=== PATIENT | female | born 1960 | race Hispanic/Latino ===

== ENCOUNTER 2017-07-13 01:28 | Emergency (ER) | payer MEDICARE, MEDICAID ==
[2017-07-13 02:39] LABS: #Basophils 0.1 thou/uL (0.0-0.2); #Eosinphils 0.2 thou/uL (0.0-0.7); #Lymphocytes 1.8 thou/uL (1.20-3.40); #Neutrophils 7.4 thou/uL (1.40-6.50); %Basophils 0.8 % (0.0-1.0); %Eosinophils 1.9 % (0.0-10.0); %Lymphocytes 17.3 % (21.0-51.0); %Monocytes 9.8 % (0.0-10.0); Hematocrit 32.5 % (36.0-47.0); Mean Platelet Volume 6.6 fL (7.4-10.4); Red Blood Cell (RBC) Count 3.41 mill/uL (4.20-5.40); White Blood Cell (WBC) Count 10.6 thou/uL (4.8-10.8)
[2017-07-13 03:01] LABS: Anion Gap 22 mmol/L (10-20); BUN (Urea Nitrogen) 78 mg/dL (9.8-20.1); Calc. Creatinine Clearance 0 mL/min (70-130); Carbon Dioxide 23 mmol/L (22-29); Chloride 94 mmol/L (98-107); Estimated GFR-MDRD 5
[2017-07-13 04:36] LABS: PTT 33.6 SEC (22.9-36.1); Prothrombin Time 14.4 SEC (12.0-14.7)
--- NOTE | 2017-07-13 06:14 | ER ---
DATE OF SERVICE: 07/13/2017 Please refer to the patient's electronic medical record for details of her visit. In summary, the patient presents complaining of facial pain and headache which began earlier on ay, around noon. She had fallen earlier in the day, though denies having struck her head, loss of c onsciousness, or vomited since her fall. She denied any pain or injury at the time of her fall. He r fall was not syncopal. Her family states that \\\\"she just got weak and fell down in a sitting pos ition.\\\\" On exam, the patient's neurologic function is normal, with normal cranial nerves and ybklur-lf-vixt finger. She had no focal motor or sensory deficits, and her speech was normal. She remained hemody namically stable throughout her ER stay. Her pain improved with treatment. Findings are consistent with a cerebellar mass, with some mild effacement of the fourth ventricle per the radiologist chanelle Johns discussed the case with BERNARDO Bettencourt, who reviewed the patient's images and recommends against an emergent MRI, requesting one early this morning. The patient and her family were updated with the findings and plans for admission as well as answered prognosis given the above findings. They verba lized understanding and all questions were answered. She is not septic or toxic appearing. She is not in respiratory distress, and was not hypoxic during her ER stay. There is no evidence of signif icant acute infectious etiology. Of note, her potassium level was elevated, though, there are no ne w EKG changes compared with prior tracing. Calcium administration is not indicated. I discussed th e case with Dr. Monk, her folded cloth taper, who recommended treatment as given. She will be dialyzed lat er this morning. I also discussed the case with Dr. Crooks, the internal medicine physician on duty, who will consult on the patient for medical management given her multiple comorbidities. The patie nt remained stable throughout her ER stay and was stable at the time of admission, with a guarded pr ognosis.
[2017-07-13] MEDS ORDERED: Acetaminophen 325 MG TAB PO PRN (07:18)
[2017-07-13] MEDS ORDERED: Bisacodyl 10 MG SUPP PR PRN (07:18)
[2017-07-13] MEDS ORDERED: Ondansetron HCl/PF 4 MG/2 ML Vial IVP PRN (07:18)
[2017-07-13] MEDS ORDERED: Mag-Al 1200 mg/1200 mg/30 ML UDCUP PO PRN (07:18)
--- NOTE | 2017-07-13 08:18 | CT ---
PRELIMINARY REPORT/[facility]/EMERGENCY AFTER HOURS PROCEDURE: Addendum created by Rolf Chandra MD on 07/13/2017 3:46 AM Central Time ([place] \[place]\ [place]) THIS REPORT CONTAINS FINDINGS THAT MAY BE CRITICAL TO PATIENT CARE. The findings were verbally commu nicated via telephone conference with LADY FIGUEROA at 3:46 AM CDT on 07/13/2017. The findings we re acknowledged and understood. Initial Report created on 07/13/2017 3:17 AM Central Time ([place] \[place]\ [place]) EXAM: CT Head Without Intravenous Contrast EXAM DATE/TIME: Exam ordered 07/13/2017 2:44 AM CLINICAL HISTORY: 56 years old, female; Pain and injury or trauma; Fall; Initial encounter; Abrasion; Not specified; H eadache; Headache not specified; Patient HX: 56 yo f presents to ed C/O face pain that started today at around 1200, worse in mouth and both jaws. States that today around 10: 00 pt felt weak and fell into sitting position on grass, denies hitting head. Denies chest pain, denies SOB, denies fever. TECHNIQUE: Axial computed tomography images of the head/brain without intravenous contrast. COMPARISON: No relevant prior studies available. FINDINGS: Brain: There is a 2.2 cm heterogeneous mass overlying the mid cerebellar region (possibly vermis) wi th mass effect and mild flattening of the fourth ventricle. No hemorrhage. No significant white sammy er disease. No edema. Ventricles: Normal. No ventriculomegaly. Bones/joints: Normal. No acute fracture. Soft tissues: Normal. Sinuses: Unremarkable as visualized. No acute sinusitis. Mastoid air cells: Unremarkable as visualized. No mastoid effusion. IMPRESSION: 1. Midline infratentorial mass with mild flattening of the fourth ventricle. Further evaluation with MRI of brain without and with contrast is advised. 2. No acute intracranial hemorrhage. Thank you for allowing us to participate in the care of your patient. Dictated and Authenticated by: Rolf Chandra MD 07/13/2017 3:17 AM Central Time ([place] \[place]\ [place]) FINAL REPORT NONCONTRAST HEAD CT: Date: 07/13/17 COMPARISON: 09/09/15. HISTORY: Trauma. Post-traumatic pain. TECHNIQUE: Noncontrast head CT is performed from skull base to skull vertex. FINDINGS: This report is in agreement with the preliminary report by Carla. There is no evidence of post-trauma tic sequelae. There is a questionable mass in the midline of the posterior fossa with some mass effe ct upon the fourth ventricle. No associated hydrocephalus. Further evaluation with pre and postcontr ast MRI is recommended. POS: [facility]
--- NOTE | 2017-07-13 08:20 | CT ---
PRELIMINARY REPORT/[facility]/EMERGENCY AFTER HOURS PROCEDURE: EXAM: CT Maxillofacial Without Intravenous Contrast EXAM DATE/TIME: Exam ordered 07/13/2017 2:42 AM CLINICAL HISTORY: 56 years old, female; Pain; Jaw pain; Patient HX: 56 yo f presents to ed C/O face pain that started today at around 1200, worse in mouth and both jaws. States that today around 10: 00 pt felt weak and fell into sitting position on grass, denies hitting head. Denies chest pain, denies SOB, denies fev er. TECHNIQUE: Axial computed tomography images of the face without intravenous contrast. Coronal and sagittal reformatted images were created and reviewed. COMPARISON: No relevant prior studies available. FINDINGS: Bones/joints: No acute facial bone fractures identified. Soft tissues: Normal. Orbits: Normal. Sinuses: Normal. No air-fluid levels. Dental: There are periapical lucencies of several maxillary and mandibular teeth suggestive of denti gerous disease. IMPRESSION: No acute facial bone fractures identified. Thank you for allowing us to participate in the care of your patient. Dictated and Authenticated by: Rolf Chandra MD 07/13/2017 3:13 AM Central Time ([place] \T\ [place]) FINAL REPORT MAXILLOFACIAL CT WITHOUT CONTRAST: Date: 07/13/17 HISTORY: Facial trauma. Facial pain. COMPARISON: None. TECHNIQUE: Maxillofacial CT is performed in the axial plane. Reformatted images are submitted for interpretatio n. FINDINGS: This report is in agreement with the preliminary report by Carla. There is no post-traumatic sequelae . There is evidence of periapical lucencies due to dentigerous disease. POS: [facility]
--- NOTE | 2017-07-13 10:01 | CON ---
DATE OF CONSULTATION: 07/13/2017 PRIMARY CARE PHYSICIAN: [facility] call admission. REASON FOR CONSULTATION: Medical comanagement. HISTORY OF PRESENT ILLNESS: A 56-year-old female with history of diabetes type 2, hyperten marleen, ESRD on hemodialysis, who presented to the emergency room for evaluation of facial pain. [place] ent was also experiencing headache. The patient reports that yesterday when she was coming from [facility], she fell down and she was feeling unsteady. She did not hit her head. She denies any weak ness of either extremity. She never had any seizure problem. In the emergency room, they did a CT brain and patient was found with infratentorial mass with mild flattening of the fourth ventricle. Neurosurgeon was notified after that and they admitted under [facility] service. Patient also had facial bone CT scan, which was negative for any acute process. Austin carver blood tests showed hyperkalemia. Normally, this patient goes for dialysis on Wednesday, a wednesday. Dr. Monk is already consulted. He is going to do dialysis. PAST MEDICAL HISTORY: End-stage renal disease on hemodialysis Wednesday, , and Wednesday; reed tolic heart failure, hypertension, diabetes type 2, obesity. PAST SURGICAL HISTORY: x5, hysterectomy, AV fistula in left upper extremity in 11/2016, t unneled right internal jugular hemodialysis catheter placement. PAST PSYCHIATRIC HISTORY: Reviewed and negative. ALLERGIES: No known drug allergies. FAMILY HISTORY: Hypertension runs among several family members. SOCIAL HISTORY: Patient lives in [place]. She is , currently unemployed. She has a remote hi story of smoking. She denies any alcohol or other illicit drug abuse. REVIEW OF SYSTEMS: The following complete review of systems was negative, unless otherwise mentione d in the HPI or below: Constitutional: Weight loss or gain, ability to conduct usual activities. Skin: Rash, itching. Eyes: Double vision, pain. ENT/Mouth: Nose bleeding, neck stiffness, pain, tenderness. Cardiovascular: Palpitations, dyspnea on exertion, orthopnea. Respiratory: Shortness of breath, wheezing, cough, hemoptysis, fever or night sweats. Gastrointestinal: Poor appetite, abdominal pain, heartburn, nausea, vomiting, constipation, or diar dax. Genitourinary: Urgency, frequency, dysuria, nocturia. Musculoskeletal: Pain, swelling. Neurologic/Psychiatric: Anxiety, depression. Allergy/Immunologic: Skin rash, bleeding tendency. Please see my HPI for pertinent positives and negatives. All other review of systems reviewed and n egative except as mentioned in the HPI. CURRENT HOME MEDICATIONS: Aspirin 81 mg p.o. daily, Lipitor 40 mg p.o. at bedtime, Levemir 10 units subq in the morning, Lisinopril 2.5 mg p.o. daily, metoprolol 50 mg p.o. b.i.d., amlodipine 10 mg p .o. daily, clonidine 0.1 mg p.o. b.i.d., tramadol 50 mg q.4 hours p.r.n. EMERGENCY ROOM COURSE: The patient is given Kayexalate 30 grams, lactulose 30 grams and morphine 4 mg. PHYSICAL EXAMINATION: VITAL SIGNS: On arrival, blood pressure 156/74, pulse 75, respiratory rate 18, temperature 98.2, sa turation 100% on room air, weight 70.3 kilograms. GENERAL: Patient is currently alert, awake, no obvious acute distress. HEAD: Normocephalic, atraumatic. EYES: Pupils round, reactive to light. Extraocular muscles intact. ENT: Poor dentition. Oropharynx within normal limits. Moist mucous membranes, no oral lesion. NECK: Supple. Range of motion is normal. No meningeal signs of irritation. LUNGS: Clear to auscultation without any rhonchi or rales. CARDIAC: S1, S2 regular. No murmur, no gallop, no rub. ABDOMEN: Soft, bowel sounds present, nontender, nondistended. No organomegaly, no mass, no suprapu bic tenderness. BACK: Unremarkable, no CVA tenderness. EXTREMITIES: Upper extremity: Passive movement of all joints are normal, left brachial AV fistula with palpable thrill. Lower extremity: No edema. Good peripheral pulsation. SKIN: No skin rash. HEMATOLOGICAL: No lymphadenopathy. PSYCHIATRIC: Normal affect. NEUROLOGIC: Nonfocal examination. Cranial nerves II through XII intact. Motor and sensation withi n normal limits. No cerebellar sign. Plantar bilateral flexor. IMAGING: EKG based on my review, first degree AV block without any ischemic changes. CT brain show ing midline infratentorial mass with flattening of the fourth ventricle. No hemorrhage. CT facial was negative for any fracture or dislocation. SIGNIFICANT LABORATORY DATA: CBC: WBC 10.6, hemoglobin 11.0, platelet 241. INR 1.1. BMP: Sodium 133, potassium 6.0, chloride 94, anion gap 22, BUN 78, creatinine 8.47, calcium 8.0. ASSESSMENT AND PLAN: 1. Headache and facial pain with infratentorial brain mass on CT scan. Patient is going to be eval uated with MRI brain. Neurosurgeon on the case. We will defer further plan to them. 2. Hyperkalemia. Patient is given Kayexalate, lactulose in the emergency room. We will discontinu e lisinopril. The patient is due for dialysis. Dr. Monk is consulted and we will repeat BMP tomorro w. 3. End-stage renal disease on hemodialysis Wednesday, , and Wednesday. Patient will have dial ysis as per her regular scheduled today and Dr. Monk will see this patient. 4. Diabetes type 2. We will continue insulin as per sliding scale protocol. Diabetic diet will be given. 5. Dyslipidemia. We will continue Lipitor 40 mg p.o. at bedtime. 6. Hypertension. We will continue metoprolol 50 mg p.o. b.i.d., amlodipine 10 mg p.o. daily and cl onidine 0.1 mg twice daily. 7. Anemia of renal disease. The patient will have ferrous sulfate 325 mg p.o. daily upon discharge . 8. Deep venous thrombosis prophylaxis not needed. 9. Gastrointestinal prophylaxis. The patient will have Pepcid 20 mg p.o. daily. CODE STATUS: The patient is FULL CODE. Patient does not have any surrogate decision maker. Disposition and plan based on primary team.
--- NOTE | 2017-07-14 15:16 | HP ---
TIME: 07:30. HISTORY OF PRESENT ILLNESS: Ms. Saldivar is a 56-year-old woman who presents to the Emergency Departm ent for evaluation of facial pain, headache and a fall yesterday around 10:00 in the morning. A CT scan was performed in the Emergency Department that revealed possible infratentorial mass at midline near the cerebellar vermis potentially flattening the fourth ventricle mildly. For this reason, Ne urosurgery was consulted. At bedside, the patient is awake and alert. She answers my questions xiomara ropriately and is oriented x4 to place, location, situation, date and time. She has full function o f all extremities. She denies any other problems than headache and facial pain that seems to run in the distribution of the second and third branch of trigeminal nerve bilaterally. She is not sensit zurdo to this area. She states that this particular pain just began roughly 12-24 hours ago. She has end-stage renal disease. The patient is on hemodialysis 3 times a week. Family reports that she m ore recently has started to become very weak after each of her dialysis treatments, but this is not an uncommon phenomenon. PAST MEDICAL HISTORY: End-stage renal disease, diastolic heart failure, hypertension, diabetes type 2 and obesity. PAST SURGICAL HISTORY: section x5, hysterectomy, AV fistula in the left upper extremity, r ight IJ hemodialysis catheter also. ALLERGIES: No known drug allergies. PHYSICAL EXAMINATION: GENERAL: On examination, again the patient is alert and oriented x4. HEENT: Pupils are equal, round and reactive to light, although she also reports that she has been s eeing an eye doctor for some time for significant visual loss and as such her extraocular movements are intact, but she does not follow my finger very fluently and she is unable to tell me how many fi ngers I am holding up at a distance of about 4 feet. Her speech is not impacted. NECK: Soft and supple. Trachea is midline. EXTREMITIES: She has good strength in bilateral upper and lower extremities. There is no sensory d isturbance that I can turn. NEUROLOGIC: Her cranial nerves other than II and III are completely intact. ASSESSMENT: Possible cerebellar lesion. PLAN: At this time, we will admit patient to observation status on the stroke floor to obtain an MR I with contrast of her brain to better evaluate the findings on CT scan and we will get her in the d ialysis. We will consult the Hospitalist Service as well as Nephrology for this purpose. We will l landon discharge later today or tomorrow.
--- NOTE | 2017-07-14 18:44 | DIS ---
DATE OF ADMISSION: 07/13/2017 DATE OF DISCHARGE: 07/13/2017 HOSPITAL COURSE: Ms. Saldivar was brought into the emergency department this morning for headache, fa cial pain as well as a recent history of falls and finding of abnormal CT scan showing possible infr atentorial mass in midline cerebellum. At this time, patient is stable enough to be discharged home and resume dialysis in her normal setting. We will likely queue up on contrast MRI in the outpatie nt setting in our clinic on to discuss results. Her hospital stay was extraordinarily brie f. She was admitted by Dr. Adriel Felix on 07/13/2017, discharged on the same day within few hour s. Consultations were ordered to Nephrology and hospital service. No additional consultations were ordered. No imaging was ordered and the patient was sent home in stable condition.
== END 2017-07-13 10:43 | disposition home or self-care (01) ==
LOC: ERS 01:28
DX: G93.9 Disorder of brain, unspecified (principal); I12.0 Hypertensive chronic kidney disease with stage 5 chronic kidney disease or end stage renal disease; N18.6 End stage renal disease; E87.5 Hyperkalemia; E11.9 Type 2 diabetes mellitus without complications; E78.5 Hyperlipidemia, unspecified; Z87.891 Personal history of nicotine dependence; Z79.4 Long term (current) use of insulin; Z79.82 Long term (current) use of aspirin; Z79.891 Long term (current) use of opiate analgesic; Z79.899 Other long term (current) drug therapy
CPT/HCPCS: 70450; 70486; 80048; 85025; 85610; 85730; 93005; J2270

== ENCOUNTER 2017-07-13 20:32 | Emergency (ER) | payer MEDICARE, MEDICAID ==
[2017-07-13 21:27] LABS: #Eosinphils 0.1 thou/uL (0.0-0.7); #Lymphocytes 1.2 thou/uL (1.20-3.40); #Monocytes 0.7 thou/uL (0.11-0.59); #Neutrophils 6.9 thou/uL (1.40-6.50); %Basophils 0.3 % (0.0-1.0); %Eosinophils 1.4 % (0.0-10.0); %Lymphocytes 13.4 % (21.0-51.0); %Monocytes 7.8 % (0.0-10.0); Hematocrit 38.2 % (36.0-47.0); Mean Platelet Volume 6.8 fL (7.4-10.4); Red Blood Cell (RBC) Count 3.99 mill/uL (4.20-5.40)
[2017-07-13 21:47] LABS: PTT 30.6 SEC (22.9-36.1); Prothrombin Time 14.6 SEC (12.0-14.7)
[2017-07-13 21:48] LABS: ALT (SGPT) 9 U/L (8-55); AST (SGOT) 15 U/L (5-34); Alkaline Phosphatase 113 U/L (40-150); Anion Gap 17 mmol/L (10-20); BUN (Urea Nitrogen) 32 mg/dL (9.8-20.1); Bilirubin, Total 0.4 mg/dL (0.2-1.2); Calc. Creatinine Clearance 0 mL/min (70-130); Calcium 8.7 mg/dL (7.8-10.44); Carbon Dioxide 31 mmol/L (22-29); Chloride 92 mmol/L (98-107); Estimated GFR-MDRD 9; Globulin 4.9 g/dL (2.4-3.5); Protein, Total 8.9 g/dL (6.0-8.3)
--- NOTE | 2017-07-13 21:57 | RAD ---
ACUTE ABDOMINAL SERIES: 07/13/17 HISTORY: Headache since last night. Nausea and vomiting. CHEST X-RAY: Compared to study on 01/04/17. The cardiac silhouette and pulmonary vasculature are within normal limits. The lungs are clear. The tunneled right sided hemodialysis catheter has been removed. No other interval change. UPRIGHT AND SUPINE VIEWS OF THE ABDOMEN: There is gaseous distention of loops of bowel which appear to represent the colon. There is a small to moderate amount of retained fecal material seen in the region of the ascending colon. There is a small calcification seen in the left abdomen adjacent to the L3-4 interspace which cannot be further localized on this exam. May potentially represent a calcification in gonadal vein, although uretera l calculus cannot be entirely excluded. IMPRESSION: 1. Gaseous distention of the colon with moderate amount of retained fecal material in the ascen ding colon. 2. Calcification just to the left of the L3-4 interspace which cannot be further localized. Thi s may represent a gonadal vein calcification although a ureteral calculus is not entirely excluded. POS: SALLY
--- NOTE | 2017-07-13 22:59 | MRI ---
MRI BRAIN WITHOUT IV CONTRAST: 07/13/17 HISTORY: Headache. Patient was mowing the grass today and felt weak and fell into a sitting position. Headach e. Report from recent CT of the head questioned mass in the midline posterior fossa. COMPARISON: CT head on 07/13/17 at 0244 hours. FINDINGS: There is no evidence of a mass seen in the midline in the region of the cerebellar vermis as questio delon on CT exam. There is no edema present in this region. There is a focal areas of susceptibility seen within the left cerebellar hemisphere on gradient ech o images which demonstrates corresponding decreased signal intensity on T2 and FLAIR images and may represent hemosiderin deposition related to prior hemorrhage. No abnormality seen in this region on the CT scan exam. There is scattered punctate patchy areas of increased FLAIR and T2 weighted signal intensity in the periventricular white matter likely reflective of mild to moderate chronic small vessel ischemic charo nges. There is no evidence of an acute infarction. Septum pellucidum and third ventricle are in the midline. There is mild cerebral volume loss not une xpected for the patient's age. Ventricular system is normal in size, shape and position. Grossly appropriate flow voids are demonstrated at the base of the brain. Mucosal thickening is present in the left sphenoid sinus. The picayune lenses are absent. There is sug gestion of a small mastoid effusion on the right. Incidentally noted is an empty sella turcica. There is suggested minimal mucosal thickening in the r ight maxillary antrum. IMPRESSION: 1. No evidence of a mass in the midline posterior fossa in expected location of the cerebellar vermis as questioned on the CT scan exam. Findings on this study are related to normal midline struc tures and findings on the CT scan exam may be accentuated due to plane of scanning. There is no zarina a or obvious mass in this region. 2. Focal area of susceptibility left cerebellar hemisphere likely related to hemosiderin deposi tion from prior focal hemorrhage or less likely very small cavernoma. 3. Chronic small vessel ischemic change. 4. Mild cerebral and cerebellar volume loss. 5. Minimal sinus disease. 6. Incidental note is made of an empty sella turcica. POS: [facility]
[2017-07-13] MEDS ORDERED: Ondansetron HCl/PF 4 MG/2 ML Vial ONE (23:33)
--- NOTE | 2017-07-30 14:27 | EKG ---
Test Reason : Blood Pressure : / mmHG Vent. Rate : 082 BPM Atrial Rate : 082 BPM P-R Int : 204 ms QRS Dur : 106 ms QT Int : 404 ms P-R-T Axes : 039 -56 056 degrees QTc Int : 472 ms Normal sinus rhythm Possible Left atrial enlargement Left axis deviation Left ventricular hypertrophy Cannot rule out Septal infarct , age undetermined Abnormal ECG Confirmed by MANINDER BARRAZA MD ([id number]), newspaper photo editor CAMILLA MUNGUIA ([id number]) on 07/30/2017 2:26:43 PM Referred By: MADI Confirmed By:MANINDER BARRAZA MD
== END 2017-07-14 00:26 | disposition home or self-care (01) ==
LOC: ERS 20:32
DX: I10 Essential (primary) hypertension (principal); E11.9 Type 2 diabetes mellitus without complications; E78.5 Hyperlipidemia, unspecified; Z87.891 Personal history of nicotine dependence; Z79.891 Long term (current) use of opiate analgesic; Z79.899 Other long term (current) drug therapy; Z79.4 Long term (current) use of insulin; Z79.82 Long term (current) use of aspirin
CPT/HCPCS: 36416; 70450; 70486; 70551; 74022; 80048; 85025; 85610; 85730; 93005; 94760; 96374; 96375; J2270; J2405

== ENCOUNTER 2017-07-17 08:29 | Emergency (ER) | payer MEDICARE, MEDICAID ==
[2017-07-17 09:00] LABS: #Eosinphils 0.2 thou/uL (0.0-0.7); #Lymphocytes 1.7 thou/uL (1.20-3.40); #Monocytes 0.7 thou/uL (0.11-0.59); #Neutrophils 4.1 thou/uL (1.40-6.50); %Basophils 0.7 % (0.0-1.0); %Eosinophils 2.6 % (0.0-10.0); %Monocytes 9.8 % (0.0-10.0); Hematocrit 36.2 % (36.0-47.0); Mean Platelet Volume 6.7 fL (7.4-10.4); Red Blood Cell (RBC) Count 3.82 mill/uL (4.20-5.40); White Blood Cell (WBC) Count 6.6 thou/uL (4.8-10.8)
[2017-07-17 09:23] LABS: ALT (SGPT) 9 U/L (8-55); AST (SGOT) 20 U/L (5-34); Alkaline Phosphatase 96 U/L (40-150); Anion Gap 25 mmol/L (10-20); BUN (Urea Nitrogen) 53 mg/dL (9.8-20.1); Bilirubin, Total 0.3 mg/dL (0.2-1.2); CK (CPK) 125 U/L (29-168); Calc. Creatinine Clearance 0 mL/min (70-130); Calcium 8.9 mg/dL (7.8-10.44); Carbon Dioxide 24 mmol/L (22-29); Chloride 94 mmol/L (98-107); Estimated GFR-MDRD 6; Globulin 4.6 g/dL (2.4-3.5); Protein, Total 8.3 g/dL (6.0-8.3)
[2017-07-17 09:27] LABS: Troponin I 0.017 ng/mL (< 0.028)
[2017-07-17] MEDS ORDERED: traMADol HCl 50 MG TAB ONE (10:17)
--- NOTE | 2017-07-20 15:09 | RAD ---
ACUTE ABDOMINAL SERIES: CHEST XRAY: 07/13/17 HISTORY: Headache since last night. Nausea and vomiting. CHEST X-RAY: Compared to study on 01/04/17. The cardiac silhouette and pulmonary vasculature are within normal limits. The lungs are clear. The tunneled right sided hemodialysis catheter has been removed. No other interval change. UPRIGHT AND SUPINE VIEWS OF THE ABDOMEN: There is gaseous distention of loops of bowel which appear to represent the colon. There is a small to moderate amount of retained fecal material seen in the region of the ascending colon. There is a small calcification seen in the left abdomen adjacent to the L3-4 interspace which cannot be further localized on this exam. May potentially represent a calcification in gonadal vein, although uretera l calculus cannot be entirely excluded. IMPRESSION: 1. Gaseous distention of the colon with moderate amount of retained fecal material in the asce nding colon. 2. Calcification just to the left of the L3-4 interspace which cannot be further localized. This may represent a gonadal vein calcification; although, a ureteral calculus is not entirely excluded.
== END 2017-07-17 11:25 | disposition home or self-care (01) ==
LOC: ERS 08:29
DX: R68.84 Jaw pain (principal); E11.9 Type 2 diabetes mellitus without complications; E78.5 Hyperlipidemia, unspecified; I10 Essential (primary) hypertension; Z87.891 Personal history of nicotine dependence
CPT/HCPCS: 36415; 71010; 80053; 82553; 83880; 84484; 85025; 93005; 94760

== ENCOUNTER 2017-08-06 12:51 | Outpatient (CLI) | payer MEDICARE, MEDICAID ==
--- NOTE | 2017-08-06 15:43 | ULT ---
RIGHT BREAST ULTRASOUND: Date: 08/06/17 HISTORY: Abnormal mammography. COMPARISON: Mammogram same day. FINDINGS: Superficial soft tissues of the right breast, 12 o'clock, 5.0 cm from the nipple, has a wider than t all complicated cyst. The cyst is ovoid in nature and measures approximately 1.8 x 0.7 cm. There is an echogenic halo around this, which is circumferential, likely sequelae of underlying escaped fluid and hemorrhage. There is overlying hematoma at this area seen on the skin. IMPRESSION: BIRADS 3: Probably Benign Finding - Short-Interval Follow-Up Suggested Complicated cyst right breast, 12 o'clock, 5.0 cm from the nipple. This likely represents a recently ruptured cyst. No mural nodularity. No internal septations. Follow-up ultrasound and mammogram in 6 months recommended. The facility will notify the patient of the need for additional imaging services. POS: [facility]
--- NOTE | 2017-08-06 15:47 | MMO ---
BILATERAL DIAGNOSTIC MAMMOGRAM: Date: 08/06/17 HISTORY: Palpable right breast mass. COMPARISON: None. FINDINGS: Bilateral diagnostic CC and MLO, as well as right ML mammograms performed. There is a palpable marke r in the right breast with a 2.1 x 2.0 cm mass. This has well-defined borders and is sharply margina nancy and is somewhat lobular in appearance. Benign calcifications left breast. IMPRESSION: BIRADS 3: Probably Benign Finding - Short-Interval Follow-Up Suggested Given the lack of comparison examinations, the likely complicated cyst in the right breast, 12 o'cathryn ck, 5.0 cm from the nipple, should be evaluated in 6 months with mammogram and ultrasound. The facility will notify the patient of the need for additional imaging services. POS: [facility]
== END 2017-08-06 12:52 | disposition home or self-care (01) ==
LOC: MAMMO 12:51
PROVIDERS: ATTEND Family Medicine
DX: N63.0 Unspecified lump in unspecified breast (principal)
CPT/HCPCS: 76642; G0204; 77066

== ENCOUNTER 2017-08-19 10:21 | Day surgery (SDC) | payer MEDICARE, MEDICAID ==
[2017-08-18 12:57] VITALS: BMI 32.4
[~2017-08-19 10:21] MED LIST: Cyclopentolate 1% Opth Drop 2 ML BOT FS SCH; Fluorouracil 100 MG, EPINEPHrine 0.3 MG in Ophthalmic Irrigation Solution 500 ML IVPB SCH; Phenylephrine 2.5% Ophth Soln 5 ML BOT FS SCH
[2017-08-19] MEDS ORDERED: Phenylephrine 2.5% Ophth Soln 5 ML BOT ONE (10:51)
[2017-08-19] MEDS ORDERED: Cyclopentolate 1% Opth Drop 2 ML BOT ONE (10:51)
[2017-08-19] MEDS ORDERED: Fentanyl 100 MCG/2 ML VIAL ONE (11:46)
[2017-08-19] MEDS ORDERED: Diprivan 20 ML ONE (11:46)
[2017-08-19] MEDS ORDERED: Midazolam HCl 2 mg/2 ml Vial ONE (11:46)
[2017-08-19] MEDS ORDERED: Propofol 200 MG/20 ML VIAL ONE (11:54)
[2017-08-19] MEDS ORDERED: Lidocaine 2% MPF 10 ML AMP (For Epidural Use) ONE (11:54)
--- NOTE | 2017-08-19 13:50 | OP ---
DATE OF PROCEDURE: 08/19/2017 PREOPERATIVE DIAGNOSIS: Tractional retinal detachment, right eye. POSTOPERATIVE DIAGNOSIS: Tractional retinal detachment, right eye. PROCEDURE: Pars plana vitrectomy, complex retinal detachment repair, right eye. SURGEON: Grey Lugo M.D. ANESTHESIA: Local with monitored anesthesia care. COMPLICATIONS: None. PROCEDURE IN DETAIL: The patient was identified in the preoperative holding area. Appropriate info rmed consent for the planned surgical procedure on the right eye had been obtained. The patient was transported to the operative suite where appropriate cardiopulmonary monitoring was established. L ocal anesthesia was obtained using retrobulbar and modified Van Lint lid block using 50/50 mixture o f 4% lidocaine and 0.75% bupivacaine. The patient was prepped and draped in the usual sterile ian r for ophthalmic surgery on the right eye. Lid speculum was placed in the right eye. The 25-gauge trocars were placed in conjunctiva and sclera supratemporally, inferotemporally, and supranasally. Infusion line was placed inferotemporally. Light pipe and vitreous cutter were inserted into the ey e. Core of vitrectomy was performed. Extensive membranes balling up the entire foveal and macular area was identified. These were carefully dissected away. A large dense area with plaque was infer ior to the inferior temporal arcade and this required extensive dissection. Holes were found infero temporally and inferiorly. Complete air fluid exchange was performed with 10 minutes being allowed for fluid to drain posteriorly. Very thick subretinal fluid was drained from underneath the retina. Panretinal photocoagulation was placed into all non-macular areas of the retina. Silicone oil was infused into the eye. Trocars were sutured and closed with 6-0 plain gut suture and 7-0 Vicryl sut ure. Conjunctiva was closed with 6-0 plain gut suture. Retrobulbar Kenalog and subconjunctival Anc ef were placed. Atropine and antibiotic ointment were placed, and the eye was patched and shielded. The patient was taken to the postoperative recovery unit in good condition having suffered no imme diate perioperative complications. DISCHARGE INSTRUCTIONS: The patient was instructed to keep patch and shield on, avoid lifting or be nding, and avoid flat on back positioning, and followup in the morning with Dr. Lugo.
== END 2017-08-19 14:22 | disposition home or self-care (01) ==
LOC: SDC 10:21
PROVIDERS: ATTEND Ophthalmology Retina Specialist
PROC: 08N43ZZ Release Right Vitreous, Percutaneous Approach (ICD-10-PCS; principal; 2017-08-19)
PROC: 08QE3ZZ Repair Right Retina, Percutaneous Approach (ICD-10-PCS; 2017-08-19)
DX: H33.41 Traction detachment of retina, right eye (principal); Z90.710 Acquired absence of both cervix and uterus; Z98.890 Other specified postprocedural states; Z87.891 Personal history of nicotine dependence
CPT/HCPCS: 67113; 82962; C1814; 36416; J0171; J2001; J2250; J2704; J3010; J9190

== ENCOUNTER 2017-08-28 16:27 | Emergency (ER) | payer MEDICARE, MEDICAID ==
--- NOTE | 2017-08-28 17:29 | RAD ---
EXAM: ONE VIEW CHEST 08/28/17 COMPARISON: 01/04/17. HISTORY: Altered mental status. FINDINGS: Portable upright chest: Normal cardiac silhouette. The pulmonary vessels and hilum are normal. No mass. No consolidation. No pneumothorax or osseous abnormalities. IMPRESSION: No acute cardiopulmonary process. POS: [facility]
[2017-08-28 17:30] LABS: #Basophils 0.1 thou/uL (0.0-0.2); #Eosinphils 0.2 thou/uL (0.0-0.7); #Lymphocytes 1.8 thou/uL (1.20-3.40); #Monocytes 0.7 thou/uL (0.11-0.59); #Neutrophils 6.3 thou/uL (1.40-6.50); %Basophils 0.6 % (0.0-1.0); %Lymphocytes 20.2 % (21.0-51.0); %Monocytes 7.6 % (0.0-10.0); Hematocrit 37.3 % (36.0-47.0); Mean Platelet Volume 6.9 fL (7.4-10.4); Red Blood Cell (RBC) Count 3.94 mill/uL (4.20-5.40)
[2017-08-28 17:39] LABS: PTT 26.5 SEC (22.9-36.1); Prothrombin Time 13.2 SEC (12.0-14.7)
[2017-08-28 17:50] LABS: ALT (SGPT) 7 U/L (8-55); AST (SGOT) 14 U/L (5-34); Alkaline Phosphatase 111 U/L (40-150); Anion Gap 18 mmol/L (10-20); BUN (Urea Nitrogen) 27 mg/dL (9.8-20.1); Bilirubin, Total 0.4 mg/dL (0.2-1.2); CK (CPK) 106 U/L (29-168); Calc. Creatinine Clearance 0 mL/min (70-130); Calcium 9.4 mg/dL (7.8-10.44); Carbon Dioxide 27 mmol/L (22-29); Chloride 97 mmol/L (98-107); Estimated GFR-MDRD 15; Globulin 4.7 g/dL (2.4-3.5); Magnesium 2.3 mg/dL (1.6-2.6); Phosphorus 2.2 mg/dL (2.3-4.7); Protein, Total 8.8 g/dL (6.0-8.3)
[2017-08-28 18:03] LABS: Troponin I Less than 0.010 ng/mL (< 0.028)
[2017-08-28 18:28] LABS: Bilirubin Negative (Negative); Blood, Urine Negative (Negative); Glucose, Urine (Dipstick) 250 mg/dL (Negative); Ketone, Urine Negative (Negative); Nitrite Negative (Negative); Protein, Urine (Dipstick) 300 mg/dL (Neg-Trace); Urobilinogen 0.2 mg/dL (0.2-1.0)
[2017-08-28 18:29] LABS: Bacteria/HPF 3+ HPF (None Seen); Hyaline Casts/LPF 0-3 HYALINE CAST LPF (0-3 Hyaline); RBC/HPF 0-3 HPF (0-3)
[2017-08-28] MEDS ORDERED: Nitrofurantoin Monohyd/M-Cryst 100 MG CAP PO SCH (19:00)
== END 2017-08-28 19:35 | disposition home or self-care (01) ==
LOC: ERS 16:27
DX: N39.0 Urinary tract infection, site not specified (principal); E11.9 Type 2 diabetes mellitus without complications; E78.5 Hyperlipidemia, unspecified; I10 Essential (primary) hypertension; Z99.2 Dependence on renal dialysis; Z87.891 Personal history of nicotine dependence; Z79.891 Long term (current) use of opiate analgesic
CPT/HCPCS: 36415; 71010; 80053; 81003; 81015; 82553; 83735; 84100; 84484; 85025; 85610; 85730; 93005

== ENCOUNTER 2017-09-15 20:19 | Emergency (ER) | payer MEDICARE, MEDICAID ==
[2017-09-15 20:53] LABS: #Basophils 0.1 thou/uL (0.0-0.2); #Eosinphils 0.2 thou/uL (0.0-0.7); #Lymphocytes 1.9 thou/uL (1.20-3.40); #Monocytes 0.6 thou/uL (0.11-0.59); #Neutrophils 5.4 thou/uL (1.40-6.50); %Basophils 0.6 % (0.0-1.0); %Eosinophils 2.7 % (0.0-10.0); %Lymphocytes 22.9 % (21.0-51.0); %Monocytes 6.9 % (0.0-10.0); Hematocrit 34.6 % (36.0-47.0); Mean Platelet Volume 6.8 fL (7.4-10.4); Red Blood Cell (RBC) Count 3.61 mill/uL (4.20-5.40); White Blood Cell (WBC) Count 8.1 thou/uL (4.8-10.8)
--- NOTE | 2017-09-15 20:53 | RAD ---
CHEST ONE VIEW 09/15/17 HISTORY: Cough and nausea. COMPARISON: Chest one view, 08/28/17. FINDINGS: The lungs are without focal air space consolidation, pneumothorax or effusion. The cardiac silhouette and mediastinal are similar. IMPRESSION: No acute intrathoracic abnormality. POS: [facility]
[2017-09-15 21:01] LABS: Prothrombin Time 13.7 SEC (12.0-14.7)
[2017-09-15 21:02] LABS: PTT 30.2 SEC (22.9-36.1)
[2017-09-15 21:15] LABS: ALT (SGPT) 10 U/L (8-55); AST (SGOT) 15 U/L (5-34); Alkaline Phosphatase 130 U/L (40-150); Anion Gap 19 mmol/L (10-20); BUN (Urea Nitrogen) 60 mg/dL (9.8-20.1); Bilirubin, Total 0.4 mg/dL (0.2-1.2); CK (CPK) 168 U/L (29-168); Calc. Creatinine Clearance 0 mL/min (70-130); Calcium 9.4 mg/dL (7.8-10.44); Carbon Dioxide 27 mmol/L (22-29); Chloride 95 mmol/L (98-107); Estimated GFR-MDRD 7; Globulin 4.6 g/dL (2.4-3.5); Protein, Total 8.8 g/dL (6.0-8.3)
--- NOTE | 2017-09-15 21:20 | CT ---
CT BRAIN WITHOUT CONTRAST 09/15/17 HISTORY: Dizziness. COMPARISON: CT brain 07/13/17. FINDINGS: Mild microvascular ischemic changes. No acute territorial infarct or hemorrhage. No midline shift or mass effect. Ventricular size and extra-axial CSF disc spaces are normal. Calvarium is intact. IMPRESSION: 1. No acute intracranial abnormality. No significant change. 2. New right vitreous hemorrhage from 07/13/17. Code CR. Nurse practitioner notified of findings on 09/15/17, 9:12 p.m. POS: [facility]
[2017-09-15 21:23] LABS: Troponin I 0.015 ng/mL (< 0.028)
[2017-09-15 21:26] LABS: Bilirubin Negative (Negative); Blood, Urine Negative (Negative); Glucose, Urine (Dipstick) 500 mg/dL (Negative); Ketone, Urine Negative (Negative); Nitrite Negative (Negative); Protein, Urine (Dipstick) 300 mg/dL (Neg-Trace); Urobilinogen 0.2 mg/dL (0.2-1.0)
[2017-09-15 21:30] LABS: Bacteria/HPF 1+ HPF (None Seen); Hyaline Casts/LPF 4-6 HYALINE CAST LPF (0-3 Hyaline); RBC/HPF 0-3 HPF (0-3); WBC/HPF 0-3 HPF (0-3)
[2017-09-15] MEDS ORDERED: Acetaminophen 500 MG TAB ONE (22:51)
== END 2017-09-15 23:15 | disposition home or self-care (01) ==
LOC: ERS 20:19
DX: R05 Cough (principal); R42 Dizziness and giddiness; E11.9 Type 2 diabetes mellitus without complications; I10 Essential (primary) hypertension; E78.5 Hyperlipidemia, unspecified; Z79.4 Long term (current) use of insulin; Z79.82 Long term (current) use of aspirin; Z79.899 Other long term (current) drug therapy
CPT/HCPCS: 51701; 70450; 71010; 80053; 81003; 81015; 82274; 82550; 82553; 83880; 84484; 85025; 85610; 85730; 93005; A4353

== ENCOUNTER 2017-10-24 20:56 | Emergency (ER) | payer MEDICARE, MEDICAID ==
[2017-10-24 22:48] LABS: #Basophils 0.1 thou/uL (0.0-0.2); #Eosinphils 0.3 thou/uL (0.0-0.7); #Lymphocytes 1.8 thou/uL (1.20-3.40); #Monocytes 1.2 thou/uL (0.11-0.59); #Neutrophils 8.3 thou/uL (1.40-6.50); %Basophils 0.5 % (0.0-1.0); %Eosinophils 2.3 % (0.0-10.0); %Lymphocytes 15.7 % (21.0-51.0); %Monocytes 10.1 % (0.0-10.0); %Neutrophils 71.4 % (42.0-75.0); Hemoglobin 10.2 g/dL (12.0-16.0); Mean Corpuscular HGB CONC 32.1 g/dL (32.0-36.0); Mean Corpuscular Hemoglobin 30.9 pg (27.0-31.0); Mean Corpuscular Volume 96.1 fl (81.0-99.0); Mean Platelet Volume 6.4 fL (7.4-10.4); Platelet Count 294 thou/uL (130-400); RBC Distribution Width 12.9 % (11.5-14.5); Red Blood Cell (RBC) Count 3.31 mill/uL (4.20-5.40); White Blood Cell (WBC) Count 11.7 thou/uL (4.8-10.8)
[2017-10-24] MEDS ORDERED: Acetaminophen 325 MG TAB ONE (22:55)
[2017-10-24] MEDS ORDERED: Dexamethasone 4 mg/ml Vial ONE (22:55)
[2017-10-24 23:09] LABS: ALT (SGPT) 9 U/L (8-55); AST (SGOT) 15 U/L (5-34); Albumin 3.6 g/dL (3.5-5.0); Alkaline Phosphatase 127 U/L (40-150); Anion Gap 17 mmol/L (10-20); BUN (Urea Nitrogen) 41 mg/dL (9.8-20.1); Bilirubin, Total 0.2 mg/dL (0.2-1.2); Calc. Creatinine Clearance 0 mL/min (70-130); Calcium 8.8 mg/dL (7.8-10.44); Carbon Dioxide 29 mmol/L (22-29); Chloride 93 mmol/L (98-107); Estimated GFR-MDRD 9; Globulin 4.1 g/dL (2.4-3.5); Glucose 197 mg/dL (70-105); Potassium 4.1 mmol/L (3.5-5.1); Protein, Total 7.7 g/dL (6.0-8.3); Sodium 135 mmol/L (136-145)
--- NOTE | 2017-10-24 23:21 | RAD ---
CHEST TWO VIEWS: History: Cough. Comparison: 09-15-17 FINDINGS: Lungs are without focal airspace consolidation. No pneumothorax or effusion. Cardiac silhouette and m ediastinal contours re similar. No acute osseous abnormality. IMPRESSION: No acute intrathoracic abnormality. POS: [facility]
== END 2017-10-25 00:20 | disposition home or self-care (01) ==
LOC: ERS 20:56
DX: J18.9 Pneumonia, unspecified organism (principal); E11.9 Type 2 diabetes mellitus without complications; E78.5 Hyperlipidemia, unspecified; I10 Essential (primary) hypertension; Z87.891 Personal history of nicotine dependence
CPT/HCPCS: 36415; 71046; 80053; 85025; 94640; J1100; J7620

== ENCOUNTER 2017-11-18 06:11 | Day surgery (SDC) | payer MEDICARE, MEDICAID ==
[2017-11-17 13:50] VITALS: BMI 32.5
[~2017-11-18 06:11] MED LIST changes: +Fentanyl 100 MCG/2 ML VIAL ONE; +Midazolam HCl 2 mg/2 ml Vial ONE; +PROPOFOL 20 ML ONE
[2017-11-18] MEDS ORDERED: Cyclopentolate 1% Opth Drop 2 ML BOT ONE (06:26)
[2017-11-18] MEDS ORDERED: Phenylephrine 2.5% Ophth Soln 5 ML BOT ONE (06:26)
[2017-11-18] MEDS ORDERED: Metoprolol Tartrate 5 MG/5 ML VIAL ONE ×2 (06:57→14:32)
[2017-11-18] MEDS ORDERED: Acetaminophen 500 MG TAB ONE (10:13)
--- NOTE | 2017-11-18 11:07 | OP ---
DATE OF PROCEDURE: 11/18/2017 PREOPERATIVE DIAGNOSIS: Tractional retinal detachment, right eye. POSTOPERATIVE DIAGNOSIS: Tractional retinal detachment, right eye. PROCEDURES PERFORMED: Pars plana vitrectomy and retinal detachment repair, right eye. SURGEON: Grey Lugo M.D. ANESTHESIA: Local monitored anesthesia care. COMPLICATIONS: None. PROCEDURE IN DETAIL: The patient was identified in the preoperative holding area. Appropriate infor med consent for the planned surgical procedure on the right eye had been obtained. The patient was t ransported to the operative suite where appropriate cardiopulmonary monitoring was established. Loca l anesthesia was obtained using retrobulbar and modified Van Lint lid block using 50/50 mixture of 4% lidocaine and 0.75% bupivacaine. The patient was prepped and draped in the usual sterile manner for ophthalmic surgery on the right eye. Lid speculum was placed in the right eye. The 25-gauge trocar s were placed through the conjunctiva and sclera supratemporally, inferotemporally, and supranasally. Infusion line was placed inferotemporally. A 20 gauge sclerotomy was created superiorly, silicone oil was removed. Extensive traction was noted on the retinal surface. This was elevated using a com bination of pick, end-gripping forceps where areas of very strong attachment were noted nasally. Sub retinal fibrosis was noted superonasally, supratemporally and large epiretinal membrane was noted tem poral to the fovea. These were all peeled or traction was removed and small areas of dissection of t he retina were completed, especially infranasally. Complete air fluid exchange was performed with 10 minutes being allowed for fluid to drain posteriorly. No further bleeding was noted. The retina wa s noted to be reattached. Laser was placed into all non-macular areas of the retina. Silicone oil w as re-infused into the eye and all sclerotomy was sutured closed. Retrobulbar Kenalog and subconjunc tival Ancef were placed. Atropine and antibiotic ointment were placed, and the eye was patched and s hielded. The patient was taken to the postoperative recovery unit in good condition having suffered no immediate perioperative complications. DISCHARGE INSTRUCTIONS: The patient was instructed to keep patch and shield on, avoid lifting or pam ding, and follow up in the morning with Dr. Lugo.
[2017-11-18] MEDS ORDERED: PROPOFOL 200 MG/20 ML VIAL ONE (14:32)
[2017-11-18] MEDS ORDERED: Lidocaine 1% PF 5 ML VIAL ONE (14:32)
== END 2017-11-18 10:16 | disposition home or self-care (01) ==
LOC: SDC 06:11
PROVIDERS: ATTEND Ophthalmology Retina Specialist
PROC: 08B43ZZ Excision of Right Vitreous, Percutaneous Approach (ICD-10-PCS; principal; 2017-11-18)
PROC: 08NE3ZZ Release Right Retina, Percutaneous Approach (ICD-10-PCS; 2017-11-18)
DX: H33.41 Traction detachment of retina, right eye (principal); I77.0 Arteriovenous fistula, acquired; Z90.711 Acquired absence of uterus with remaining cervical stump; Z98.890 Other specified postprocedural states
CPT/HCPCS: 67113; 82962; C1814; 36416; J0171; J2001; J2250; J2704; J3010; J9190

== ENCOUNTER 2018-01-04 16:47 | Outpatient (CLI) | payer MEDICARE, MEDICAID | END 2018-01-04 16:48 | disposition home or self-care (01) | LOC: BICRAD 16:47 | PROVIDERS: ATTEND Family Medicine | DX: M25.521 Pain in right elbow (principal); M19.021 Primary osteoarthritis, right elbow ==

== ENCOUNTER 2018-02-17 12:27 | Day surgery (SDC) | payer MEDICARE, MEDICAID ==
[2018-02-16 12:25] VITALS: BMI 32.3
[~2018-02-17 12:27] MED LIST changes: +EPINEPHrine 0.3 MG in Ophthalmic Irrigation Solution 500 ML FS SCH; -Fentanyl 100 MCG/2 ML VIAL ONE; -Fluorouracil 100 MG, EPINEPHrine 0.3 MG in Ophthalmic Irrigation Solution 500 ML IVPB SCH; -Midazolam HCl 2 mg/2 ml Vial ONE; -PROPOFOL 20 ML ONE
[2018-02-17] MEDS ORDERED: Cyclopentolate 1% Opth Drop 2 ML BOT ONE (13:01)
[2018-02-17] MEDS ORDERED: Phenylephrine 2.5% Ophth Soln 5 ML BOT ONE (13:01)
[2018-02-17] MEDS ORDERED: PROPOFOL 200 MG/20 ML VIAL ONE (13:09)
[2018-02-17] MEDS ORDERED: Lidocaine 1% PF 5 ML VIAL ONE (13:09)
[2018-02-17] MEDS ORDERED: Labetalol 100 MG/20 ML MDV ONE (13:09)
[2018-02-17] MEDS ORDERED: Fentanyl 100 MCG/2 ML VIAL ONE (13:12)
[2018-02-17] MEDS ORDERED: Midazolam HCl 2 mg/2 ml Vial ONE (13:12)
[2018-02-17] MEDS ORDERED: PROPOFOL 20 ML ONE (13:12)
[2018-02-17] MEDS ORDERED: Lidocaine 2% 10 ML INJ ONE (13:12)
[2018-02-17] MEDS ORDERED: Labetalol HCl 100 MG/20 ML VIAL ONE (13:34)
--- NOTE | 2018-02-17 15:40 | OP ---
DATE OF PROCEDURE: 02/17/2018 PREOPERATIVE DIAGNOSIS: Tractional retinal detachment, right eye. POSTOPERATIVE DIAGNOSIS: Tractional retinal detachment, right eye. PROCEDURE PERFORMED: Complex retinal detachment repair, right eye. SURGEON: Grey Lugo M.D. ANESTHESIA: Local with monitored anesthesia care. COMPLICATIONS: None. PROCEDURE IN DETAIL: The patient was identified in the preoperative holding area. Appropriate infor med consent for the planned surgical procedure on the right eye had been obtained. The patient was t ransported to the operative suite where appropriate cardiopulmonary monitoring established. Local an esthesia was obtained using retrobulbar block. The patient was prepped and draped in the usual steri le manner for ophthalmic surgery on the right eye. Lid speculum was placed in the right eye. A 20-g auge sclerotomy was created superiorly and silicone oil was removed from the eye. Light pipe and vit reous cutter were inserted into the eye. Traction was removed from the retinal surface. Retinectomi es were created temporally and nasally removing subretinal fibrosis and intraretinal fibrosis, superf icial scar tissue was peeled, retina was flattened and laser was placed under air. Silicone oil was re-infused into the eye and all sclerotomies were sutured closed with 7-0 Vicryl suture. Retrobulbar Kenalog and subconjunctival Ancef were placed. Atropine and antibiotic ointment were placed and the eye was patched and shielded. Patient taken to the postoperative recovery unit in good condition [facility] suffered no immediate perioperative complications. DISCHARGE INSTRUCTIONS: The patient was instructed to keep patch and shield on, avoid lifting or pam ding, and follow up in the morning with Dr. Lugo.
== END 2018-02-17 16:45 | disposition home or self-care (01) ==
LOC: SDC 12:27
PROVIDERS: ATTEND Ophthalmology Retina Specialist
PROC: 08T43ZZ Resection of Right Vitreous, Percutaneous Approach (ICD-10-PCS; principal; 2018-02-17)
DX: H33.41 Traction detachment of retina, right eye (principal); Z79.4 Long term (current) use of insulin; Z79.82 Long term (current) use of aspirin; Z79.899 Other long term (current) drug therapy; Z98.890 Other specified postprocedural states
CPT/HCPCS: 67113; 82962; C1814; 36416; J0171; J2001; J2250; J2704; J3010

== ENCOUNTER 2018-03-09 14:21 | Outpatient (CLI) | payer MEDICARE, MEDICAID | END 2018-03-09 14:22 | disposition home or self-care (01) | LOC: BICMAMMO 14:21 | PROVIDERS: ATTEND Family Medicine | DX: R92.1 Mammographic calcification found on diagnostic imaging of breast (principal); N63.10 Unspecified lump in the right breast, unspecified quadrant | CPT/HCPCS: 76642; 77065; G0279 ==

== ENCOUNTER 2018-04-16 17:33 | Emergency (ER) | payer MEDICARE, MEDICAID ==
[~2018-04-16 17:33] MED LIST changes: -Cyclopentolate 1% Opth Drop 2 ML BOT FS SCH; -EPINEPHrine 0.3 MG in Ophthalmic Irrigation Solution 500 ML FS SCH; +Iopamidol 370 76% 50 ML VIAL FS ONE; -Phenylephrine 2.5% Ophth Soln 5 ML BOT FS SCH
[2018-04-16 18:32] LABS: #Eosinphils 0.1 thou/uL (0.0-0.7); #Lymphocytes 1.4 thou/uL (1.20-3.40); #Monocytes 0.7 thou/uL (0.11-0.59); #Neutrophils 6.1 thou/uL (1.40-6.50); %Basophils 0.1 % (0.0-1.0); %Eosinophils 1.4 % (0.0-10.0); %Lymphocytes 17.3 % (21.0-51.0); %Monocytes 8.1 % (0.0-10.0); %Neutrophils 73.1 % (42.0-75.0); Hemoglobin 14.1 g/dL (12.0-16.0); Mean Corpuscular HGB CONC 34.5 g/dL (32.0-36.0); Mean Corpuscular Hemoglobin 31.2 pg (27.0-31.0); Mean Corpuscular Volume 90.5 fL (78.0-98.0); Mean Platelet Volume 7.3 fL (7.4-10.4); Platelet Count 202 thou/uL (130-400); RBC Distribution Width 13.1 % (11.5-14.5); White Blood Cell (WBC) Count 8.3 thou/uL (4.8-10.8)
[2018-04-16 18:48] LABS: ALT (SGPT) 10 U/L (8-55); AST (SGOT) 21 U/L (5-34); Albumin 4.1 g/dL (3.5-5.0); Alkaline Phosphatase 150 U/L (40-150); Anion Gap 20 mmol/L (10-20); BUN (Urea Nitrogen) 25 mg/dL (9.8-20.1); Bilirubin, Total 0.5 mg/dL (0.2-1.2); CK (CPK) 149 U/L (29-168); Calc. Creatinine Clearance 0 mL/min (70-130); Calcium 9.3 mg/dL (7.8-10.44); Carbon Dioxide 23 mmol/L (22-29); Chloride 95 mmol/L (98-107); Estimated GFR-MDRD 13; Globulin 4.5 g/dL (2.4-3.5); Glucose 176 mg/dL (70-105); Potassium 3.8 mmol/L (3.5-5.1); Protein, Total 8.6 g/dL (6.0-8.3); Sodium 134 mmol/L (136-145)
--- NOTE | 2018-04-16 18:52 | RAD ---
CHEST ONE VIEW: 04/16/18 COMPARISON: 09/15/17. HISTORY: Pain. FINDINGS: Normal cardiac silhouette. The pulmonary vessels and hilum are normal. No consolidation or mass. No p neumothorax or osseous abnormalities. IMPRESSION: No acute cardiopulmonary process. POS: [facility]
[2018-04-16 19:41] LABS: Bilirubin Negative (Negative); Blood, Urine Negative (Negative); Clarity CLEAR (Clear); Glucose, Urine (Dipstick) 250 mg/dL (Negative); Leukocyte Negative (Negative); Nitrite Negative (Negative); Protein, Urine (Dipstick) 300 mg/dL (Neg-Trace); Specific Gravity, Urine 1.015 (1.002-1.036); Urobilinogen 0.2 mg/dL (0.2-1.0)
[2018-04-16 19:44] LABS: Bacteria/HPF Rare-Few HPF (None Seen); Hyaline Casts/LPF 0-3 HYALINE CAST LPF (0-3 Hyaline); RBC/HPF 0-3 HPF (0-3); Squamous Epithelial 0-3 HPF (0-3)
--- NOTE | 2018-04-16 22:19 | CT ---
ABDOMEN CT WITHOUT CONTRAST PELVIC CT WITHOUT CONTRAST 04/16/18 HISTORY: Abdominal pain. Onset during dialysis. Evaluate for diverticulitis. COMPARISON: None. TECHNIQUE: Abdomen and pelvic CT performed without IV contrast. Enteric contrast was administered. Coronal refor matted images are submitted for interpretation. FINDINGS: ABDOMEN CT: Scar and atelectasis in the lung bases. Normal heart size. No significant pericardial fluid. Limited evaluation of the solid organs due to the lack of IV contrast. Grossly, no solid organ abnor mality. Mildly distended gallbladder without CT evidence of cholecystitis. No gastrohepatic, retrocr ural or periportal lymphadenopathy. Bilaterally, no evidence of obstructive uropathy. Limited evaluation of the alimentary canal by lack of oral contrast. Multiple normal caliber small bob wel loops are noted. Ileocecal junction is unremarkable. Normal caliber appendix. Scattered fecal mat erial in a nondistended, nondilated colon. There is mucosal thickening involving the distal sigmoid c olon and the rectum. Correlate for proctitis. PELVIC CT: No mass, lymphadenopathy, free air of free fluid. The uterus is surgically absent. Unremarkable urina ry bladder. IMPRESSION: 1. Mucosal thickening involving the distal sigmoid colon and rectum. Correlate for proctitis. 2. Normal caliber appendix. 3. No evidence of obstructive uropathy. POS: [facility]
== END 2018-04-17 00:24 | disposition home or self-care (01) ==
LOC: ERS 17:33
DX: R10.9 Unspecified abdominal pain (principal); E11.9 Type 2 diabetes mellitus without complications; E78.5 Hyperlipidemia, unspecified; I10 Essential (primary) hypertension; Z87.891 Personal history of nicotine dependence; Z79.891 Long term (current) use of opiate analgesic; Z79.899 Other long term (current) drug therapy
CPT/HCPCS: 36415; 51701; 71045; 74176; 80053; 81003; 81015; 82550; 83880; 85025; 87077; 87086; 87186; 93005; 94760; 96372; A4353

== ENCOUNTER 2018-05-05 00:30 | Emergency (ER) | payer MEDICARE, MEDICAID ==
[2018-05-05 01:06] LABS: #Basophils 0.1 thou/uL (0.0-0.2); #Eosinphils 0.2 thou/uL (0.0-0.7); #Lymphocytes 1.7 thou/uL (1.20-3.40); #Monocytes 0.7 thou/uL (0.11-0.59); #Neutrophils 6.5 thou/uL (1.40-6.50); %Basophils 0.9 % (0.0-1.0); %Eosinophils 1.7 % (0.0-10.0); %Lymphocytes 18.1 % (21.0-51.0); %Monocytes 7.8 % (0.0-10.0); %Neutrophils 71.5 % (42.0-75.0); Hemoglobin 12.9 g/dL (12.0-16.0); Mean Corpuscular HGB CONC 35.2 g/dL (32.0-36.0); Mean Corpuscular Hemoglobin 31.9 pg (27.0-31.0); Mean Corpuscular Volume 90.5 fL (78.0-98.0); Platelet Count 194 thou/uL (130-400); RBC Distribution Width 12.8 % (11.5-14.5); Red Blood Cell (RBC) Count 4.06 mill/uL (4.20-5.40); White Blood Cell (WBC) Count 9.1 thou/uL (4.8-10.8)
[2018-05-05 01:34] LABS: ALT (SGPT) 10 U/L (8-55); AST (SGOT) 16 U/L (5-34); Albumin 4.2 g/dL (3.5-5.0); Alkaline Phosphatase 142 U/L (40-150); Anion Gap 18 mmol/L (10-20); BUN (Urea Nitrogen) 25 mg/dL (9.8-20.1); Bilirubin, Total 0.4 mg/dL (0.2-1.2); CK (CPK) 141 U/L (29-168); Calc. Creatinine Clearance 0 mL/min (70-130); Calcium 9.4 mg/dL (7.8-10.44); Carbon Dioxide 26 mmol/L (22-29); Chloride 98 mmol/L (98-107); Estimated GFR-MDRD 11; Globulin 4.2 g/dL (2.4-3.5); Glucose 274 mg/dL (70-105); Potassium 4.6 mmol/L (3.5-5.1); Protein, Total 8.4 g/dL (6.0-8.3); Sodium 137 mmol/L (136-145)
[2018-05-05 01:38] LABS: CKMB 2.1 ng/mL (0-6.6); Troponin I 0.014 ng/mL (< 0.028)
[2018-05-05 04:08] LABS: Troponin I 0.017 ng/mL (< 0.028)
[2018-05-05] MEDS ORDERED: Ketorolac Tromethamine 60 MG/2 ML VIAL ONE (04:38)
--- NOTE | 2018-05-05 07:40 | RAD ---
TWO VIEWS OF THE CHEST: COMPARISON: 10/24/17. HISTORY: Chest pain. FINDINGS: Two views of the chest show normal sized cardiomediastinal silhouette. There is no evidence of consol idation, mass, or pleural effusion. Degenerative changes are seen in the spine. IMPRESSION: No evidence of acute cardiopulmonary disease. POS: [facility]
--- NOTE | 2018-05-08 00:38 | EKG ---
Test Reason : Blood Pressure : / mmHG Vent. Rate : 083 BPM Atrial Rate : 083 BPM P-R Int : 198 ms QRS Dur : 106 ms QT Int : 416 ms P-R-T Axes : 042 -56 047 degrees QTc Int : 488 ms Normal sinus rhythm Possible Left atrial enlargement Left axis deviation Left ventricular hypertrophy Anteroseptal infarct , age undetermined Abnormal ECG Confirmed by EDDIE OATES ([id number]), video news editor CAMILLA MUNGUIA ([id number]) on 05/08/2018 12:37:40 AM Referred By: Confirmed By:EDDIE OATES
== END 2018-05-05 05:42 | disposition home or self-care (01) ==
LOC: ERS 00:30
DX: R07.9 Chest pain, unspecified (principal); A60.04 Herpesviral vulvovaginitis; E11.9 Type 2 diabetes mellitus without complications; I10 Essential (primary) hypertension; E78.5 Hyperlipidemia, unspecified; Z87.891 Personal history of nicotine dependence
CPT/HCPCS: 36415; 71046; 80053; 82553; 84484; 85025; 93005; 96372; J1885

== ENCOUNTER 2018-05-10 17:06 | Observation (INO) | payer MEDICARE, MEDICAID ==
[~2018-05-10 17:06] MED LIST changes: +ISOVUE-370 76%-LOCM 1 ML ONE; -Iopamidol 370 76% 50 ML VIAL FS ONE
--- NOTE | 2018-05-10 18:21 | RAD ---
CHEST ONE VIEW: 05/10/18 HISTORY: Chest pain. COMPARISON: Chest radiograph 04/16/18. FINDINGS: The heart size is moderately enlarged. No pneumothorax or effusion. No focal air space consolidation. No acute osseous abnormality. IMPRESSION: No acute intrathoracic abnormality nor significant change from 04/16/18. POS: [facility]
[2018-05-10 18:24] LABS: #Eosinphils 0.1 thou/uL (0.0-0.7); #Lymphocytes 1.9 thou/uL (1.20-3.40); #Monocytes 0.5 thou/uL (0.11-0.59); %Basophils 0.4 % (0.0-1.0); %Eosinophils 1.6 % (0.0-10.0); %Monocytes 6.5 % (0.0-10.0); %Neutrophils 66.5 % (42.0-75.0); Hemoglobin 13.2 g/dL (12.0-16.0); Mean Corpuscular HGB CONC 35.6 g/dL (32.0-36.0); Mean Corpuscular Hemoglobin 31.6 pg (27.0-31.0); Mean Corpuscular Volume 88.9 fL (78.0-98.0); Mean Platelet Volume 7.1 fL (7.4-10.4); Platelet Count 212 thou/uL (130-400); RBC Distribution Width 12.7 % (11.5-14.5); Red Blood Cell (RBC) Count 4.18 mill/uL (4.20-5.40); White Blood Cell (WBC) Count 7.5 thou/uL (4.8-10.8)
[2018-05-10] MEDS ORDERED: Nitroglycerin 2% Ointment 1 INCH/1 GM Packet ONE (18:24)
[2018-05-10 18:45] LABS: ALT (SGPT) 9 U/L (8-55); AST (SGOT) 17 U/L (5-34); Albumin 4.4 g/dL (3.5-5.0); Alkaline Phosphatase 158 U/L (40-150); Anion Gap 21 mmol/L (10-20); BUN (Urea Nitrogen) 29 mg/dL (9.8-20.1); Bilirubin, Total 0.5 mg/dL (0.2-1.2); CK (CPK) 241 U/L (29-168); Calc. Creatinine Clearance 0 mL/min (70-130); Calcium 9.1 mg/dL (7.8-10.44); Carbon Dioxide 25 mmol/L (22-29); Chloride 94 mmol/L (98-107); Estimated GFR-MDRD 11; Globulin 4.5 g/dL (2.4-3.5); Glucose 213 mg/dL (70-105); Potassium 3.7 mmol/L (3.5-5.1); Protein, Total 8.9 g/dL (6.0-8.3); Sodium 136 mmol/L (136-145)
[2018-05-10 18:50] LABS: Troponin I Less than 0.010 ng/mL (< 0.028)
--- NOTE | 2018-05-10 20:22 | CT ---
CT ANGIOGRAM OF THE CHEST 05/10/18 HISTORY: Chest pain and shortness of breath. COMPARISON: 12/10/16. TECHNIQUE: CT angiogram of the chest is performed in the axial plane. Three dimensional reformatted images are s ubmitted for interpretation. FINDINGS: No mediastinal mass, lymphadenopathy, or hematoma. Heart size is within normal limits. No significant pericardial fluid. The thoracic aorta and upper abdominal aorta have an overall normal caliber. No p eriaortic fat stranding. The visualized upper solid organs are unremarkable. Mildly distended gallbladder, nonspecific. No obv ious inflammatory change. trachea and central bronchi are patent. Scar and atelectasis in both lower lobes. No suspicious masses or consolidation. No pleural effusion or pneumothorax. Adequate contrast opacification of the pulmonary arterial system to the level of the segmental arteri es. No filling defect to suggest a thromboembolism. IMPRESSION: No evidence of pulmonary artery embolism to the level of the segmental arteries. POS: [facility]
[2018-05-10] MEDS ORDERED: Dextrose 5% in Water 1,000 ML IV PRN (23:04)
[2018-05-10] MEDS ORDERED: HumaLOG 300 UNITS/3 ML VIAL SC PRN (23:04)
[2018-05-10] MEDS ORDERED: Dextrose 50% Abboject 50 ML SYRINGE SLOW IVP PRN (23:04)
[2018-05-10] MEDS ORDERED: Aspirin 325 MG TAB PO SCH (23:15)
[2018-05-10 23:27] LABS: Troponin I 0.018 ng/mL (< 0.028)
[2018-05-10 23:34] LABS: CKMB 1.7 ng/mL (0-6.6); Troponin I Less than 0.010 ng/mL (< 0.028)
--- NOTE | 2018-05-10 23:34 | CT ---
NONCONTRAST HEAD CT: 05/10/18 HISTORY: Chest pain, shortness of breath, change in vision. COMPARISON: 09/15/17 FINDINGS: No parenchymal hemorrhage. No extra-axial hematoma. No midline shift. Basilar cisterns are patent. Br ain volume, age appropriate. Cortical lozoya-white matter differentiation is preserved. Ventricles and sulci are patent and symmetric. White matter hypodensities which appears to be somewhat more prominent when compared to the prior exa mination. Findings may be due to progression of chronic small vessel ischemic change. However, given patient's history, further evaluation with MRI is recommended. Calvarium is intact. Adequate aeration of the sinuses and mastoid air cells. Hyperdensity associated with the right globe is again noted. IMPRESSION: 1. No acute intracranial process. 2. Progression of white matter hypodensity suggesting progression of chronic small vessel ischem ic change. However, given patient's history, further evaluation with the brain MRI is recommended. POS: [facility]
[2018-05-11 02:17] LABS: Troponin I 0.021 ng/mL (< 0.028)
[2018-05-11 03:32] VITALS: BMI 36.6
[2018-05-11 05:00] LABS: #Eosinphils 0.2 thou/uL (0.0-0.7); #Lymphocytes 1.7 thou/uL (1.20-3.40); #Monocytes 0.5 thou/uL (0.11-0.59); #Neutrophils 4.5 thou/uL (1.40-6.50); %Basophils 0.4 % (0.0-1.0); %Eosinophils 2.8 % (0.0-10.0); %Lymphocytes 24.1 % (21.0-51.0); %Monocytes 6.5 % (0.0-10.0); %Neutrophils 66.2 % (42.0-75.0); Hemoglobin 11.9 g/dL (12.0-16.0); Mean Corpuscular HGB CONC 35.1 g/dL (32.0-36.0); Mean Corpuscular Hemoglobin 31.6 pg (27.0-31.0); Mean Corpuscular Volume 89.9 fL (78.0-98.0); Mean Platelet Volume 7.2 fL (7.4-10.4); Platelet Count 181 thou/uL (130-400); RBC Distribution Width 12.7 % (11.5-14.5); Red Blood Cell (RBC) Count 3.76 mill/uL (4.20-5.40); White Blood Cell (WBC) Count 6.8 thou/uL (4.8-10.8)
[2018-05-11 05:10] LABS: Anion Gap 18 mmol/L (10-20); BUN (Urea Nitrogen) 40 mg/dL (9.8-20.1); Calc. Creatinine Clearance 14 mL/min (70-130); Calcium 8.5 mg/dL (7.8-10.44); Carbon Dioxide 28 mmol/L (22-29); Cardiac Risk 6.2 (Less than 4.5); Chloride 95 mmol/L (98-107); Cholesterol 199 mg/dl (< 200 Desired); Estimated GFR-MDRD 9; Glucose 226 mg/dL (70-105); HDL Cholesterol 32 mg/dL (>60 Neg Risk); LDL Cholesterol, Calculated 108 mg/dL; Potassium 4.1 mmol/L (3.5-5.1); Sodium 137 mmol/L (136-145); Triglycerides 295 mg/dL (Less than 150)
[2018-05-11 05:15] LABS: CKMB 1.3 ng/mL (0-6.6); Troponin I 0.014 ng/mL (< 0.028)
--- NOTE | 2018-05-11 06:35 | HP ---
CHIEF COMPLAINT: Chest pain and shortness of breath. HISTORY OF PRESENT ILLNESS: The patient is a 57-year-old female with history of end-stage renal dise ase on dialysis, diastolic heart failure, hypertension, type 2 diabetes who presented to the ER with complaints of chest pain and shortness of breath. The patient stated that she was at dialysis today when she started having some chest pain followed by some shortness of breath. The patient at that ti ks was transferred to the ER for further evaluation. The patient denies any nausea or vomiting. She does have some relief from the chest pain after applying the nitro paste. The patient denies any fe vers or chills, any nausea, vomiting or diarrhea. PAST MEDICAL HISTORY: End-stage renal disease, diastolic heart failure, hypertension, type 2 diabete s, obesity. PAST SURGICAL HISTORY: She has had a , hysterectomy, AV fistula in her left upper extremity , right IJ hemodialysis catheter. She has also had a vitrectomy of the right eye. ALLERGIES: She has had no known drug allergies. FAMILY HISTORY: No history of heart disease or diabetes. REVIEW OF SYSTEMS: All negative except for the ones mentioned above in HPI. PHYSICAL EXAMINATION: VITAL SIGNS: Temperature of 98.0, pulse 65, respiratory rate 12, 94% on room air, blood pressure 128 /60. GENERAL: She is awake, alert, and oriented x3, does not appear in any distress. The patient appears more older than her stated age. CARDIOVASCULAR: S1, S2 present. No murmurs, rubs or gallops. ABDOMEN: Soft, nontender. Bowel sounds present x2. EXTREMITIES: No edema. Pedal pulses present x2. LUNGS: Clear to auscultation, rhonchi or wheezes noted. NEUROLOGIC: No focal deficits noted. SKIN: No lesions noted. EXTREMITIES: She does have a graft in her left upper extremity which has good bruit and thrill. LABORATORY DATA: Laboratory results are as the following, patient's troponin x3 were negative. Sodi um of 132, potassium of 3.7, BUN of 29, creatinine of 4.0, glucose of 213. Alkaline phosphatase mild ly elevated at 158. BNP at 559. Her lipase was mildly elevated at 201. Hematology: WBCs of 7.5, h emoglobin of 13.2, hematocrit of 37.2, platelets of 212. The patient had a CTA of her chest for her positive D-dimer, which indicated no acute PE that was noted. ASSESSMENT AND PLAN: The patient is a 57-year-old female who presents to the hospital with chest kevin n and shortness of breath. 1. Atypical chest pain. The patient's pain is reproducible on her left sternal area; however, she s tates that her pain earlier was a pressure-like sensation that did not have any radiation to her left or right upper extremity. At this time, given the patient's risk factors, diabetes, obesity, end-st age renal disease on dialysis; however, her troponins are normal. EKG, no significant changes. We w ill do a stress test in the morning. Her last echocardiogram was in 2017, which indicated an EF of 6 0%-65%. We will continue to monitor. 2. End-stage renal disease on dialysis. We will consult Nephrology for dialysis. She had dialysis today; however, she did have contrast. 3. Diastolic heart failure. The patient's BNP was mildly elevated now this most likely is abnormal given her history of end-stage renal disease. She currently does not have any shortness of breath wh en I was examining her. We will continue to monitor. Of note, the patient's daughter stated that fo r the past several months she has been having some vision issues. We will check a CT of the head to make sure no strokes have occurred; however, she did have surgery. She had vitrectomy recently and gloria mccainmauri's family does not recall if she is followed up with her PCP or ophthalmology for eye exam give n her history of diabetes. 4. Deep venous thrombosis prophylaxis. We will put the patient on subcu heparin.
[2018-05-11] MEDS ORDERED: Aspirin 325 MG TAB PO SCH (08:00)
[2018-05-11 08:10] VITALS: TEMP 98
[2018-05-11 08:12] LABS: CKMB 1.9 ng/mL (0-6.6); Troponin I Less than 0.010 ng/mL (< 0.028)
[2018-05-11] MEDS: Sevelamer Carbonate 800 MG TAB PO SCH ×2 (08:19→13:31)
[2018-05-11] MEDS ORDERED: Non-Formulary Item 1 EACH (Insulin Detemir 100 Units/Ml [Levemir] 10 UNIT) SQ SCH (09:00)
[2018-05-11] MEDS ORDERED: Amlodipine 10 MG TAB PO SCH (09:00)
[2018-05-11] MEDS ORDERED: Lisinopril 2.5 MG TAB PO SCH (09:00)
[2018-05-11] MEDS ORDERED: Insulin Glargine 10 UNITS in Pre-Filled Syringe 1 EACH SC SCH (09:00)
[2018-05-11] MEDS ORDERED: cloNIDine 0.1 MG TAB PO SCH (09:00)
[2018-05-11] MEDS ORDERED: ADENOSINE 60 MG/20 ML VIAL ONE (10:06)
--- NOTE | 2018-05-11 11:22 | CON ---
DATE OF CONSULTATION: 05/11/2018 RENAL MEDICINE HISTORY OF PRESENT ILLNESS: Ms. Saldivar is a 57-year-old female with ESRD - on maintenance h emodialysis and admitted for chest pain and being ruled out for myocardial infarction. She developed chest pain with some mild shortness of breath during dialysis. For that reason, dialysis was interr upted. She was sent to the ER. She is now admitted for rule out UT. In addition, a cardiac stress test has been scheduled. We are being consulted for her maintenance hemodialysis. This morning, malika dotson is feeling better. She has only a mild chest pain. Denies any associated shortness of breath. REVIEW OF SYSTEMS: Positive for chest pain and shortness of breath, occasional nausea, but no vomiti ng, no diarrhea, no constipation, no abdominal pain, no syncopal episode, no productive cough, no fev er or chills, no headache, no gross hematuria, no dysuria, no urinary frequency. Appetite and energy level is fair. No diplopia, no sore throat. Occasional joint pains, no new skin rash. MEDICATIONS: Patient is currently on Norvasc 10 mg daily, aspirin 325 mg daily, Lipitor 40 mg at bed time, Catapres 0.1 mg p.o. b.i.d., insulin Glargine 10 units subcutaneously q.a.m., Humalog sliding s omega, lisinopril 2.5 mg once a day, Renvela 800 mg 1 tab t.i.d. with meals. PAST MEDICAL HISTORY: 1. ESRD from diabetic nephropathy. 2. Hypertension. 3. History of type 2 diabetes mellitus. 4. History of congestive heart failure. 5. ? of coronary artery disease. 6. Hyperlipidemia. 7. Diabetic neuropathy. 8. Hypothyroidism. PAST SURGICAL HISTORY: 1. Status post hysterectomy. 2. Status post cuffed hemodialysis catheter placement. 3. Status post AV fistula placement. SOCIAL HISTORY: The patient is , 4 children. Lives in [place] with her . Currently, no smoking, no IV drug abuse. No alcohol. Sedentary lifestyle. ALLERGIES: None. TRAUMA: None. IMMUNIZATIONS: Up to date. HOSPITALIZATIONS: Please see past medical history. FAMILY HISTORY: No family history of ESRD. PHYSICAL EXAMINATION: VITAL SIGNS: Blood pressure is noted at 191/85 - before BP meds, heart rate 72, respiratory rate 20, temperature 98, pulse ox 100%. GENERAL: Awake, supine, comfortable, not in overt distress. SKIN: Adequate turgor. HEENT: Pinkish conjunctivae, anicteric sclerae. NECK: No neck mass, no carotid bruits, no JVD. CHEST: No deformities. LUNGS: Clear breath sounds, no wheezing, no crackles. HEART: Normal sinus rhythm. No murmur, no gallops, no rubs. ABDOMEN: Globular, soft, nontender. No masses. EXTREMITIES: No edema, no deformities. LABORATORY DATA: Laboratories of 05/11/2018; white count 6.8, hemoglobin 11.9. Sodium 134, potassiu m 4.1, chloride 95, carbon dioxide 28, BUN 40, creatinine 5.18, glucose 226, calcium 8.5, troponin I is less than 0.010. Cholesterol is 199. Lipase 201. IMAGING DATA: 1. On 05/10/2018, chest x-ray shows no CHF, no infiltrates. 2. CT of the chest on 05/10/2018, no pulmonary embolism. ASSESSMENT AND PLAN: 1. Chest pain - patient ruled out for UT. Patient is scheduled for cardiac stress test. Continue s upportive care. 2. End-stage renal disease, stable. There is no indication for any emergent hemodialysis. I review ed her labs and we can wait until tomorrow. We will plan to continue her current Wednesday, , and Wednesday dialysis regimen. Review of the last Kt/V suggests she is adequately dialyzed with the current dialysis regimen. Overall, agree with current management.
--- NOTE | 2018-05-11 13:23 | NM ---
STRESS MYOCARDIAL PERFUSION SCAN WITH EJECTION FRACTION: HISTORY: Chest pain. TECHNIQUE/FINDINGS: Examination is performed using 28.5 mCi 99m-technetium sestamibi. This shows a fairly normal distribu tion of radiopharmaceutical. No signs of ischemia or scar. WALL MOTION: Symmetric contractility to the ventricle is noted. LEFT VENTRICULAR EJECTION FRACTION: The calculated left ventricular ejection fraction is 55%. IMPRESSION: Unremarkable stress myocardial scan. POS: [facility]
[2018-05-11 15:29] VITALS: BP 167/72
[2018-05-11] MEDS ORDERED: Atorvastatin Calcium 40 MG TAB PO SCH (21:00)
--- NOTE | 2018-05-12 02:03 | DIS ---
DATE OF ADMISSION: 05/10/2018 DATE OF DISCHARGE: 05/11/2018 PRIMARY CARE PHYSICIAN: [facility]. DISCHARGE DISPOSITION: Home. PRIMARY DISCHARGE DIAGNOSES: 1. Chest pain, probable noncardiac, suspect musculoskeletal in origin. 2. End-stage renal disease on hemodialysis. 3. Diastolic heart failure. 4. Hypertension. 5. Diabetes mellitus, type 2. 6. Obesity. DISCHARGE MEDICATIONS: Same as that on admission and include valacyclovir 1000 mg twice daily, Ultram 50 mg 1-2 q.i.d., Renvela 800 mg t.i.d., Lopressor 100 mg twice a day, lisinopril 2.5 mg daily, Levemir 20 units subcutaneous daily, clonidine 0.1 mg twice daily, atorvastatin 40 mg at bedtime, aspirin 81 mg daily , Norvasc 10 mg a day. PROCEDURES DONE DURING ADMISSION: The patient had a CT angiogram of the chest in which there was no evidence of pulmonary embolism to the level of the segmental arteries. The patient also had a CT scan of the brain showing no acute intracranial process. There was some progression of white-matter hypodensity suggesting progression of chronic small vessel ischemic change. The patient had a nuclear stress test, which was negative for any reversible ischemia. CODE STATUS: FULL CODE. ALLERGIES: No known drug allergies. Physical Exam: The patient was seen and examined on the day of discharge. She had some mild chest discomfort primarily in the left upper chest radiating to her left shoulder. It was reproducible on exam to palpation. Heart sounds were normal, except for a mild 2/6 systolic murmur, and lung sounds were clear. No pedal edema. HOSPITAL COURSE: Ms. Saldivar is a pleasant 57-year-old female that has a history of end-stage renal disease and diastolic heart failure, who presented to the emergency room complaining of chest pain. She was placed in observation and ruled out and had a CT angiogram done which was negative for PE. She also had a nuclear stress test, which was negative for reversible ischemia. On further evaluation, it appears as of the pain is primarily when she moves or lifts her arm and it was reproducible on exam. She had also recently had an AV fistula placed in the left arm, just 6 months ago and I suspect that some of the pain could be related to the recent AV fistula placement and a musculoskeletal strain. The patient was instructed that if the symptoms continue; however, she could see a food dehydrator operator due to the potential for a false negative stress test and also that the pain could be related to a musculoskeletal strain, which seemed more clinically apparent. ELIN
--- NOTE | 2018-05-14 11:29 | EKG ---
Test Reason : Blood Pressure : / mmHG Vent. Rate : 082 BPM Atrial Rate : 082 BPM P-R Int : 190 ms QRS Dur : 104 ms QT Int : 432 ms P-R-T Axes : 057 -59 057 degrees QTc Int : 504 ms Normal sinus rhythm Possible Left atrial enlargement Left axis deviation Incomplete right bundle branch block Left ventricular hypertrophy Cannot rule out Septal infarct , age undetermined Prolonged QT Abnormal ECG Confirmed by NEGRITA MURILLO DO ([id number]), state editor KENYETTA ROWAN ([id number]) on 05/14/2018 11:29:31 AM Referred By: ER Confirmed By:NEGRITA MURILLO DO
== END 2018-05-11 15:57 | disposition home or self-care (01) ==
LOC: ERS 17:06 → 2SW 21:29
PROVIDERS: ADMIT Internal Medicine; ATTEND Internal Medicine
DX: R07.89 Other chest pain (principal); I13.2 Hypertensive heart and chronic kidney disease with heart failure and with stage 5 chronic kidney disease, or end stage renal disease; E11.21 Type 2 diabetes mellitus with diabetic nephropathy; E11.22 Type 2 diabetes mellitus with diabetic chronic kidney disease; N18.6 End stage renal disease; E11.40 Type 2 diabetes mellitus with diabetic neuropathy, unspecified; I50.30 Unspecified diastolic (congestive) heart failure; E66.9 Obesity, unspecified; E03.9 Hypothyroidism, unspecified; Z68.36 Body mass index [BMI] 36.0-36.9, adult; Z79.82 Long term (current) use of aspirin; Z79.4 Long term (current) use of insulin; Z79.899 Other long term (current) drug therapy; Z99.2 Dependence on renal dialysis
CPT/HCPCS: 70450; 71045; 71275; 78452; 80048; 80053; 80061; 82550; 82553 ×4; 82962; 83690; 83880; 84484 ×4; 85025 ×2; 87040; 93005; 93017; 99285; A9500; G0378; 36415; 36416; J0153

== ENCOUNTER 2018-05-26 09:44 | Day surgery (SDC) | payer MEDICARE, MEDICAID ==
[2018-05-25 10:49] VITALS: BMI 27.4
[~2018-05-26 09:44] MED LIST changes: +Cyclopentolate 1% Opth Drop 2 ML BOT FS SCH; +Fluorouracil 100 MG, EPINEPHrine 0.3 MG, Dextrose 50% 3 ML in Ophthalmic Irrigation Sol... IVPB SCH; -ISOVUE-370 76%-LOCM 1 ML ONE; +Phenylephrine 2.5% Ophth Soln 5 ML BOT FS SCH
[2018-05-26] MEDS ORDERED: Midazolam HCl 2 mg/2 ml Vial ONE (10:08)
[2018-05-26] MEDS ORDERED: Fentanyl 100 MCG/2 ML VIAL ONE (10:08)
[2018-05-26] MEDS ORDERED: Cyclopentolate 1% Opth Drop 2 ML BOT ONE (10:12)
[2018-05-26] MEDS ORDERED: Phenylephrine 2.5% Ophth Soln 5 ML BOT ONE (10:12)
[2018-05-26] MEDS ORDERED: Insulin Regular 300 UNITS/3 ML VIAL ONE (10:50)
--- NOTE | 2018-05-26 13:28 | OP ---
DATE OF SURGERY: 05/26/2018 PREOPERATIVE DIAGNOSIS: Tractional retinal detachment, right eye. POSTOPERATIVE DIAGNOSIS: Tractional retinal detachment, right eye. PROCEDURE: Pars plana vitrectomy, tractional retinal detachment repair, right eye. SURGEON: Grey Lugo M.D. ANESTHESIA: Local with monitored anesthesia care. PROCEDURE IN DETAIL: The patient was identified in the preoperative holding area. Appropriate conse nt for the planned surgical procedure on the right eye had been obtained. The patient was transporte d to the operative suite where appropriate cardiopulmonary monitoring established. Local anesthesia was obtained using retrobulbar and modified Van Lint lid block using 50:50 mixture of 4% lidocaine an d 0.75% bupivacaine. The patient was prepped and draped in the usual sterile manner for ophthalmic s urgery on the right eye. Lid speculum was placed in the right eye. The 25-gauge trocars were placed in conjunctiva and sclera supratemporally, inferotemporally, and supranasally. Infusion line was pl aced inferotemporally. A 20-gauge sclerotomy was created superiorly and silicone oil was removed. E xtensive membranes were removed from the retinal surface and 360 retinotomy was created posteriorly. Complete air fluid exchange was performed with 10 minutes being allowed for fluid to drain posterior ly. Hemostasis was achieved using endocautery. Silicone oil was infused in the eye. Sclerotomy was suture closed with 7-0 Vicryl suture. Conjunctiva was closed with 6-0 plain gut suture. Retrobulba r Kenalog and subconjunctival Ancef were placed. Atropine and antibiotic ointment placed, and the ey e was patched and shielded. The patient was taken to the postoperative recovery unit in good conditi on having suffered no immediate perioperative complications. DISCHARGE INSTRUCTIONS: The patient was instructed to keep patch and shield on, avoid lifting or pam ding, and follow up in the morning with Dr. Lugo.
[2018-05-26] MEDS ORDERED: Lidocaine 1% PF 5 ML VIAL ONE (14:53)
[2018-05-26] MEDS ORDERED: Triamcinolone 40 MG/ML VIAL ONE (14:53)
[2018-05-26] MEDS ORDERED: CEFAZOLIN 1 GM VIAL ONE (14:53)
[2018-05-26] MEDS ORDERED: Bupivacaine 0.75% 10 ML AMP ONE (14:53)
[2018-05-26] MEDS ORDERED: PROPOFOL 200 MG/20 ML VIAL ONE (14:53)
[2018-05-26] MEDS ORDERED: Lidocaine 4% PF 5 ML AMP ONE (14:53)
[2018-05-26] MEDS ORDERED: Maxitrol 0.1% Opth Oint 3.5 GM TUBE ONE (14:53)
== END 2018-05-26 15:48 | disposition home or self-care (01) ==
LOC: SDC 09:44
PROVIDERS: ATTEND Ophthalmology Retina Specialist
PROC: 08T43ZZ Resection of Right Vitreous, Percutaneous Approach (ICD-10-PCS; principal; 2018-05-26)
PROC: 08NE3ZZ Release Right Retina, Percutaneous Approach (ICD-10-PCS; 2018-05-26)
DX: H33.41 Traction detachment of retina, right eye (principal); E11.9 Type 2 diabetes mellitus without complications; Z79.899 Other long term (current) drug therapy
CPT/HCPCS: 36416; J0171; J0690; J1815; J2001; J2250; J2704; J3010; J3301; J3490; J9190

== ENCOUNTER 2018-08-11 09:39 | Emergency (ER) | payer MEDICARE, MEDICAID ==
[2018-08-11 10:19] LABS: #Basophils 0.1 thou/uL (0.0-0.2); #Eosinphils 0.2 thou/uL (0.0-0.7); #Lymphocytes 1.3 thou/uL (1.20-3.40); #Monocytes 0.5 thou/uL (0.11-0.59); #Neutrophils 4.8 thou/uL (1.40-6.50); %Basophils 0.9 % (0.0-1.0); %Eosinophils 2.5 % (0.0-10.0); %Monocytes 7.1 % (0.0-10.0); %Neutrophils 70.5 % (42.0-75.0); Hemoglobin 11.4 g/dL (12.0-16.0); Mean Corpuscular HGB CONC 31.4 g/dL (32.0-36.0); Mean Corpuscular Hemoglobin 30.1 pg (27.0-31.0); Mean Corpuscular Volume 95.9 fL (78.0-98.0); Mean Platelet Volume 7.2 fL (7.4-10.4); Platelet Count 280 thou/uL (130-400); RBC Distribution Width 14.2 % (11.5-14.5); Red Blood Cell (RBC) Count 3.79 mill/uL (4.20-5.40); White Blood Cell (WBC) Count 6.7 thou/uL (4.8-10.8)
[2018-08-11 10:35] LABS: ALT (SGPT) 10 U/L (8-55); AST (SGOT) 14 U/L (5-34); Albumin 4.2 g/dL (3.5-5.0); Alkaline Phosphatase 152 U/L (40-150); Anion Gap 18 mmol/L (10-20); BUN (Urea Nitrogen) 57 mg/dL (9.8-20.1); Bilirubin, Total 0.4 mg/dL (0.2-1.2); CK (CPK) 129 U/L (29-168); Calc. Creatinine Clearance 0 mL/min (70-130); Calcium 8.8 mg/dL (7.8-10.44); Carbon Dioxide 26 mmol/L (22-29); Chloride 98 mmol/L (98-107); Estimated GFR-MDRD 7; Globulin 4.1 g/dL (2.4-3.5); Glucose 299 mg/dL (70-105); Phosphorus 4.7 mg/dL (2.3-4.7); Potassium 5.1 mmol/L (3.5-5.1); Protein, Total 8.3 g/dL (6.0-8.3); Sodium 137 mmol/L (136-145)
[2018-08-11 10:37] LABS: CKMB 2.3 ng/mL (0-6.6); Troponin I Less than 0.010 ng/mL (< 0.028)
[2018-08-11] MEDS ORDERED: Furosemide 40 MG/4 ML VIAL ONE (10:47)
[2018-08-11] MEDS ORDERED: Nitroglycerin 2% Ointment 1 INCH/1 GM Packet ONE (10:47)
--- NOTE | 2018-08-11 11:05 | RAD ---
PORTABLE UPRIGHT FRONTAL CHEST RADIOGRAPH: Date: 08/11/18 COMPARISON: 05/10/18. HISTORY: Dyspnea. FINDINGS: Cardiac silhouette is prominent. There is new pulmonary vascular congestion with new interstitial [place] in the perihilar regions. No pneumothorax noted. No large volume pleural effusion or focal conso lidation. IMPRESSION: Pulmonary vascular congestion and perihilar interstitial prominence suggests interval development of interstitial edema. Follow-up imaging following treatment to document resolution advised. POS: [facility]
== END 2018-08-11 11:43 | disposition home or self-care (01) ==
LOC: ERS 09:39
DX: I11.0 Hypertensive heart disease with heart failure (principal); I50.9 Heart failure, unspecified; E11.9 Type 2 diabetes mellitus without complications; E78.5 Hyperlipidemia, unspecified; Z79.899 Other long term (current) drug therapy; Z79.82 Long term (current) use of aspirin; Z79.4 Long term (current) use of insulin
CPT/HCPCS: 71045; 80053; 82550; 82553; 83735; 83880; 84100; 84484; 85025; 93005; 94760; 96374; J1940

== ENCOUNTER 2018-08-12 18:48 | Emergency (ER) | payer MEDICARE, MEDICAID ==
[~2018-08-12 18:48] MED LIST changes: -Cyclopentolate 1% Opth Drop 2 ML BOT FS SCH; -Fluorouracil 100 MG, EPINEPHrine 0.3 MG, Dextrose 50% 3 ML in Ophthalmic Irrigation Sol... IVPB SCH; +ISOVUE-370 76%-LOCM 1 ML ONE; -Phenylephrine 2.5% Ophth Soln 5 ML BOT FS SCH
[2018-08-12 19:53] LABS: #Basophils 0.1 thou/uL (0.0-0.2); #Eosinphils 0.2 thou/uL (0.0-0.7); #Lymphocytes 1.8 thou/uL (1.20-3.40); #Monocytes 0.7 thou/uL (0.11-0.59); %Basophils 0.9 % (0.0-1.0); %Eosinophils 1.9 % (0.0-10.0); %Lymphocytes 18.3 % (21.0-51.0); %Monocytes 7.1 % (0.0-10.0); %Neutrophils 71.8 % (42.0-75.0); Hemoglobin 13.1 g/dL (12.0-16.0); Mean Corpuscular HGB CONC 32.9 g/dL (32.0-36.0); Mean Corpuscular Hemoglobin 31.1 pg (27.0-31.0); Mean Corpuscular Volume 94.6 fL (78.0-98.0); Mean Platelet Volume 6.9 fL (7.4-10.4); Platelet Count 337 thou/uL (130-400); RBC Distribution Width 14.2 % (11.5-14.5); Red Blood Cell (RBC) Count 4.21 mill/uL (4.20-5.40); White Blood Cell (WBC) Count 9.7 thou/uL (4.8-10.8)
[2018-08-12 20:11] LABS: Bilirubin Negative (Negative); Blood, Urine Negative (Negative); Clarity CLEAR (Clear); Glucose, Urine (Dipstick) 500 mg/dL (Negative); Leukocyte Negative (Negative); Nitrite Negative (Negative); Protein, Urine (Dipstick) > or equal to 300 mg/dL (Neg-Trace); Specific Gravity, Urine 1.018 (1.002-1.036); Urobilinogen 0.2 mg/dL (0.2-1.0)
[2018-08-12 20:13] LABS: ALT (SGPT) 11 U/L (8-55); AST (SGOT) 17 U/L (5-34); Albumin 4.5 g/dL (3.5-5.0); Alkaline Phosphatase 165 U/L (40-150); Anion Gap 21 mmol/L (10-20); BUN (Urea Nitrogen) 82 mg/dL (9.8-20.1); Bilirubin, Total 0.4 mg/dL (0.2-1.2); Calc. Creatinine Clearance 0 mL/min (70-130); Calcium 8.9 mg/dL (7.8-10.44); Carbon Dioxide 24 mmol/L (22-29); Chloride 98 mmol/L (98-107); Estimated GFR-MDRD 6; Globulin 4.5 g/dL (2.4-3.5); Glucose 338 mg/dL (70-105); Lipase 159 U/L (8-78); Potassium 5.1 mmol/L (3.5-5.1); Sodium 138 mmol/L (136-145)
[2018-08-12 20:13] LABS: Bacteria/HPF 1+ HPF (None Seen); Hyaline Casts/LPF 0-3 HYALINE CAST LPF (0-3 Hyaline); Pathc Cast-AUWi Flag 0.43 (0-2.49); WBC/HPF 0-3 HPF (0-3)
[2018-08-12 20:15] LABS: RBC/HPF None Seen HPF (0-3)
[2018-08-12 20:17] LABS: CKMB 3.3 ng/mL (0-6.6); Troponin I Less than 0.010 ng/mL (< 0.028)
--- NOTE | 2018-08-12 21:43 | CT ---
CT ABDOMEN AND PELVIS WITH IV CONTRAST: 08/12/18 Mild linear scarring at the left lung base. Small calcification in nondilated calyces of each kidney are similar in appearance to the previous exam from 04/16/18. Retroaortic left renal vein. Gallbladder is somewhat distended at 10.6 cm. No free air or free fluid. No evidence of bowel obstruction. Urinary bladder is decompressed. IMPRESSION: Small nonobstructing bilateral renal calculi, stable. Gallbladder distention without other findings of obstruction or inflammation. Clinical correlation re garding Tim's sign for acute cholecystitis is required. POS: [facility]
[2018-08-12] MEDS ORDERED: traMADol HCl 50 MG TAB ONE (22:06)
== END 2018-08-12 22:11 | disposition home or self-care (01) ==
LOC: ERS 18:48
DX: R10.9 Unspecified abdominal pain (principal); R59.0 Localized enlarged lymph nodes; E11.9 Type 2 diabetes mellitus without complications; I10 Essential (primary) hypertension; Z79.4 Long term (current) use of insulin; Z79.899 Other long term (current) drug therapy; Z79.82 Long term (current) use of aspirin
CPT/HCPCS: 36415; 74177; 80053; 81003; 81015; 82553; 83690; 84484; 85025; 93005

== ENCOUNTER 2018-09-27 20:21 | Inpatient (IN) | payer MEDICARE, MEDICAID ==
[2018-09-27 21:07] LABS: #Eosinphils 0.1 thou/uL (0.0-0.7); #Lymphocytes 0.8 thou/uL (1.20-3.40); #Monocytes 0.5 thou/uL (0.11-0.59); %Basophils 0.2 % (0.0-1.0); %Lymphocytes 11.8 % (21.0-51.0); %Monocytes 7.7 % (0.0-10.0); %Neutrophils 78.2 % (42.0-75.0); Hemoglobin 12.5 g/dL (12.0-16.0); Mean Corpuscular HGB CONC 34.6 g/dL (32.0-36.0); Mean Corpuscular Hemoglobin 31.5 pg (27.0-31.0); Mean Platelet Volume 8.1 fL (7.4-10.4); Platelet Count 171 thou/uL (130-400); RBC Distribution Width 13.2 % (11.5-14.5); Red Blood Cell (RBC) Count 3.98 mill/uL (4.20-5.40); White Blood Cell (WBC) Count 6.4 thou/uL (4.8-10.8)
[2018-09-27 21:26] LABS: ALT (SGPT) 10 U/L (8-55); AST (SGOT) 18 U/L (5-34); Albumin 3.8 g/dL (3.5-5.0); Alkaline Phosphatase 145 U/L (40-150); Anion Gap 22 mmol/L (10-20); BUN (Urea Nitrogen) 45 mg/dL (9.8-20.1); Bilirubin, Total 0.3 mg/dL (0.2-1.2); CK (CPK) 156 U/L (29-168); Calc. Creatinine Clearance 0 mL/min (70-130); Calcium 8.7 mg/dL (7.8-10.44); Carbon Dioxide 23 mmol/L (22-29); Chloride 93 mmol/L (98-107); Estimated GFR-MDRD 9; Globulin 4.8 g/dL (2.4-3.5); Glucose 386 mg/dL (70-105); Potassium 3.9 mmol/L (3.5-5.1); Protein, Total 8.6 g/dL (6.0-8.3); Sodium 134 mmol/L (136-145)
[2018-09-27] MEDS ORDERED: Azithromycin 500 MG VIAL ONE (21:28)
[2018-09-27] MEDS ORDERED: cefTRIAXone\\ROCEPHIN 1 GM VIAL ONE (21:28)
--- NOTE | 2018-09-27 21:31 | RAD ---
,PORTABLE CHEST ONE VIEW: 09/27/18 HISTORY: 57-year-old female with history of chest pain following dialysis. Fever, coughing. Heart size is within normal limits. There is some bilateral vascular congestion overall somewhat impr mildred from the 08/11/18 study. There is however, a new small confluent parenchymal process in the righ t upper lobe which certainly could represent a small patch of acute pneumonia. No significant pleural effusion. IMPRESSION: Mild vascular congestion, overall, slightly improved from the prior study. New patch of alveolar pare nchymal density in the right upper lobe evidence for right upper lobe pneumonia. Continued short term followup. POS: [facility]
[2018-09-27 21:47] LABS: CKMB 1.7 ng/mL (0-6.6)
[2018-09-28 00:35] VITALS: BMI 32.7
[2018-09-28] MEDS ORDERED: hydrALAZINE 20 MG/ML VIAL SLOW IVP PRN ×2 (00:45→01:08)
[2018-09-28] MEDS ORDERED: Senokot S 8.6-50 MG TAB PO PRN (00:46)
[2018-09-28] MEDS ORDERED: Bisacodyl 5 MG TAB PO PRN (00:46)
[2018-09-28] MEDS ORDERED: Acetaminophen 325 MG TAB PO PRN ×2 (00:46→00:49)
[2018-09-28] MEDS ORDERED: Zolpidem Tartrate 5 MG TAB PO PRN (00:46)
[2018-09-28] MEDS ORDERED: Nitroglycerin 0.4 MG TAB (25 Tab Bottle) PO PRN (00:46)
[2018-09-28] MEDS ORDERED: Ondansetron ODT 4 MG TAB PO PRN (00:46)
[2018-09-28] MEDS ORDERED: Ondansetron PF 4 MG/2 ML Vial IVP PRN (00:49)
[2018-09-28] MEDS ORDERED: Ondansetron ODT 4 MG TAB SL PRN (00:49)
[2018-09-28 01:21] LABS: Troponin I 0.019 ng/mL (< 0.028)
[2018-09-28] MEDS: Guaifenesin DM 100-10/5 ML UDCUP PO PRN (01:42)
[2018-09-28] MEDS ORDERED: Dextrose 5% in Water 1,000 ML IV PRN (03:52)
[2018-09-28] MEDS ORDERED: Dextrose 50% Abboject 50 ML SYRINGE SLOW IVP PRN (03:52)
[2018-09-28 03:53] LABS: #Eosinphils 0.1 thou/uL (0.0-0.7); #Lymphocytes 0.6 thou/uL (1.20-3.40); #Monocytes 0.5 thou/uL (0.11-0.59); #Neutrophils 5.4 thou/uL (1.40-6.50); %Basophils 0.1 % (0.0-1.0); %Eosinophils 1.2 % (0.0-10.0); %Lymphocytes 9.3 % (21.0-51.0); %Monocytes 6.9 % (0.0-10.0); %Neutrophils 82.5 % (42.0-75.0); Hemoglobin 11.1 g/dL (12.0-16.0); Mean Corpuscular HGB CONC 34.6 g/dL (32.0-36.0); Mean Corpuscular Hemoglobin 31.4 pg (27.0-31.0); Mean Corpuscular Volume 90.7 fL (78.0-98.0); Mean Platelet Volume 8.1 fL (7.4-10.4); Platelet Count 138 thou/uL (130-400); RBC Distribution Width 13.1 % (11.5-14.5); Red Blood Cell (RBC) Count 3.53 mill/uL (4.20-5.40); White Blood Cell (WBC) Count 6.6 thou/uL (4.8-10.8)
[2018-09-28 04:08] LABS: Anion Gap 17 mmol/L (10-20); BUN (Urea Nitrogen) 51 mg/dL (9.8-20.1); Calc. Creatinine Clearance 13 mL/min (70-130); Calcium 8.1 mg/dL (7.8-10.44); Carbon Dioxide 26 mmol/L (22-29); Chloride 95 mmol/L (98-107); Estimated GFR-MDRD 8; Glucose 360 mg/dL (70-105); Potassium 4.1 mmol/L (3.5-5.1); Sodium 134 mmol/L (136-145)
[2018-09-28 04:11] LABS: Troponin I 0.017 ng/mL (< 0.028)
[2018-09-28] MEDS: HumaLOG 300 UNITS/3 ML VIAL SC PRN (06:16)
[2018-09-28] MEDS: Nitroglycerin 2% Ointment 1 INCH/1 GM Packet TOP SCH ×2 (06:17→13:57)
[2018-09-28] MEDS ORDERED: VANC IVPB PRN (08:21)
[2018-09-28] MEDS ORDERED: ZOSYN IVPB PRN (08:21)
[2018-09-28] MEDS: Amlodipine 10 MG TAB PO SCH (08:24)
[2018-09-28] MEDS: Aspirin 81 mg Enteric Coated Tablet PO SCH (08:24)
[2018-09-28] MEDS: Sevelamer Carbonate 800 MG TAB PO SCH ×3 (08:24→18:02)
[2018-09-28] MEDS: Heparin 5,000 UNITS/ML VIAL SC SCH ×2 (08:25→21:56)
[2018-09-28] MEDS: Lisinopril 10 MG TAB PO SCH (08:25)
[2018-09-28] MEDS: cloNIDine 0.1 MG TAB PO SCH ×2 (08:25→21:52)
[2018-09-28] MEDS: Metoprolol Tartrate 100 MG TAB PO SCH ×2 (08:25→21:53)
[2018-09-28] MEDS: Famotidine 20 MG TAB PO SCH (08:25)
[2018-09-28] MEDS ORDERED: Famotidine/PF 20 mg/2ml Vial SLOW IVP SCH (09:00)
[2018-09-28] MEDS ORDERED: Aspirin 325 MG TAB PO SCH (09:00)
--- NOTE | 2018-09-28 09:16 | HP ---
CHIEF COMPLAINT: Cough. HISTORY OF PRESENT ILLNESS: This is a 57-year-old female with past medical history of diabetes mellitus type 2; end-stage renal disease, on hemodialysis; hyperlipidemia; hypertension; left upper arm fistula, presenting with shortness of breath, cough, and chest discomfort. Per electronic medical records and the patient, she has been having shortness of breath and cough for the past couple of days. The patient is also endorsing sore throat, nasal congestion. The patient stated that the chest pain is localized in left chest substernal and is dull in nature and gets worse with breathing. Of note, the patient was recently seen in the hospital on 05/11/2018 for chest pain, and during that time, CT of the chest was ordered to rule out PE. Nuclear stress test was done which was negative, and the patient was managed supportively, and the patient was discharged home. REVIEW OF SYSTEMS: Positive for sore throat, cough, and chest pain, otherwise as documented in the HPI. All other systems were reviewed and are negative. PAST MEDICAL HISTORY: Significant for diabetes mellitus type 2; end-stage renal disease, on hemodialysis; hyperlipidemia; and hypertension. FAMILY HISTORY: Reviewed and noncontributory to this visit. PAST SURGICAL HISTORY: Hysterectomy, x5, AV fistula of left upper arm. PSYCHIATRIC HISTORY: No previous psych history. SOCIAL HISTORY: The patient denies alcohol use, tobacco use, or illicit drug use. ALLERGIES: NO KNOWN DRUG ALLERGIES. CURRENT MEDICATIONS: The patient is on, 1. Aspirin 81 mg. 2. Tramadol 50 mg. 3. Metoprolol tartrate 25 mg. The patient takes 50 mg b.i.d. 4. Amlodipine 10 mg. 5. Lisinopril 40 mg. 6. Clonidine 0.1 mg. 7. Renvela 800 mg t.i.d. 8. Levemir 22 units. 9. Glipizide 2.5 mg b.i.d. PHYSICAL EXAMINATION: VITAL SIGNS: Blood pressure is 152/88, pulse of 94, respiratory rate of 28, oxygen saturation of 96 on 2 L. GENERAL APPEARANCE: The patient is lying in bed comfortably, does not appear to be in any acute distress. The patient is able to speak in full sentences. HEENT: Mucous membranes are moist. No JVD. Trachea is midline. Full range of motion. Supple. LUNGS: The patient is wheezing bilaterally at the anterior lung solano. The patient has some rhonchi that can be appreciated at the posterior lung solano. CARDIAC: Positive S1 and S2. Regular rate and rhythm. No murmurs. No gallops. No rubs appreciated. ABDOMEN: Soft, nontender, and nondistended. Positive bowel sounds in all quadrant. EXTREMITIES: The patient has 5/5 upper extremity strength and 5/5 lower extremity strength. No edema noted. Good pulses bilaterally at the upper and lower extremities. NEUROLOGIC: Cranial nerves 2 through 12 grossly intact. No neurological deficits noted. SKIN: Warm, dry, and intact. DIAGNOSTIC DATA: EKG that was done showed sinus rhythm with a rate of 93 with left axis deviation with left ventricular hypertrophy. Chest x-ray that was ordered showed mild vascular congestion and possible right upper lobe pneumonia. LABORATORY DATA: Sodium is 134, potassium is 4.1, chloride is 95, anion gap of 17, BUN is 51, creatinine is 5.51, glucose is 260. ASSESSMENT AND PLAN: 1. This is a 57-year-old female with past medical history of end-stage renal disease, on hemodialysis, and diabetes mellitus type 2, being admitted for shortness of breath and chest discomfort at this time to rule out acute coronary syndrome. We will follow up on serial troponins and EKG. We will continue the patient on home medications. We will follow up with cardiology's recommendations. 2. Shortness of breath, likely due to possible pneumonia. At this point, we will start the patient on empiric antibiotics. We will continue the patient on these antibiotics. We will monitor the patient closely. We will continue to manage the patient. 3. Diabetes mellitus type 2. We will continue the patient on insulin sliding scale. 4. End-stage renal disease, on hemodialysis. We will continue the patient on her current regimen for dialysis. 5. Deep vein thrombosis and gastrointestinal prophylaxis. Job ID: [id number]
--- NOTE | 2018-09-28 11:11 | RAD ---
SUPINE ABDOMEN: INDICATION: Abdominal pain. FINDINGS: Scattered stool and gas throughout the colon with mild gaseous distention without dilatation. Small bowel gas pattern is nonspecific with some scattered small bowel gas without dilatation. The presenc e of free air cannot be adequately assessed on this supine exam. IMPRESSION: Nonspecific bowel gas pattern. POS: C
[2018-09-28] MEDS ORDERED: Vancomycin Sliding Scale 1 EACH FS ONE (11:30)
[2018-09-28] MEDS ORDERED: Vancomycin HCl 750 MG in Sodium Chloride 0.9% 250 ML 250 ML IVPB SCH (11:30)
[2018-09-28] MEDS ORDERED: Vancomycin HCl 1.25 GM in Sodium Chloride 0.9% 250 ML 250 ML IVPB SCH (11:30)
[2018-09-28] MEDS ORDERED: Vancomycin HCl 1 GM in Premix Bag 1 BAG IVPB SCH (11:30)
[2018-09-28] MEDS ORDERED: Piperacillin/Tazobactam 0.75 GM in Sodium Chloride 0.9% 100 ML IVPB SCH (11:30)
[2018-09-28] MEDS ORDERED: HOLD VANCOMYCIN FOR LEVEL >20 FS SCH (11:30)
[2018-09-28] MEDS ORDERED: Vancomycin HCl 500 MG in Sodium Chloride 0.9% 100 ML IVPB SCH (11:30)
[2018-09-28] MEDS ORDERED: [UNRECOGNIZED DRUG - REMARK] FS SCH (11:45)
[2018-09-28] MEDS ORDERED: Vancomycin HCl 1.5 GM in Sodium Chloride 0.9% 250 ML 300 ML IVPB SCH (12:00)
[2018-09-28] MEDS: traMADol HCl 50 MG TAB PO PRN (13:56)
[2018-09-28] MEDS: Piperacillin/Tazobactam 2.25 GM in Sodium Chloride 0.9% 100 ML IVPB SCH ×2 (15:19→22:00)
--- NOTE | 2018-09-28 16:31 | CON ---
DATE OF CONSULTATION: 09/28/2018 REASON FOR CONSULTATION: Chest pain, cough, low-grade fever, abnormal EKG. HISTORY OF PRESENT ILLNESS: Ms. Veronica Saldivar is a 57-year-old woman. The patient has history of end-stage renal disease and a long history of diabetes mellitus type 2. She is on hemodialysis. She also has hyperlipidemia and hypertension. She has left upper arm fistula. The patient presented with shortness of breath and a cough and pain in her chest when she coughed. She has been increasingly short of breath last 2 to 3 days. She felt she has sore throat and nasal congestion. The patient reports it is worse when she coughs or takes a deep breath. Also she is having some abdominal discomfort when she coughs. In April 2018, she had chest pain and CT of the chest ruled out pulmonary embolism. Nuclear stress test was negative. REVIEW OF SYSTEMS: CONSTITUTIONAL: Positive for weakness, fatigue, and fever. VISION: No changes. HEARING: No changes. PULMONARY: Positive for cough with some wheezing. Pain when she breathes and coughs. CARDIAC: No anginal type chest pain. GASTROINTESTINAL: No nausea, vomiting, or diarrhea. SKIN: No rashes. NEUROLOGIC: No unilateral weakness or numbness. PSYCHIATRIC: No unusual depression or anxiety. MEDICATIONS: At home, 1. Aspirin. 2. Tramadol. 3. Metoprolol. 4. Amlodipine. 5. Lisinopril. 6. Clonidine. 7. Renvela. 8. Levemir. 9. Glipizide. PHYSICAL EXAMINATION: GENERAL: This is an ill-appearing 57-year-old woman, who does look older than the chronologic age. She looks very uncomfortable. It hurts when she takes a breath in and when she coughs. She is coughing frequently. VITAL SIGNS: Her blood pressure is variable most recently 137/62, pulse 71. EYES: Sclerae nonicteric. Mouth mucous membranes moist. NECK: Supple. No lymphadenopathy. LUNGS: Clear on the left side. On the right side, she has somewhat shallow breath because it hurts to breathe. ABDOMEN: Soft. She does complain of some abdominal discomfort. SKIN: Warm and dry. PSYCHIATRIC: Affect is flushed. EXTREMITIES: Peripheral pulses are diminished. PERTINENT LABORATORY DATA: Hemoglobin is 11.1, WBC 6.6. Sodium 134. Glucose 169, previously 387, creatinine 5.5. Troponin peak 0.029, which in dialysis patient is thought to be indeterminate, but in this dialysis patient it would be in the negative range. Most recent cholesterol level, LDL 109 in May. DIAGNOSTIC STUDIES: EKG; sinus rhythm, incomplete right bundle branch block with left axis deviation, possible old septal infarcts. EKG does look very similar to previous EKGs done here at the hospital. Chest x-ray; possible right upper lobe infiltrate. ASSESSMENT: 1. End-stage renal disease. 2. Diabetes, longstanding. 3. Chest pain appears to be more pleuritic and related to her pneumonia, although certainly she is at high risk of having underlying coronary artery disease. 4. Low-grade fever. PLAN: 1. She is on antibiotics. 2. Echocardiogram pending. 3. Check lipid profile tomorrow. 4. We will be glad to follow with you. The patient does have serious problems including long-standing diabetes with end-stage renal disease. It puts her at high risk of having underlying coronary artery disease, although the current pain does not appear to be anginal. Certainly very high risk of having coronary artery disease. Job ID: [id number]
--- NOTE | 2018-09-28 17:57 | PRG ---
DATE OF SERVICE: 09/28/2018 SUBJECTIVE: The patient continues to have productive cough. Abdominal discomfort is improving. No fever or chills reported. No nausea, vomiting, or diarrhea reported. She continues to have shortness of breath. PHYSICAL EXAMINATION: VITAL SIGNS: Temperature 99, pulse rate of 76, blood pressure of 136/70, O2 saturation 96% on 2 L nasal cannula. GENERAL: A 57-year-old female in no significant respiratory distress while resting. NECK: Supple. No JVD. No carotid bruit. LUNGS: Showed bibasilar rales with scattered rhonchi. HEART: S1, S2 present. Regular rate and rhythm. No rubs or gallops appreciated. ABDOMEN: Soft. Mild generalized tenderness. No rebound or guarding. No costovertebral angle tenderness. EXTREMITIES: No calf tenderness. LABORATORY DATA: Lab findings; CBC showed WBC 6.6, hemoglobin 11.1, hematocrit 32.1, platelets 138. Chemistry showed sodium 134, potassium 4.1, chloride 95, bicarb 26, BUN 51, creatinine 5.51, glucose of 360, last blood sugar was 208. Influenza testing was negative. Blood cultures negative. Telemetry by my review showed sinus rhythm. DIAGNOSTIC DATA: Chest x-ray by my review showed pulmonary vascular congestion with questionable right upper lobe infiltrate. IMPRESSION: 1. Community-acquired pneumonia, suspected pneumococcal. 2. Chronic diastolic heart failure, compensated. 3. End-stage renal disease, on hemodialysis. 4. Abdominal discomfort, improving. 5. Hypertension. 6. Obesity with a BMI of 32.7. 7. Elevated troponin probably secondary to demand ischemia. PLAN: The patient is currently admitted to telemetry unit. We will continue empiric antibiotics as ordered by the admitting physician. We will continue amlodipine, aspirin, clonidine, lisinopril, metoprolol. We will recheck labs in a.m. We will add nebulizer treatments. Recheck labs in a.m. Gastroenterology Service has also been consulted by the admitting physician for nonspecific abdominal pain. KUB was negative for acute findings. Plan of care was discussed with the patient in detail. She stated understanding. Job ID: [id number]
[2018-09-28] MEDS: Doxycycline 100 MG CAP PO SCH (21:56)
--- NOTE | 2018-09-28 22:29 | CON ---
DATE OF CONSULTATION: 09/28/2018 HISTORY OF PRESENT ILLNESS: Mrs. Saldivar is a 57-year-old female with end-stage renal disease, on maintenance dialysis; hypertension; and diabetes, who was admitted to the hospital for coughing and shortness of breath, currently being treated for community-acquired pneumonia. She reports having 5-day duration of intermittent right upper quadrant pain without any radiation. She does have occasional nausea, but no actual vomiting. She denies any altered bowel function. Currently, her main problem is coughing. There is no evidence of GI bleeding such as melena or hematochezia, although she does report occasional rectal bleeding in the recent months. PAST MEDICAL HISTORY: 1. End-stage renal disease, on dialysis. 2. Diabetes type 2. 3. Hyperlipidemia. 4. Hypertension. 5. Status post . 6. Hysterectomy. ALLERGIES: NONE. MEDICATIONS: Include; 1. Tramadol. 2. Metoprolol. 3. Amlodipine. 4. Lisinopril. 5. Clonidine. 6. Aspirin. 7. Renvela. 8. Insulin. 9. Glipizide. SOCIAL HISTORY: The patient is . She denies any tobacco or alcohol usage. FAMILY HISTORY: Negative for any known GI problem, liver disease, or GI malignancy. REVIEW OF SYSTEMS: A 10-point review of systems did not show any other pertinent positives or negatives. PHYSICAL EXAMINATION: VITAL SIGNS: Temperature is 98.2, blood pressure 137/62, pulse of 71. GENERAL: She is alert, coughing, but in no severe distress. HEENT: Shows anicteric sclerae. Oropharynx clear. NECK: Supple. CV: Shows normal S1, S2. Regular rate and rhythm. CHEST: Shows normal breath sounds. No wheezing, some rhonchi. ABDOMEN: Protuberant, soft. No significant tenderness anywhere. No guarding or rebound. She has active bowel sounds. EXTREMITIES: Shows no edema. LABORATORY DATA: WBC 6.6, hemoglobin 11.1, platelet count of 138. Electrolytes within normal range. Creatinine 5.51. Bilirubin 0.3, AST 18, ALT 10, alkaline phosphatase 145. ASSESSMENT: 1. 5-day history of right upper quadrant pain with totally benign exam and normal liver profile. Pain could be from variety of different reasons at this point. 2. Occasional bright red rectal bleeding, suspect outlet in origin. 3. Community-acquired pneumonia, currently being treated. 4. End-stage renal disease. 5. Hypertension/diabetes. RECOMMENDATIONS: 1. We will obtain a right upper quadrant ultrasound in a.m. to assess for any gallbladder pathology. 2. No other GI tests at this point, although she will benefit from an elective colonoscopy in the future for screening purpose and also for evaluation of periodic rectal bleeding. Job ID: [id number]
[2018-09-29] MEDS ORDERED: Diabetic Tussin 200 MG/10 ML UDCUP PO PRN (00:30)
[2018-09-29] MEDS: traMADol HCl 50 MG TAB PO PRN (03:36)
[2018-09-29 04:39] LABS: #Eosinphils 0.1 thou/uL (0.0-0.7); #Lymphocytes 0.8 thou/uL (1.20-3.40); #Monocytes 0.4 thou/uL (0.11-0.59); #Neutrophils 6.8 thou/uL (1.40-6.50); %Eosinophils 0.8 % (0.0-10.0); %Lymphocytes 9.7 % (21.0-51.0); %Monocytes 4.8 % (0.0-10.0); %Neutrophils 84.6 % (42.0-75.0); Mean Corpuscular HGB CONC 33.4 g/dL (32.0-36.0); Mean Corpuscular Hemoglobin 30.5 pg (27.0-31.0); Mean Corpuscular Volume 91.4 fL (78.0-98.0); Mean Platelet Volume 8.2 fL (7.4-10.4); Platelet Count 135 thou/uL (130-400); RBC Distribution Width 13.1 % (11.5-14.5); Red Blood Cell (RBC) Count 3.61 mill/uL (4.20-5.40)
[2018-09-29 04:58] LABS: ALT (SGPT) 9 U/L (8-55); AST (SGOT) 21 U/L (5-34); Albumin 3.5 g/dL (3.5-5.0); Alkaline Phosphatase 102 U/L (40-150); Anion Gap 21 mmol/L (10-20); BUN (Urea Nitrogen) 64 mg/dL (9.8-20.1); Bilirubin, Total 0.4 mg/dL (0.2-1.2); Calc. Creatinine Clearance 10 mL/min (70-130); Calcium 7.9 mg/dL (7.8-10.44); Carbon Dioxide 22 mmol/L (22-29); Cardiac Risk 8.9 (Less than 4.5); Chloride 94 mmol/L (98-107); Cholesterol 223 mg/dl (< 200 Desired); Estimated GFR-MDRD 6; Glucose 261 mg/dL (70-105); HDL Cholesterol 25 mg/dL (>60 Neg Risk); LDL Cholesterol, Calculated 140 mg/dL; Potassium 4.5 mmol/L (3.5-5.1); Protein, Total 7.5 g/dL (6.0-8.3); Sodium 132 mmol/L (136-145); Triglycerides 290 mg/dL (Less than 150)
[2018-09-29] MEDS: Piperacillin/Tazobactam 2.25 GM in Sodium Chloride 0.9% 100 ML IVPB SCH ×3 (06:38→20:37)
[2018-09-29] MEDS: HumaLOG 300 UNITS/3 ML VIAL SC PRN (06:50)
--- NOTE | 2018-09-29 08:08 | ULT ---
SONOGRAM RIGHT UPPER QUADRANT: HISTORY: Right upper quadrant pain. FINDINGS: Gallbladder is somewhat distended up to 10.0 cm. No wall thickening or pericholecystic fluid. No st ones are apparent. The common duct is 0.4 cm. Liver unremarkable without focal mass or intrahepatic biliary dilatation. No free fluid. IMPRESSION: Gallbladder distention without other findings of acute cholecystitis or obstruction. In the fasting state and intubated patient, the gallbladder distention could be an expected finding. No biliary sto ashley are visible. POS: [facility]
[2018-09-29] MEDS: Sevelamer Carbonate 800 MG TAB PO SCH ×3 (08:37→16:27)
[2018-09-29] MEDS ORDERED: Prevnar 13-Val Conj/PF 0.5 ML SYRINGE IM ONE (09:00)
[2018-09-29] MEDS: Heparin 5,000 UNITS/ML VIAL SC SCH ×2 (09:18→20:37)
[2018-09-29] MEDS: cloNIDine 0.1 MG TAB PO SCH ×2 (09:19→20:36)
[2018-09-29] MEDS: Famotidine 20 MG TAB PO SCH (09:19)
[2018-09-29] MEDS: Metoprolol Tartrate 100 MG TAB PO SCH ×2 (09:19→20:37)
[2018-09-29] MEDS: Aspirin 81 mg Enteric Coated Tablet PO SCH (09:19)
[2018-09-29] MEDS: Lisinopril 10 MG TAB PO SCH (09:19)
[2018-09-29] MEDS: Doxycycline 100 MG CAP PO SCH ×2 (09:20→20:37)
[2018-09-29] MEDS: Amlodipine 10 MG TAB PO SCH (09:20)
[2018-09-29 10:41] LABS: Vancomycin, Random 23.5 ug/mL (See Comment)
--- NOTE | 2018-09-29 14:36 | PRG ---
DATE OF SERVICE: 09/29/2018 SUBJECTIVE: The patient was transferred to ICU overnight for respiratory distress. Currently, she is breathing much better. She also reports having much right upper quadrant pain. There is no nausea or vomiting. PHYSICAL EXAMINATION: VITAL SIGNS: Temperature is 98.6, blood pressure 136/74, and pulse of 64. GENERAL: She is weak, but in no distress. HEENT: Exam shows anicteric sclerae. CV: Exam shows normal S1 and S2. Regular rate and rhythm. CHEST: Exam shows breath sounds. ABDOMEN: Protuberant, but no tympany or distention, but few softness. There is no illicit tenderness. No hepatomegaly. She has active bowel sounds. EXTREMITIES: Exam shows no edema. LABORATORY DATA: Electrolytes within normal range. Creatinine 7.02. Bilirubin 0.4, AST 21, ALT of 9, alkaline phosphatase 102. WBC 8.0, hemoglobin 11.0, platelet count of 135. Abdominal ultrasound showed distended gallbladder without any gallbladder wall thickening or pericholecystic fluid. There is no gallstone. Common bile duct measures 4 mm. ASSESSMENT: 1. Right upper quadrant pain, subjectively better. This exam is very benign. No evidence of gallbladder pathology with normal ultrasound and liver profile. 2. Pneumonia, community acquired. 3. Chronic heart failure. 4. End-stage renal disease, on dialysis. 5. Hypertension. 6. Obesity. RECOMMENDATIONS: No new GI test is planned. We will continue to monitor. Job ID: [id number]
--- NOTE | 2018-09-29 16:19 | PRG ---
DATE OF SERVICE: 09/29/2018 SUBJECTIVE: Overnight events were noted. The patient was transferred to Intensive Care Unit for worsening shortness of breath. She is undergoing hemodialysis. She continues to have abdominal discomfort. No fevers or chills reported. She denies any leg swelling. PHYSICAL EXAMINATION: VITAL SIGNS: Temperature 99.3, blood pressure 130/68, heart rate of 68, O2 saturation 99% on nasal cannula. GENERAL: A 57-year-old female, in no significant distress, undergoing hemodialysis. LUNGS: Showed diminished air entry at bilateral bases with scattered rales, especially at bases. HEART: S1 and S2 present. Regular rate and rhythm. No rubs or gallops appreciated. ABDOMEN: Soft, mild generalized tenderness. No guarding or rigidity. EXTREMITIES: No edema or calf tenderness. LABORATORY DATA: Lab findings; WBC 8.0 with hemoglobin 11, hematocrit 33, platelet of 135. Chemistry showed sodium 135, potassium 4.5, chloride 94, bicarb 22, BUN 64, creatinine 7.02. LFTs in normal range. Total cholesterol 223, triglyceride 290, LDL 140, HDL 25. Blood cultures were negative. Abdominal ultrasound showed gallbladder distention without any other findings consistent with acute cholecystitis. IMPRESSION: 1. Acute hypoxic respiratory failure, requiring noninvasive positive pressure ventilation last night. This is probably secondary to pneumonia as well as volume overload/acute on chronic diastolic heart failure. 2. Community-acquired pneumonia, suspected pneumococcal. 3. Acute on chronic diastolic heart failure/volume overload. 4. End-stage renal disease, on hemodialysis. 5. Abdominal discomfort, improving. Right upper quadrant ultrasound was essentially negative, except for gallbladder distention. 6. Hypertensive urgency. 7. Obesity with a body mass index of 32.7. 8. Elevated troponin secondary to demand ischemia. PLAN: 1. We will continue nebulizer treatment. We will discontinue nitroglycerin patch. We will continue empiric antibiotics. Dialysis per Nephrology. We will continue all other home medications including amlodipine, lisinopril, and metoprolol. Echocardiogram showed left ventricular ejection fraction 55% to 60% with mild left concentric hypertrophy. 2. Telemetry monitoring by my review showed sinus rhythm. Job ID: [id number] MTDD
[2018-09-29] MEDS: Guaifenesin DM 100-10/5 ML UDCUP PO PRN (20:39)
--- NOTE | 2018-09-30 00:58 | CON ---
DATE OF CONSULTATION: REQUESTING PHYSICIAN: Gigi Archer DO REASON FOR CONSULTATION: Need for maintenance hemodialysis. IMPRESSION: End-stage renal disease on Wednesday, and Wednesday schedule, due for dialysis today. PLAN: In accordance with the patient's schedule, the patient to be scheduled to undergo dialysis today with ultrafiltration as tolerated by hemodynamics. HISTORY: This is a 57-year-old female patient, who presented with cough and shortness of breath. The patient was given antibiotics, reactively treated, and then was sent to the ICU. The need for continued maintenance hemodialysis necessitated this Renal consultation. PAST MEDICAL HISTORY: Significant for type 2 diabetes, end-stage renal disease, dyslipidemia, and hypertension. FAMILY HISTORY: Not significantly related to presenting illness. SOCIAL HISTORY: No alcohol. No tobacco. No illicit drug use. ALLERGIES: NO KNOWN DRUG ALLERGIES. REVIEW OF SYSTEMS: As documented in the body of history. All the other history were reviewed and found not to be significantly related to presenting illness. PHYSICAL EXAMINATION: GENERAL: The patient was found to be hacking and coughing. VITAL SIGNS: Noted with the following vital signs; afebrile, blood pressure 154/69, pulse of 77, and O2 saturation of 94%. HEENT: Unremarkable. Moist oral mucosa. Neck was supple. No conjunctival injection or icterus. CARDIOVASCULAR: First and second heart sounds were heard. RESPIRATORY: Clear to auscultation. DIGESTIVE SYSTEM: Revealed a benign abdomen with positive bowel sounds. EXTREMITIES: No peripheral edema. SKIN: No new gross rash. LYMPHATICS: No peripheral lymphadenopathy. SUMMARY: A 57-year-old female patient with end-stage renal disease, hemodialysis dependent, who presented here with cough and shortness of breath. Thank you for this consultation. We will follow with you. Job ID: [id number]
[2018-09-30] MEDS: Piperacillin/Tazobactam 2.25 GM in Sodium Chloride 0.9% 100 ML IVPB SCH ×3 (05:52→20:56)
--- NOTE | 2018-09-30 07:18 | CON ---
DATE OF CONSULTATION: 09/29/2018 HISTORY OF PRESENT ILLNESS: This is a 57-year-old female, who was admitted yesterday on 09/28 with past medical history of diabetes mellitus type 2, end-stage renal disease on hemodialysis, and hypertension, who came in with shortness of breath and cough and found to have a right upper quadrant pneumonia. She was also having some chest pain during this time on the left side. Cardiology was consulted. Trops were trended down and chest pain was more thought to be pleuritic chest pain at this time. Overnight, the patient had episodes of increasing, needing increased oxygen, had increased blood pressures. She was then sent to the Critical Care Unit, where she received a few of hours of BiPAP. When seen her this morning, she was on 2 L of nasal cannula. We stopped her oxygen and she saturated fine at 93% on room air. REVIEW OF SYSTEMS: The patient appears of little illness. She reports of having cough, sore throat and little bit of chest pain. The patient denies any abdominal pain at this time. Denies any nausea, vomiting, diarrhea, or constipation. Denies any leg swelling. Denies any headaches, vision changes, or dizziness. Denies any urinary symptoms at this time. All other review of systems not listed at this time are otherwise negative. PAST MEDICAL HISTORY: 1. Diabetes mellitus type 2. 2. End-stage renal disease, on hemodialysis. 3. Hyperlipidemia. 4. Hypertension. FAMILY HISTORY: Noncontributory to this visit. PAST SURGICAL HISTORY: 1. Hysterectomy. 2. x5. 3. AV fistula of left upper arm. SOCIAL HISTORY: The patient denied alcohol, tobacco, or illicit drug use. ALLERGIES: THE PATIENT HAS NO KNOWN DRUG ALLERGIES. MEDICATIONS: 1. Aspirin 81 mg. 2. Tramadol 50 mg. 3. Metoprolol 50 mg b.i.d. 4. Amlodipine 10 mg. 5. Lisinopril 40 mg. 6. Clonidine 0.1 mg. 7. Renvela 800 mg t.i.d. 8. Levemir 22 units. 9. Glipizide 2.5 mg b.i.d. PHYSICAL EXAMINATION: VITAL SIGNS: The patient's temperature is 98.6, her heart rate was 63, her blood pressure is 149/73, O2 saturation was 96% on 2 liters, we turned it off to 0 L, it dropped, still maintains sats at 95% on no oxygen, and respiratory rate of 21. LABORATORY DATA: White blood cell count 8.0, hemoglobin 11.0, and platelet count 135 with neutrophils 84.6, neutrophil number 6.8. Sodium was 132, potassium 4.5, chloride 94, carbon dioxide 22, BUN 64, creatinine 7.02, glucose 261, calcium 7.9, total bilirubin 0.4, AST 21, ALT 9. Flu A and B were negative. IMAGING: She got a chest x-ray on 09/27/2018, which showed mild vascular congestion, however, slightly improved from prior study. New patchy alveolar parenchymal density in right upper lobe evidence for right upper lobe pneumonia. She got an abdominal x-ray on 09/28/2018, which showed nonspecific bowel gas pattern. She had an echo on 09/28/2018, which showed left ventricular normal size with EF of 55% to 60%, showed mild mitral regurg and structurally normal aortic valve. She also got an abdominal ultrasound on 09/29/2018. Gallbladder distention without any findings to indicate cholecystitis or obstruction. In the fasting state and intubated patient, gallbladder distention could be an expected finding, no biliary stones are visible. ASSESSMENT: 1. Acute respiratory failure secondary to right upper lobe pneumonia. 2. Diabetes mellitus type 2. 3. End-stage renal disease, on hemodialysis. 4. Hypertension. PLAN: We have weaned the patient off oxygen. She was maintained on O2 sats at 95%. We will discontinue her vancomycin as we suspect that the pneumonia is likely some form of aspiration pneumonia. We will continue her on the Zosyn for now, and we will believe that patient likely got a little bit of fluid overload overnight due to missing dialysis on Wednesday and that is why she got a little bit hypoxic overnight. She is getting dialysis currently and is maintaining her O2 sats fine. The patient has already been seen by Cardiology who did not see any acute heart failure exacerbation. She has been seen by GI and no further recommendations. She is stable to be transferred to the floor. At this time, we will transfer to the floor and continue to follow along. Job ID: [id number]
[2018-09-30] MEDS: Doxycycline 100 MG CAP PO SCH ×2 (09:39→20:51)
[2018-09-30] MEDS: Heparin 5,000 UNITS/ML VIAL SC SCH ×2 (09:39→20:51)
[2018-09-30] MEDS: Sevelamer Carbonate 800 MG TAB PO SCH ×3 (09:40→18:10)
[2018-09-30] MEDS: Lisinopril 10 MG TAB PO SCH (09:40)
[2018-09-30] MEDS: cloNIDine 0.1 MG TAB PO SCH ×2 (09:40→20:51)
[2018-09-30] MEDS: Aspirin 81 mg Enteric Coated Tablet PO SCH (09:40)
[2018-09-30] MEDS: Metoprolol Tartrate 50 MG TAB PO SCH ×2 (09:41→20:52)
[2018-09-30] MEDS: Famotidine 20 MG TAB PO SCH (09:41)
[2018-09-30] MEDS: Amlodipine 10 MG TAB PO SCH (09:41)
--- NOTE | 2018-09-30 09:43 | PRG ---
DATE OF SERVICE: 09/30/2018 SUBJECTIVE: Ms. Saldivar says she feels only fair. She is not having chest pain, but she does have some shortness of breath. She also has a cough. OBJECTIVE: VITAL SIGNS: Her blood pressure is 133/65 and pulse 70. LUNGS: Expiratory wheezing. CARDIAC: Normal S1 and normal S2. ABDOMEN: Soft and nontender. EXTREMITIES: Warm and dry. ASSESSMENT: 1. Respiratory failure with wheezing. 2. Recent diagnosis of pneumonia. 3. End-stage renal disease. PLAN: 1. We will repeat chest x-ray. 2. She is on antibiotics. 3. If the pneumonia is worse, may need to consider Pulmonary consultation. 4. The patient has diabetes with hypercholesterolemia, LDL of 140, I will start a statin. Job ID: [id number]
--- NOTE | 2018-09-30 09:55 | RAD ---
CHEST ONE VIEW: History: Chest pain, dyspnea. Comparison: 09-27-18 FINDINGS: Right upper lobe airspace opacity is worse from the comparison examination. Lungs are hypoinflated. S mall right effusion. No pneumothorax. IMPRESSION: Worsening right upper lobe airspace opacity. Continued follow up recommended. POS: [facility]
--- NOTE | 2018-09-30 10:39 | PRG ---
DATE OF SERVICE: 09/30/2018 SERVICE: Pulmonary Medicine. INTERVAL HISTORY: The patient remains weak. She denies any current shortness of breath or chest discomfort. She is coughing frequently. She has a lot of phlegm, but does not know the character of it. She denies any fever overnight events otherwise. PHYSICAL EXAMINATION: VITAL SIGNS: Afebrile. Pulse 70, blood pressure 133/65, respirations 18, and saturations 93% on 2 L nasal cannula. GENERAL: The patient is awake, alert, in no apparent distress. LUNGS: Rhonchi are present. There is also a little bit of expiratory wheezing. She has dependent crackles which are quite extensive. HEART: Normal rate. Regular. ABDOMEN: Soft, nontender, and nondistended. Bowel sounds are positive. MUSCULOSKELETAL: No cyanosis or clubbing. There is trace pitting in the bilateral lower extremities. NEUROLOGIC: Grossly nonfocal. LABORATORY DATA: WBC 8.0, hemoglobin 11.0, and platelets 135,000. Creatinine 7.02 and BUN 64. Basic metabolic profile and liver function studies are otherwise unremarkable. Random vancomycin level is 23.5. Influenza A and B are negative, blood cultures x2 are unremarkable. IMAGING STUDIES: Gallbladder distention without other findings of cholecystitis or obstruction. ASSESSMENT: 1. Acute hypoxic respiratory failure. 2. Community-acquired pneumonia, possible. 3. End-stage renal disease. 4. Hypertensive emergency. 5. Type 2 diabetes mellitus. DISCUSSION AND PLAN: We will continue our efforts at getting the patient down to euvolemia. She still remains mildly volume overloaded. We will wean away oxygen as tolerated. We will continue the empiric antibiotics for the time being, but these can be deescalated in 24 hours if nothing grows. We will repeat imaging in the morning. Pulmonary Critical Care will continue to follow along for now. Job ID: [id number]
--- NOTE | 2018-09-30 11:53 | PDOC.PN ---
- Subjective Encounter Start Date: 09/30/18 Encounter Start Time: 10:30 Patient seen and examined for Pneumonia/Resp failure. Feels gen weak. No CP. No other complaints. No overnight events - Objective Resuscitation Status - Order Detail: 09/28/18 00:46 Resuscitation Status Routine Resuscitation Status: FULL: Full Resuscitation MAR Reviewed: Yes Vital Signs & Weight: Vital Signs (12 hours) Temp Pulse Resp BP BP Pulse Ox 09/30/18 09:41 77 154/66 H 09/30/18 09:40 154/66 H 09/30/18 07:36 98.1 F 70 18 133/65 93 L 09/30/18 07:17 98 09/30/18 07:16 71 16 09/30/18 03:58 98.2 F 70 21 H 126/68 95 09/30/18 02:26 79 16 95 Weight Weight 167 lb 6.4 oz Most Recent Monitor Data Heart Rate from ECG 75 NIBP 114/64 NIBP BP-Mean 80 Respiration from ECG 21 SpO2 98 I&O: 09/29/18 09/30/18 10/01/18 06:59 06:59 06:59 Intake Total 1490 1090 Output Total 0 0 Balance 1490 1090 Result Diagrams: 09/29/18 03:34 09/29/18 03:34 Additional Labs: Accuchecks 09/29/18 16:07 POC Glucose 145 H Radiology Reviewed by me: Yes (CXR - Rt sided Pneumonia) EKG Reviewed by me: Yes (Tele SR) Phys Exam - Physical Examination Constitutional: NAD Respiratory: wheezing present Rt sided rales with scat rhonchi Cardiovascular: RRR, no rub Gastrointestinal: soft, non-tender, positive bowel sounds Neurological: moves all 4 limbs Psychiatric: A&O x 3 Dx/Plan - Plan DVT proph w/heparin, DVT proph w/SCDs 1. Acute hypoxic respiratory failure s/p NIPPV. 2. Community-acquired pneumonia, suspected pneumococcal. 3. Acute on chronic diastolic heart failure/volume overload. 4. End-stage renal disease, on hemodialysis. 5. Abdominal discomfort, improving. ?etio 6. Hypertensive urgency. 7. Obesity with a body mass index of 32.7. 8. Elevated troponin secondary to demand ischemia. PLAN: Cont Empiric Atbx Cont Nebs with O2 supp AM labs Cont current HTN meds - Metoprolol dose reduce Cont other meds as below Dialysis per Nephrology Review of Systems - Review of Systems Respiratory: Cough, SOB with Excertion, Wheezing Cardiovascular: negative: chest pain, palpitations, orthopnea, paroxysmal nocturnal dyspnea, edema, light headedness, other Gastrointestinal: negative: Nausea, Vomiting, Abdominal Pain, Diarrhea, Constipation, Melena, Hematochezia, Other - Medications/Allergies Allergies/Adverse Reactions: Allergies Allergy/AdvReac Type Severity Reaction Status Date / Time No Known Allergies Allergy Verified 05/25/18 10:49 Medications: Current Medications Acetaminophen (Tylenol) 650 mg PO Q4H PRN PRN Reason: Headache/Fever/Mild Pain (1-3) Last Admin: 09/29/18 03:30 Dose: 650 mg Albuterol/Ipratropium (Duoneb) 3 ml NEB Q2H PRN PRN Reason: SOB &/or Wheezing Albuterol/Ipratropium (Duoneb) 3 ml NEB [id number] [facility] Amlodipine Besylate (Norvasc) 10 mg PO DAILY [facility] Last Admin: 09/30/18 09:41 Dose: 10 mg Aspirin (Ecotrin) 81 mg PO DAILY [facility] Last Admin: 09/30/18 09:40 Dose: 81 mg Atorvastatin Calcium (Lipitor) 40 mg PO HS [facility] Bisacodyl (Dulcolax) 10 mg PO DAILYPRN PRN PRN Reason: Constipation Cholecalciferol (Vitamin D3) 2,000 units PO DAILY [facility] Last Admin: 09/30/18 09:40 Dose: 2,000 units Clonidine (Catapres) 0.2 mg PO BID [facility] Last Admin: 09/30/18 09:40 Dose: 0.2 mg Dextrose/Water (Dextrose 50%) 25 gm SLOW IVP PRN PRN PRN Reason: Hypoglycemia Doxycycline Hyclate (Vibramycin) 100 mg PO BID [facility] Last Admin: 09/30/18 09:39 Dose: 100 mg Famotidine (Pepcid) 20 mg PO 0900 [facility] Last Admin: 09/30/18 09:41 Dose: 20 mg Glucagon (Glucagon) 1 mg IM PRN PRN PRN Reason: Hypoglycemia Guaifenesin/Dextromethorphan (Robitussin Dm) 15 ml PO Q4H PRN PRN Reason: Cough Last Admin: 09/29/18 20:39 Dose: 15 ml Heparin Sodium (Porcine) (Heparin) 5,000 units SC BID [facility] Last Admin: 09/30/18 09:39 Dose: 5,000 units Hydralazine HCl (Apresoline) 10 mg SLOW IVP Q4H PRN PRN Reason: Hypertension Last Admin: 09/28/18 01:41 Dose: 10 mg Dextrose/Water (D5w) 1,000 mls @ 0 mls/hr IV .Q0M PRN PRN Reason: Hypoglycemia Piperacillin Sod/Tazobactam (Sod 2.25 gm/ Sodium Chloride) 100 mls @ 200 mls/ hr IVPB Q8HR [facility] Last Admin: 09/30/18 05:52 Dose: 100 mls Piperacillin Sod/Tazobactam (Sod 0.75 gm/ Sodium Chloride) 100 mls @ 200 mls/ hr IVPB .POST HD- WILLCALL [facility] Insulin Human Lispro (Humalog) 0 units SC .MODERATE SLIDING SC PRN PRN Reason: Moderate Correctional Scale Last Admin: 09/29/18 06:50 Dose: 8 unit Insulin Human Lispro (Humalog) 0 units SC .BEDTIME SLIDING SC PRN PRN Reason: Bedtime Correctional Scale Lisinopril (Zestril) 10 mg PO DAILY [facility] Last Admin: 09/30/18 09:40 Dose: 10 mg Metoprolol Tartrate (Lopressor) 50 mg PO BID [facility] Last Admin: 09/30/18 09:41 Dose: 50 mg Miscellaneous Medication (Pharmacy To Dose) 1 each IVPB DAILYPRN PRN PRN Reason: LABS Miscellaneous Medication (Pharmacy To Dose) 1 each IVPB ONE PRN PRN Reason: Pharmacy to dose Stop: 10/08/18 16:59 Nitroglycerin (Nitrostat) 0.4 mg PO Q5MIN PRN PRN Reason: Chest Pain Hold Vancomycin For (Level >20) 0 each FS .AT DIALYSIS [facility] Vanc Level Prior To (Each Dialysis) 1 each FS .VANC LVL DIALYSIS [facility] Ondansetron HCl (Zofran Odt) 4 mg PO Q6H PRN PRN Reason: Nausea/Vomiting Ondansetron HCl (Zofran) 4 mg IVP Q6H PRN PRN Reason: Nausea/Vomiting Pneumococcal 13-Valent Conj Vacc (Prevnar) 0.5 ml IM .ONCE ONE Stop: 10/01/18 10:01 Senna/Docusate Sodium (Senokot S) 2 tab PO BID PRN PRN Reason: Constipation Sevelamer Carbonate (Renvela) 800 mg PO TID-[facility] Last Admin: 09/30/18 09:40 Dose: 800 mg Sodium Chloride (Flush - Normal Saline) 10 ml IVF Q12HR PRN PRN Reason: Saline Flush Sodium Chloride (Flush - Normal Saline) 10 ml IVF PRN PRN PRN Reason: Saline Flush Tramadol HCl (Ultram) 50 mg PO Q4H PRN PRN Reason: Pain Last Admin: 09/29/18 03:36 Dose: 50 mg
[2018-09-30] MEDS: HumaLOG 300 UNITS/3 ML VIAL SC PRN ×2 (12:33→20:56)
--- NOTE | 2018-09-30 19:07 | PRG ---
DATE OF SERVICE: 09/30/2018 SUBJECTIVE: Other than coughing, the patient is without any other complaint. She is tolerating diet. No nausea or vomiting. She does have some vague migratory abdominal pain. No diarrhea. PHYSICAL EXAMINATION: VITAL SIGNS: Temperature IS 98.6, blood pressure 120/60, pulse of 70. GENERAL: She is alert, coughing, but in no distress. HEENT: Exam shows anicteric sclerae. NECK: Supple. CV: Exam shows normal S1, S2, and regular rate and rhythm. CHEST: Exam shows a breath sound, some wheezing and cough. ABDOMEN: Very protuberant, but soft and nontender. She has active bowel sounds. EXTREMITIES: Exam shows no edema. LABORATORY DATA: WBC is 8.0, hemoglobin 11.0, platelet count 135. Electrolytes within normal range. Creatinine 7.2. Bilirubin 0.4, AST 21, ALT of 9, phosphatase 102. ASSESSMENT: 1. Right upper quadrant pain on admission, now resolved. Right upper quadrant ultrasound was normal. Liver profile normal. No active GI process is evident at this point. 2. Pneumonia. 3. Chronic heart failure. 4. End-stage renal disease, on dialysis. 5. Hypertension. 6. Diabetes. 7. Obesity. RECOMMENDATION: Overall stable from GI standpoint. No active issue at the present time. Please recall if needed. Job ID: [id number]
[2018-09-30] MEDS: Atorvastatin Calcium 40 MG TAB PO SCH (20:51)
[2018-09-30] MEDS: Guaifenesin DM 100-10/5 ML UDCUP PO PRN (20:52)
[2018-10-01] MEDS: Piperacillin/Tazobactam 2.25 GM in Sodium Chloride 0.9% 100 ML IVPB SCH ×2 (04:59→15:26)
[2018-10-01 06:00] LABS: #Eosinphils 0.1 thou/uL (0.0-0.7); #Lymphocytes 1.1 thou/uL (1.20-3.40); #Monocytes 0.5 thou/uL (0.11-0.59); #Neutrophils 3.6 thou/uL (1.40-6.50); %Basophils 0.3 % (0.0-1.0); %Eosinophils 2.1 % (0.0-10.0); %Lymphocytes 20.5 % (21.0-51.0); %Monocytes 8.6 % (0.0-10.0); %Neutrophils 68.5 % (42.0-75.0); Hemoglobin 10.2 g/dL (12.0-16.0); Mean Corpuscular HGB CONC 33.8 g/dL (32.0-36.0); Mean Corpuscular Hemoglobin 30.8 pg (27.0-31.0); Platelet Count 153 thou/uL (130-400); RBC Distribution Width 12.8 % (11.5-14.5); Red Blood Cell (RBC) Count 3.31 mill/uL (4.20-5.40); White Blood Cell (WBC) Count 5.3 thou/uL (4.8-10.8)
[2018-10-01 06:11] LABS: Anion Gap 22 mmol/L (10-20); BUN (Urea Nitrogen) 60 mg/dL (9.8-20.1); Calc. Creatinine Clearance 9 mL/min (70-130); Calcium 7.5 mg/dL (7.8-10.44); Carbon Dioxide 23 mmol/L (22-29); Chloride 93 mmol/L (98-107); Estimated GFR-MDRD 5; Glucose 240 mg/dL (70-105); Potassium 3.8 mmol/L (3.5-5.1); Sodium 134 mmol/L (136-145)
[2018-10-01] MEDS: Sevelamer Carbonate 800 MG TAB PO SCH ×3 (09:18→16:37)
[2018-10-01] MEDS: Heparin 5,000 UNITS/ML VIAL SC SCH ×2 (09:18→20:49)
[2018-10-01] MEDS ORDERED: Prevnar 13-Val Conj/PF 0.5 ML SYRINGE IM ONE (10:00)
--- NOTE | 2018-10-01 13:40 | EKG ---
Test Reason : Blood Pressure : / mmHG Vent. Rate : 093 BPM Atrial Rate : 093 BPM P-R Int : 206 ms QRS Dur : 100 ms QT Int : 392 ms P-R-T Axes : 066 -59 089 degrees QTc Int : 487 ms Normal sinus rhythm Possible Left atrial enlargement Left axis deviation Incomplete right bundle branch block Left ventricular hypertrophy with repolarization abnormality Cannot rule out Septal infarct , age undetermined Abnormal ECG Confirmed by URBANO JUNG DO ([id number]), image editor KENYETTA ROWAN ([id number]) on 10/01/2018 1:39:42 PM Referred By: Confirmed By:URBANO JUNG DO
--- NOTE | 2018-10-01 13:41 | PDOC.PN ---
- Subjective Encounter Start Date: 10/01/18 Encounter Start Time: 10:15 Patient seen and examined for Pneumonia/CHF. Feels slightly better, Undergoing dialysis. Cough +. No overnight events - Objective Resuscitation Status - Order Detail: 09/28/18 00:46 Resuscitation Status Routine Resuscitation Status: FULL: Full Resuscitation MAR Reviewed: Yes Vital Signs & Weight: Vital Signs (12 hours) Temp Pulse Resp BP Pulse Ox 10/01/18 07:15 80 14 10/01/18 03:45 97.8 F 73 20 133/74 96 Weight Weight 167 lb 6.4 oz Most Recent Monitor Data Heart Rate from ECG 75 NIBP 114/64 NIBP BP-Mean 80 Respiration from ECG 21 SpO2 98 I&O: 09/30/18 10/01/18 10/02/18 06:59 06:59 06:59 Intake Total 1090 1900 Output Total 0 Balance 1090 1900 Result Diagrams: 10/01/18 05:40 10/02/18 04:17 Additional Labs: Accuchecks 09/30/18 16:55 POC Glucose 149 H EKG Reviewed by me: Yes (Tele SR) Phys Exam - Physical Examination Constitutional: NAD Neck: no JVD Respiratory: wheezing present Rt sided rales with rhonchi Gastrointestinal: soft, positive bowel sounds Musculoskeletal: no edema Neurological: moves all 4 limbs Dx/Plan - Plan DVT proph w/SCDs 1. Acute hypoxic respiratory failure s/p NIPPV. 2. Community-acquired pneumonia, suspected pneumococcal. 3. Acute on chronic diastolic heart failure/volume overload. 4. End-stage renal disease, on hemodialysis. 5. Abdominal discomfort, improving. ?etio, RUQ - gall bladder distention. 6. Hypertensive urgency. 7. Obesity with a body mass index of 32.7. 8. Elevated troponin secondary to demand ischemia. PLAN: Cont Zosyn with Doxycycline with Nebs/O2 Cont current HTN meds Cont other meds as below Dialysis per Nephrology AM labs Await CXR today Review of Systems - Review of Systems Respiratory: Shortness of Breath, SOB with Excertion. negative: Dry, Hemoptysis , Pleuritic Pain, Sputum, Wheezing Cardiovascular: negative: chest pain, palpitations, orthopnea, paroxysmal nocturnal dyspnea, edema, light headedness, other - Medications/Allergies Allergies/Adverse Reactions: Allergies Allergy/AdvReac Type Severity Reaction Status Date / Time No Known Allergies Allergy Verified 05/25/18 10:49 Medications: Current Medications Acetaminophen (Tylenol) 650 mg PO Q4H PRN PRN Reason: Headache/Fever/Mild Pain (1-3) Last Admin: 09/29/18 03:30 Dose: 650 mg Albuterol/Ipratropium (Duoneb) 3 ml NEB Q2H PRN PRN Reason: SOB &/or Wheezing Albuterol/Ipratropium (Duoneb) 3 ml NEB [id number] [facility] Last Admin: 10/01/18 07:15 Dose: 3 ml Amlodipine Besylate (Norvasc) 10 mg PO DAILY [facility] Last Admin: 09/30/18 09:41 Dose: 10 mg Aspirin (Ecotrin) 81 mg PO DAILY [facility] Last Admin: 09/30/18 09:40 Dose: 81 mg Atorvastatin Calcium (Lipitor) 40 mg PO HS [facility] Last Admin: 09/30/18 20:51 Dose: 40 mg Bisacodyl (Dulcolax) 10 mg PO DAILYPRN PRN PRN Reason: Constipation Cholecalciferol (Vitamin D3) 2,000 units PO DAILY [facility] Last Admin: 09/30/18 09:40 Dose: 2,000 units Clonidine (Catapres) 0.2 mg PO BID [facility] Last Admin: 09/30/18 20:51 Dose: 0.2 mg Dextrose/Water (Dextrose 50%) 25 gm SLOW IVP PRN PRN PRN Reason: Hypoglycemia Doxycycline Hyclate (Vibramycin) 100 mg PO BID [facility] Last Admin: 09/30/18 20:51 Dose: 100 mg Famotidine (Pepcid) 20 mg PO 0900 [facility] Last Admin: 09/30/18 09:41 Dose: 20 mg Glucagon (Glucagon) 1 mg IM PRN PRN PRN Reason: Hypoglycemia Guaifenesin/Dextromethorphan (Robitussin Dm) 15 ml PO Q4H PRN PRN Reason: Cough Last Admin: 09/30/18 20:52 Dose: 15 ml Heparin Sodium (Porcine) (Heparin) 5,000 units SC BID [facility] Last Admin: 10/01/18 09:18 Dose: Not Given Hydralazine HCl (Apresoline) 10 mg SLOW IVP Q4H PRN PRN Reason: Hypertension Last Admin: 09/28/18 01:41 Dose: 10 mg Dextrose/Water (D5w) 1,000 mls @ 0 mls/hr IV .Q0M PRN PRN Reason: Hypoglycemia Piperacillin Sod/Tazobactam (Sod 2.25 gm/ Sodium Chloride) 100 mls @ 200 mls/ hr IVPB Q8HR [facility] Last Admin: 10/01/18 04:59 Dose: 100 mls Piperacillin Sod/Tazobactam (Sod 0.75 gm/ Sodium Chloride) 100 mls @ 200 mls/ hr IVPB .POST HD- [facility] Insulin Human Lispro (Humalog) 0 units SC .MODERATE SLIDING SC PRN PRN Reason: Moderate Correctional Scale Last Admin: 09/30/18 12:33 Dose: 4 unit Insulin Human Lispro (Humalog) 0 units SC .BEDTIME SLIDING SC PRN PRN Reason: Bedtime Correctional Scale Last Admin: 09/30/18 20:56 Dose: 2 unit Lisinopril (Zestril) 10 mg PO DAILY [facility] Last Admin: 09/30/18 09:40 Dose: 10 mg Metoprolol Tartrate (Lopressor) 50 mg PO BID [facility] Last Admin: 09/30/18 20:52 Dose: 50 mg Miscellaneous Medication (Pharmacy To Dose) 1 each IVPB DAILYPRN PRN PRN Reason: LABS Miscellaneous Medication (Pharmacy To Dose) 1 each IVPB ONE PRN PRN Reason: Pharmacy to dose Stop: 10/08/18 16:59 Nitroglycerin (Nitrostat) 0.4 mg PO Q5MIN PRN PRN Reason: Chest Pain Hold Vancomycin For (Level >20) 0 each FS .AT DIALYSIS [facility] Vanc Level Prior To (Each Dialysis) 1 each FS .VANC LVL DIALYSIS [facility] Ondansetron HCl (Zofran Odt) 4 mg PO Q6H PRN PRN Reason: Nausea/Vomiting Ondansetron HCl (Zofran) 4 mg IVP Q6H PRN PRN Reason: Nausea/Vomiting Senna/Docusate Sodium (Senokot S) 2 tab PO BID PRN PRN Reason: Constipation Sevelamer Carbonate (Renvela) 800 mg PO TID-[facility] Last Admin: 10/01/18 09:18 Dose: Not Given Sodium Chloride (Flush - Normal Saline) 10 ml IVF Q12HR PRN PRN Reason: Saline Flush Sodium Chloride (Flush - Normal Saline) 10 ml IVF PRN PRN PRN Reason: Saline Flush Last Admin: 09/30/18 14:51 Dose: 10 ml Tramadol HCl (Ultram) 50 mg PO Q4H PRN PRN Reason: Pain Last Admin: 09/29/18 03:36 Dose: 50 mg
[2018-10-01] MEDS: cloNIDine 0.1 MG TAB PO SCH ×2 (13:42→20:48)
[2018-10-01] MEDS: Doxycycline 100 MG CAP PO SCH ×2 (13:43→20:49)
[2018-10-01] MEDS: Metoprolol Tartrate 50 MG TAB PO SCH ×2 (13:43→20:49)
[2018-10-01] MEDS: Lisinopril 10 MG TAB PO SCH (15:27)
[2018-10-01] MEDS: Amlodipine 10 MG TAB PO SCH (15:28)
[2018-10-01] MEDS: Famotidine 20 MG TAB PO SCH (15:28)
[2018-10-01] MEDS: Aspirin 81 mg Enteric Coated Tablet PO SCH (15:28)
--- NOTE | 2018-10-01 16:19 | RAD ---
RADIOGRAPH CHEST 2 VIEWS: Date: 10/01/18 Time: 2:49 p.m. HISTORY: 57-year-old female, followup infiltrate. COMPARISON: 09/30/18, 9:31 a.m. FINDINGS: The previously demonstrated large right upper lobe infiltrate has become much smaller. There is cardi omegaly. No pulmonary edema. No pneumothorax or pleural effusion. The left lung is clear. IMPRESSION: 1. Significant interval improvement in the right upper lobe infiltrate. 2. Cardiomegaly. IVAN [] POS: SALLY
--- NOTE | 2018-10-01 18:00 | PRG ---
DATE OF SERVICE: 10/01/2018 SUBJECTIVE: Ms. Saldivar is clinically stable, feeling a little bit better. OBJECTIVE: VITAL SIGNS: Have been stable. Physical exam is essentially unchanged. LABORATORY DATA: Cultures remain negative. Chest radiograph reviewed today shows improved infiltrates, arguing that these infiltrates are volume related. PLAN: We will discontinue the Zosyn and continue to watch her closely. She is on doxycycline. Job ID: [id number]
[2018-10-01] MEDS: Atorvastatin Calcium 40 MG TAB PO SCH (20:48)
[2018-10-02 05:36] LABS: Anion Gap 19 mmol/L (10-20); BUN (Urea Nitrogen) 28 mg/dL (9.8-20.1); Calc. Creatinine Clearance 14 mL/min (70-130); Calcium 8.3 mg/dL (7.8-10.44); Carbon Dioxide 27 mmol/L (22-29); Chloride 94 mmol/L (98-107); Estimated GFR-MDRD 9; Glucose 225 mg/dL (70-105); Potassium 3.7 mmol/L (3.5-5.1); Sodium 136 mmol/L (136-145)
[2018-10-02 07:52] LABS: Vancomycin, Trough 12.6 ug/mL
[2018-10-02] MEDS: Heparin 5,000 UNITS/ML VIAL SC SCH ×2 (09:29→21:37)
[2018-10-02] MEDS: HumaLOG 300 UNITS/3 ML VIAL SC PRN ×3 (09:29→21:44)
[2018-10-02] MEDS: cloNIDine 0.1 MG TAB PO SCH ×2 (09:30→21:37)
[2018-10-02] MEDS: Aspirin 81 mg Enteric Coated Tablet PO SCH (09:30)
[2018-10-02] MEDS: Doxycycline 100 MG CAP PO SCH ×2 (09:30→21:37)
[2018-10-02] MEDS: Metoprolol Tartrate 50 MG TAB PO SCH ×2 (09:30→21:37)
[2018-10-02] MEDS: Sevelamer Carbonate 800 MG TAB PO SCH ×3 (09:30→17:58)
[2018-10-02] MEDS: Amlodipine 10 MG TAB PO SCH (09:31)
[2018-10-02] MEDS: Famotidine 20 MG TAB PO SCH (09:31)
[2018-10-02] MEDS: Lisinopril 10 MG TAB PO SCH (09:31)
--- NOTE | 2018-10-02 12:49 | PDOC.PN ---
- Subjective Encounter Start Date: 10/02/18 Encounter Start Time: 08:00 Patient seen and examined for resp failure/Pneumonia. Dry cough +. No new complaints. No overnight events - Objective Resuscitation Status - Order Detail: 09/28/18 00:46 Resuscitation Status Routine Resuscitation Status: FULL: Full Resuscitation MAR Reviewed: Yes Vital Signs & Weight: Vital Signs (12 hours) Temp Pulse Resp BP BP Pulse Ox 10/02/18 09:31 74 153/69 H 10/02/18 09:30 153/69 H 10/02/18 08:00 97.5 F L 74 16 153/69 H 95 10/02/18 06:52 70 14 10/02/18 04:03 97.9 F 84 18 131/60 96 10/02/18 02:17 95 Weight Weight 167 lb 6.4 oz Most Recent Monitor Data Heart Rate from ECG 75 NIBP 114/64 NIBP BP-Mean 80 Respiration from ECG 21 SpO2 98 I&O: 10/01/18 10/02/18 10/03/18 06:59 06:59 06:59 Intake Total 1900 840 Output Total 1999 Balance 1900 -1160 Result Diagrams: 10/01/18 05:40 10/02/18 04:17 Additional Labs: Accuchecks 10/02/18 10/02/18 10/01/18 11:22 05:40 21:02 POC Glucose 280 H 229 H 209 H 10/01/18 10/01/18 10/01/18 17:11 11:31 05:55 POC Glucose 157 H 128 H 225 H 09/30/18 09/30/18 09/30/18 20:36 11:08 05:40 POC Glucose 218 H 238 H 217 H 09/29/18 20:36 POC Glucose 210 H Radiology Reviewed by me: Yes (CXR - improvement) EKG Reviewed by me: Yes (Tele SR) Phys Exam - Physical Examination Constitutional: NAD Respiratory: wheezing present Scat rales and rhonchi on right Cardiovascular: RRR, no rub Gastrointestinal: soft Musculoskeletal: no edema Neurological: moves all 4 limbs Dx/Plan - Plan DVT proph w/heparin, DVT proph w/SCDs 1. Acute hypoxic respiratory failure s/p NIPPV. 2. Community-acquired pneumonia, suspected pneumococcal. 3. Acute on chronic diastolic heart failure/volume overload. 4. End-stage renal disease, on hemodialysis. 5. Abdominal discomfort, improving. ?etio, RUQ - gall bladder distention. 6. Hypertensive urgency. 7. Obesity with a body mass index of 32.7. 8. Elevated troponin secondary to demand ischemia. PLAN: Cont Doxycycline with Nebs/O2 Cont current HTN meds Cont other meds as below Lantus 10 units x 1 then daily Review of Systems - Review of Systems Respiratory: negative: Cough, Dry, Shortness of Breath, Hemoptysis, SOB with Excertion, Pleuritic Pain, Sputum, Wheezing Cardiovascular: negative: chest pain, palpitations, orthopnea, paroxysmal nocturnal dyspnea, edema, light headedness, other - Medications/Allergies Allergies/Adverse Reactions: Allergies Allergy/AdvReac Type Severity Reaction Status Date / Time No Known Allergies Allergy Verified 05/25/18 10:49 Medications: Current Medications Acetaminophen (Tylenol) 650 mg PO Q4H PRN PRN Reason: Headache/Fever/Mild Pain (1-3) Last Admin: 09/29/18 03:30 Dose: 650 mg Albuterol/Ipratropium (Duoneb) 3 ml NEB Q2H PRN PRN Reason: SOB &/or Wheezing Albuterol/Ipratropium (Duoneb) 3 ml NEB [id number] [facility] Last Admin: 10/02/18 06:52 Dose: 3 ml Amlodipine Besylate (Norvasc) 10 mg PO DAILY [facility] Last Admin: 10/02/18 09:31 Dose: 10 mg Aspirin (Ecotrin) 81 mg PO DAILY [facility] Last Admin: 10/02/18 09:30 Dose: 81 mg Atorvastatin Calcium (Lipitor) 40 mg PO HS [facility] Last Admin: 10/01/18 20:48 Dose: 40 mg Bisacodyl (Dulcolax) 10 mg PO DAILYPRN PRN PRN Reason: Constipation Cholecalciferol (Vitamin D3) 2,000 units PO DAILY [facility] Last Admin: 10/02/18 09:30 Dose: 2,000 units Clonidine (Catapres) 0.2 mg PO BID [facility] Last Admin: 10/02/18 09:30 Dose: 0.2 mg Dextrose/Water (Dextrose 50%) 25 gm SLOW IVP PRN PRN PRN Reason: Hypoglycemia Doxycycline Hyclate (Vibramycin) 100 mg PO BID [facility] Last Admin: 10/02/18 09:30 Dose: 100 mg Famotidine (Pepcid) 20 mg PO 0900 [facility] Last Admin: 10/02/18 09:31 Dose: 20 mg Glucagon (Glucagon) 1 mg IM PRN PRN PRN Reason: Hypoglycemia Guaifenesin/Dextromethorphan (Robitussin Dm) 15 ml PO Q4H PRN PRN Reason: Cough Last Admin: 09/30/18 20:52 Dose: 15 ml Heparin Sodium (Porcine) (Heparin) 5,000 units SC BID [facility] Last Admin: 10/02/18 09:29 Dose: 5,000 units Hydralazine HCl (Apresoline) 10 mg SLOW IVP Q4H PRN PRN Reason: Hypertension Last Admin: 09/28/18 01:41 Dose: 10 mg Dextrose/Water (D5w) 1,000 mls @ 0 mls/hr IV .Q0M PRN PRN Reason: Hypoglycemia Insulin Human Lispro (Humalog) 0 units SC .MODERATE SLIDING SC PRN PRN Reason: Moderate Correctional Scale Last Admin: 10/02/18 11:34 Dose: 6 unit Insulin Human Lispro (Humalog) 0 units SC .BEDTIME SLIDING SC PRN PRN Reason: Bedtime Correctional Scale Last Admin: 09/30/18 20:56 Dose: 2 unit Lisinopril (Zestril) 10 mg PO DAILY [facility] Last Admin: 10/02/18 09:31 Dose: 10 mg Metoprolol Tartrate (Lopressor) 50 mg PO BID [facility] Last Admin: 10/02/18 09:30 Dose: 50 mg Miscellaneous Medication (Pharmacy To Dose) 1 each IVPB ONE PRN PRN Reason: Pharmacy to dose Stop: 10/08/18 16:59 Nitroglycerin (Nitrostat) 0.4 mg PO Q5MIN PRN PRN Reason: Chest Pain Ondansetron HCl (Zofran Odt) 4 mg PO Q6H PRN PRN Reason: Nausea/Vomiting Ondansetron HCl (Zofran) 4 mg IVP Q6H PRN PRN Reason: Nausea/Vomiting Senna/Docusate Sodium (Senokot S) 2 tab PO BID PRN PRN Reason: Constipation Sevelamer Carbonate (Renvela) 800 mg PO TID-[facility] Last Admin: 10/02/18 11:51 Dose: 800 mg Sodium Chloride (Flush - Normal Saline) 10 ml IVF Q12HR PRN PRN Reason: Saline Flush Last Admin: 10/02/18 09:31 Dose: 10 ml Sodium Chloride (Flush - Normal Saline) 10 ml IVF PRN PRN PRN Reason: Saline Flush Last Admin: 09/30/18 14:51 Dose: 10 ml Tramadol HCl (Ultram) 50 mg PO Q4H PRN PRN Reason: Pain Last Admin: 09/29/18 03:36 Dose: 50 mg
[2018-10-02] MEDS ORDERED: Insulin Glargine 10 UNITS in Pre-Filled Syringe 1 EACH SC SCH (13:00)
--- NOTE | 2018-10-02 15:10 | PRG ---
DATE OF SERVICE: 10/02/2018 SUBJECTIVE: Ms. Saldivar has no complaints. She says she is feeling better. OBJECTIVE: VITAL SIGNS: She is afebrile. Heart rate 74, blood pressure 153/69, respiratory rate 16, and oximetry is 95% on 2 L. LUNGS: Clear. HEART: Regular rhythm. ABDOMEN: Soft. Intake and output were slightly over -1 L. Electrolytes are normal. BUN is 28 and creatinine is 5.16. She is smiling and very cooperative. IMPRESSION: 1. Pneumonia. 2. Diastolic heart failure. 3. End-stage renal disease, on dialysis, with access in her left upper extremity. 4. Hypertension. 5. Demand ischemia. PLAN: Continue current medications. We will continue to follow. Job ID: [id number]
[2018-10-02] MEDS: Guaifenesin DM 100-10/5 ML UDCUP PO PRN (17:59)
[2018-10-02] MEDS: Atorvastatin Calcium 40 MG TAB PO SCH (21:37)
[2018-10-03 05:47] LABS: Anion Gap 19 mmol/L (10-20); BUN (Urea Nitrogen) 50 mg/dL (9.8-20.1); Calc. Creatinine Clearance 9 mL/min (70-130); Calcium 7.8 mg/dL (7.8-10.44); Carbon Dioxide 25 mmol/L (22-29); Chloride 92 mmol/L (98-107); Estimated GFR-MDRD 6; Glucose 188 mg/dL (70-105); Potassium 4.1 mmol/L (3.5-5.1); Sodium 132 mmol/L (136-145)
[2018-10-03] MEDS: Insulin Glargine 10 UNITS in Pre-Filled Syringe 1 EACH SC SCH (09:18)
[2018-10-03] MEDS: Sevelamer Carbonate 800 MG TAB PO SCH ×3 (09:19→16:22)
[2018-10-03] MEDS: Metoprolol Tartrate 50 MG TAB PO SCH ×2 (09:20→21:30)
[2018-10-03] MEDS: Doxycycline 100 MG CAP PO SCH ×2 (09:20→21:30)
[2018-10-03] MEDS: Amlodipine 10 MG TAB PO SCH (09:21)
[2018-10-03] MEDS: Lisinopril 10 MG TAB PO SCH (09:21)
[2018-10-03] MEDS: cloNIDine 0.1 MG TAB PO SCH ×2 (09:21→21:30)
[2018-10-03] MEDS: Heparin 5,000 UNITS/ML VIAL SC SCH ×2 (09:21→21:30)
[2018-10-03] MEDS: Famotidine 20 MG TAB PO SCH (09:21)
[2018-10-03] MEDS: Aspirin 81 mg Enteric Coated Tablet PO SCH (09:21)
[2018-10-03] MEDS: HumaLOG 300 UNITS/3 ML VIAL SC PRN (17:02)
--- NOTE | 2018-10-03 18:21 | PRG ---
DATE OF SERVICE: 10/03/2018 SUBJECTIVE: Ms. Saldivar sitting up in the chair. She is just coughing a lot, but says her breathing is overall better. OBJECTIVE: VITAL SIGNS: Her blood pressure is 142/80, pulse 70 and regular. LUNGS: Some diffuse rhonchi. No wheezing. CARDIAC: Normal S1 and normal S2. ABDOMEN: Soft and nontender. EXTREMITIES: There is no edema. ASSESSMENT: 1. Possible pneumonia. 2. End-stage renal disease. PLAN: 1. She is on antibiotics. 2. We will attempt to do stress testing tomorrow hopefully unless she is coughing too much that may prevent successfully. Job ID: [id number]
[2018-10-03] MEDS ORDERED: HumaLOG 300 UNITS/3 ML VIAL SC PRN (21:00)
--- NOTE | 2018-10-03 21:10 | PDOC.PN ---
- Subjective Encounter Start Date: 10/03/18 Encounter Start Time: 08:30 Patient seen and examined for Resp failure/Pneumonia. Intermittent coughing +. No new complaints. No overnight events - Objective Resuscitation Status - Order Detail: 09/28/18 00:46 Resuscitation Status Routine Resuscitation Status: FULL: Full Resuscitation MAR Reviewed: Yes Vital Signs & Weight: Vital Signs (12 hours) Temp Pulse Pulse Resp BP BP BP 10/03/18 18:55 67 16 10/03/18 16:20 97.9 F 69 18 142/80 H 10/03/18 14:37 69 134/62 10/03/18 12:37 76 20 10/03/18 12:12 98.8 F 71 18 151/92 H 10/03/18 09:21 71 147/69 H Pulse Ox 10/03/18 18:55 100 10/03/18 16:20 96 10/03/18 14:37 10/03/18 12:37 10/03/18 12:12 96 10/03/18 09:21 Weight Weight 160 lb Most Recent Monitor Data Heart Rate from ECG 75 NIBP 114/64 NIBP BP-Mean 80 Respiration from ECG 21 SpO2 98 I&O: 10/02/18 10/03/18 10/04/18 06:59 06:59 06:59 Intake Total 840 610 720 Output Total 2000 0 Balance -1160 610 720 Result Diagrams: 10/01/18 05:40 10/03/18 04:31 Additional Labs: Accuchecks 10/03/18 10/03/18 10/03/18 20:37 16:49 11:12 POC Glucose 94 198 H 246 H 10/03/18 05:29 POC Glucose 207 H EKG Reviewed by me: Yes (Tele SR) Phys Exam - Physical Examination Constitutional: NAD Respiratory: no wheezing B/L rhonchi with rales dai on Rt lung Cardiovascular: RRR, no rub Gastrointestinal: soft, non-tender, positive bowel sounds Neurological: moves all 4 limbs Dx/Plan - Plan respiratory therapy, DVT proph w/heparin, DVT proph w/SCDs 1. Acute hypoxic respiratory failure s/p NIPPV. 2. Community-acquired pneumonia, suspected pneumococcal. 3. Acute on chronic diastolic heart failure/volume overload. 4. End-stage renal disease, on hemodialysis. 5. Abdominal discomfort, improving. 6. Hypertensive urgency. 7. Obesity with a body mass index of 32.7. 8. Elevated troponin secondary to demand ischemia. PLAN: Cont Doxycycline Cont Nebs/O2 Cont current HTN meds Cont other meds as below Cont Lantus Stress test in AM Review of Systems - Review of Systems Gastrointestinal: negative: Nausea, Vomiting, Abdominal Pain, Diarrhea, Constipation, Melena, Hematochezia, Other - Medications/Allergies Allergies/Adverse Reactions: Allergies Allergy/AdvReac Type Severity Reaction Status Date / Time No Known Allergies Allergy Verified 05/25/18 10:49 Medications: Current Medications Acetaminophen (Tylenol) 650 mg PO Q4H PRN PRN Reason: Headache/Fever/Mild Pain (1-3) Last Admin: 09/29/18 03:30 Dose: 650 mg Albuterol/Ipratropium (Duoneb) 3 ml NEB Q2H PRN PRN Reason: SOB &/or Wheezing Albuterol/Ipratropium (Duoneb) 3 ml NEB [id number] Last Admin: 10/03/18 18:55 Dose: 3 ml Amlodipine Besylate (Norvasc) 10 mg PO DAILY [facility] Last Admin: 10/03/18 09:21 Dose: 10 mg Aspirin (Ecotrin) 81 mg PO DAILY [facility] Last Admin: 10/03/18 09:21 Dose: 81 mg Atorvastatin Calcium (Lipitor) 40 mg PO HS [facility] Last Admin: 10/02/18 21:37 Dose: 40 mg Bisacodyl (Dulcolax) 10 mg PO DAILYPRN PRN PRN Reason: Constipation Cholecalciferol (Vitamin D3) 2,000 units PO DAILY [facility] Last Admin: 10/03/18 09:21 Dose: 2,000 units Clonidine (Catapres) 0.2 mg PO BID [facility] Last Admin: 10/03/18 09:21 Dose: 0.2 mg Dextrose/Water (Dextrose 50%) 25 gm SLOW IVP PRN PRN PRN Reason: Hypoglycemia Doxycycline Hyclate (Vibramycin) 100 mg PO BID [facility] Last Admin: 10/03/18 09:20 Dose: 100 mg Famotidine (Pepcid) 20 mg PO 0900 [facility] Last Admin: 10/03/18 09:21 Dose: 20 mg Glucagon (Glucagon) 1 mg IM PRN PRN PRN Reason: Hypoglycemia Guaifenesin/Dextromethorphan (Robitussin Dm) 15 ml PO Q4H PRN PRN Reason: Cough Last Admin: 10/02/18 17:59 Dose: 15 ml Heparin Sodium (Porcine) (Heparin) 5,000 units SC BID [facility] Last Admin: 10/03/18 09:21 Dose: 5,000 units Hydralazine HCl (Apresoline) 10 mg SLOW IVP Q4H PRN PRN Reason: Hypertension Last Admin: 09/28/18 01:41 Dose: 10 mg Dextrose/Water (D5w) 1,000 mls @ 0 mls/hr IV .Q0M PRN PRN Reason: Hypoglycemia Insulin Glargine 10 units/ (Miscellaneous Medication) 0.1 mls @ 0 mls[id number] [place] Last Admin: 10/03/18 09:18 Dose: 0.1 mls Insulin Human Lispro (Humalog) 0 units SC .BEDTIME SLIDING SC PRN PRN Reason: Bedtime Correctional Scale Last Admin: 10/02/18 21:44 Dose: 2 unit Insulin Human Lispro (Humalog) 0 units SC .MILD SLIDING SCALE PRN PRN Reason: Mild Correctional Scale Lisinopril (Zestril) 10 mg PO DAILY [facility] Last Admin: 10/03/18 09:21 Dose: 10 mg Metoprolol Tartrate (Lopressor) 50 mg PO BID [facility] Last Admin: 10/03/18 09:20 Dose: 50 mg Miscellaneous Medication (Pharmacy To Dose) 1 each IVPB ONE PRN PRN Reason: Pharmacy to dose Stop: 10/08/18 16:59 Nitroglycerin (Nitrostat) 0.4 mg PO Q5MIN PRN PRN Reason: Chest Pain Ondansetron HCl (Zofran Odt) 4 mg PO Q6H PRN PRN Reason: Nausea/Vomiting Ondansetron HCl (Zofran) 4 mg IVP Q6H PRN PRN Reason: Nausea/Vomiting Senna/Docusate Sodium (Senokot S) 2 tab PO BID PRN PRN Reason: Constipation Sevelamer Carbonate (Renvela) 800 mg PO TID[facility] Last Admin: 10/03/18 16:22 Dose: 800 mg Sodium Chloride (Flush - Normal Saline) 10 ml IVF Q12HR PRN PRN Reason: Saline Flush Last Admin: 10/02/18 09:31 Dose: 10 ml Sodium Chloride (Flush - Normal Saline) 10 ml IVF PRN PRN PRN Reason: Saline Flush Last Admin: 09/30/18 14:51 Dose: 10 ml Tramadol HCl (Ultram) 50 mg PO Q4H PRN PRN Reason: Pain Last Admin: 09/29/18 03:36 Dose: 50 mg
[2018-10-03] MEDS: Atorvastatin Calcium 40 MG TAB PO SCH (21:29)
[2018-10-03] MEDS: Ondansetron PF 4 MG/2 ML Vial IVP PRN (22:48)
[2018-10-04] MEDS: Guaifenesin DM 100-10/5 ML UDCUP PO PRN (02:08)
[2018-10-04 05:13] LABS: #Eosinphils 0.2 thou/uL (0.0-0.7); #Lymphocytes 1.5 thou/uL (1.20-3.40); #Monocytes 0.3 thou/uL (0.11-0.59); #Neutrophils 3.6 thou/uL (1.40-6.50); %Basophils 0.3 % (0.0-1.0); %Eosinophils 3.6 % (0.0-10.0); %Lymphocytes 26.6 % (21.0-51.0); %Monocytes 5.8 % (0.0-10.0); %Neutrophils 63.8 % (42.0-75.0); Hemoglobin 10.7 g/dL (12.0-16.0); Mean Corpuscular HGB CONC 33.7 g/dL (32.0-36.0); Mean Corpuscular Hemoglobin 30.2 pg (27.0-31.0); Mean Corpuscular Volume 89.6 fL (78.0-98.0); Mean Platelet Volume 7.8 fL (7.4-10.4); Platelet Count 202 thou/uL (130-400); RBC Distribution Width 12.8 % (11.5-14.5); Red Blood Cell (RBC) Count 3.54 mill/uL (4.20-5.40); White Blood Cell (WBC) Count 5.6 thou/uL (4.8-10.8)
[2018-10-04 05:35] LABS: Anion Gap 23 mmol/L (10-20); BUN (Urea Nitrogen) 67 mg/dL (9.8-20.1); Calc. Creatinine Clearance 7 mL/min (70-130); Calcium 7.4 mg/dL (7.8-10.44); Carbon Dioxide 22 mmol/L (22-29); Chloride 90 mmol/L (98-107); Estimated GFR-MDRD 4; Glucose 137 mg/dL (70-105); Potassium 4.4 mmol/L (3.5-5.1); Sodium 131 mmol/L (136-145)
[2018-10-04] MEDS: Heparin 5,000 UNITS/ML VIAL SC SCH ×2 (09:45→21:07)
[2018-10-04] MEDS: Insulin Glargine 10 UNITS in Pre-Filled Syringe 1 EACH SC SCH (09:46)
[2018-10-04] MEDS: Sevelamer Carbonate 800 MG TAB PO SCH ×3 (09:46→16:48)
--- NOTE | 2018-10-04 09:47 | PRG ---
DATE OF SERVICE: 10/04/2018 RENAL MEDICINE SUBJECTIVE: Ms. Saldivar is a 57-year-old female, who was admitted for shortness of breath. Chest x-ray suggests a pneumonia. She is currently on IV antibiotics. In addition, the patient has also ? of diastolic dysfunction. Cardiology and Pulmonary are following this patient. I have scheduled in for her maintenance hemodialysis later this morning. Her cough still persistent, but the shortness of breath is improved. No complaints of chest pain or syncopal episode. OBJECTIVE: VITAL SIGNS: Blood pressure is noted at 137/64, heart rate 66, respiratory rate 20, temperature 98, pulse ox 98%. GENERAL: Awake, supine, and comfortable, not in overt distress. SKIN: Adequate turgor. HEENT: She has slightly pale conjunctivae. Anicteric sclerae. NECK: No neck mass. No carotid bruits. No JVD. CHEST: No deformities. LUNGS: Decreased breath sounds. HEART: Normal sinus rhythm. No murmurs, gallops, or rubs. ABDOMEN: Globular, soft, nontender. No masses. EXTREMITIES: No edema. No deformities. MEDICATIONS: Medications of October 04, 2018, was reviewed. LABORATORY DATA: Laboratories of October 04, 2018, white count 5.6 and hemoglobin 10.7. Sodium 131, potassium 4.4, chloride 90, carbon dioxide 22, BUN 67, creatinine 9.34, glucose 137, and calcium 7.4. ASSESSMENT AND PLAN: 1. End-stage renal disease, stable. We will continue current Wednesday, , and Wednesday dialysis. She is scheduled for 3-1/2 hour hemodialysis today. Again, max out fluid removal only as tolerated by the patient. 2. Pneumonia, currently on antibiotics. 3. Borderline anemia - hemoglobin and hematocrit have gone down. We will restart the patient on her Epogen at 7500 units subcu weekly. Overall, agree with current management. Job ID: [id number]
[2018-10-04] MEDS: Metoprolol Tartrate 50 MG TAB PO SCH ×2 (12:36→21:07)
[2018-10-04] MEDS: Doxycycline 100 MG CAP PO SCH (12:36)
[2018-10-04] MEDS: cloNIDine 0.1 MG TAB PO SCH ×2 (12:36→21:06)
[2018-10-04] MEDS: Aspirin 81 mg Enteric Coated Tablet PO SCH (14:14)
[2018-10-04] MEDS: Famotidine 20 MG TAB PO SCH (14:14)
[2018-10-04] MEDS: Amlodipine 10 MG TAB PO SCH (14:14)
[2018-10-04] MEDS: Lisinopril 10 MG TAB PO SCH (14:21)
--- NOTE | 2018-10-04 14:36 | PRG ---
DATE OF SERVICE: 10/04/2018 SUBJECTIVE: Ms. Saldivar was scheduled for stress test today, but we found she had a normal stress test done in April. The patient has had a normal ejection fraction on this admission. The patient's blood pressure is 142/67. She can be released home to follow up with dialysis cardiac pathology has been identified. Certainly, she could have underlying coronary artery disease. Therefore, medicines for blood pressure control and cholesterol appear appropriate. She is on atorvastatin and amlodipine as well as 81 mg of aspirin here on as needed basis. She is also on metoprolol and lisinopril. Job ID: [id number]
--- NOTE | 2018-10-04 16:12 | PRG ---
DATE OF SERVICE: 10/04/2018 SERVICE: Pulmonary Medicine. INTERVAL HISTORY: The patient is breathing comfortably. Denies any current chest pain, fevers, or chills. She is coughing. She cannot see her sputum. Otherwise, there has been no interval change to her condition. PHYSICAL EXAMINATION: VITAL SIGNS: Afebrile, pulse 73, blood pressure 151/81, respirations 17, and saturation 96% on 2 L nasal cannula. GENERAL: The patient is awake and alert, in no apparent distress. LUNGS: Decent air entry. There is a prolonged expiratory phase. I hear extensive rhonchi, as well as expiratory wheezing. Dependent crackles are noted. HEART: Normal rate, regular. ABDOMEN: Soft, nontender, and nondistended. Bowel sounds are positive. MUSCULOSKELETAL: No cyanosis or clubbing. There is no pitting in the bilateral lower extremities. NEUROLOGIC: Grossly nonfocal. LABORATORY DATA: WBC 5.6, hemoglobin 10.7, and platelets 202,000. Sodium 131, and roughly stable. Basic metabolic profile is significant for a BUN of 67, and a creatinine of 9.34. Blood cultures x2 and influenza A and B are negative. ASSESSMENT: 1. Acute hypoxic respiratory failure, improving. 2. Community-acquired pneumonia, possible. 3. Hypertensive emergency. 4. End-stage renal disease. 5. Type 2 diabetes mellitus. DISCUSSION AND PLAN: The patient is doing fine from a respiratory standpoint. We will continue to wean oxygen through time as tolerated. She had significant abrupt improvement in aeration in the right upper lobe. As such, this is most consistent with simple fluid overload. At this point, she has no further requirements for inpatient Pulmonary Critical Care opinion, and I will sign off. Please call with additional questions or concerns through time. Job ID: [id number]
--- NOTE | 2018-10-04 18:36 | PDOC.PN ---
- Subjective Encounter Start Date: 10/04/18 Encounter Start Time: 09:45 Patient seen and examined for SOB/Pneumonia. Cough and SOB improving. No new complaints. No overnight events - Objective Resuscitation Status - Order Detail: 09/28/18 00:46 Resuscitation Status Routine Resuscitation Status: FULL: Full Resuscitation MAR Reviewed: Yes Vital Signs & Weight: Vital Signs (12 hours) Temp Pulse Pulse Pulse Resp BP BP 10/04/18 18:28 68 18 10/04/18 16:45 98 F 79 16 10/04/18 14:21 164/72 H 10/04/18 14:14 73 10/04/18 14:12 98.5 F 73 17 10/04/18 12:36 164/72 H 10/04/18 10:37 78 70 149/68 H 10/04/18 07:44 97.8 F 68 15 10/04/18 07:10 10/04/18 07:08 66 20 BP BP BP Pulse Ox 10/04/18 18:28 94 L 10/04/18 16:45 148/73 H 98 10/04/18 14:21 10/04/18 14:14 10/04/18 14:12 151/81 H 96 10/04/18 12:36 10/04/18 10:37 142/70 H 10/04/18 07:44 142/67 H 96 10/04/18 07:10 98 10/04/18 07:08 98 Weight Weight 160 lb Most Recent Monitor Data Heart Rate from ECG 75 NIBP 114/64 NIBP BP-Mean 80 Respiration from ECG 21 SpO2 98 I&O: 10/03/18 10/04/18 10/05/18 06:59 06:59 06:59 Intake Total 610 980 Output Total 0 Balance 610 980 Result Diagrams: 10/04/18 04:31 10/04/18 04:31 Additional Labs: Accuchecks 10/04/18 10/04/18 10/04/18 17:15 11:15 05:23 POC Glucose 179 H 158 H 145 H 10/04/18 10/03/18 02:04 20:37 POC Glucose 139 H 94 EKG Reviewed by me: Yes (Tele SR) Phys Exam - Physical Examination Constitutional: NAD Respiratory: no wheezing Rt sided rales and rhonchi Cardiovascular: RRR, no rub Gastrointestinal: soft, positive bowel sounds Musculoskeletal: no edema Neurological: moves all 4 limbs Dx/Plan - Plan DVT proph w/SCDs 1. Acute hypoxic respiratory failure s/p NIPPV. 2. Community-acquired pneumonia, suspected pneumococcal. 3. Acute on chronic diastolic heart failure/volume overload. 4. End-stage renal disease, on HD. 5. Abdominal discomfort, improving. 6. Hypertensive urgency. 7. Obesity with a body mass index of 32.7. 8. Elevated troponin secondary to demand ischemia. PLAN: Cont Atbx/Nebs/O2 Stress test today Dialysis today Cont current meds as below AM labs Review of Systems - Review of Systems Respiratory: Cough, Dry, SOB with Excertion. negative: Shortness of Breath, Hemoptysis, Pleuritic Pain, Sputum, Wheezing Cardiovascular: negative: chest pain, palpitations, orthopnea, paroxysmal nocturnal dyspnea, edema, light headedness, other Gastrointestinal: negative: Nausea, Vomiting, Abdominal Pain, Diarrhea, Constipation, Melena, Hematochezia, Other - Medications/Allergies Allergies/Adverse Reactions: Allergies Allergy/AdvReac Type Severity Reaction Status Date / Time No Known Allergies Allergy Verified 05/25/18 10:49 Medications: Current Medications Acetaminophen (Tylenol) 650 mg PO Q4H PRN PRN Reason: Headache/Fever/Mild Pain (1-3) Last Admin: 09/29/18 03:30 Dose: 650 mg Albuterol/Ipratropium (Duoneb) 3 ml NEB Q2H PRN PRN Reason: SOB &/or Wheezing Albuterol/Ipratropium (Duoneb) 3 ml NEB [id number] Last Admin: 10/04/18 18:28 Dose: 3 ml Amlodipine Besylate (Norvasc) 10 mg PO DAILY [facility] Last Admin: 10/04/18 14:14 Dose: 10 mg Aspirin (Ecotrin) 81 mg PO DAILY [facility] Last Admin: 10/04/18 14:14 Dose: 81 mg Atorvastatin Calcium (Lipitor) 40 mg PO HS [facility] Last Admin: 10/03/18 21:29 Dose: 40 mg Bisacodyl (Dulcolax) 10 mg PO DAILYPRN PRN PRN Reason: Constipation Cholecalciferol (Vitamin D3) 2,000 units PO DAILY [facility] Last Admin: 10/04/18 14:14 Dose: 2,000 units Clonidine (Catapres) 0.2 mg PO BID [facility] Last Admin: 10/04/18 12:36 Dose: Not Given Dextrose/Water (Dextrose 50%) 25 gm SLOW IVP PRN PRN PRN Reason: Hypoglycemia Famotidine (Pepcid) 20 mg PO 0900 [facility] Last Admin: 10/04/18 14:14 Dose: 20 mg Glucagon (Glucagon) 1 mg IM PRN PRN PRN Reason: Hypoglycemia Heparin Sodium (Porcine) (Heparin) 5,000 units SC BID [facility] Last Admin: 10/04/18 09:45 Dose: 5,000 units Hydralazine HCl (Apresoline) 10 mg SLOW IVP Q4H PRN PRN Reason: Hypertension Last Admin: 09/28/18 01:41 Dose: 10 mg Dextrose/Water (D5w) 1,000 mls @ 0 mls/hr IV .Q0M PRN PRN Reason: Hypoglycemia Insulin Glargine 10 units/ (Miscellaneous Medication) 0.1 mls @ 0 mls/hr SC QAM [facility] Last Admin: 10/04/18 09:46 Dose: 0.1 mls Insulin Human Lispro (Humalog) 0 units SC .BEDTIME SLIDING SC PRN PRN Reason: Bedtime Correctional Scale Last Admin: 10/02/18 21:44 Dose: 2 unit Insulin Human Lispro (Humalog) 0 units SC .MILD SLIDING SCALE PRN PRN Reason: Mild Correctional Scale Lisinopril (Zestril) 10 mg PO DAILY [facility] Last Admin: 10/04/18 14:21 Dose: 10 mg Metoprolol Tartrate (Lopressor) 50 mg PO BID [facility] Last Admin: 10/04/18 12:36 Dose: Not Given Miscellaneous Medication (Pharmacy To Dose) 1 each IVPB ONE PRN PRN Reason: Pharmacy to dose Stop: 10/08/18 16:59 Nitroglycerin (Nitrostat) 0.4 mg PO Q5MIN PRN PRN Reason: Chest Pain Ondansetron HCl (Zofran Odt) 4 mg PO Q6H PRN PRN Reason: Nausea/Vomiting Ondansetron HCl (Zofran) 4 mg IVP Q6H PRN PRN Reason: Nausea/Vomiting Last Admin: 10/03/18 22:48 Dose: 4 mg Senna/Docusate Sodium (Senokot S) 2 tab PO BID PRN PRN Reason: Constipation Sevelamer Carbonate (Renvela) 800 mg PO TID-[facility] Last Admin: 10/04/18 16:48 Dose: 800 mg Sodium Chloride (Flush - Normal Saline) 10 ml IVF Q12HR PRN PRN Reason: Saline Flush Last Admin: 10/02/18 09:31 Dose: 10 ml Sodium Chloride (Flush - Normal Saline) 10 ml IVF PRN PRN PRN Reason: Saline Flush Last Admin: 09/30/18 14:51 Dose: 10 ml Tramadol HCl (Ultram) 50 mg PO Q4H PRN PRN Reason: Pain Last Admin: 09/29/18 03:36 Dose: 50 mg
[2018-10-04] MEDS: Atorvastatin Calcium 40 MG TAB PO SCH (21:06)
[2018-10-05] MEDS ORDERED: Guaifenesin DM 100-10/5 ML UDCUP PO PRN (01:58)
[2018-10-05 05:50] LABS: Anion Gap 25 mmol/L (10-20); BUN (Urea Nitrogen) 80 mg/dL (9.8-20.1); Calc. Creatinine Clearance 6 mL/min (70-130); Calcium 6.7 mg/dL (7.8-10.44); Carbon Dioxide 20 mmol/L (22-29); Chloride 88 mmol/L (98-107); Estimated GFR-MDRD 4; Glucose 153 mg/dL (70-105); Potassium 4.2 mmol/L (3.5-5.1); Sodium 129 mmol/L (136-145)
[2018-10-05] MEDS ORDERED: Epoetin (ESRD) 20,000 UNITS/ML SC SCH (10:30)
--- NOTE | 2018-10-05 10:44 | PRG ---
DATE OF SERVICE: 10/05/2018 RENAL MEDICINE SUBJECTIVE: Ms. Saldivar is a 57-year-old female with ESRD and being followed by the Renal Service for maintenance hemodialysis. She is currently undergoing dialysis. We are trying to max out fluid removal as tolerated. She still has an occasional cough. Pulmonary has evaluated this patient. The consideration for pneumonia was considered at one time. However, the feeling now is that this may simply be a volume overload. Her breathing has actually improved. No other complaints today. She is at the dialysis and I am at the bedside supervising her dialysis. OBJECTIVE: VITAL SIGNS: Blood pressure is noted at 128/58, heart rate 69, respiratory rate 16, temperature 97.8, and pulse ox 94%. GENERAL: Awake, alert, and comfortable, not in overt distress. SKIN: Adequate turgor. HEENT: Pinkish conjunctivae. Anicteric sclerae. NECK: No neck mass. No carotid bruits. No JVD. CHEST: No deformities. LUNGS: Decreased breath sounds. HEART: Normal sinus rhythm. No murmur. No gallops. No rubs. ABDOMEN: Globular, soft, nontender. No masses. EXTREMITIES: Positive for edema, but no deformities. MEDICATIONS: Medications of October 04, 2018, were reviewed. LABORATORY DATA: Laboratories of October 04, 2018, white count 5.6, hemoglobin 10.7. potassium 4.2, chloride 88, carbon dioxide 20, BUN 80, creatinine 10.93, glucose 153, calcium is 6.7. Hemoglobin 10.7. ASSESSMENT AND PLAN: 1. Mild hypocalcemia - we will start the patient on Tums 500 mg tablet one tablet t.i.d. with meals. We will also recheck a PTH tomorrow. 2. End-stage renal disease, stable, continuing Wednesday, , and Wednesday dialysis. Please note, she is undergoing dialysis today. It seems she is infiltrated one-third of the way with her dialysis yesterday. The AV fistula is functional today and we have a good blood flow. We will also max out her fluid removal. 3. Borderline anemia. We will start the Epogen at 7500 units subcu every week. 4. Shortness of breath and cough - pneumonia versus congestive heart failure - the feeling by Pulmonary Service is that this is most likely is fluid overload. For this reason, we are maxing fluid removal. Overall, I agree with current management. Recheck basic metabolic and CBC in a.m. Job ID: [id number] MTDD
[2018-10-05] MEDS: Ondansetron PF 4 MG/2 ML Vial IVP PRN (12:51)
[2018-10-05] MEDS: Sevelamer Carbonate 800 MG TAB PO SCH ×2 (14:01→14:52)
[2018-10-05] MEDS: Lisinopril 10 MG TAB PO SCH (14:51)
[2018-10-05] MEDS: Famotidine 20 MG TAB PO SCH (14:51)
[2018-10-05] MEDS: Metoprolol Tartrate 50 MG TAB PO SCH (14:52)
[2018-10-05] MEDS: Heparin 5,000 UNITS/ML VIAL SC SCH (14:52)
[2018-10-05] MEDS: Aspirin 81 mg Enteric Coated Tablet PO SCH (14:52)
[2018-10-05] MEDS: Amlodipine 10 MG TAB PO SCH (14:52)
[2018-10-05] MEDS: Insulin Glargine 10 UNITS in Pre-Filled Syringe 1 EACH SC SCH (14:54)
[2018-10-05] MEDS: cloNIDine 0.1 MG TAB PO SCH (14:58)
[2018-10-05] MEDS: Calcium Carbonate 500 MG ChewTAB PO SCH (14:58)
--- NOTE | 2018-10-05 16:00 | DIS ---
DATE OF ADMISSION: 09/27/2018 DATE OF DISCHARGE: 10/05/2018 DISCHARGE DISPOSITION: Home with [facility]. DISCHARGE MEDICATIONS: 1. Lipitor 40 mg at bedtime. 2. Albuterol inhaler as needed. 3. Doxycycline 100 mg b.i.d. for next 4 days. All other home medications were resumed. BRIEF HOSPITAL COURSE: The patient is a 57-year-old female with end-stage renal disease, on hemodialysis, presented to the emergency room with shortness of breath and cough. Please refer to the history and physical for further details. The patient was admitted to the hospital with a diagnosis of shortness of breath and cough secondary to community-acquired pneumonia. She was started on broad-spectrum antibiotics. She was evaluated by Cardiology, Dr. White due to on and off chest discomfort. Later on during the hospitalization, the patient developed worsening shortness of breath requiring noninvasive positive pressure ventilation. She was transferred to CCU. Later on, she was transferred back to telemetry unit. She is currently on oral doxycycline, which will be continued. Her dialysis access did not work yesterday. She is currently undergoing hemodialysis and will be discharged. She has been cleared by consultants for discharge. FINAL DIAGNOSES: 1. Acute hypoxic respiratory failure, status post noninvasive positive pressure ventilation. 2. Community-acquired pneumonia, suspected pneumococcal. 3. Acute on chronic diastolic heart failure/volume overload. 4. End-stage renal disease, on hemodialysis. 5. Abdominal discomfort of unclear etiology. The patient was evaluated by Gastroenterology, Dr. Nieves. The right upper quadrant ultrasound showed gallbladder distention without any acute findings. Her abdominal discomfort has improved. 6. Hypertensive urgency, improved. 7. Obesity with a BMI of 32.7. 8. Elevated troponin, secondary to demand ischemia. 9. Trace tricuspid regurgitation. 10. Mild mitral regurgitation. 11. Mild concentric left ventricular hypertrophy. 12. Chronic anemia, probably secondary to renal insufficiency. 13. Hyponatremia. 14. Dyslipidemia. Started on statin. Total cholesterol was 223 with LDL 140 and triglycerides 290. PLAN: Plan of care was discussed with the patient in detail. She stated understanding. Job ID: [id number]
[2018-10-06] MEDS: Sevelamer Carbonate 800 MG TAB PO SCH ×2 (00:38→13:59)
[2018-10-06] MEDS: Heparin 5,000 UNITS/ML VIAL SC SCH ×3 (00:39→14:00)
[2018-10-06] MEDS: cloNIDine 0.1 MG TAB PO SCH ×2 (00:39→14:00)
[2018-10-06] MEDS: Calcium Carbonate 500 MG ChewTAB PO SCH ×2 (00:39→13:59)
[2018-10-06] MEDS: Atorvastatin Calcium 40 MG TAB PO SCH ×2 (00:39→01:06)
[2018-10-06] MEDS: Metoprolol Tartrate 50 MG TAB PO SCH ×3 (00:40→14:01)
[2018-10-06 07:42] VITALS: BP 124/65; TEMP 98.3
[2018-10-06 08:55] LABS: #Eosinphils 0.2 thou/uL (0.0-0.7); #Lymphocytes 1.2 thou/uL (1.20-3.40); #Monocytes 0.5 thou/uL (0.11-0.59); #Neutrophils 3.6 thou/uL (1.40-6.50); %Basophils 0.5 % (0.0-1.0); %Eosinophils 2.9 % (0.0-10.0); %Lymphocytes 22.3 % (21.0-51.0); %Monocytes 9.3 % (0.0-10.0); %Neutrophils 64.9 % (42.0-75.0); Hemoglobin 12.6 g/dL (12.0-16.0); Mean Corpuscular HGB CONC 33.9 g/dL (32.0-36.0); Mean Corpuscular Hemoglobin 30.5 pg (27.0-31.0); Mean Platelet Volume 7.5 fL (7.4-10.4); Platelet Count 283 thou/uL (130-400); Red Blood Cell (RBC) Count 4.12 mill/uL (4.20-5.40); White Blood Cell (WBC) Count 5.5 thou/uL (4.8-10.8)
[2018-10-06 09:16] LABS: Anion Gap 20 mmol/L (10-20); BUN (Urea Nitrogen) 30 mg/dL (9.8-20.1); Calc. Creatinine Clearance 10 mL/min (70-130); Calcium 8.3 mg/dL (7.8-10.44); Carbon Dioxide 25 mmol/L (22-29); Chloride 93 mmol/L (98-107); Estimated GFR-MDRD 6; Glucose 143 mg/dL (70-105); Sodium 134 mmol/L (136-145)
[2018-10-06] MEDS: Aspirin 81 mg Enteric Coated Tablet PO SCH (13:59)
[2018-10-06] MEDS: Amlodipine 10 MG TAB PO SCH (13:59)
[2018-10-06] MEDS: Famotidine 20 MG TAB PO SCH (14:00)
[2018-10-06] MEDS: Insulin Glargine 10 UNITS in Pre-Filled Syringe 1 EACH SC SCH (14:01)
[2018-10-06] MEDS: Lisinopril 10 MG TAB PO SCH (14:01)
== END 2018-10-06 09:04 | disposition home health service (06) | DRG 193 ==
LOC: ERS 20:21 → 2NO 22:34 → CCU 09-29 03:14 → 2NO 09-29 17:09 → T4-A 10-05 23:37
PROVIDERS: ADMIT Internal Medicine; ATTEND Internal Medicine
PROC: 5A09357 Assistance with Respiratory Ventilation, Less than 24 Consecutive Hours, Continuous Positive Airway Pressure (ICD-10-PCS; principal; 2018-09-27)
PROC: 5A1D70Z Performance of Urinary Filtration, Intermittent, Less than 6 Hours Per Day (ICD-10-PCS; 2018-10-05)
DX: J18.9 Pneumonia, unspecified organism (principal); J96.01 Acute respiratory failure with hypoxia; I50.33 Acute on chronic diastolic (congestive) heart failure; N18.6 End stage renal disease; I13.2 Hypertensive heart and chronic kidney disease with heart failure and with stage 5 chronic kidney disease, or end stage renal disease; I24.8 Other forms of acute ischemic heart disease; K62.5 Hemorrhage of anus and rectum; Z99.2 Dependence on renal dialysis; I16.0 Hypertensive urgency; E66.9 Obesity, unspecified; Z68.32 Body mass index [BMI] 32.0-32.9, adult; I36.1 Nonrheumatic tricuspid (valve) insufficiency; D63.1 Anemia in chronic kidney disease; E78.5 Hyperlipidemia, unspecified; E11.22 Type 2 diabetes mellitus with diabetic chronic kidney disease; Z79.84 Long term (current) use of oral hypoglycemic drugs; Z79.82 Long term (current) use of aspirin; E78.00 Pure hypercholesterolemia, unspecified; E83.51 Hypocalcemia
CPT/HCPCS: 36415; 36416; 71045; 71046; 74018; 76705; 80048; 80053; 80061; 80202; 82550; 82553; 83970; 84484; 85025; 87040; 87804; 90471; 90670; 90935; 93005; 93306; 94640; 94660; 94760; 96365; 96367; G0009; G0257; G8978-GP-CK; G8979-GP-CJ; J0360; J0456; J0696; J1644; J2405; J2543; J3370; J7050; J7620; Q4081

== ENCOUNTER 2018-10-07 15:05 | Observation (INO) | payer MEDICARE, MEDICAID ==
[2018-10-07 15:40] LABS: #Eosinphils 0.1 thou/uL (0.0-0.7); #Monocytes 0.8 thou/uL (0.11-0.59); #Neutrophils 5.2 thou/uL (1.40-6.50); %Basophils 0.2 % (0.0-1.0); %Eosinophils 1.6 % (0.0-10.0); %Lymphocytes 24.4 % (21.0-51.0); %Monocytes 10.1 % (0.0-10.0); %Neutrophils 63.7 % (42.0-75.0); Hemoglobin 13.7 g/dL (12.0-16.0); Mean Corpuscular HGB CONC 32.9 g/dL (32.0-36.0); Mean Corpuscular Volume 91.2 fL (78.0-98.0); Mean Platelet Volume 7.5 fL (7.4-10.4); Platelet Count 329 thou/uL (130-400); Red Blood Cell (RBC) Count 4.55 mill/uL (4.20-5.40); White Blood Cell (WBC) Count 8.1 thou/uL (4.8-10.8)
--- NOTE | 2018-10-07 15:50 | RAD ---
CHEST ONE VIEW: HISTORY: Dyspnea. COMPARISON: Radiograph from 10/01/2018. FINDINGS: There has been mild interval improvement in the right upper lobe air space opacity. Heart size is en larged. No pneumothorax or large effusion. IMPRESSION: Mild interval improvement, right upper lobe air space opacity. POS: TPC
[2018-10-07] MEDS ORDERED: Albuterol Sulfate 2.5 mg/0.5 ml Neb ONE (16:02)
[2018-10-07 16:04] LABS: CK (CPK) 291 U/L (29-168); Lipase 151 U/L (8-78)
[2018-10-07 16:14] LABS: ALT (SGPT) 33 U/L (8-55); AST (SGOT) 46 U/L (5-34); Albumin 4.4 g/dL (3.5-5.0); Alkaline Phosphatase 173 U/L (40-150); Anion Gap 22 mmol/L (10-20); BUN (Urea Nitrogen) 29 mg/dL (9.8-20.1); Bilirubin, Total 0.4 mg/dL (0.2-1.2); Calc. Creatinine Clearance 0 mL/min (70-130); Calcium 9.6 mg/dL (7.8-10.44); Carbon Dioxide 28 mmol/L (22-29); Chloride 92 mmol/L (98-107); Estimated GFR-MDRD 7; Globulin 5.2 g/dL (2.4-3.5); Glucose 202 mg/dL (70-105); Protein, Total 9.6 g/dL (6.0-8.3); Sodium 138 mmol/L (136-145)
[2018-10-07] MEDS ORDERED: Dexamethasone 4 mg/ml Vial ONE (16:14)
[2018-10-07 16:21] LABS: Actual Bicarbonate (HCO3a) 33.1 mEq/L (22-28); Analyzer IN Cardio ER; Base Excess (BEa) 7.5 mEq/L (-2.0 to +3.0); CO2 Tension 50.5 mmHg (35.0-45.0); Carboxyhemoglobin (COHb) 0.6 gm% (0.0-3.0); Hemoglobin (Hb) 12.6 g/dL (12.0-16.0); O2 Tension (PaO2) 62.7 mmHg (80.0-100.0); Potassium - ABG Lab 3.74 mmol/L (3.70-5.30); pH, Arterial 7.43 (7.35-7.45)
[2018-10-07 16:23] LABS: ALV-art Gradient 23.905 (0-20)
[2018-10-07 16:46] LABS: Bilirubin Negative (Negative); Blood, Urine Small (Negative); Clarity CLEAR (Clear); Glucose, Urine (Dipstick) 250 mg/dL (Negative); Leukocyte Negative (Negative); Nitrite Negative (Negative); Protein, Urine (Dipstick) 300 mg/dL (Neg-Trace); Specific Gravity, Urine 1.014 (1.002-1.036); Urobilinogen 0.2 mg/dL (0.2-1.0); pH, Urine 6.5 (5.0-9.0)
[2018-10-07 16:48] LABS: Bacteria/HPF None Seen HPF (None Seen); Hyaline Casts/LPF 0-3 HYALINE CAST LPF (0-3 Hyaline); Pathc Cast-AUWi Flag 0.29 (0-2.49); RBC/HPF 0-3 HPF (0-3); Squamous Epithelial 0-3 HPF (0-3); WBC/HPF 0-3 HPF (0-3)
[2018-10-07 16:54] LABS: CKMB 3.1 ng/mL (0-6.6)
[2018-10-07] MEDS ORDERED: Magnesium 2 GM/50 ML BAG (IN WATER) ONE (17:01)
--- NOTE | 2018-10-07 17:38 | CT ---
CTA THORAX WITH CONTRAST: 10/07/18 (Computed Tomographic Angiography, chest(noncoronary) with contrast material, and image postprocessin g) (PE protocol) HISTORY: 57-year-old female with elevated D-dimer and cough. TECHNIQUE: IV injection of iodinated contrast: 100 mL Isovue 370. Scan acquisition timing attempted to coincide with iodinated contrast bolus reaching maximal density in pulmonary arteries. 3D MIP reconstructions. FINDINGS: There is no pulmonary thromboembolism. No thoracic aortic aneurysm, dissection or rupture. No pleural effusion or pneumothorax. No mediastinal or hilar lymphadenopathy. The gallbladder is distended. The re is no pericholecystic edema. No consolidation. Subsegmental atelectasis at left lower lobe. No bro nchiectasis. IMPRESSION: 1. No pulmonary thromboembolism. 2. No acute intrathoracic major findings. 3. Distended gallbladder. ronak[] POS: SALLY
[2018-10-07 18:42] VITALS: BMI 39.8
[2018-10-07] MEDS ORDERED: Ondansetron ODT 4 MG TAB SL PRN (18:42)
[2018-10-07] MEDS ORDERED: Ondansetron PF 4 MG/2 ML Vial IVP PRN ×2 (18:42→19:19)
[2018-10-07] MEDS ORDERED: Ondansetron ODT 4 MG TAB PO PRN (19:19)
[2018-10-07] MEDS ORDERED: traMADol HCl 50 MG TAB PO PRN (19:19)
[2018-10-07] MEDS ORDERED: Acetaminophen 500 MG TAB PO PRN (19:19)
[2018-10-07] MEDS ORDERED: Famotidine 20 MG TAB PO SCH (21:00)
[2018-10-07] MEDS ORDERED: Dexamethasone 4 mg/ml Vial SLOW IVP SCH (21:00)
[2018-10-07] MEDS: cloNIDine 0.2 MG TAB PO SCH (21:53)
[2018-10-07] MEDS: Metoprolol Tartrate 100 MG TAB PO SCH (21:53)
[2018-10-07] MEDS: Doxycycline 100 MG CAP PO SCH (21:54)
--- NOTE | 2018-10-08 02:26 | HP ---
PRIMARY CARE PROVIDER: Dr. Gregory. PRIMARY MARGARINE MAKER: Dr. Td Donahue. CHIEF COMPLAINT: General weakness and abdominal pain. HISTORY OF PRESENT ILLNESS: This is a 57-year-old female, who was recently admitted to [facility] from 09/28/2018 to 10/05/2018 for a multitude of conditions including suspected community-acquired bacterial pneumonia as well as acute hypoxic respiratory failure requiring noninvasive mechanical ventilation transiently. The patient was also treated for diastolic heart failure and volume overload and underwent maintenance hemodialysis during her hospital course. The daughter reports the patient has had complaints of general weakness and body aches over the last 48 hours. No specific documented fever, chills, diarrhea, or dysuria. The patient underwent hemodialysis prior to this evaluation. The daughter reports the patient has been tolerating regular oral intake, however, experienced nausea and emesis in the last 24 hours. No specific new medications other than doxycycline, which was prescribed for suspected pneumonia on discharge 10/05/2018. The daughter reports the patient has been compliant with her regular chronic medications. In the emergency room, the patient underwent general evaluation including chest imaging showing mild improvement in right upper lobe airspace opacity. CT angiogram of the chest was also performed, showing no evidence for pulmonary embolus or acute intrathoracic findings. The patient was noted with a distended gallbladder and screening metabolic profile showed an elevated lipase of 151. The patient received magnesium sulfate, DuoNebs, albuterol sulfate, and Decadron in the emergency room, and was transferred to the observation unit for further evaluation. PAST MEDICAL HISTORY: 1. Status post acute hypoxic respiratory failure, likely secondary to community-acquired pneumonia treated 09/28/2018 through 10/05/2018. 2. Chronic diastolic heart failure. 3. End-stage renal disease with hemodialysis. 4. Obesity. 5. Chronic elevated troponin I. 6. Chronic anemia secondary to chronic kidney disease. 7. Dyslipidemia. PAST SURGICAL HISTORY: 1. Status post hysterectomy. 2. Status post section x5. 3. Status post AV fistula placement in the left upper extremity. CURRENT MEDICATIONS: 1. Enteric-coated aspirin 81 mg p.o. daily. 2. Lipitor 40 mg p.o. at bedtime. 3. Albuterol sulfate 1 to 2 puffs inhaled q.4 hours p.r.n. 4. Doxycycline 100 mg p.o. b.i.d. 5. Amlodipine 10 mg p.o. daily. 6. Vitamin D3, 2000 units p.o. daily. 7. Catapres 0.2 mg p.o. b.i.d. 8. Zestril 10 mg p.o. daily. 9. Metoprolol tartrate 100 mg p.o. b.i.d. 10. Renvela 800 mg p.o. t.i.d. 11. Tramadol 50 mg p.o. q.4 hours p.r.n. pain. ALLERGIES: NO KNOWN DRUG ALLERGIES. FAMILY HISTORY: Positive for hypertension and diabetes mellitus. SOCIAL HISTORY: The patient resides in the [facility]. No current alcohol, tobacco, or illicit drug use. REVIEW OF SYSTEMS: CONSTITUTIONAL: Negative for weight loss or gain, ability to conduct usual activities. SKIN: Negative for rash, itching. EYES: Negative for double vision, pain. ENT/MOUTH: Negative for nose bleeding, neck stiffness, pain, tenderness. CARDIOVASCULAR: Negative for palpitations, dyspnea on exertion, orthopnea. RESPIRATORY: Negative for shortness of breath, wheezing, cough, hemoptysis, fever or night sweats. GASTROINTESTINAL: Negative for poor appetite, abdominal pain, heartburn, nausea, vomiting, constipation, or diarrhea. GENITOURINARY: Negative for urgency, frequency, dysuria, nocturia. MUSCULOSKELETAL: Negative for pain, swelling. NEUROLOGIC/PSYCHIATRIC: Negative for anxiety, depression. ALLERGY/IMMUNOLOGIC: Negative for skin rash, bleeding tendency. Otherwise negative except as stated per HPI. PHYSICAL EXAMINATION: VITAL SIGNS: Currently, blood pressure 192/80, pulse 87, respiratory rate is 20, temperature 98.5 degrees Fahrenheit, and O2 saturation 98% on room air. GENERAL APPEARANCE: This is a 57-year-old female, sleeping on the hospital bed, arouses to questions, in no acute distress. HEENT: Pupils are equal, round, reactive to light and accommodation. Extraocular muscles are intact. No scleral icterus. No conjunctival injection. Nares patent. OP is clear. Teeth in fair repair. NECK: Supple. No cervical adenopathy. No thyromegaly. No carotid bruits. No JVD appreciated. Cervical spine with full active and passive range of motion. No meningeal signs appreciated. CHEST: Diminished breath sounds in the bases bilaterally. CARDIOVASCULAR: S1 and S2 without noted murmur, rub, or gallop. ABDOMEN: Obese with tenderness to palpation in the mid epigastric region. Bowel sounds are positive in all four quadrants. Landmarks are difficult to palpate due to the patient's body habitus. EXTREMITIES: Warm and dry with fair turgor. No clubbing, cyanosis, or asymmetric edema appreciated. Pulses palpable distally at the dorsalis pedis, posterior tibial, and popliteal arteries bilaterally. Capillary refill less than 2 seconds. NEUROLOGIC: Cranial nerves 2 through 12 are grossly intact. No focal or lateralizing signs appreciated. PERTINENT LAB AND X-RAY FINDINGS: Sodium 138, potassium 4.0, chloride 92, CO2 of 28, BUN 29, creatinine 5.87, and glucose 202. Lactic acid level 1.8. AST 46, ALT of 33, alkaline phosphatase 173, lipase 151, total CK of 291, and troponin I 0.037. BNP 160, previously noted 719 on 08/11/2018. CBC within normal limits. Influenza A/B antigen dated 10/07/2018, negative. Portable chest x-ray dated 10/07/2018, showed improvement in right upper lobe airspace opacity. CT angiogram of the chest dated 10/07/2018, showed no evidence for pulmonary embolus. No acute intrathoracic findings noted. Distended gallbladder noted. EKG dated 10/07/2018 by my interpretation shows sinus tachycardia with heart rates in the low 100s. Attenuated R-waves noted in the precordial leads. Left axis deviation noted. No acute ST-T wave changes appreciated. ASSESSMENT AND PLAN: 1. Abdominal pain. The patient will be observed on the medical floor. Question of mild pancreatitis given elevated lipase at 151. We will place on clear liquids and repeat lipase in the a.m. Consider repeat abdominal ultrasound to assess right upper quadrant. Continue general supportive management. 2. End-stage renal disease with hemodialysis. We will consult Nephrology Service for timing of the next hemodialysis session. No current evidence to suggest acute volume overload necessitating urgent hemodialysis. 3. Hypertension. Resume home antihypertensive regimen and monitor clinical response. 4. Generalized weakness. Questionable etiology. Suspect multifactorial given the patient's comorbid status and deconditioned state. Obtain walking program evaluation. 5. Community-acquired bacterial pneumonia. Appears to be resolving on chest imaging and CT findings. Continue supportive management. DuoNebs q.4 hours p.r.n. 6. Prophylaxis. SCDs while in bed. Pepcid 20 mg p.o. b.i.d. 7. Code status is full. Surrogate medical decision maker is the patient's daughter. Job ID: [id number]
[2018-10-08 05:53] LABS: ALT (SGPT) 22 U/L (8-55); AST (SGOT) 26 U/L (5-34); Albumin 3.6 g/dL (3.5-5.0); Alkaline Phosphatase 147 U/L (40-150); Anion Gap 19 mmol/L (10-20); BUN (Urea Nitrogen) 46 mg/dL (9.8-20.1); Bilirubin, Total 0.3 mg/dL (0.2-1.2); Calc. Creatinine Clearance 9 mL/min (70-130); Calcium 8.5 mg/dL (7.8-10.44); Carbon Dioxide 26 mmol/L (22-29); Chloride 89 mmol/L (98-107); Estimated GFR-MDRD 6; Globulin 4.1 g/dL (2.4-3.5); Glucose 366 mg/dL (70-105); Lipase 101 U/L (8-78); Potassium 4.6 mmol/L (3.5-5.1); Protein, Total 7.7 g/dL (6.0-8.3); Sodium 129 mmol/L (136-145)
[2018-10-08 06:01] LABS: Hemoglobin 11.8 g/dL (12.0-16.0); Mean Corpuscular HGB CONC 32.4 g/dL (32.0-36.0); Mean Corpuscular Hemoglobin 29.5 pg (27.0-31.0); Mean Corpuscular Volume 90.9 fL (78.0-98.0); Mean Platelet Volume 7.6 fL (7.4-10.4); Platelet Count 273 thou/uL (130-400); RBC Distribution Width 12.9 % (11.5-14.5); Red Blood Cell (RBC) Count 3.99 mill/uL (4.20-5.40); White Blood Cell (WBC) Count 6.3 thou/uL (4.8-10.8)
[2018-10-08 06:02] LABS: Band 3 % (5-11); Lymphocytes 13 % (21-51); MDiff Complete? YES; Monocytes 5 % (0-10); Neutrophil 79 % (42-75); PLT Morphology Comment Appears Adequate
--- NOTE | 2018-10-08 07:33 | PDOC.PN ---
- Subjective Encounter Start Date: 10/08/18 Encounter Start Time: 07:33 Subjective: feels ok.still w mild Abd pain -: no N/V/D/ab;le to eat well -: ambulating.NL BM - Objective Resuscitation Status - Order Detail: 10/07/18 19:13 Resuscitation Status Routine Resuscitation Status: FULL: Full Resuscitation MAR Reviewed: Yes Vital Signs & Weight: Vital Signs (12 hours) Temp Pulse Resp BP BP Pulse Ox 10/08/18 03:35 97.6 F 75 16 121/60 100 10/07/18 23:13 97.7 F 84 20 134/68 95 10/07/18 21:53 163/77 H Weight Weight 159 lb 3.2 oz Result Diagrams: 10/08/18 05:10 10/08/18 05:10 Additional Labs: Accuchecks 10/08/18 10/07/18 05:50 20:43 POC Glucose 323 H 361 H Microbiology 10/07/18 16:09 Nasal swab Influenza Types A,B Direct EIA - Final 10/07/18 15:21 Venous blood - Right Hand Blood Culture - Preliminary Specimen has been received and culture in progress. No Growth to date. 10/07/18 15:21 Venous blood - Right Arm Blood Culture - Preliminary Specimen has been received and culture in progress. No Growth to date. Laboratory Tests 05/10/18 08/12/18 09/29/18 22:36 19:42 03:34 Alkaline Phosphatase 102 Lipase 201 H 159 H 10/07/18 10/07/18 10/08/18 15:21 15:21 05:10 Alkaline Phosphatase 173 H 147 Lipase 151 H 101 H Phys Exam - Physical Examination Constitutional: NAD HEENT: PERRLA, moist MMs, sclera anicteric, oral pharynx no lesions Neck: no nodes, no JVD, supple, full ROM Respiratory: no wheezing, no rales, no rhonchi, clear to auscultation bilateral Cardiovascular: RRR, no significant murmur, no rub Gastrointestinal: soft, non-tender, no distention, positive bowel sounds Musculoskeletal: no edema, pulses present Neurological: non-focal, normal sensation, moves all 4 limbs Psychiatric: normal affect, A&O x 3 Dx/Plan (1) Abdominal pain Code(s): R10.9 - UNSPECIFIED ABDOMINAL PAIN Status: Acute Qualifiers: Abdominal location: lower abdomen, unspecified Qualified Code(s): R10.30 - Lower abdominal pain, unspecified (2) Generalized weakness Code(s): R53.1 - WEAKNESS Status: Acute (3) Diastolic congestive heart failure Code(s): I50.30 - UNSPECIFIED DIASTOLIC (CONGESTIVE) HEART FAILURE Status: Chronic Qualifiers: Comment: (4) ESRD (end stage renal disease) Code(s): N18.6 - END STAGE RENAL DISEASE Status: Chronic Comment: HD per Renal service (5) HLD (hyperlipidemia) Code(s): E78.5 - HYPERLIPIDEMIA, UNSPECIFIED Status: Chronic Qualifiers: Hyperlipidemia type: unspecified Qualified Code(s): E78.5 - Hyperlipidemia , unspecified (6) HTN (hypertension) Code(s): I10 - ESSENTIAL (PRIMARY) HYPERTENSION Status: Chronic Qualifiers: Comment: Labile due to ESRD (7) Chronic anemia Code(s): D64.9 - ANEMIA, UNSPECIFIED Status: Chronic Comment: Secondary to CKD, stable (8) DM type 2 (diabetes mellitus, type 2) Status: Chronic Qualifiers: Diabetes mellitus complication status: with kidney complications Diabetes mellitus complication detail: with chronic kidney disease Chronic kidney disease stage: on chronic dialysis Comment: Blood sugars decently controlled - Plan DVT proph w/SCDs lipase trended down.Abd US showed no evidence of infection. -: waling w walking program.eating well -: no real pathology identified.labs WNL. -: kam Natarajan pain from coughing from recent PNA -: HD per nephrology but will DC home afterwards.f/u w PCP.cont Doxycycline * . Review of Systems - Medications/Allergies Allergies/Adverse Reactions: Allergies Allergy/AdvReac Type Severity Reaction Status Date / Time No Known Allergies Allergy Verified 10/08/18 06:21 Medications: Current Medications Acetaminophen (Tylenol) 1,000 mg PO Q6H PRN PRN Reason: Mild Pain (1-3) Albuterol/Ipratropium (Duoneb) 3 ml NEB [id number] PRN PRN Reason: SOB &/or Wheezing Aspirin (Ecotrin) 81 mg PO DAILY JONATHAN Cholecalciferol (Vitamin D3) 2,000 units PO DAILY [facility] Clonidine (Catapres) 0.2 mg PO BID [facility] Last Admin: 10/07/18 21:53 Dose: 0.2 mg Doxycycline Hyclate (Vibramycin) 100 mg PO BID [facility] Last Admin: 10/07/18 21:54 Dose: 100 mg Famotidine (Pepcid) 20 mg PO QPM [facility] Last Admin: 10/07/18 21:53 Dose: 20 mg Influenza Virus Vaccine Quadrival (Fluzone Quad [id number] Syringe) 0.5 ml IM .ONCE ONE Stop: 10/08/18 09:01 Lisinopril (Zestril) 10 mg PO DAILY [facility] Metoprolol Tartrate (Lopressor) 100 mg PO BID [facility] Last Admin: 10/07/18 21:53 Dose: 100 mg Ondansetron HCl (Zofran Odt) 4 mg PO Q6H PRN PRN Reason: Nausea/Vomiting Ondansetron HCl (Zofran) 4 mg IVP Q6H PRN PRN Reason: Nausea/Vomiting Sevelamer Carbonate (Renvela) 800 mg PO TID-WM [facility] Tramadol HCl (Ultram) 50 mg PO Q4HR PRN PRN Reason: Pain 4-6
[2018-10-08] MEDS: Sevelamer Carbonate 800 MG TAB PO SCH ×3 (08:29→18:11)
[2018-10-08] MEDS: Doxycycline 100 MG CAP PO SCH (08:29)
[2018-10-08] MEDS: cloNIDine 0.2 MG TAB PO SCH (08:31)
[2018-10-08] MEDS: Metoprolol Tartrate 100 MG TAB PO SCH (08:31)
[2018-10-08] MEDS ORDERED: Lisinopril 10 MG TAB PO SCH (09:00)
[2018-10-08] MEDS ORDERED: Aspirin 81 mg Enteric Coated Tablet PO SCH (09:00)
[2018-10-08] MEDS ORDERED: Heparin 1,000 UNITS/ML VIAL ONE (11:11)
[2018-10-08 11:55] VITALS: BP 112/55; TEMP 97.8
--- NOTE | 2018-10-09 03:35 | DIS ---
DATE OF ADMISSION: 10/07/2018 DATE OF DISCHARGE: 10/08/2018 DISCHARGE DISPOSITION: Home with home health. PRIMARY CARE PHYSICIAN: Darling Gregory MD DISCHARGE DIAGNOSES: 1. Unspecified abdominal pain likely from coughing from recent pneumonia. 2. Generalized weakness from recent illness. No acute deficits. 3. Recent hospitalization for community-acquired pneumonia, 09/28/2018 through 10/05/2018. 4. Chronic congestive diastolic heart failure. 5. End-stage renal disease, on hemodialysis. 6. Chronic anemia secondary to chronic kidney disease. 7. Dyslipidemia. 8. Chronically elevated troponin. 9. Chronic hyponatremia. IN-HOUSE CONSULTATION: Nephrology Dr. Appiah. DISCHARGE MEDICATIONS: Discharge medications remain the same as admission medications. No changes were made. New medications, Mucinex 600 mg p.o. b.i.d. for 5 days and Tessalon Perles as needed for cough. HISTORY OF PRESENTING ILLNESS: Ms. Saldivar is a 57-year-old female who was recently admitted to our facility earlier this month and was discharged on 10/05/2018 on doxycycline for pneumonia, who came back to the emergency room with complaint of generalized weakness and abdominal pain. She had CT angio of the chest in the ER because her D-dimer was elevated, which was negative for any pulmonary embolism and did not show any acute intrathoracic finding. She was noted to have a distended gallbladder and elevated lipase of 151, so she was admitted for further evaluation and observation. Please note that this abdominal ultrasound was done on 09/29/2018 for her complaints of abdominal pain during last hospitalization as well. HOSPITAL COURSE: The patient had unremarkable hospital course. She continued to have nonspecific abdominal pain without any evidence of nausea, vomiting, or diarrhea. She was able to the eat and ambulate freely in the hospital. She remained hemodynamically stable. It was found out that her abdominal pain is most likely secondary to excessive coughing. She was started on Mucinex and Tessalon Perles. She underwent hemodialysis while in hospital. At the time of discharge, she is back to her baseline and mild abdominal discomfort, which does not seem to have any organic pathology. Her lipase was minimally elevated at the time of presentation at 151, which came down to 101. It was actually [address] in July [address] scan was done in July of 2018, which showed distended gallbladder without any evidence of obstruction or inflammation or signs of acute cholecystitis. This is rather benign finding and is not contributing to patient's symptoms at this time. She was seen and examined prior to discharge. Please see hospitalist progress note from the date of discharge for further details. Job ID: [id number]
== END 2018-10-08 19:07 | disposition home or self-care (01) ==
LOC: ERS 15:05 → 2SW 16:38
PROVIDERS: ADMIT Family Medicine; ATTEND Family Medicine
DX: R53.1 Weakness (principal); R10.9 Unspecified abdominal pain; J96.01 Acute respiratory failure with hypoxia; I13.2 Hypertensive heart and chronic kidney disease with heart failure and with stage 5 chronic kidney disease, or end stage renal disease; E11.22 Type 2 diabetes mellitus with diabetic chronic kidney disease; N18.6 End stage renal disease; I50.32 Chronic diastolic (congestive) heart failure; Z99.2 Dependence on renal dialysis; J18.9 Pneumonia, unspecified organism; E87.1 Hypo-osmolality and hyponatremia; E66.9 Obesity, unspecified; Z68.39 Body mass index [BMI] 39.0-39.9, adult; D63.1 Anemia in chronic kidney disease; E78.5 Hyperlipidemia, unspecified; Z90.710 Acquired absence of both cervix and uterus; Z79.82 Long term (current) use of aspirin; Z79.2 Long term (current) use of antibiotics; Z79.4 Long term (current) use of insulin; Z79.899 Other long term (current) drug therapy; Z98.890 Other specified postprocedural states
CPT/HCPCS: 51701; 71045; 71275; 80053 ×2; 82550; 82553; 82805; 82962 ×2; 83605; 83690 ×2; 83880; 84484; 85007; 85025; 85027; 85379; 87040; 87086; 87804 ×2; 93005; 94640; 94760; 96365; 96375; 97139; 99285; G0378 ×2; 36415; 36416; 81003; 81015; 90935; A4353; G0257; J1100; J1644; J7611; J7620

== ENCOUNTER 2018-11-18 07:24 | Outpatient (CLI) | payer MEDICARE, MEDICAID ==
[2018-11-18 13:26] LABS: Hemoglobin 12.4 g/dL (12.0-16.0); Mean Corpuscular HGB CONC 32.6 g/dL (32.0-36.0); Mean Corpuscular Hemoglobin 30.1 pg (27.0-31.0); Mean Corpuscular Volume 92.4 fL (78.0-98.0); Mean Platelet Volume 7.1 fL (7.4-10.4); Platelet Count 243 thou/uL (130-400); RBC Distribution Width 13.7 % (11.5-14.5); Red Blood Cell (RBC) Count 4.11 mill/uL (4.20-5.40); White Blood Cell (WBC) Count 7.4 thou/uL (4.8-10.8)
[2018-11-18 13:45] LABS: Anion Gap 16 mmol/L (10-20); BUN (Urea Nitrogen) 37 mg/dL (9.8-20.1); Calc. Creatinine Clearance 0 mL/min (70-130); Calcium 9.7 mg/dL (7.8-10.44); Carbon Dioxide 30 mmol/L (22-29); Chloride 95 mmol/L (98-107); Estimated GFR-MDRD 8; Glucose 145 mg/dL (70-105); Potassium 4.4 mmol/L (3.5-5.1); Sodium 137 mmol/L (136-145)
== END 2018-11-18 07:25 | disposition home or self-care (01) ==
LOC: LABBT 07:24
PROVIDERS: ATTEND Thoracic Surgery (Cardiothoracic Vascular Surgery)
DX: Z01.812 Encounter for preprocedural laboratory examination (principal); I73.9 Peripheral vascular disease, unspecified
CPT/HCPCS: 80048; 85027

== ENCOUNTER 2018-11-18 13:26 | Inpatient (IN) | payer MEDICARE, MEDICAID ==
[2018-11-18 14:43] LABS: #Eosinphils 0.1 thou/uL (0.0-0.7); #Lymphocytes 0.8 thou/uL (1.20-3.40); #Monocytes 0.6 thou/uL (0.11-0.59); #Neutrophils 4.5 thou/uL (1.40-6.50); %Basophils 0.2 % (0.0-1.0); %Eosinophils 1.9 % (0.0-10.0); %Lymphocytes 13.4 % (21.0-51.0); %Neutrophils 74.5 % (42.0-75.0); Hemoglobin 11.6 g/dL (12.0-16.0); Mean Corpuscular HGB CONC 32.6 g/dL (32.0-36.0); Mean Corpuscular Hemoglobin 30.1 pg (27.0-31.0); Mean Corpuscular Volume 92.4 fL (78.0-98.0); Mean Platelet Volume 7.2 fL (7.4-10.4); Platelet Count 236 thou/uL (130-400); RBC Distribution Width 13.8 % (11.5-14.5); Red Blood Cell (RBC) Count 3.86 mill/uL (4.20-5.40)
[2018-11-18 15:27] LABS: ALT (SGPT) Less than 7 U/L (8-55); AST (SGOT) 18 U/L (5-34); Alkaline Phosphatase 129 U/L (40-150); Anion Gap 21 mmol/L (10-20); BUN (Urea Nitrogen) 38 mg/dL (9.8-20.1); Bilirubin, Total 0.4 mg/dL (0.2-1.2); Calc. Creatinine Clearance 0 mL/min (70-130); Calcium 9.1 mg/dL (7.8-10.44); Carbon Dioxide 26 mmol/L (22-29); Chloride 92 mmol/L (98-107); Estimated GFR-MDRD 7; Globulin 4.7 g/dL (2.4-3.5); Glucose 211 mg/dL (70-105); Potassium 4.4 mmol/L (3.5-5.1); Protein, Total 8.7 g/dL (6.0-8.3); Sodium 135 mmol/L (136-145)
--- NOTE | 2018-11-18 16:29 | RAD ---
3 VIEWS RIGHT FOOT: Date: 11/18/18 PROVIDED CLINICAL HISTORY: Diabetic foot ulcer. FINDINGS: No prior images are currently available. There is no evidence for fracture. Vascular calcifications are seen. Alignment appears anatomic. Join t spaces appear preserved. Plantar and posterior calcaneal enthesophyte formation are noted. There is no evidence for focal osteolysis. IMPRESSION: No radiographic evidence for an acute osseous abnormality. POS: T[facility]
--- NOTE | 2018-11-18 16:29 | RAD ---
PORTABLE CHEST: 11/18/2018 PROVIDED CLINICAL HISTORY: Preop. COMPARISON: 10/07/2018 FINDINGS: The cardiac silhouette remains enlarged. Elevation of the right hemidiaphragm is again seen. No foc al consolidation, pleural fluid, or pneumothorax apparent. IMPRESSION: Cardiomegaly without evidence for an acute cardiopulmonary process. POS: TPC
[2018-11-18] MEDS ORDERED: Sodium Chloride 0.9% 100 ML ONE (17:17)
[2018-11-18] MEDS ORDERED: Piperacillin/Tazobactam 4.5 GM VIAL ONE (17:17)
[2018-11-18] MEDS ORDERED: Vancomycin HCl 1.5 GM in Sodium Chloride 0.9% 250 ML 300 ML IVPB SCH (17:45)
[2018-11-18] MEDS ORDERED: Dextrose 5% in Water 1,000 ML IV PRN (20:27)
[2018-11-18] MEDS ORDERED: Dextrose 50% Abboject 50 ML SYRINGE SLOW IVP PRN (20:27)
[2018-11-18] MEDS ORDERED: HumaLOG 300 UNITS/3 ML VIAL SC PRN ×2 (20:27)
[2018-11-18] MEDS ORDERED: cloNIDine 0.1 MG TAB PO PRN (20:27)
[2018-11-18] MEDS ORDERED: hydrALAZINE 20 MG/ML VIAL SLOW IVP PRN (20:27)
[2018-11-18] MEDS ORDERED: Ondansetron ODT 4 MG TAB PO PRN (20:27)
[2018-11-18] MEDS ORDERED: Ondansetron PF 4 MG/2 ML Vial IVP PRN (20:27)
[2018-11-18] MEDS: Heparin 5,000 UNITS/ML VIAL SC SCH (21:23)
[2018-11-18] MEDS: Famotidine 20 MG TAB PO SCH (21:23)
[2018-11-18] MEDS: cloNIDine 0.1 MG TAB PO SCH (21:23)
[2018-11-18] MEDS: Metoprolol Tartrate 100 MG TAB PO SCH (21:24)
[2018-11-18] MEDS ORDERED: Piperacillin/Tazobactam 2.25 GM in Sodium Chloride 0.9% 100 ML IVPB SCH (22:00)
[2018-11-19] MEDS ORDERED: Chloraseptic Spray 180 ml Bottle PO PRN (00:19)
[2018-11-19] MEDS: Piperacillin/Tazobactam 2.25 GM in Sodium Chloride 0.9% 100 ML IVPB SCH ×3 (00:54→17:28)
--- NOTE | 2018-11-19 01:03 | HP ---
PRIMARY CARE PROVIDER: Dr. Gregory. PRIMARY SENIOR ENVIRONMENTAL ENGINEER: Dr. Td Donahue. CHIEF COMPLAINT: Right great toe ulcer. HISTORY OF PRESENT ILLNESS: This is a 57-year-old female with significant history of end-stage renal disease, on hemodialysis Wednesday, , and Saturdays, presenting with right great toe ulceration with increasing redness to the right lower extremity with associated pain of the right great toe. The patient with a known history of peripheral vascular disease, undergoing a perioperative exam prior to consideration for right lower extremity revascularization and stent placement. The patient states that she is being evaluated for revascularization procedure when she was noted with the ulceration by the medical staff. The patient was referred to the emergency room for further evaluation. The patient and daughter report noticing increasing redness and ulceration over the last week with redness progressing up the ankle and elliott region. The patient states she has been compliant with her hemodialysis regimen undergoing her last hemodialysis in the last 24 hours prior to this evaluation. The patient admits to feeling febrile, but no specific documented fever occurred at home. The patient describes pain in the great toe, worse with touching the toe or attempting to ambulate. The patient denies taking any medication or antibiotic therapy. In the emergency room, the patient underwent general evaluation including plain radiographs of the right foot showing no evidence of acute osseous destruction. In the emergency room, patient received IV vancomycin and Zosyn and was referred to the Hospitalist Service for further evaluation. PAST MEDICAL HISTORY: 1. History of community-acquired pneumonia, treated in 09/2018. 2. Chronic diastolic heart failure. 3. End-stage renal disease with hemodialysis Wednesday, , Wednesday. 4. Obesity. 5. Chronic elevated troponin I. 6. Chronic anemia secondary to chronic kidney disease. 7. Dyslipidemia. PAST SURGICAL HISTORY: 1. Status post hysterectomy. 2. Status post section x5. 3. Status post AV fistula placement in the left upper extremity. CURRENT MEDICATIONS: 1. Enteric-coated aspirin 81 mg p.o. daily. 2. Lipitor 40 mg p.o. at bedtime. 3. Albuterol sulfate 1 to 2 puffs inhaled q.4 hours p.r.n. 4. Doxycycline 100 mg p.o. b.i.d. 5. Amlodipine 10 mg p.o. daily. 6. Vitamin D3 2000 units p.o. daily. 7. Catapres 0.2 mg p.o. b.i.d. 8. Zestril 10 mg p.o. daily. 9. Metoprolol tartrate 100 mg p.o. b.i.d. 10. Renvela 800 mg p.o. t.i.d. 11. Tramadol 50 mg p.o. q.4 hours p.r.n. pain. ALLERGIES: NO KNOWN DRUG ALLERGIES. FAMILY HISTORY: Positive for hypertension and diabetes mellitus. SOCIAL HISTORY: The patient resides in [place], [place]. No alcohol, tobacco, or illicit drug use. REVIEW OF SYSTEMS: CONSTITUTIONAL: Negative for weight loss or gain, ability to conduct usual activities. SKIN: Negative for rash, itching. EYES: Negative for double vision, pain. ENT/MOUTH: Negative for nose bleeding, neck stiffness, pain, tenderness. CARDIOVASCULAR: Negative for palpitations, dyspnea on exertion, orthopnea. RESPIRATORY: Negative for shortness of breath, wheezing, cough, hemoptysis, fever or night sweats. GASTROINTESTINAL: Negative for poor appetite, abdominal pain, heartburn, nausea, vomiting, constipation, or diarrhea. GENITOURINARY: Negative for urgency, frequency, dysuria, nocturia. MUSCULOSKELETAL: Negative for pain, swelling. NEUROLOGIC/PSYCHIATRIC: Negative for anxiety, depression. ALLERGY/IMMUNOLOGIC: Negative for skin rash, bleeding tendency. Otherwise negative except as stated per HPI. PHYSICAL EXAMINATION: VITAL SIGNS: On admission, blood pressure 180/73, pulse 97, respiratory rate 16, temperature 99 degrees Fahrenheit, O2 saturation 99% on room air. GENERAL APPEARANCE: This is a 57-year-old female, alert and smiling, in no acute distress. HEENT: Pupils are equal, round, reactive to light and accommodation. Extraocular muscles are intact. Nares patent. OP is clear. Oropharynx is clear. NECK: Supple. No cervical adenopathy. No thyromegaly. No carotid bruits. No JVD appreciated. Cervical spine with full active and passive range of motion. No meningeal signs appreciated. CHEST: Diminished breath sounds in the bases bilaterally. Otherwise clear. CARDIOVASCULAR EXAM: S1 and S2 without noted murmur, rub, or gallop. ABDOMEN: Obese with mild tenderness to palpation in the left lower quadrant. No rebound or guarding noted. EXTREMITIES: Warm and dry with fair turgor. Pulses diminished at the popliteal, dorsalis pedis and posterior tibial arteries bilaterally. Right great toe with violaceous discoloration on the medial aspect of the great toe distally with central erythema approximately 1 cm in diameter. No expressible discharge noted. Pallor noted in the web space between the great toe and right 2nd toe. Positive erythema along the 1st metatarsal and lower 3rd of the tibia. NEUROLOGIC: Cranial nerves 2 through 12 are grossly intact. No focal or lateralizing signs appreciated. PERTINENT LAB AND X-RAY FINDINGS: Sodium 135, potassium 4.4, chloride 92, CO2 of 26, BUN 38, creatinine 5.78, estimated GFR of 7, glucose 211, lactic acid level 0.9, calcium 9.1. LFTs within normal limits. CBC showed a white blood cell count of 6.0, hemoglobin of 11.6, hematocrit 36, platelet count 236 with 75% neutrophils. Three views of the right foot dated 11/18/2018 showed no acute osseous abnormality. Portable chest x-ray dated 11/18/2018 showed no acute cardiopulmonary process. EKG dated 11/18/2018 by my interpretation shows sinus mechanism with heart rates in the 90s. Attenuated R-waves noted in the precordial leads. Left axis deviation noted. No acute ST-T wave changes appreciated. ASSESSMENT/PLAN: 1. Right great toe diabetic foot ulcer with peripheral vascular disease. The patient will be admitted to the medical floor. We will continue IV antibiotic therapy to include Zosyn 2.25 g IV q.8 hours with additional vancomycin dosed with hemodialysis. Consult wound care team for local care and assessment. Consult General Surgery Service in the a.m. for consideration of local debridement. Plain radiographs did not show evidence of bony destruction. Given patient's multiple risk factors and peripheral vascular disease, the patient is at risk for amputation of the toe. 2. End-stage renal disease with hemodialysis. We will consult Nephrology Service in the a.m. for continuation and maintenance hemodialysis. No current evidence to suggest acute volume overload. 3. Diabetes mellitus type 2 with peripheral vascular disease and end-stage renal disease. We will continue insulin sliding scale for reflexive coverage. Levemir 22 units subcutaneously daily. Accu-Cheks a.c. and at bedtime. ADA diet. 4. Peripheral vascular disease. We will consult vascular surgery Service for evaluation and consideration for revascularization therapy in addition to stent placement of the right lower extremity. Continue enteric-coated aspirin 81 mg daily. 5. Prophylaxis. Heparin 5000 units subcutaneously b.i.d. 6. Pepcid 20 mg p.o. b.i.d. CODE STATUS: Full. Surrogate medical decision maker is patient's daughter. Job ID: [id number]
[2018-11-19] MEDS: Acetaminophen 500 MG TAB PO PRN (05:11)
[2018-11-19 06:00] LABS: Anion Gap 15 mmol/L (10-20); BUN (Urea Nitrogen) 44 mg/dL (9.8-20.1); Calc. Creatinine Clearance 11 mL/min (70-130); Calcium 8.6 mg/dL (7.8-10.44); Carbon Dioxide 29 mmol/L (22-29); Chloride 95 mmol/L (98-107); Estimated GFR-MDRD 6; Glucose 191 mg/dL (70-105); Potassium 4.6 mmol/L (3.5-5.1); Sodium 134 mmol/L (136-145)
[2018-11-19 06:30] LABS: Band 3 % (5-11); Eosinophils 3 % (0-10); Hemoglobin 10.6 g/dL (12.0-16.0); Lymphocytes 14 % (21-51); MDiff Complete? YES; Mean Corpuscular HGB CONC 33.9 g/dL (32.0-36.0); Mean Corpuscular Hemoglobin 31.5 pg (27.0-31.0); Mean Platelet Volume 7.3 fL (7.4-10.4); Monocytes 10 % (0-10); Neutrophil 69 % (42-75); Platelet Count 202 thou/uL (130-400); Platelet Morphology Comment Appears Adequate; RBC Distribution Width 13.5 % (11.5-14.5); Reactive Lymphocytes 1 % (0-10); Red Blood Cell (RBC) Count 3.37 mill/uL (4.20-5.40)
[2018-11-19] MEDS ORDERED: INSULIN DETEMIR 22 UNIT SC SCH (08:00)
[2018-11-19] MEDS: Metoprolol Tartrate 100 MG TAB PO SCH ×2 (08:05→20:57)
[2018-11-19] MEDS: Lisinopril 20 MG TAB PO SCH (08:05)
[2018-11-19] MEDS: Aspirin 81 mg Enteric Coated Tablet PO SCH (08:05)
[2018-11-19] MEDS: Amlodipine 10 MG TAB PO SCH (08:05)
[2018-11-19] MEDS: cloNIDine 0.1 MG TAB PO SCH ×2 (08:05→20:57)
[2018-11-19] MEDS: Sevelamer Carbonate 800 MG TAB PO SCH ×3 (08:06→17:28)
[2018-11-19] MEDS: Heparin 5,000 UNITS/ML VIAL SC SCH ×2 (08:06→20:57)
[2018-11-19] MEDS: INSULIN GLARGINE SC SCH (08:06)
[2018-11-19] MEDS: traMADol HCl 50 MG TAB PO PRN (08:27)
[2018-11-19] MEDS ORDERED: Vancomycin HCl 1 GM in Premix Bag 1 BAG IVPB SCH (09:00)
[2018-11-19] MEDS ORDERED: Heparin 1,000 UNITS/ML VIAL ONE (11:11)
--- NOTE | 2018-11-19 11:55 | CON ---
DATE OF CONSULTATION: HISTORY OF PRESENT ILLNESS: Ms. Saldivar is a 57-year-old female with ESRD and admitted for right great toe ulceration/cellulitis. She was admitted for further IV antibiotics and further management with this. We are being consulted for maintenance hemodialysis. The patient is now undergoing hemodialysis. We are following her outpatient dialysis regimen. No other complaints. REVIEW OF SYSTEM: Occasional cough. Positive for right toe pain. No nausea. No vomiting. No diarrhea or constipation. No headache. No diplopia. Appetite and energy level are fair. No abdominal pain. No hematochezia. No melena. No dysuria. No urinary frequency. No syncopal episode. MEDICATIONS: Medications currently on; 1. Norvasc 10 mg daily. 2. Ecotrin 81 mg daily. 3. Catapres 0.1 mg p.o. b.i.d. 4. Famotidine 20 mg q.24 hours. 5. Heparin 5000 units subcu b.i.d. 6. Insulin glargine 22 units subcu q.a.m. 7. Humalog sliding scale. 8. Zestril 20 mg daily. 9. Lopressor 100 mg p.o. b.i.d. 10. Zofran 4 mg q.6 p.r.n. 11. Zosyn 2.25 g IV q.8 hours. 12. Renvela 800 mg - 4 tablets t.i.d. with meals status post vancomycin. PAST MEDICAL HISTORY: 1. ESRD from diabetic nephropathy. 2. Type 2 diabetes mellitus. 3. Hypertension. 4. The patient is status post CHF. 5. Hyperlipidemia. 6. Diabetic neuropathy. 7. Hypothyroidism. 8. History of coronary artery disease. PAST SURGICAL HISTORY: Status post hysterectomy, status post AV fistula placement, and status post cuffed hemodialysis catheter placement. SOCIAL HISTORY: The patient lives in [place]. , 4 children. Lives with her . Currently, no smoking. No drug abuse. Status post blood transfusion. No alcohol. Sedentary lifestyle. ALLERGIES: NONE. TRAUMA: None. IMMUNIZATION: Up-to-date. HOSPITALIZATIONS: Please see past medical history. FAMILY HISTORY: No family history of ESRD. PHYSICAL EXAMINATION: VITAL SIGNS: Blood pressure is 148/83, heart rate 78, respiratory rate 18, temperature 98.9, and pulse ox 93%. GENERAL: Awake, alert, and comfortable, not in distress. SKIN: Adequate turgor. HEENT: She has a slightly pale conjunctivae. Anicteric sclerae. NECK: No neck mass. No carotid bruits. No JVD. CHEST: No deformities. LUNGS: Clear breath sounds. HEART: Normal sinus rhythm. No murmur. No gallops. No rubs. ABDOMEN: Globular, soft, and nontender. No masses. EXTREMITIES: No edema. No deformities. Please note, she has a right great toe erythema and ulceration. LABORATORY DATA: Laboratories of November 19, 2018, white count 6 and hemoglobin 10.6. Sodium 134, potassium 4.6, chloride 95, carbon dioxide 29, BUN 44, creatinine 6.54, glucose 191, and calcium is 8.6. X-ray of the right foot showed no radiographic evidence of osteomyelitis. November 18, 2018, chest x-ray shows no CHF. ASSESSMENT AND PLAN: 1. Right toe infection - on IV antibiotics. No evidence of osteomyelitis. Surgery has been consulted regarding for a possible revascularization. It is possible she may have some ischemic right toe there. Dr. Sepulvdea has evaluated this patient. 2. End-stage renal disease, stable, tolerating current hemodialysis regimen. Our plan is to continue her regular 3 times a week hemodialysis regimen. 3. Borderline anemia. Start her maintenance Epogen and we will add ferrous sulfate. Job ID: [id number] [facility]
[2018-11-19 12:53] VITALS: BMI 34.5
[2018-11-19] MEDS ORDERED: Epoetin (ESRD) 20,000 UNITS/ML SC SCH (14:00)
--- NOTE | 2018-11-19 15:25 | PDOC.PN ---
- Subjective Encounter Start Date: 11/19/18 Encounter Start Time: 15:00 Subjective: f/u for R foot/great toe ulcer, PAD on current Vanc/Zosyn. Received -: HD today without complication. - Objective Resuscitation Status - Order Detail: 11/18/18 20:17 Resuscitation Status Routine Resuscitation Status: FULL: Full Resuscitation MAR Reviewed: Yes Vital Signs & Weight: Vital Signs (12 hours) Temp Pulse Resp BP BP Pulse Ox 11/19/18 08:05 78 184/74 H 11/19/18 08:00 93 L 11/19/18 07:46 98.9 F 78 18 148/83 H 93 L 11/19/18 06:37 100.0 F H 11/19/18 05:26 101.4 F H 81 18 153/93 H 93 L Weight Admit Weight 165 lb Weight 165 lb 6.4 oz Result Diagrams: 11/19/18 05:07 11/19/18 05:07 Additional Labs: Accuchecks 11/19/18 05:45 POC Glucose 182 H Microbiology 11/18/18 14:27 Venous blood - Right Hand Blood Culture - Preliminary Specimen has been received and culture in progress. No Growth to date. 11/18/18 14:26 Venous blood - Right Arm Blood Culture - Preliminary Specimen has been received and culture in progress. No Growth to date. Laboratory Tests 11/18/18 11/18/18 11/18/18 14:26 14:26 14:26 Hgb 11.6 L Sodium 135 L BUN 38 H Creatinine 5.78 H Lactic Acid 0.9 Phys Exam - Physical Examination Constitutional: NAD HEENT: PERRLA, sclera anicteric, oral pharynx no lesions Neck: no nodes, no JVD, supple, full ROM Respiratory: no wheezing, no rales, no rhonchi, clear to auscultation bilateral S1, S2 Cardiovascular: RRR, no significant murmur, no rub, gallop + obese Gastrointestinal: soft, non-tender, no distention, positive bowel sounds R great toe ulceration, pallor in toe web space 1st-2nd toe Musculoskeletal: pulses present, edema present Neurological: normal sensation, moves all 4 limbs Psychiatric: A&O x 3 Skin: normal turgor, cap refill <2 seconds Dx/Plan (1) Diabetic ulcer of right foot associated with diabetes mellitus due to underlying condition Code(s): E08.621 - DIABETES MELLITUS DUE TO UNDERLYING CONDITION W FOOT ULCER; L97.519 - NON-PRS CHRONIC ULCER OTH PRT RIGHT FOOT W UNSP SEVERITY Status: Acute Comment: Continue Zosyn/Vancomycin, WCT for local care, plan for revascularization per Vascular surgery recs (2) Ischemic pain of right foot Code(s): M79.671 - PAIN IN RIGHT FOOT; I99.9 - UNSPECIFIED DISORDER OF CIRCULATORY SYSTEM Status: Acute Comment: Pain control, elevate R foot while in bed (3) Peripheral artery disease Code(s): I73.9 - PERIPHERAL VASCULAR DISEASE, UNSPECIFIED Status: Chronic Comment: Continue ASA, see above (4) DM (diabetes mellitus) type II uncontrolled, periph vascular disorder Code(s): E11.51 - TYPE 2 DIABETES W DIABETIC PERIPHERAL ANGIOPATH W/O GANGRENE; E11.65 - TYPE 2 DIABETES MELLITUS WITH HYPERGLYCEMIA Status: Chronic Comment : Continue home insulin regimen, ISS, ADA (5) ESRD (end stage renal disease) on dialysis Code(s): N18.6 - END STAGE RENAL DISEASE; Z99.2 - DEPENDENCE ON RENAL DIALYSIS Status: Chronic Comment: HD per Renal service - Plan plan discussed w/ family, continue antibiotics, vp digital marketing social media and crm stable currently -: HD per Renal service -: Continue Zosyn/Vancomycin -: WCT for local care -: Likely will proceed with revascularization in 48-72h * .
[2018-11-19] MEDS: Ferrous Sulfate 325 MG TAB PO SCH (17:28)
[2018-11-19] MEDS: Famotidine 20 MG TAB PO SCH (20:57)
[2018-11-20] MEDS: Piperacillin/Tazobactam 2.25 GM in Sodium Chloride 0.9% 100 ML IVPB SCH ×3 (00:34→16:37)
[2018-11-20] MEDS: Amlodipine 10 MG TAB PO SCH (07:59)
[2018-11-20] MEDS: Sevelamer Carbonate 800 MG TAB PO SCH ×3 (07:59→16:37)
[2018-11-20] MEDS: Ferrous Sulfate 325 MG TAB PO SCH ×2 (08:00→16:37)
[2018-11-20] MEDS: Metoprolol Tartrate 100 MG TAB PO SCH ×2 (08:00→20:31)
[2018-11-20] MEDS: cloNIDine 0.1 MG TAB PO SCH ×2 (08:00→20:31)
[2018-11-20] MEDS: Aspirin 81 mg Enteric Coated Tablet PO SCH (08:00)
[2018-11-20] MEDS: Heparin 5,000 UNITS/ML VIAL SC SCH ×2 (08:00→20:31)
[2018-11-20] MEDS: Lisinopril 20 MG TAB PO SCH (08:00)
[2018-11-20] MEDS: traMADol HCl 50 MG TAB PO PRN ×2 (08:01→22:31)
--- NOTE | 2018-11-20 10:15 | PDOC.PN ---
- Subjective Encounter Start Date: 11/20/18 Encounter Start Time: 10:10 Subjective: f/u for R DM foot/great toe ulcer and ischemia. Currently receiving Vanc -: and Zosyn with plans for revascularization 11/21/18. No new complaints. -: Tolerated HD yesterday without difficulty. - Objective Resuscitation Status - Order Detail: 11/18/18 20:17 Resuscitation Status Routine Resuscitation Status: FULL: Full Resuscitation MAR Reviewed: Yes Vital Signs & Weight: Vital Signs (12 hours) Temp Pulse Resp BP BP Pulse Ox 11/20/18 08:01 100 11/20/18 08:00 152/71 H 11/20/18 07:39 98.8 F 62 19 152/71 H 100 11/20/18 04:00 98.1 F 62 16 126/61 95 11/20/18 00:00 98.2 F 87 16 104/66 99 Weight Admit Weight 165 lb Weight 5.647 oz I&O: 11/19/18 11/20/18 11/21/18 06:59 06:59 06:59 Intake Total 720 Output Total 2600 Balance -1880 Result Diagrams: 11/19/18 05:07 11/19/18 05:07 Additional Labs: Accuchecks 11/20/18 11/20/18 11/20/18 06:33 05:37 00:40 POC Glucose 122 H 68 L 77 11/19/18 17:03 POC Glucose 116 H Microbiology 11/18/18 14:27 Venous blood - Right Hand Blood Culture - Preliminary Specimen has been received and culture in progress. No Growth to date. 11/18/18 14:26 Venous blood - Right Arm Blood Culture - Preliminary Specimen has been received and culture in progress. No Growth to date. Laboratory Tests 11/18/18 11/18/18 11/18/18 14:26 14:26 14:26 Hgb 11.6 L Sodium 135 L BUN 38 H Creatinine 5.78 H Lactic Acid 0.9 Phys Exam - Physical Examination Constitutional: NAD HEENT: PERRLA, sclera anicteric, oral pharynx no lesions Neck: no nodes, no JVD, supple, full ROM Respiratory: no wheezing, no rales, no rhonchi, clear to auscultation bilateral S1, S2 Cardiovascular: RRR, no significant murmur, no rub, gallop Gastrointestinal: soft, non-tender, no distention, positive bowel sounds R great toe with dry ulcer medially, pallor in web space dusky appearance to toes on both feet, diminished pulses bilat Neurological: normal sensation, moves all 4 limbs Psychiatric: A&O x 3 Skin: normal turgor, cap refill <2 seconds Dx/Plan (1) Diabetic ulcer of right foot associated with diabetes mellitus due to underlying condition Code(s): E08.621 - DIABETES MELLITUS DUE TO UNDERLYING CONDITION W FOOT ULCER; L97.519 - NON-PRS CHRONIC ULCER OTH PRT RIGHT FOOT W UNSP SEVERITY Status: Acute Comment: Continue Zosyn/Vancomycin, WCT for local care, plan for revascularization per Vascular surgery recs likely in 24h (2) Ischemic pain of right foot Code(s): M79.671 - PAIN IN RIGHT FOOT; I99.9 - UNSPECIFIED DISORDER OF CIRCULATORY SYSTEM Status: Acute Comment: Pain control, elevate R foot while in bed, Vascular surgery planning stent/revascularization procedure in 24h (3) Peripheral artery disease Code(s): I73.9 - PERIPHERAL VASCULAR DISEASE, UNSPECIFIED Status: Chronic Comment: Continue ASA, see above (4) DM (diabetes mellitus) type II uncontrolled, periph vascular disorder Code(s): E11.51 - TYPE 2 DIABETES W DIABETIC PERIPHERAL ANGIOPATH W/O GANGRENE; E11.65 - TYPE 2 DIABETES MELLITUS WITH HYPERGLYCEMIA Status: Chronic Comment : Continue home insulin regimen, ISS, ADA (5) ESRD (end stage renal disease) on dialysis Code(s): N18.6 - END STAGE RENAL DISEASE; Z99.2 - DEPENDENCE ON RENAL DIALYSIS Status: Chronic Comment: HD per Renal service - Plan continue antibiotics, case management social worker, out of bed/ambulate Stable currently -: Continue Vancomycin with HD -: Continue Zosyn -: WCT for local care -: Plan for angio/revascularization RLE in 24h * HD per Renal service
[2018-11-20] MEDS: INSULIN GLARGINE SC SCH (10:19)
[2018-11-20] MEDS: Famotidine 20 MG TAB PO SCH (20:31)
[2018-11-21] MEDS: Piperacillin/Tazobactam 2.25 GM in Sodium Chloride 0.9% 100 ML IVPB SCH ×3 (01:47→17:22)
[2018-11-21] MEDS: Metoprolol Tartrate 100 MG TAB PO SCH ×2 (06:20→19:50)
[2018-11-21] MEDS: Acetaminophen 500 MG TAB PO PRN (08:41)
[2018-11-21] MEDS: Ferrous Sulfate 325 MG TAB PO SCH ×2 (08:49→17:21)
[2018-11-21] MEDS: Sevelamer Carbonate 800 MG TAB PO SCH ×3 (08:49→17:21)
[2018-11-21] MEDS: Amlodipine 10 MG TAB PO SCH (08:49)
[2018-11-21] MEDS: Aspirin 81 mg Enteric Coated Tablet PO SCH (08:49)
[2018-11-21] MEDS: cloNIDine 0.1 MG TAB PO SCH ×2 (08:50→19:50)
[2018-11-21] MEDS: INSULIN GLARGINE SC SCH (08:50)
[2018-11-21] MEDS: Heparin 5,000 UNITS/ML VIAL SC SCH ×2 (08:50→19:50)
[2018-11-21] MEDS: Lisinopril 20 MG TAB PO SCH (08:51)
[2018-11-21] MEDS ORDERED: Iopamidol 370 76% 50 ML VIAL FS ONE (12:08)
[2018-11-21] MEDS ORDERED: Heparin 10,000 UNITS/1 ML VIAL ONE (12:21)
[2018-11-21] MEDS ORDERED: Clopidogrel Bisulfate 300 MG TAB ONE (12:40)
[2018-11-21] MEDS ORDERED: Protamine Sulfate 50 MG/5 ML VIAL ONE (12:55)
--- NOTE | 2018-11-21 14:11 | PDOC.PN ---
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 No new complaints currently. - Objective Resuscitation Status - Order Detail: 11/18/18 20:17 Resuscitation Status Routine Resuscitation Status: FULL: Full Resuscitation MAR Reviewed: Yes Vital Signs & Weight: Vital Signs (12 hours) Temp Pulse Resp BP BP Pulse Ox 11/21/18 07:45 97.7 F 62 19 136/72 97 11/21/18 04:00 97.1 F L 60 18 127/69 96 Weight Admit Weight 165 lb Weight 157 lb 1.6 oz I&O: 11/20/18 11/21/18 11/22/18 06:59 06:59 06:59 Intake Total 720 720 Output Total 2600 Balance -1880 720 Result Diagrams: 11/19/18 05:07 11/19/18 05:07 Additional Labs: Accuchecks 11/21/18 11/21/18 11/20/18 13:23 04:37 19:24 POC Glucose 85 103 128 H 11/20/18 11/18/18 15:51 14:07 POC Glucose 153 H 207 H Microbiology 11/18/18 14:27 Venous blood - Right Hand Blood Culture - Preliminary Specimen has been received and culture in progress. No Growth to date. 11/18/18 14:26 Venous blood - Right Arm Blood Culture - Preliminary Specimen has been received and culture in progress. No Growth to date. Laboratory Tests 11/18/18 11/18/18 11/18/18 14:26 14:26 14:26 Hgb 11.6 L Sodium 135 L BUN 38 H Creatinine 5.78 H Lactic Acid 0.9 Phys Exam - Physical Examination Constitutional: NAD HEENT: PERRLA, sclera anicteric, oral pharynx no lesions Neck: no nodes, no JVD, supple, full ROM Respiratory: no wheezing, no rales, no rhonchi, clear to auscultation bilateral S1, S2 Cardiovascular: RRR, no significant murmur, no rub, gallop obese Gastrointestinal: soft, non-tender, no distention, positive bowel sounds R great with ulcer, dusky toes noted Musculoskeletal: no edema, pulses present Neurological: normal sensation, moves all 4 limbs Skin: normal turgor, cap refill <2 seconds Dx/Plan (1) Diabetic ulcer of right foot associated with diabetes mellitus due to underlying condition Code(s): E08.621 - DIABETES MELLITUS DUE TO UNDERLYING CONDITION W FOOT ULCER; L97.519 - NON-PRS CHRONIC ULCER OTH PRT RIGHT FOOT W UNSP SEVERITY Status: Acute Comment: Continue Zosyn/Vancomycin, WCT for local care, s/p [employer] with stent RLE 11/21/18 (2) Ischemic pain of right foot Code(s): M79.671 - PAIN IN RIGHT FOOT; I99.9 - UNSPECIFIED DISORDER OF CIRCULATORY SYSTEM Status: Acute Comment: Pain control, elevate R foot while in bed, see above (3) Peripheral artery disease Code(s): I73.9 - PERIPHERAL VASCULAR DISEASE, UNSPECIFIED Status: Chronic Comment: Continue dual anti-platelet therapy in next 24h (4) DM (diabetes mellitus) type II uncontrolled, periph vascular disorder Code(s): E11.51 - TYPE 2 DIABETES W DIABETIC PERIPHERAL ANGIOPATH W/O GANGRENE; E11.65 - TYPE 2 DIABETES MELLITUS WITH HYPERGLYCEMIA Status: Chronic Comment : Continue home insulin regimen, ISS, ADA (5) ESRD (end stage renal disease) on dialysis Code(s): N18.6 - END STAGE RENAL DISEASE; Z99.2 - DEPENDENCE ON RENAL DIALYSIS Status: Chronic Comment: HD per Renal service - Plan continue antibiotics, social work coordinator, out of bed/ambulate Stable overall -: Continue Zosyn -: Resume dual anti-platelet therapy -: WCT for local care of R foot -: HD per Renal service * Likely home in 24h
--- NOTE | 2018-11-21 14:27 | OP ---
DATE OF PROCEDURE: 11/21/2018 PREOPERATIVE DIAGNOSIS: Ischemic ulcer, right foot. PROCEDURES PERFORMED: Aortogram, right lower extremity runoff with JERSEY KNITTER and stent to the right anterior tibial artery with a 2.5 x 8 synergy stent, JERSEY KNITTER of right popliteal with a 3 x 40 mustang balloon and JERSEY KNITTER of proximal SFA 3 x 40 mustang balloon. FINDINGS: Pertinent positives 80% anterior tibial reduced to zero, 80% popliteal reduced to zero with a small non-flow limiting dissection, and proximal SFA were reduced from 80% to 20%. The aorta, iliac, common femoral, and profunda femoral segments were normal. Right SFA with an 80% proximal lesion, diffuse irregularities throughout, probably less than 50, and then the popliteal with about an 80% lesion that was tight enough that a 5-Luxembourger catheter occluded flow. The posterior tibial and peroneal arteries were occluded and did not visualize the anterior tibial, had about an 80% stenosis just after its takeoff and then tapered off at the level of the ankle and had just collaterals entering the foot with the posterior tibial not visualizing and the peroneal visualizing faintly. DESCRIPTION OF PROCEDURE: After prepping and draping, ultrasound-guided puncture of the left common femoral artery was performed. Wire, 5-Luxembourger dilator, and sheath were placed. Contra catheter advanced into the aorta. Angiography obtained. Contra catheter advanced into the right common femoral artery, runoff obtained. Magic Torque Wire was then used to exchange the contra catheter and 5-Luxembourger sheath for a 6-Luxembourger destination sheath after heparinization and ACT levels were monitored. Following this, the angled 5-Luxembourger glide catheter was advanced to just below the popliteal artery over the wire and a Luge wire was then used to obtain access into the distal anterior tibial artery. A 2 mm x 2 cm balloon was used to inflate the anterior tibial artery and then this was withdrawn and used to inflate the popliteal artery. Due to residual stenosis in the anterior tibial artery at the site of the original stenosis, a 2.5 x 8 mm stent was deployed with a good result. A 3 x 40 balloon was then used to dilate the popliteal artery again and there was a dissection that showed faintly; however, there was good flow. This balloon was then withdrawn to the level of the proximal SFA, where balloon dilatation was carried out with a nice result there. Plavix was given orally. Following which, protamine was given and the sheath is to be removed. Job ID: [id number]
[2018-11-21] MEDS: Famotidine 20 MG TAB PO SCH (19:50)
[2018-11-22] MEDS: Piperacillin/Tazobactam 2.25 GM in Sodium Chloride 0.9% 100 ML IVPB SCH ×3 (00:21→18:34)
[2018-11-22] MEDS ORDERED: Heparin 10,000 UNITS/ 10 ML VIAL ONE (08:03)
[2018-11-22] MEDS: Lisinopril 20 MG TAB PO SCH (08:25)
[2018-11-22] MEDS: Ferrous Sulfate 325 MG TAB PO SCH ×2 (08:26→18:33)
[2018-11-22] MEDS: Amlodipine 10 MG TAB PO SCH (08:27)
[2018-11-22] MEDS: Aspirin 81 mg Enteric Coated Tablet PO SCH (08:27)
[2018-11-22] MEDS: Sevelamer Carbonate 800 MG TAB PO SCH ×3 (08:28→18:33)
[2018-11-22] MEDS: cloNIDine 0.1 MG TAB PO SCH ×2 (08:29→20:49)
[2018-11-22] MEDS: INSULIN GLARGINE SC SCH (08:29)
[2018-11-22] MEDS: Heparin 5,000 UNITS/ML VIAL SC SCH ×2 (08:29→20:49)
[2018-11-22] MEDS: Acetaminophen 500 MG TAB PO PRN ×2 (08:35→20:50)
[2018-11-22] MEDS: traMADol HCl 50 MG TAB PO PRN ×2 (08:35→23:58)
[2018-11-22] MEDS: Clopidogrel Bisulfate 75 MG TAB PO SCH (08:37)
[2018-11-22] MEDS: Metoprolol Tartrate 100 MG TAB PO SCH ×2 (08:41→20:49)
--- NOTE | 2018-11-22 09:54 | PRG ---
DATE OF SERVICE: 11/22/2018 SUBJECTIVE: Ms. Saldivar is a 57-year-old female with ESRD, on maintenance hemodialysis. Yesterday, the patient underwent aortogram of the right lower extremity with ANESTHESIOLOGY CRNA and stent to the right anterior tibial artery. This is due to the patient complaining of ischemic ulcer/right foot. This morning, no new complaints. Denies any chest pain or shortness of breath. OBJECTIVE: VITAL SIGNS: Blood pressure was noted at 155/77, heart rate 58, respiratory rate 16, temperature 98, pulse ox 97%, and respiratory rate 16. GENERAL: Awake, supine, comfortable, not in distress. SKIN: Adequate turgor. HEENT: She has a slightly pale conjunctivae. Anicteric sclerae. No neck mass. No carotid bruits. No JVD. CHEST: No deformities. LUNGS: Clear breath sounds. No wheezing. No crackles. HEART: Normal sinus rhythm. No murmurs, no gallops, and no rubs. ABDOMEN: Globular, soft. Nontender. No masses. EXTREMITIES: No edema. Right big toe erythema. MEDICATIONS: Medications of November 22, 2018, were reviewed. LABORATORY DATA: Laboratories of November 19, 2018; white count 6 and hemoglobin 10.6. On November 22, 2018, glucose 90. On November 19, 2018, BUN 44, creatinine 6.54, and potassium 4.6. ASSESSMENT AND PLAN: 1. End-stage renal disease, stable. We will continue current maintenance hemodialysis of Wednesday, , and Wednesday. Fluid removal only as tolerated. No other changes will be made with the current dialysis regimen. 2. Peripheral vascular disease/right toe cellulitis - status post aortogram with stent placement. Continuing IV antibiotics. Job ID: [id number]
[2018-11-22] MEDS: Famotidine 20 MG TAB PO SCH (20:49)
--- NOTE | 2018-11-22 21:58 | PDOC.PN ---
- Subjective Encounter Start Date: 11/22/18 Encounter Start Time: 14:05 Doing ok. No complaints. - Objective Resuscitation Status - Order Detail: 11/18/18 20:17 Resuscitation Status Routine Resuscitation Status: FULL: Full Resuscitation Vital Signs & Weight: Vital Signs (12 hours) Temp Pulse Resp BP BP Pulse Ox 11/22/18 20:49 138/71 11/22/18 20:00 98.5 F 69 16 133/74 94 L Weight Admit Weight 165 lb Weight 157 lb 9 oz I&O: 11/21/18 11/22/18 11/23/18 06:59 06:59 06:59 Intake Total 720 Balance 720 Result Diagrams: 11/19/18 05:07 11/19/18 05:07 Additional Labs: Accuchecks 11/22/18 11/22/18 11/22/18 21:07 11:31 04:26 POC Glucose 114 H 121 H 90 Phys Exam - Physical Examination Near blindness. Respiratory: no wheezing, no rales, no rhonchi, clear to auscultation bilateral Cardiovascular: RRR, no significant murmur Gastrointestinal: soft, non-tender, no distention, positive bowel sounds Musculoskeletal: no edema Right foot lesion with betadine. Resolving erythema. persistent ulcer. Dx/Plan (1) Diabetic ulcer of right foot associated with diabetes mellitus due to underlying condition Code(s): E08.621 - DIABETES MELLITUS DUE TO UNDERLYING CONDITION W FOOT ULCER; L97.519 - NON-PRS CHRONIC ULCER OTH PRT RIGHT FOOT W UNSP SEVERITY Status: Acute Comment: Continue Zosyn/Vancomycin, WCT for local care, s/p MASSAGE COORDINATOR with stent RLE 11/21/18 (2) Ischemic pain of right foot Code(s): M79.671 - PAIN IN RIGHT FOOT; I99.9 - UNSPECIFIED DISORDER OF CIRCULATORY SYSTEM Status: Acute Comment: Pain control, elevate R foot while in bed, see above (3) DM (diabetes mellitus) type II uncontrolled, periph vascular disorder Code(s): E11.51 - TYPE 2 DIABETES W DIABETIC PERIPHERAL ANGIOPATH W/O GANGRENE; E11.65 - TYPE 2 DIABETES MELLITUS WITH HYPERGLYCEMIA Status: Chronic Comment : Continue home insulin regimen, ISS, ADA (4) ESRD (end stage renal disease) on dialysis Code(s): N18.6 - END STAGE RENAL DISEASE; Z99.2 - DEPENDENCE ON RENAL DIALYSIS Status: Chronic Comment: HD per Renal service (5) Peripheral artery disease Code(s): I73.9 - PERIPHERAL VASCULAR DISEASE, UNSPECIFIED Status: Chronic Comment: Continue dual anti-platelet therapy in next 24h (6) KWESI (acute kidney injury) Code(s): N17.9 - ACUTE KIDNEY FAILURE, UNSPECIFIED Status: Acute (7) Diabetes mellitus Code(s): E11.9 - TYPE 2 DIABETES MELLITUS WITHOUT COMPLICATIONS Status: Chronic Qualifiers: Diabetes mellitus type: type 2 Diabetes mellitus complication status: with kidney complications Qualified Code(s): E11.8 - Type 2 diabetes mellitus with unspecified complications (8) HTN (hypertension) Code(s): I10 - ESSENTIAL (PRIMARY) HYPERTENSION Status: Chronic Qualifiers: Comment: Labile due to ESRD - Plan * May be infectious component, but appears to be largely ischemic in nature. Cant likely transition to po abx (augmentin). * Discussed with patient regarding discharge. She has been bearing weight on the right foot to ambulate to the bathroom. She says it is just she and her at home. Her would not want anyone like HH coming in. She is not sure how they will do at home. She would like to involve her daughter, Judi , H, C in the decision. * Getting HD this afternoon.
[2018-11-23] MEDS: Piperacillin/Tazobactam 2.25 GM in Sodium Chloride 0.9% 100 ML IVPB SCH ×2 (01:10→07:59)
[2018-11-23] MEDS ORDERED: Fentanyl 100 MCG/2 ML VIAL ONE (06:47)
[2018-11-23] MEDS: Lisinopril 20 MG TAB PO SCH (07:54)
[2018-11-23] MEDS: Ferrous Sulfate 325 MG TAB PO SCH (07:55)
[2018-11-23] MEDS: Clopidogrel Bisulfate 75 MG TAB PO SCH (07:55)
[2018-11-23] MEDS: Amlodipine 10 MG TAB PO SCH (07:55)
[2018-11-23] MEDS: Aspirin 81 mg Enteric Coated Tablet PO SCH (07:56)
[2018-11-23] MEDS: Sevelamer Carbonate 800 MG TAB PO SCH ×2 (07:56→12:20)
[2018-11-23] MEDS: Metoprolol Tartrate 100 MG TAB PO SCH (07:56)
[2018-11-23] MEDS: cloNIDine 0.1 MG TAB PO SCH (07:56)
[2018-11-23] MEDS: INSULIN GLARGINE SC SCH (07:58)
[2018-11-23] MEDS: Heparin 5,000 UNITS/ML VIAL SC SCH (07:59)
[2018-11-23 13:05] VITALS: BP 128/65; TEMP 98
== END 2018-11-23 14:51 | disposition home or self-care (01) | DRG 252 ==
LOC: ERS 13:26 → T4-A 16:21
PROVIDERS: ADMIT Family Medicine; ATTEND Family Medicine
PROC: 047K3ZZ Dilation of Right Femoral Artery, Percutaneous Approach (ICD-10-PCS; principal; 2018-11-21)
PROC: 047P34Z Dilation of Right Anterior Tibial Artery with Drug-eluting Intraluminal Device, Percutaneous Approach (ICD-10-PCS; 2018-11-21)
PROC: 047M3ZZ Dilation of Right Popliteal Artery, Percutaneous Approach (ICD-10-PCS; 2018-11-21)
PROC: B4101ZZ Fluoroscopy of Abdominal Aorta using Low Osmolar Contrast (ICD-10-PCS; 2018-11-21)
PROC: B41F1ZZ Fluoroscopy of Right Lower Extremity Arteries using Low Osmolar Contrast (ICD-10-PCS; 2018-11-21)
DX: E11.51 Type 2 diabetes mellitus with diabetic peripheral angiopathy without gangrene (principal); N18.6 End stage renal disease; I50.32 Chronic diastolic (congestive) heart failure; I13.2 Hypertensive heart and chronic kidney disease with heart failure and with stage 5 chronic kidney disease, or end stage renal disease; N17.9 Acute kidney failure, unspecified; E11.621 Type 2 diabetes mellitus with foot ulcer; L97.519 Non-pressure chronic ulcer of other part of right foot with unspecified severity; Z99.2 Dependence on renal dialysis; E66.9 Obesity, unspecified; Z68.32 Body mass index [BMI] 32.0-32.9, adult; R74.8 Abnormal levels of other serum enzymes; D63.1 Anemia in chronic kidney disease; E78.5 Hyperlipidemia, unspecified; E11.22 Type 2 diabetes mellitus with diabetic chronic kidney disease; E11.40 Type 2 diabetes mellitus with diabetic neuropathy, unspecified; Z79.82 Long term (current) use of aspirin
CPT/HCPCS: 36415; 36416; 37224; 37230; 71045; 76942; 80048; 83605; 85007; 85027; 85347; 87040; 90935; 93005; 96365; 96375; C1769; C1874; C1887; G0257; J1644; J1825; J2543; J2720; J3010; J3370; J7050; Q4081; Q9967

== ENCOUNTER 2018-12-08 21:28 | Inpatient (IN) | payer MEDICARE, MEDICAID ==
[2018-12-09 00:08] LABS: #Eosinphils 0.1 thou/uL (0.0-0.7); #Monocytes 0.6 thou/uL (0.11-0.59); #Neutrophils 5.9 thou/uL (1.40-6.50); %Basophils 0.1 % (0.0-1.0); %Eosinophils 0.9 % (0.0-10.0); %Lymphocytes 13.5 % (21.0-51.0); %Monocytes 7.5 % (0.0-10.0); Hemoglobin 10.4 g/dL (12.0-16.0); Mean Corpuscular Hemoglobin 30.6 pg (27.0-31.0); Mean Corpuscular Volume 95.4 fL (78.0-98.0); Mean Platelet Volume 6.5 fL (7.4-10.4); Platelet Count 315 thou/uL (130-400); RBC Distribution Width 14.3 % (11.5-14.5); Red Blood Cell (RBC) Count 3.42 mill/uL (4.20-5.40); White Blood Cell (WBC) Count 7.5 thou/uL (4.8-10.8)
[2018-12-09 00:30] LABS: ALT (SGPT) Less than 7 U/L (8-55); AST (SGOT) 15 U/L (5-34); Albumin 4.1 g/dL (3.5-5.0); Alkaline Phosphatase 135 U/L (40-150); Anion Gap 16 mmol/L (10-20); BUN (Urea Nitrogen) 26 mg/dL (9.8-20.1); Bilirubin, Total 0.4 mg/dL (0.2-1.2); Calc. Creatinine Clearance 0 mL/min (70-130); Calcium 9.7 mg/dL (7.8-10.44); Carbon Dioxide 33 mmol/L (22-29); Chloride 92 mmol/L (98-107); Estimated GFR-MDRD 11; Globulin 5.2 g/dL (2.4-3.5); Glucose 216 mg/dL (70-105); Potassium 4.5 mmol/L (3.5-5.1); Protein, Total 9.3 g/dL (6.0-8.3); Sodium 136 mmol/L (136-145)
[2018-12-09] MEDS ORDERED: HYDROcodone/Acetaminophen 5/325 mg Tablet PO PRN (02:25)
[2018-12-09] MEDS ORDERED: HumaLOG 300 UNITS/3 ML VIAL SC PRN (02:25)
[2018-12-09] MEDS ORDERED: Ondansetron PF 4 MG/2 ML Vial IVP PRN (02:25)
[2018-12-09] MEDS ORDERED: Dextrose 50% Abboject 50 ML SYRINGE SLOW IVP PRN (02:25)
[2018-12-09] MEDS ORDERED: Bisacodyl 5 MG TAB PO PRN (02:25)
[2018-12-09] MEDS ORDERED: Acetaminophen 325 MG TAB PO PRN (02:25)
[2018-12-09] MEDS ORDERED: Dextrose 5% in Water 1,000 ML IV PRN (02:25)
[2018-12-09] MEDS ORDERED: hydrALAZINE 20 MG/ML VIAL SLOW IVP PRN (02:25)
--- NOTE | 2018-12-09 02:34 | HP ---
PRIMARY CARE PHYSICIAN: Dr. Darling Gregory. CHIEF COMPLAINT: Worsening pain and worsening infection of right great toe ulcer. MACHINE LOAD CLERK: Dr. Monk. HISTORY OF PRESENT ILLNESS: The patient is a 57-year-old female with past medical history of end-stage renal disease, on dialysis Wednesday, , and Wednesday; type 2 diabetes; peripheral vascular disease; diastolic heart failure; hypertension; dyslipidemia; and chronic anemia who presents to the emergency department with right great toe ulcer and pain. The patient was recently admitted for the similar complaint and was started on IV antibiotics. The patient was seen by Vascular Surgery, who performed arteriogram with right lower extremity runoff. The patient has stent placed in right anterior tibial artery, in the proximal SFA, and right popliteal arteries. The patient was discharged on antibiotics. She remained to be stable. The patient was accompanied by her daughter who provided the history. The patient reports that she has been in lot of pain. Her right foot diabetic ulcers does not seem to be improving at this point. The patient reports that she has been taking doxycycline without any improvement. The patient follows up with a foot doctor in [place], unable to recall her name. The patient also gets dialysis today through Dr. Monk. PAST MEDICAL HISTORY: Diabetic ulcer; peripheral vascular disease, ischemic; right foot pain; diabetes mellitus type; end-stage renal disease; hypertension. CURRENT MEDICATIONS: Include; 1. Aspirin. 2. Tramadol. 3. Metoprolol. 4. Amlodipine. 5. Lisinopril. 6. Clonidine. 7. Renvela. 8. Levemir. 9. Glipizide. 10. Doxycycline. 11. Bentyl. 12. Vitamin D3. 13. Zofran. 14. Valtrex. PAST SURGICAL HISTORY: Includes hysterectomy, shunting of her veins, dialysis, fistula, left eye surgery. SOCIAL HISTORY: Denies any tobacco, alcohol, or illicit drugs. FAMILY HISTORY: Positive for hypertension and diabetes. REVIEW OF SYSTEMS: 10-point review of system negative other than mentioned in the HPI. PHYSICAL EXAMINATION: VITAL SIGNS: Blood pressure 166/73, pulse 99, respiration rate 18, and O2 saturation 100% on room air. GENERAL: The patient is alert, has poor vision and communicates to her daughter due to language barrier. HEENT: Head atraumatic. Eyes, pupils equal, round, and reactive. Ears and nose, no bleeding or discharge noted. Mouth, no exudate. NECK: No lymphadenopathy. HEART: Regular rate and rhythm. No murmurs, rubs, or gallops. LUNGS: Clear bilaterally. No wheezes or rales noted. ABDOMEN: Soft. Bowel sounds positive. Nontender. EXTREMITIES: No edema noted. Right great toe noted to have ulcers and discoloration noted. The patient also lost her toe which cannot be seen. Foot also appears to have redness up to mid point and it is tender throughout. Pulses not appreciated. NEUROLOGICAL: The patient is alert. SKIN: Normal examination except as mentioned in the extremities. LABORATORY DATA: Reviewed. Sodium 136, potassium 4.5, chloride 92, carbon dioxide 33, BUN 26, creatinine 4.23, glucose 216. Lactic acid 0.9. White blood cell count 7.5, hemoglobin 10.4, hematocrit 32.6, and platelets 315. Foot x-ray reviewed, negative for acute fracture, official read pending at this point. ASSESSMENT AND PLAN: 1. Diabetic foot ulcers, right great toe worsening ulcer with discoloration noted, possibly due to poor blood supply. may need amputation 2. End-stage renal disease. 3. Hypertension. 4. Diabetes type 2. 5. Peripheral vascular disease. 6. Gastroesophageal reflux disease. 7. Chronic diastolic CHF PLAN: 1. The patient was given vancomycin in the ER. We will continue vancomycin at this point. I have ordered MRI of the foot to rule out osteomyelitis. Follow up cultures. Pain control with [place] p.r.n. 2. Hypertension. BP noted to be elevated. We will continue home medications. Hydralazine p.r.n. added. 3. Peripheral vascular disease. Continue home medication. The patient was seen by Vascular Surgery during last admission with stenting performed. 4. We will order a CRP and ESR. Consider Podiatry consult in the AM 5. We will continue home insulin and also add SSI. 6. Nephrology was consulted by the ER to perform scheduled dialysis. The patient's dialysis schedule is Wednesday, , and Wednesday. 7. Continue home medications as prescribed. 8. Patient is a full code per her daughter. Medical power of claims attorney, and daughter. 9. DVT prophylaxis, SQ heparin. Job ID: [id number] [facility]
[2018-12-09 02:47] LABS: #Eosinphils 0.1 thou/uL (0.0-0.7); #Lymphocytes 1.1 thou/uL (1.20-3.40); #Monocytes 0.7 thou/uL (0.11-0.59); #Neutrophils 5.4 thou/uL (1.40-6.50); %Basophils 0.2 % (0.0-1.0); %Eosinophils 1.4 % (0.0-10.0); %Lymphocytes 15.3 % (21.0-51.0); %Neutrophils 74.1 % (42.0-75.0); Hemoglobin 10.2 g/dL (12.0-16.0); Mean Corpuscular HGB CONC 32.4 g/dL (32.0-36.0); Mean Corpuscular Hemoglobin 30.9 pg (27.0-31.0); Mean Corpuscular Volume 95.3 fL (78.0-98.0); Mean Platelet Volume 6.5 fL (7.4-10.4); Platelet Count 320 thou/uL (130-400); RBC Distribution Width 14.2 % (11.5-14.5); White Blood Cell (WBC) Count 7.3 thou/uL (4.8-10.8)
[2018-12-09 03:09] LABS: Anion Gap 15 mmol/L (10-20); BUN (Urea Nitrogen) 28 mg/dL (9.8-20.1); Calc. Creatinine Clearance 0 mL/min (70-130); Calcium 9.3 mg/dL (7.8-10.44); Carbon Dioxide 31 mmol/L (22-29); Chloride 93 mmol/L (98-107); Estimated GFR-MDRD 10; Glucose 235 mg/dL (70-105); Potassium 4.2 mmol/L (3.5-5.1); Sodium 135 mmol/L (136-145)
--- NOTE | 2018-12-09 07:45 | CON ---
DATE OF CONSULTATION: SERVICE: Renal Medicine. HISTORY OF PRESENT ILLNESS: Ms. Saldivar is a 57-year-old female with ESRD - maintenance hemodialysis and admitted for nonhealing right toe ulceration/infection. Please note that the patient was recently admitted at the hospital and at that time, she underwent operative procedure, where an aortogram of the right lower extremity was done and a stent to the right anterior tibial artery and a CORK INSULATOR HELPER of the right popliteal was done by Dr. Sepulveda. We are now being consulted for maintenance hemodialysis. She did receive her dialysis yesterday. REVIEW OF SYSTEMS: No chest pain. No shortness of breath. No nausea. No vomiting. Positive for right grade 2 ulceration, nonhealing wound. No fever or chills. No hematochezia. No melena. No hematemesis. No nausea or vomiting. No abdominal pain. Appetite and energy level are fair. MEDICATIONS: 1. Amlodipine 10 mg daily. 2. Myton 5/325 q.4 p.r.n. 3. Ecotrin 81 mg once a day. 4. Clonidine 0.1 mg b.i.d. 5. Plavix 75 mg once a day. 6. Heparin 5000 units subcu t.i.d. 7. Metoprolol tartrate 100 mg b.i.d. 8. Humalog sliding scale. 9. Renvela 800 mg p.o. t.i.d. 10. Status post vancomycin. PAST MEDICAL HISTORY: 1. ESRD and currently on maintenance hemodialysis - secondary to a presumed diabetic nephropathy. 2. Type 2 diabetes mellitus. 3. Coronary artery disease. 4. Hypothyroidism. 5. Peripheral vascular disease. 6. Diabetic neuropathy. 7. Hyperlipidemia. 8. Status post CHF. 9. Longstanding hypertension. PAST SURGICAL HISTORY: Status post hysterectomy, status post AV fistula placement, status post cuffed hemodialysis catheter placement. The patient is also status post aortogram with a right lower extremity runoff with CORK INSULATOR HELPER and stent to the right anterior tibial artery and angioplasty of the right popliteal. SOCIAL HISTORY: The patient is . She lives in [place]. Currently, no history of smoking or alcohol intake. She has 4 children. She lives with her . No IV drug abuse. Status post blood transfusion. Sedentary lifestyle. ALLERGIES: NONE. TRAUMA: None. IMMUNIZATIONS: Up-to-date. HOSPITALIZATIONS: Please see past medical history. FAMILY HISTORY: No family history of ESRD. She has a right foot dressing noted. LABORATORY DATA: Laboratories of December 09, 2018; white count 7.2, hemoglobin 10.2. Sodium 135, potassium 4.2, chloride 93, carbon dioxide 31, BUN 28, creatinine 4.51, glucose 235, and calcium 9.3. On December 08, 2018; x-ray of the right foot, official reading is pending. ASSESSMENT AND PLAN: 1. Nonhealing right great toe infection - consider re-evaluation by Surgery. Continue IV antibiotics - the patient is status post vancomycin. 2. End-stage renal disease, stable. We will continue current maintenance hemodialysis of Wednesday, , and Wednesday. She is tolerating current dialysis regimen. Review of the last Kt/V suggests she is adequately dialyzed today with the current dialysis regimen. Agree with current management. Job ID: [id number]
[2018-12-09] MEDS: Clopidogrel Bisulfate 75 MG TAB PO SCH (07:51)
[2018-12-09] MEDS: Metoprolol Tartrate 25 MG TAB PO SCH ×2 (07:51→21:39)
[2018-12-09] MEDS: Aspirin 81 mg Enteric Coated Tablet PO SCH (07:51)
[2018-12-09] MEDS: Sevelamer Carbonate 800 MG TAB PO SCH ×3 (07:51→15:08)
[2018-12-09] MEDS: cloNIDine 0.1 MG TAB PO SCH ×2 (07:52→21:39)
[2018-12-09] MEDS: Heparin 5,000 UNITS/ML VIAL SC SCH ×3 (07:52→21:41)
[2018-12-09] MEDS: INSULIN GLARGINE SC SCH (07:52)
[2018-12-09] MEDS: Amlodipine 10 MG TAB PO SCH (07:52)
[2018-12-09] MEDS ORDERED: INSULIN DETEMIR 22 UNIT SC SCH (08:00)
--- NOTE | 2018-12-09 08:11 | RAD ---
THREE VIEWS RIGHT FOOT: DATE: 12/08/2018. HISTORY: Chronic right foot pain. COMPARISON: 11/18/2018. FINDINGS: There is no evidence of a fracture or dislocation. Posterior and plantar calcaneal enthesophytes are identified. The Lisfranc joint is normally aligned. Vascular calcifications are seen about the lorena t. Views of the foot are stable from prior exam. IMPRESSION: Stable views right foot without evidence of an acute osseous abnormality. POS: [facility]
[2018-12-09] MEDS ORDERED: VANCOMYCIN IVPB PRN (08:52)
[2018-12-09] MEDS ORDERED: ABX IVPB PRN (08:52)
[2018-12-09] MEDS ORDERED: Vancomycin HCl 1 GM in Premix Bag 1 BAG IVPB SCH ×2 (09:00→10:00)
[2018-12-09] MEDS ORDERED: Vancomycin HCl 500 MG in Sodium Chloride 0.9% 100 ML IVPB SCH (10:00)
[2018-12-09] MEDS ORDERED: HOLD VANCOMYCIN FOR LEVEL >20 FS SCH (10:00)
[2018-12-09] MEDS ORDERED: Vancomycin HCl 1.25 GM in Sodium Chloride 0.9% 250 ML 250 ML IVPB SCH (10:00)
[2018-12-09] MEDS ORDERED: Vancomycin Sliding Scale 1 EACH FS ONE (10:00)
[2018-12-09] MEDS ORDERED: Vancomycin HCl 750 MG in Sodium Chloride 0.9% 250 ML 250 ML IVPB SCH (10:00)
[2018-12-09 11:28] VITALS: BMI 33.4
--- NOTE | 2018-12-09 13:48 | MRI ---
MRI OF THE RIGHT FOOT WITHOUT CONTRAST: Date: 12/09/18 INDICATINO: Right great toe ulcer. COMPARISON: None. FINDINGS: Surface marker was placed within the region of interest overlying the great toe. Motion artifact limi ts image detail. There is some cortical irregularity and abnormal signal intensity involving the plan tar aspect of the great toe distal phalanx suspicious for changes of osteomyelitis. There is a suspec nancy wound seen adjacent to the tip of the great toe distal phalanx on image 7 of series and image 15 of series 6. There is diffuse edema within the intrinsic foot musculature. No additional marrow signa l abnormality is evident. There is moderate great toe MTP osteoarthritic change. Visualized aspects o f the Lisfranc ligament appear intact. IMPRESSION: 1. Abnormal cortical irregularity and signal involving the distal aspect of the distal phalanx of th e great toe suspicious for changes of osteomyelitis. There is a suspected adjacent soft tissue wound near this site. Recommend correlation with clinical exam. 2. Diffuse edema within the intrinsic foot musculature may be related to denervation, atrophy, or my ositis. POS: [facility]
--- NOTE | 2018-12-09 14:19 | PDOC.EVN ---
Event Note - Event Note Event Note: Chart reviewed. Pt seen. Discussed with general surgery service, they will see pt as well. Will follow.
[2018-12-09] MEDS ORDERED: traMADol HCl 50 MG TAB PO PRN ×2 (14:41)
[2018-12-09] MEDS ORDERED: Acetaminophen 500 MG TAB PO PRN (14:41)
--- NOTE | 2018-12-09 15:29 | HP ---
HISTORY OF PRESENT ILLNESS: Veronica Saldivar is a 57-year-old female presented to the hospital because of a gangrenous right toe. Dr. Sepulveda on November 21, 2018, performed angiogram with runoff revealing severe disease. He performed DATABASE MANAGER stenting of superficial femoral artery and noted that she had minimal macrovascular run off to the foot. The patient since admission is having tolerable pain in her right great toe. There is no cellulitis, no infection. The patient is diabetic, end-stage renal disease. ALLERGIES: NONE. TOBACCO: None. ALCOHOL: None. MEDICATIONS: 1. Aspirin. 2. Tramadol. 3. Metoprolol. 4. Amlodipine. 5. Lisinopril. 6. Clonidine. 7. Renvela. 8. Levemir. 9. Glipizide. 10. Doxycycline. 11. Bentyl. 12. Vitamin D3. PAST MEDICAL HISTORY: PAD, dry gangrene, right great toe, end-stage renal disease, hypertension, diabetes mellitus type 2, GERD, chronic diastolic dysfunction. PAST SURGICAL HISTORY: Hysterectomy in November 2016, left upper arm dialysis graft tapered with resultant ischemia left hand requiring DRIL procedure, left arm, vein harvested from the left thigh. This improved her hand function but is not normal. PHYSICAL EXAMINATION: VITAL SIGNS: 4 feet 10 inches, 33 BMI, 98.2, 74, 145/78. LUNGS: Clear to auscultation. HEART: Regular rate and rhythm without no murmur or gallop. ABDOMEN: Soft and nontender. Palpable femoral pulses. Good bruit in left upper arm with dialysis graft. The patient has ischemic right great toe. There is no infection. ASSESSMENT AND PLAN: Peripheral artery disease with end-stage renal disease and diabetes with small vessel disease not amenable to further revascularization. The patient is at high risk for having a [id number] amputation. Amputation of the right great toe without risk of poor healing and possible necessitating below-knee amputation. This could occur anyway even without surgical treatment. I have discussed these issues with the family and the patient's pain is minimal, well controlled with Tylenol and Ultram, and I would recommend that they continue washing the toe with soap and water daily, apply antibiotic ointment as needed, use of Betadine if desired. Follow up in my office in 2 to 3 weeks. If the pain worsens or she develops infection, we may have to embark on other therapy, but currently at this time, surgical therapy is not warranted. We would resume her diet. I will see her in my office in 2 weeks. In my opinion, she could be discharged home. If antibiotics were to be given, she can take it orally or Dr. Monk can administer vancomycin with dialysis once a week for a couple of weeks. Job ID: [id number]
[2018-12-10 07:59] VITALS: TEMP 98
[2018-12-10] MEDS: INSULIN GLARGINE SC SCH (08:05)
[2018-12-10] MEDS: Aspirin 81 mg Enteric Coated Tablet PO SCH (08:06)
[2018-12-10] MEDS: Metoprolol Tartrate 25 MG TAB PO SCH (08:06)
[2018-12-10] MEDS: Clopidogrel Bisulfate 75 MG TAB PO SCH (08:06)
[2018-12-10] MEDS: cloNIDine 0.1 MG TAB PO SCH (08:06)
[2018-12-10] MEDS: Heparin 5,000 UNITS/ML VIAL SC SCH ×2 (08:07→15:47)
[2018-12-10] MEDS: Sevelamer Carbonate 800 MG TAB PO SCH ×3 (08:07→16:58)
[2018-12-10] MEDS: Amlodipine 10 MG TAB PO SCH (08:07)
[2018-12-10 08:08] VITALS: BP 154/79
[2018-12-10 08:27] LABS: Vancomycin, Random 17.6 ug/mL (See Comment)
--- NOTE | 2018-12-10 11:52 | PRG ---
DATE OF SERVICE: SUBJECTIVE: Ms. Saldivar is a 57-year-old female with ESRD and followed up by the Renal Service for maintenance hemodialysis. The patient was admitted due to a nonhealing diabetic foot ulcer. Recommendation by Surgery is to continue IV antibiotics. No new complaints today. OBJECTIVE: VITAL SIGNS: Blood pressure is 151/81, heart rate 65, respiratory rate 16, temperature 98, and pulse ox 96%. GENERAL: Awake, alert, comfortable. SKIN: Adequate turgor. HEENT: She has pinkish conjunctivae, anicteric sclerae. NECK: No neck mass. No carotid bruits. No JVD. CHEST: No deformities. LUNGS: Clear breath sounds. HEART: Normal sinus rhythm. No murmur. No gallops. No rubs. ABDOMEN: Globular, soft, nontender, no masses. EXTREMITIES: No edema. Positive for right foot dressing. MEDICATIONS: Medications of November 30, 2018, reviewed. LABORATORY DATA: December 09, 2018; white count 7.3, hemoglobin 10.2. Sodium 135, potassium 4.2, chloride 93, carbon dioxide 31, BUN 28, creatinine 4.51, glucose 235, and calcium 9.3. ASSESSMENT/PLAN: 1. Right diabetic foot ulcer-continue IV vancomycin for a total of 2 weeks. IV vancomycin will be given at the dialysis unit. 2. End-stage renal disease, stable. We will schedule her for dialysis as an outpatient. The plan is to discharge this patient this morning. I did instruct the patient to report for her dialysis treatment this afternoon. 3. Overall, agree with current management. Job ID: [id number]
--- NOTE | 2018-12-12 08:57 | DIS ---
DATE OF ADMISSION: 12/09/2018 DATE OF DISCHARGE: 12/10/2018 PRIMARY CARE PROVIDER: [facility]. DISCHARGE DIAGNOSES: 1. Right great toe infection. 2. Osteomyelitis. CONSULTATIONS DURING THIS HOSPITALIZATION: 1. Nephrology, Humberto Blue MD. 2. General Surgery, Maximo Gonzalez MD. CONDITION OF PATIENT ON THE DAY OF DISCHARGE: Stable. I assessed, Ms. Saldivar on the day of discharge. She denies any chest pain or shortness of breath. Vital signs are stable. S1 and S2 are heard, regular. Lungs are clear to auscultation bilaterally. DISCHARGE MEDICATIONS: 1. Vancomycin with dialysis per Nephrology Service. 2. Ultram 50 mg every 4 hours as needed. 3. Norvasc 10 mg daily. 4. Aspirin 81 mg daily. 5. Clonidine 0.1 mg 2 times a day. 6. Levemir insulin 22 units in the morning. 7. Lisinopril 20 mg daily. 8. Lopressor 100 mg 2 times a day. 9. Renvela 4 tablets 3 times a day. 10. Plavix 75 mg daily. 11. Ferrous sulfate 325 mg 2 times a day. HOSPITAL COURSE: Ms. Saldivar is a pleasant 57-year-old lady, who was admitted to [facility] for right great toe infection. Please refer to Dr. Martinez's history and physical note for further details. She was seen by Nephrology Service for maintenance dialysis. She was also seen by General Surgery Service. MRI of the right foot without contrast on December 09 showed abnormal cortical irregularity and signal involving the distal aspect of the distal phalanx of the great toe, suspicious for changes of osteomyelitis. She has been cleared for discharge by General Surgery Service. They will follow up with her as outpatient. Nephrology Service will arrange for vancomycin with dialysis. Many thanks for allowing me to participate in your patient's care. Please feel free to contact me with any questions or concerns. DISCHARGE DESTINATION: Home. TIME SPENT: Total amount of time spent coordinating this discharge: 33 minutes. Job ID: [id number]
== END 2018-12-10 19:50 | disposition home or self-care (01) | DRG 638 ==
LOC: ERS 21:28 → T4-B 12-09 02:24
PROVIDERS: ADMIT Family Medicine; ATTEND Family Medicine
DX: E11.621 Type 2 diabetes mellitus with foot ulcer (principal); I50.32 Chronic diastolic (congestive) heart failure; I13.2 Hypertensive heart and chronic kidney disease with heart failure and with stage 5 chronic kidney disease, or end stage renal disease; N18.6 End stage renal disease; L97.519 Non-pressure chronic ulcer of other part of right foot with unspecified severity; I73.9 Peripheral vascular disease, unspecified; K21.9 Gastro-esophageal reflux disease without esophagitis; E11.40 Type 2 diabetes mellitus with diabetic neuropathy, unspecified; I25.10 Atherosclerotic heart disease of native coronary artery without angina pectoris; E78.00 Pure hypercholesterolemia, unspecified; E11.22 Type 2 diabetes mellitus with diabetic chronic kidney disease; D64.9 Anemia, unspecified; Z98.890 Other specified postprocedural states; Z79.82 Long term (current) use of aspirin; Z79.899 Other long term (current) drug therapy; Z90.710 Acquired absence of both cervix and uterus; Z99.2 Dependence on renal dialysis
CPT/HCPCS: 36415; 36416; 80048; 80053; 80202; 83605; 85025; 85652; 86140; 87040; J1644; J1825; J2405; J3370; J7050

== ENCOUNTER 2019-09-27 18:17 | Emergency (ER) | payer MEDICARE, MEDICAID ==
[~2019-09-27 18:17] MED LIST changes: -ISOVUE-370 76%-LOCM 1 ML ONE; +Iopamidol-370 76% 500 ML 1 ML ONE
[2019-09-27 19:12] LABS: #Eosinphils 0.1 thou/uL (0.0-0.7); #Lymphocytes 1.6 thou/uL (1.20-3.40); #Monocytes 0.6 thou/uL (0.11-0.59); #Neutrophils 5.7 thou/uL (1.40-6.50); %Basophils 0.1 % (0.0-1.0); %Eosinophils 1.8 % (0.0-10.0); %Lymphocytes 19.8 % (21.0-51.0); %Monocytes 7.1 % (0.0-10.0); %Neutrophils 71.2 % (42.0-75.0); Hemoglobin 12.5 g/dL (12.0-16.0); Mean Corpuscular HGB CONC 34.1 g/dL (32.0-36.0); Mean Corpuscular Hemoglobin 31.3 pg (27.0-31.0); Mean Corpuscular Volume 91.9 fL (78.0-98.0); Mean Platelet Volume 7.1 fL (7.4-10.4); Platelet Count 205 thou/uL (130-400)
[2019-09-27 19:39] LABS: ALT (SGPT) 9 U/L (8-55); AST (SGOT) 17 U/L (5-34); Alkaline Phosphatase 143 U/L (40-110); Anion Gap 14 mmol/L (10-20); BUN (Urea Nitrogen) 25 mg/dL (9.8-20.1); Bilirubin, Total 0.4 mg/dL (0.2-1.2); Calc. Creatinine Clearance 0 mL/min (70-130); Carbon Dioxide 24 mmol/L (22-29); Chloride 102 mmol/L (98-107); Estimated GFR-MDRD 12; Globulin 3.9 g/dL (2.4-3.5); Glucose 207 mg/dL (70-105); Lipase 160 U/L (8-78); Potassium 3.3 mmol/L (3.5-5.1); Protein, Total 7.9 g/dL (6.0-8.3); Sodium 137 mmol/L (136-145)
--- NOTE | 2019-09-27 20:36 | CT ---
EXAM: CT abdomen and pelvis with IV contrast PROVIDED CLINICAL HISTORY: Abdominal pain COMPARISON: 08/12/2018 FINDINGS: The visualized lung bases are free of significant opacity. The solid abdominal organs demonstrate an unremarkable CT appearance. There is no bowel dilatation, inflammatory fat stranding, free fluid or free air apparent. There is n o evidence for appendicitis. Prominent distention of the gallbladder is noted, similar to prior. No evidence for pericholecystic inflammatory change. No regional lymph node enlargement apparent. Multiple vascular calcifications are seen. The osseous s tructures demonstrate no concerning lytic or blastic lesions. IMPRESSION: No evidence for an acute process.
[2019-09-27 21:25] LABS: Bacteria/HPF None Seen HPF (None Seen); Bilirubin Negative (Negative); Blood, Urine Negative (Negative); Clarity Clear (Clear); Glucose, Urine (Dipstick) 500 mg/dL (Negative); Leukocyte Negative Leu/uL (Negative); Nitrite Negative (Negative); Protein, Urine (Dipstick) 600 mg/dL (Neg-Trace); RBC/HPF 0-3 HPF (0-3); Squamous Epithelial 0-3 HPF (0-3); Urobilinogen Normal mg/dL (Less than 2); WBC/HPF 0-3 HPF (0-3)
== END 2019-09-27 23:24 | disposition home or self-care (01) ==
LOC: ERS 18:17
DX: R10.30 Lower abdominal pain, unspecified (principal); I12.9 Hypertensive chronic kidney disease with stage 1 through stage 4 chronic kidney disease, or unspecified chronic kidney disease; E11.22 Type 2 diabetes mellitus with diabetic chronic kidney disease; N18.9 Chronic kidney disease, unspecified; E78.5 Hyperlipidemia, unspecified; E78.00 Pure hypercholesterolemia, unspecified; Z99.2 Dependence on renal dialysis; Z79.899 Other long term (current) drug therapy; Z79.82 Long term (current) use of aspirin; Z79.4 Long term (current) use of insulin
CPT/HCPCS: 36415; 51701; 74177; 80053; 81003; 81015; 83690; 85025; 87086; A4353; Q9967

== ENCOUNTER 2019-10-13 18:33 | Inpatient (IN) | payer MEDICARE, MEDICAID ==
--- NOTE | 2019-10-13 19:21 | RAD ---
Portable frontal chest radiograph: 10/13/2019 COMPARISON: 11/18/2018 HISTORY: Cough and fever FINDINGS: Lungs are clear. Stable prominence of the cardiac silhouette and mild elevation of the righ t hemidiaphragm. IMPRESSION: No acute findings.
[2019-10-13] MEDS ORDERED: Cefepime 2 GM VIAL ONE (19:40)
[2019-10-13] MEDS ORDERED: Acetaminophen 500 MG TAB ONE (19:40)
[2019-10-13 19:54] LABS: #Basophils 0.1 thou/uL (0.0-0.2); #Eosinphils 0.1 thou/uL (0.0-0.7); #Lymphocytes 0.6 thou/uL (1.20-3.40); #Monocytes 0.8 thou/uL (0.11-0.59); #Neutrophils 5.9 thou/uL (1.40-6.50); %Basophils 0.7 % (0.0-1.0); %Lymphocytes 8.6 % (21.0-51.0); %Monocytes 10.2 % (0.0-10.0); %Neutrophils 79.5 % (42.0-75.0); Hemoglobin 11.4 g/dL (12.0-16.0); Mean Corpuscular HGB CONC 34.2 g/dL (32.0-36.0); Mean Corpuscular Hemoglobin 31.5 pg (27.0-31.0); Mean Platelet Volume 7.7 fL (7.4-10.4); Platelet Count 172 thou/uL (130-400); RBC Distribution Width 13.1 % (11.5-14.5); Red Blood Cell (RBC) Count 3.61 mill/uL (4.20-5.40); White Blood Cell (WBC) Count 7.4 thou/uL (4.8-10.8)
[2019-10-13 20:24] LABS: ALT (SGPT) 10 U/L (8-55); AST (SGOT) 18 U/L (5-34); Albumin 4.2 g/dL (3.5-5.0); Alkaline Phosphatase 122 U/L (40-110); Anion Gap 15 mmol/L (10-20); BUN (Urea Nitrogen) 23 mg/dL (9.8-20.1); Bilirubin, Total 0.4 mg/dL (0.2-1.2); Calc. Creatinine Clearance 0 mL/min (70-130); Calcium 9.1 mg/dL (7.8-10.44); Carbon Dioxide 26 mmol/L (22-29); Chloride 100 mmol/L (98-107); Estimated GFR-MDRD 11; Globulin 3.9 g/dL (2.4-3.5); Glucose 125 mg/dL (70-105); Potassium 4.2 mmol/L (3.5-5.1); Protein, Total 8.1 g/dL (6.0-8.3); Sodium 137 mmol/L (136-145)
[2019-10-13] MEDS ORDERED: Oseltamivir 6 MG/ML ORAL SUSP PO SCH (20:45)
[2019-10-13] MEDS ORDERED: Acetaminophen 650 MG Suppository PR PRN (22:10)
--- NOTE | 2019-10-13 22:27 | PDOC.HHP ---
Hospitalist HPI - History of Present Illness Fever and productive cough History of Present Illness: Ms. Saldivar presents complaining of fever and feeling generally unwell since yesterday. She developed a cough productive for excessive clear sputum. She reports redness in her eyes, with some purulent discharge. Reports feeling weak. She has ESRD and has dialysis 3 x a week, last dialysis session was this morning which she completed without trouble. At present she complains of feeling completely worn out. She is usually tired after dialysis but feels worse than normal. In the ED she was noted to be febrile with a temp of 102.3, she was tachy as well. Started on IV Abx with Vanc and cefepime. CXR was unremarkable Labs notable for elevated neutrophils, and normal lactic acid. LFTs normal. She tested positive for Flu, type A and treated with Tamiflu (renally dosed). Hospitalist ROS - Review of Systems Constitutional: reports: fever, chills, weakness, malaise Eyes: reports: redness (some lid lag but due to previous eye surgeries) Respiratory: reports: cough, sputum (clear) Gastrointestinal: denies: nausea, vomiting, abdominal pain, diarrhea, constipation, melena, hematochezia, other Musculoskeletal: denies: neck pain, shoulder pain, arm pain, back pain, hand pain, leg pain, foot pain, other Skin: denies: rash, lesions, nickolas, bruising, other Neurological: denies: weakness, numbness, incoordination, change in speech, confusion, seizures, other Hospitalist History - Past Medical History Cardiac: reports: HTN, Hyperlipidemia Renal/: reports: Other (ESRD/HD) Endocrine: reports: Diabetes Other Medical History: Mass to head. - Past Surgical History Past Surgical History: reports: (x5), Hysterectomy, Other (Dialysis shunt to right chest fistula to left arm bilateral eye surgeries) - Social History Smoking Status: Never smoker Alcohol: reports: None Living Situation: With Family Activity level: wheelchair bound - Exam General Appearance: ill appearing Eye - other findings: Conjunctival redness bilaterally ENT: dry oral mucosa Neck: supple, no lymphadenopathy Heart - other findings: tachycardic Respiratory: CTAB, no wheezes, no rales, no ronchi Gastrointestinal: soft, non-tender, non-distended, normal bowel sounds, no guarding, no rigidity Extremities: no edema Neurological: cranial nerve grossly intact, normal sensation to touch Musculoskeletal: normal tone, generalized weakness Psychiatric: A&O x 3 Hospitalist Results - Labs Result Diagrams: 10/13/19 19:30 10/13/19 19:30 Lab results: WBC 7.4 thou/uL (4.8-10.8) 10/13/19 19:30 Hgb 11.4 g/dL (12.0-16.0) L 10/13/19 19:30 Hct 33.3 % (36.0-47.0) L 10/13/19 19:30 MCV 92.0 fL (78.0-98.0) 10/13/19 19:30 Plt Count 172 thou/uL (130-400) 10/13/19 19:30 Neutrophils % 79.5 % (42.0-75.0) H 10/13/19 19:30 Sodium 137 mmol/L (136-145) 10/13/19 19:30 Potassium 4.2 mmol/L (3.5-5.1) 10/13/19 19:30 Chloride 100 mmol/L (98-107) 10/13/19 19:30 Carbon Dioxide 26 mmol/L (22-29) 10/13/19 19:30 BUN 23 mg/dL (9.8-20.1) H 10/13/19 19:30 Creatinine 4.14 mg/dL (0.6-1.1) H 10/13/19 19:30 Glucose 125 mg/dL (70-105) H 10/13/19 19:30 Lactic Acid 1.5 mmol/L (0.5-2.2) 10/13/19 19:30 Calcium 9.1 mg/dL (7.8-10.44) 10/13/19 19:30 Total Bilirubin 0.4 mg/dL (0.2-1.2) 10/13/19 19:30 AST 18 U/L (5-34) 10/13/19 19:30 ALT 10 U/L (8-55) 10/13/19 19:30 Alkaline Phosphatase 122 U/L (40-110) H 10/13/19 19:30 B-Natriuretic Peptide 553.1 pg/mL (0-100) H 10/13/19 19:30 Serum Total Protein 8.1 g/dL (6.0-8.3) 10/13/19 19:30 Albumin 4.2 g/dL (3.5-5.0) 10/13/19 19:30 - EKG Interpretation EKG: Sinus tachycardia, HR 105 Hospitalist H&P A/P - Problem (1) Febrile Code(s): R50.9 - FEVER, UNSPECIFIED Status: Acute (2) Influenza A Code(s): J10.1 - FLU DUE TO OTH IDENT INFLUENZA VIRUS W OTH RESP MANIFEST Status: Acute (3) Generalized weakness Code(s): R53.1 - WEAKNESS Status: Acute (4) Tachycardia Code(s): R00.0 - TACHYCARDIA, UNSPECIFIED Status: Acute (5) DM type 2 (diabetes mellitus, type 2) Status: Chronic Qualifiers: Diabetes mellitus complication status: with kidney complications Diabetes mellitus complication detail: with chronic kidney disease Chronic kidney disease stage: on chronic dialysis (6) HLD (hyperlipidemia) Code(s): E78.5 - HYPERLIPIDEMIA, UNSPECIFIED Status: Chronic Qualifiers: Hyperlipidemia type: unspecified Qualified Code(s): E78.5 - Hyperlipidemia , unspecified (7) HTN (hypertension) Code(s): I10 - ESSENTIAL (PRIMARY) HYPERTENSION Status: Chronic Qualifiers: (8) ESRD (end stage renal disease) on dialysis Code(s): N18.6 - END STAGE RENAL DISEASE; Z99.2 - DEPENDENCE ON RENAL DIALYSIS Status: Chronic - Plan Plan: Continue Tamiflu. If no improvement, reassess for other source for infection. For now will hold further antibiotics. UA/UCx ordered. Guaifensin and Tessalon Consult Nephrology(Dr. Monk) GI Prophylaxis with Famotidine. Tylenol/Ice packs for temp control. Has received IVF, 1L in ED. Hold further fluids given hx of CHF. Monitor BP and blood glucose. Initiate ISS. Reconcile home meds once verified. CODE STATUS FULL Surrogate decision maker is her Morteza Saldivar.
[2019-10-13] MEDS ORDERED: Dextrose 5% in Water 1,000 ML IV PRN (22:42)
[2019-10-13] MEDS ORDERED: Dextrose 50% Abboject 50 ML SYRINGE SLOW IVP PRN (22:42)
[2019-10-13] MEDS ORDERED: HumaLOG 300 UNITS/3 ML VIAL SC PRN (22:42)
[2019-10-13 22:53] VITALS: BMI 34.8
[2019-10-13] MEDS: Acetaminophen 325 MG TAB PO PRN (23:50)
[2019-10-14 01:08] LABS: Bacteria/HPF 2+ HPF (None Seen); Bilirubin Negative (Negative); Blood, Urine 1+ (Negative); Clarity Turbid (Clear); Glucose, Urine (Dipstick) 500 mg/dL (Negative); Leukocyte Negative Leu/uL (Negative); Nitrite Negative (Negative); Protein, Urine (Dipstick) 600 mg/dL (Neg-Trace); Urobilinogen Normal mg/dL (Less than 2); WBC/HPF 0-3 HPF (0-3)
[2019-10-14 01:10] LABS: Urine Culture Reflex No No
[2019-10-14] MEDS ORDERED: Ketorolac Tromethamine 30 MG/ML VIAL IVP SCH (02:45)
[2019-10-14] MEDS: HumaLOG 300 UNITS/3 ML VIAL SC PRN (05:41)
[2019-10-14 07:06] LABS: #Lymphocytes 0.6 thou/uL (1.20-3.40); #Monocytes 0.5 thou/uL (0.11-0.59); #Neutrophils 6.4 thou/uL (1.40-6.50); %Basophils 0.1 % (0.0-1.0); %Eosinophils 0.5 % (0.0-10.0); %Lymphocytes 8.1 % (21.0-51.0); %Monocytes 6.6 % (0.0-10.0); %Neutrophils 84.6 % (42.0-75.0); Hemoglobin 10.5 g/dL (12.0-16.0); Mean Corpuscular HGB CONC 33.1 g/dL (32.0-36.0); Mean Corpuscular Hemoglobin 30.9 pg (27.0-31.0); Mean Corpuscular Volume 93.2 fL (78.0-98.0); Mean Platelet Volume 7.6 fL (7.4-10.4); Platelet Count 139 thou/uL (130-400); RBC Distribution Width 13.1 % (11.5-14.5); White Blood Cell (WBC) Count 7.6 thou/uL (4.8-10.8)
[2019-10-14 07:33] LABS: Anion Gap 15 mmol/L (10-20); BUN (Urea Nitrogen) 34 mg/dL (9.8-20.1); Calc. Creatinine Clearance 13 mL/min (70-130); Calcium 8.2 mg/dL (7.8-10.44); Carbon Dioxide 24 mmol/L (22-29); Chloride 104 mmol/L (98-107); Estimated GFR-MDRD 8; Glucose 143 mg/dL (70-105); Potassium 4.1 mmol/L (3.5-5.1); Sodium 139 mmol/L (136-145)
[2019-10-14] MEDS: Famotidine/PF 20 mg/2ml Vial SLOW IVP SCH (09:12)
[2019-10-14] MEDS: Acetaminophen 325 MG TAB PO PRN ×2 (09:25→21:58)
--- NOTE | 2019-10-14 10:15 | PRG ---
DATE OF SERVICE: 10/14/2019 SUBJECTIVE: Ms. Saldivar is a 58-year-old female with known history of ESRD and was admitted for dry cough associated with fever. She is being treated for influenza and currently receiving Tamiflu. We are being consulted for management of her ESRD. The patient did have dialysis yesterday. Still with a cough, but no chest pain or shortness of breath. OBJECTIVE: VITAL SIGNS: Blood pressure 153/65, heart rate 106, temperature 102.6, respiratory rate 20, and pulse ox 92%. GENERAL: The patient is awake, alert, comfortable, not in distress. SKIN: Adequate turgor. HEENT: Pinkish conjunctivae. Anicteric sclerae. NECK: No neck mass. No carotid bruits. No JVD. CHEST: No deformities. LUNGS: Clear breath sounds. No wheezing. No crackles. HEART: Normal sinus rhythm. No murmur. No gallops. No rubs. ABDOMEN: Globular, soft, nontender. No masses. EXTREMITIES: No edema. No deformities. MEDICATIONS: Of October 14, 2019, were reviewed. LABORATORY DATA: Laboratories of October 14, 2019: White count 7.6, hemoglobin 10.5. Sodium 139, potassium 4.1, chloride 104, carbon dioxide 24, BUN 34, creatinine 5.54, glucose 143, calcium 8.2. BNP 553.1. ASSESSMENT AND PLAN: 1. End-stage renal disease, stable. No indication for any emergent hemodialysis with this patient. Continue Wednesday, Wednesday, and Wednesday dialysis schedule. She did receive dialysis yesterday. 2. Influenza - currently on renally adjusted dose of Tamiflu. Continue supportive care. 3. Review of her last Kt/V suggests she is adequately dialyzed with the current dialysis regimen. Job ID: [id number]
[2019-10-14] MEDS ORDERED: Promethazine HCl 12.5 MG in Sodium Chloride 0.9% 50 ML IVPB PRN (17:52)
[2019-10-14] MEDS ORDERED: Promethazine 25 MG TAB PO PRN (17:52)
--- NOTE | 2019-10-14 17:55 | PDOC.HOSPP ---
- Subjective Encounter Date: 10/14/19 Encounter Time: 17:53 Subjective: Ms. Saldivar was seen today in follow-up of influenza A. She is nauseated, and notes left sided abdominal discomfort. She is coughing off and on. - Objective Vital Signs & Weight: Vital Signs (12 hours) Temp Pulse Resp BP Pulse Ox 10/14/19 17:40 99.2 F 99 16 135/62 99 10/14/19 12:27 99.0 F 100 15 128/58 L 95 10/14/19 09:19 102.6 F H 106 H 20 143/65 H 92 L Weight Weight 166 lb 12.8 oz Result Diagrams: 10/14/19 06:40 10/14/19 06:40 Additional Labs: Accuchecks 10/14/19 05:36 POC Glucose 178 H Hospitalist ROS - Medication Medications: Active Medications Generic Name Dose Route Start Last Admin Trade Name Freq PRN Reason Stop Dose Admin Acetaminophen 650 mg 10/13/19 22:10 10/14/19 09:25 Tylenol PO 650 mg Q4H PRN Administration Headache/Fever/Mild Pain (1-3) Famotidine 20 mg 10/14/19 09:00 10/14/19 09:12 Pepcid SLOW IVP 20 mg DAILY JONATHAN Administration Insulin Human Lispro 0 units 10/13/19 22:42 10/14/19 05:41 Humalog SC 2 unit .MILD SLIDING SCALE PRN Administration Mild Correctional Scale - Exam Eye: PERRL Neck: supple Heart: RRR, no murmur, no gallops, no rubs, normal peripheral pulses Respiratory: CTAB (with occasional wheeze), no rales, no ronchi Gastrointestinal: soft, non-tender, non-distended, normal bowel sounds, no palpable masses, no hepatomegaly Hosp A/P (1) Influenza A Code(s): J10.1 - FLU DUE TO OTH IDENT INFLUENZA VIRUS W OTH RESP MANIFEST Status: Acute (2) DM type 2 (diabetes mellitus, type 2) Status: Chronic Qualifiers: Diabetes mellitus complication status: with kidney complications Diabetes mellitus complication detail: with chronic kidney disease Chronic kidney disease stage: on chronic dialysis (3) Diastolic congestive heart failure Code(s): I50.30 - UNSPECIFIED DIASTOLIC (CONGESTIVE) HEART FAILURE Status: Chronic Qualifiers: (4) ESRD (end stage renal disease) on dialysis Code(s): N18.6 - END STAGE RENAL DISEASE; Z99.2 - DEPENDENCE ON RENAL DIALYSIS Status: Chronic (5) HTN (hypertension) Code(s): I10 - ESSENTIAL (PRIMARY) HYPERTENSION Status: Chronic Qualifiers: - Plan * Influenza A- continue Tamiflu, and support and symptom care- will add gentle IV fluids( due to continued fever) and phenergan for nausea * DM- Blood glucose is stable * ESRD- continue dialysis as per Nephrology * HTN- blood pressure is now stable- but will need to reconcile her home medications
[2019-10-14] MEDS: Sodium Chloride 0.9% 1,000 ML IV SCH (21:52)
[2019-10-14] MEDS ORDERED: Morphine 2 MG/ML SYRINGE SLOW IVP PRN (23:42)
[2019-10-15] MEDS: traMADol HCl 50 MG TAB PO PRN ×2 (05:35→13:24)
[2019-10-15 05:53] LABS: Anion Gap 18 mmol/L (10-20); BUN (Urea Nitrogen) 49 mg/dL (9.8-20.1); Calc. Creatinine Clearance 9 mL/min (70-130); Calcium 7.7 mg/dL (7.8-10.44); Carbon Dioxide 21 mmol/L (22-29); Chloride 101 mmol/L (98-107); Estimated GFR-MDRD 5; Glucose 108 mg/dL (70-105); Potassium 4.3 mmol/L (3.5-5.1); Sodium 136 mmol/L (136-145)
[2019-10-15 05:54] LABS: Band 36 % (5-11); Hemoglobin 9.8 g/dL (12.0-16.0); Lymphocytes 3 % (21-51); MDiff Complete? YES; Mean Corpuscular HGB CONC 33.1 g/dL (32.0-36.0); Mean Corpuscular Hemoglobin 30.9 pg (27.0-31.0); Mean Corpuscular Volume 93.3 fL (78.0-98.0); Mean Platelet Volume 8.1 fL (7.4-10.4); Monocytes 4 % (0-10); Neutrophil 57 % (42-75); Platelet Count 122 thou/uL (130-400); Platelet Morphology Comment Appears Decreased; RBC Distribution Width 13.1 % (11.5-14.5); RBC Morphology Normal; Red Blood Cell (RBC) Count 3.18 mill/uL (4.20-5.40); White Blood Cell (WBC) Count 10.6 thou/uL (4.8-10.8)
[2019-10-15] MEDS: Famotidine/PF 20 mg/2ml Vial SLOW IVP SCH (09:42)
[2019-10-15] MEDS: Acetaminophen 325 MG TAB PO PRN ×2 (09:42→21:28)
[2019-10-15] MEDS: HumaLOG 300 UNITS/3 ML VIAL SC PRN (13:24)
[2019-10-15] MEDS ORDERED: Ibuprofen 200 MG TAB PO PRN (14:02)
--- NOTE | 2019-10-15 14:55 | PDOC.HOSPP ---
- Subjective Encounter Date: 10/15/19 Encounter Time: 14:53 Subjective: Ms. Saldivar was seen today in follow-up of influenza A. She still looks uncomfortable. Her daughter is at the bedside, and tells me she just ate. No vomiting so far. - Objective Vital Signs & Weight: Vital Signs (12 hours) Temp Pulse Resp BP BP Pulse Ox 10/15/19 11:31 98.5 F 100 20 133/63 98 10/15/19 07:22 99.3 F 96 18 154/70 H 92 L 10/15/19 04:26 143/64 H 10/15/19 03:32 99.5 F 96 18 101/45 L 93 L Weight Weight 166 lb 12.8 oz I&O: 10/14/19 10/15/19 10/16/19 06:59 06:59 06:59 Intake Total 930 Balance 930 Result Diagrams: 10/15/19 05:12 10/15/19 05:12 Additional Labs: Accuchecks 10/15/19 10/15/19 10/14/19 11:34 05:48 22:10 POC Glucose 164 H 118 H 113 H 10/14/19 16:40 POC Glucose 125 H Hospitalist ROS - Medication Medications: Active Medications Generic Name Dose Route Start Last Admin Trade Name Freq PRN Reason Stop Dose Admin Acetaminophen 650 mg 10/13/19 22:10 10/15/19 09:42 Tylenol PO 650 mg Q4H PRN Administration Headache/Fever/Mild Pain (1-3) Famotidine 20 mg 10/14/19 09:00 10/15/19 09:42 Pepcid SLOW IVP 20 mg DAILY JONATHAN Administration Sodium Chloride 1,000 mls @ 50 mls/hr 10/14/19 18:00 10/14/19 21:52 Normal Saline 0.9% IV 1,000 mls .Q20H JONATHAN Administration Insulin Human Lispro 0 units 10/13/19 22:42 10/15/19 13:24 Humalog SC 2 unit .MILD SLIDING SCALE PRN Administration Mild Correctional Scale Morphine Sulfate 2 mg 10/14/19 23:42 10/15/19 00:01 Morphine SLOW IVP 2 mg Q4H PRN Administration Severe Pain (7-10) Tramadol HCl 50 mg 10/14/19 23:41 10/15/19 13:24 Ultram PO 50 mg Q6H PRN Administration Moderate Pain (4-6) - Exam Eye: PERRL Heart: RRR, no murmur, no gallops, no rubs, normal peripheral pulses Respiratory: wheezes (+ expiratory wheezing, and rhonchi, no rales) Gastrointestinal: soft (+ mildly distended,), normal bowel sounds, no palpable masses, no hepatomegaly Extremities: no cyanosis, no edema Hosp A/P (1) Influenza A Code(s): J10.1 - FLU DUE TO OTH IDENT INFLUENZA VIRUS W OTH RESP MANIFEST Status: Acute (2) DM type 2 (diabetes mellitus, type 2) Status: Chronic Qualifiers: Diabetes mellitus complication status: with kidney complications Diabetes mellitus complication detail: with chronic kidney disease Chronic kidney disease stage: on chronic dialysis (3) Diastolic congestive heart failure Code(s): I50.30 - UNSPECIFIED DIASTOLIC (CONGESTIVE) HEART FAILURE Status: Chronic Qualifiers: (4) ESRD (end stage renal disease) on dialysis Code(s): N18.6 - END STAGE RENAL DISEASE; Z99.2 - DEPENDENCE ON RENAL DIALYSIS Status: Chronic (5) HTN (hypertension) Code(s): I10 - ESSENTIAL (PRIMARY) HYPERTENSION Status: Chronic Qualifiers: - Plan * Influenza A- continue Tamiflu, and support and symptom care- will discontinue IV fluids, as her temperature is trending down, and want to avoid volume overload * Will add Duonebs as needed * DM- Blood glucose is stable * ESRD- continue dialysis as per Nephrology * HTN- blood pressure is now stable- but will need to reconcile her home medications
[2019-10-15] MEDS: Sodium Chloride 0.9% 1,000 ML IV SCH (15:21)
[2019-10-16] MEDS ORDERED: EPOETIN ALFA-EPBX (ESRD) 4,000 UNIT/ML VIAL SC SCH (09:00)
--- NOTE | 2019-10-16 09:05 | PRG ---
DATE OF SERVICE: 10/16/2019 SUBJECTIVE: Ms. Saldivar is a 58-year-old female with ESRD - on maintenance hemodialysis and admitted for fever. She was found to have flu. She has been having nausea and vomiting. For this reason, she was admitted. Still with productive cough. No complaints of chest pain or shortness of breath per se. OBJECTIVE: VITAL SIGNS: Blood pressure is noted at 127/60, heart rate 87, temperature 98.3, respiratory rate 18, and O2 saturations 100% on 2 L. GENERAL: Awake, alert, comfortable, not in distress. SKIN: Adequate turgor. HEENT: She has pinkish conjunctivae. Anicteric sclerae. NECK: No neck mass. No carotid bruits. No JVD. LUNGS: Harsh breath sounds. HEART: Normal sinus rhythm. No murmur. No gallops. No rubs. ABDOMEN: Globular, soft, nontender. EXTREMITIES: No edema. Status post right BKA. MEDICATIONS: Medications of October 16, 2019, were reviewed. LABORATORY DATA: Laboratories of October 15, 2019; white count 10.6, hemoglobin 9.8. Sodium 136, potassium 4.3, chloride 101, carbon dioxide 21, BUN 49, creatinine 7.59, glucose 108, calcium 7.7. ASSESSMENT AND PLAN: 1. End-stage renal disease - the patient is scheduled for hemodialysis today. We will do it for 3.5 hours. Fluid removal only as tolerated. Review of the last Kt/V suggests she is adequately dialyzed with the current dialysis regimen. No changes to be made with her dialysis regimen. 2. Flu/cough - currently on an antiviral medication, stable. Continue supportive care. 3. Anemia. Restart Epogen at 7500 units subcu every week. Job ID: [id number]
[2019-10-16] MEDS: Famotidine/PF 20 mg/2ml Vial SLOW IVP SCH (14:13)
[2019-10-16] MEDS: Oseltamivir 6 MG/ML ORAL SUSP PO SCH (14:55)
--- NOTE | 2019-10-16 16:57 | PDOC.HOSPP ---
- Subjective Encounter Date: 10/16/19 Encounter Time: 16:55 Subjective: Ms. Saldivar was seen today in follow-up of influenza A. She still appears very ill. Sh does not talk much. She notes some continues nausea. - Objective Vital Signs & Weight: Vital Signs (12 hours) Temp Pulse Resp BP Pulse Ox 10/16/19 14:52 100.8 F H 90 18 149/69 H 95 10/16/19 14:50 100.6 F H 97 16 140/63 94 L 10/16/19 08:10 100 10/16/19 07:22 98.3 F 87 18 127/60 100 Weight Weight 166 lb 12.8 oz I&O: 10/15/19 10/16/19 10/17/19 06:59 06:59 06:59 Intake Total 930 1000 410 Output Total 0 Balance 930 1000 410 Result Diagrams: 10/15/19 05:12 10/15/19 05:12 Additional Labs: Accuchecks 10/16/19 10/16/19 10/15/19 14:28 05:41 21:10 POC Glucose 131 H 154 H 115 H 10/15/19 16:48 POC Glucose 126 H Hospitalist ROS - Medication Medications: Active Medications Generic Name Dose Route Start Last Admin Trade Name Freq PRN Reason Stop Dose Admin Acetaminophen 650 mg 10/13/19 22:10 10/15/19 21:28 Tylenol PO 650 mg Q4H PRN Administration Headache/Fever/Mild Pain (1-3) Albuterol/Ipratropium 3 ml 10/15/19 14:52 10/15/19 22:29 Duoneb NEB 3 ml Q4H PRN Administration SOB &/or Wheezing Famotidine 20 mg 10/14/19 09:00 10/16/19 14:13 Pepcid SLOW IVP Not Given DAILY JONATHAN Ibuprofen 200 mg 10/15/19 14:02 10/15/19 15:12 Motrin PO 200 mg Q4H PRN Administration Fever/Mild Pain Insulin Human Lispro 0 units 10/13/19 22:42 10/15/19 13:24 Humalog SC 2 unit .MILD SLIDING SCALE PRN Administration Mild Correctional Scale Morphine Sulfate 2 mg 10/14/19 23:42 10/15/19 00:01 Morphine SLOW IVP 2 mg Q4H PRN Administration Severe Pain (7-10) Oseltamivir Phosphate 30 mg 10/16/19 09:00 10/16/19 14:55 Tamiflu PO 10/18/19 21:00 30 mg MWF JONATHAN Administration Tramadol HCl 50 mg 10/14/19 23:41 10/15/19 13:24 Ultram PO 50 mg Q6H PRN Administration Moderate Pain (4-6) - Exam Eye: PERRL Neck: supple Heart: RRR, no murmur, no gallops, no rubs, normal peripheral pulses Respiratory: CTAB (with occasional wheeze) Gastrointestinal: soft (mildly distended,), normal bowel sounds, no guarding Extremities: no cyanosis, 1+ LE edema Hosp A/P (1) Influenza A Code(s): J10.1 - FLU DUE TO OTH IDENT INFLUENZA VIRUS W OTH RESP MANIFEST Status: Acute (2) DM type 2 (diabetes mellitus, type 2) Status: Chronic Qualifiers: Diabetes mellitus complication status: with kidney complications Diabetes mellitus complication detail: with chronic kidney disease Chronic kidney disease stage: on chronic dialysis (3) Diastolic congestive heart failure Code(s): I50.30 - UNSPECIFIED DIASTOLIC (CONGESTIVE) HEART FAILURE Status: Chronic Qualifiers: (4) ESRD (end stage renal disease) on dialysis Code(s): N18.6 - END STAGE RENAL DISEASE; Z99.2 - DEPENDENCE ON RENAL DIALYSIS Status: Chronic (5) HTN (hypertension) Code(s): I10 - ESSENTIAL (PRIMARY) HYPERTENSION Status: Chronic Qualifiers: - Plan * Influenza A- continue Tamiflu, and support and symptom care- she continues to appear weak and poor oral intake- her vital signs are ok, * Continue Duonebs as needed * DM- Blood glucose is stable * ESRD- continue dialysis as per Nephrology * HTN- blood pressure is now stable- but will need to reconcile her home medications * Due to her multiple co-morbid conditions her recovery from the influenza is prolonged- will change her status to inpatient * Continue supportive management
[2019-10-17] MEDS: Acetaminophen 325 MG TAB PO PRN (01:11)
[2019-10-17 05:38] LABS: #Lymphocytes 0.9 thou/uL (1.20-3.40); #Monocytes 0.5 thou/uL (0.11-0.59); #Neutrophils 3.2 thou/uL (1.40-6.50); %Basophils 0.3 % (0.0-1.0); %Eosinophils 0.9 % (0.0-10.0); %Monocytes 11.2 % (0.0-10.0); %Neutrophils 68.6 % (42.0-75.0); Hemoglobin 9.8 g/dL (12.0-16.0); Mean Corpuscular HGB CONC 30.9 g/dL (32.0-36.0); Mean Corpuscular Hemoglobin 29.5 pg (27.0-31.0); Mean Corpuscular Volume 95.3 fL (78.0-98.0); Mean Platelet Volume 8.5 fL (7.4-10.4); Platelet Count 143 thou/uL (130-400); RBC Distribution Width 13.4 % (11.5-14.5); Red Blood Cell (RBC) Count 3.33 mill/uL (4.20-5.40); White Blood Cell (WBC) Count 4.7 thou/uL (4.8-10.8)
[2019-10-17 05:45] LABS: Anion Gap 17 mmol/L (10-20); BUN (Urea Nitrogen) 29 mg/dL (9.8-20.1); Calc. Creatinine Clearance 11 mL/min (70-130); Carbon Dioxide 28 mmol/L (22-29); Chloride 98 mmol/L (98-107); Estimated GFR-MDRD 7; Glucose 141 mg/dL (70-105); Potassium 3.7 mmol/L (3.5-5.1); Sodium 139 mmol/L (136-145)
[2019-10-17] MEDS: Famotidine/PF 20 mg/2ml Vial SLOW IVP SCH (08:42)
--- NOTE | 2019-10-17 16:16 | PDOC.HOSPP ---
- Subjective Encounter Date: 10/17/19 Encounter Time: 16:14 Subjective: Ms. Saldivar was seen today in follow-up of influenza. She continues to have nausea and vomiting.She otherwise actually looks better, and voice is stronger. - Objective Vital Signs & Weight: Vital Signs (12 hours) Temp Pulse Resp BP BP Pulse Ox 10/17/19 11:13 98.6 F 73 18 146/67 H 100 10/17/19 08:30 98.3 F 73 18 137/63 100 10/17/19 07:34 98 10/17/19 06:25 97.8 F 74 18 148/68 H 98 Weight Weight 166 lb 12.8 oz I&O: 10/16/19 10/17/19 10/18/19 06:59 06:59 06:59 Intake Total 1000 890 Output Total 0 Balance 1000 890 Result Diagrams: 10/17/19 05:03 10/17/19 05:03 Additional Labs: Accuchecks 10/17/19 10/17/19 10/16/19 11:46 06:18 19:53 POC Glucose 138 H 142 H 162 H 10/14/19 12:38 POC Glucose 130 H Hospitalist ROS - Medication Medications: Active Medications Generic Name Dose Route Start Last Admin Trade Name Freq PRN Reason Stop Dose Admin Acetaminophen 650 mg 10/13/19 22:10 10/17/19 01:11 Tylenol PO 650 mg Q4H PRN Administration Headache/Fever/Mild Pain (1-3) Albuterol/Ipratropium 3 ml 10/15/19 14:52 10/15/19 22:29 Duoneb NEB 3 ml Q4H PRN Administration SOB &/or Wheezing Epoetin Marcelo-epbx 7,500 unit 10/16/19 09:00 10/16/19 17:32 Retacrit SC 7,500 unit Q7D JONATHAN Administration Famotidine 20 mg 10/14/19 09:00 10/17/19 08:42 Pepcid SLOW IVP 20 mg DAILY JONATHAN Administration Ibuprofen 200 mg 10/15/19 14:02 10/15/19 15:12 Motrin PO 200 mg Q4H PRN Administration Fever/Mild Pain Insulin Human Lispro 0 units 10/13/19 22:42 10/15/19 13:24 Humalog SC 2 unit .MILD SLIDING SCALE PRN Administration Mild Correctional Scale Morphine Sulfate 2 mg 10/14/19 23:42 10/15/19 00:01 Morphine SLOW IVP 2 mg Q4H PRN Administration Severe Pain (7-10) Oseltamivir Phosphate 30 mg 10/16/19 09:00 10/16/19 14:55 Tamiflu PO 10/18/19 21:00 30 mg MWF JONATHAN Administration Tramadol HCl 50 mg 10/14/19 23:41 10/15/19 13:24 Ultram PO 50 mg Q6H PRN Administration Moderate Pain (4-6) - Exam Eye: PERRL Heart: RRR, no murmur, no gallops, no rubs, normal peripheral pulses Respiratory: CTAB, no wheezes, no rales, no ronchi, normal chest expansion, no tachypnea, normal percussion Gastrointestinal: soft, normal bowel sounds, tender to palpation, distended Extremities: 1+ LE edema Hosp A/P (1) Influenza A Code(s): J10.1 - FLU DUE TO OTH IDENT INFLUENZA VIRUS W OTH RESP MANIFEST Status: Acute (2) DM type 2 (diabetes mellitus, type 2) Status: Chronic Qualifiers: Diabetes mellitus complication status: with kidney complications Diabetes mellitus complication detail: with chronic kidney disease Chronic kidney disease stage: on chronic dialysis (3) Diastolic congestive heart failure Code(s): I50.30 - UNSPECIFIED DIASTOLIC (CONGESTIVE) HEART FAILURE Status: Chronic Qualifiers: (4) ESRD (end stage renal disease) on dialysis Code(s): N18.6 - END STAGE RENAL DISEASE; Z99.2 - DEPENDENCE ON RENAL DIALYSIS Status: Chronic (5) HTN (hypertension) Code(s): I10 - ESSENTIAL (PRIMARY) HYPERTENSION Status: Chronic Qualifiers: - Plan * Abdominal Pain and nausea and vomiting- will check an X-ray of the abdomen- 2 views to rule out obstruction * She could have some gastroparesis * Influenza A- continue Tamiflu * DM- Blood glucose is stable * ESRD- continue dialysis as per Nephrology * HTN- is beginning to trend up- will re-start Metoprolol
--- NOTE | 2019-10-17 16:35 | RAD ---
EXAM: 2 views of the abdomen HISTORY: Abdominal pain COMPARISON: None FINDINGS: 2 views of the abdomen shows a nonspecific, nonobstructive bowel gas pattern. No free air o r air-fluid levels are seen on upright examination. No suspicious calcifications are seen. The bones are unremarkable. IMPRESSION: No evidence of bowel obstruction.
[2019-10-17] MEDS: Sevelamer Carbonate 800 MG TAB PO SCH (18:19)
[2019-10-17] MEDS: Metoclopramide HCl 10 MG/2 ML VIAL IVP SCH (21:51)
[2019-10-17] MEDS: Metoprolol Tartrate 25 MG TAB PO SCH (21:51)
[2019-10-17] MEDS: hydrALAZINE 25 MG TAB PO SCH (21:52)
[2019-10-17] MEDS: traMADol HCl 50 MG TAB PO PRN (21:55)
[2019-10-18] MEDS: Metoclopramide HCl 10 MG/2 ML VIAL IVP SCH ×3 (06:23→21:10)
[2019-10-18] MEDS: Oseltamivir 6 MG/ML ORAL SUSP PO SCH (09:05)
[2019-10-18] MEDS: Metoprolol Tartrate 25 MG TAB PO SCH ×2 (09:06→20:11)
[2019-10-18] MEDS: Sevelamer Carbonate 800 MG TAB PO SCH ×3 (09:06→17:37)
[2019-10-18] MEDS: hydrALAZINE 25 MG TAB PO SCH ×3 (09:06→20:10)
[2019-10-18] MEDS: Isosorbide Mononitrate (ER) 30 MG TAB PO SCH (09:07)
[2019-10-18] MEDS: Famotidine/PF 20 mg/2ml Vial SLOW IVP SCH (09:08)
--- NOTE | 2019-10-18 10:42 | PRG ---
DATE OF SERVICE: 10/18/2019 SUBJECTIVE: Ms. Saldivar is a 58-year-old female with ESRD, on maintenance hemodialysis. I have scheduled her for a regular dialysis this afternoon. Her coughing was much improved. She denies any chest pain or shortness of breath. OBJECTIVE: VITAL SIGNS: Blood pressure is 130/81, heart rate 68, respiratory rate 17, temperature 98.2, and pulse ox 95% on room air, GENERAL: Awake, alert, comfortable, not in distress. SKIN: Adequate turgor. HEENT: She has slightly pale conjunctivae. Anicteric sclerae. NECK: No neck mass. No carotid bruits. No JVD. CHEST: No deformities. LUNGS: Harsh breath sounds. HEART: Normal sinus rhythm. No murmur. No gallops. No rubs. ABDOMEN: Globular, soft, nontender. EXTREMITIES: No edema. MEDICATIONS: Medications of October 18, 2019, were reviewed. LABORATORY DATA: Laboratories of October 17, 2019; white count 4.7, hemoglobin 9.8. Sodium 139, potassium 3.7, chloride 98, carbon dioxide 28, BUN 29, creatinine 6.23, glucose 141, and calcium 8.0. ASSESSMENT AND PLAN: 1. Cough/fever - clinically much improved. The patient has underlying influenza infection. Currently, on Tamiflu. 2. End-stage renal disease, stable. We will continue current Wednesday, Wednesday, and Wednesday hemodialysis. Fluid removal only as tolerated of patient. 3. Anemia. Continue weekly Epogen. 4. Agree with current management. Job ID: [id number]
--- NOTE | 2019-10-18 16:52 | PDOC.HOSPP ---
- Subjective Encounter Date: 10/18/19 Encounter Time: 16:51 Subjective: Ms. Saldivar was seen today in follow-up of influenza A. She says she has less abdominal pain today. No nausea or vomiting. She told me she was able to eat some. - Objective Vital Signs & Weight: Vital Signs (12 hours) Temp Pulse Resp BP BP Pulse Ox 10/18/19 15:04 82 10/18/19 14:00 98.2 F 82 16 152/65 H 152/65 H 98 10/18/19 10:00 97.7 F 77 16 153/69 H 153/69 H 95 10/18/19 09:06 68 10/18/19 08:00 98 Weight Weight 166 lb 12.8 oz I&O: 10/17/19 10/18/19 10/19/19 06:59 06:59 06:59 Intake Total 890 200 Output Total 0 Balance 890 200 Result Diagrams: 10/17/19 05:03 10/17/19 05:03 Additional Labs: Accuchecks 10/18/19 10/18/19 10/17/19 11:22 06:28 22:05 POC Glucose 133 H 92 123 H Hospitalist ROS - Medication Medications: Active Medications Generic Name Dose Route Start Last Admin Trade Name Freq PRN Reason Stop Dose Admin Acetaminophen 650 mg 10/13/19 22:10 10/17/19 01:11 Tylenol PO 650 mg Q4H PRN Administration Headache/Fever/Mild Pain (1-3) Albuterol/Ipratropium 3 ml 10/15/19 14:52 10/17/19 18:28 Duoneb NEB 3 ml Q4H PRN Administration SOB &/or Wheezing Epoetin Marcelo-epbx 7,500 unit 10/16/19 09:00 10/16/19 17:32 Retacrit SC 7,500 unit Q7D JONATHAN Administration Famotidine 20 mg 10/14/19 09:00 10/18/19 09:08 Pepcid SLOW IVP 20 mg DAILY JONATHAN Administration Hydralazine HCl 50 mg 10/17/19 21:00 10/18/19 15:04 Apresoline PO Not Given TID JONATHAN Ibuprofen 200 mg 10/15/19 14:02 10/15/19 15:12 Motrin PO 200 mg Q4H PRN Administration Fever/Mild Pain Insulin Human Lispro 0 units 10/13/19 22:42 10/15/19 13:24 Humalog SC 2 unit .MILD SLIDING SCALE PRN Administration Mild Correctional Scale Isosorbide Mononitrate 15 mg 10/18/19 09:00 10/18/19 09:07 Imdur Er PO 15 mg DAILY JONATHAN Administration Metoclopramide HCl 5 mg 10/17/19 22:00 10/18/19 15:04 Reglan IVP 10/18/19 22:01 Not Given Q8HR [facility] Metoprolol Tartrate 25 mg 10/17/19 21:00 10/18/19 09:06 Lopressor PO 25 mg BID JONATHAN Administration Morphine Sulfate 2 mg 10/14/19 23:42 10/15/19 00:01 Morphine SLOW IVP 2 mg Q4H PRN Administration Severe Pain (7-10) Oseltamivir Phosphate 30 mg 10/16/19 09:00 10/18/19 09:05 Tamiflu PO 10/18/19 21:00 30 mg MWF JONATHAN Administration Promethazine HCl 12.5 mg 10/14/19 17:52 10/17/19 18:51 Phenergan PO 12.5 mg Q6H PRN Administration Nausea/Vomiting Sevelamer Carbonate 2,400 mg 10/17/19 17:00 10/18/19 12:46 Renvela PO 2,400 mg TID-WM JONATHAN Administration Tramadol HCl 50 mg 10/14/19 23:41 10/17/19 21:55 Ultram PO 50 mg Q6H PRN Administration Moderate Pain (4-6) - Exam Eye: PERRL Heart: RRR, no murmur, no gallops, no rubs, normal peripheral pulses Respiratory: CTAB, no wheezes, no rales, no ronchi, normal chest expansion, no tachypnea, normal percussion Gastrointestinal: soft, non-tender, normal bowel sounds, distended (+ mildly distended) Extremities: 1+ LE edema Hosp A/P (1) Influenza A Code(s): J10.1 - FLU DUE TO OTH IDENT INFLUENZA VIRUS W OTH RESP MANIFEST Status: Acute (2) DM type 2 (diabetes mellitus, type 2) Status: Chronic Qualifiers: Diabetes mellitus complication status: with kidney complications Diabetes mellitus complication detail: with chronic kidney disease Chronic kidney disease stage: on chronic dialysis (3) Diastolic congestive heart failure Code(s): I50.30 - UNSPECIFIED DIASTOLIC (CONGESTIVE) HEART FAILURE Status: Chronic Qualifiers: (4) ESRD (end stage renal disease) on dialysis Code(s): N18.6 - END STAGE RENAL DISEASE; Z99.2 - DEPENDENCE ON RENAL DIALYSIS Status: Chronic (5) HTN (hypertension) Code(s): I10 - ESSENTIAL (PRIMARY) HYPERTENSION Status: Chronic Qualifiers: - Plan * Abdominal Pain and nausea and vomiting- X-rays were negative for obstruction, and recent CT scan of the abdomen was negative for any significant pathology. She seems to have responded well to a trial of Reglan- will change to p.o., and keep her on a short course * Influenza- symptoms are improving * DM- Blood glucose is stable * ESRD- continue dialysis as per Nephrology * HTN-continue home medications * Hopefully home tomorrow
[2019-10-19] MEDS ORDERED: Metoclopramide 10 MG/10 ML UDCUP PO SCH ×2 (07:45→11:30)
[2019-10-19] MEDS: Isosorbide Mononitrate (ER) 30 MG TAB PO SCH (09:19)
[2019-10-19] MEDS: Sevelamer Carbonate 800 MG TAB PO SCH ×2 (09:20→11:45)
[2019-10-19] MEDS: Famotidine/PF 20 mg/2ml Vial SLOW IVP SCH (09:20)
[2019-10-19] MEDS: hydrALAZINE 25 MG TAB PO SCH ×2 (09:20→15:41)
[2019-10-19] MEDS: Metoprolol Tartrate 25 MG TAB PO SCH (09:21)
--- NOTE | 2019-10-19 10:51 | PDOC.HOSPP ---
- Subjective Encounter Date: 10/19/19 Encounter Time: 10:49 Subjective: Ms. Saldivar was seen today in follow-up of influenza. She is feeling a bit better. She has been able to keep food down. - Objective Vital Signs & Weight: Vital Signs (12 hours) Temp Pulse Resp BP Pulse Ox 10/19/19 09:20 65 10/19/19 07:30 97.6 F 65 16 128/72 95 10/19/19 04:49 98 F 62 16 131/72 94 L 10/19/19 00:16 98.5 F 65 16 119/67 95 Weight Weight 166 lb 12.8 oz I&O: 10/18/19 10/19/19 10/20/19 06:59 06:59 06:59 Intake Total 510 Balance 510 Result Diagrams: 10/17/19 05:03 10/17/19 05:03 Additional Labs: Accuchecks 10/19/19 10/18/19 10/18/19 05:42 20:13 11:22 POC Glucose 137 H 131 H 133 H Hospitalist ROS - Medication Medications: Active Medications Generic Name Dose Route Start Last Admin Trade Name Freq PRN Reason Stop Dose Admin Acetaminophen 650 mg 10/13/19 22:10 10/17/19 01:11 Tylenol PO 650 mg Q4H PRN Administration Headache/Fever/Mild Pain (1-3) Albuterol/Ipratropium 3 ml 10/15/19 14:52 10/17/19 18:28 Duoneb NEB 3 ml Q4H PRN Administration SOB &/or Wheezing Epoetin Marcelo-epbx 7,500 unit 10/16/19 09:00 10/16/19 17:32 Retacrit SC 7,500 unit Q7D JONATHAN Administration Famotidine 20 mg 10/14/19 09:00 10/19/19 09:20 Pepcid SLOW IVP 20 mg DAILY JONATHAN Administration Hydralazine HCl 50 mg 10/17/19 21:00 10/19/19 09:20 Apresoline PO 50 mg TID JONATHAN Administration Ibuprofen 200 mg 10/15/19 14:02 10/15/19 15:12 Motrin PO 200 mg Q4H PRN Administration Fever/Mild Pain Insulin Human Lispro 0 units 10/13/19 22:42 10/15/19 13:24 Humalog SC 2 unit .MILD SLIDING SCALE PRN Administration Mild Correctional Scale Isosorbide Mononitrate 15 mg 10/18/19 09:00 10/19/19 09:19 Imdur Er PO 15 mg DAILY JONATHAN Administration Metoprolol Tartrate 25 mg 10/17/19 21:00 10/19/19 09:21 Lopressor PO 25 mg BID JONATHAN Administration Morphine Sulfate 2 mg 10/14/19 23:42 10/15/19 00:01 Morphine SLOW IVP 2 mg Q4H PRN Administration Severe Pain (7-10) Promethazine HCl 12.5 mg 10/14/19 17:52 10/17/19 18:51 Phenergan PO 12.5 mg Q6H PRN Administration Nausea/Vomiting Sevelamer Carbonate 2,400 mg 10/17/19 17:00 10/19/19 09:20 Renvela PO 2,400 mg TID-WM JONATHAN Administration Tramadol HCl 50 mg 10/14/19 23:41 10/17/19 21:55 Ultram PO 50 mg Q6H PRN Administration Moderate Pain (4-6) - Exam Eye: PERRL Heart: RRR, no murmur, no gallops, no rubs, normal peripheral pulses Respiratory: CTAB, no wheezes, no rales, no ronchi, normal chest expansion, no tachypnea, normal percussion Gastrointestinal: soft, non-tender, non-distended, normal bowel sounds, no palpable masses, no hepatomegaly Extremities: no cyanosis Hosp A/P (1) Influenza A Code(s): J10.1 - FLU DUE TO OTH IDENT INFLUENZA VIRUS W OTH RESP MANIFEST Status: Acute (2) DM type 2 (diabetes mellitus, type 2) Status: Chronic Qualifiers: Diabetes mellitus complication status: with kidney complications Diabetes mellitus complication detail: with chronic kidney disease Chronic kidney disease stage: on chronic dialysis (3) Diastolic congestive heart failure Code(s): I50.30 - UNSPECIFIED DIASTOLIC (CONGESTIVE) HEART FAILURE Status: Chronic Qualifiers: (4) ESRD (end stage renal disease) on dialysis Code(s): N18.6 - END STAGE RENAL DISEASE; Z99.2 - DEPENDENCE ON RENAL DIALYSIS Status: Chronic (5) HTN (hypertension) Code(s): I10 - ESSENTIAL (PRIMARY) HYPERTENSION Status: Chronic Qualifiers: - Plan * Influenza- resolving * DM- Blood glucose is stable * ESRD- continue dialysis as per Nephrology * HTN-continue home medications * Home today
[2019-10-19 11:42] VITALS: BP 114/69; TEMP 98.6
--- NOTE | 2019-10-19 11:59 | DIS ---
DATE OF ADMISSION: 10/16/2019 DATE OF DISCHARGE: 10/19/2019 PRIMARY CARE PHYSICIAN: Sagar De Leon MD DISCHARGE DISPOSITION: Home. DISCHARGE DIAGNOSES: 1. Influenza A. 2. End-stage renal disease, on hemodialysis. 3. Hypertension. 4. Diabetes mellitus, type 2. 5. Severe vision impairment. DISCHARGE MEDICATIONS: Include: 1. Reglan 5 mg p.o. t.i.d. as needed for nausea and vomiting. 2. Tessalon Perles 100 mg p.o. t.i.d. 3. Renvela 800 mg three tablets t.i.d. 4. Zofran 4 mg q.6 as needed. 5. Lopressor 25 mg twice daily. 6. Lisinopril 10 mg daily. 7. Isosorbide mononitrate 15 mg daily. 8. Hydralazine 50 mg p.o. t.i.d. 9. Iron sulfate 325 mg t.i.d. 10. Aspirin 81 mg a day. CODE STATUS: Full code. ALLERGIES: NO KNOWN DRUG ALLERGIES. HOSPITAL COURSE: Ms. Saldivar is a pleasant 58-year-old female who was admitted to the hospital with high fever, generalized weakness, cough, congestion, nausea, and vomiting. Influenza screen demonstrated positive influenza A antigen. The patient was placed on Tamiflu, and she slowly improved over the course of the next several days. By the time of her discharge, she had actually completed a full dose of Tamiflu. She had some residual nausea and vomiting, which actually improved with Reglan. She had a CT scan of her abdomen done a few days prior to admission, which was negative. Abdominal x-rays during her hospital stay were negative for obstruction, and I suspect that she may have some underlying diabetic gastroparesis as this problem appears to be relatively chronic. She has been instructed to follow up with her primary care physician, Dr. De Leon early next week and also with Dr. Monk as instructed. Job ID: [id number]
--- NOTE | 2019-10-20 06:46 | PQF ---
Veronica Saldivar SUNIL [id number] CLINICAL DOCUMENTATION CLARIFICATION FORM: POST DISCHARGE Addendum to original discharge summary date: ____ Late entry note date: __ DATE: 10/20/2018 ATTN: NOAH DUMONT Please exercise your independent, professional judgment in responding to the clarification form. Clinical indicators are provided on the bottom of this form for your review Please check appropriate box(es): [ X ] Sepsis due to: (Pna, UTI, gangrenous gall bladder, etc.) influenza Due to: [ ] Device (please specify) [ ] Implant [ ] Graft [ ] Infusion [ ] SIRS due to non-infectious process (please specify etiology) [ ] with organ dysfunction [ ] without organ dysfunction [ ] Severe sepsis with acute organ dysfunction of: (Examples: respiratory failure, encephalopathy, acute kidney failure, other) [ ] Septic Shock [ ] Localized infection without sepsis [ ] Other diagnosis [ ] Unable to determine In addition, please specify: Present on Admission (POA): [ X ] Yes [ ] No [ ] Unable to determine For continuity of documentation, please document condition throughout progress notes and discharge summary. Thank You. CLINICAL INDICATORS - SIGNS / SYMPTOMS / LABS - Doubt sepsis- ED record,10/16, Martin Vázquez MD - Tachycardia noted, ED record,10/16, Martin Vázquez MD - Temp: 101.7, Rr:15, Pulse: 106- ED record,10/16, Martin Vázquez MD - Fever, Influenza- H&P, 10/13, Suzanna Michaels - WBC: 4.7L on 10/17- Laboratory RISK FACTORS - Influenza A-DS, 10/19, Severiano Bowen MD - ESRD on hemodialysis- DS, 10/19, Severiano Bowen MD TREATMENTS: -Cefepime.IV- DEC, 10/13 - Tamiflu.PO -DEC, 10/14 (This form is maintained as a part of the permanent medical record) 2014 [employer]. All Rights Reserved Raya Cabrera [not provided] [not provided] MTDD
== END 2019-10-19 17:53 | disposition home or self-care (01) | DRG 871 ==
LOC: ERS 18:33 → SJJU 22:29 → OBSVTOIN 10-16 16:55
PROVIDERS: ADMIT Internal Medicine; ATTEND Internal Medicine
DX: A41.9 Sepsis, unspecified organism (principal); N18.6 End stage renal disease; I13.0 Hypertensive heart and chronic kidney disease with heart failure and stage 1 through stage 4 chronic kidney disease, or unspecified chronic kidney disease; I50.32 Chronic diastolic (congestive) heart failure; J10.1 Influenza due to other identified influenza virus with other respiratory manifestations; E11.43 Type 2 diabetes mellitus with diabetic autonomic (poly)neuropathy; K31.84 Gastroparesis; H54.7 Unspecified visual loss; E78.5 Hyperlipidemia, unspecified; D63.1 Anemia in chronic kidney disease; E11.22 Type 2 diabetes mellitus with diabetic chronic kidney disease; E78.00 Pure hypercholesterolemia, unspecified; Z99.2 Dependence on renal dialysis; Z79.4 Long term (current) use of insulin; Z90.710 Acquired absence of both cervix and uterus
CPT/HCPCS: 36415; 36416; 71045; 74019; 80048; 80053; 81001; 83605; 83880; 85025; 87040; 87086; 87804; 90471; 90732; 90935; 93005; 94640; 94760; 96365; 96367; G0009; G0257; J0692; J1885; J2270; J2550; J2765; J3370; J7620; Q0169; Q5105; S0028

== ENCOUNTER 2020-04-13 17:20 | Emergency (ER) | payer MEDICARE, MEDICAID ==
--- NOTE | 2020-04-13 18:20 | RAD ---
XR Ankle Lt 3 View STANDARD INDICATION: Left foot and ankle swelling COMPARISON: None. FINDINGS: Bones: There is diffuse osteopenia. No acute fracture or subluxation demonstrated. There is a moderat e-sized enthesophyte off the plantar and posterior calcaneus. Ankle mortise: There is a moderate osteoarthrosis of the left ankle joint. Talar Dome: There is subchondral cystlike abnormalities involving the medial aspect of the talar dome . Subtalar joint: There is mild degenerative change of the posterior subtalar joint. Visualized hindfoot: There are scattered Monckeberg calcifications within the soft tissues. Periarticular soft tissues: There is diffuse soft tissue swelling of the left foreleg, ankle and foot . IMPRESSION: 1. No acute fracture or subluxation demonstrated. 2. Diffuse soft tissue swelling of the left foreleg, ankle and foot. 3. Moderate left ankle osteoarthrosis. Mild posterior subtalar osteoarthrosis.
[2020-04-13 18:22] LABS: #Eosinphils 0.1 thou/uL (0.0-0.7); #Lymphocytes 1.3 thou/uL (1.20-3.40); #Monocytes 0.6 thou/uL (0.11-0.59); #Neutrophils 5.1 thou/uL (1.40-6.50); %Basophils 0.2 % (0.0-1.0); %Eosinophils 0.8 % (0.0-10.0); %Lymphocytes 18.5 % (21.0-51.0); %Monocytes 8.6 % (0.0-10.0); Hemoglobin 10.3 g/dL (12.0-16.0); Mean Corpuscular HGB CONC 34.3 g/dL (32.0-36.0); Mean Corpuscular Hemoglobin 32.6 pg (27.0-31.0); Mean Corpuscular Volume 95.1 fL (78.0-98.0); Platelet Count 185 thou/uL (130-400); RBC Distribution Width 13.5 % (11.5-14.5); Red Blood Cell (RBC) Count 3.16 mill/uL (4.20-5.40); White Blood Cell (WBC) Count 7.1 thou/uL (4.8-10.8)
[2020-04-13 18:31] LABS: PTT 28.9 sec (22.9-36.1); Prothrombin Time 13.2 sec (12.0-14.7)
--- NOTE | 2020-04-13 18:39 | RAD ---
LEFT FOOT: 04/13/20 Three views. HISTORY: Foot swelling. Comparison film of 07/06/09. Enthesophyte from the plantar calcaneus noted previously apparently has been resected. There are prominent degenerative changes at the tibiotalar joint which have progressed significantly since 2008. There is flattening of the dome of the talus with hypertrophic spurring at the tibiotalar joint. Mild degenerative changes at the talonavicular. Metatarsals and phalanges appear intact. The MTP joints are unremarkable. Arterial calcifications are noted. IMPRESSION: Prominent degenerative changes at the tibiotalar joint and at the talonavicular. POS: AGW
--- NOTE | 2020-04-13 18:41 | ULT ---
LEFT LOWER EXTREMITY DOPPLER VENOUS ULTRASOUND PROVIDED CLINICAL HISTORY: Left lower extremity pain, edema and redness for one week TECHNIQUE: Grayscale and color Doppler sonography with spectral analysis was performed of the left common femora l, femoral, popliteal, posterior tibial, greater saphenous and profunda femoral veins. FINDINGS: There is normal compression, flow and augmentation seen within the deep venous structures o f the left lower extremity. IMPRESSION: No sonographic evidence for left lower extremity deep venous thrombosis.
[2020-04-13 18:45] LABS: ALT (SGPT) 15 U/L (8-55); AST (SGOT) 20 U/L (5-34); Albumin 3.8 g/dL (3.4-4.8); Alkaline Phosphatase 142 U/L (40-110); Anion Gap 18 mmol/L (10-20); BUN (Urea Nitrogen) 41 mg/dL (9.8-20.1); Bilirubin, Total 0.4 mg/dL (0.2-1.2); Calc. Creatinine Clearance 0 mL/min (70-130); Calcium 8.2 mg/dL (7.8-10.44); Carbon Dioxide 26 mmol/L (23-31); Chloride 97 mmol/L (98-107); Estimated GFR-MDRD 7; Globulin 4.1 g/dL (2.4-3.5); Glucose 199 mg/dL (80-115); Potassium 4.1 mmol/L (3.5-5.1); Protein, Total 7.9 g/dL (6.0-8.3); Sodium 137 mmol/L (136-145)
[2020-04-13] MEDS ORDERED: Morphine 4 MG/ML VIAL ONE (18:46)
== END 2020-04-13 19:28 | disposition home or self-care (01) ==
LOC: ERS 17:20
DX: L03.116 Cellulitis of left lower limb (principal); E11.9 Type 2 diabetes mellitus without complications; E78.5 Hyperlipidemia, unspecified; E78.00 Pure hypercholesterolemia, unspecified; I10 Essential (primary) hypertension; Z89.611 Acquired absence of right leg above knee; N28.9 Disorder of kidney and ureter, unspecified; Z99.2 Dependence on renal dialysis; Z79.899 Other long term (current) drug therapy
CPT/HCPCS: 80053; 85025; 85610; 85652; 85730; 86140; 93005; 96374; J2270

== ENCOUNTER 2020-04-15 13:58 | Inpatient (IN) | payer MEDICARE, MEDICAID, OTHER ==
--- NOTE | 2020-04-15 14:33 | RAD ---
EXAM: Single view of the chest HISTORY: Bilateral leg pain COMPARISON: 10/13/2019 FINDINGS: Single view of the chest shows a normal sized cardiomediastinal silhouette. There is no alison dence of consolidation, mass, or pleural effusion. Degenerative changes are seen in the spine. IMPRESSION: No evidence of acute cardiopulmonary disease
[2020-04-15 14:57] LABS: #Lymphocytes 1.4 thou/uL (1.20-3.40); #Monocytes 0.7 thou/uL (0.11-0.59); #Neutrophils 7.2 thou/uL (1.40-6.50); %Basophils 0.2 % (0.0-1.0); %Eosinophils 0.5 % (0.0-10.0); %Lymphocytes 15.3 % (21.0-51.0); %Monocytes 7.4 % (0.0-10.0); %Neutrophils 76.6 % (42.0-75.0); Mean Corpuscular Hemoglobin 32.2 pg (27.0-31.0); Mean Corpuscular Volume 94.8 fL (78.0-98.0); Platelet Count 169 thou/uL (130-400); RBC Distribution Width 13.7 % (11.5-14.5); Red Blood Cell (RBC) Count 2.78 mill/uL (4.20-5.40); White Blood Cell (WBC) Count 9.4 thou/uL (4.8-10.8)
[2020-04-15 15:26] LABS: ALT (SGPT) 9 U/L (8-55); AST (SGOT) 13 U/L (5-34); Albumin 3.7 g/dL (3.4-4.8); Alkaline Phosphatase 114 U/L (40-110); Anion Gap 21 mmol/L (10-20); BUN (Urea Nitrogen) 74 mg/dL (9.8-20.1); Bilirubin, Total 0.5 mg/dL (0.2-1.2); Calc. Creatinine Clearance 0 mL/min (70-130); Calcium 7.6 mg/dL (7.8-10.44); Carbon Dioxide 20 mmol/L (23-31); Chloride 96 mmol/L (98-107); Estimated GFR-MDRD 4; Glucose 264 mg/dL (80-115); Potassium 5.4 mmol/L (3.5-5.1); Protein, Total 7.7 g/dL (6.0-8.3); Sodium 132 mmol/L (136-145)
[2020-04-15] MEDS ORDERED: Morphine 4 MG/ML VIAL ONE ×2 (16:03→18:15)
[2020-04-15] MEDS ORDERED: Ondansetron PF 4 MG/2 ML Vial ONE (16:03)
--- NOTE | 2020-04-15 16:11 | RAD ---
Left foot 3 views HISTORY: Pain. COMPARISON: 04/13/2020. FINDINGS: Lisfranc joint alignment is anatomic. Plantar arch is maintained. Plantar heel spur is now better visualized. Osseous structures are severely demineralized. Focal area osteopenia involving the lateral head of th e proximal phalanx of the fourth toe is similar in appearance to the prior study. No acute fracture or dislocation. Scattered mild osteoarthritic changes. Osteoarthritic changes most pronounced at the ankle. Prominent calcification of the arterial structures. IMPRESSION : Severe osteoporosis. Focal area of osteolysis at the lateral head of the proximal phalanx fourth toe could represent an aggressive process (such as osteomyelitis). Please correlate with clinical findings. Osteoarthritic changes most severe at the ankle joint. Atherosclerosis.
[2020-04-15] MEDS ORDERED: Cefepime 2 GM VIAL ONE (18:15)
[2020-04-15] MEDS ORDERED: Vancomycin 1 GM/200 ML BAG ONE (18:57)
[2020-04-15] MEDS ORDERED: Calcium Carbonate 500 MG ChewTAB PO PRN (20:11)
[2020-04-15] MEDS ORDERED: Acetaminophen 650 MG Suppository PR PRN (20:11)
[2020-04-15] MEDS ORDERED: Dextrose 50% Abboject 50 ML SYRINGE SLOW IVP PRN (20:17)
[2020-04-15] MEDS ORDERED: Dextrose 5% in Water 1,000 ML IV PRN (20:17)
[2020-04-15] MEDS ORDERED: Metoclopramide HCl 10 MG TAB PO PRN (20:19)
--- NOTE | 2020-04-15 20:21 | PDOC.HHP ---
Hospitalist HPI - History of Present Illness foot pain History of Present Illness: Case of an 59y/o female with pmhx of esrd on h/d htn hyperlipidemia and htn who comes to hospital due to foot pain. patient refers she was on her usual state of health until atleast 1 month ago when she started to notice some foot swelling and erythema, she also states some non quantify fevers from time to time. but refers that 2 days ago swelling became more severe as well and erythema and it started to be very painful. she states that for the last two days it has significantly worse and pain was unberable for which she came to hospital for evaluation. of note patient came to hospital 2 days ago and was discharge on clindamycin wich she refers took w/o improvement of symptoms. patient also complains of recent onset of nause / vomiting and chills. evaluated and the ED leg xr consistent with OM, hospitalist was called for further evaluation and management Hospitalist ROS - Review of Systems All other systems reviewed; all pertinent +/- noted in HPI/Subj Hospitalist History - Past Medical History Source: patient Cardiac: reports: HTN, Hyperlipidemia Renal/: reports: Other (ESRD/HD) Endocrine: reports: Diabetes - Past Surgical History Past Surgical History: reports: (x5), Hysterectomy, Other (Dialysis shunt to right chest fistula to left arm bilateral eye surgeries) - Family History Family History: reports: diabetes mellitus, hyperlipidemia, hypertension - Social History Smoking Status: Never smoker Alcohol: reports: None Drugs: reports: none - Exam General Appearance: NAD, awake alert Eye: PERRL, anicteric sclera ENT: normocephalic atraumatic, no oropharyngeal lesions Neck: supple, symmetric, no JVD, no thyromegaly Heart: RRR, no murmur, no gallops, no rubs Respiratory: CTAB, no wheezes, no rales Gastrointestinal: soft, non-tender, non-distended Extremities - other findings: r aka, L foot w erythema swelling and painful to palpation Neurological: cranial nerve grossly intact, normal sensation to touch Musculoskeletal: normal tone, normal strength Psychiatric: normal affect, normal behavior, A&O x 3 Hospitalist Results - Labs Result Diagrams: 04/15/20 14:45 04/15/20 14:45 Lab results: WBC 9.4 thou/uL (4.8-10.8) 04/15/20 14:45 Hgb 9.0 g/dL (12.0-16.0) L 04/15/20 14:45 Hct 26.4 % (36.0-47.0) L 04/15/20 14:45 MCV 94.8 fL (78.0-98.0) 04/15/20 14:45 Plt Count 169 thou/uL (130-400) 04/15/20 14:45 Neutrophils % 76.6 % (42.0-75.0) H 04/15/20 14:45 Sodium 132 mmol/L (136-145) L 04/15/20 14:45 Potassium 5.4 mmol/L (3.5-5.1) H 04/15/20 14:45 Chloride 96 mmol/L (98-107) L 04/15/20 14:45 Carbon Dioxide 20 mmol/L (23-31) L 04/15/20 14:45 BUN 74 mg/dL (9.8-20.1) H 04/15/20 14:45 Creatinine 9.71 mg/dL (0.6-1.1) H 04/15/20 14:45 Glucose 264 mg/dL (80-115) H 04/15/20 14:45 Calcium 7.6 mg/dL (7.8-10.44) L 04/15/20 14:45 Total Bilirubin 0.5 mg/dL (0.2-1.2) 04/15/20 14:45 AST 13 U/L (5-34) 04/15/20 14:45 ALT 9 U/L (8-55) 04/15/20 14:45 Alkaline Phosphatase 114 U/L (40-110) H 04/15/20 14:45 CK-MB (CK-2) 2.0 ng/mL (0-6.6) 04/15/20 14:45 Troponin I 0.033 ng/mL (< 0.028) H 04/15/20 14:45 B-Natriuretic Peptide 498.2 pg/mL (0-100) H 04/15/20 14:45 Serum Total Protein 7.7 g/dL (6.0-8.3) 04/15/20 14:45 Albumin 3.7 g/dL (3.4-4.8) 04/15/20 14:45 Hospitalist H&P A/P - Problem (1) Osteomyelitis Code(s): M86.9 - OSTEOMYELITIS, UNSPECIFIED Status: Acute (2) Cellulitis Code(s): L03.90 - CELLULITIS, UNSPECIFIED Status: Acute (3) Nausea & vomiting Code(s): R11.2 - NAUSEA WITH VOMITING, UNSPECIFIED Status: Acute (4) Diabetes mellitus type 2, uncontrolled Code(s): E11.65 - TYPE 2 DIABETES MELLITUS WITH HYPERGLYCEMIA Status: Chronic (5) ESRD (end stage renal disease) on dialysis Code(s): N18.6 - END STAGE RENAL DISEASE; Z99.2 - DEPENDENCE ON RENAL DIALYSIS Status: Chronic (6) HLD (hyperlipidemia) Code(s): E78.5 - HYPERLIPIDEMIA, UNSPECIFIED Status: Chronic Qualifiers: Hyperlipidemia type: unspecified Qualified Code(s): E78.5 - Hyperlipidemia , unspecified (7) HTN (hypertension) Code(s): I10 - ESSENTIAL (PRIMARY) HYPERTENSION Status: Chronic Qualifiers: (8) Hyperkalemia Code(s): E87.5 - HYPERKALEMIA Status: Acute - Plan Plan: 59y/o female with the stated pmhx admitted due to L foot osteomyelitis - cefepime and vancomycin - renally adjusted - f/u cultures - pain management - symptomatic tx for nause and vomiting - machine repairer maintenance consulted for h/d tx - ID consulted - accu checks and sliding scale - continue home meds for chronic conditions - dvt prophylaxis - leg u/s 2 days ago negative for dvt - hyperkalemia, mild no ekg changes h/d as per machine repairer maintenance, will follow bmp in am - failed out pt therapy clindaymycin
[2020-04-15] MEDS ORDERED: Vancomycin HCl 500 MG in Sodium Chloride 0.9% 100 ML IVPB SCH (22:15)
[2020-04-15] MEDS ORDERED: Vancomycin HCl 750 MG in Sodium Chloride 0.9% 250 ML 250 ML IVPB SCH (22:15)
[2020-04-15] MEDS ORDERED: HOLD VANCOMYCIN FOR LEVEL >20 FS SCH (22:15)
[2020-04-15] MEDS ORDERED: Vancomycin 1 GM in Premix Bag 1 BAG IVPB SCH (22:15)
[2020-04-15] MEDS ORDERED: Vancomycin HCl 1.25 GM in Sodium Chloride 0.9% 250 ML 250 ML IVPB SCH (22:15)
[2020-04-15 22:21] LABS: Troponin I 0.036 ng/mL (< 0.028)
[2020-04-15] MEDS: HYDROcodone/Acetaminophen 5/325 mg Tablet PO PRN (22:24)
[2020-04-15] MEDS: hydrALAZINE 25 MG TAB PO SCH (22:25)
[2020-04-15] MEDS: Metoprolol Tartrate 25 MG TAB PO SCH (22:25)
[2020-04-15] MEDS: Insulin Glargine 10 UNITS in Pre-Filled Syringe 1 EACH SC SCH ×2 (22:27→22:53)
[2020-04-16] MEDS: Ondansetron PF 4 MG/2 ML Vial IVP PRN ×3 (03:51→20:28)
[2020-04-16] MEDS: HYDROcodone/Acetaminophen 5/325 mg Tablet PO PRN (03:53)
[2020-04-16 06:20] LABS: Band 4 % (5-11); Eosinophils 2 % (0-10); Hemoglobin 8.4 g/dL (12.0-16.0); Lymphocytes 11 % (21-51); MDiff Complete? YES; Mean Corpuscular HGB CONC 33.2 g/dL (32.0-36.0); Mean Corpuscular Hemoglobin 31.7 pg (27.0-31.0); Mean Corpuscular Volume 95.6 fL (78.0-98.0); Mean Platelet Volume 7.8 fL (7.4-10.4); Monocytes 5 % (0-10); Neutrophil 78 % (42-75); Platelet Count 164 thou/uL (130-400); Platelet Morphology Comment Appears Adequate; RBC Distribution Width 13.8 % (11.5-14.5); Red Blood Cell (RBC) Count 2.66 mill/uL (4.20-5.40); White Blood Cell (WBC) Count 8.4 thou/uL (4.8-10.8)
[2020-04-16 06:27] LABS: ALT (SGPT) 8 U/L (8-55); AST (SGOT) 12 U/L (5-34); Albumin 3.4 g/dL (3.4-4.8); Alkaline Phosphatase 101 U/L (40-110); Anion Gap 22 mmol/L (10-20); BUN (Urea Nitrogen) 80 mg/dL (9.8-20.1); Bilirubin, Total 0.5 mg/dL (0.2-1.2); Calc. Creatinine Clearance 7 mL/min (70-130); Calcium 7.1 mg/dL (7.8-10.44); Carbon Dioxide 18 mmol/L (23-31); Chloride 97 mmol/L (98-107); Estimated GFR-MDRD 4; Globulin 3.6 g/dL (2.4-3.5); Glucose 185 mg/dL (80-115); Potassium 5.4 mmol/L (3.5-5.1); Sodium 132 mmol/L (136-145)
--- NOTE | 2020-04-16 08:50 | CON ---
DATE OF CONSULTATION: HISTORY OF PRESENT ILLNESS: Ms. Saldivar is a 59-year-old female with ESRD from presumed diabetic nephropathy, type 2 diabetes mellitus and admitted for severe left foot pain. She was noted to have some ischemic toes. She was seen at the ER two days ago for the same complaints, was given clindamycin. However, the foot pain remains persistent and has worsened. We are now being consulted for maintenance hemodialysis/ESRD. She missed dialysis yesterday. She also has history of volume overload. REVIEW OF SYSTEMS: Positive for left foot pain. Denies any fever. No chest pain. Mild shortness of breath. Appetite and energy level are decreased. No headache. No diplopia. No gross hematuria. No dysuria. No urinary frequency. No hematochezia. No melena. No hematemesis. MEDICATIONS: Currently on, 1. Aspirin 81 mg daily. 2. Cefepime 0.5 g IV q.24 hours. 3. Lovenox 30 mg subcu daily. 4. Ferrous sulfate 325 mg p.o. t.i.d. 5. Humalog sliding scale. 6. Hydralazine 50 mg p.o. t.i.d. 7. Insulin glargine 10 units subcu at bedtime. 8. Isosorbide mononitrate 15 mg tablet once a day. 9. Lisinopril 10 mg daily. 10. Metoclopramide 5 mg p.o. t.i.d. p.r.n. 11. Metoprolol tartrate 25 mg p.o. b.i.d. 12. Renvela 800 mg-four tabs t.i.d. with meals. 13. Vancomycin sliding scale. PAST MEDICAL HISTORY: 1. ESRD from diabetic nephropathy. 2. Type 2 diabetes mellitus. 3. Hypertension. 4. Status post CHF. 5. Hypothyroidism. 6. Coronary artery disease. 7. Peripheral vascular disease. 8. Diabetic neuropathy. 9. Hyperlipidemia. PAST SURGICAL HISTORY: Status post AV fistula placement, status post cuffed hemodialysis catheter placement, status post hysterectomy, status post aortogram with right lower extremity runoff with [employer] and stent placement to the right anterior tibial artery, and status post angioplasty of the right popliteal, s/p right AKA SOCIAL HISTORY: The patient is . She lives in [place]. No smoking. No alcohol intake. Four children. Sedentary lifestyle. Status post blood transfusion. No IV drug abuse. ALLERGIES: NONE. TRAUMA: None. IMMUNIZATIONS: Up-to-date. HOSPITALIZATIONS: Please see past medical history. FAMILY HISTORY: No family history of ESRD. PHYSICAL EXAMINATION: VITAL SIGNS: Blood pressure 123/58, heart rate 66, respiratory rate 20, temperature 97.7, and O2 saturation is 95%. GENERAL: She is noted to be awake in mild distress from the pain. HEENT: : Slightly pale conjunctivae. Anicteric sclerae. NECK: No neck mass. No carotid bruits. No JVD. CHEST: No deformities. LUNGS: Clear breath sounds. HEART: Normal sinus rhythm. No murmur. No gallops. No rubs. ABDOMEN: Globular, soft, nontender. No masses. EXTREMITIES: Status post right AKA, left foot with erythema and mild discoloration of the toes. NEUROLOGIC: Moving all extremities. No tremors. No asterixis. Oriented to 3 spheres. LABORATORY DATA: Laboratories of April 15, 2020; white count 9.4, hemoglobin 9. April 15, 2020; sodium 132, potassium 5.4, chloride 96, carbon dioxide 20, BUN 74 , creatinine 9.71, glucose 264. Laboratories of April 16, 2020, showed white count 8.4, hemoglobin 8.4. Sodium 132, potassium 5.4, chloride 97, carbon dioxide 18, BUN 80, creatinine 10.48, calcium 7.1. C-reactive protein 14.17. April 15, 2020, x-ray of the left foot showed prominent calcification of the arterial structures. There is some demineralization of the bones. There are scattered mild osteoarthritic changes. Chest x-ray of April 15, 2020, no CHF. ASSESSMENT AND PLAN: 1. End-stage renal disease, stable. We will continue current hemodialysis regimen. The patient did miss her dialysis yesterday. Our plan is for her to undergo a 3-hour hemodialysis today and resume back her Wednesday, Wednesday, and Wednesday dialysis tomorrow. 2. Left foot infection/cellulitis-on empiric IV antibiotics for presumed osteomyelitis. - surgery to be consulted 3. Anemia. We will resume Epogen at 7500 units subcu every week. 4. Volume overload-the patient has history of volume overload at the dialysis unit. We will remove fluid as tolerated by this patient. Overall, agreed with current management. Job ID: [id number] [facility]
--- NOTE | 2020-04-16 11:22 | CON ---
DATE OF CONSULTATION: HISTORY OF PRESENT ILLNESS: Veronica Saldivar is a 59-year-old female, diabetic, hypertensive, end-stage renal disease on maintenance dialysis, status post right BKA, who presents with a left 4th toe pain and actually pain to her ankle. This has been going on for several weeks. Dr. Sepulveda saw her in November 2018, performing aortogram with runoff of right lower extremity with CORROSION ENGINEER SFA with stenting of the anterior tibial. She eventually required BKA. She presented to the emergency room yesterday, was admitted to the hospitalist service, complaining of foot pain. On evaluation, her foot is painful. Her left 4th toe is ischemic in appearance and very tender. It does not appear to be infected. She has a nonpalpable, non-dopplerable posterior tibial pulse and a dopplerable dorsalis pedis pulse. I can palpate a femoral pulse, but cannot palpate a popliteal pulse. PAST SURGICAL HISTORY: , hysterectomy, left upper arm dialysis graft, DRIL procedure using saphenous vein of left leg, and bilateral eye surgeries. SOCIAL HISTORY: Tobacco, never. Alcohol, none. Drug use, none. PAST MEDICAL HISTORY: End-stage renal disease, on maintenance dialysis; diabetes; hypertension; PAD; status post right BKA; status post arterial studies with Dr. Sepulveda in November last year; and GERD. FAMILY HISTORY: Noncontributory otherwise. REVIEW OF SYSTEMS: Otherwise, noncontributory. PHYSICAL EXAMINATION: VITAL SIGNS: 4 feet 10 inches, 174 pounds, 36 BMI, 97 degrees, pulse 66, respiratory rate 20, and blood pressure 123/58. HEAD, EARS, EYES, NOSE, AND THROAT: Unremarkable. LUNGS: Clear to auscultation. CARDIAC: Regular rate and rhythm without murmur or gallop. ABDOMEN: Obese, soft. EXTREMITIES: Palpable femoral pulse, left, nonpalpable popliteal pulse. Dopplerable only dorsalis pedis pulse. Non-dopplerable posterior tibial pulse, left. Status post right BKA. LABORATORY DATA: White count 8 and hemoglobin 8.4. Basic metabolic profile; sodium 132, potassium 5.4. Renal function consistent with end-stage renal disease. ASSESSMENT AND PLAN: Apparent rest pain, left foot. She has ischemic changes of the left 4th toe. Would consult Dr. Adriel Sepulveda to evaluate this again in his opinion. I suspect she has tibioperoneal disease. We will await his opinion. Emergent intervention is not necessary and she is at risk of limb loss, left leg at this point. Job ID: [id number]
[2020-04-16] MEDS: EPOETIN ALFA-EPBX (ESRD) 4,000 UNIT/ML VIAL SC SCH (12:33)
[2020-04-16] MEDS: Sevelamer Carbonate 800 MG TAB PO SCH ×3 (12:44→16:07)
[2020-04-16] MEDS: hydrALAZINE 25 MG TAB PO SCH ×3 (12:44→22:56)
[2020-04-16] MEDS: Ferrous Sulfate 325 MG TAB PO SCH ×3 (12:44→16:07)
[2020-04-16] MEDS: Aspirin 81 mg Enteric Coated Tablet PO SCH (13:39)
[2020-04-16] MEDS: Lisinopril 10 MG TAB PO SCH (13:40)
[2020-04-16] MEDS: Metoprolol Tartrate 25 MG TAB PO SCH ×2 (13:40→22:57)
[2020-04-16] MEDS: Enoxaparin Sodium 30 MG/0.3 ML SYRINGE SC SCH (13:42)
--- NOTE | 2020-04-16 14:49 | PDOC.HOSPP ---
- Subjective Encounter Date: 04/16/20 Subjective: Feeling a little better. Had some nausea and vomiting after HD, but that has improved. - Objective Vital Signs & Weight: Vital Signs (12 hours) Temp Pulse Resp BP Pulse Ox 04/16/20 13:30 98.5 F 80 20 176/73 H 93 L 04/16/20 07:35 97.7 F 66 20 123/58 L 95 04/16/20 03:55 97.8 F 78 20 153/67 H 92 L Weight Admit Weight 174 lb 4.8 oz Weight 174 lb 4.8 oz I&O: 04/15/20 04/16/20 04/17/20 06:59 06:59 06:59 Intake Total 200 Output Total 1999 Balance 200 -1999 Result Diagrams: 04/16/20 05:56 04/16/20 05:56 Additional Labs: Accuchecks 04/16/20 04/16/20 04/15/20 10:33 06:07 22:36 POC Glucose 172 H 203 H 178 H Hospitalist ROS - Medication Medications: Active Medications Generic Name Dose Route Start Last Admin Trade Name Freq PRN Reason Stop Dose Admin Hydrocodone Bitart/Acetaminophen 2 tab 04/15/20 20:11 04/16/20 03:53 Smilax 5/325 PO 2 tab Q4H PRN Administration Severe Pain (7-10) Aspirin 81 mg 04/16/20 09:00 04/16/20 13:39 Ecotrin PO Not Given DAILY JONATHAN Enoxaparin Sodium 30 mg 04/16/20 09:00 04/16/20 13:42 Lovenox SC 30 mg 0900 JONATHAN Administration Epoetin Marcelo-epbx 7,500 unit 04/16/20 08:15 04/16/20 12:33 Retacrit SC 7,500 unit Q7D JONATHAN Administration Ferrous Sulfate 325 mg 04/16/20 08:00 04/16/20 13:40 Feosol PO Not Given TID-[facility] Hydralazine HCl 50 mg 04/15/20 21:00 04/16/20 12:44 Apresoline PO Not Given TID [facility] Insulin Glargine 10 units/ 0.1 mls @ 0 mls/hr 04/15/20 21:00 04/15/20 22:53 Miscellaneous Medication SC 0.1 mls HS JONATHAN Administration Isosorbide Mononitrate 15 mg 04/16/20 09:00 04/16/20 13:40 Imdur Er PO Not Given DAILY JONATHAN Lisinopril 10 mg 04/16/20 09:00 04/16/20 13:40 Zestril PO Not Given DAILY JONATHAN Metoprolol Tartrate 25 mg 04/15/20 21:00 04/16/20 13:40 Lopressor PO Not Given BID JONATHAN Ondansetron HCl 4 mg 04/15/20 20:11 04/16/20 13:36 Zofran IVP 4 mg Q6H PRN Administration Nausea/Vomiting Sevelamer Carbonate 2,400 mg 04/16/20 08:00 04/16/20 13:41 Renvela PO Not Given TID-WM JONATHAN - Exam General Appearance: NAD, awake alert General - other findings: Obese. Heart: RRR, no murmur, no gallops, no rubs, normal peripheral pulses Respiratory: CTAB, no wheezes, no rales, no ronchi, normal chest expansion, no tachypnea, normal percussion Gastrointestinal: soft, non-tender, non-distended, normal bowel sounds, no palpable masses, no hepatomegaly, no splenomegaly, no bruit Extremities: no cyanosis, no clubbing, no edema Skin: normal turgor Musculoskeletal: normal tone Psychiatric: normal affect, normal behavior, A&O x 3, somnolent (mildly) Hosp A/P (1) Ischemic toe Code(s): I99.8 - OTHER DISORDER OF CIRCULATORY SYSTEM Status: Acute (2) ESRD (end stage renal disease) on dialysis Code(s): N18.6 - END STAGE RENAL DISEASE; Z99.2 - DEPENDENCE ON RENAL DIALYSIS Status: Acute (3) Cellulitis Code(s): L03.90 - CELLULITIS, UNSPECIFIED Status: Acute (4) Hyperkalemia Code(s): E87.5 - HYPERKALEMIA Status: Acute (5) Nausea & vomiting Code(s): R11.2 - NAUSEA WITH VOMITING, UNSPECIFIED Status: Acute (6) Chronic anemia Code(s): D64.9 - ANEMIA, UNSPECIFIED Status: Chronic (7) DM type 2 (diabetes mellitus, type 2) Status: Chronic Qualifiers: Diabetes mellitus complication status: with kidney complications Diabetes mellitus complication detail: with chronic kidney disease Chronic kidney disease stage: on chronic dialysis (8) HTN (hypertension) Code(s): I10 - ESSENTIAL (PRIMARY) HYPERTENSION Status: Chronic Qualifiers: (9) Peripheral artery disease Code(s): I73.9 - PERIPHERAL VASCULAR DISEASE, UNSPECIFIED Status: Chronic - Plan Left fourth toe infarct: Left fourth toe is ischemic. Dr. Sepulveda consulted, Dr. Gonzalez consulted. Will need vasc eval/intervention prior to surgical intervention. She is on Vanc and Cefepime, although it is not clear that there is an infectious component at this juncture. ESRD: Nephrology following. Continue HD. DM: Fair control. No change. HTN: Stable. Hyperkalemia: Mild. Secondary to the ESRD. N/V: Seems to be transient.
[2020-04-16] MEDS ORDERED: Cefepime 0.5 GM in Admixture Fee 1 EACH IVPB SCH (18:00)
[2020-04-16] MEDS: Cefepime 0.5 GM in Sodium Chloride 0.9% 100 ML IVPB SCH (20:28)
--- NOTE | 2020-04-16 21:49 | CON ---
DATE OF CONSULTATION: HISTORY OF PRESENT ILLNESS: This is a 59-year-old female with end-stage renal disease, insulin-dependent diabetes mellitus, and severe peripheral vascular disease, who presents to the hospital with pain in her foot. She was evidently at an outlying emergency room about 5 days ago complaining of the same thing and is now here. She is a very poor historian and I have called her daughter on the phone, who even knows less of the patient about her current circumstances. The pain in the foot is primary symptom with subjective fever, but no documented fever. She was placed in the hospital on antibiotics, seen by Dr. Gonzalez, who was concerned about the discoloration of her 4th toe and absence of palpable pulses in her popliteal or pedal vessels, and I was asked to see her in regard to possible angiography. PAST MEDICAL HISTORY: As mentioned, her past medical history includes multiple cardiovascular risk factors including hypertension, diabetes, dyslipidemia, and end-stage renal disease, on Wednesday, Wednesday, Wednesday dialysis. PAST SURGICAL HISTORY: Includes a right [id number] amputation sometime last year, but she does not know when or where or her surgeon. She has had a previous , hysterectomy, and procedures for her dialysis fistula in her left arm including for ischemic complications. PHYSICAL EXAMINATION: GENERAL: She is alert, but complaining of pain and moaning about being nauseated and really cannot answer any direct question with a direct answer. LUNGS: On examination, otherwise her lungs are clear anteriorly. CARDIAC: Demonstrates heart rate of about 80. NECK: No carotid bruits. ABDOMEN: Quite obese, but nontender throughout. EXTREMITIES: She has palpable femoral pulses bilaterally. 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 She has no palpable left popliteal or pedal pulses and her doppler signals diminished in the popliteal, although dorsalis pedis signal seems relatively good and there is no posterior tibial signal. She has no leg swelling, but does appear to have some swelling in her foot with blue to black 4th toe and some discoloration over the dorsum of her foot, more dark in nature than cellulitic. LABORATORY DATA: Her white count is normal with 4 bands. She has been afebrile. Her hemoglobin is 8.4. PLAN: At this time is for angiography of her left leg with possible intervention. Her pain is certainly significant, but it is not clear to me whether it is related to an ischemic toe, severe circulatory impairment of her foot, or perhaps an infection. I have reviewed her x-rays and we will plan on this tomorrow. I have discussed this with the daughter and the patient. Job ID: [id number]
[2020-04-16] MEDS ORDERED: Morphine 2 MG/ML SYRINGE SLOW IVP SCH (22:45)
[2020-04-16] MEDS: Insulin Glargine 10 UNITS in Pre-Filled Syringe 1 EACH SC SCH (22:56)
[2020-04-16] MEDS ORDERED: Promethazine HCl 25 MG in Sodium Chloride 0.9% 50 ML IVPB SCH (23:00)
[2020-04-17 05:02] LABS: #Eosinphils 0.1 thou/uL (0.0-0.7); #Monocytes 0.7 thou/uL (0.11-0.59); #Neutrophils 4.6 thou/uL (1.40-6.50); %Basophils 0.2 % (0.0-1.0); %Eosinophils 0.9 % (0.0-10.0); %Lymphocytes 16.4 % (21.0-51.0); %Monocytes 10.6 % (0.0-10.0); %Neutrophils 71.8 % (42.0-75.0); Hemoglobin 8.8 g/dL (12.0-16.0); Mean Corpuscular HGB CONC 33.2 g/dL (32.0-36.0); Mean Corpuscular Hemoglobin 31.7 pg (27.0-31.0); Mean Corpuscular Volume 95.5 fL (78.0-98.0); Mean Platelet Volume 7.9 fL (7.4-10.4); Platelet Count 184 thou/uL (130-400); RBC Distribution Width 13.7 % (11.5-14.5); Red Blood Cell (RBC) Count 2.79 mill/uL (4.20-5.40); White Blood Cell (WBC) Count 6.4 thou/uL (4.8-10.8)
[2020-04-17 05:16] LABS: Anion Gap 16 mmol/L (10-20); BUN (Urea Nitrogen) 36 mg/dL (9.8-20.1); Calc. Creatinine Clearance 11 mL/min (70-130); Calcium 7.3 mg/dL (7.8-10.44); Carbon Dioxide 29 mmol/L (23-31); Chloride 96 mmol/L (98-107); Estimated GFR-MDRD 6; Glucose 108 mg/dL (80-115); Potassium 3.9 mmol/L (3.5-5.1); Sodium 137 mmol/L (136-145)
[2020-04-17] MEDS: Ferrous Sulfate 325 MG TAB PO SCH ×3 (08:50→16:57)
[2020-04-17] MEDS: Sevelamer Carbonate 800 MG TAB PO SCH ×3 (08:50→16:57)
[2020-04-17] MEDS: Enoxaparin Sodium 30 MG/0.3 ML SYRINGE SC SCH (08:50)
[2020-04-17] MEDS: hydrALAZINE 25 MG TAB PO SCH ×3 (08:50→22:04)
[2020-04-17] MEDS: Aspirin 81 mg Enteric Coated Tablet PO SCH ×2 (08:50→15:42)
[2020-04-17] MEDS: Metoprolol Tartrate 5 MG/5 ML VIAL IVP SCH ×2 (08:51→21:58)
[2020-04-17] MEDS: Metoprolol Tartrate 25 MG TAB PO SCH ×2 (08:51→22:05)
[2020-04-17] MEDS: Lisinopril 10 MG TAB PO SCH ×2 (08:51→15:42)
[2020-04-17] MEDS ORDERED: Iopamidol 370 76% 50 ML VIAL FS ONE (09:05)
--- NOTE | 2020-04-17 09:48 | PRG ---
DATE OF SERVICE: 04/17/2020 SUBJECTIVE: Ms. Saldivar is a 59-year-old female with ESRD, who was admitted for left foot pain. She was found to have ischemic left foot. Surgery has been consulted and the plan is for her to undergo possible surgery of the ischemic toe-? BKA. The patient voices no new complaints today. No chest pain or shortness of breath. I have scheduled in for her regular hemodialysis regimen to schedule today. OBJECTIVE: VITAL SIGNS: Blood pressure 117/55, heart rate 62, respiratory rate 18, temperature 97.9, and O2 saturation 94%. GENERAL: The patient is awake, alert, and comfortable, not in overt distress. SKIN: Adequate turgor. HEENT: Slightly pale conjunctivae. Anicteric sclerae. NECK: No neck mass. No carotid bruits. No JVD. CHEST: No deformities. LUNGS: Clear breath sounds. HEART: Normal sinus rhythm. No murmur. No gallops. No rubs. ABDOMEN: Globular. Soft and nontender. No masses. EXTREMITIES: Status post right AKA, left foot-erythema with some cyanosis. MEDICATIONS: Medications of April 17, 2020, reviewed. LABORATORY DATA: Laboratories of April 17, 2020; white count 6.4, hemoglobin 8.8, sodium 137, potassium 3.9, chloride 96, carbon dioxide 29, BUN 36, creatinine 6.85, and calcium is 7.3. ASSESSMENT AND PLAN: 1. Left foot ischemia-surgery is following for a possible devascularization versus an amputation. Continue supportive care. 2. End-stage renal disease, stable. We will continue current Wednesday, Wednesday, and Wednesday hemodialysis regimen. Again, maxing out fluid removal as tolerated by the patient. 3. Anemia, continuing weekly Epogen and iron supplementation. Job ID: [id number]
[2020-04-17 10:03] LABS: Vancomycin, Random 11.3 ug/mL (See Comment)
[2020-04-17] MEDS ORDERED: Heparin 10,000 UNITS/1 ML VIAL ONE (13:54)
[2020-04-17] MEDS ORDERED: Clopidogrel Bisulfate 75 MG TAB ONE (14:40)
[2020-04-17] MEDS ORDERED: Protamine Sulfate 50 MG/5 ML VIAL ONE (15:14)
[2020-04-17] MEDS: HYDROcodone/Acetaminophen 5/325 mg Tablet PO PRN (16:57)
--- NOTE | 2020-04-17 18:03 | OP ---
DATE OF PROCEDURE: 04/17/2020 PREOPERATIVE DIAGNOSIS: Ischemic rest pain, left foot. PROCEDURE PERFORMED: Left lower extremity arteriogram with angioplasty using a 3-mm balloon to the left superficial femoral artery and left popliteal and left anterior tibial origin, stenting of a focal stenosis in the left superficial femoral artery with a 3.2 x 16 Synergy stent. ANESTHESIA: None. CONTRAST: 28. FLUORO: 14.7 minutes. DESCRIPTION OF PROCEDURE: After adequate prepping and draping, the right groin was infiltrated with lidocaine after using ultrasound-guided puncture of the femoral artery. Following placement of a micropuncture and then 0.035 wire, a 5-Hungarian dilator and sheath, fluoroscopy of the right groin demonstrated no calcification of the common femoral artery, although the SFA was calcified. Following this, the Contra catheter was advanced over the wire and using the Contra catheter, the wire was advanced into the left common femoral artery followed by the Contra catheter and runoff was obtained, demonstrating multiple high-grade lesions of the distal SFA , entire popliteal artery and origin of the anterior tibial. The posterior tibial and peroneal were occluded and anterior tibial flowed into the foot. Following heparinization with an ACT of 240 seconds, a 6-Hungarian Destination sheath was advanced over the wire into the SFA where a Luge wire was directed into the anterior tibial artery. A 3 x 220 balloon was inflated multiple times, and there was one segment of the distal SFA that did not open entirely. Contrast studies demonstrated some several small dissections of the popliteal artery. However, it was too small to consider stenting this entire vessel. Attempts to crack the SFA lesion that did not balloon were attempted with a 3 x 16 Synergy balloon and then a noncompliant 8-mm balloon was inflated several times within the stent. Following completion of this, there was good flow down the SFA and popliteal artery improved, but certainly suboptimal, and we will maintain the patient on dual antiplatelet therapy. She may and probably will ultimately come to amputation given the length of this lesion and the very small diameter vessel. proglide was used to close the puncture site Job ID: [id number] [facility]
--- NOTE | 2020-04-17 18:37 | PDOC.HOSPP ---
- Subjective Encounter Date: 04/17/20 Subjective: Patient denies any complaints. She actually is hungry today would like to have diet initiated. Tolerated the stenting of the lower extremity procedure well. - Objective Vital Signs & Weight: Vital Signs (12 hours) Temp Pulse Resp BP BP Pulse Ox 04/17/20 16:47 90 18 138/92 H 04/17/20 16:44 100.2 F H 90 18 138/62 98 04/17/20 15:42 81 170/72 H 04/17/20 15:22 100.0 F H 84 18 180/74 H 99 04/17/20 13:08 99.2 F 91 20 179/72 H 100 04/17/20 07:36 97.9 F 62 18 117/55 L 94 L Weight Admit Weight 174 lb 4.8 oz Weight 167 lb 12.348 oz I&O: 04/16/20 04/17/20 04/18/20 06:59 06:59 06:59 Intake Total 200 240 400 Output Total 2100 2500 Balance 200 -1860 -2100 Result Diagrams: 04/18/20 10:27 04/17/20 04:12 Additional Labs: Accuchecks 04/17/20 04/17/20 04/17/20 16:30 10:54 05:51 POC Glucose 115 H 87 103 04/16/20 20:35 POC Glucose 122 H Hospitalist ROS - Medication Medications: Active Medications Generic Name Dose Route Start Last Admin Trade Name Freq PRN Reason Stop Dose Admin Hydrocodone Bitart/Acetaminophen 2 tab 04/15/20 20:11 04/17/20 16:57 [place] 5/325 PO 2 tab Q4H PRN Administration Severe Pain (7-10) Aspirin 81 mg 04/16/20 09:00 04/17/20 15:42 Ecotrin PO 81 mg DAILY JONATHAN Administration Epoetin Marcelo-epbx 7,500 unit 04/16/20 08:15 04/16/20 12:33 Retacrit SC 7,500 unit Q7D JONATHAN Administration Ferrous Sulfate 325 mg 04/16/20 08:00 04/17/20 16:57 Feosol PO 325 mg TID-WM JONATHAN Administration Hydralazine HCl 50 mg 04/15/20 21:00 04/17/20 15:42 Apresoline PO 50 mg TID JONATHAN Administration Insulin Glargine 10 units/ 0.1 mls @ 0 mls/hr 04/15/20 21:00 04/16/20 22:56 Miscellaneous Medication SC Not Given HS JONATHAN Vancomycin HCl 750 mg/ Sodium 250 mls @ 250 mls/hr 04/15/20 22:15 04/17/20 11 :40 Chloride IVPB 250 mls WILLCALL JONATHAN Administration Cefepime HCl 0.5 gm/ Sodium 100 mls @ 200 mls/hr 04/16/20 21:00 04/16/20 20: 28 Chloride IVPB 100 mls Q24HR@2100 JONATHAN Administration Isosorbide Mononitrate 15 mg 04/16/20 09:00 04/17/20 15:42 Imdur Er PO 15 mg DAILY JONATHAN Administration Lisinopril 10 mg 04/16/20 09:00 04/17/20 15:42 Zestril PO 10 mg DAILY JONATHAN Administration Metoprolol Tartrate 25 mg 04/15/20 21:00 04/17/20 08:51 Lopressor PO Not Given BID [facility] Metoprolol Tartrate 5 mg 04/17/20 09:00 04/17/20 08:51 Lopressor IVP Not Given BID [facility] Ondansetron HCl 4 mg 04/15/20 20:11 04/16/20 20:28 Zofran IVP 4 mg Q6H PRN Administration Nausea/Vomiting Sevelamer Carbonate 2,400 mg 04/16/20 08:00 04/17/20 16:57 Renvela PO 2,400 mg TID-WM JONTAHAN Administration - Exam General Appearance: NAD General - other findings: A little somnolent post procedure. Heart: RRR, no murmur, no gallops, no rubs, normal peripheral pulses Respiratory: CTAB, no wheezes, no rales, no ronchi, normal chest expansion, no tachypnea, normal percussion Gastrointestinal: soft, non-tender, non-distended, normal bowel sounds, no palpable masses, no hepatomegaly, no splenomegaly, no bruit Extremities - other findings: Infarcted left fourth toe Musculoskeletal: generalized weakness Psychiatric: somnolent Hosp A/P (1) Ischemic toe Code(s): I99.8 - OTHER DISORDER OF CIRCULATORY SYSTEM Status: Acute (2) ESRD (end stage renal disease) on dialysis Code(s): N18.6 - END STAGE RENAL DISEASE; Z99.2 - DEPENDENCE ON RENAL DIALYSIS Status: Acute (3) Cellulitis Code(s): L03.90 - CELLULITIS, UNSPECIFIED Status: Acute (4) Hyperkalemia Code(s): E87.5 - HYPERKALEMIA Status: Acute (5) Nausea & vomiting Code(s): R11.2 - NAUSEA WITH VOMITING, UNSPECIFIED Status: Acute (6) Chronic anemia Code(s): D64.9 - ANEMIA, UNSPECIFIED Status: Chronic (7) DM type 2 (diabetes mellitus, type 2) Status: Chronic Qualifiers: Diabetes mellitus complication status: with kidney complications Diabetes mellitus complication detail: with chronic kidney disease Chronic kidney disease stage: on chronic dialysis (8) HTN (hypertension) Code(s): I10 - ESSENTIAL (PRIMARY) HYPERTENSION Status: Chronic Qualifiers: (9) Peripheral artery disease Code(s): I73.9 - PERIPHERAL VASCULAR DISEASE, UNSPECIFIED Status: Chronic - Plan Left fourth toe infarct: Left fourth toe is ischemic. Dr. Sepulveda consulted, performed angioplasty and stenting to the vasculature of the left lower extremity today. Tolerated well. She is currently empirically on antibiotics for possible infection of the area. It is unclear if that is the case or if this is purely just ischemic. We will continue to monitor after this procedure is see if we can promote some healing. ESRD: Nephrology following. Continue HD. Change her Lovenox to heparin 3 times daily. Initiate renal diet. DM: Fair control. No change. HTN: Stable. Hyperkalemia: Mild. Secondary to the ESRD. N/V: Resolved.
[2020-04-17] MEDS: Cefepime 0.5 GM in Sodium Chloride 0.9% 100 ML IVPB SCH (21:22)
[2020-04-17] MEDS: Heparin 5,000 UNITS/ML VIAL SC SCH (21:22)
[2020-04-17] MEDS: Insulin Glargine 10 UNITS in Pre-Filled Syringe 1 EACH SC SCH (22:05)
[2020-04-18] MEDS: HYDROcodone/Acetaminophen 5/325 mg Tablet PO PRN ×2 (04:02→11:20)
[2020-04-18] MEDS: Ondansetron PF 4 MG/2 ML Vial IVP PRN ×2 (04:06→11:11)
[2020-04-18] MEDS: Sevelamer Carbonate 800 MG TAB PO SCH ×3 (07:45→17:05)
[2020-04-18] MEDS: Ferrous Sulfate 325 MG TAB PO SCH ×3 (07:46→17:05)
--- NOTE | 2020-04-18 09:24 | PRG ---
DATE OF SERVICE: 04/18/2020 SUBJECTIVE: Ms. Saldivar is a 59-year-old female with ESRD - on maintenance hemodialysis and was admitted for an ischemic left foot. She underwent left lower extremity arteriogram with angioplasty and a balloon to the left superficial femoral artery as well as left popliteal and anterior tibial arteries. Stent was placed. Due to the complicated lesion, there is a possibility that this patient may eventually need a left BKA. This morning, no new complaints. OBJECTIVE: VITAL SIGNS: Blood pressure is 135/62, heart rate 87, respiratory rate 18, temperature 99.5, and O2 saturation 97%. GENERAL: The patient is awake, alert, comfortable, not in overt distress. SKIN: Adequate turgor. HEENT: Slightly pale conjunctivae. Anicteric sclerae. No neck mass. No carotid bruits. No JVD. CHEST: No deformities. LUNGS: Clear breath sounds. HEART: Normal sinus rhythm. No murmurs, gallops, or rubs. ABDOMEN: Globular, soft, nontender. No masses. EXTREMITIES: Status post right AKA. Left foot trace edema. MEDICATIONS: Medications of April 18, 2020, reviewed. LABORATORY DATA: Laboratories of April 17, 2020; white count 6.4, hemoglobin 8.8. Sodium 137, potassium 3.9, chloride 96, carbon dioxide 29, BUN 36, creatinine 6.85, and calcium 7.3. ASSESSMENT AND PLAN: 1. End-stage renal disease, stable. We will continue current Wednesday, Wednesday, and Wednesday dialysis regimen. Fluid removal only as tolerated. 2. Anemia, currently on weekly Epogen. 3. Peripheral vascular disease - status post arteriogram and angioplasty of left lower leg vessels. Surgery is following. Continue supportive care. 4. Recheck CBC and basic metabolic profile in a.m. Job ID: [id number]
[2020-04-18] MEDS: Heparin 5,000 UNITS/ML VIAL SC SCH ×3 (09:58→21:40)
[2020-04-18] MEDS: Lisinopril 10 MG TAB PO SCH (09:58)
[2020-04-18] MEDS: Aspirin 81 mg Enteric Coated Tablet PO SCH (09:59)
[2020-04-18] MEDS: hydrALAZINE 25 MG TAB PO SCH ×3 (09:59→21:41)
[2020-04-18] MEDS: Metoprolol Tartrate 25 MG TAB PO SCH ×2 (10:09→21:42)
[2020-04-18] MEDS: Metoprolol Tartrate 5 MG/5 ML VIAL IVP SCH ×2 (10:12→21:34)
[2020-04-18 10:38] LABS: #Monocytes 0.8 thou/uL (0.11-0.59); #Neutrophils 4.8 thou/uL (1.40-6.50); %Eosinophils 0.7 % (0.0-10.0); %Lymphocytes 14.6 % (21.0-51.0); %Monocytes 12.1 % (0.0-10.0); %Neutrophils 72.6 % (42.0-75.0); Hemoglobin 9.5 g/dL (12.0-16.0); Mean Corpuscular HGB CONC 32.3 g/dL (32.0-36.0); Mean Corpuscular Hemoglobin 31.4 pg (27.0-31.0); Mean Corpuscular Volume 97.2 fL (78.0-98.0); Mean Platelet Volume 7.4 fL (7.4-10.4); Platelet Count 211 thou/uL (130-400); RBC Distribution Width 13.5 % (11.5-14.5); Red Blood Cell (RBC) Count 3.02 mill/uL (4.20-5.40); White Blood Cell (WBC) Count 6.6 thou/uL (4.8-10.8)
--- NOTE | 2020-04-18 11:21 | RAD ---
PORTABLE CHEST: DATE: 04/18/2020. PROVIDED CLINICAL HISTORY: Fever. FINDINGS: Comparison 04/15/2020. The cardiac silhouette appears unchanged. Development of right suprahilar opa city could reflect pneumonia. Evaluation is limited by patient body habitus. Poor visualization of the left hemidiaphragm is likely on the basis of superimposition of tissues. No pleural fluid or pne umothorax definitely evident. IMPRESSION: Development of right suprahilar opacity that could reflect pneumonia. Followup is recommended. POS: AH
--- NOTE | 2020-04-18 11:49 | PDOC.HOSPP ---
- Subjective Encounter Date: 04/18/20 Subjective: Patient is moaning, holding her abdomen. Shakes her head to confirm she has abd pain. She has been vomiting again. - Objective Vital Signs & Weight: Vital Signs (12 hours) Temp Pulse Resp BP Pulse Ox 04/18/20 11:28 152/77 H 04/18/20 11:18 99.2 F 108 H 22 H 219/93 H 99 04/18/20 08:25 97 04/18/20 07:45 99.5 F 87 18 135/62 97 04/18/20 03:50 102.3 F H 92 20 131/62 94 L Weight Admit Weight 174 lb 4.8 oz Weight 165 lb 5.547 oz I&O: 04/17/20 04/18/20 04/19/20 06:59 06:59 06:59 Intake Total 240 520 Output Total 2100 2500 100 Balance -1860 -1980 -100 Result Diagrams: 04/18/20 10:27 04/17/20 04:12 Additional Labs: Accuchecks 04/18/20 04/18/20 04/17/20 11:31 06:07 20:32 POC Glucose 176 H 164 H 170 H 04/17/20 16:30 POC Glucose 115 H Hospitalist ROS - Medication Medications: Active Medications Generic Name Dose Route Start Last Admin Trade Name Freq PRN Reason Stop Dose Admin Hydrocodone Bitart/Acetaminophen 2 tab 04/15/20 20:11 04/18/20 11:20 [place] 5/325 PO 2 tab Q4H PRN Administration Severe Pain (7-10) Aspirin 81 mg 04/16/20 09:00 04/18/20 09:59 Ecotrin PO 81 mg DAILY JONATHAN Administration Epoetin Marcelo-epbx 7,500 unit 04/16/20 08:15 04/16/20 12:33 Retacrit SC 7,500 unit Q7D JONATHAN Administration Ferrous Sulfate 325 mg 04/16/20 08:00 04/18/20 07:46 Feosol PO 325 mg TID-WM JONATHAN Administration Heparin Sodium (Porcine) 5,000 units 04/17/20 21:00 04/18/20 09:58 Heparin SC 5,000 units TID JONATHAN Administration Hydralazine HCl 50 mg 04/15/20 21:00 04/18/20 09:59 Apresoline PO 50 mg TID JONATHAN Administration Insulin Glargine 10 units/ 0.1 mls @ 0 mls/hr 04/15/20 21:00 04/17/20 22:05 Miscellaneous Medication SC Not Given HS JONATHAN Vancomycin HCl 750 mg/ Sodium 250 mls @ 250 mls/hr 04/15/20 22:15 04/17/20 11 :40 Chloride IVPB 250 mls WILLCALL JONATHAN Administration Cefepime HCl 0.5 gm/ Sodium 100 mls @ 200 mls/hr 04/16/20 21:00 04/17/20 21: 22 Chloride IVPB 100 mls Q24HR@2100 JONATHAN Administration Isosorbide Mononitrate 15 mg 04/16/20 09:00 04/18/20 09:58 Imdur Er PO 15 mg DAILY JONATHAN Administration Lisinopril 10 mg 04/16/20 09:00 04/18/20 09:58 Zestril PO 10 mg DAILY JONATHAN Administration Metoprolol Tartrate 25 mg 04/15/20 21:00 04/18/20 10:09 Lopressor PO 25 mg BID [facility] Administration Metoprolol Tartrate 5 mg 04/17/20 09:00 04/18/20 10:12 Lopressor IVP Not Given BID [facility] Ondansetron HCl 4 mg 04/15/20 20:11 04/18/20 11:11 Zofran IVP 4 mg Q6H PRN Administration Nausea/Vomiting Sevelamer Carbonate 2,400 mg 04/16/20 08:00 04/18/20 07:45 Renvela PO 2,400 mg TID-WM JONATHAN Administration - Exam General Appearance: ill appearing General - other findings: Moaning. Emesis bag with content. Heart: RRR, no murmur, no gallops, no rubs, normal peripheral pulses Respiratory: CTAB, no wheezes, no rales, no ronchi, normal chest expansion, no tachypnea, normal percussion Gastrointestinal: tender to palpation, distended Gastrointestinal - other findings: Bowel sounds present. Extremities: no cyanosis, no clubbing Extremities - other findings: Left foot looks improved. 4th toe still cyanotic , but better. Skin: normal turgor Musculoskeletal: generalized weakness Hosp A/P (1) Ischemic toe Code(s): I99.8 - OTHER DISORDER OF CIRCULATORY SYSTEM Status: Acute (2) ESRD (end stage renal disease) on dialysis Code(s): N18.6 - END STAGE RENAL DISEASE; Z99.2 - DEPENDENCE ON RENAL DIALYSIS Status: Acute (3) Cellulitis Code(s): L03.90 - CELLULITIS, UNSPECIFIED Status: Acute (4) Hyperkalemia Code(s): E87.5 - HYPERKALEMIA Status: Acute (5) Nausea & vomiting Code(s): R11.2 - NAUSEA WITH VOMITING, UNSPECIFIED Status: Acute (6) Chronic anemia Code(s): D64.9 - ANEMIA, UNSPECIFIED Status: Chronic (7) DM type 2 (diabetes mellitus, type 2) Status: Chronic Qualifiers: Diabetes mellitus complication status: with kidney complications Diabetes mellitus complication detail: with chronic kidney disease Chronic kidney disease stage: on chronic dialysis (8) HTN (hypertension) Code(s): I10 - ESSENTIAL (PRIMARY) HYPERTENSION Status: Chronic Qualifiers: (9) Peripheral artery disease Code(s): I73.9 - PERIPHERAL VASCULAR DISEASE, UNSPECIFIED Status: Chronic (10) Abdominal pain Code(s): R10.9 - UNSPECIFIED ABDOMINAL PAIN Status: Acute Qualifiers: Abdominal location: lower abdomen, unspecified Qualified Code(s): R10.30 - Lower abdominal pain, unspecified - Plan Abdominal Pain: Distended and generally tender. Vomiting. CT abd/pelvis without contrast given her vomiting. WBC is still normal, but she remains very febrile. Difficult to attribute that to the foot. NGT. Pneumonia: CXR with evidence of right perihilar infiltrate. May be some aspiration. Still on Vanc and Cefepime, but still febrile. Discussed with Dr. Snider. He will see her today. Left fourth toe infarct: Left fourth toe is ischemic. Dr. Sepulveda consulted, performed angioplasty and stenting to the vasculature of the left lower extremity today. Tolerated well. She is currently empirically on antibiotics for possible infection of the area. It is unclear if that is the case or if this is purely just ischemic. We will continue to monitor after this procedure is see if we can promote some healing. ESRD: Nephrology following. Continue HD. Change her Lovenox to heparin 3 times daily. Initiate renal diet. DM: Fair control. No change. HTN: Stable. Hyperkalemia: Mild. Secondary to the ESRD. N/V: Resolved, the she resumed a diet yesterday. No she has abd pain and vomiting again.
[2020-04-18] MEDS: HumaLOG 300 UNITS/3 ML VIAL SC PRN (12:15)
--- NOTE | 2020-04-18 13:18 | CT ---
CT abdomen and pelvis noncontrast HISTORY: Flank pain. COMPARISON: 04/16/2018. FINDINGS: Each renal collecting system, ureter, and urinary bladder are decompressed. No stones are a pparent. Calcification at the central portion of each kidney is favored to be vascular in origin. Some residual contrast material is present within the urinary collecting system, including urinary bl adder. Source of this contrast is not evident. Very subtle groundglass parenchymal opacity involves the left lateral lung base. Mild parenchymal sca rring at the left posterior lung base. Gallbladder is distended up to 11.2 cm without wall thickening or adjacent inflammation. There is trey cification within the arterial structures. Lack of contrast limits evaluation for other abnormalities. No evidence of bowel obstruction or infla mmation. IMPRESSION : No CT evidence of urinary tract obstruction or calcification. Gallbladder distention is nonspecific in the absence of other biliary abnormalities. Clinical correla tion and other signs and symptoms of gallbladder/biliary abnormality is required. Atherosclerosis.
--- NOTE | 2020-04-18 17:48 | ULT ---
US Gallbladder RUQ History: Abdominal pain and gallbladder distention Comparison: Reference is made to CT exam same day Findings: Real-time grayscale and color evaluation right upper quadrant of the abdomen was performed. Hepatic echotexture is mildly increased. No mass. The gallbladder is distended measuring nearly 12 cm in length. Wall thickness is just over 3 mm. No significant pericholecystic fluid. No cholelithiasis. Common bile duct is normal measuring 4 mm. Portal vein is patent with antegrade flow. Right kidney is small measuring 8.1 x 4.3 x 4.3 cm. Sonographic Tim sign is positive. Impression: Markedly distended gallbladder with wall thickening and positive Tim's sign although w ithout stones can be seen with acalculous cholecystitis. Surgical consultation advised.
--- NOTE | 2020-04-18 17:56 | PDOC.EVN ---
Event Note - Event Note Event Note: Patient CT scan of the abdomen today revealed a very distended gallbladder. There is no evidence of stones. Subsequent ultrasound reveals very distended gallbladder with no stones but a positive Tim sign concerning for an acalculous cholecystitis. Given her abdominal pain, vomiting, fever with lack of evidence of significant cellulitic changes in the left foot concerning that this might be the source of her problem. I discussed the case with Dr. Gonzalez. He will come back and evaluate the patient again.
--- NOTE | 2020-04-18 19:24 | PRG ---
DATE OF SERVICE: 04/18/2020 SUBJECTIVE: Ms. Saldivar had MANAGER QUALITY IMPROVEMENT of her left superficial femoral artery and popliteal artery yesterday by Dr. Sepulveda. She had good results. She had a single-vessel runoff to the foot. The patient, however, has continued to have nausea and vomiting, has a fever to 102 degrees and complains of right upper quadrant upper abdominal pain. CAT scan of the abdomen and pelvis reveals inflammatory changes about the gallbladder and distended gallbladder. Ultrasound reveals no gallstones, but thickened gallbladder wall, positive sonographic Tim sign, and distended gallbladder. White count is 6 and hemoglobin 9.5. Last liver function tests were on 04/16. OBJECTIVE: LUNGS: Clear. CARDIAC: Regular rate and rhythm. ABDOMEN: Tender in right upper quadrant, slightly distended. EXTREMITIES: Unremarkable. ASSESSMENT AND PLAN: 1. Cholecystitis. Plan laparoscopic video cholecystectomy. We will plan this in the morning. 2. Ischemic toe, not the source of infection. Job ID: [id number]
[2020-04-18] MEDS: Cefepime 0.5 GM in Sodium Chloride 0.9% 100 ML IVPB SCH (21:28)
[2020-04-18] MEDS: Pantoprazole 40 MG VIAL IVP SCH (21:32)
[2020-04-18] MEDS: Insulin Glargine 10 UNITS in Pre-Filled Syringe 1 EACH SC SCH (21:41)
[2020-04-19] MEDS: Ondansetron PF 4 MG/2 ML Vial IVP PRN ×3 (01:10→14:30)
[2020-04-19] MEDS: Morphine 2 MG/ML VIAL SLOW IVP PRN ×3 (01:11→13:42)
[2020-04-19 05:03] LABS: #Basophils 0.2 thou/uL (0.0-0.2); #Eosinphils 0.1 thou/uL (0.0-0.7); #Lymphocytes 1.3 thou/uL (1.20-3.40); #Neutrophils 5.7 thou/uL (1.40-6.50); %Basophils 1.8 % (0.0-1.0); %Eosinophils 0.6 % (0.0-10.0); %Lymphocytes 15.9 % (21.0-51.0); %Monocytes 12.4 % (0.0-10.0); %Neutrophils 69.2 % (42.0-75.0); Hemoglobin 9.3 g/dL (12.0-16.0); Mean Corpuscular HGB CONC 31.9 g/dL (32.0-36.0); Mean Corpuscular Hemoglobin 30.6 pg (27.0-31.0); Mean Corpuscular Volume 95.8 fL (78.0-98.0); Mean Platelet Volume 7.6 fL (7.4-10.4); Platelet Count 235 thou/uL (130-400); RBC Distribution Width 13.5 % (11.5-14.5); Red Blood Cell (RBC) Count 3.05 mill/uL (4.20-5.40); White Blood Cell (WBC) Count 8.2 thou/uL (4.8-10.8)
[2020-04-19 05:17] LABS: Anion Gap 20 mmol/L (10-20); BUN (Urea Nitrogen) 37 mg/dL (9.8-20.1); Calc. Creatinine Clearance 9 mL/min (70-130); Calcium 7.3 mg/dL (7.8-10.44); Carbon Dioxide 23 mmol/L (23-31); Chloride 96 mmol/L (98-107); Estimated GFR-MDRD 5; Glucose 79 mg/dL (80-115); Potassium 4.4 mmol/L (3.5-5.1); Sodium 135 mmol/L (136-145)
[2020-04-19] MEDS: Promethazine HCl 25 MG in Sodium Chloride 0.9% 50 ML IVPB PRN (05:26)
[2020-04-19] MEDS: Pantoprazole 40 MG VIAL IVP SCH ×2 (08:49→21:29)
--- NOTE | 2020-04-19 09:25 | PRG ---
DATE OF SERVICE: 04/19/2020 SUBJECTIVE: Veronica Saldivar today is still encephalopathic. She has fevers to 102 to 101 [address] CAT scan reveals dilated gallbladder, thickened wall, inflammatory changes. Ultrasound reveals absence of stones, normal bile duct caliber, and acute cholecystitis with a positive sonographic Tim sign. The patient's white count is 8, hemoglobin 9.3. Her liver function tests repeat today are pending. Basic metabolic profile consistent with end-stage renal disease, on dialysis, potassium 4.4. The patient has a left arm dialysis graft that I performed a DRIL procedure in the past. She has had a right BKA. She has had a ANIMAL WARDEN of her SFA, popliteal artery by Dr. Sepulveda for ischemic rest pain in left foot and now is felt to have acute cholecystitis and need of urgent/emergent cholecystectomy. COVID testing has not been performed, but has been ordered. Emergent urgent operative intervention has been declined by Anesthesia awaiting COVID testing. Dr. Almonte will assume care of the patient and perform cholecystectomy in the next 24 hours from COVID testing is available. The patient's chest x-ray is unremarkable. Sodium 135, potassium 4.4, and chloride 96. OBJECTIVE: LUNGS: Clear to auscultation. CARDIAC: Regular rate and rhythm without murmur or gallop. ABDOMEN: Soft, obese, tenderness in right upper quadrant with guarding. Right BKA status. Left foot is warm after ANIMAL WARDEN of her SFA, popliteal artery. ASSESSMENT AND PLAN: Acute cholecystitis, acalculous. Possible gangrenous emergent intervention decline by Anesthesia. Hospital services pending COVID testing, which will take [address] Almonte will assume her care. We will continue antibiotics. Job ID: [id number]
[2020-04-19 09:32] LABS: ALT (SGPT) 8 U/L (8-55); AST (SGOT) 23 U/L (5-34); Albumin 3.5 g/dL (3.4-4.8); Alkaline Phosphatase 103 U/L (40-110); Anion Gap 21 mmol/L (10-20); BUN (Urea Nitrogen) 40 mg/dL (9.8-20.1); Bilirubin, Total 0.4 mg/dL (0.2-1.2); Calc. Creatinine Clearance 8 mL/min (70-130); Calcium 7.3 mg/dL (7.8-10.44); Carbon Dioxide 23 mmol/L (23-31); Chloride 97 mmol/L (98-107); Estimated GFR-MDRD 5; Globulin 4.2 g/dL (2.4-3.5); Glucose 71 mg/dL (80-115); Potassium 4.6 mmol/L (3.5-5.1); Protein, Total 7.7 g/dL (6.0-8.3); Sodium 136 mmol/L (136-145)
--- NOTE | 2020-04-19 09:33 | PRG ---
DATE OF SERVICE: SUBJECTIVE: Ms. Saldivar is a 59-year-old female with ESRD and followed up by the [facility] for her maintenance hemodialysis. In addition, the patient was admitted for left foot pain, ischemic - underwent angioplasty and stent placement with Dr. Sepulveda. However, she was noted to be having persistent abdominal pain. Dr. Gonzalez has evaluated the patient and think she may have underlying cholecystitis. The plan is for her to undergo a laparoscopic cholecystectomy. OBJECTIVE: VITAL SIGNS: Blood pressure 160/72, heart rate 82, respiratory rate 17, temperature 98.6, O2 sats 98%. GENERAL: The patient is awake, alert, in mild pain. SKIN: Adequate turgor. HEENT: Pinkish conjunctivae. Anicteric sclerae. No neck mass. No carotid bruits. No JVD. CHEST: No deformities. LUNGS: Clear breath sounds. No wheezing. No crackles. HEART: Normal sinus rhythm. No murmurs, no gallops, no rubs. ABDOMEN: Globular, soft. Positive for right upper quadrant tenderness. EXTREMITIES: Status post right AKA. Left leg, no edema. MEDICATIONS: Medications of April 19, 2020, were reviewed. LABORATORY DATA: Laboratories of April 19, 2020: White count 8.2, hemoglobin 9.3, sodium 135, potassium 4.4, chloride 96, carbon dioxide 23, BUN 37, creatinine 7.92, calcium 7.3. ASSESSMENT AND PLAN: 1. Acute cholecystitis-for planned laparoscopic cholecystectomy, Dr. Gonzalez following. 2. End-stage renal disease, stable. We will continue current 3 times a week hemodialysis. We will consider hemodialysis with this patient probably after surgery. 3. Left foot ischemia - stable, status post stent placement of the lower extremity blood vessels. 4. Agree with current management. Job ID: [id number]
[2020-04-19 09:58] LABS: HBSAg Index 0.14 S/CO (0-0.99); Hep B Surf Ag Non-Reactive S/CO (NonReactive)
[2020-04-19] MEDS: Heparin 5,000 UNITS/ML VIAL SC SCH ×3 (10:06→21:29)
[2020-04-19] MEDS: Sevelamer Carbonate 800 MG TAB PO SCH ×3 (10:07→16:44)
[2020-04-19] MEDS: Metoprolol Tartrate 5 MG/5 ML VIAL IVP SCH (10:08)
[2020-04-19] MEDS: Ferrous Sulfate 325 MG TAB PO SCH ×3 (10:08→16:44)
[2020-04-19 10:40] LABS: HBSAB Concentration 2521.19 mIU/mL; Hep B Surf AB Reactive (NonReactive)
--- NOTE | 2020-04-19 12:21 | PDOC.HOSPP ---
- Subjective Encounter Date: 04/19/20 Subjective: Patient continues to have abdominal pain with some nausea and vomiting. - Objective Vital Signs & Weight: Vital Signs (12 hours) Temp Pulse Resp BP Pulse Ox 04/19/20 08:00 98 04/19/20 07:47 98.6 F 82 17 160/72 H 98 04/19/20 04:00 99.9 F H 82 20 148/67 H 96 Weight Admit Weight 174 lb 4.8 oz Weight 166 lb 10.711 oz I&O: 04/18/20 04/19/20 04/20/20 06:59 06:59 06:59 Intake Total 520 120 Output Total 2500 200 -1979 Result Diagrams: 04/19/20 04:29 04/19/20 08:59 Additional Labs: Accuchecks 04/19/20 04/19/20 04/18/20 11:20 05:16 19:55 POC Glucose 83 87 138 H 04/18/20 16:56 POC Glucose 123 H Hospitalist ROS - Medication Medications: Active Medications Generic Name Dose Route Start Last Admin Trade Name Freq PRN Reason Stop Dose Admin Acetaminophen 650 mg 04/15/20 20:11 04/19/20 01:05 Tylenol [place] 650 mg Q4H PRN Administration Headache/Fever/Mild Pain (1-3) Hydrocodone Bitart/Acetaminophen 2 tab 04/15/20 20:11 04/18/20 04:02 [place] 5/325 PO 2 tab Q4H PRN Administration Severe Pain (7-10) Aspirin 81 mg 04/16/20 09:00 04/18/20 09:59 Ecotrin PO 81 mg DAILY [facility] Administration Epoetin Marcelo-epbx 7,500 unit 04/16/20 08:15 04/16/20 12:33 Retacrit SC 7,500 unit Q7D [facility] Administration Ferrous Sulfate 325 mg 04/16/20 08:00 04/19/20 10:08 Feosol PO Not Given TID-[facility] [place] Heparin Sodium (Porcine) 5,000 units 04/17/20 21:00 04/19/20 10:06 Heparin SC Not Given TID [facility] Hydralazine HCl 50 mg 04/15/20 21:00 04/18/20 21:41 Apresoline PO Not Given TID [facility] Insulin Glargine 10 units/ 0.1 mls @ 0 mls/hr 04/15/20 21:00 04/18/20 21:41 Miscellaneous Medication SC Not Given HS [facility] Vancomycin HCl 750 mg/ Sodium 250 mls @ 250 mls/hr 04/15/20 22:15 04/17/20 11 :40 Chloride IVPB 250 mls WILLCALL JONATHAN Administration Cefepime HCl 0.5 gm/ Sodium 100 mls @ 200 mls/hr 04/16/20 21:00 04/18/20 21: 28 Chloride IVPB 100 mls Q24HR@2100 JONATHAN Administration Promethazine HCl 25 mg/ Sodium 51 mls @ 204 mls/hr 04/19/20 04:32 04/19/20 05 :26 Chloride IVPB 51 mls Q6H PRN Administration Nausea Insulin Human Lispro 0 units 04/15/20 20:17 04/18/20 12:15 Humalog SC 2 unit .MILD SLIDING SCALE PRN Administration Mild Correctional Scale Isosorbide Mononitrate 15 mg 04/16/20 09:00 04/18/20 09:58 Imdur Er PO 15 mg DAILY [facility] Administration Lisinopril 10 mg 04/16/20 09:00 04/18/20 09:58 Zestril PO 10 mg DAILY [facility] Administration Metoprolol Tartrate 25 mg 04/15/20 21:00 04/18/20 21:42 Lopressor PO Not Given BID [facility] Metoprolol Tartrate 5 mg 04/17/20 09:00 04/19/20 10:08 Lopressor IVP Not Given BID [facility] Morphine Sulfate 2 mg 04/18/20 11:47 04/19/20 08:49 Morphine Sulfate SLOW IVP 2 mg Q4H PRN Administration Moderate to Severe Pain (6-10) Ondansetron HCl 4 mg 04/15/20 20:11 04/19/20 08:49 Zofran IVP 4 mg Q6H PRN Administration Nausea/Vomiting Pantoprazole Sodium 40 mg 04/18/20 21:00 04/19/20 08:49 Protonix IVP 40 mg Q12HR [facility] Administration Sevelamer Carbonate 2,400 mg 04/16/20 08:00 04/19/20 10:07 Renvela PO Not Given TID-WM JONATHAN - Exam General Appearance: awake alert, ill appearing Heart: RRR, no murmur, no gallops, no rubs, normal peripheral pulses Respiratory: no wheezes, rales (Scattered, bilateral) Gastrointestinal: soft, non-tender, non-distended, normal bowel sounds, no palpable masses, no hepatomegaly, no splenomegaly, no bruit Extremities: no cyanosis, no clubbing Extremities - other findings: Left fourth toe remains very dark. No cellulitic changes. Musculoskeletal: generalized weakness Psychiatric - other findings: Patient appears uncomfortable. She rarely speaks. Grimaces frequently. Hosp A/P (1) Ischemic toe Code(s): I99.8 - OTHER DISORDER OF CIRCULATORY SYSTEM Status: Acute (2) ESRD (end stage renal disease) on dialysis Code(s): N18.6 - END STAGE RENAL DISEASE; Z99.2 - DEPENDENCE ON RENAL DIALYSIS Status: Acute (3) Cellulitis Code(s): L03.90 - CELLULITIS, UNSPECIFIED Status: Acute (4) Hyperkalemia Code(s): E87.5 - HYPERKALEMIA Status: Acute (5) Nausea & vomiting Code(s): R11.2 - NAUSEA WITH VOMITING, UNSPECIFIED Status: Acute (6) Chronic anemia Code(s): D64.9 - ANEMIA, UNSPECIFIED Status: Chronic (7) DM type 2 (diabetes mellitus, type 2) Status: Chronic Qualifiers: Diabetes mellitus complication status: with kidney complications Diabetes mellitus complication detail: with chronic kidney disease Chronic kidney disease stage: on chronic dialysis (8) HTN (hypertension) Code(s): I10 - ESSENTIAL (PRIMARY) HYPERTENSION Status: Chronic Qualifiers: (9) Peripheral artery disease Code(s): I73.9 - PERIPHERAL VASCULAR DISEASE, UNSPECIFIED Status: Chronic (10) Acute acalculous cholecystitis Code(s): K81.0 - ACUTE CHOLECYSTITIS Status: Acute - Plan Left fourth toe infarct: Left fourth toe is ischemic. Dr. Sepulveda consulted, performed angioplasty and stenting to the vasculature of the left lower extremity today. Tolerated well. Does not appear to have any significant infection in this area. Will allow the toe to progress naturally. Acute acalculous cholecystitis: Patient has abdominal pain and some vomiting. She has had normal liver enzymes on admission. CT of the abdomen revealed a substantially distended gallbladder. Ultrasound confirmed evidence of acute acalculous cholecystitis. Surgery has reevaluated the patient and the plan is for cholecystectomy. Currently the delay is for COVID screening prior to the procedure. She remains on broad-spectrum antibiotics. She continues to be symptomatic with pain and vomiting. ESRD: Nephrology following. Continue HD. Change her Lovenox to heparin 3 times daily. Initiate renal diet. DM: Fair control. No change. HTN: Stable. Hyperkalemia: Mild. Secondary to the ESRD. N/V: Resolved.
[2020-04-19] MEDS: Aspirin 81 mg Enteric Coated Tablet PO SCH (13:40)
[2020-04-19] MEDS: Metoprolol Tartrate 25 MG TAB PO SCH ×2 (13:41→21:29)
[2020-04-19] MEDS: hydrALAZINE 25 MG TAB PO SCH ×3 (13:41→21:33)
[2020-04-19] MEDS: Lisinopril 10 MG TAB PO SCH (13:41)
--- NOTE | 2020-04-19 16:25 | CON ---
DATE OF CONSULTATION: 04/19/2020 REASON FOR CONSULTATION: Peripheral vascular disease and necrosis of right fourth toe. HISTORY OF PRESENT ILLNESS: A 59-year-old with history of type 2 diabetes; end-stage renal disease, on hemodialysis through a left upper extremity AV fistula; peripheral vascular disease; prior right above-knee amputation, who presented to the emergency room with left foot pain and evidence of gangrene of the fourth toe left side. Initial findings, BP 180/82, temperature 98.6, O2 saturation 100%. There was evidence of gangrene of the left fourth toe. She was admitted on 04/15 and on April 17, Dr. Sepulveda performed a left lower extremity arteriogram and angioplasty of left SFA and left popliteal/left anterior tibial artery. On 04/18, she had a CT of abdomen, which showed a very distended gallbladder and Surgery was consulted and apparently plan for cholecystectomy is set. She has had negative COVID serology reportedly, although I do not see it here in the record. Currently, Ms. Saldivar is quite drowsy. She will wake up a bit to answer simple questions. She is oriented to time, self, and place. Falls asleep right away. Moderate pain in the left foot. No headaches. No dyspnea or cough. She has a right upper quadrant abdominal tenderness. No significant urine output. PAST MEDICAL HISTORY: Type 2 diabetes, end-stage renal disease, hemodialysis, left AV fistula, prior right BKA, peripheral vascular disease, hypertension, and dialysis access placements. ALLERGIES: NONE. FAMILY HISTORY: Diabetes type 2. CURRENT MEDICATIONS: 1. Tylenol. 2. [place]. 3. Ecotrin. 4. Cefepime. 5. Feosol. 6. Vancomycin. 7. Sliding scale. PHYSICAL EXAMINATION: VITAL SIGNS: T-max 102.3 on 04/18, now she is 100.9; BP 150/50; pulse 98; respirations 16; and O2 saturation 100%. SKIN: Shows a necrotic left fourth toe. AV fistula access left upper extremity. LYMPHATIC: No lymphadenopathy. HEENT: Sclerae are white. Pupils are 2 mm, somewhat asymmetric. Conjunctival areas are pale. Oral cavity with no venetie ira teeth remaining. NECK: Supple. LUNGS: Symmetric breath sounds. A few rhonchi on the right side. HEART: S1 and S2 with a soft aortic murmur. No S3. Regular rate. ABDOMEN: Moderately distended. Tenderness on palpation of the right upper quadrant. No bladder distention. EXTREMITIES: No joint inflammatory activity outside the area of involvement. I could not feel any dorsalis pedis, faintly palpable left popliteal pulses. NEUROLOGIC: She is very drowsy, arousable, but falls asleep immediately when stimulation ceases. LABORATORY DATA: White cell count 8.2, hemoglobin 9.3, platelets 235, 69% neutrophils, 15% lymphocytes. Sodium 136, creatinine 8.42. Liver profile normal. Albumin 3.5. Two sets of blood culture, no growth from April 15. Abdomen and pelvis CT from 04/18 with gallbladder distention. Abdominal ultrasound with a markedly distended gallbladder wall thickening present. Positive Tim sign. No stones. ASSESSMENT: Type 2 diabetes, end-stage renal disease, peripheral vascular disease, prior right below-knee amputation, gangrene fourth toe left foot inflammatory changes, possible acalculous cholecystitis. DISCUSSION: The patient has had revascularization and still have intermittent temperature elevation, which could be either secondary to the left foot changes or acalculous cholecystitis. The margin at the left fourth toe is yet developing. Hopefully, we can skip amputation and let it resolve with the usual natural process of managing margination and exclusion of the not viable tissue. I do not see if there is progression of inflammatory changes towards the midfoot at this point in time. We will transition her to piperacillin/tazobactam and adjusted for renal function, which will give us better anaerobic coverage. Job ID: [id number]
[2020-04-19] MEDS: Acetaminophen 325 MG TAB PO PRN (19:32)
[2020-04-19] MEDS: Piperacillin/Tazobactam 2.25 GM in Sodium Chloride 0.9% 100 ML IVPB SCH (21:29)
[2020-04-19] MEDS: Insulin Glargine 10 UNITS in Pre-Filled Syringe 1 EACH SC SCH (21:30)
[2020-04-20] MEDS: Metoprolol Tartrate 25 MG TAB PO SCH ×2 (05:23→21:04)
[2020-04-20] MEDS: Piperacillin/Tazobactam 2.25 GM in Sodium Chloride 0.9% 100 ML IVPB SCH ×3 (05:23→21:05)
[2020-04-20] MEDS: Pantoprazole 40 MG VIAL IVP SCH ×2 (08:50→21:04)
[2020-04-20 12:21] LABS: SARS-CoV-2 MS2 Positive; SARS-CoV-2 N Gene Positive; SARS-CoV-2 S Gene Positive; SARS-CoV-2 orf1ab Positive
[2020-04-20] MEDS: Heparin 5,000 UNITS/ML VIAL SC SCH ×3 (12:40→21:05)
[2020-04-20] MEDS: Sevelamer Carbonate 800 MG TAB PO SCH ×2 (12:40→16:47)
[2020-04-20] MEDS: Aspirin 81 mg Enteric Coated Tablet PO SCH (12:40)
[2020-04-20] MEDS: Ferrous Sulfate 325 MG TAB PO SCH ×2 (12:40→16:47)
[2020-04-20] MEDS: hydrALAZINE 25 MG TAB PO SCH ×3 (12:41→21:04)
[2020-04-20] MEDS: Lisinopril 10 MG TAB PO SCH (12:41)
[2020-04-20] MEDS ORDERED: EPHEDRINE 25 MG/5 ML SYRINGE ONE (13:45)
[2020-04-20] MEDS ORDERED: Ondansetron PF 4 MG/2 ML Vial ONE (13:45)
[2020-04-20] MEDS ORDERED: Glycopyrrolate 0.2 MG/ML 5 ML SYRINGE ONE (13:45)
[2020-04-20] MEDS ORDERED: Lidocaine 1% PF 5 ML VIAL ONE (13:45)
[2020-04-20] MEDS ORDERED: PROPOFOL 200 MG/20 ML VIAL ONE (13:45)
[2020-04-20] MEDS ORDERED: Dexamethasone 20 MG/5 ML VIAL ONE (13:45)
[2020-04-20] MEDS ORDERED: PHENYLEPHRINE-NS 100 MCG/ML 10 ML SYRINGE ONE (13:45)
[2020-04-20] MEDS ORDERED: Rocuronium Bromide 10 MG/ML (10ML VIAL) ONE (13:45)
[2020-04-20] MEDS: Morphine 2 MG/ML VIAL SLOW IVP PRN ×2 (14:55→21:05)
--- NOTE | 2020-04-20 15:02 | PDOC.HOSPP ---
- Subjective Encounter Date: 04/20/20 Subjective: She continues to have some abdominal pain and nausea. Still does not offer much verbal interaction. - Objective Vital Signs & Weight: Vital Signs (12 hours) Temp Pulse Resp BP Pulse Ox 04/20/20 14:42 73 04/20/20 14:15 73 20 139/57 L 98 04/20/20 12:41 72 04/20/20 11:44 99.5 F 72 22 H 143/60 H 97 04/20/20 08:00 99.2 F 71 18 135/62 96 04/20/20 04:00 99.2 F 60 20 135/61 96 Weight Admit Weight 174 lb 4.8 oz Weight 166 lb 10.711 oz I&O: 04/19/20 04/20/20 04/21/20 06:59 06:59 06:59 Intake Total 120 50 Output Total 200 2400 Balance -80 -2917 Result Diagrams: 04/19/20 04:29 04/19/20 08:59 Additional Labs: Accuchecks 04/20/20 04/19/20 04/19/20 06:03 20:28 16:34 POC Glucose 77 91 79 Hospitalist ROS - Medication Medications: Active Medications Generic Name Dose Route Start Last Admin Trade Name Freq PRN Reason Stop Dose Admin Acetaminophen 650 mg 04/15/20 20:11 04/19/20 19:32 Tylenol PO 650 mg Q4H PRN Administration Headache/Fever/Mild Pain (1-3) Acetaminophen 650 mg 04/15/20 20:11 04/19/20 01:05 Tylenol [place] 650 mg Q4H PRN Administration Headache/Fever/Mild Pain (1-3) Hydrocodone Bitart/Acetaminophen 2 tab 04/15/20 20:11 04/18/20 04:02 [place] 5/325 PO 2 tab Q4H PRN Administration Severe Pain (7-10) Aspirin 81 mg 04/16/20 09:00 04/20/20 12:40 Ecotrin PO Not Given DAILY [facility] Epoetin Marcelo-epbx 7,500 unit 04/16/20 08:15 04/16/20 12:33 Retacrit SC 7,500 unit Q7D JONATHAN Administration Ferrous Sulfate 325 mg 04/16/20 08:00 04/20/20 12:40 Feosol PO Not Given TID-[facility] Heparin Sodium (Porcine) 5,000 units 04/17/20 21:00 04/20/20 14:41 Heparin SC Not Given TID [facility] Hydralazine HCl 50 mg 04/15/20 21:00 04/20/20 14:42 Apresoline PO Not Given TID [facility] Insulin Glargine 10 units/ 0.1 mls @ 0 mls/hr 04/15/20 21:00 04/19/20 21:30 Miscellaneous Medication SC Not Given HS [facility] Promethazine HCl 25 mg/ Sodium 51 mls @ 204 mls/hr 04/19/20 04:32 04/19/20 05 :26 Chloride IVPB 51 mls Q6H PRN Administration Nausea Piperacillin Sod/Tazobactam 100 mls @ 200 mls/hr 04/19/20 22:00 04/20/20 14: 54 Sod 2.25 gm/ Sodium Chloride IVPB 100 mls Q8HR [facility] Administration Insulin Human Lispro 0 units 04/15/20 20:17 04/18/20 12:15 Humalog SC 2 unit .MILD SLIDING SCALE PRN Administration Mild Correctional Scale Isosorbide Mononitrate 15 mg 04/16/20 09:00 04/20/20 12:41 Imdur Er PO Not Given DAILY [facility] Lisinopril 10 mg 04/16/20 09:00 04/20/20 12:41 Zestril PO Not Given DAILY [facility] Metoprolol Tartrate 25 mg 04/15/20 21:00 04/20/20 05:23 Lopressor PO 25 mg BID [facility] Administration Morphine Sulfate 2 mg 04/18/20 11:47 04/20/20 14:55 Morphine Sulfate SLOW IVP 2 mg Q4H PRN Administration Moderate to Severe Pain (6-10) Ondansetron HCl 4 mg 04/15/20 20:11 04/19/20 14:30 Zofran IVP 4 mg Q6H PRN Administration Nausea/Vomiting Pantoprazole Sodium 40 mg 04/18/20 21:00 04/20/20 08:50 Protonix IVP 40 mg Q12HR [facility] Administration Sevelamer Carbonate 2,400 mg 04/16/20 08:00 04/20/20 12:40 Renvela PO Not Given TID-[facility] - Exam General Appearance: ill appearing Heart: RRR, no murmur, no gallops, no rubs, normal peripheral pulses Respiratory: CTAB, no wheezes, no rales, no ronchi, no tachypnea Respiratory - other findings: Difficult to get a good exam and she does not take real deep breaths. Gastrointestinal: tender to palpation, voluntary guarding Extremities: no cyanosis, no clubbing Extremities - other findings: Ischemic left fourth toe Skin: normal turgor Musculoskeletal: generalized weakness Psychiatric: lethargic Hosp A/P (1) Ischemic toe Code(s): I99.8 - OTHER DISORDER OF CIRCULATORY SYSTEM Status: Acute (2) ESRD (end stage renal disease) on dialysis Code(s): N18.6 - END STAGE RENAL DISEASE; Z99.2 - DEPENDENCE ON RENAL DIALYSIS Status: Acute (3) Cellulitis Code(s): L03.90 - CELLULITIS, UNSPECIFIED Status: Acute (4) Hyperkalemia Code(s): E87.5 - HYPERKALEMIA Status: Acute (5) Nausea & vomiting Code(s): R11.2 - NAUSEA WITH VOMITING, UNSPECIFIED Status: Acute (6) Chronic anemia Code(s): D64.9 - ANEMIA, UNSPECIFIED Status: Chronic (7) DM type 2 (diabetes mellitus, type 2) Status: Chronic Qualifiers: Diabetes mellitus complication status: with kidney complications Diabetes mellitus complication detail: with chronic kidney disease Chronic kidney disease stage: on chronic dialysis (8) HTN (hypertension) Code(s): I10 - ESSENTIAL (PRIMARY) HYPERTENSION Status: Chronic Qualifiers: (9) Peripheral artery disease Code(s): I73.9 - PERIPHERAL VASCULAR DISEASE, UNSPECIFIED Status: Chronic (10) Acute acalculous cholecystitis Code(s): K81.0 - ACUTE CHOLECYSTITIS Status: Acute - Plan Left fourth toe infarct: Left fourth toe is ischemic. Dr. Sepulveda consulted, performed angioplasty and stenting to the vasculature of the left lower extremity today. Tolerated well. Does not appear to have any significant infection in this area. Will allow the toe to progress naturally. May be a "COVID toe". COVID-19 infection: Patient had a COVID screen primarily for preop clearance. Patient's primary symptoms have been fever and GI related symptoms. She has a small patchy infiltrate on chest x-ray which is new since her admission chest x-ray. She has been fairly lethargic throughout her admission. According to Dr. Snider the patient had a negative test prior to her admission. I have made all of the consulting providers aware. Patient will be placed in isolation. Acute acalculous cholecystitis: Patient has abdominal pain and some vomiting. She has had normal liver enzymes on admission. CT of the abdomen revealed a substantially distended gallbladder. Ultrasound confirmed evidence of acute acalculous cholecystitis. Surgery has reevaluated the patient and the plan is for cholecystectomy. Currently the delay is for COVID screening prior to the procedure. She remains on broad-spectrum antibiotics. She continues to be symptomatic with pain and vomiting. Surgery will have to make a determination if this is an emergent procedure in order to get this done given her positive COVID screen. ESRD: Nephrology following. Continue HD. Change her Lovenox to heparin 3 times daily. Initiate renal diet. DM: Fair control. No change. HTN: Stable. Hyperkalemia: Mild. Secondary to the ESRD. N/V: Resolved.
[2020-04-20] MEDS ORDERED: Midazolam HCl 2 mg/2 ml Vial ONE (16:03)
[2020-04-20] MEDS ORDERED: Lidocaine 2% Jelly 5 ML TUBE ONE (16:03)
[2020-04-20] MEDS ORDERED: Fentanyl 100 MCG/2 ML VIAL ONE ×3 (16:03→18:00)
[2020-04-20] MEDS ORDERED: Iopamidol 0 ML ONE (16:11)
[2020-04-20] MEDS ORDERED: Lidocaine 1% w/Epinephrine 1:100K 20 ML VIAL ONE (16:11)
[2020-04-20] MEDS ORDERED: Bupivacaine 0.25% HCL 30 ML VIAL ONE (16:11)
[2020-04-20] MEDS ORDERED: SUGAMMADEX SODIUM 200 MG/2 ML VIAL ONE (16:54)
[2020-04-20] MEDS ORDERED: Promethazine HCl 25 MG/ML VIAL ONE (18:00)
[2020-04-20] MEDS ORDERED: Ondansetron HCl/PF 4 MG/2 ML Vial IVP PRN (18:23)
[2020-04-20] MEDS ORDERED: Promethazine HCl 25 MG/ML VIAL IM PRN (18:23)
[2020-04-20] MEDS ORDERED: Promethazine HCl 25 MG/ML VIAL SLOW IVP PRN (18:23)
[2020-04-20] MEDS: Insulin Glargine 10 UNITS in Pre-Filled Syringe 1 EACH SC SCH (21:04)
[2020-04-21] MEDS: HYDROcodone/Acetaminophen 5/325 mg Tablet PO PRN ×4 (00:02→20:32)
--- NOTE | 2020-04-21 01:14 | OP ---
DATE OF PROCEDURE: 04/20/2020 PREOPERATIVE DIAGNOSES: Acute cholecystitis, cholelithiasis, COVID-19 infection. POSTOPERATIVE DIAGNOSES: Acute cholecystitis, cholelithiasis, COVID-19 infection. PROCEDURE PERFORMED: Laparoscopic cholecystectomy. ANESTHESIA: General endotracheal. ESTIMATED BLOOD LOSS: 50 mL. FLUIDS GIVEN: 300 mL crystalloids. COUNTS: Sponge and instrument counts were verified as correct x2. COMPLICATIONS: None apparent at the time of operation. INDICATIONS FOR OPERATION: A 59-year-old woman with history of chronic renal disease, on dialysis, presented with recurrent epigastric right upper quadrant abdominal pain, associated with multiple episodes of nausea and emesis. Clinical and radiographic examination were consistent with acute cholecystitis, cholelithiasis, for which the patient was brought to the operating room for cholecystectomy. The patient was COVID positive, however, she has been slight sick with right upper quadrant pain, fever, and nausea. Decision was made therefore to bring the patient to the operating room for cholecystectomy. Findings are consistent with markedly distended gallbladder, which was ectatic in the usual anatomic location completely encased by omental adhesions. DESCRIPTION OF PROCEDURE: Informed consent was obtained from the patient, who was brought to the operating room and placed in supine position. Following general anesthesia, abdomen was sterilely prepped and draped in usual fashion. Skin below the umbilicus was infiltrated with 0.25% Marcaine with epinephrine. A small curvilinear infraumbilical incision was made using 11 scalpel. Umbilical stalk was grasped with Dana and elevated. Veress needle was inserted through the incision and placed in the peritoneal cavity, through which the abdomen was insufflated with 3.5 L of CO2 gas. Intraabdominal pressure was noted at 2 mmHg. Following abdominal insufflation, Veress needle was removed. A 5 mm trocar was introduced using a Visiport under laparoscopy. Laparoscopy confirmed proper placement of the port, no injuries to underlying structures. Additional laparoscopy revealed the right upper quadrant completely encased by omental adhesions obscuring the liver. Under direct laparoscopy, a 12 mm epigastric and two 5 mm right lateral subcostal ports were placed after the overlying skin was infiltrated with 0.25% Marcaine with epinephrine. Appropriate incision was made. The patient was placed in a reverse Trendelenburg position, rotated to her left. I introduced a [place] dissector with cautery. Using this, to take down the omental adhesions to expose the fundus of the distended gallbladder. I introduced a Prestige grasper through the right lateral subcostal port grasping the fundus of the gallbladder, which was markedly distended and short. We decided to decompress the gallbladder. To achieve this, the Endo suction catheter with cautery was used to open the gallbladder of the fundus, and excess black bile was evacuated. Prestige grasper was then applied to the fundus of the gallbladder, which was elevated cephalad. The omental adhesions were bluntly taken down from remainder of the gallbladder. A second Prestige grasper was introduced through the right medial subcostal port grasping the Dylan pouch, which was retracted laterally. The peritoneum of the gallbladder was opened at the gallbladder neck using a [place] dissector. The cystic duct and artery were individually dissected off from the surrounding structures. Critical view was obtained following the cystic duct into the common bile duct. At this juncture, the cystic artery was divided between clips, applying 2 clips proximally and 1 clip at the junction of the cystic artery and gallbladder. The cystic artery was also divided between clips in a similar fashion. The gallbladder itself was removed from the liver bed using cautery and delivered of the abdominal cavity using an EndoCatch. Operative site was copiously irrigated with saline solution. The clips remained in place. Finding, no other pathology. Laparoscopy was terminated. Fascia of the epigastric port was closed using 0 Vicryl suture and Endo Close device on the laparoscopy. The abdomen was desufflated. All ports and instruments were removed and accounted for. Skin incisions were closed using 4-0 Monocryl suture in subcuticular fashion. Dermabond was applied over incisional closure. The patient tolerated the operation without any apparent complication and was returned to recovery room in satisfactory condition. Job ID: [id number]
[2020-04-21] MEDS: Piperacillin/Tazobactam 2.25 GM in Sodium Chloride 0.9% 100 ML IVPB SCH ×3 (05:21→20:31)
[2020-04-21] MEDS: Morphine 2 MG/ML VIAL SLOW IVP PRN (05:21)
[2020-04-21 08:00] LABS: #Lymphocytes 0.9 thou/uL (1.20-3.40); #Monocytes 0.6 thou/uL (0.11-0.59); #Neutrophils 8.7 thou/uL (1.40-6.50); %Basophils 0.1 % (0.0-1.0); %Eosinophils 0.2 % (0.0-10.0); %Lymphocytes 9.2 % (21.0-51.0); %Neutrophils 84.6 % (42.0-75.0); Hemoglobin 8.8 g/dL (12.0-16.0); Mean Corpuscular HGB CONC 32.1 g/dL (32.0-36.0); Mean Corpuscular Hemoglobin 31.6 pg (27.0-31.0); Mean Corpuscular Volume 98.4 fL (78.0-98.0); Mean Platelet Volume 7.6 fL (7.4-10.4); Platelet Count 239 thou/uL (130-400); Red Blood Cell (RBC) Count 2.79 mill/uL (4.20-5.40); White Blood Cell (WBC) Count 10.3 thou/uL (4.8-10.8)
[2020-04-21 08:13] LABS: Anion Gap 26 mmol/L (10-20); BUN (Urea Nitrogen) 47 mg/dL (9.8-20.1); Calc. Creatinine Clearance 8 mL/min (70-130); Calcium 6.8 mg/dL (7.8-10.44); Carbon Dioxide 19 mmol/L (23-31); Chloride 101 mmol/L (98-107); Estimated GFR-MDRD 5; Glucose 174 mg/dL (80-115); Potassium 5.6 mmol/L (3.5-5.1); Sodium 140 mmol/L (136-145)
[2020-04-21] MEDS: Lisinopril 10 MG TAB PO SCH (08:13)
[2020-04-21] MEDS: Metoprolol Tartrate 25 MG TAB PO SCH ×2 (08:13→20:26)
[2020-04-21] MEDS: Aspirin 81 mg Enteric Coated Tablet PO SCH (08:14)
[2020-04-21] MEDS: Sevelamer Carbonate 800 MG TAB PO SCH ×3 (08:14→16:17)
[2020-04-21] MEDS: Heparin 5,000 UNITS/ML VIAL SC SCH ×3 (08:14→20:29)
[2020-04-21] MEDS: hydrALAZINE 25 MG TAB PO SCH ×3 (08:14→20:30)
[2020-04-21] MEDS: Ferrous Sulfate 325 MG TAB PO SCH ×3 (08:14→16:17)
[2020-04-21] MEDS: Pantoprazole 40 MG VIAL IVP SCH ×2 (08:16→20:27)
[2020-04-21] MEDS: HumaLOG 300 UNITS/3 ML VIAL SC PRN (12:51)
--- NOTE | 2020-04-21 13:30 | PDOC.HOSPP ---
- Subjective Encounter Date: 04/21/20 Subjective: Feeling generally better. She still has a little bit of abdominal pain. - Objective Vital Signs & Weight: Vital Signs (12 hours) Temp Pulse Resp BP Pulse Ox 04/21/20 13:25 75 16 105/61 98 04/21/20 08:30 98.2 F 75 18 137/67 95 04/21/20 08:25 95 04/21/20 04:40 98.1 F 74 18 123/55 L 98 Weight Admit Weight 174 lb 4.8 oz Weight 162 lb I&O: 04/20/20 04/21/20 04/22/20 06:59 06:59 06:59 Intake Total 50 290 Output Total 2400 Balance -2350 290 Result Diagrams: 04/21/20 07:50 04/21/20 07:50 Additional Labs: Accuchecks 04/21/20 04/20/20 05:32 21:21 POC Glucose 179 H 111 H Hospitalist ROS - Medication Medications: Active Medications Generic Name Dose Route Start Last Admin Trade Name Ilana PRN Reason Stop Dose Admin Acetaminophen 650 mg 04/15/20 20:11 04/19/20 19:32 Tylenol PO 650 mg Q4H PRN Administration Headache/Fever/Mild Pain (1-3) Acetaminophen 650 mg 04/15/20 20:11 04/19/20 01:05 Tylenol [place] 650 mg Q4H PRN Administration Headache/Fever/Mild Pain (1-3) Hydrocodone Bitart/Acetaminophen 1 tab 04/15/20 20:11 04/21/20 00:02 [place] 5/325 PO 1 tab Q4H PRN Administration Moderate Pain (4-6) Hydrocodone Bitart/Acetaminophen 2 tab 04/15/20 20:11 04/21/20 12:49 [place] 5/325 PO 2 tab Q4H PRN Administration Severe Pain (7-10) Aspirin 81 mg 04/16/20 09:00 04/21/20 08:14 Ecotrin PO 81 mg DAILY JONATHAN Administration Epoetin Marcelo-epbx 7,500 unit 04/16/20 08:15 04/16/20 12:33 Retacrit SC 7,500 unit Q7D JONATHAN Administration Ferrous Sulfate 325 mg 04/16/20 08:00 04/21/20 12:49 Feosol PO 325 mg TID-WM JONATHAN Administration Heparin Sodium (Porcine) 5,000 units 04/17/20 21:00 04/21/20 08:14 Heparin SC 5,000 units TID JONATHAN Administration Hydralazine HCl 50 mg 04/15/20 21:00 04/21/20 08:14 Apresoline PO 50 mg TID JONATHAN Administration Insulin Glargine 10 units/ 0.1 mls @ 0 mls/hr 04/15/20 21:00 04/20/20 21:04 Miscellaneous Medication SC Not Given HS JONATHAN Promethazine HCl 25 mg/ Sodium 51 mls @ 204 mls/hr 04/19/20 04:32 04/19/20 05 :26 Chloride IVPB 51 mls Q6H PRN Administration Nausea Piperacillin Sod/Tazobactam 100 mls @ 200 mls/hr 04/19/20 22:00 04/21/20 05: 21 Sod 2.25 gm/ Sodium Chloride IVPB 100 mls Q8HR JONATHAN Administration Insulin Human Lispro 0 units 04/15/20 20:17 04/21/20 12:51 Humalog SC 2 unit .MILD SLIDING SCALE PRN Administration Mild Correctional Scale Isosorbide Mononitrate 15 mg 04/16/20 09:00 04/21/20 08:13 Imdur Er PO 15 mg DAILY JONATHAN Administration Lisinopril 10 mg 04/16/20 09:00 04/21/20 08:13 Zestril PO 10 mg DAILY JONATHAN Administration Metoprolol Tartrate 25 mg 04/15/20 21:00 04/21/20 08:13 Lopressor PO 25 mg BID JONATHAN Administration Morphine Sulfate 2 mg 04/18/20 11:47 04/21/20 05:21 Morphine Sulfate SLOW IVP 2 mg Q4H PRN Administration Moderate to Severe Pain (6-10) Ondansetron HCl 4 mg 04/15/20 20:11 04/19/20 14:30 Zofran IVP 4 mg Q6H PRN Administration Nausea/Vomiting Pantoprazole Sodium 40 mg 04/18/20 21:00 04/21/20 08:16 Protonix IVP 40 mg Q12HR JONATHAN Administration Sevelamer Carbonate 2,400 mg 04/16/20 08:00 04/21/20 12:51 Renvela PO 2,400 mg TID-WM JONATHAN Administration - Exam General Appearance: NAD, awake alert Eye: PERRL, anicteric sclera Heart: RRR, no murmur, no gallops, no rubs, normal peripheral pulses Respiratory: CTAB, no wheezes, no rales, no ronchi, normal chest expansion, no tachypnea, normal percussion Gastrointestinal: soft, no palpable masses, tender to palpation (mild) Extremities: no cyanosis, no clubbing, no edema Extremities - other findings: Left 4th toe is black. No erythema. Skin: normal turgor Neurological: no focal deficits Musculoskeletal: generalized weakness Psychiatric: normal affect, normal behavior Psychiatric - other findings: Much more awake and interactive today. Hosp A/P (1) Ischemic toe Code(s): I99.8 - OTHER DISORDER OF CIRCULATORY SYSTEM Status: Acute (2) ESRD (end stage renal disease) on dialysis Code(s): N18.6 - END STAGE RENAL DISEASE; Z99.2 - DEPENDENCE ON RENAL DIALYSIS Status: Acute (3) Cellulitis Code(s): L03.90 - CELLULITIS, UNSPECIFIED Status: Acute (4) Hyperkalemia Code(s): E87.5 - HYPERKALEMIA Status: Acute (5) Nausea & vomiting Code(s): R11.2 - NAUSEA WITH VOMITING, UNSPECIFIED Status: Acute (6) Chronic anemia Code(s): D64.9 - ANEMIA, UNSPECIFIED Status: Chronic (7) DM type 2 (diabetes mellitus, type 2) Status: Chronic Qualifiers: Diabetes mellitus complication status: with kidney complications Diabetes mellitus complication detail: with chronic kidney disease Chronic kidney disease stage: on chronic dialysis (8) HTN (hypertension) Code(s): I10 - ESSENTIAL (PRIMARY) HYPERTENSION Status: Chronic Qualifiers: (9) Peripheral artery disease Code(s): I73.9 - PERIPHERAL VASCULAR DISEASE, UNSPECIFIED Status: Chronic (10) Acute acalculous cholecystitis Code(s): K81.0 - ACUTE CHOLECYSTITIS Status: Acute - Plan Left fourth toe infarct: Left fourth toe is ischemic. Dr. Sepulveda consulted, performed angioplasty and stenting to the vasculature of the left lower extremity today. Tolerated well. Does not appear to have any significant infection in this area. Will allow the toe to progress naturally. COVID-19 infection: Patient had a COVID screen primarily for preop clearance. Patient's primary symptoms have been fever and GI related symptoms. She has a small patchy infiltrate on chest x-ray which is new since her admission chest x-ray. She has been fairly lethargic throughout her admission. According to Dr. Snider the patient had a negative test prior to her admission. I have made all of the consulting providers aware. Patient will be placed in isolation. There is no indication for specific treatment at this time. Acute acalculous cholecystitis: S/P lap emmie on 04/20. Clears. Advance as tolerated. ESRD: Nephrology following. Continue HD. DM: Fair control. No change. HTN: Stable. Hyperkalemia: Mild. Secondary to the ESRD. N/V: Resolved. Disposition: Can discharge when she is able to take po's adequately.
[2020-04-21 13:37] LABS: ALT (SGPT) 17 U/L (8-55); AST (SGOT) 76 U/L (5-34); Albumin 3.2 g/dL (3.4-4.8); Alkaline Phosphatase 135 U/L (40-110); Bilirubin, Direct 0.2 mg/dL (0.1-0.3); Bilirubin, Total 0.3 mg/dL (0.2-1.2); Protein, Total 7.5 g/dL (6.0-8.3)
[2020-04-21] MEDS: Insulin Glargine 10 UNITS in Pre-Filled Syringe 1 EACH SC SCH (20:27)
--- NOTE | 2020-04-21 20:45 | PRG ---
DATE OF SERVICE: 04/21/2020 SUBJECTIVE: Ms. Saldivar is a 59-year-old woman with a history of chronic renal failure on dialysis. The patient is postop day #1, status post laparoscopic cholecystectomy. She is awake and alert this morning reporting decreasing abdominal pain. She denies any nausea or vomiting. OBJECTIVE: VITAL SIGNS: This morning include blood pressure 137/67, pulse 75, respiratory rate is 18, temperature 98.2 degrees Fahrenheit, oxygen saturation 95% on 1 L by nasal cannula oxygen. ABDOMEN: Soft. Incisions are intact, clean and dry with incisional tenderness present. She clearly has no peritoneal signs on examination. LABORATORY FINDINGS: 1. Today include CBC with 10,300 white blood cells, hemoglobin and hematocrit stable at 8.8 and 27.5 respectively. Platelet count is also stable at 239,000. 2. Metabolic profile includes sodium 140, potassium 5.6, chloride is 101, bicarb is 19, BUN is 47, creatinine is 8.47, glucose 174, total bilirubin is 0.2, AST and ALT 76 and 17 respectively. Total bilirubin is normal at 0.3. IMPRESSION: 1. Postop day #1, status post laparoscopic cholecystectomy, the patient is hemodynamically stable. 2. We will advance diet as tolerated. 3. Increase activity per Physical and Occupational therapy. Further medical management is deferred to the primary service. Job ID: [id number]
[2020-04-22] MEDS: Morphine 2 MG/ML VIAL SLOW IVP PRN (02:20)
[2020-04-22] MEDS: Piperacillin/Tazobactam 2.25 GM in Sodium Chloride 0.9% 100 ML IVPB SCH ×3 (04:53→21:08)
[2020-04-22 05:52] LABS: #Eosinphils 0.1 thou/uL (0.0-0.7); #Lymphocytes 1.8 thou/uL (1.20-3.40); #Monocytes 0.7 thou/uL (0.11-0.59); #Neutrophils 6.9 thou/uL (1.40-6.50); %Basophils 0.4 % (0.0-1.0); %Eosinophils 0.6 % (0.0-10.0); %Lymphocytes 18.6 % (21.0-51.0); %Monocytes 7.4 % (0.0-10.0); Hemoglobin 8.5 g/dL (12.0-16.0); Mean Corpuscular HGB CONC 31.9 g/dL (32.0-36.0); Mean Corpuscular Volume 97.1 fL (78.0-98.0); Mean Platelet Volume 7.9 fL (7.4-10.4); Platelet Count 261 thou/uL (130-400); Red Blood Cell (RBC) Count 2.73 mill/uL (4.20-5.40); White Blood Cell (WBC) Count 9.5 thou/uL (4.8-10.8)
[2020-04-22 06:18] LABS: ALT (SGPT) Less than 7 U/L (8-55); AST (SGOT) 50 U/L (5-34); Albumin 3.1 g/dL (3.4-4.8); Alkaline Phosphatase 120 U/L (40-110); Anion Gap 25 mmol/L (10-20); BUN (Urea Nitrogen) 55 mg/dL (9.8-20.1); Bilirubin, Total 0.3 mg/dL (0.2-1.2); Calc. Creatinine Clearance 7 mL/min (70-130); Calcium 6.2 mg/dL (7.8-10.44); Carbon Dioxide 21 mmol/L (23-31); Chloride 98 mmol/L (98-107); Estimated GFR-MDRD 4; Globulin 4.2 g/dL (2.4-3.5); Glucose 134 mg/dL (80-115); Potassium 4.5 mmol/L (3.5-5.1); Protein, Total 7.3 g/dL (6.0-8.3); Sodium 139 mmol/L (136-145)
--- NOTE | 2020-04-22 09:24 | PRG ---
DATE OF SERVICE: 04/22/2020 SERVICE: Renal Medicine. SUBJECTIVE: Ms. Saldivar is a 59-year-old female with ESRD - maintenance hemodialysis. She was initially admitted for left foot ischemia. She underwent arteriogram and angiogram with this. She had a stent placed on the left lower extremity blood vessels. In addition, she has undergone a laparoscopic cholecystectomy for her acute cholecystitis. During the initial workup, she was found to have COVID-19 positive serology. She is no isolated. She is undergoing hemodialysis with isolation. No acute events noted last night. OBJECTIVE: VITAL SIGNS: Blood pressure 100/60, heart rate 87, respiratory rate 20, temperature 98, and O2 saturation 94%. GENERAL: The patient is awake, lethargic, not in overt distress. SKIN: Adequate turgor. HEENT: She has slightly pale conjunctivae. Anicteric sclerae. NECK: No neck mass. No carotid bruits. No JVD. CHEST: No deformities. LUNGS: Clear breath sounds. No wheezing. No crackles. HEART: Normal sinus rhythm. No murmur. No gallops. No rubs. ABDOMEN: Globular, soft, and nontender. EXTREMITIES: Status post right BKA. Left leg, no edema. MEDICATIONS: Medications of April 22, 2020, were reviewed. LABORATORY DATA: Laboratories of April 22, 2020; white count 9.5, hemoglobin 8.5. Sodium 139, potassium 4.5, chloride 98, carbon dioxide 21, BUN 55, creatinine 9.65, glucose 134, AST 50, ALT less than 7, and albumin 3.1. ASSESSMENT AND PLAN: 1. COVID-19 infection - supportive care. Currently, on isolation. 2. End-stage renal disease, stable. We will continue 3 times a week hemodialysis regimen with fluid removal only as tolerated by the patient. 3. Anemia, currently on Epogen and iron supplementation. P.r.n. blood transfusion for hemoglobin less than 7. 4. Status post acute cholecystitis - the patient has undergone a laparoscopic cholecystectomy, is doing well. 5. Left foot ischemia, status post arteriogram with stent placement. Job ID: [id number]
[2020-04-22] MEDS: Aspirin 81 mg Enteric Coated Tablet PO SCH (12:00)
[2020-04-22] MEDS: Lisinopril 10 MG TAB PO SCH (12:00)
[2020-04-22] MEDS: hydrALAZINE 25 MG TAB PO SCH ×4 (12:01→21:30)
[2020-04-22] MEDS: Pantoprazole 40 MG VIAL IVP SCH ×2 (12:01→20:59)
[2020-04-22] MEDS: Heparin 5,000 UNITS/ML VIAL SC SCH ×3 (12:02→20:58)
[2020-04-22] MEDS: Sevelamer Carbonate 800 MG TAB PO SCH ×3 (12:03→17:16)
[2020-04-22] MEDS: Ferrous Sulfate 325 MG TAB PO SCH ×3 (12:03→17:16)
[2020-04-22] MEDS: Metoprolol Tartrate 25 MG TAB PO SCH ×2 (12:07→21:10)
--- NOTE | 2020-04-22 13:36 | PDOC.HOSPP ---
- Subjective Encounter Date: 04/22/20 Subjective: Continues to have a little bit of abdominal pain. Otherwise she reports she is doing generally well. She reports that at home she is primarily in a wheelchair but has the ability to transfer from there to the toilet into the bed. She lives with her and says he is generally very helpful to her. - Objective Vital Signs & Weight: Vital Signs (12 hours) Temp Pulse Resp BP Pulse Ox 04/22/20 09:05 97 04/22/20 09:00 98.3 F 76 18 95/53 L 93 L 04/22/20 04:00 98.0 F 87 20 100/60 94 L Weight Admit Weight 174 lb 4.8 oz Weight 162 lb I&O: 04/21/20 04/22/20 04/23/20 06:59 06:59 06:59 Intake Total 290 1830 Balance 290 1830 Result Diagrams: 04/22/20 05:30 04/22/20 05:30 Additional Labs: Accuchecks 04/22/20 04/22/20 04/21/20 12:55 05:02 20:46 POC Glucose 78 154 H 227 H 04/21/20 04/21/20 16:27 13:03 POC Glucose 174 H 185 H Hospitalist ROS - Medication Medications: Active Medications Generic Name Dose Route Start Last Admin Trade Name Quintenq PRN Reason Stop Dose Admin Acetaminophen 650 mg 04/15/20 20:11 04/19/20 19:32 Tylenol PO 650 mg Q4H PRN Administration Headache/Fever/Mild Pain (1-3) Acetaminophen 650 mg 04/15/20 20:11 04/19/20 01:05 Tylenol [place] 650 mg Q4H PRN Administration Headache/Fever/Mild Pain (1-3) Hydrocodone Bitart/Acetaminophen 1 tab 04/15/20 20:11 04/21/20 00:02 [place] 5/325 PO 1 tab Q4H PRN Administration Moderate Pain (4-6) Hydrocodone Bitart/Acetaminophen 2 tab 04/15/20 20:11 04/21/20 20:32 [place] 5/325 PO 2 tab Q4H PRN Administration Severe Pain (7-10) Aspirin 81 mg 04/16/20 09:00 04/22/20 12:00 Ecotrin PO 81 mg DAILY JONATHAN Administration Epoetin Marcelo-epbx 7,500 unit 04/16/20 08:15 04/16/20 12:33 Retacrit SC 7,500 unit Q7D [facility] Administration Ferrous Sulfate 325 mg 04/16/20 08:00 04/22/20 12:21 Feosol PO 325 mg TID-WM JONATHAN Administration Heparin Sodium (Porcine) 5,000 units 04/17/20 21:00 04/22/20 12:02 Heparin SC Not Given TID JONATHAN Hydralazine HCl 50 mg 04/15/20 21:00 04/22/20 12:01 Apresoline PO Not Given TID [facility] Insulin Glargine 10 units/ 0.1 mls @ 0 mls/hr 04/15/20 21:00 04/21/20 20:27 Miscellaneous Medication SC 0.1 mls HS JONATHAN Administration Promethazine HCl 25 mg/ Sodium 51 mls @ 204 mls/hr 04/19/20 04:32 04/19/20 05 :26 Chloride IVPB 51 mls Q6H PRN Administration Nausea Piperacillin Sod/Tazobactam 100 mls @ 200 mls/hr 04/19/20 22:00 04/22/20 04: 53 Sod 2.25 gm/ Sodium Chloride IVPB 100 mls Q8HR [facility] Administration Insulin Human Lispro 0 units 04/15/20 20:17 04/21/20 12:51 Humalog SC 2 unit .MILD SLIDING SCALE PRN Administration Mild Correctional Scale Isosorbide Mononitrate 15 mg 04/16/20 09:00 04/22/20 12:07 Imdur Er PO 15 mg DAILY [facility] Administration Lisinopril 10 mg 04/16/20 09:00 04/22/20 12:00 Zestril PO 10 mg DAILY [facility] Administration Metoprolol Tartrate 25 mg 04/15/20 21:00 04/22/20 12:07 Lopressor PO 25 mg BID [facility] Administration Morphine Sulfate 2 mg 04/18/20 11:47 04/22/20 02:20 Morphine Sulfate SLOW IVP 2 mg Q4H PRN Administration Moderate to Severe Pain (6-10) Ondansetron HCl 4 mg 04/15/20 20:11 04/19/20 14:30 Zofran IVP 4 mg Q6H PRN Administration Nausea/Vomiting Pantoprazole Sodium 40 mg 04/18/20 21:00 04/22/20 12:01 Protonix IVP Not Given Q12HR JONATHAN Sevelamer Carbonate 2,400 mg 04/16/20 08:00 04/22/20 12:07 Renvela PO 2,400 mg TID-WM JONATHAN Administration - Exam General Appearance: NAD, awake alert Heart: RRR, no murmur, no gallops, no rubs, normal peripheral pulses Respiratory: CTAB, no wheezes, no rales, no ronchi, normal chest expansion, no tachypnea, normal percussion Respiratory - other findings: She did have one coughing spell during my exam. Gastrointestinal: soft, non-tender, non-distended, normal bowel sounds, no palpable masses, no hepatomegaly, no splenomegaly, no bruit Extremities - other findings: Left fourth toe is black. Right BKA. Skin: normal turgor Neurological: no focal deficits Musculoskeletal: generalized weakness Psychiatric: normal affect Hosp A/P (1) Ischemic toe Code(s): I99.8 - OTHER DISORDER OF CIRCULATORY SYSTEM Status: Acute (2) ESRD (end stage renal disease) on dialysis Code(s): N18.6 - END STAGE RENAL DISEASE; Z99.2 - DEPENDENCE ON RENAL DIALYSIS Status: Acute (3) Cellulitis Code(s): L03.90 - CELLULITIS, UNSPECIFIED Status: Acute (4) Hyperkalemia Code(s): E87.5 - HYPERKALEMIA Status: Acute (5) Nausea & vomiting Code(s): R11.2 - NAUSEA WITH VOMITING, UNSPECIFIED Status: Acute (6) Chronic anemia Code(s): D64.9 - ANEMIA, UNSPECIFIED Status: Chronic (7) DM type 2 (diabetes mellitus, type 2) Status: Chronic Qualifiers: Diabetes mellitus complication status: with kidney complications Diabetes mellitus complication detail: with chronic kidney disease Chronic kidney disease stage: on chronic dialysis (8) HTN (hypertension) Code(s): I10 - ESSENTIAL (PRIMARY) HYPERTENSION Status: Chronic Qualifiers: (9) Peripheral artery disease Code(s): I73.9 - PERIPHERAL VASCULAR DISEASE, UNSPECIFIED Status: Chronic (10) Acute acalculous cholecystitis Code(s): K81.0 - ACUTE CHOLECYSTITIS Status: Acute - Plan Left fourth toe infarct: Left fourth toe is ischemic. Dr. Sepulveda consulted, performed angioplasty and stenting to the vasculature of the left lower extremity. Tolerated well. Does not appear to have any significant infection in this area. Will allow the toe to progress naturally. COVID-19 infection: This patient has a positive COVID test which was performed for preoperative screening. She has mild oxygen requirements. She did not meet criteria for antiviral therapy. She has not had any dexamethasone given her cholecystitis and cholecystectomy. Acute acalculous cholecystitis: S/P lap emmie on 04/20. Clears. Advance as tolerated. ESRD: Nephrology following. Continue HD. DM: Fair control. No change. HTN: Stable. Hyperkalemia: Mild. Secondary to the ESRD. N/V: Resolved. Disposition: We will obtain a physical therapy evaluation. I requested: Of the patient's daughters. Got permission from the patient. I attempted to call Judi.Number is [phone]. She answered the phone but asked me to hold for her and ultimately I had to hang up. Will attempt later. Will make a decision on disposition based on the physical therapy evaluation.
[2020-04-22] MEDS: HYDROcodone/Acetaminophen 5/325 mg Tablet PO PRN (15:03)
--- NOTE | 2020-04-22 17:52 | PRG ---
DATE OF SERVICE: 04/22/2020 SUBJECTIVE: Ms. Saldivar is in the 4th floor. She is moaning and groaning from pain in the abdominal area, right upper quadrant. She tested positive for COVID, which is a preoperative test and she underwent a laparoscopic cholecystectomy. The operative report was reviewed and the patient had a laparoscopic evaluation. The gallbladder was markedly distended and short, gallbladder was decompressed, and then the cystic duct and artery were dissected. Cystic artery was divided and the gallbladder was removed from the liver bed, area was irrigated. OBJECTIVE: VITAL SIGNS: She has been afebrile for the past few days. Blood pressure 111/68, pulse 76, respirations 18, and O2 saturation ranging from 93% to 97%. LUNGS: She has symmetric air entry. Few crackles here and there. HEART: S1 and S2, regular rate. ABDOMEN: Moderately distended and tender to palpation in the right upper quadrant. No bladder distention. She is voiding in the diaper. EXTREMITIES: She is able to move extremities. The right fourth toe is necrotic and dry. LABORATORY DATA: White cell count 9.5, hemoglobin 8.5, platelets 261, 73% neutrophils. Sodium 139, creatinine is 9.65. AST 50, ALT less than 7, alkaline phosphatase 120, albumin 3.1. Blood cultures, no growth 5 days. Pathology is pending. ASSESSMENT: Type 2 diabetes; end-stage renal disease; peripheral vascular disease; prior right below-knee amputation; gangrene of fourth toe, acalculous cholecystitis, status post cholecystectomy, laparoscopic; persistence of the abdominal pain, but improvement in the overall inflammatory process; COVID-19 infection that she had a negative test before she came to the hospital and she continues on piperacillin tazobactam. She should be in the first 10 days of her COVID infection, so there is still room for deterioration in the ensuing days. She is receiving only 2 L nasal cannula and saturating well at this point in time. It would be hard to interpret the inflammatory markers since she has two other processes that would be associated with elevation in those as well. She is on heparin prophylaxis already, thromboembolism may consider. Job ID: [id number] [facility]
[2020-04-22] MEDS: Insulin Glargine 10 UNITS in Pre-Filled Syringe 1 EACH SC SCH (21:30)
[2020-04-23] MEDS: Ondansetron PF 4 MG/2 ML Vial IVP PRN ×2 (00:54→12:31)
[2020-04-23] MEDS: Promethazine HCl 25 MG in Sodium Chloride 0.9% 50 ML IVPB PRN (05:10)
[2020-04-23] MEDS: Piperacillin/Tazobactam 2.25 GM in Sodium Chloride 0.9% 100 ML IVPB SCH ×3 (05:13→21:15)
[2020-04-23] MEDS: Sevelamer Carbonate 800 MG TAB PO SCH ×3 (08:22→17:38)
[2020-04-23] MEDS: Aspirin 81 mg Enteric Coated Tablet PO SCH (08:22)
[2020-04-23] MEDS: Lisinopril 10 MG TAB PO SCH (08:23)
[2020-04-23] MEDS: Metoprolol Tartrate 25 MG TAB PO SCH ×2 (08:23→21:14)
[2020-04-23] MEDS: Ferrous Sulfate 325 MG TAB PO SCH ×3 (08:23→17:38)
[2020-04-23] MEDS: hydrALAZINE 25 MG TAB PO SCH ×3 (08:23→21:14)
[2020-04-23] MEDS: Heparin 5,000 UNITS/ML VIAL SC SCH ×3 (08:24→21:14)
[2020-04-23] MEDS: Pantoprazole 40 MG VIAL IVP SCH ×2 (08:24→21:14)
[2020-04-23] MEDS: EPOETIN ALFA-EPBX (ESRD) 4,000 UNIT/ML VIAL SC SCH (08:42)
--- NOTE | 2020-04-23 10:10 | RAD ---
CHEST 1 VIEW: Date: 04/23/2020 HISTORY: Shortness of breath. COMPARISON: 04/18/2020. FINDINGS: Increased bronchovascular markings noted bilaterally, including perihilar regions and mid and lower l chris zones. Somewhat less than optimal inspiration. IMPRESSION: Persistent increased markings bilaterally in the perihilar and lower lung zones. No new confluent pne umonia. Continue short-term follow-up. POS: RRE
[2020-04-23] MEDS: HYDROcodone/Acetaminophen 5/325 mg Tablet PO PRN (12:29)
[2020-04-23 13:09] VITALS: BMI 33.8
--- NOTE | 2020-04-23 17:42 | PDOC.HOSPP ---
- Subjective Encounter Date: 04/23/20 Subjective: Had has some persistent, mild abdominal pain. She had some recurrence of the nausea today as well. - Objective Vital Signs & Weight: Vital Signs (12 hours) Temp Pulse Resp BP Pulse Ox 04/23/20 16:22 61 117/62 94 L 04/23/20 12:35 72 16 113/62 93 L 04/23/20 08:30 98.2 F 76 16 124/67 94 L Weight Admit Weight 174 lb 4.8 oz Weight 162 lb I&O: 04/22/20 04/23/20 04/24/20 06:59 06:59 06:59 Intake Total 1830 1150 Output Total 0 Balance 1830 1150 Result Diagrams: 04/22/20 05:30 04/22/20 05:30 Additional Labs: Accuchecks 04/23/20 04/23/20 04/22/20 12:34 04:12 21:22 POC Glucose 102 95 90 04/22/20 17:25 POC Glucose 99 Hospitalist ROS - Medication Medications: Active Medications Generic Name Dose Route Start Last Admin Trade Name Freq PRN Reason Stop Dose Admin Acetaminophen 650 mg 04/15/20 20:11 04/19/20 19:32 Tylenol PO 650 mg Q4H PRN Administration Headache/Fever/Mild Pain (1-3) Acetaminophen 650 mg 04/15/20 20:11 04/19/20 01:05 Tylenol [place] 650 mg Q4H PRN Administration Headache/Fever/Mild Pain (1-3) Hydrocodone Bitart/Acetaminophen 1 tab 04/15/20 20:11 04/23/20 12:29 [place] 5/325 PO 1 tab Q4H PRN Administration Moderate Pain (4-6) Hydrocodone Bitart/Acetaminophen 2 tab 04/15/20 20:11 04/22/20 15:03 [place] 5/325 PO 2 tab Q4H PRN Administration Severe Pain (7-10) Aspirin 81 mg 04/16/20 09:00 04/23/20 08:22 Ecotrin PO 81 mg DAILY JONATHAN Administration Epoetin Marcelo-epbx 7,500 unit 04/16/20 08:15 04/23/20 08:42 Retacrit SC 7,500 unit Q7D JONATHAN Administration Ferrous Sulfate 325 mg 04/16/20 08:00 04/23/20 12:31 Feosol PO 325 mg TID-WM JONATHAN Administration Heparin Sodium (Porcine) 5,000 units 04/17/20 21:00 04/23/20 14:59 Heparin SC 5,000 units TID JONATHAN Administration Hydralazine HCl 50 mg 04/15/20 21:00 04/23/20 15:00 Apresoline PO Not Given TID JONATHAN Insulin Glargine 10 units/ 0.1 mls @ 0 mls/hr 04/15/20 21:00 04/22/20 21:30 Miscellaneous Medication SC Not Given HS JONATHAN Promethazine HCl 25 mg/ Sodium 51 mls @ 204 mls/hr 04/19/20 04:32 04/23/20 05 :10 Chloride IVPB 51 mls Q6H PRN Administration Nausea Piperacillin Sod/Tazobactam 100 mls @ 200 mls/hr 04/19/20 22:00 04/23/20 14: 59 Sod 2.25 gm/ Sodium Chloride IVPB 100 mls Q8HR [facility] Administration Insulin Human Lispro 0 units 04/15/20 20:17 04/21/20 12:51 Humalog SC 2 unit .MILD SLIDING SCALE PRN Administration Mild Correctional Scale Isosorbide Mononitrate 15 mg 04/16/20 09:00 04/23/20 08:23 Imdur Er PO 15 mg DAILY [facility] Administration Lisinopril 10 mg 04/16/20 09:00 04/23/20 08:23 Zestril PO 10 mg DAILY [facility] Administration Metoprolol Tartrate 25 mg 04/15/20 21:00 04/23/20 08:23 Lopressor PO 25 mg BID JONATHAN Administration Morphine Sulfate 2 mg 04/18/20 11:47 04/22/20 02:20 Morphine Sulfate SLOW IVP 2 mg Q4H PRN Administration Moderate to Severe Pain (6-10) Ondansetron HCl 4 mg 04/15/20 20:11 04/23/20 12:31 Zofran IVP 4 mg Q6H PRN Administration Nausea/Vomiting Pantoprazole Sodium 40 mg 04/18/20 21:00 04/23/20 08:24 Protonix IVP 40 mg Q12HR JONATHAN Administration Sevelamer Carbonate 2,400 mg 04/16/20 08:00 04/23/20 12:29 Renvela PO 2,400 mg TID-WM JONATHAN Administration - Exam General Appearance: NAD, awake alert Heart: RRR, no murmur, no gallops, no rubs, normal peripheral pulses Respiratory: CTAB, no wheezes, no ronchi, normal chest expansion, no tachypnea, normal percussion, rales (Fine, bilateral) Gastrointestinal: soft, non-tender, non-distended, normal bowel sounds, no palpable masses, no hepatomegaly, no splenomegaly, no bruit Extremities: no cyanosis, no clubbing, no edema Extremities - other findings: Left 4th toe infarcted. Skin: normal turgor Neurological: no focal deficits Musculoskeletal: generalized weakness Psychiatric: flat affect Hosp A/P (1) Ischemic toe Code(s): I99.8 - OTHER DISORDER OF CIRCULATORY SYSTEM Status: Acute (2) ESRD (end stage renal disease) on dialysis Code(s): N18.6 - END STAGE RENAL DISEASE; Z99.2 - DEPENDENCE ON RENAL DIALYSIS Status: Acute (3) Cellulitis Code(s): L03.90 - CELLULITIS, UNSPECIFIED Status: Acute (4) Hyperkalemia Code(s): E87.5 - HYPERKALEMIA Status: Acute (5) Nausea & vomiting Code(s): R11.2 - NAUSEA WITH VOMITING, UNSPECIFIED Status: Acute (6) Chronic anemia Code(s): D64.9 - ANEMIA, UNSPECIFIED Status: Chronic (7) DM type 2 (diabetes mellitus, type 2) Status: Chronic Qualifiers: Diabetes mellitus complication status: with kidney complications Diabetes mellitus complication detail: with chronic kidney disease Chronic kidney disease stage: on chronic dialysis (8) HTN (hypertension) Code(s): I10 - ESSENTIAL (PRIMARY) HYPERTENSION Status: Chronic Qualifiers: (9) Peripheral artery disease Code(s): I73.9 - PERIPHERAL VASCULAR DISEASE, UNSPECIFIED Status: Chronic (10) Acute acalculous cholecystitis Code(s): K81.0 - ACUTE CHOLECYSTITIS Status: Acute - Plan Left fourth toe infarct: Left fourth toe is ischemic. Dr. Sepulveda consulted, performed angioplasty and stenting to the vasculature of the left lower extremity. Tolerated well. Does not appear to have any significant infection in this area. Will allow the toe to progress naturally. COVID-19 infection: This patient has a positive COVID test which was performed for preoperative screening. She has mild oxygen requirements. She did not meet criteria for antiviral therapy. She has not had any dexamethasone given her cholecystitis and cholecystectomy. Acute acalculous cholecystitis: S/P lap emmie on 04/20. Clears. Advance as tolerated. ESRD: Nephrology following. Continue HD. DM: Fair control. No change. HTN: Stable. Hyperkalemia: Mild. Secondary to the ESRD. N/V: Recurred, but mild. Has been able to keep some PO's down. Disposition: Spoke with her daughter Judi. She says the patient's is 20 years her senior and would be high risk if he got Covid. Therefore, they do not feel she would be able to return home as he is the only one there to help her. Discussed with CM. May need SNF.
[2020-04-23] MEDS: Insulin Glargine 10 UNITS in Pre-Filled Syringe 1 EACH SC SCH (21:19)
[2020-04-24] MEDS: Piperacillin/Tazobactam 2.25 GM in Sodium Chloride 0.9% 100 ML IVPB SCH ×3 (06:18→22:07)
[2020-04-24 06:29] LABS: #Eosinphils 0.1 thou/uL (0.0-0.7); #Lymphocytes 1.8 thou/uL (1.20-3.40); #Monocytes 0.9 thou/uL (0.11-0.59); #Neutrophils 9.3 thou/uL (1.40-6.50); %Basophils 0.1 % (0.0-1.0); %Eosinophils 0.6 % (0.0-10.0); %Lymphocytes 14.6 % (21.0-51.0); %Monocytes 7.5 % (0.0-10.0); %Neutrophils 77.2 % (42.0-75.0); Hemoglobin 9.5 g/dL (12.0-16.0); Mean Corpuscular HGB CONC 32.1 g/dL (32.0-36.0); Mean Corpuscular Hemoglobin 31.1 pg (27.0-31.0); Platelet Count 276 thou/uL (130-400); RBC Distribution Width 13.8 % (11.5-14.5); Red Blood Cell (RBC) Count 3.04 mill/uL (4.20-5.40)
[2020-04-24 06:49] LABS: Anion Gap 19 mmol/L (10-20); BUN (Urea Nitrogen) 39 mg/dL (9.8-20.1); Calc. Creatinine Clearance 8 mL/min (70-130); Calcium 6.5 mg/dL (7.8-10.44); Carbon Dioxide 26 mmol/L (23-31); Chloride 94 mmol/L (98-107); Estimated GFR-MDRD 5; Glucose 114 mg/dL (80-115); Potassium 4.1 mmol/L (3.5-5.1); Sodium 135 mmol/L (136-145)
[2020-04-24] MEDS: Sevelamer Carbonate 800 MG TAB PO SCH (07:44)
[2020-04-24] MEDS: Ferrous Sulfate 325 MG TAB PO SCH ×3 (07:44→17:00)
[2020-04-24] MEDS: Lisinopril 10 MG TAB PO SCH (09:58)
[2020-04-24] MEDS: Aspirin 81 mg Enteric Coated Tablet PO SCH (09:58)
[2020-04-24] MEDS: Metoprolol Tartrate 25 MG TAB PO SCH ×2 (09:59→22:08)
[2020-04-24] MEDS: hydrALAZINE 25 MG TAB PO SCH ×3 (09:59→22:08)
[2020-04-24] MEDS: Heparin 5,000 UNITS/ML VIAL SC SCH ×3 (09:59→22:10)
[2020-04-24] MEDS: Pantoprazole 40 MG VIAL IVP SCH ×2 (10:00→22:21)
--- NOTE | 2020-04-24 10:13 | PRG ---
DATE OF SERVICE: 04/24/2020 SUBJECTIVE: Ms. Saldivar is a 59-year-old female with ESRD and followed by the [facility] for her maintenance hemodialysis. I have scheduled her for her regular 3.5 hours hemodialysis today. She was found to be COVID positive. For this reason, we are doing isolation with her. She also has undergone a laparoscopic cholecystectomy as well as revascularization of her left leg-stent was placed in the involved lower leg arteries. No other complaints today. OBJECTIVE: VITAL SIGNS: Blood pressure is 137/63, heart rate 61, respiratory rate 18, O2 saturation 98%. GENERAL: The patient is awake, alert, comfortable, not in distress. SKIN: Adequate turgor. HEENT: She has pinkish conjunctivae. Anicteric sclerae. NECK: No neck mass. No carotid bruits. No JVD. CHEST: No deformities. LUNGS: Clear breath sounds. No wheezing. No crackles. HEART: Normal sinus rhythm. No murmur. No gallops. No rubs. ABDOMEN: Globular, soft, nontender. No masses. EXTREMITIES: Status post right BKA. Left foot, no erythema noted. Nontender. MEDICATIONS: Medications of April 24, 2020, were reviewed. LABORATORY DATA: Laboratories of April 24, 2020; white count 12, hemoglobin 9.5. Sodium 135, potassium 4.1, chloride 94, carbon dioxide 26, BUN 39, creatinine 8.28, calcium is 6.5. ASSESSMENT AND PLAN: 1. End-stage renal disease, stable. We will continue current hemodialysis regimen on Wednesday, Wednesday, and Wednesday. Fluid removal as tolerated. 2. Anemia, currently on weekly Epogen. 3. Hypocalcemia. We will adjust binder use with this patient. We will be starting this patient on PhosLo and discontinue the sevelamer. Job ID: [id number]
[2020-04-24] MEDS: Calcium Acetate 667 MG CAP PO SCH ×2 (13:03→17:00)
--- NOTE | 2020-04-24 13:14 | PDOC.HOSPP ---
- Subjective Encounter Date: 04/24/20 Subjective: Patient seen and examined bedside this morning resting in bed no acute distress pain improving no fever chills nausea or vomiting no significant overnight events patient awaiting possible SNF placement that can take covid patient - Objective Vital Signs & Weight: Vital Signs (12 hours) Pulse Ox 04/24/20 08:00 98 Weight Admit Weight 174 lb 4.8 oz Weight 162 lb I&O: 04/23/20 04/24/20 04/25/20 06:59 06:59 06:59 Intake Total 1150 1100 Output Total 0 Balance 1150 1100 Result Diagrams: 04/24/20 05:52 04/24/20 05:52 Additional Labs: Accuchecks 04/24/20 04/24/20 04/23/20 10:42 06:28 21:29 POC Glucose 205 H 134 H 133 H 04/23/20 16:18 POC Glucose 94 Hospitalist ROS - Medication Medications: Active Medications Generic Name Dose Route Start Last Admin Trade Name Freq PRN Reason Stop Dose Admin Acetaminophen 650 mg 04/15/20 20:11 04/19/20 19:32 Tylenol PO 650 mg Q4H PRN Administration Headache/Fever/Mild Pain (1-3) Acetaminophen 650 mg 04/15/20 20:11 04/19/20 01:05 Tylenol [place] 650 mg Q4H PRN Administration Headache/Fever/Mild Pain (1-3) Hydrocodone Bitart/Acetaminophen 1 tab 04/15/20 20:11 04/23/20 12:29 [place] 5/325 PO 1 tab Q4H PRN Administration Moderate Pain (4-6) Hydrocodone Bitart/Acetaminophen 2 tab 04/15/20 20:11 04/22/20 15:03 [place] 5/325 PO 2 tab Q4H PRN Administration Severe Pain (7-10) Aspirin 81 mg 04/16/20 09:00 04/24/20 09:58 Ecotrin PO 81 mg DAILY JONATHAN Administration Calcium Acetate 1,334 mg 04/24/20 12:00 04/24/20 13:03 Phoslo PO Not Given TID-WM JONATHAN Epoetin Marcelo-epbx 7,500 unit 04/16/20 08:15 04/23/20 08:42 Retacrit SC 7,500 unit Q7D JONATHAN Administration Ferrous Sulfate 325 mg 04/16/20 08:00 04/24/20 13:03 Feosol PO Not Given TID-[facility] Heparin Sodium (Porcine) 5,000 units 04/17/20 21:00 04/24/20 09:59 Heparin SC 5,000 units TID JONATHAN Administration Hydralazine HCl 50 mg 04/15/20 21:00 04/24/20 09:59 Apresoline PO 50 mg TID JONATHAN Administration Insulin Glargine 10 units/ 0.1 mls @ 0 mls/hr 04/15/20 21:00 04/23/20 21:19 Miscellaneous Medication SC 0.1 mls HS JONATHAN Administration Promethazine HCl 25 mg/ Sodium 51 mls @ 204 mls/hr 04/19/20 04:32 04/23/20 05 :10 Chloride IVPB 51 mls Q6H PRN Administration Nausea Piperacillin Sod/Tazobactam 100 mls @ 200 mls/hr 04/19/20 22:00 04/24/20 06: 18 Sod 2.25 gm/ Sodium Chloride IVPB 100 mls Q8HR JONATHAN Administration Insulin Human Lispro 0 units 04/15/20 20:17 04/21/20 12:51 Humalog SC 2 unit .MILD SLIDING SCALE PRN Administration Mild Correctional Scale Isosorbide Mononitrate 15 mg 04/16/20 09:00 04/24/20 09:59 Imdur Er PO 15 mg DAILY [facility] Administration Lisinopril 10 mg 04/16/20 09:00 04/24/20 09:58 Zestril PO 10 mg DAILY [facility] Administration Metoprolol Tartrate 25 mg 04/15/20 21:00 04/24/20 09:59 Lopressor PO 25 mg BID [facility] Administration Morphine Sulfate 2 mg 04/18/20 11:47 04/22/20 02:20 Morphine Sulfate SLOW IVP 2 mg Q4H PRN Administration Moderate to Severe Pain (6-10) Ondansetron HCl 4 mg 04/15/20 20:11 04/23/20 12:31 Zofran IVP 4 mg Q6H PRN Administration Nausea/Vomiting Pantoprazole Sodium 40 mg 04/18/20 21:00 04/24/20 10:00 Protonix IVP 40 mg Q12HR JONATHAN Administration - Exam General Appearance: NAD, awake alert Eye: PERRL Neck: supple Heart: RRR Respiratory: CTAB, no wheezes Gastrointestinal: soft Hosp A/P (1) COVID-19 Code(s): U07.1 - COVID-19 Status: Acute (2) Acute acalculous cholecystitis Code(s): K81.0 - ACUTE CHOLECYSTITIS Status: Acute (3) ESRD (end stage renal disease) on dialysis Code(s): N18.6 - END STAGE RENAL DISEASE; Z99.2 - DEPENDENCE ON RENAL DIALYSIS Status: Acute (4) Abdominal pain Code(s): R10.9 - UNSPECIFIED ABDOMINAL PAIN Status: Acute Qualifiers: Abdominal location: lower abdomen, unspecified Qualified Code(s): R10.30 - Lower abdominal pain, unspecified (5) CHF (congestive heart failure) Code(s): I50.9 - HEART FAILURE, UNSPECIFIED Status: Acute (6) Diabetic ulcer of right foot associated with diabetes mellitus due to underlying condition Code(s): E08.621 - DIABETES MELLITUS DUE TO UNDERLYING CONDITION W FOOT ULCER; L97.519 - NON-PRS CHRONIC ULCER OTH PRT RIGHT FOOT W UNSP SEVERITY Status: Acute (7) HTN (hypertension) Code(s): I10 - ESSENTIAL (PRIMARY) HYPERTENSION Status: Chronic Qualifiers: - Plan Left fourth toe infarct: Left fourth toe is ischemic. Dr. Sepulveda consulted, performed angioplasty and stenting to the vasculature of the left lower extremity. Tolerated well. Does not appear to have any significant infection in this area. Will allow the toe to progress naturally. Continue with pain management and monitor for now COVID-19 infection: This patient has a positive COVID test which was performed for preoperative screening. She has mild oxygen requirements. She did not meet criteria for antiviral therapy. She has not had any dexamethasone given her cholecystitis and cholecystectomy. Patient remained afebrile her symptoms appears to be stable Acute acalculous cholecystitis: S/P lap emmie on 04/20. Clears. Advance as tolerated. Pain under control ESRD: Nephrology following. Continue HD. Avoid nephrotoxins and renally adjust medications DM: Fair control. No change. HTN: Stable. We will continue to monitor and adjust meds as needed Hyperkalemia: Mild. Secondary to the ESRD. N/V: Recurred, but mild. Has been able to keep some PO's down. Disposition: According to her daughter Judi. She says the patient's is 20 years her senior and would be high risk if he got Covid. Therefore, they do not feel she would be able to return home as he is the only one there to help her. Discussed with CM. May need SNF. Awaiting acceptance patient can be discharged once accepted to SNF
[2020-04-24 14:07] LABS: #Eosinphils 0.1 thou/uL (0.0-0.7); #Lymphocytes 1.4 thou/uL (1.20-3.40); #Monocytes 0.6 thou/uL (0.11-0.59); #Neutrophils 9.3 thou/uL (1.40-6.50); %Eosinophils 0.6 % (0.0-10.0); %Monocytes 5.3 % (0.0-10.0); %Neutrophils 82.1 % (42.0-75.0); Hemoglobin 9.2 g/dL (12.0-16.0); Mean Corpuscular HGB CONC 31.6 g/dL (32.0-36.0); Mean Corpuscular Hemoglobin 30.6 pg (27.0-31.0); Mean Corpuscular Volume 96.8 fL (78.0-98.0); Mean Platelet Volume 7.8 fL (7.4-10.4); Platelet Count 283 thou/uL (130-400); White Blood Cell (WBC) Count 11.4 thou/uL (4.8-10.8)
[2020-04-24 14:28] LABS: Anion Gap 14 mmol/L (10-20); BUN (Urea Nitrogen) 32 mg/dL (9.8-20.1); Calc. Creatinine Clearance 11 mL/min (70-130); Calcium 6.7 mg/dL (7.8-10.44); Carbon Dioxide 28 mmol/L (23-31); Chloride 95 mmol/L (98-107); Estimated GFR-MDRD 7; Glucose 154 mg/dL (80-115); Sodium 133 mmol/L (136-145)
[2020-04-24] MEDS: HYDROcodone/Acetaminophen 5/325 mg Tablet PO PRN (17:01)
[2020-04-24] MEDS: Insulin Glargine 10 UNITS in Pre-Filled Syringe 1 EACH SC SCH (22:09)
[2020-04-25] MEDS: Piperacillin/Tazobactam 2.25 GM in Sodium Chloride 0.9% 100 ML IVPB SCH ×3 (06:19→21:37)
[2020-04-25 06:48] LABS: Anion Gap 16 mmol/L (10-20); BUN (Urea Nitrogen) 22 mg/dL (9.8-20.1); Calc. Creatinine Clearance 13 mL/min (70-130); Calcium 7.3 mg/dL (7.8-10.44); Carbon Dioxide 28 mmol/L (23-31); Chloride 95 mmol/L (98-107); Estimated GFR-MDRD 8; Glucose 104 mg/dL (80-115); Magnesium 2.1 mg/dL (1.6-2.6); Sodium 135 mmol/L (136-145)
[2020-04-25] MEDS: Calcium Acetate 667 MG CAP PO SCH ×3 (08:22→16:00)
[2020-04-25] MEDS: Aspirin 81 mg Enteric Coated Tablet PO SCH (08:22)
[2020-04-25] MEDS: hydrALAZINE 25 MG TAB PO SCH ×3 (08:23→20:29)
[2020-04-25] MEDS: Ferrous Sulfate 325 MG TAB PO SCH ×3 (08:23→16:00)
[2020-04-25] MEDS: Metoprolol Tartrate 25 MG TAB PO SCH ×2 (08:25→20:29)
[2020-04-25] MEDS: Heparin 5,000 UNITS/ML VIAL SC SCH ×3 (08:25→20:29)
[2020-04-25] MEDS: Lisinopril 10 MG TAB PO SCH (08:26)
[2020-04-25] MEDS: Pantoprazole 40 MG VIAL IVP SCH ×2 (08:27→20:31)
--- NOTE | 2020-04-25 12:48 | PDOC.HOSPP ---
- Subjective Encounter Date: 04/25/20 Subjective: pt seen and examined , denies any cough , sob or chest pain , tolerating po intake no new complains today - Objective Vital Signs & Weight: Vital Signs (12 hours) Temp Pulse Pulse Resp BP BP Pulse Ox 04/25/20 12:33 98.5 F 72 16 139/66 94 L 04/25/20 09:40 64 136/72 04/25/20 08:00 98.7 F 75 16 132/69 96 Pulse Ox 04/25/20 12:33 04/25/20 09:40 94 L 04/25/20 08:00 Weight Admit Weight 174 lb 4.8 oz Weight 162 lb I&O: 04/24/20 04/25/20 04/26/20 06:59 06:59 06:59 Intake Total 1100 1300 Balance 1100 1300 Result Diagrams: 04/24/20 13:56 04/25/20 06:06 Additional Labs: Accuchecks 04/25/20 04/25/20 04/24/20 11:44 06:29 19:59 POC Glucose 120 H 100 168 H 04/24/20 17:13 POC Glucose 109 Hospitalist ROS - Medication Medications: Active Medications Generic Name Dose Route Start Last Admin Trade Name Freq PRN Reason Stop Dose Admin Acetaminophen 650 mg 04/15/20 20:11 04/19/20 19:32 Tylenol PO 650 mg Q4H PRN Administration Headache/Fever/Mild Pain (1-3) Acetaminophen 650 mg 04/15/20 20:11 04/19/20 01:05 Tylenol [place] 650 mg Q4H PRN Administration Headache/Fever/Mild Pain (1-3) Hydrocodone Bitart/Acetaminophen 1 tab 04/15/20 20:11 04/24/20 17:01 [place] 5/325 PO 1 tab Q4H PRN Administration Moderate Pain (4-6) Hydrocodone Bitart/Acetaminophen 2 tab 04/15/20 20:11 04/22/20 15:03 [place] 5/325 PO 2 tab Q4H PRN Administration Severe Pain (7-10) Aspirin 81 mg 04/16/20 09:00 04/25/20 08:22 Ecotrin PO 81 mg DAILY JONATHAN Administration Calcium Acetate 1,334 mg 04/24/20 12:00 04/25/20 12:36 Phoslo PO 1,334 mg TID-WM [facility] Administration Epoetin Marcelo-epbx 7,500 unit 04/16/20 08:15 04/23/20 08:42 Retacrit SC 7,500 unit Q7D JONATHAN Administration Ferrous Sulfate 325 mg 04/16/20 08:00 04/25/20 12:37 Feosol PO 325 mg TID-WM JONATHAN Administration Heparin Sodium (Porcine) 5,000 units 04/17/20 21:00 04/25/20 08:25 Heparin SC 5,000 units TID JONATHAN Administration Hydralazine HCl 50 mg 04/15/20 21:00 04/25/20 08:23 Apresoline PO 50 mg TID [facility] Administration Insulin Glargine 10 units/ 0.1 mls @ 0 mls/hr 04/15/20 21:00 04/24/20 22:09 Miscellaneous Medication SC 0.1 mls HS JONATHAN Administration Promethazine HCl 25 mg/ Sodium 51 mls @ 204 mls/hr 04/19/20 04:32 04/23/20 05 :10 Chloride IVPB 51 mls Q6H PRN Administration Nausea Piperacillin Sod/Tazobactam 100 mls @ 200 mls/hr 04/19/20 22:00 04/25/20 06: 19 Sod 2.25 gm/ Sodium Chloride IVPB 100 mls Q8HR JONATHAN Administration Insulin Human Lispro 0 units 04/15/20 20:17 04/21/20 12:51 Humalog SC 2 unit .MILD SLIDING SCALE PRN Administration Mild Correctional Scale Isosorbide Mononitrate 15 mg 04/16/20 09:00 04/25/20 08:24 Imdur Er PO 15 mg DAILY JONATHAN Administration Lisinopril 10 mg 04/16/20 09:00 04/25/20 08:26 Zestril PO 10 mg DAILY JONATHAN Administration Metoprolol Tartrate 25 mg 04/15/20 21:00 04/25/20 08:25 Lopressor PO 25 mg BID JONATHAN Administration Morphine Sulfate 2 mg 04/18/20 11:47 04/22/20 02:20 Morphine Sulfate SLOW IVP 2 mg Q4H PRN Administration Moderate to Severe Pain (6-10) Ondansetron HCl 4 mg 04/15/20 20:11 04/23/20 12:31 Zofran IVP 4 mg Q6H PRN Administration Nausea/Vomiting Pantoprazole Sodium 40 mg 04/18/20 21:00 04/25/20 08:27 Protonix IVP 40 mg Q12HR JNOATHAN Administration - Exam General Appearance: NAD, awake alert Eye: PERRL, anicteric sclera ENT: normocephalic atraumatic Neck: supple Heart: RRR Respiratory: CTAB Gastrointestinal: soft Musculoskeletal: normal tone Hosp A/P (1) COVID-19 Code(s): U07.1 - COVID-19 Status: Acute (2) Acute acalculous cholecystitis Code(s): K81.0 - ACUTE CHOLECYSTITIS Status: Acute (3) ESRD (end stage renal disease) on dialysis Code(s): N18.6 - END STAGE RENAL DISEASE; Z99.2 - DEPENDENCE ON RENAL DIALYSIS Status: Acute (4) Abdominal pain Code(s): R10.9 - UNSPECIFIED ABDOMINAL PAIN Status: Acute Qualifiers: Abdominal location: lower abdomen, unspecified Qualified Code(s): R10.30 - Lower abdominal pain, unspecified (5) CHF (congestive heart failure) Code(s): I50.9 - HEART FAILURE, UNSPECIFIED Status: Acute (6) Diabetic ulcer of right foot associated with diabetes mellitus due to underlying condition Code(s): E08.621 - DIABETES MELLITUS DUE TO UNDERLYING CONDITION W FOOT ULCER; L97.519 - NON-PRS CHRONIC ULCER OTH PRT RIGHT FOOT W UNSP SEVERITY Status: Acute (7) HTN (hypertension) Code(s): I10 - ESSENTIAL (PRIMARY) HYPERTENSION Status: Chronic Qualifiers: - Plan Left fourth toe infarct: Left fourth toe is ischemic. Dr. Sepulveda consulted, performed angioplasty and stenting to the vasculature of the left lower extremity. Tolerated well. Does not appear to have any significant infection in this area. Will allow the toe to progress naturally. Continue with pain management and monitor for now, pt stable pain under control COVID-19 infection: This patient has a positive COVID test which was performed for preoperative screening. She has mild oxygen requirements. She did not meet criteria for antiviral therapy. She has not had any dexamethasone given her cholecystitis and cholecystectomy. Patient remained afebrile her symptoms appears to be stable sats good on room air Acute acalculous cholecystitis: S/P lap emmie on 04/20. Clears. Advance as tolerated. Pain under control ESRD: Nephrology following. Continue HD. Avoid nephrotoxins and renally adjust medications DM: Fair control. No change. HTN: Stable. We will continue to monitor and adjust meds as needed Hyperkalemia: Mild. Secondary to the ESRD. N/V: Recurred, but mild. Has been able to keep some PO's down. Disposition: According to her daughter Judi. She says the patient's is 20 years her senior and would be high risk if he got Covid. Therefore, they do not feel she would be able to return home as he is the only one there to help her. Discussed with CM. May need SNF. Awaiting acceptance patient can be discharged once accepted to SNF
[2020-04-25] MEDS: Insulin Glargine 10 UNITS in Pre-Filled Syringe 1 EACH SC SCH (20:29)
[2020-04-26] MEDS: Piperacillin/Tazobactam 2.25 GM in Sodium Chloride 0.9% 100 ML IVPB SCH ×3 (04:59→22:38)
[2020-04-26] MEDS: Acetaminophen 325 MG TAB PO PRN (05:00)
[2020-04-26] MEDS: Aspirin 81 mg Enteric Coated Tablet PO SCH (07:36)
[2020-04-26] MEDS: Lisinopril 10 MG TAB PO SCH (07:36)
[2020-04-26] MEDS: Ferrous Sulfate 325 MG TAB PO SCH ×3 (07:36→17:35)
[2020-04-26] MEDS: Calcium Acetate 667 MG CAP PO SCH ×3 (07:36→17:35)
[2020-04-26] MEDS: Metoprolol Tartrate 25 MG TAB PO SCH ×2 (07:38→22:37)
[2020-04-26] MEDS: Pantoprazole 40 MG VIAL IVP SCH ×2 (07:38→22:37)
[2020-04-26] MEDS: hydrALAZINE 25 MG TAB PO SCH ×3 (07:38→22:37)
[2020-04-26] MEDS: Heparin 5,000 UNITS/ML VIAL SC SCH ×3 (07:38→22:36)
[2020-04-26] MEDS: Ondansetron PF 4 MG/2 ML Vial IVP PRN ×2 (08:11→23:03)
--- NOTE | 2020-04-26 09:53 | PRG ---
DATE OF SERVICE: 04/26/2020 SUBJECTIVE: Ms. Saldivar is a 59-year-old, female, with ESRD and was initially admitted for left foot ischemia. She underwent revascularization-stent placement. During the initial evaluation, she was found to be COVID-19 positive. For this reason, we are dialyzing her under isolation. No new complaints today. Denies any chest pain or shortness of breath. OBJECTIVE: VITAL SIGNS: Blood pressure 135/73, heart rate 74, respiratory rate 20, temperature 97.8, O2 saturation is 98%. GENERAL: She is noted to be awake, alert, comfortable, not in distress. SKIN: Adequate turgor. HEENT: Slightly pale conjunctivae. Anicteric sclerae. NECK: No neck mass. No carotid bruits. No JVD. CHEST: No deformities. LUNGS: Clear breath sounds. No wheezing. No crackles. HEART: Normal sinus rhythm. No murmur. No gallops. No rubs. ABDOMEN: Globular, soft, nontender. No masses. EXTREMITIES: No edema, no erythema of the left foot. Status post right BKA. MEDICATIONS: Of April 26, 2020, reviewed. LABORATORIES: Of April 24, 2020: White count 11.4, hemoglobin 9.2. Sodium 135, potassium 4, chloride 95, carbon dioxide 28, BUN 22, creatinine 5.25, calcium 7.3. On April 26, 2020, glucose 116. ASSESSMENT AND PLAN: 1. Anemia. Currently, on weekly Epogen and iron supplementation. 2. End-stage renal disease, stable. We will continue current Wednesday, Wednesday, and Wednesday hemodialysis. Fluid removal as tolerated by the patient. 3. COVID-19 infection - supportive care. 4. Peripheral vascular disease, status post revascularization of left lower extremity. Doing well. Surgery is following. Overall, agree with current management. We will recheck basic metabolics and CBC in a.m. Job ID: [id number]
--- NOTE | 2020-04-26 11:53 | PDOC.HOSPP ---
- Subjective Encounter Date: 04/26/20 Subjective: Patient seen examined bedside this morning resting in bed she reported her pain has improved however she had episode of nonbloody nonbilious vomiting this morning no significant overnight events patient has remained afebrile currently saturating well on room air - Objective Vital Signs & Weight: Vital Signs (12 hours) Temp Pulse Resp BP Pulse Ox 04/26/20 07:38 70 04/26/20 07:35 97.8 F 74 20 135/73 98 04/26/20 00:00 98.6 F 70 18 146/60 H 96 Weight Admit Weight 174 lb 4.8 oz Weight 162 lb I&O: 04/25/20 04/26/20 04/27/20 06:59 06:59 06:59 Intake Total 1300 1350 Balance 1300 1350 Result Diagrams: 04/24/20 13:56 04/25/20 06:06 Additional Labs: Accuchecks 04/26/20 04/25/20 04/25/20 05:06 20:40 15:33 POC Glucose 116 H 132 H 123 H 04/25/20 11:44 POC Glucose 120 H Hospitalist ROS - Medication Medications: Active Medications Generic Name Dose Route Start Last Admin Trade Name Freq PRN Reason Stop Dose Admin Acetaminophen 650 mg 04/15/20 20:11 04/26/20 05:00 Tylenol PO 650 mg Q4H PRN Administration Headache/Fever/Mild Pain (1-3) Acetaminophen 650 mg 04/15/20 20:11 04/19/20 01:05 Tylenol [place] 650 mg Q4H PRN Administration Headache/Fever/Mild Pain (1-3) Aspirin 81 mg 04/16/20 09:00 04/26/20 07:36 Ecotrin PO 81 mg DAILY JONATHAN Administration Calcium Acetate 1,334 mg 04/24/20 12:00 04/26/20 07:36 Phoslo PO 1,334 mg TID-WM JONATHAN Administration Epoetin Marcelo-epbx 7,500 unit 04/16/20 08:15 04/23/20 08:42 Retacrit SC 7,500 unit Q7D JONATHAN Administration Ferrous Sulfate 325 mg 04/16/20 08:00 04/26/20 07:36 Feosol PO 325 mg TID-WM JONATHAN Administration Heparin Sodium (Porcine) 5,000 units 04/17/20 21:00 04/26/20 07:38 Heparin SC 5,000 units TID JONATHAN Administration Hydralazine HCl 50 mg 04/15/20 21:00 04/26/20 07:38 Apresoline PO 50 mg TID JONATHAN Administration Insulin Glargine 10 units/ 0.1 mls @ 0 mls/hr 04/15/20 21:00 04/25/20 20:29 Miscellaneous Medication SC 0.1 mls HS JONATHAN Administration Promethazine HCl 25 mg/ Sodium 51 mls @ 204 mls/hr 04/19/20 04:32 04/23/20 05 :10 Chloride IVPB 51 mls Q6H PRN Administration Nausea Piperacillin Sod/Tazobactam 100 mls @ 200 mls/hr 04/19/20 22:00 04/26/20 04: 59 Sod 2.25 gm/ Sodium Chloride IVPB 100 mls Q8HR JONATHAN Administration Insulin Human Lispro 0 units 04/15/20 20:17 04/21/20 12:51 Humalog SC 2 unit .MILD SLIDING SCALE PRN Administration Mild Correctional Scale Isosorbide Mononitrate 15 mg 04/16/20 09:00 04/26/20 07:37 Imdur Er PO 15 mg DAILY JONATHAN Administration Lisinopril 10 mg 04/16/20 09:00 04/26/20 07:36 Zestril PO 10 mg DAILY JONATHAN Administration Metoprolol Tartrate 25 mg 04/15/20 21:00 04/26/20 07:38 Lopressor PO 25 mg BID JONATHAN Administration Morphine Sulfate 2 mg 04/18/20 11:47 04/22/20 02:20 Morphine Sulfate SLOW IVP 2 mg Q4H PRN Administration Moderate to Severe Pain (6-10) Ondansetron HCl 4 mg 04/15/20 20:11 04/26/20 08:11 Zofran IVP 4 mg Q6H PRN Administration Nausea/Vomiting Pantoprazole Sodium 40 mg 04/18/20 21:00 04/26/20 07:38 Protonix IVP 40 mg Q12HR JONATHAN Administration - Exam General Appearance: NAD, awake alert Eye: PERRL Heart: RRR Respiratory: CTAB Gastrointestinal: soft, non-tender Hosp A/P (1) COVID-19 Code(s): U07.1 - COVID-19 Status: Acute (2) Acute acalculous cholecystitis Code(s): K81.0 - ACUTE CHOLECYSTITIS Status: Acute (3) ESRD (end stage renal disease) on dialysis Code(s): N18.6 - END STAGE RENAL DISEASE; Z99.2 - DEPENDENCE ON RENAL DIALYSIS Status: Acute (4) Abdominal pain Code(s): R10.9 - UNSPECIFIED ABDOMINAL PAIN Status: Acute Qualifiers: Abdominal location: lower abdomen, unspecified Qualified Code(s): R10.30 - Lower abdominal pain, unspecified (5) CHF (congestive heart failure) Code(s): I50.9 - HEART FAILURE, UNSPECIFIED Status: Acute (6) Diabetic ulcer of right foot associated with diabetes mellitus due to underlying condition Code(s): E08.621 - DIABETES MELLITUS DUE TO UNDERLYING CONDITION W FOOT ULCER; L97.519 - NON-PRS CHRONIC ULCER OTH PRT RIGHT FOOT W UNSP SEVERITY Status: Acute (7) HTN (hypertension) Code(s): I10 - ESSENTIAL (PRIMARY) HYPERTENSION Status: Chronic Qualifiers: - Plan Left fourth toe infarct: Left fourth toe is ischemic. Dr. Sepulveda consulted, performed angioplasty and stenting to the vasculature of the left lower extremity. Tolerated well. Does not appear to have any significant infection in this area. Will allow the toe to progress naturally. Continue with pain management and monitor for now, pt stable pain under control COVID-19 infection: This patient has a positive COVID test which was performed for preoperative screening. She has mild oxygen requirements. She did not meet criteria for antiviral therapy. She has not had any dexamethasone given her cholecystitis and cholecystectomy. Patient remained afebrile her symptoms appears to be stable sats good on room air Acute acalculous cholecystitis: S/P lap emmie on 04/20. Clears. Advance as tolerated. Pain under control Today patient is complaining of vomiting this morning we will continue with Zofran advance diet as tolerated ESRD: Nephrology following. Continue HD. Avoid nephrotoxins and renally adjust medications DM: Fair control. No change. HTN: Stable. We will continue to monitor and adjust meds as needed Hyperkalemia: Mild. Secondary to the ESRD. N/V: Recurred, but mild. Has been able to keep some PO's down. Disposition: According to her daughter Judi. She says the patient's is 20 years her senior and would be high risk if he got Covid. Therefore, they do not feel she would be able to return home as he is the only one there to help her. Discussed with CM. May need SNF. Awaiting acceptance patient can be discharged once accepted to SNF patient today. Stated that she would prefer to go home will talk to family hopefully home versus SNF in the next 24 hours
[2020-04-26] MEDS: Insulin Glargine 10 UNITS in Pre-Filled Syringe 1 EACH SC SCH (22:37)
[2020-04-27] MEDS: Piperacillin/Tazobactam 2.25 GM in Sodium Chloride 0.9% 100 ML IVPB SCH ×3 (04:51→22:35)
[2020-04-27 06:55] LABS: #Basophils 0.1 thou/uL (0.0-0.2); #Lymphocytes 1.5 thou/uL (1.20-3.40); #Neutrophils 8.5 thou/uL (1.40-6.50); %Basophils 0.5 % (0.0-1.0); %Eosinophils 0.4 % (0.0-10.0); %Lymphocytes 13.5 % (21.0-51.0); %Monocytes 9.3 % (0.0-10.0); %Neutrophils 76.4 % (42.0-75.0); Hemoglobin 9.7 g/dL (12.0-16.0); Mean Corpuscular HGB CONC 32.4 g/dL (32.0-36.0); Mean Corpuscular Hemoglobin 32.1 pg (27.0-31.0); Mean Platelet Volume 7.5 fL (7.4-10.4); Platelet Count 299 thou/uL (130-400); RBC Distribution Width 14.9 % (11.5-14.5); Red Blood Cell (RBC) Count 3.03 mill/uL (4.20-5.40); White Blood Cell (WBC) Count 11.1 thou/uL (4.8-10.8)
[2020-04-27 07:14] LABS: Anion Gap 16 mmol/L (10-20); BUN (Urea Nitrogen) 17 mg/dL (9.8-20.1); Calc. Creatinine Clearance 14 mL/min (70-130); Calcium 8.6 mg/dL (7.8-10.44); Carbon Dioxide 27 mmol/L (23-31); Chloride 95 mmol/L (98-107); Estimated GFR-MDRD 9; Glucose 80 mg/dL (80-115); Potassium 4.3 mmol/L (3.5-5.1); Sodium 134 mmol/L (136-145)
[2020-04-27] MEDS: Heparin 5,000 UNITS/ML VIAL SC SCH ×3 (08:04→19:59)
[2020-04-27] MEDS: Metoprolol Tartrate 25 MG TAB PO SCH ×2 (08:05→19:59)
[2020-04-27] MEDS: Ferrous Sulfate 325 MG TAB PO SCH ×3 (08:05→16:15)
[2020-04-27] MEDS: Calcium Acetate 667 MG CAP PO SCH ×3 (08:05→16:15)
[2020-04-27] MEDS: Aspirin 81 mg Enteric Coated Tablet PO SCH (08:05)
[2020-04-27] MEDS: Lisinopril 10 MG TAB PO SCH (08:06)
[2020-04-27] MEDS: hydrALAZINE 25 MG TAB PO SCH ×3 (08:06→19:59)
[2020-04-27] MEDS: Pantoprazole 40 MG VIAL IVP SCH ×2 (08:06→19:59)
--- NOTE | 2020-04-27 10:18 | PDOC.HOSPP ---
- Subjective Encounter Date: 04/27/20 Subjective: Patient seen and examined bedside this morning resting in no acute distress denies any nausea vomiting tolerating more p.o. intake today no fever chills and no shortness of breath currently saturating well on room air - Objective Vital Signs & Weight: Vital Signs (12 hours) Temp Pulse Resp BP Pulse Ox 04/27/20 08:06 70 04/27/20 08:00 98.4 F 70 16 148/69 H 95 04/27/20 05:06 98.4 F 70 18 132/65 96 04/26/20 23:00 100 04/26/20 22:32 97.9 F 80 18 131/72 100 Weight Admit Weight 174 lb 4.8 oz Weight 162 lb I&O: 04/26/20 04/27/20 04/28/20 06:59 06:59 06:59 Intake Total 1350 1080 Output Total 200 Balance 1350 880 Result Diagrams: 04/27/20 06:35 04/27/20 06:35 Additional Labs: Accuchecks 04/27/20 04/26/20 04/26/20 05:00 22:47 17:42 POC Glucose 91 107 98 04/26/20 12:19 POC Glucose 120 H Hospitalist ROS - Medication Medications: Active Medications Generic Name Dose Route Start Last Admin Trade Name Ilana PRN Reason Stop Dose Admin Acetaminophen 650 mg 04/15/20 20:11 04/26/20 05:00 Tylenol PO 650 mg Q4H PRN Administration Headache/Fever/Mild Pain (1-3) Acetaminophen 650 mg 04/15/20 20:11 04/19/20 01:05 Tylenol [place] 650 mg Q4H PRN Administration Headache/Fever/Mild Pain (1-3) Aspirin 81 mg 04/16/20 09:00 04/27/20 08:05 Ecotrin PO 81 mg DAILY JONATHAN Administration Calcium Acetate 1,334 mg 04/24/20 12:00 04/27/20 08:05 Phoslo PO 1,334 mg TID-WM JONATHAN Administration Epoetin Marcelo-epbx 7,500 unit 04/16/20 08:15 04/23/20 08:42 Retacrit SC 7,500 unit Q7D JONATHAN Administration Ferrous Sulfate 325 mg 04/16/20 08:00 04/27/20 08:05 Feosol PO 325 mg TID-WM JONATHAN Administration Heparin Sodium (Porcine) 5,000 units 04/17/20 21:00 04/27/20 08:04 Heparin SC 5,000 units TID JONATHAN Administration Hydralazine HCl 50 mg 04/15/20 21:00 04/27/20 08:06 Apresoline PO 50 mg TID JONATHAN Administration Insulin Glargine 10 units/ 0.1 mls @ 0 mls/hr 04/15/20 21:00 04/26/20 22:37 Miscellaneous Medication SC 0.1 mls HS JONATHAN Administration Promethazine HCl 25 mg/ Sodium 51 mls @ 204 mls/hr 04/19/20 04:32 04/23/20 05 :10 Chloride IVPB 51 mls Q6H PRN Administration Nausea Piperacillin Sod/Tazobactam 100 mls @ 200 mls/hr 04/19/20 22:00 04/27/20 04: 51 Sod 2.25 gm/ Sodium Chloride IVPB 100 mls Q8HR JONATHAN Administration Insulin Human Lispro 0 units 04/15/20 20:17 04/21/20 12:51 Humalog SC 2 unit .MILD SLIDING SCALE PRN Administration Mild Correctional Scale Isosorbide Mononitrate 15 mg 04/16/20 09:00 04/27/20 08:05 Imdur Er PO 15 mg DAILY [facility] Administration Lisinopril 10 mg 04/16/20 09:00 04/27/20 08:06 Zestril PO 10 mg DAILY JONATHAN Administration Metoprolol Tartrate 25 mg 04/15/20 21:00 04/27/20 08:05 Lopressor PO 25 mg BID JONATHAN Administration Morphine Sulfate 2 mg 04/18/20 11:47 04/22/20 02:20 Morphine Sulfate SLOW IVP 2 mg Q4H PRN Administration Moderate to Severe Pain (6-10) Ondansetron HCl 4 mg 04/15/20 20:11 04/26/20 23:03 Zofran IVP 4 mg Q6H PRN Administration Nausea/Vomiting Pantoprazole Sodium 40 mg 04/18/20 21:00 04/27/20 08:06 Protonix IVP 40 mg Q12HR JONATHAN Administration - Exam General Appearance: NAD Eye: PERRL ENT: normocephalic atraumatic Neck: supple Heart: RRR Respiratory: CTAB Gastrointestinal: soft Hosp A/P (1) COVID-19 Code(s): U07.1 - COVID-19 Status: Acute (2) Acute acalculous cholecystitis Code(s): K81.0 - ACUTE CHOLECYSTITIS Status: Acute (3) ESRD (end stage renal disease) on dialysis Code(s): N18.6 - END STAGE RENAL DISEASE; Z99.2 - DEPENDENCE ON RENAL DIALYSIS Status: Acute (4) Abdominal pain Code(s): R10.9 - UNSPECIFIED ABDOMINAL PAIN Status: Acute Qualifiers: Abdominal location: lower abdomen, unspecified Qualified Code(s): R10.30 - Lower abdominal pain, unspecified (5) CHF (congestive heart failure) Code(s): I50.9 - HEART FAILURE, UNSPECIFIED Status: Acute (6) Diabetic ulcer of right foot associated with diabetes mellitus due to underlying condition Code(s): E08.621 - DIABETES MELLITUS DUE TO UNDERLYING CONDITION W FOOT ULCER; L97.519 - NON-PRS CHRONIC ULCER OTH PRT RIGHT FOOT W UNSP SEVERITY Status: Acute (7) HTN (hypertension) Code(s): I10 - ESSENTIAL (PRIMARY) HYPERTENSION Status: Chronic Qualifiers: - Plan Left fourth toe infarct: Left fourth toe is ischemic. Dr. Sepulveda consulted, performed angioplasty and stenting to the vasculature of the left lower extremity. Tolerated well. Does not appear to have any significant infection in this area. Will allow the toe to progress naturally. Continue with pain management and monitor for now, pt stable pain under control continue to monitor for now COVID-19 infection: This patient has a positive COVID test which was performed for preoperative screening. She has mild oxygen requirements. She did not meet criteria for antiviral therapy. She has not had any dexamethasone given her cholecystitis and cholecystectomy. Patient remained afebrile her symptoms appears to be stable sats good on room air Acute acalculous cholecystitis: S/P lap emmie on 04/20. Pain under control Denied any nausea vomiting today tolerating p.o. intake continue Zofran PRN ESRD: Nephrology following. Continue HD. Avoid nephrotoxins and renally adjust medications DM: Fair control. No change. HTN: Stable. We will continue to monitor and adjust meds as needed Hyperkalemia: Mild. Secondary to the ESRD. N/V: Recurred, but mild. Has been able to keep some PO's down. Disposition: According to her daughter Judi. She says the patient's is 20 years her senior and would be high risk if he got Covid. Therefore, they do not feel she would be able to return home as he is the only one there to help her. Discussed with CM. [place] Patient currently awaiting SNF placement
[2020-04-27] MEDS: HumaLOG 300 UNITS/3 ML VIAL SC PRN (17:30)
[2020-04-27] MEDS: Insulin Glargine 10 UNITS in Pre-Filled Syringe 1 EACH SC SCH (20:16)
[2020-04-28] MEDS: Piperacillin/Tazobactam 2.25 GM in Sodium Chloride 0.9% 100 ML IVPB SCH ×3 (05:25→21:45)
[2020-04-28 06:05] LABS: #Lymphocytes 1.7 thou/uL (1.20-3.40); #Monocytes 0.8 thou/uL (0.11-0.59); #Neutrophils 7.3 thou/uL (1.40-6.50); %Basophils 0.5 % (0.0-1.0); %Eosinophils 0.4 % (0.0-10.0); %Lymphocytes 16.7 % (21.0-51.0); %Monocytes 8.5 % (0.0-10.0); %Neutrophils 73.9 % (42.0-75.0); Hemoglobin 8.8 g/dL (12.0-16.0); Mean Corpuscular HGB CONC 31.7 g/dL (32.0-36.0); Mean Corpuscular Hemoglobin 30.8 pg (27.0-31.0); Mean Corpuscular Volume 97.4 fL (78.0-98.0); Mean Platelet Volume 7.6 fL (7.4-10.4); Platelet Count 290 thou/uL (130-400); RBC Distribution Width 15.1 % (11.5-14.5); Red Blood Cell (RBC) Count 2.87 mill/uL (4.20-5.40); White Blood Cell (WBC) Count 9.9 thou/uL (4.8-10.8)
[2020-04-28 06:25] LABS: Anion Gap 16 mmol/L (10-20); BUN (Urea Nitrogen) 31 mg/dL (9.8-20.1); Calc. Creatinine Clearance 10 mL/min (70-130); Carbon Dioxide 27 mmol/L (23-31); Chloride 94 mmol/L (98-107); Estimated GFR-MDRD 6; Glucose 141 mg/dL (80-115); Potassium 3.7 mmol/L (3.5-5.1); Sodium 133 mmol/L (136-145)
[2020-04-28] MEDS: Aspirin 81 mg Enteric Coated Tablet PO SCH (09:56)
[2020-04-28] MEDS: Calcium Acetate 667 MG CAP PO SCH ×3 (09:56→18:42)
[2020-04-28] MEDS: Ferrous Sulfate 325 MG TAB PO SCH ×3 (09:57→18:42)
[2020-04-28] MEDS: Heparin 5,000 UNITS/ML VIAL SC SCH ×3 (09:58→21:44)
[2020-04-28] MEDS: hydrALAZINE 25 MG TAB PO SCH ×3 (09:58→21:44)
[2020-04-28] MEDS: Metoprolol Tartrate 25 MG TAB PO SCH ×2 (09:58→21:44)
[2020-04-28] MEDS: Lisinopril 10 MG TAB PO SCH (09:58)
[2020-04-28] MEDS: Pantoprazole 40 MG VIAL IVP SCH ×2 (09:59→21:45)
--- NOTE | 2020-04-28 11:00 | PDOC.HOSPP ---
- Subjective Encounter Date: 04/28/20 (f/u covid infection) Encounter Time: 10:59 Subjective: Pt with nausea this am - denies any abd pain. Reports she was able to take breakfast. Clear fluid in emesis basin. She denies any cp/shortness of breath. - Objective Vital Signs & Weight: Weight Admit Weight 174 lb 4.8 oz Weight 162 lb I&O: 04/27/20 04/28/20 04/29/20 06:59 06:59 06:59 Intake Total 1080 1550 Output Total 200 Balance 880 1550 Result Diagrams: 04/28/20 05:48 04/28/20 05:48 Additional Labs: Accuchecks 04/28/20 04/27/20 04/27/20 05:10 20:09 16:47 POC Glucose 158 H 152 H 166 H 04/27/20 13:11 POC Glucose 121 H Hospitalist ROS - Medication Medications: Active Medications Generic Name Dose Route Start Last Admin Trade Name Freq PRN Reason Stop Dose Admin Acetaminophen 650 mg 04/15/20 20:11 04/26/20 05:00 Tylenol PO 650 mg Q4H PRN Administration Headache/Fever/Mild Pain (1-3) Acetaminophen 650 mg 04/15/20 20:11 04/19/20 01:05 Tylenol [place] 650 mg Q4H PRN Administration Headache/Fever/Mild Pain (1-3) Aspirin 81 mg 04/16/20 09:00 04/27/20 08:05 Ecotrin PO 81 mg DAILY JONATHAN Administration Calcium Acetate 1,334 mg 04/24/20 12:00 04/27/20 16:15 Phoslo PO 1,334 mg TID- JONATHAN Administration Epoetin Marcelo-epbx 7,500 unit 04/16/20 08:15 04/23/20 08:42 Retacrit SC 7,500 unit Q7D JONATHAN Administration Ferrous Sulfate 325 mg 04/16/20 08:00 04/27/20 16:15 Feosol PO 325 mg TID-WM JONATHAN Administration Heparin Sodium (Porcine) 5,000 units 04/17/20 21:00 04/27/20 19:59 Heparin SC 5,000 units TID JONATHAN Administration Hydralazine HCl 50 mg 04/15/20 21:00 04/27/20 19:59 Apresoline PO 50 mg TID JONATHAN Administration Insulin Glargine 10 units/ 0.1 mls @ 0 mls/hr 04/15/20 21:00 04/27/20 20:16 Miscellaneous Medication SC 0.1 mls HS JONATHAN Administration Promethazine HCl 25 mg/ Sodium 51 mls @ 204 mls/hr 04/19/20 04:32 04/23/20 05 :10 Chloride IVPB 51 mls Q6H PRN Administration Nausea Piperacillin Sod/Tazobactam 100 mls @ 200 mls/hr 04/19/20 22:00 04/28/20 05: 25 Sod 2.25 gm/ Sodium Chloride IVPB 100 mls Q8HR JONATHAN Administration Insulin Human Lispro 0 units 04/15/20 20:17 04/27/20 17:30 Humalog SC 2 unit .MILD SLIDING SCALE PRN Administration Mild Correctional Scale Isosorbide Mononitrate 15 mg 04/16/20 09:00 04/27/20 08:05 Imdur Er PO 15 mg DAILY JONATHAN Administration Lisinopril 10 mg 04/16/20 09:00 04/27/20 08:06 Zestril PO 10 mg DAILY JONATHAN Administration Metoprolol Tartrate 25 mg 04/15/20 21:00 04/27/20 19:59 Lopressor PO 25 mg BID JONATHAN Administration Ondansetron HCl 4 mg 04/15/20 20:11 04/26/20 23:03 Zofran IVP 4 mg Q6H PRN Administration Nausea/Vomiting Pantoprazole Sodium 40 mg 04/18/20 21:00 04/27/20 19:59 Protonix IVP 40 mg Q12HR JONATHAN Administration - Exam General Appearance: NAD Heart: RRR, no murmur Respiratory: no wheezes, no rales, no ronchi Gastrointestinal: soft, non-tender, non-distended, normal bowel sounds Extremities: no cyanosis Extremities - other findings: left 4th toe dry/black/firm. Musculoskeletal: normal tone Psychiatric: normal affect Hosp A/P (1) Acute acalculous cholecystitis Code(s): K81.0 - ACUTE CHOLECYSTITIS Status: Resolved (2) COVID-19 Code(s): U07.1 - COVID-19 Status: Acute (3) ESRD (end stage renal disease) on dialysis Code(s): N18.6 - END STAGE RENAL DISEASE; Z99.2 - DEPENDENCE ON RENAL DIALYSIS Status: Chronic (4) CHF (congestive heart failure) Code(s): I50.9 - HEART FAILURE, UNSPECIFIED Status: Chronic Qualifiers: Heart failure type: unspecified (5) Diabetic ulcer of right foot associated with diabetes mellitus due to underlying condition Code(s): E08.621 - DIABETES MELLITUS DUE TO UNDERLYING CONDITION W FOOT ULCER; L97.519 - NON-PRS CHRONIC ULCER OTH PRT RIGHT FOOT W UNSP SEVERITY Status: Chronic Qualifiers: Diabetic foot ulcer location: toe (6) Nausea Code(s): R11.0 - NAUSEA Status: Acute (7) DM type 2 (diabetes mellitus, type 2) Status: Chronic Qualifiers: Diabetes mellitus complication status: with kidney complications Diabetes mellitus complication detail: with chronic kidney disease Chronic kidney disease stage: on chronic dialysis (8) HTN (hypertension) Code(s): I10 - ESSENTIAL (PRIMARY) HYPERTENSION Status: Chronic Qualifiers: - Plan 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 Sepulveda - by chart review - allow toe to progress naturally - has been on Zosyn since 04/19 - will ask Dr. Snider how long abx are indicated. COVID 19 - overall doing well. She was not a candidate for antiviral therapy. Acute acalculous cholecystitis - s/p lap emmie on 04/20 - nausea today - monitor, benign abd exam ESRD on HD - appreciate Dr. Monk following and arranging dialysis DM - controlled - continue current medds HTN - stable - continue current meds dvt prophy - heparin gi prophy - not indicated, taking PO code status full reviewed plan of care with patient, no questions or further needs. Pt is awaiting SNF placement, and appears stable for discharge when this is arranged. Per Dr. Elias's note yesterday (04/27) - pt's at home high risk for COVID, so d/c to home not considered a possibility.
[2020-04-28] MEDS: Ondansetron ODT 4 MG TAB PO PRN (14:08)
--- NOTE | 2020-04-28 14:22 | PRG ---
DATE OF SERVICE: 04/28/2020 SUBJECTIVE: Anxious to go home, feeling well, had a bowel movement. No abdominal pain. No pain in the left foot. No cough. No dyspnea. OBJECTIVE: VITAL SIGNS: She has been afebrile. Other vital signs are normal. She is saturating 97% on room air. LUNGS: Clear. ABDOMEN: Slightly distended, but not tender. The ports for the laparoscopic procedure are all looking good. EXTREMITIES: She has a dry gangrene of the left fourth toe. LABORATORY DATA: White cell count 9.9, hemoglobin 8.8, platelets 290. Creatinine 6.59. ASSESSMENT AND DISCUSSION: 1. Type-2 diabetes. 2. End-stage renal disease. 3. Peripheral vascular disease. 4. Gangrene of fourth toe. 5. Acalculous cholecystitis, status post resection. 6. COVID pneumonia with a fairly benign clinical course and now likely resolved. The patient is eligible for discharge planning. No antibiotics recommended at this point in time. The fourth toe should marginate and fall off without surgical intervention. Job ID: [id number]
[2020-04-28] MEDS: Insulin Glargine 10 UNITS in Pre-Filled Syringe 1 EACH SC SCH (21:45)
--- NOTE | 2020-04-29 09:21 | PRG ---
DATE OF SERVICE: 04/29/2020 SUBJECTIVE: Ms. Saldivar is a 59-year-old female with ESRD and was admitted due to left foot ischemia. She underwent revascularization-stent placement. During the workup, she was found to have a COVID-19 positivity. We are following her up for management of her ESRD. She is undergoing hemodialysis. OBJECTIVE: VITAL SIGNS: Blood pressure is 145/69, heart rate 71, respiratory rate 16, temperature 98.1, and O2 saturation 98%. GENERAL: The patient is awake, alert, and comfortable, not in distress. SKIN: Adequate turgor. HEENT: Pinkish conjunctivae. Anicteric sclerae. NECK: No neck mass. No carotid bruits. No JVD. CHEST: No deformities. LUNGS: Clear breath sounds. No wheezing. No crackles. HEART: Normal sinus rhythm. No murmur. No gallops. No rubs. ABDOMEN: Globular, soft, and nontender. No masses. EXTREMITIES: Positive for right BKA. Left foot, no erythema. No swelling. MEDICATIONS: Medications of April 29, 2020, were reviewed. LABORATORY DATA: Laboratories of April 28, 2020; white count 9.9, hemoglobin 8.8. Sodium 133, potassium 3.7, chloride 94, carbon dioxide 37, BUN 31, creatinine 6.59, calcium 8, and magnesium 2. On April 29, 2020, glucose 120. ASSESSMENT AND PLAN: 1. End-stage renal disease, stable, tolerating current hemodialysis regimen. We will continue current Wednesday, Wednesday, and Wednesday dialysis. Fluid removal as tolerated. Adjusting potassium bath. 2. COVID-19 positivity-supportive care. The patient is clinically asymptomatic. 3. Anemia, continuing weekly Epogen regimen 7500 units subcu q.7 days. Job ID: [id number]
[2020-04-29] MEDS: Calcium Acetate 667 MG CAP PO SCH ×3 (10:58→15:38)
[2020-04-29] MEDS: Ferrous Sulfate 325 MG TAB PO SCH ×3 (10:58→15:37)
[2020-04-29] MEDS: Lisinopril 10 MG TAB PO SCH (11:07)
[2020-04-29] MEDS: Aspirin 81 mg Enteric Coated Tablet PO SCH (11:08)
[2020-04-29] MEDS: hydrALAZINE 25 MG TAB PO SCH ×3 (11:08→20:55)
[2020-04-29] MEDS: Metoprolol Tartrate 25 MG TAB PO SCH ×2 (11:09→20:55)
[2020-04-29] MEDS: Heparin 5,000 UNITS/ML VIAL SC SCH ×3 (11:09→20:55)
--- NOTE | 2020-04-29 18:47 | PDOC.HOSPP ---
- Subjective Encounter Date: 04/29/20 Encounter Time: 17:43 Subjective: Patient states she feels well and is without any complaints. States her family has been discussing plans for her to go home vs. rehab. Upon further discussion with [facility], patient is COVID +, therefore unable to go to rehab. The reason she needs placement, is because her who is her respiratory care program director has comorbidities, therefore family concerned about him being exposed to COVID. It has been 10 days since patient was tested and positive. The fact that she has ESRD and on dialysis MWF further limits the possible facilities for placement. She is s/p revascularization of left 4th toe. She denies any pain. - Objective Vital Signs & Weight: Vital Signs (12 hours) Temp Pulse Resp BP BP Pulse Ox 04/29/20 16:00 98.2 F 80 18 125/69 97 04/29/20 15:37 76 04/29/20 12:00 98.1 F 76 16 133/61 98 04/29/20 11:08 71 145/69 H 04/29/20 11:07 145/69 H 04/29/20 08:00 98.1 F 71 16 145/69 H 98 Weight Admit Weight 174 lb 4.8 oz Weight 162 lb I&O: 04/28/20 04/29/20 04/30/20 06:59 06:59 06:59 Intake Total 1550 1100 650 Balance 1550 1100 650 Result Diagrams: 04/28/20 05:48 04/28/20 05:48 Additional Labs: Accuchecks 04/29/20 04/29/20 04/29/20 15:50 11:27 06:54 POC Glucose 144 H 98 120 H 04/28/20 21:56 POC Glucose 197 H Radiology Reviewed by me: Yes EKG Reviewed by me: Yes Hospitalist ROS - Review of Systems Constitutional: denies: fever, chills, sweats, weakness, malaise, other Eyes: denies: pain, vision change, conjunctivae inflammation, eyelid inflammation, redness, other ENT: denies: ear pain, ear discharge, nose pain, nose discharge, nose congestion , mouth pain, mouth swelling, throat pain, throat swelling, other Respiratory: denies: cough, dry, shortness of breath, hemoptysis, SOB with excertion, pleuritic pain, sputum, wheezing, other Cardiovascular: denies: chest pain, palpitations, orthopnea, paroxysmal noc. dyspnea, edema, light headedness, other Gastrointestinal: denies: nausea, vomiting, abdominal pain, diarrhea, constipation, melena, hematochezia, other Genitourinary: denies: dysuria, frequency, incontinence, hematuria, retention, other Musculoskeletal: denies: neck pain, shoulder pain, arm pain, back pain, hand pain, leg pain, foot pain, other Skin: denies: rash, lesions, nickolas, bruising, other - Medication Medications: Active Medications Generic Name Dose Route Start Last Admin Trade Name Freq PRN Reason Stop Dose Admin Acetaminophen 650 mg 04/15/20 20:11 04/26/20 05:00 Tylenol PO 650 mg Q4H PRN Administration Headache/Fever/Mild Pain (1-3) Acetaminophen 650 mg 04/15/20 20:11 04/19/20 01:05 Tylenol [place] 650 mg Q4H PRN Administration Headache/Fever/Mild Pain (1-3) Aspirin 81 mg 04/16/20 09:00 04/29/20 11:08 Ecotrin PO 81 mg DAILY JONATHAN Administration Calcium Acetate 1,334 mg 04/24/20 12:00 04/29/20 15:38 Phoslo PO 1,334 mg TID-WM JONATHAN Administration Epoetin Marcelo-epbx 7,500 unit 04/16/20 08:15 04/23/20 08:42 Retacrit SC 7,500 unit Q7D JONATHAN Administration Ferrous Sulfate 325 mg 04/16/20 08:00 04/29/20 15:37 Feosol PO 325 mg TID-WM JONATHAN Administration Heparin Sodium (Porcine) 5,000 units 04/17/20 21:00 04/29/20 15:37 Heparin SC 5,000 units TID JONATHAN Administration Hydralazine HCl 50 mg 04/15/20 21:00 04/29/20 15:37 Apresoline PO 50 mg TID JONATHAN Administration Insulin Glargine 10 units/ 0.1 mls @ 0 mls/hr 04/15/20 21:00 04/28/20 21:45 Miscellaneous Medication SC 0.1 mls HS JONATHAN Administration Promethazine HCl 25 mg/ Sodium 51 mls @ 204 mls/hr 04/19/20 04:32 04/23/20 05 :10 Chloride IVPB 51 mls Q6H PRN Administration Nausea Insulin Human Lispro 0 units 04/15/20 20:17 04/27/20 17:30 Humalog SC 2 unit .MILD SLIDING SCALE PRN Administration Mild Correctional Scale Isosorbide Mononitrate 15 mg 04/16/20 09:00 04/29/20 11:08 Imdur Er PO 15 mg DAILY JONATHAN Administration Lisinopril 10 mg 04/16/20 09:00 04/29/20 11:07 Zestril PO 10 mg DAILY JONATHAN Administration Metoprolol Tartrate 25 mg 04/15/20 21:00 04/29/20 11:09 Lopressor PO 25 mg BID JONATHAN Administration Ondansetron HCl 4 mg 04/15/20 20:11 04/28/20 14:08 Zofran Odt PO 4 mg Q6H PRN Administration Nausea/Vomiting Ondansetron HCl 4 mg 04/15/20 20:11 04/26/20 23:03 Zofran IVP 4 mg Q6H PRN Administration Nausea/Vomiting Pantoprazole Sodium 40 mg 04/29/20 09:00 04/29/20 11:08 Protonix PO 40 mg BID JONATHAN Administration - Exam General Appearance: NAD, awake alert Eye: PERRL, anicteric sclera ENT: normocephalic atraumatic, no oropharyngeal lesions, moist mucosa Neck: supple, no lymphadenopathy Heart: RRR, no murmur, no gallops, no rubs, normal peripheral pulses Respiratory: CTAB, no wheezes, no rales, no ronchi, normal chest expansion Gastrointestinal: soft, non-tender, non-distended, normal bowel sounds, no guarding, no rigidity Extremities: no cyanosis, no clubbing, no edema Skin: normal turgor Skin - other findings: necrotic appearance to left 4th toe Musculoskeletal - other findings: right BKA. Psychiatric: normal affect, normal behavior, A&O x 3 Hosp A/P (1) COVID-19 Code(s): U07.1 - COVID-19 Status: Acute (2) Ischemic toe Code(s): I99.8 - OTHER DISORDER OF CIRCULATORY SYSTEM Status: Acute (3) ESRD (end stage renal disease) on dialysis Code(s): N18.6 - END STAGE RENAL DISEASE; Z99.2 - DEPENDENCE ON RENAL DIALYSIS Status: Chronic (4) CHF (congestive heart failure) Code(s): I50.9 - HEART FAILURE, UNSPECIFIED Status: Chronic Qualifiers: Heart failure type: unspecified (5) DM type 2 (diabetes mellitus, type 2) Status: Chronic Qualifiers: Diabetes mellitus complication status: with kidney complications Diabetes mellitus complication detail: with chronic kidney disease Chronic kidney disease stage: on chronic dialysis (6) HTN (hypertension) Code(s): I10 - ESSENTIAL (PRIMARY) HYPERTENSION Status: Chronic Qualifiers: - Plan old records reviewed/req Medically cleared for discharge. Awaiting placement given COVD+, lives with who is high risk and ESRD on HD (MWF). Per [facility], looking into options. Will obtain repeat COVID testing to see if negative. She tested positive 10 dyas ago.
[2020-04-29] MEDS: Insulin Glargine 10 UNITS in Pre-Filled Syringe 1 EACH SC SCH (20:55)
[2020-04-29] MEDS: Acetaminophen 325 MG TAB PO PRN (23:06)
[2020-04-30 06:37] LABS: #Eosinphils 0.1 thou/uL (0.0-0.7); #Lymphocytes 1.7 thou/uL (1.20-3.40); #Neutrophils 7.7 thou/uL (1.40-6.50); %Basophils 0.3 % (0.0-1.0); %Eosinophils 0.5 % (0.0-10.0); %Lymphocytes 16.2 % (21.0-51.0); %Monocytes 9.7 % (0.0-10.0); %Neutrophils 73.2 % (42.0-75.0); Hemoglobin 9.5 g/dL (12.0-16.0); Mean Corpuscular HGB CONC 32.1 g/dL (32.0-36.0); Mean Corpuscular Hemoglobin 31.4 pg (27.0-31.0); Mean Corpuscular Volume 97.9 fL (78.0-98.0); Mean Platelet Volume 7.8 fL (7.4-10.4); Platelet Count 315 thou/uL (130-400); RBC Distribution Width 15.4 % (11.5-14.5); Red Blood Cell (RBC) Count 3.03 mill/uL (4.20-5.40); White Blood Cell (WBC) Count 10.6 thou/uL (4.8-10.8)
[2020-04-30 07:04] LABS: Anion Gap 17 mmol/L (10-20); BUN (Urea Nitrogen) 21 mg/dL (9.8-20.1); Calc. Creatinine Clearance 12 mL/min (70-130); Calcium 8.6 mg/dL (7.8-10.44); Carbon Dioxide 23 mmol/L (23-31); Chloride 95 mmol/L (98-107); Estimated GFR-MDRD 8; Glucose 103 mg/dL (80-115); Potassium 3.5 mmol/L (3.5-5.1); Sodium 131 mmol/L (136-145)
--- NOTE | 2020-04-30 08:04 | PDOC.HOSPP ---
- Subjective Encounter Date: 04/30/20 Encounter Time: 11:30 Subjective: Patient feeling well today. No cough or SOB. Moving around some with PT but doesn't have her RLE prosthesis. - Objective Vital Signs & Weight: Vital Signs (12 hours) Pulse 04/29/20 20:55 80 Weight Admit Weight 174 lb 4.8 oz Weight 162 lb I&O: 04/29/20 04/30/20 05/01/20 06:59 06:59 06:59 Intake Total 1100 1075 Balance 1100 1075 Result Diagrams: 04/30/20 06:23 04/30/20 06:23 Additional Labs: Accuchecks 04/30/20 04/29/20 04/29/20 05:16 21:05 15:50 POC Glucose 112 H 172 H 144 H 04/29/20 11:27 POC Glucose 98 Hospitalist ROS - Review of Systems Constitutional: denies: fever, chills Respiratory: denies: cough, shortness of breath Cardiovascular: denies: chest pain, palpitations Gastrointestinal: denies: nausea, vomiting - Medication Medications: Active Medications Generic Name Dose Route Start Last Admin Trade Name Freq PRN Reason Stop Dose Admin Acetaminophen 650 mg 04/15/20 20:11 04/29/20 23:06 Tylenol PO 650 mg Q4H PRN Administration Headache/Fever/Mild Pain (1-3) Acetaminophen 650 mg 04/15/20 20:11 04/19/20 01:05 Tylenol [place] 650 mg Q4H PRN Administration Headache/Fever/Mild Pain (1-3) Aspirin 81 mg 04/16/20 09:00 04/29/20 11:08 Ecotrin PO 81 mg DAILY JONATHAN Administration Calcium Acetate 1,334 mg 04/24/20 12:00 04/29/20 15:38 Phoslo PO 1,334 mg TID-WM JONATHAN Administration Epoetin Marcelo-epbx 7,500 unit 04/16/20 08:15 04/23/20 08:42 Retacrit SC 7,500 unit Q7D JONATHAN Administration Ferrous Sulfate 325 mg 04/16/20 08:00 04/29/20 15:37 Feosol PO 325 mg TID-WM JONATHAN Administration Heparin Sodium (Porcine) 5,000 units 04/17/20 21:00 04/29/20 20:55 Heparin SC 5,000 units TID JONATHAN Administration Hydralazine HCl 50 mg 04/15/20 21:00 04/29/20 20:55 Apresoline PO 50 mg TID JONATHAN Administration Insulin Glargine 10 units/ 0.1 mls @ 0 mls/hr 04/15/20 21:00 04/29/20 20:55 Miscellaneous Medication SC 0.1 mls HS JONATHAN Administration Promethazine HCl 25 mg/ Sodium 51 mls @ 204 mls/hr 04/19/20 04:32 04/23/20 05 :10 Chloride IVPB 51 mls Q6H PRN Administration Nausea Insulin Human Lispro 0 units 04/15/20 20:17 04/27/20 17:30 Humalog SC 2 unit .MILD SLIDING SCALE PRN Administration Mild Correctional Scale Isosorbide Mononitrate 15 mg 04/16/20 09:00 04/29/20 11:08 Imdur Er PO 15 mg DAILY JONATHAN Administration Lisinopril 10 mg 04/16/20 09:00 04/29/20 11:07 Zestril PO 10 mg DAILY JONATHAN Administration Metoprolol Tartrate 25 mg 04/15/20 21:00 04/29/20 20:55 Lopressor PO 25 mg BID JONATHAN Administration Ondansetron HCl 4 mg 04/15/20 20:11 04/28/20 14:08 Zofran Odt PO 4 mg Q6H PRN Administration Nausea/Vomiting Ondansetron HCl 4 mg 04/15/20 20:11 04/26/20 23:03 Zofran IVP 4 mg Q6H PRN Administration Nausea/Vomiting Pantoprazole Sodium 40 mg 04/29/20 09:00 04/29/20 20:54 Protonix PO 40 mg BID JONATHAN Administration - Exam General Appearance: NAD, awake alert ENT: moist mucosa Heart: RRR, no murmur, no gallops, no rubs Respiratory: CTAB, no wheezes, no rales, no ronchi Gastrointestinal: soft, non-tender, non-distended, normal bowel sounds Skin - other findings: right BKA Psychiatric: normal affect, normal behavior, A&O x 3 Hosp A/P (1) Ischemic toe Code(s): I99.8 - OTHER DISORDER OF CIRCULATORY SYSTEM Status: Acute (2) COVID-19 Code(s): U07.1 - COVID-19 Status: Acute (3) ESRD (end stage renal disease) on dialysis Code(s): N18.6 - END STAGE RENAL DISEASE; Z99.2 - DEPENDENCE ON RENAL DIALYSIS Status: Chronic (4) DM type 2 (diabetes mellitus, type 2) Status: Chronic Qualifiers: Diabetes mellitus complication status: with kidney complications Diabetes mellitus complication detail: with chronic kidney disease Chronic kidney disease stage: on chronic dialysis (5) Diastolic congestive heart failure Code(s): I50.30 - UNSPECIFIED DIASTOLIC (CONGESTIVE) HEART FAILURE Status: Chronic Qualifiers: (6) HLD (hyperlipidemia) Code(s): E78.5 - HYPERLIPIDEMIA, UNSPECIFIED Status: Chronic Qualifiers: Hyperlipidemia type: unspecified Qualified Code(s): E78.5 - Hyperlipidemia , unspecified (7) HTN (hypertension) Code(s): I10 - ESSENTIAL (PRIMARY) HYPERTENSION Status: Chronic Qualifiers: - Plan 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 Sepulveda - by chart review - allow toe to progress naturally - Kayleensyn d/c'd - Dr. Snider stated no need for further abx, toe will fall off spontaneously. COVID 19 - overall doing well. She was not a candidate for antiviral therapy. Repeat testing pending Acute acalculous cholecystitis - s/p lap emmie on 04/20 - nausea today - monitor, benign abd exam ESRD on HD - appreciate Dr. Monk following and arranging dialysis DM - controlled - continue current medds HTN - stable - continue current meds dvt prophy - heparin gi prophy - not indicated, taking PO code status full reviewed plan of care with patient, no questions or further needs. Pt's at home high risk for COVID, so d/c to home not considered a possibility. However, placement with Covid-19 is difficult. Recheck pending. If can get 2 negatives she may be able to be placed, or even go home which is what she wants to do.
[2020-04-30] MEDS: Calcium Acetate 667 MG CAP PO SCH ×3 (08:17→15:26)
[2020-04-30] MEDS: hydrALAZINE 25 MG TAB PO SCH ×3 (08:18→19:43)
[2020-04-30] MEDS: Ferrous Sulfate 325 MG TAB PO SCH ×3 (08:18→15:26)
[2020-04-30] MEDS: Aspirin 81 mg Enteric Coated Tablet PO SCH (08:18)
[2020-04-30] MEDS: Lisinopril 10 MG TAB PO SCH (08:19)
[2020-04-30] MEDS: Metoprolol Tartrate 25 MG TAB PO SCH ×2 (08:19→19:43)
[2020-04-30] MEDS: Heparin 5,000 UNITS/ML VIAL SC SCH ×3 (08:19→19:44)
[2020-04-30] MEDS: EPOETIN ALFA-EPBX (ESRD) 4,000 UNIT/ML VIAL SC SCH (12:43)
--- NOTE | 2020-04-30 17:01 | EKG ---
Test Reason : Blood Pressure : / mmHG Vent. Rate : 075 BPM Atrial Rate : 075 BPM P-R Int : 216 ms QRS Dur : 112 ms QT Int : 426 ms P-R-T Axes : 056 -65 058 degrees QTc Int : 475 ms Sinus rhythm with 1st degree A-V block Left axis deviation Minimal voltage criteria for LVH, may be normal variant Anteroseptal infarct , age undetermined Abnormal ECG Confirmed by SANTINO SINCLAIR ([id number]), editor magazine CAMILLA MUNGUIA ([id number]) on 04/30/2020 5:00:35 PM Referred By: Confirmed By:SANTINO SINCLAIR
[2020-04-30 17:04] LABS: SARS-CoV-2 MS2 Positive; SARS-CoV-2 N Gene Positive; SARS-CoV-2 S Gene Positive; SARS-CoV-2 orf1ab Positive
[2020-04-30] MEDS: Insulin Glargine 10 UNITS in Pre-Filled Syringe 1 EACH SC SCH (19:59)
[2020-04-30] MEDS: Acetaminophen 325 MG TAB PO PRN (22:40)
[2020-04-30] MEDS: Ondansetron ODT 4 MG TAB PO PRN (22:40)
[2020-05-01 05:39] LABS: #Eosinphils 0.1 thou/uL (0.0-0.7); #Lymphocytes 1.6 thou/uL (1.20-3.40); #Neutrophils 7.3 thou/uL (1.40-6.50); %Basophils 0.3 % (0.0-1.0); %Lymphocytes 16.1 % (21.0-51.0); %Monocytes 10.1 % (0.0-10.0); %Neutrophils 72.4 % (42.0-75.0); Hemoglobin 9.3 g/dL (12.0-16.0); Mean Corpuscular HGB CONC 31.2 g/dL (32.0-36.0); Mean Corpuscular Hemoglobin 30.5 pg (27.0-31.0); Mean Corpuscular Volume 97.5 fL (78.0-98.0); Mean Platelet Volume 7.6 fL (7.4-10.4); Platelet Count 321 thou/uL (130-400); RBC Distribution Width 15.6 % (11.5-14.5); Red Blood Cell (RBC) Count 3.06 mill/uL (4.20-5.40); White Blood Cell (WBC) Count 10.1 thou/uL (4.8-10.8)
[2020-05-01 06:03] LABS: Anion Gap 16 mmol/L (10-20); BUN (Urea Nitrogen) 33 mg/dL (9.8-20.1); Calc. Creatinine Clearance 10 mL/min (70-130); Calcium 8.9 mg/dL (7.8-10.44); Carbon Dioxide 27 mmol/L (23-31); Chloride 93 mmol/L (98-107); Estimated GFR-MDRD 6; Glucose 106 mg/dL (80-115); Potassium 3.4 mmol/L (3.5-5.1); Sodium 133 mmol/L (136-145)
[2020-05-01] MEDS: Aspirin 81 mg Enteric Coated Tablet PO SCH (07:32)
[2020-05-01] MEDS: Calcium Acetate 667 MG CAP PO SCH ×2 (07:32→11:44)
[2020-05-01] MEDS: hydrALAZINE 25 MG TAB PO SCH ×2 (07:32→14:40)
[2020-05-01] MEDS: Heparin 5,000 UNITS/ML VIAL SC SCH ×2 (07:32→14:41)
[2020-05-01] MEDS: Lisinopril 10 MG TAB PO SCH (07:33)
[2020-05-01] MEDS: Metoprolol Tartrate 25 MG TAB PO SCH (07:33)
[2020-05-01] MEDS: Ferrous Sulfate 325 MG TAB PO SCH ×2 (07:33→11:44)
[2020-05-01 08:36] VITALS: BP 121/62; TEMP 98.6
--- NOTE | 2020-05-01 08:46 | PDOC.HOSPP ---
- Subjective Encounter Date: 05/01/20 Encounter Time: 13:00 Subjective: Patient without complaints. Getting up with PT. Family to bring prosthesis. No fever/chills/cough. - Objective Vital Signs & Weight: Vital Signs (12 hours) Temp Pulse Resp BP BP Pulse Ox 05/01/20 08:00 98.6 F 76 18 121/62 96 05/01/20 07:33 145/69 H 05/01/20 07:32 84 04/30/20 23:42 98.4 F 84 18 128/64 95 Weight Admit Weight 174 lb 4.8 oz Weight 162 lb I&O: 04/30/20 05/01/20 05/02/20 06:59 06:59 06:59 Intake Total 1075 1225 Balance 1075 1225 Result Diagrams: 05/01/20 05:11 05/01/20 05:11 Additional Labs: Accuchecks 05/01/20 04/30/20 04/30/20 03:49 19:56 15:37 POC Glucose 144 H 155 H 133 H 04/30/20 11:15 POC Glucose 125 H Hospitalist ROS - Review of Systems Constitutional: denies: fever, chills Respiratory: denies: cough, shortness of breath Cardiovascular: denies: chest pain, palpitations Gastrointestinal: denies: nausea, vomiting, abdominal pain - Medication Medications: Active Medications Generic Name Dose Route Start Last Admin Trade Name Freq PRN Reason Stop Dose Admin Acetaminophen 650 mg 04/15/20 20:11 04/30/20 22:40 Tylenol PO 650 mg Q4H PRN Administration Headache/Fever/Mild Pain (1-3) Acetaminophen 650 mg 04/15/20 20:11 04/19/20 01:05 Tylenol ND 650 mg Q4H PRN Administration Headache/Fever/Mild Pain (1-3) Aspirin 81 mg 04/16/20 09:00 05/01/20 07:32 Ecotrin PO 81 mg DAILY JONATHAN Administration Calcium Acetate 1,334 mg 04/24/20 12:00 05/01/20 07:32 Phoslo PO 1,334 mg TID-WM JONATHAN Administration Calcium Carbonate 1,000 mg 04/15/20 20:11 04/30/20 22:40 Tums PO 1,000 mg Q4H PRN Administration Heartburn or Indigestion Epoetin Marcelo-epbx 7,500 unit 04/16/20 08:15 04/30/20 12:43 Retacrit SC 7,500 unit Q7D [facility] Administration Ferrous Sulfate 325 mg 04/16/20 08:00 05/01/20 07:33 Feosol PO 325 mg TID-WM JONATHAN Administration Heparin Sodium (Porcine) 5,000 units 04/17/20 21:00 05/01/20 07:32 Heparin SC 5,000 units TID JONATHAN Administration Hydralazine HCl 50 mg 04/15/20 21:00 05/01/20 07:32 Apresoline PO 50 mg TID [facility] Administration Insulin Glargine 10 units/ 0.1 mls @ 0 mls/hr 04/15/20 21:00 04/30/20 19:59 Miscellaneous Medication SC 0.1 mls HS [facility] Administration Promethazine HCl 25 mg/ Sodium 51 mls @ 204 mls/hr 04/19/20 04:32 04/23/20 05 :10 Chloride IVPB 51 mls Q6H PRN Administration Nausea Insulin Human Lispro 0 units 04/15/20 20:17 04/27/20 17:30 Humalog SC 2 unit .MILD SLIDING SCALE PRN Administration Mild Correctional Scale Isosorbide Mononitrate 15 mg 04/16/20 09:00 05/01/20 07:33 Imdur Er PO 15 mg DAILY [facility] Administration Lisinopril 10 mg 04/16/20 09:00 05/01/20 07:33 Zestril PO 10 mg DAILY [facility] Administration Metoprolol Tartrate 25 mg 04/15/20 21:00 05/01/20 07:33 Lopressor PO 25 mg BID [facility] Administration Ondansetron HCl 4 mg 04/15/20 20:11 04/30/20 22:40 Zofran Odt PO 4 mg Q6H PRN Administration Nausea/Vomiting Ondansetron HCl 4 mg 04/15/20 20:11 04/26/20 23:03 Zofran IVP 4 mg Q6H PRN Administration Nausea/Vomiting Pantoprazole Sodium 40 mg 04/29/20 09:00 05/01/20 07:33 Protonix PO 40 mg BID [facility] Administration - Exam General Appearance: NAD, awake alert ENT: moist mucosa Heart: RRR, no murmur, no gallops, no rubs Respiratory: CTAB, no wheezes, no rales, no ronchi Gastrointestinal: soft, non-tender, non-distended, normal bowel sounds Extremities - other findings: Right BKA, Left 4th toe black, no surrounding erythema or swelling Psychiatric: normal affect, normal behavior, A&O x 3 Hosp A/P (1) Ischemic toe Code(s): I99.8 - OTHER DISORDER OF CIRCULATORY SYSTEM Status: Acute (2) COVID-19 Code(s): U07.1 - COVID-19 Status: Acute (3) ESRD (end stage renal disease) on dialysis Code(s): N18.6 - END STAGE RENAL DISEASE; Z99.2 - DEPENDENCE ON RENAL DIALYSIS Status: Chronic (4) DM type 2 (diabetes mellitus, type 2) Status: Chronic Qualifiers: Diabetes mellitus complication status: with kidney complications Diabetes mellitus complication detail: with chronic kidney disease Chronic kidney disease stage: on chronic dialysis (5) Diastolic congestive heart failure Code(s): I50.30 - UNSPECIFIED DIASTOLIC (CONGESTIVE) HEART FAILURE Status: Chronic Qualifiers: (6) HLD (hyperlipidemia) Code(s): E78.5 - HYPERLIPIDEMIA, UNSPECIFIED Status: Chronic Qualifiers: Hyperlipidemia type: unspecified Qualified Code(s): E78.5 - Hyperlipidemia , unspecified (7) HTN (hypertension) Code(s): I10 - ESSENTIAL (PRIMARY) HYPERTENSION Status: Chronic Qualifiers: - Plan 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 Sepulveda - by chart review - allow toe to progress naturally - Zosyn d/c'd - Dr. Snider stated no need for further abx, toe will fall off spontaneously. COVID 19 - overall doing well. She was not a candidate for antiviral therapy. Repeat testing pending Acute acalculous cholecystitis - s/p lap emmie on 04/20 - monitor, benign abd exam ESRD on HD - appreciate Dr. Monk following and arranging dialysis DM - controlled - continue current medds HTN - stable - continue current meds dvt prophy - heparin gi prophy - not indicated, taking PO code status full reviewed plan of care with patient, no questions or further needs. Pt's at home high risk for COVID, so d/c to home not considered a possibility. Recheck still positive from 04/29/2020. Patient accepted to [facility] with Covid + status. Will d/c today.
--- NOTE | 2020-05-02 03:22 | DIS ---
DATE OF ADMISSION: 04/15/2020 DATE OF DISCHARGE: 05/01/2020 PRIMARY CARE PHYSICIAN: Yoana Rob, Nurse practitioner. REASON FOR ADMISSION: Foot pain with osteomyelitis and necrosis of the toe. DIAGNOSES AT DISCHARGE: 1. Ischemic fourth toe with dry gangrene eventually slough by itself. 2. Peripheral vascular disease, status post revascularization of the left lower extremity. 3. COVID-19 positive. 4. Acute acalculous cholecystitis, status post lap cholecystectomy. 5. End-stage renal disease, on hemodialysis. 6. Diabetes mellitus, type 2. 7. Hypertension. 8. Diastolic congestive heart failure, chronic. PROCEDURES PERFORMED: 1. X-ray of the left foot showing severe osteoporosis and focal area of osteolysis in the lateral head of the proximal phalanx, fourth toe, could represent an aggressive process. 2. Peripheral vascular angioplasty of the tibial artery on the left lower extremity. 3. CT abdomen and pelvis without contrast showing no CT evidence of urinary tract obstruction or calcification. Gallbladder distention is nonspecific and some atherosclerosis. 4. Abdominal ultrasound showing a markedly distended gallbladder with wall thickening and positive Tim sign, although without stones consistent with acalculous cholecystitis. 5. Laparoscopic cholecystectomy. CONSULTATIONS: 1. Nephrology, Dr. Monk. 2. General Surgery, Dr. Almonte as well as Dr. Gonzalez. 3. Cardiovascular Surgery, Dr. Sepulveda. 4. Infectious Disease, Dr. Snider. SUMMARY OF HOSPITAL COURSE: This is a 59-year-old female with end- stage renal disease and diabetes and peripheral vascular disease, who came in due to left-sided foot pain. She was found to have a necrotic fourth toe, was initially put on antibiotics. Dr. Sepulveda was consulted for a revascularization procedure. Dr. Snider was consulted and he determined that there was no actual infection. The fourth toe was already infarcted and that it will fall off naturally and he discontinued antibiotics. The patient did have abdominal pain during her hospitalization, had CT and ultrasounds done with the above results. She was diagnosed with acalculous cholecystitis. Dr. Almonte did take her gallbladder out preoperatively for the gallbladder surgery. She did have a COVID test done, which came back positive. The patient did not have any COVID symptoms during the hospital stay. She had a retest done on April 29, which was still positive. The patient was needing physical therapy. She does have a right [id number] amputation and then ischemia in her left foot. She was getting physical therapy in the hospital. 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 She would be discharged. She cannot be discharged with him, so eventually she was discharged to half-way facility at [facility], where they can take COVID positive patients. DISCHARGE MANAGEMENT: Discharged to [facility] at [facility]. ACTIVITY: As tolerated. DIET: Diabetic healthy heart diet with Nephro b.i.d. THERAPY: Occupational and physical therapy. FOLLOWUP: Follow up with primary care physician after out of SNF. DISCHARGE MEDICATIONS: 1. Acetaminophen as needed. 2. Aspirin 81 mg daily. 3. PhosLo 1334 mg 3 times a day. 4. Tums as needed. 5. Epoetin 7500 units subcu q.7 days. 6. Ferrous sulfate 325 mg 3 times a day. 7. Hydralazine 50 mg 3 times a day. 8. Lantus 10 units subcu at night. 9. Isosorbide mononitrate 15 mg p.o. daily. 10. Lisinopril 10 mg daily. 11. Metoclopramide 5 mg 3 times a day as needed for nausea and vomiting. 12. Metoprolol tartrate 25 mg twice a day. 13. Zofran as needed. 14. Protonix 40 mg twice a day. 15. Promethazine as needed for nausea. 16. Renvela 800 mg three tabs three times a day with meals. Arranging the details of this discharge took 35 minutes. Job ID: [id number] MTDD
== END 2020-05-01 16:11 | DRG 252 ==
LOC: ERS 13:58 → 2NO 19:46 → OBSVTOIN 19:46 → T4-A 04-20 14:31
PROVIDERS: ADMIT Family Medicine; ATTEND Family Medicine
PROC: 5A1D70Z Performance of Urinary Filtration, Intermittent, Less than 6 Hours Per Day (ICD-10-PCS; 2020-04-15)
PROC: 047Q3DZ Dilation of Left Anterior Tibial Artery with Intraluminal Device, Percutaneous Approach (ICD-10-PCS; principal; 2020-04-17)
PROC: 0FT44ZZ Resection of Gallbladder, Percutaneous Endoscopic Approach (ICD-10-PCS; 2020-04-17)
PROC: 8E0ZXY6 Isolation (ICD-10-PCS; 2020-04-19)
DX: E11.52 Type 2 diabetes mellitus with diabetic peripheral angiopathy with gangrene (principal); N18.6 End stage renal disease; U07.1 COVID-19; J12.89 Other viral pneumonia; L03.116 Cellulitis of left lower limb; M86.172 Other acute osteomyelitis, left ankle and foot; I13.2 Hypertensive heart and chronic kidney disease with heart failure and with stage 5 chronic kidney disease, or end stage renal disease; K80.00 Calculus of gallbladder with acute cholecystitis without obstruction; I96 Gangrene, not elsewhere classified; I50.32 Chronic diastolic (congestive) heart failure; E11.69 Type 2 diabetes mellitus with other specified complication; E11.22 Type 2 diabetes mellitus with diabetic chronic kidney disease; I25.10 Atherosclerotic heart disease of native coronary artery without angina pectoris; D63.1 Anemia in chronic kidney disease; K21.9 Gastro-esophageal reflux disease without esophagitis; E11.621 Type 2 diabetes mellitus with foot ulcer; L97.529 Non-pressure chronic ulcer of other part of left foot with unspecified severity; I70.202 Unspecified atherosclerosis of native arteries of extremities, left leg; E78.5 Hyperlipidemia, unspecified; Z99.2 Dependence on renal dialysis; Z89.611 Acquired absence of right leg above knee; Z79.899 Other long term (current) drug therapy; Z79.82 Long term (current) use of aspirin; Z79.4 Long term (current) use of insulin; Z90.710 Acquired absence of both cervix and uterus
CPT/HCPCS: 36415; 36416; 37226; 37228; 71045; 74176; 76705; 76942; 80048; 80053; 80076; 80202; 82553; 83690; 83735; 83880; 84484; 85007; 85025; 85027; 85347; 85610; 85652; 85730; 86140; 86706; 87040; 87324; 87340; 87449; 87635; 88304; 90935; 93005; 96365; 96367; 96374; 96375; 96376; C1760; C1874; C9113; G0257; J0692; J1100; J1644; J1650; J1815; J2250; J2270; J2405; J2543; J2550; J2704; J2720; J3010; J3370; J3490; Q0162; Q5105; Q9966; Q9967; S0020; U0003

== ENCOUNTER 2020-06-07 17:16 | Inpatient (IN) | payer MEDICARE, MEDICAID, OTHER ==
[2020-06-07] MEDS ORDERED: Cefepime 2 GM VIAL ONE (17:44)
[2020-06-07 17:53] LABS: #Basophils 0.1 thou/uL (0.0-0.2); #Eosinphils 0.2 thou/uL (0.0-0.7); #Lymphocytes 1.9 thou/uL (1.20-3.40); #Monocytes 1.3 thou/uL (0.11-0.59); #Neutrophils 12.4 thou/uL (1.40-6.50); %Basophils 0.4 % (0.0-1.0); %Eosinophils 1.2 % (0.0-10.0); %Monocytes 8.1 % (0.0-10.0); %Neutrophils 78.2 % (42.0-75.0); Mean Corpuscular HGB CONC 32.8 g/dL (32.0-36.0); Mean Corpuscular Hemoglobin 33.1 pg (27.0-31.0); Mean Platelet Volume 7.8 fL (7.4-10.4); Platelet Count 352 thou/uL (130-400); Red Blood Cell (RBC) Count 2.71 mill/uL (4.20-5.40); White Blood Cell (WBC) Count 15.9 thou/uL (4.8-10.8)
--- NOTE | 2020-06-07 17:54 | RAD ---
XR Chest 1 View Portable HISTORY: Fever, headache, nausea, diarrhea. Patient is on dialysis COMPARISON: Previous day FINDINGS: The heart is enlarged. There is mild prominence of the pulmonary vascularity and stable mil d perihilar infiltrates. No lobar consolidation, pneumothoraces or large effusions are seen.
[2020-06-07 18:11] LABS: Bilirubin Negative (Negative); Blood, Urine 1+ (Negative); Clarity Turbid (Clear); Glucose, Urine (Dipstick) 100 mg/dL (Negative); Ketone, Urine Negative (Negative); Leukocyte 75 Leu/uL (Negative); Nitrite Negative (Negative); Protein, Urine (Dipstick) 300 mg/dL (Neg-Trace); Renal Epithelial 0-3 HPF (None Seen); Specific Gravity, Urine 1.017 (1.002-1.036); Squamous Epithelial 0-3 HPF (0-3); Transitional Epithelial 0-3 HPF (None Seen); Urobilinogen Normal mg/dL (Less than 2); WBC/HPF Greater than 50 HPF (0-3)
[2020-06-07 18:17] LABS: ALT (SGPT) 16 U/L (8-55); AST (SGOT) 50 U/L (5-34); Albumin 3.3 g/dL (3.4-4.8); Alkaline Phosphatase 303 U/L (40-110); Anion Gap 17 mmol/L (10-20); BUN (Urea Nitrogen) 33 mg/dL (9.8-20.1); Bilirubin, Total 0.2 mg/dL (0.2-1.2); Calc. Creatinine Clearance 0 mL/min (70-130); Calcium 8.9 mg/dL (7.8-10.44); Carbon Dioxide 28 mmol/L (23-31); Chloride 94 mmol/L (98-107); Estimated GFR-MDRD 6; Globulin 5.1 g/dL (2.4-3.5); Glucose 249 mg/dL (80-115); Potassium 3.8 mmol/L (3.5-5.1); Protein, Total 8.4 g/dL (6.0-8.3); Sodium 135 mmol/L (136-145)
[2020-06-07 18:28] LABS: Bacteria/HPF 1+ HPF (None Seen)
--- NOTE | 2020-06-07 18:49 | CT ---
CT PULMONARY ANGIOGRAM WITH IV CONTRAST AND 3D POSTPROCESSIN06/07/20 HISTORY: Hypoxia, hypotension, recent surgery. Headache, nausea, diarrhea. FINDINGS: There is good contrast opacification of the pulmonary arterial vasculature without filling defects to suggest pulmonary embolism. The thoracic aorta is well opacified without aneurysmal dissection. Aden nary artery calcifications are present. No pericardial or pleural effusions are identified. There are subsegmental atelectatic changes in the lung bases. There are degenerative changes in the spine. IMPRESSION: No CT evidence of pulmonary embolism. POS: OFF
--- NOTE | 2020-06-07 18:56 | CT ---
CT ABDOMEN AND PELVIS WITH IV CONTRAST: 06/07/20 HISTORY: Nausea, diarrhea, headache, hypotension, abdominal pain, vomiting. Patient on dialysis. COMPARISON: 09/27/19. There are mild atelectatic change of the lung bases and interval changes of cholecystectomy are noted . The liver, spleen, pancreas, adrenal glands and kidneys are unremarkable. No free air, free fluid, or lymphadenopathy seen in the abdomen or pelvis. The small bowel loops are not abnormally dilated. T he patient is post hysterectomy. There are vascular calcifications without evidence of aneurysmal dilation of the abdominal aorta. The re are degenerative changes in the spine. A normal appearing appendix is seen. There is a 12 mm nodul ar density in the subcutaneous fat of the left lateral mid abdominal wall. IMPRESSION: No evidence of acute process. POS: OFF
[2020-06-07] MEDS ORDERED: Dextrose 5% in Water 1,000 ML IV PRN (20:33)
[2020-06-07] MEDS ORDERED: Insulin Regular 300 UNITS/3 ML VIAL SC PRN (20:33)
[2020-06-07] MEDS ORDERED: Dextrose 50% Abboject 50 ML SYRINGE SLOW IVP PRN (20:33)
[2020-06-07 21:00] LABS: Troponin I 0.058 ng/mL (< 0.028)
[2020-06-07] MEDS ORDERED: Acetaminophen 325 MG TAB PO PRN (22:30)
[2020-06-07] MEDS: Heparin 5,000 UNITS/ML VIAL SC SCH (23:18)
--- NOTE | 2020-06-08 00:54 | HP ---
REASON FOR ADMISSION: Low blood pressure. HISTORY OF PRESENT ILLNESS: This is a 59-year-old female patient, who is a very poor historian. She was sent from the dialysis unit while undergoing dialysis. She did have a low blood pressure reading of a systolic of 80/50, also was noted to be mildly hypoxic in the mid 80s. She was supplemented with oxygen and she was brought to our emergency room, where she reported that she has not been feeling well for the past couple days and to me, she said that she has been having burning upon urination. Otherwise, did report some vomiting, diarrhea, and headache. Reviewing her records, the patient was recently in our hospital and discharged approximately 24 hours ago. She was hospitalized for seven days during which, she had left below-knee amputation for osteomyelitis, then was transferred to a [facility] facility. PAST MEDICAL HISTORY: 1. Osteomyelitis of the left lower extremity. 2. Peripheral vascular disease status post revascularization of the left lower extremity. 3. COVID-19. 4. Acute acalculous cholecystitis status post lap cholecystectomy. 5. End-stage renal disease, on hemodialysis. 6. Diabetes, type 2. 7. High blood pressure. 8. Diastolic congestive heart failure. 9. Post . 10. Hysterectomy. 11. Dialysis shunt insertion. 12. Bilateral eye surgeries. 13. Right below-knee amputation. FAMILY HISTORY: Positive for diabetes, high blood pressure, and high cholesterol. SOCIAL HISTORY: She does not smoke. Does not drink alcohol. REVIEW OF SYSTEMS: All systems reviewed except the above mentioned, found to be negative. PHYSICAL EXAMINATION: GENERAL: Awake, alert, and oriented, does not appear in distress. VITAL SIGNS: Her blood pressure is 102/54, saturating 93% on room air, heart rate of 83, and temperature is 98.3. HEENT: Head is nontraumatic and normocephalic. Pupils are equal and reactive. Extraocular movements are intact. Nonicteric sclerae. Well injected conjunctivae. Oral mucosa normal. Nasal mucosa normal. NECK: Supple. No adenopathy. No murmur. Thyroid is not palpable. Trachea is midline. No supraclavicular lymphadenopathy. HEART: S1 and S2. Regular. No murmur. No gallop. No friction rubs. No displacement of PMI. LUNGS: Clear to auscultation bilaterally. No wheezes, rhonchi, or crackles. ABDOMEN: Bowel sounds are positive. Nontender abdomen. No visceromegaly. EXTREMITIES: She does have a bilateral below-knee amputation. Scar of her left BKA seems to be healing well. NEURO: Cranial nerves appeared to be intact and she is moving all her four extremities. LABORATORY DATA: Blood work shows WBC of 15.9, hemoglobin of 9, and platelets of 352, and neutrophil count 78.2%. Sodium of 135, potassium 3.8, bicarb 28, BUN 33, creatinine 6.7, and alkaline phosphatase 303. CK-MB 8, troponin 0.064 and previous troponin in March 0.03. Urinalysis, positive for infection. CT abdomen and pelvis shows no evidence of acute process. A CT of the chest shows no PE. A chest x-ray shows mild prominence of the pulmonary vascularity. Stable mild perihilar infiltrates. No lobar consolidation. EKG does not show any changes. ASSESSMENT AND PLAN: This is a 59-year-old female patient, who just left our hospital for left below-knee amputation, while undergoing dialysis, was found to be hypotensive and hypoxic. She was sent to us. It seems that she does have a urinary tract infection, could be early sepsis causing her blood pressure to drop, but now her blood pressure is within normal limits. ID: The patient will be started on IV Rocephin. She did receive IV cefepime in the ER, awaiting the results of urine culture and sensitivity. The patient is diabetic. She will be on insulin sliding scale. Renal system, electrolytes: The patient will be dialyzed in the morning. Nephrology was contacted by the ER physician. Until then, we will continue with Sneha. Cardiac: The patient has an indeterminate troponin. Continue cycling her cardiac enzymes. She will be on telemetry. Most likely this is due to demand ischemia. We will hold her blood pressure medications for now since initially her blood pressure was on the low side. We will continue with a baby aspirin, I am awaiting her med rec to be done. We will ask the Wound Care team to see her since she just had a left below-knee amputation. For deep venous thrombosis prophylaxis, she had been on heparin subcutaneously. For her gastrointestinal prophylaxis, she will be on Protonix. I did discuss with her code status. She wishes to be a full code. Job ID: [id number]
[2020-06-08] MEDS ORDERED: Calcium Carbonate 500 MG ChewTAB PO PRN (02:20)
[2020-06-08 04:41] LABS: #Eosinphils 0.2 thou/uL (0.0-0.7); #Lymphocytes 1.9 thou/uL (1.20-3.40); #Neutrophils 9.6 thou/uL (1.40-6.50); %Basophils 0.3 % (0.0-1.0); %Eosinophils 1.5 % (0.0-10.0); %Lymphocytes 14.7 % (21.0-51.0); %Monocytes 7.6 % (0.0-10.0); %Neutrophils 75.9 % (42.0-75.0); Hemoglobin 7.1 g/dL (12.0-16.0); Mean Corpuscular HGB CONC 30.9 g/dL (32.0-36.0); Mean Corpuscular Hemoglobin 31.1 pg (27.0-31.0); Platelet Count 286 thou/uL (130-400); RBC Distribution Width 14.2 % (11.5-14.5); Red Blood Cell (RBC) Count 2.29 mill/uL (4.20-5.40); White Blood Cell (WBC) Count 12.7 thou/uL (4.8-10.8)
[2020-06-08 04:58] LABS: Anion Gap 15 mmol/L (10-20); BUN (Urea Nitrogen) 38 mg/dL (9.8-20.1); Calc. Creatinine Clearance 9 mL/min (70-130); Calcium 8.1 mg/dL (7.8-10.44); Carbon Dioxide 26 mmol/L (23-31); Chloride 96 mmol/L (98-107); Estimated GFR-MDRD 6; Glucose 142 mg/dL (80-115); Potassium 3.9 mmol/L (3.5-5.1); Sodium 133 mmol/L (136-145)
[2020-06-08] MEDS: Acetaminophen 325 MG TAB PO PRN ×4 (06:33→21:19)
[2020-06-08] MEDS: Gabapentin 300 MG CAP PO SCH ×3 (09:33→21:21)
[2020-06-08] MEDS: Aspirin 81 mg Enteric Coated Tablet PO SCH (09:34)
[2020-06-08] MEDS: Calcium Acetate 667 MG CAP PO SCH ×3 (09:34→15:35)
[2020-06-08] MEDS: cefTRIAXone\\ROCEPHIN 1 GM in Sodium Chloride 0.9% 100 ML IVPB SCH (09:35)
[2020-06-08] MEDS: Heparin 5,000 UNITS/ML VIAL SC SCH ×3 (09:35→21:19)
[2020-06-08] MEDS: Ferrous Sulfate 325 MG TAB PO SCH ×3 (09:35→15:32)
[2020-06-08] MEDS ORDERED: EPOETIN ALFA-EPBX (ESRD) 4,000 UNIT/ML VIAL SC SCH (10:45)
--- NOTE | 2020-06-08 11:13 | PRG ---
DATE OF SERVICE: 06/08/2020 SUBJECTIVE: Ms. Saldivar is a 59-year-old female with ESRD-on maintenance hemodialysis and was re-admitted for fever. She is currently being treated with empiric IV antibiotics. Chest x-ray and CT of the chest as well of a CT of the abdomen were essentially negative. She was also ruled out for pulmonary embolism. We are following up this patient for her management of her ESRD as well as maintenance hemodialysis. The patient missed dialysis yesterday and for that reason, she is going to undergo her regular dialysis today. No other complaints today. No chest pain or shortness of breath. OBJECTIVE: VITAL SIGNS: Blood pressure 116/53, heart rate 74, respiratory rate 18, temperature 97.4, and O2 saturation 99%. GENERAL: Awake, comfortable, not in distress. SKIN: Adequate turgor. HEENT: Pale conjunctivae. Anicteric sclerae. NECK: No neck mass. No carotid bruits. No JVD. CHEST: No deformities. LUNGS: Clear breath sounds. No wheezing. No crackles. HEART: Normal sinus rhythm. No murmur. No gallops. No rubs. ABDOMEN: Globular, soft, and nontender. No masses. EXTREMITIES: Bilateral BKA. MEDICATIONS: Medications of June 08, 2020, were reviewed. LABORATORY DATA: Laboratories of June 08, 2020; white count 12.7, hemoglobin 7.1. Sodium 133, potassium 3.9, chloride 96, carbon dioxide 26, BUN 38, creatinine 6.99, glucose 142, calcium 8.1. Troponin I 0.060. ASSESSMENT AND PLAN: 1. End-stage renal disease. We will continue current 3 times a week hemodialysis regimen with this patient. Fluid removal will be done as tolerated by the patient. After today's dialysis, we will resume back on her regular Wednesday, Wednesday, and Wednesday hemodialysis. 2. Fever. Blood culture has been done, so far no growth to date, on empiric IV antibiotics. 3. Anemia. Start Epogen 7500 units subcu q.week. Recheck CBC and basic met in a.m. Job ID: [id number]
--- NOTE | 2020-06-08 11:25 | PDOC.HOSPP ---
- Subjective Encounter Date: 06/08/20 Encounter Time: 10:20 Subjective: Patient is sleepy. She has no complaints. White count is trending down. Just being discharged after left below-knee amputation. Readmitted due to hypoxia and hypotension during dialysis. Blood pressure is much better today. She is going for dialysis today. - Objective Vital Signs & Weight: Vital Signs (12 hours) Temp Pulse Resp BP Pulse Ox 06/08/20 09:26 97.4 F L 74 18 116/53 L 99 06/08/20 04:00 97.7 F 76 12 116/59 L 99 Weight Weight 154 lb I&O: 06/07/20 06/08/20 06/09/20 06:59 06:59 06:59 Intake Total 120 Output Total 0 Balance 120 Result Diagrams: 06/08/20 04:11 06/08/20 04:11 Additional Labs: Accuchecks 06/08/20 06/07/20 05:43 22:41 POC Glucose 144 H 193 H Hospitalist ROS - Medication Medications: Active Medications Generic Name Dose Route Start Last Admin Trade Name Freq PRN Reason Stop Dose Admin Acetaminophen 650 mg 06/08/20 02:20 06/08/20 09:41 Tylenol PO 650 mg Q4H PRN Administration Headache/Fever/Mild Pain (1-3) Aspirin 81 mg 06/08/20 09:00 06/08/20 09:34 Ecotrin PO 81 mg DAILY JONATHAN Administration Calcium Acetate 1,334 mg 06/08/20 08:00 06/08/20 09:34 Phoslo PO 1,334 mg TID-WM JONATHAN Administration Ferrous Sulfate 325 mg 06/08/20 08:00 06/08/20 09:35 Feosol PO 325 mg TID-WM JONATHAN Administration Gabapentin 300 mg 06/08/20 09:00 06/08/20 09:33 Neurontin PO 300 mg TID JONATHAN Administration Heparin Sodium (Porcine) 5,000 units 06/07/20 21:00 06/08/20 09:35 Heparin SC 5,000 units TID JONATHAN Administration Ceftriaxone Sodium 1 gm/ 100 mls @ 200 mls/hr 06/08/20 09:00 06/08/20 09:35 Sodium Chloride IVPB 100 mls Q24HR JONATHAN Administration Isosorbide Mononitrate 15 mg 06/08/20 09:00 06/08/20 09:34 Imdur Er PO 15 mg DAILY JONATHAN Administration Pantoprazole Sodium 40 mg 06/08/20 09:00 06/08/20 09:34 Protonix PO 40 mg BID JONATHAN Administration - Exam General Appearance: NAD, awake alert General - other findings: Sleepy but responds appropriately. Eye: PERRL ENT: normocephalic atraumatic Neck: supple Heart: RRR, normal peripheral pulses Respiratory: CTAB, normal chest expansion Gastrointestinal: soft, normal bowel sounds Neurological - other findings: Left below-knee amputation suture site looks good. Psychiatric: A&O x 3 Hosp A/P - Plan hypotension probably due to hypovolemia -Resolved -We will restart her home medications for blood pressure after dialysis completed and the blood pressure allows -Imdur Urinary tract infection -Cultures has been sent -On empiric antibiotic End-stage renal disease on hemodialysis -Plan for dialysis today. Abnormal troponin due to metabolic mismatch -Indeterminate level/demand ischemia Anemia of kidney disease On Retacrit Type 2 diabetes mellitus On Lantus as well as sliding scale insulin.
[2020-06-08 14:07] LABS: SARS-CoV-2 MS2 Positive; SARS-CoV-2 N Gene Negative; SARS-CoV-2 S Gene Negative; SARS-CoV-2 by NAA Not Detected (NotDetected); SARS-CoV-2 orf1ab Negative
[2020-06-08] MEDS: Insulin Glargine 10 UNITS in Pre-Filled Syringe 1 EACH SC SCH (21:25)
[2020-06-09] MEDS: Acetaminophen 325 MG TAB PO PRN (05:30)
[2020-06-09] MEDS ORDERED: Morphine 2 MG/ML VIAL SLOW IVP SCH (07:15)
[2020-06-09] MEDS: Ferrous Sulfate 325 MG TAB PO SCH ×3 (08:58→17:48)
[2020-06-09] MEDS: Aspirin 81 mg Enteric Coated Tablet PO SCH (08:58)
[2020-06-09] MEDS: Gabapentin 300 MG CAP PO SCH ×3 (08:58→22:13)
[2020-06-09] MEDS: Calcium Acetate 667 MG CAP PO SCH ×3 (08:58→17:48)
[2020-06-09] MEDS: cefTRIAXone\\ROCEPHIN 1 GM in Sodium Chloride 0.9% 100 ML IVPB SCH (08:59)
[2020-06-09] MEDS: Heparin 5,000 UNITS/ML VIAL SC SCH ×3 (08:59→22:11)
[2020-06-09 09:15] LABS: #Eosinphils 0.1 thou/uL (0.0-0.7); #Lymphocytes 1.5 thou/uL (1.20-3.40); #Monocytes 0.7 thou/uL (0.11-0.59); #Neutrophils 8.1 thou/uL (1.40-6.50); %Basophils 0.3 % (0.0-1.0); %Eosinophils 1.2 % (0.0-10.0); %Lymphocytes 14.1 % (21.0-51.0); %Monocytes 7.1 % (0.0-10.0); %Neutrophils 77.3 % (42.0-75.0); Hemoglobin 7.8 g/dL (12.0-16.0); Mean Corpuscular HGB CONC 32.5 g/dL (32.0-36.0); Mean Corpuscular Hemoglobin 32.8 pg (27.0-31.0); Mean Platelet Volume 7.7 fL (7.4-10.4); Platelet Count 305 thou/uL (130-400); RBC Distribution Width 14.2 % (11.5-14.5); Red Blood Cell (RBC) Count 2.39 mill/uL (4.20-5.40); White Blood Cell (WBC) Count 10.4 thou/uL (4.8-10.8)
[2020-06-09 09:30] LABS: Anion Gap 15 mmol/L (10-20); BUN (Urea Nitrogen) 18 mg/dL (9.8-20.1); Calc. Creatinine Clearance 15 mL/min (70-130); Calcium 8.7 mg/dL (7.8-10.44); Carbon Dioxide 25 mmol/L (23-31); Chloride 97 mmol/L (98-107); Estimated GFR-MDRD 10; Glucose 100 mg/dL (80-115); Potassium 3.3 mmol/L (3.5-5.1); Sodium 134 mmol/L (136-145)
[2020-06-09] MEDS: HYDROcodone/Acetaminophen 5/325 mg Tablet PO PRN ×2 (11:15→17:48)
--- NOTE | 2020-06-09 14:05 | PDOC.HOSPP ---
- Subjective Encounter Date: 06/09/20 Encounter Time: 09:40 Subjective: Patient is quite morning. She is alert oriented. She is not hypoxic; 95% in the room air. Her blood pressure is also 135/64. - Objective Vital Signs & Weight: Vital Signs (12 hours) Temp Pulse Resp BP Pulse Ox 06/09/20 11:20 96.5 F L 80 18 135/64 98 06/09/20 07:07 98.1 F 74 18 130/60 95 06/09/20 03:51 98.5 F 75 20 134/89 98 Weight Admit Weight 154 lb Weight 156 lb 9.6 oz I&O: 06/08/20 06/09/20 06/10/20 06:59 06:59 06:59 Intake Total 740 Output Total 1000 Balance -260 Result Diagrams: 06/09/20 09:02 06/09/20 09:02 Additional Labs: Accuchecks 06/09/20 06/09/20 06/08/20 11:21 05:49 20:58 POC Glucose 130 H 120 H 147 H 06/08/20 16:40 POC Glucose 140 H Hospitalist ROS - Medication Medications: Active Medications Generic Name Dose Route Start Last Admin Trade Name Freq PRN Reason Stop Dose Admin Acetaminophen 650 mg 06/08/20 02:20 06/09/20 05:30 Tylenol PO 650 mg Q4H PRN Administration Headache/Fever/Mild Pain (1-3) Hydrocodone Bitart/Acetaminophen 1 tab 06/09/20 09:24 06/09/20 11:15 Hugo 5/325 PO 1 tab Q6H PRN Administration Pain (5-10) Aspirin 81 mg 06/08/20 09:00 06/09/20 08:58 Ecotrin PO 81 mg DAILY JONATHAN Administration Calcium Acetate 1,334 mg 06/08/20 08:00 06/09/20 11:16 Phoslo PO 1,334 mg TID-WM JONATHAN Administration Epoetin Marcelo-epbx 7,500 unit 06/08/20 10:45 06/08/20 15:34 Retacrit SC 7,500 unit Q7D JONATHAN Administration Ferrous Sulfate 325 mg 06/08/20 08:00 06/09/20 11:15 Feosol PO 325 mg TID-WM JONATHAN Administration Gabapentin 300 mg 06/08/20 09:00 06/09/20 08:58 Neurontin PO 300 mg TID JONATHAN Administration Heparin Sodium (Porcine) 5,000 units 06/07/20 21:00 06/09/20 08:59 Heparin SC 5,000 units TID JONATHAN Administration Ceftriaxone Sodium 1 gm/ 100 mls @ 200 mls/hr 06/08/20 09:00 06/09/20 08:59 Sodium Chloride IVPB 100 mls Q24HR JONATHAN Administration Insulin Glargine 10 units/ 0.1 mls @ 0 mls/hr 06/08/20 21:00 06/08/20 21:25 Miscellaneous Medication SC 0.1 mls HS JONATHAN Administration Isosorbide Mononitrate 15 mg 06/08/20 09:00 06/09/20 08:58 Imdur Er PO 15 mg DAILY JONATHAN Administration Pantoprazole Sodium 40 mg 06/08/20 09:00 06/09/20 08:58 Protonix PO 40 mg BID JONATHAN Administration - Exam General Appearance: NAD, awake alert Eye: PERRL ENT: normocephalic atraumatic Neck: supple Heart: RRR, normal peripheral pulses Respiratory: CTAB, normal chest expansion Gastrointestinal: soft, normal bowel sounds Psychiatric: A&O x 3 Hosp A/P - Plan hypotension probably due to hypovolemia -Resolved -We will restart her home medications for blood pressure after dialysis completed and the blood pressure allows -Imdur Urinary tract infection -Cultures has been sent -On empiric antibiotic End-stage renal disease on hemodialysis -Plan for dialysis today. Abnormal troponin due to metabolic mismatch -Indeterminate level/demand ischemia Anemia of kidney disease On Retacrit Type 2 diabetes mellitus On Lantus as well as sliding scale insulin. -She has significant amount of pain in her left below-knee amputation wound site. It looks good. -Will try to optimize analgesic so that she can be discharged to inpatient rehab tomorrow. -She is legally blind. -She also needs dialysis -- her routine Wednesday - plan for discharge after Wednesday dialysis.
[2020-06-09] MEDS ORDERED: Ondansetron ODT 4 MG TAB PO PRN (22:26)
[2020-06-09] MEDS: Insulin Glargine 10 UNITS in Pre-Filled Syringe 1 EACH SC SCH (22:37)
[2020-06-09] MEDS: Ondansetron PF 4 MG/2 ML Vial IVP PRN (22:42)
[2020-06-10 04:24] LABS: #Basophils 0.1 thou/uL (0.0-0.2); #Eosinphils 0.1 thou/uL (0.0-0.7); #Lymphocytes 1.8 thou/uL (1.20-3.40); #Monocytes 0.9 thou/uL (0.11-0.59); #Neutrophils 7.2 thou/uL (1.40-6.50); %Basophils 0.7 % (0.0-1.0); %Eosinophils 1.3 % (0.0-10.0); %Lymphocytes 17.7 % (21.0-51.0); %Monocytes 9.1 % (0.0-10.0); %Neutrophils 71.3 % (42.0-75.0); Hemoglobin 7.7 g/dL (12.0-16.0); Mean Corpuscular HGB CONC 30.7 g/dL (32.0-36.0); Mean Corpuscular Hemoglobin 31.9 pg (27.0-31.0); Mean Platelet Volume 7.7 fL (7.4-10.4); Platelet Count 317 thou/uL (130-400); RBC Distribution Width 14.4 % (11.5-14.5); Red Blood Cell (RBC) Count 2.41 mill/uL (4.20-5.40); White Blood Cell (WBC) Count 10.1 thou/uL (4.8-10.8)
[2020-06-10] MEDS: HYDROcodone/Acetaminophen 5/325 mg Tablet PO PRN ×3 (04:30→21:00)
[2020-06-10 04:41] LABS: Anion Gap 17 mmol/L (10-20); BUN (Urea Nitrogen) 25 mg/dL (9.8-20.1); Calc. Creatinine Clearance 12 mL/min (70-130); Calcium 8.9 mg/dL (7.8-10.44); Carbon Dioxide 24 mmol/L (23-31); Chloride 97 mmol/L (98-107); Estimated GFR-MDRD 8; Glucose 110 mg/dL (80-115); Potassium 3.6 mmol/L (3.5-5.1); Sodium 134 mmol/L (136-145)
--- NOTE | 2020-06-10 09:16 | PRG ---
DATE OF SERVICE: 06/10/2020 SUBJECTIVE: Ms. Saldivar is a 59-year-old female, who was admitted for fever. Blood and urine culture have been negative. She was empirically treated with IV antibiotics and currently still on ceftriaxone. We are following this patient up for management of her ESRD. The patient is currently undergoing hemodialysis today. Fluid removal only as tolerated. OBJECTIVE: VITAL SIGNS: Blood pressure 111/55, heart rate 74, respiratory rate 14, temperature 97.5, O2 saturation is 95%. GENERAL: The patient is awake, alert, comfortable, not in distress. SKIN: Adequate turgor. HEENT: Pinkish conjunctivae. Anicteric sclerae. NECK: No neck mass. No carotid bruits. No JVD. CHEST: No deformities. LUNGS: Clear breath sounds. No wheezing. No crackles. HEART: Normal sinus rhythm. No murmurs, no gallops, no rubs. ABDOMEN: Globular, soft, nontender. EXTREMITIES: Bilateral BKA. MEDICATIONS: Medications of June 10, 2020, were reviewed. LABORATORY DATA: Laboratories of June 10, 2020; white count 10.1, hemoglobin 7.7. Sodium 134, potassium 3.6, chloride 97, carbon dioxide 24, BUN 25, creatinine 5.59, glucose 110, calcium 8.9. ASSESSMENT AND PLAN: 1. Anemia, currently on weekly Epogen. 2. End-stage renal disease, stable, tolerating current hemodialysis regimen. Fluid removal only as tolerated. 3. Fever, resolved. Blood cultures have all been negative. Job ID: [id number]
--- NOTE | 2020-06-10 09:18 | PRG ---
DATE OF SERVICE: 06/09/2020 SUBJECTIVE: Ms. Saldivar is a 59-year-old female with ESRD, on maintenance hemodialysis, and admitted for fever. So far, the blood cultures have been negative today. Chest and CT scan were essentially negative. She voices no complaints of fever today. However, she is complaining of some stump pain on the left lower extremity. No complaints of chest pain or shortness of breath. She is on empiric IV antibiotics. OBJECTIVE: VITAL SIGNS: Blood pressure 130/60, heart rate 74, respiratory rate 18, O2 saturation 95% on room air, temperature 98.1. GENERAL: Awake, alert, comfortable, not in overt distress. SKIN: Adequate turgor. HEENT: Slightly pale conjunctivae. Anicteric sclerae. No neck mass. No carotid bruits. No JVD. CHEST: No deformities. LUNGS: Clear breath sounds. No wheezing. No crackles. HEART: Normal sinus rhythm. No murmur. No gallops. No rubs. ABDOMEN: Globular, soft, nontender. No masses. EXTREMITIES: Bilateral BKA. MEDICATIONS: Medications of June 09, 2020, were reviewed. LABORATORY DATA: Laboratories of June 09, 2020, white count 10.4, hemoglobin 7.8. Sodium 134, potassium 3.3, chloride 97, carbon dioxide 25, BUN 18, creatinine 4.3, glucose 100, calcium 8.7. ASSESSMENT AND PLAN: 1. End-stage renal disease, stable. The patient received hemodialysis yesterday due to a missed treatment on Wednesday. Our plan is to continue her Wednesday, Wednesday, and Wednesday hemodialysis. Fluid removal as tolerated. There is no indication for any emergent hemodialysis today. 2. Anemia. Continue weekly Epogen. 3. Fever, resolved. Continue to observe on empiric IV antibiotics. Blood cultures have been negative so far. In addition, urine C and S was also negative. Continuing supportive care. Job ID: [id number]
[2020-06-10] MEDS: Calcium Acetate 667 MG CAP PO SCH ×3 (11:30→17:24)
[2020-06-10] MEDS: Aspirin 81 mg Enteric Coated Tablet PO SCH (11:30)
[2020-06-10] MEDS: Ferrous Sulfate 325 MG TAB PO SCH ×3 (11:31→17:24)
[2020-06-10] MEDS: Heparin 5,000 UNITS/ML VIAL SC SCH ×3 (11:32→20:57)
[2020-06-10] MEDS: cefTRIAXone\\ROCEPHIN 1 GM in Sodium Chloride 0.9% 100 ML IVPB SCH (11:36)
--- NOTE | 2020-06-10 11:59 | PDOC.HOSPP ---
- Subjective Encounter Date: 06/10/20 Encounter Time: 10:30 Subjective: Seen in the dialysis area. She is still complaining of the pain even though this is better than yesterday. I talked to her about discharge plan. She lives with her spouse. She was [facility] to [facility] after left below-knee amputation. I think she would benefit with a little bit more physical therapy in inpatient rehab. - Objective Vital Signs & Weight: Vital Signs (12 hours) Temp Pulse Resp BP Pulse Ox 06/10/20 10:45 97.9 F 85 18 125/57 L 100 06/10/20 03:07 97.5 F L 74 14 111/55 L 95 Weight Admit Weight 154 lb Weight 156 lb 2 oz I&O: 06/09/20 06/10/20 06/11/20 06:59 06:59 06:59 Intake Total 740 860 Output Total 1000 75 Balance -260 785 Result Diagrams: 06/10/20 04:03 06/10/20 04:03 Additional Labs: Accuchecks 06/10/20 06/09/20 06/09/20 10:44 22:23 16:28 POC Glucose 104 113 H 123 H Hospitalist ROS - Medication Medications: Active Medications Generic Name Dose Route Start Last Admin Trade Name Freq PRN Reason Stop Dose Admin Acetaminophen 650 mg 06/08/20 02:20 06/09/20 05:30 Tylenol PO 650 mg Q4H PRN Administration Headache/Fever/Mild Pain (1-3) Hydrocodone Bitart/Acetaminophen 1 tab 06/09/20 09:24 06/10/20 11:37 [place] 5/325 PO 1 tab Q6H PRN Administration Pain (5-10) Aspirin 81 mg 06/08/20 09:00 06/10/20 11:30 Ecotrin PO 81 mg DAILY JONATHAN Administration Calcium Acetate 1,334 mg 06/08/20 08:00 06/10/20 11:52 Phoslo PO Not Given TID-WM JONATHAN Epoetin Marcelo-epbx 7,500 unit 06/08/20 10:45 06/08/20 15:34 Retacrit SC 7,500 unit Q7D JONATHAN Administration Ferrous Sulfate 325 mg 06/08/20 08:00 06/10/20 11:49 Feosol PO Not Given TID-WM JONATHAN Heparin Sodium (Porcine) 5,000 units 06/07/20 21:00 06/10/20 11:32 Heparin SC 5,000 units TID JONATHAN Administration Ceftriaxone Sodium 1 gm/ 100 mls @ 200 mls/hr 06/08/20 09:00 06/10/20 11:36 Sodium Chloride IVPB 100 mls Q24HR JONATHAN Administration Insulin Glargine 10 units/ 0.1 mls @ 0 mls/hr 06/08/20 21:00 06/09/20 22:37 Miscellaneous Medication SC Not Given HS JONATHAN Isosorbide Mononitrate 15 mg 06/08/20 09:00 06/10/20 11:31 Imdur Er PO 15 mg DAILY JONATHAN Administration Ondansetron HCl 4 mg 06/09/20 22:26 06/09/20 22:42 Zofran IVP 4 mg Q6H PRN Administration Nausea/Vomiting Pantoprazole Sodium 40 mg 06/08/20 09:00 06/10/20 11:31 Protonix PO 40 mg BID JONATHAN Administration - Exam General Appearance: NAD, awake alert, ill appearing Eye: PERRL ENT: normocephalic atraumatic Neck: supple Heart: RRR Respiratory: CTAB, normal chest expansion Gastrointestinal: soft, normal bowel sounds Extremities: no edema Extremities - other findings: Left below-knee amputation Neurological: cranial nerve grossly intact Psychiatric: A&O x 3 Hosp A/P - Plan hypotension probably due to hypovolemia -Resolved -We will restart her home medications for blood pressure after dialysis completed and the blood pressure allows -Imdur Urinary tract infection -Cultures has been sent -On empiric antibiotic End-stage renal disease on hemodialysis -Plan for dialysis today. Abnormal troponin due to metabolic mismatch -Indeterminate level/demand ischemia Anemia of kidney disease On Retacrit Type 2 diabetes mellitus On Lantus as well as sliding scale insulin. -She has significant amount of pain in her left below-knee amputation wound site. It looks good. -Will try to optimize analgesic so that she can be discharged to inpatient rehab tomorrow. -She is legally blind. -She also needs dialysis -- her routine Wednesday - plan for discharge after Wednesday dialysis. She lives with her spouse. She [facility] to [facility] after left below-knee amputation. I think she would benefit with a little bit more physical therapy in inpatient rehab. I am little concerned about sending her home with home health as she needs more help than just home health in terms of ongoing physical therapy and overall strength training given her recent surgery. Will await for the manager rn case's input on placement evaluation.
[2020-06-10] MEDS: Gabapentin 300 MG CAP PO SCH (12:28)
[2020-06-10] MEDS: Morphine 2 MG/ML VIAL SLOW IVP PRN ×2 (13:44→17:50)
[2020-06-10] MEDS: Ondansetron PF 4 MG/2 ML Vial IVP PRN (13:48)
[2020-06-10] MEDS: Insulin Glargine 10 UNITS in Pre-Filled Syringe 1 EACH SC SCH (20:59)
--- NOTE | 2020-06-10 22:55 | RAD ---
EXAM: Single view of the abdomen HISTORY: Abdominal pain COMPARISON: 09/28/2018; CT abdomen/pelvis 06/07/2020 FINDINGS: Single view of the abdomen shows a nonspecific, nonobstructive bowel gas pattern. There xiomara ears be contrast or radiodense material within the colon. No suspicious calcifications are seen. The bones are unremarkable. Cholecystectomy clips are seen. IMPRESSION: No evidence of obstruction
[2020-06-11] MEDS: Senokot S 8.6-50 MG TAB PO PRN ×2 (06:02→21:47)
[2020-06-11] MEDS: HYDROcodone/Acetaminophen 5/325 mg Tablet PO PRN ×3 (06:03→21:47)
--- NOTE | 2020-06-11 08:15 | PRG ---
DATE OF SERVICE: SUBJECTIVE: Ms. Saldivar is a 59-year-old female with ESRD, was admitted for fever and chills. Blood culture and urine culture have been negative. She has been receiving empiric IV antibiotics. This morning, she voices no new complaints. Also following up this patient for her hemodialysis regimen. She tolerated dialysis yesterday without any difficulty. She denies any chest pain or shortness of breath this morning. OBJECTIVE: VITAL SIGNS: Blood pressure 133/65, heart rate 73, respiratory rate 18, temperature 98.4, O2 sat 96%. GENERAL: The patient is noted to be awake, alert, comfortable, not in distress. SKIN: Adequate turgor. HEENT: She has a slightly pale conjunctivae. Anicteric sclerae. NECK: No neck mass. No carotid bruits. No JVD. CHEST: No deformities. LUNGS: Clear breath sounds. No wheezing. No crackles. HEART: Normal sinus rhythm. No murmur. No gallops. No rubs. ABDOMEN: Globular, soft, nontender. No masses. EXTREMITIES: Status post bilateral BKA. MEDICATIONS: Medications of June 11, 2020, reviewed. LABORATORY DATA: Laboratories of June 10, 2020; white count 10.1, hemoglobin 7.7. June 10, 2020; sodium 134, potassium 3.6, chloride 97, carbon dioxide 24, BUN 25, creatinine 5.59, calcium 8.9. ASSESSMENT AND PLAN: 1. End-stage renal disease stable. We will continue current Wednesday, Wednesday, and Wednesday hemodialysis regimen. Fluid removal only as tolerated. No indication for any emergency dialysis today. 2. Anemia. Continue weekly Epogen with this patient, p.r.n. blood transfusion. 3. Fever, resolved. Blood culture and urine culture have been negative. Recheck CBC, basic met in a.m. Job ID: [id number]
[2020-06-11] MEDS: Ferrous Sulfate 325 MG TAB PO SCH ×3 (08:59→15:47)
[2020-06-11] MEDS: Heparin 5,000 UNITS/ML VIAL SC SCH ×3 (08:59→20:37)
[2020-06-11] MEDS: Gabapentin 300 MG CAP PO SCH (08:59)
[2020-06-11] MEDS: Calcium Acetate 667 MG CAP PO SCH ×3 (08:59→15:47)
[2020-06-11] MEDS: Aspirin 81 mg Enteric Coated Tablet PO SCH (08:59)
[2020-06-11] MEDS: cefTRIAXone\\ROCEPHIN 1 GM in Sodium Chloride 0.9% 100 ML IVPB SCH (09:00)
[2020-06-11] MEDS: Ondansetron PF 4 MG/2 ML Vial IVP PRN (13:01)
--- NOTE | 2020-06-11 15:16 | PDOC.HOSPP ---
- Subjective Encounter Date: 06/11/20 Encounter Time: 12:40 Subjective: Patient resting well. She kept saying that she wants to go home., Even though I explained that she would not be able to get adequate help as she needs. Pain is controlled. - Objective Vital Signs & Weight: Vital Signs (12 hours) Temp Pulse Resp BP Pulse Ox 06/11/20 11:18 98.4 F 81 15 122/60 92 L 06/11/20 07:21 98.4 F 73 18 133/65 96 06/11/20 04:00 97.4 F L 71 19 111/55 L 100 Weight Admit Weight 154 lb Weight 152 lb 12.485 oz I&O: 06/10/20 06/11/20 06/12/20 06:59 06:59 06:59 Intake Total 860 990 Output Total 75 0 Balance 785 990 Result Diagrams: 06/10/20 04:03 06/10/20 04:03 Additional Labs: Accuchecks 06/11/20 06/11/20 06/10/20 11:11 06:04 20:15 POC Glucose 144 H 104 136 H 06/10/20 16:43 POC Glucose 175 H Hospitalist ROS - Medication Medications: Active Medications Generic Name Dose Route Start Last Admin Trade Name Freq PRN Reason Stop Dose Admin Acetaminophen 650 mg 06/08/20 02:20 06/09/20 05:30 Tylenol PO 650 mg Q4H PRN Administration Headache/Fever/Mild Pain (1-3) Hydrocodone Bitart/Acetaminophen 1 tab 06/09/20 09:24 06/11/20 13:04 [place] 5/325 PO 1 tab Q6H PRN Administration Pain (5-10) Aspirin 81 mg 06/08/20 09:00 06/11/20 08:59 Ecotrin PO 81 mg DAILY JONATHAN Administration Calcium Acetate 1,334 mg 06/08/20 08:00 06/11/20 11:22 Phoslo PO 1,334 mg TID-WM JONATHAN Administration Epoetin Marcelo-epbx 7,500 unit 06/08/20 10:45 06/08/20 15:34 Retacrit SC 7,500 unit Q7D JONATHAN Administration Ferrous Sulfate 325 mg 06/08/20 08:00 06/11/20 11:22 Feosol PO 325 mg TID-WM JONATHAN Administration Gabapentin 300 mg 06/11/20 09:00 06/11/20 08:59 Neurontin PO 300 mg DAILY JONATHAN Administration Heparin Sodium (Porcine) 5,000 units 06/07/20 21:00 06/11/20 08:59 Heparin SC 5,000 units TID JONATHAN Administration Ceftriaxone Sodium 1 gm/ 100 mls @ 200 mls/hr 06/08/20 09:00 06/11/20 09:00 Sodium Chloride IVPB 100 mls Q24HR JONATHAN Administration Insulin Glargine 10 units/ 0.1 mls @ 0 mls/hr 06/08/20 21:00 06/10/20 20:59 Miscellaneous Medication SC 0.1 mls HS JONTAHAN Administration Insulin Human Regular 0 units 06/07/20 20:33 06/10/20 17:23 Humulin R SC 2 unit .MODERATE SLIDING SC PRN Administration Moderate Correctional Scale Isosorbide Mononitrate 15 mg 06/08/20 09:00 06/11/20 08:59 Imdur Er PO 15 mg DAILY JONATHAN Administration Ondansetron HCl 4 mg 06/09/20 22:26 06/11/20 13:01 Zofran IVP 4 mg Q6H PRN Administration Nausea/Vomiting Pantoprazole Sodium 40 mg 06/08/20 09:00 06/11/20 09:00 Protonix PO 40 mg BID JONATHAN Administration Senna/Docusate Sodium 2 tab 06/10/20 22:10 06/11/20 06:02 Senokot S PO 2 tab BIDPRN PRN Administration Constipation - Exam General Appearance: NAD, awake alert Eye: PERRL ENT: normocephalic atraumatic Neck: supple Heart: RRR Respiratory: CTAB Gastrointestinal: soft, normal bowel sounds Extremities - other findings: Left above-knee amputation. The suture site looks good. Hosp A/P - Plan hypotension probably due to hypovolemia -Resolved -We will restart her home medications for blood pressure after dialysis completed and the blood pressure allows -Imdur Urinary tract infection -Cultures has been sent -On empiric antibiotic End-stage renal disease on hemodialysis -Plan for dialysis today. Abnormal troponin due to metabolic mismatch -Indeterminate level/demand ischemia Anemia of kidney disease On Retacrit Type 2 diabetes mellitus On Lantus as well as sliding scale insulin. -She has significant amount of pain in her left below-knee amputation wound site. It looks good. -Will try to optimize analgesic so that she can be discharged to inpatient rehab tomorrow. -She is legally blind. -She also needs dialysis -- her routine Wednesday - plan for discharge after Wednesday dialysis. She lives with her spouse. She was [facility] to [facility] facility after left below-knee amputation. I think she would benefit with a little bit more physical therapy in inpatient rehab. I am little concerned about sending her home with home health as she needs more help than just home health in terms of ongoing physical therapy and overall strength training given her recent surgery. Will await for the case management rn's input on placement evaluation. 25th Patient is clinically stable to transfer back to a correction facility. She may not be able to get adequate help at home as she is transferred during the last discharge after the surgery to correction facility. Pending bed availability at her previous correction facility.
[2020-06-11] MEDS: Insulin Glargine 10 UNITS in Pre-Filled Syringe 1 EACH SC SCH (20:37)
[2020-06-12 05:01] LABS: #Basophils 0.1 thou/uL (0.0-0.2); #Eosinphils 0.3 thou/uL (0.0-0.7); #Lymphocytes 1.9 thou/uL (1.20-3.40); #Monocytes 1.1 thou/uL (0.11-0.59); #Neutrophils 5.8 thou/uL (1.40-6.50); %Basophils 0.6 % (0.0-1.0); %Eosinophils 3.3 % (0.0-10.0); %Lymphocytes 20.6 % (21.0-51.0); %Monocytes 11.7 % (0.0-10.0); %Neutrophils 63.7 % (42.0-75.0); Hemoglobin 8.2 g/dL (12.0-16.0); Mean Corpuscular HGB CONC 31.7 g/dL (32.0-36.0); Mean Corpuscular Hemoglobin 32.8 pg (27.0-31.0); Mean Platelet Volume 7.3 fL (7.4-10.4); Platelet Count 364 thou/uL (130-400); RBC Distribution Width 14.5 % (11.5-14.5); Red Blood Cell (RBC) Count 2.48 mill/uL (4.20-5.40)
[2020-06-12 05:15] LABS: Anion Gap 15 mmol/L (10-20); BUN (Urea Nitrogen) 23 mg/dL (9.8-20.1); Calc. Creatinine Clearance 12 mL/min (70-130); Carbon Dioxide 28 mmol/L (23-31); Chloride 95 mmol/L (98-107); Estimated GFR-MDRD 8; Glucose 91 mg/dL (80-115); Potassium 3.1 mmol/L (3.5-5.1); Sodium 135 mmol/L (136-145)
--- NOTE | 2020-06-12 08:52 | PRG ---
DATE OF SERVICE: 06/12/2020 SUBJECTIVE: Ms. Saldivar is a 59-year-old female with ESRD and currently undergoing hemodialysis. She was admitted for fever and chills. Blood cultures were all negative. She was empirically given IV antibiotics. She is feeling better. We are awaiting for placement with her. No new complaints. OBJECTIVE: VITAL SIGNS: Blood pressure 166/72, heart rate 80, respiratory rate 22, temperature 98.2, O2 saturations 98%. GENERAL: The patient is awake, comfortable, not in distress. SKIN: Adequate turgor. HEENT: Slightly pale conjunctivae. Anicteric sclerae. NECK: No neck mass. No carotid bruits. No JVD. CHEST: No deformities. LUNGS: Clear breath sounds. No wheezing. No crackles. HEART: Normal sinus rhythm. No murmurs, gallops, or rubs. ABDOMEN: Globular, soft, nontender, no masses. EXTREMITIES: Status post bilateral BKA. MEDICATIONS: June 12, 2020, reviewed. LABORATORY DATA: June 12, 2020, white count 9, hemoglobin 8.2, hematocrit 25.7. Sodium 135, potassium 3.1, chloride 95, carbon dioxide 28, BUN 23, creatinine 5.35, glucose 91, calcium 9. ASSESSMENT AND PLAN: 1. Endstage renal disease, stable. We will continue current hemodialysis regimen of Wednesday, Wednesday, and Wednesday. Tolerating said treatment. Fluid removal as tolerated. 2. Anemia-continuing weekly Epogen. P.r.n. blood transfusion. 3. Awaiting intermediate placement. Recheck CBC, base met in a.m. Job ID: [id number]
[2020-06-12] MEDS: Ferrous Sulfate 325 MG TAB PO SCH ×3 (10:25→18:06)
[2020-06-12] MEDS: Calcium Acetate 667 MG CAP PO SCH ×3 (10:25→18:06)
[2020-06-12] MEDS: Heparin 5,000 UNITS/ML VIAL SC SCH ×3 (10:26→20:30)
[2020-06-12] MEDS: HYDROcodone/Acetaminophen 5/325 mg Tablet PO PRN (10:31)
[2020-06-12] MEDS: Aspirin 81 mg Enteric Coated Tablet PO SCH (11:48)
[2020-06-12] MEDS: Gabapentin 300 MG CAP PO SCH (11:49)
[2020-06-12] MEDS: cefTRIAXone\\ROCEPHIN 1 GM in Sodium Chloride 0.9% 100 ML IVPB SCH (11:50)
--- NOTE | 2020-06-12 12:37 | PDOC.HOSPP ---
- Subjective Encounter Date: 06/12/20 Encounter Time: 10:20 Subjective: Patient seen in the dialysis area. She says uncomfortable with pain but vitals looks good and no sign of any pain or discomfort . she is agreeable for discharge e to the longterm facility versus rehab. She is not complaining today about wanting to go home. She understand that her spouse cannot able to take care of her. - Objective Vital Signs & Weight: Vital Signs (12 hours) Temp Pulse Resp BP Pulse Ox 06/12/20 07:20 98.3 F 74 16 132/63 97 06/12/20 03:27 98.2 F 80 22 H 166/72 H 98 Weight Admit Weight 154 lb Weight 155 lb 13.869 oz I&O: 06/11/20 06/12/20 06/13/20 06:59 06:59 06:59 Intake Total 990 1220 Output Total 0 0 Balance 990 1220 Result Diagrams: 06/12/20 04:13 06/12/20 04:13 Additional Labs: Accuchecks 06/12/20 06/12/20 06/11/20 11:21 06:17 20:11 POC Glucose 105 117 H 135 H 06/11/20 16:43 POC Glucose 127 H Hospitalist ROS - Medication Medications: Active Medications Generic Name Dose Route Start Last Admin Trade Name Freq PRN Reason Stop Dose Admin Acetaminophen 650 mg 06/08/20 02:20 06/09/20 05:30 Tylenol PO 650 mg Q4H PRN Administration Headache/Fever/Mild Pain (1-3) Hydrocodone Bitart/Acetaminophen 1 tab 06/09/20 09:24 06/12/20 10:31 [place] 5/325 PO 1 tab Q6H PRN Administration Pain (5-10) Aspirin 81 mg 06/08/20 09:00 06/12/20 11:48 Ecotrin PO 81 mg DAILY JONATHAN Administration Calcium Acetate 1,334 mg 06/08/20 08:00 06/12/20 11:48 Phoslo PO 1,334 mg TID-WM JONATHAN Administration Epoetin Marcelo-epbx 7,500 unit 06/08/20 10:45 06/08/20 15:34 Retacrit SC 7,500 unit Q7D JONATHAN Administration Ferrous Sulfate 325 mg 06/08/20 08:00 06/12/20 11:48 Feosol PO 325 mg TID-WM JONATHAN Administration Gabapentin 300 mg 06/11/20 09:00 06/12/20 11:49 Neurontin PO 300 mg DAILY JONATHAN Administration Heparin Sodium (Porcine) 5,000 units 06/07/20 21:00 06/12/20 10:26 Heparin SC Not Given TID JONATHAN Ceftriaxone Sodium 1 gm/ 100 mls @ 200 mls/hr 06/08/20 09:00 06/12/20 11:50 Sodium Chloride IVPB 100 mls Q24HR JONATHAN Administration Insulin Glargine 10 units/ 0.1 mls @ 0 mls/hr 06/08/20 21:00 06/11/20 20:37 Miscellaneous Medication SC 0.1 mls HS JONATHAN Administration Insulin Human Regular 0 units 06/07/20 20:33 06/10/20 17:23 Humulin R SC 2 unit .MODERATE SLIDING SC PRN Administration Moderate Correctional Scale Isosorbide Mononitrate 15 mg 06/08/20 09:00 06/12/20 11:49 Imdur Er PO 15 mg DAILY JONATHAN Administration Ondansetron HCl 4 mg 06/09/20 22:26 06/11/20 13:01 Zofran IVP 4 mg Q6H PRN Administration Nausea/Vomiting Pantoprazole Sodium 40 mg 06/08/20 09:00 06/12/20 11:48 Protonix PO 40 mg BID JONATHAN Administration Senna/Docusate Sodium 2 tab 06/10/20 22:10 06/11/20 21:47 Senokot S PO 2 tab BIDPRN PRN Administration Constipation - Exam General Appearance: NAD, awake alert Eye: PERRL ENT: normocephalic atraumatic Neck: supple Heart: RRR Respiratory: CTAB, normal chest expansion Gastrointestinal: soft, normal bowel sounds Extremities - other findings: Bilateral below-knee amputation Psychiatric: A&O x 3 Hosp A/P - Plan hypotension probably due to hypovolemia -Resolved -We will restart her home medications for blood pressure after dialysis completed and the blood pressure allows -Imdur Urinary tract infection -Cultures has been sent -On empiric antibiotic End-stage renal disease on hemodialysis -Plan for dialysis today. Abnormal troponin due to metabolic mismatch -Indeterminate level/demand ischemia Anemia of kidney disease On Retacrit Type 2 diabetes mellitus On Lantus as well as sliding scale insulin. -She has significant amount of pain in her left below-knee amputation wound site. It looks good. -Will try to optimize analgesic so that she can be discharged to inpatient rehab tomorrow. -She is legally blind. -She also needs dialysis -- her routine Wednesday - plan for discharge after Wednesday dialysis. She lives with her spouse. She was discharged to longterm facility after left below-knee amputation. I think she would benefit with a little bit more physical therapy in inpatient rehab. I am little concerned about sending her home with home health as she needs more help than just home health in terms of ongoing physical therapy and overall strength training given her recent surgery. Will await for the renal case manager's input on placement evaluation. Patient is clinically stable to transfer back to a longterm facility. She may not be able to get adequate help at home as she is transferred during the last discharge after the surgery to longterm facility. Pending bed availability at her previous longterm facility. Medically she is stable getting scheduled dialysis of Wednesday. Discussed with renal case manager Trying to see whether the rehab would take her. If not she would like to possibly go back to her longterm facility.
[2020-06-12] MEDS: HYDROcodone/Acetaminophen 10/325 mg Tablet PO PRN ×3 (13:53→20:46)
[2020-06-12] MEDS: Acetaminophen 325 MG TAB PO PRN (16:08)
[2020-06-12] MEDS: Insulin Glargine 10 UNITS in Pre-Filled Syringe 1 EACH SC SCH (20:31)
[2020-06-13 04:19] LABS: #Eosinphils 0.3 thou/uL (0.0-0.7); #Lymphocytes 1.7 thou/uL (1.20-3.40); #Neutrophils 5.2 thou/uL (1.40-6.50); %Basophils 0.3 % (0.0-1.0); %Eosinophils 3.2 % (0.0-10.0); %Lymphocytes 20.3 % (21.0-51.0); %Monocytes 12.4 % (0.0-10.0); %Neutrophils 63.8 % (42.0-75.0); Mean Corpuscular HGB CONC 30.9 g/dL (32.0-36.0); Mean Corpuscular Hemoglobin 31.7 pg (27.0-31.0); Mean Platelet Volume 7.4 fL (7.4-10.4); Platelet Count 360 thou/uL (130-400); RBC Distribution Width 14.7 % (11.5-14.5); Red Blood Cell (RBC) Count 2.54 mill/uL (4.20-5.40); White Blood Cell (WBC) Count 8.1 thou/uL (4.8-10.8)
[2020-06-13 04:38] LABS: Anion Gap 13 mmol/L (10-20); BUN (Urea Nitrogen) 13 mg/dL (9.8-20.1); Calc. Creatinine Clearance 17 mL/min (70-130); Calcium 9.2 mg/dL (7.8-10.44); Carbon Dioxide 29 mmol/L (23-31); Chloride 98 mmol/L (98-107); Estimated GFR-MDRD 12; Glucose 105 mg/dL (80-115); Potassium 3.1 mmol/L (3.5-5.1); Sodium 137 mmol/L (136-145)
[2020-06-13] MEDS ORDERED: Potassium Chloride 20 MEQ TAB PO SCH (08:30)
--- NOTE | 2020-06-13 08:57 | PRG ---
DATE OF SERVICE: 06/13/2020 SUBJECTIVE: Ms. Saldivar is a 59-year-old female with ESRD and currently on maintenance hemodialysis. We are following her up for her hemodialysis, management of her ESRD. She is doing well with the dialysis. She is tolerating said treatment. Recently, she had left BKA for gangrenous toes. She is doing well. Awaiting intermediate facility placement or rehab placement. No new complaints today. No chest pain or shortness of breath. OBJECTIVE: VITAL SIGNS: Blood pressure 134/62, heart rate 77, respiratory rate 16, temperature 98.5, O2 saturation 97%. GENERAL: Noted to be awake, alert, comfortable, not in distress. SKIN: Adequate turgor. HEENT: Slightly pale conjunctivae. Anicteric sclerae. NECK: No neck mass. No carotid bruits. No JVD. CHEST: No deformities. LUNGS: Clear breath sounds. No wheezing. No crackles. HEART: Normal sinus rhythm. No murmurs, gallops, or rubs. ABDOMEN: Globular, soft, nontender. No masses. EXTREMITIES: Status post bilateral BKA. MEDICATIONS: June 13, 2020, reviewed. LABORATORY DATA: June 13, 2020, white count 8.1, hemoglobin 8. Sodium 137, potassium 3.1, chloride 98, carbon dioxide 29, BUN 13, creatinine 3.96, glucose 105, calcium 9.2. ASSESSMENT AND PLAN: 1. End stage renal disease, stable. Continue current Wednesday, Wednesday, and Wednesday dialysis. Tolerating said treatment. Fluid removal only as tolerated. 2. Mild hypokalemia, p.r.n. potassium replacement. 3. Chronic anemia. Continuing weekly Epogen and iron supplementation. 4. Status post left BKA. Doing well. Wound dressing is dry and intact. Job ID: [id number]
[2020-06-13] MEDS: HYDROcodone/Acetaminophen 10/325 mg Tablet PO PRN ×2 (09:10→20:48)
[2020-06-13] MEDS: Gabapentin 300 MG CAP PO SCH (09:12)
[2020-06-13] MEDS: Ferrous Sulfate 325 MG TAB PO SCH ×3 (09:12→17:27)
[2020-06-13] MEDS: Heparin 5,000 UNITS/ML VIAL SC SCH ×3 (09:13→20:49)
[2020-06-13] MEDS: Aspirin 81 mg Enteric Coated Tablet PO SCH (09:13)
[2020-06-13] MEDS: Calcium Acetate 667 MG CAP PO SCH ×3 (09:13→17:27)
[2020-06-13] MEDS: cefTRIAXone\\ROCEPHIN 1 GM in Sodium Chloride 0.9% 100 ML IVPB SCH (09:14)
--- NOTE | 2020-06-13 12:23 | PDOC.HOSPP ---
- Subjective Encounter Date: 06/13/20 Encounter Time: 09:50 Subjective: Physical therapy is in the room. patient is cooperating with physical therapist bilateral below-knee amputation. She is moving her stumps without any discomfort. I have explained the discharge plan that she has no choice except going back to the alf facility due to her debilitation, family not be able to help her much at home. She understands the situation and we will wait for the bed availability. - Objective Vital Signs & Weight: Vital Signs (12 hours) Temp Pulse Resp BP Pulse Ox 06/13/20 07:10 98.5 F 77 16 134/62 97 06/13/20 04:48 98.4 F 83 16 122/58 L 93 L Weight Admit Weight 154 lb Weight 151 lb 14.376 oz I&O: 06/12/20 06/13/20 06/14/20 06:59 06:59 06:59 Intake Total 1220 600 Output Total 0 0 Balance 1220 600 Result Diagrams: 06/13/20 03:46 06/13/20 03:46 Additional Labs: Accuchecks 06/13/20 06/13/20 06/12/20 11:15 05:48 20:21 POC Glucose 158 H 112 H 128 H 06/12/20 18:19 POC Glucose 95 Hospitalist ROS - Medication Medications: Active Medications Generic Name Dose Route Start Last Admin Trade Name Freq PRN Reason Stop Dose Admin Acetaminophen 650 mg 06/08/20 02:20 06/12/20 16:08 Tylenol PO 650 mg Q4H PRN Administration Headache/Fever/Mild Pain (1-3) Hydrocodone Bitart/Acetaminophen 1 tab 06/12/20 13:11 06/13/20 09:10 Bronson 10/325 PO 1 tab Q4H PRN Administration Moderate Pain (4-6) Aspirin 81 mg 06/08/20 09:00 06/13/20 09:13 Ecotrin PO 81 mg DAILY JONATHAN Administration Calcium Acetate 1,334 mg 06/08/20 08:00 06/13/20 11:41 Phoslo PO 1,334 mg TID-WM JONATHAN Administration Epoetin Marcelo-epbx 7,500 unit 06/08/20 10:45 06/08/20 15:34 Retacrit SC 7,500 unit Q7D JONATHAN Administration Ferrous Sulfate 325 mg 06/08/20 08:00 06/13/20 11:41 Feosol PO 325 mg TID-WM JONATHAN Administration Gabapentin 300 mg 06/11/20 09:00 06/13/20 09:12 Neurontin PO 300 mg DAILY JONATHAN Administration Heparin Sodium (Porcine) 5,000 units 06/07/20 21:00 06/13/20 09:13 Heparin SC 5,000 units TID JONATHAN Administration Ceftriaxone Sodium 1 gm/ 100 mls @ 200 mls/hr 06/08/20 09:00 06/13/20 09:14 Sodium Chloride IVPB 100 mls Q24HR JONATHAN Administration Insulin Glargine 10 units/ 0.1 mls @ 0 mls/hr 06/08/20 21:00 06/12/20 20:31 Miscellaneous Medication SC 0.1 mls HS JONATHAN Administration Insulin Human Regular 0 units 06/07/20 20:33 06/10/20 17:23 Humulin R SC 2 unit .MODERATE SLIDING SC PRN Administration Moderate Correctional Scale Isosorbide Mononitrate 15 mg 06/08/20 09:00 06/13/20 09:13 Imdur Er PO 15 mg DAILY JONATHAN Administration Ondansetron HCl 4 mg 06/09/20 22:26 06/11/20 13:01 Zofran IVP 4 mg Q6H PRN Administration Nausea/Vomiting Pantoprazole Sodium 40 mg 06/08/20 09:00 06/13/20 09:13 Protonix PO 40 mg BID JONATHAN Administration Senna/Docusate Sodium 2 tab 06/10/20 22:10 06/11/20 21:47 Senokot S PO 2 tab BIDPRN PRN Administration Constipation - Exam General Appearance: NAD, awake alert Eye: PERRL ENT: normocephalic atraumatic Neck: supple Heart: RRR Respiratory: CTAB, normal chest expansion Gastrointestinal: soft, normal bowel sounds Extremities - other findings: Bilateral below-knee amputation Neurological: no new deficit Psychiatric: A&O x 3 Hosp A/P - Plan hypotension probably due to hypovolemia -Resolved -We will restart her home medications for blood pressure after dialysis completed and the blood pressure allows -Imdur Urinary tract infection -Cultures has been sent -On empiric antibiotic End-stage renal disease on hemodialysis -Plan for dialysis today. Abnormal troponin due to metabolic mismatch -Indeterminate level/demand ischemia Anemia of kidney disease On Retacrit Type 2 diabetes mellitus On Lantus as well as sliding scale insulin. -She has significant amount of pain in her left below-knee amputation wound site. It looks good. -Will try to optimize analgesic so that she can be discharged to inpatient rehab tomorrow. -She is legally blind. -She also needs dialysis -- her routine Wednesday - plan for discharge after Wednesday dialysis. She lives with her spouse. She was discharged to alf facility after left below-knee amputation. I think she would benefit with a little bit more physical therapy in inpatient rehab. I am little concerned about sending her home with home health as she needs more help than just home health in terms of ongoing physical therapy and overall strength training given her recent surgery. Will await for the bilingual case manager's input on placement evaluation. Patient is clinically stable to transfer back to a alf facility. She may not be able to get adequate help at home as she is transferred during the last discharge after the surgery to alf facility. Pending bed availability at her previous alf facility. Medically she is stable getting scheduled dialysis of Wednesday. Discussed with bilingual case manager Trying to see whether the rehab would take her. If not she would like to possibly go back to her alf facility. Medically stable for discharge. Undergoing scheduled hemodialysis. On Fridays. I have explained the discharge plan that she has no choice except going back to the alf facility due to her debilitation, family not be able to help her much at home. She understands the situation and we will wait for the bed availability.
[2020-06-13 14:13] VITALS: BMI 31.7
[2020-06-13] MEDS: Insulin Glargine 10 UNITS in Pre-Filled Syringe 1 EACH SC SCH (20:51)
[2020-06-14] MEDS: Ondansetron PF 4 MG/2 ML Vial IVP PRN (04:38)
[2020-06-14 04:50] LABS: #Eosinphils 0.3 thou/uL (0.0-0.7); #Lymphocytes 2.1 thou/uL (1.20-3.40); #Monocytes 1.2 thou/uL (0.11-0.59); #Neutrophils 6.2 thou/uL (1.40-6.50); %Basophils 0.2 % (0.0-1.0); %Eosinophils 3.4 % (0.0-10.0); %Lymphocytes 21.1 % (21.0-51.0); %Monocytes 12.2 % (0.0-10.0); %Neutrophils 63.2 % (42.0-75.0); Hemoglobin 8.4 g/dL (12.0-16.0); Mean Corpuscular HGB CONC 32.8 g/dL (32.0-36.0); Mean Corpuscular Hemoglobin 33.7 pg (27.0-31.0); Mean Platelet Volume 7.3 fL (7.4-10.4); Platelet Count 365 thou/uL (130-400); RBC Distribution Width 14.6 % (11.5-14.5); Red Blood Cell (RBC) Count 2.49 mill/uL (4.20-5.40); White Blood Cell (WBC) Count 9.9 thou/uL (4.8-10.8)
[2020-06-14 05:07] LABS: Anion Gap 14 mmol/L (10-20); BUN (Urea Nitrogen) 25 mg/dL (9.8-20.1); Calc. Creatinine Clearance 11 mL/min (70-130); Calcium 9.7 mg/dL (7.8-10.44); Carbon Dioxide 27 mmol/L (23-31); Chloride 99 mmol/L (98-107); Estimated GFR-MDRD 8; Glucose 96 mg/dL (80-115); Potassium 3.4 mmol/L (3.5-5.1); Sodium 137 mmol/L (136-145)
[2020-06-14] MEDS: HYDROcodone/Acetaminophen 10/325 mg Tablet PO PRN ×2 (08:40→13:47)
--- NOTE | 2020-06-14 08:46 | PRG ---
DATE OF SERVICE: 06/14/2020 SUBJECTIVE: Ms. Saldivar is a 59-year-old female with ESRD and followed up by the [facility] for maintenance hemodialysis. I have scheduled her for her regular dialysis today. No acute events noted last night. She was initially admitted for osteomyelitis of the left foot. She underwent a left BKA and is doing well. She did not qualify for rehab placement. No acute events noted. OBJECTIVE: VITAL SIGNS: Blood pressure 109/57, heart rate 77, respiratory rate 16, temperature 98.2, O2 saturation 98%. GENERAL: The patient is awake, alert, comfortable, not in distress. SKIN: Adequate turgor. HEENT: Slightly pale conjunctivae. Anicteric sclerae. No neck mass. No carotid bruits. No JVD. CHEST: No deformities. LUNGS: Clear breath sounds. No wheezing. No crackles. HEART: Normal sinus rhythm. No murmurs, no gallops, no rubs. ABDOMEN: Globular, soft, nontender. No masses. EXTREMITIES: Bilateral leg amputation. MEDICATIONS: Medications of June 14, 2020, reviewed. LABORATORY DATA: Laboratories of June 14, 2020; white count 9.9, hemoglobin 8.4. Sodium 137, potassium 3.4, chloride 99, carbon dioxide 27, BUN 25, creatinine 5.7, glucose 96, calcium 9.7. ASSESSMENT AND PLAN: 1. End-stage renal disease, stable. We will continue current Wednesday, Wednesday, and Wednesday dialysis. Fluid removal as tolerated. 2. Anemia. We are continuing her weekly Epogen regimen. She is also on iron supplementation. 3. Status post left foot osteomyelitis - status post left BKA, doing well. Job ID: [id number]
[2020-06-14] MEDS: Ferrous Sulfate 325 MG TAB PO SCH ×3 (10:52→17:13)
[2020-06-14] MEDS: Calcium Acetate 667 MG CAP PO SCH ×3 (10:52→17:13)
[2020-06-14] MEDS: Gabapentin 300 MG CAP PO SCH (12:49)
[2020-06-14] MEDS: cefTRIAXone\\ROCEPHIN 1 GM in Sodium Chloride 0.9% 100 ML IVPB SCH (12:49)
[2020-06-14] MEDS: Heparin 5,000 UNITS/ML VIAL SC SCH ×2 (12:50→15:45)
[2020-06-14] MEDS: Aspirin 81 mg Enteric Coated Tablet PO SCH (12:51)
[2020-06-14] MEDS: Acetaminophen 325 MG TAB PO PRN (12:57)
[2020-06-14 16:35] VITALS: TEMP 98.6
[2020-06-14 16:43] VITALS: BP 99/59
--- NOTE | 2020-06-15 08:12 | DIS ---
DATE OF ADMISSION: 06/07/2020 DATE OF DISCHARGE: 06/14/2020 DISCHARGE DIAGNOSES: 1. Urinary tract infection, cultures negative. 2. Recent below-knee amputation. 3. Anemia of kidney disease. 4. Abnormal troponin due to metabolic mismatch. 5. End-stage renal disease, on hemodialysis. DISCHARGE MEDICATIONS: There is no change in her previous home medications, except the Zofran has been discontinued as she is getting both Phenergan as well as Zofran. PHYSICAL EXAMINATION: VITAL SIGNS: On the day of discharge, her temperature is 98.1, pulse 82, blood pressure 127/58, saturating 100% with 2 L oxygen by nasal cannula. GENERAL: I have seen her in the dialysis area. She appears well. She has no complaints. She did have good p.o. intake today as well as bowel movement. Even the abdomen is slightly distended and that seems to be the baseline. It was soft and it is nontender. Good bowel sounds. CARDIOVASCULAR: Regular rate and rhythm without murmurs. LUNGS: With anterior auscultation. Did not hear any adventitious lung sounds. HOSPITAL COURSE: This is a 59-year-old female, who had a left below-knee amputation on June 03 and discharged on June 06 for shelter facility, brought in because of low blood pressure and hypoxia during the dialysis time. She was ruled out for COVID. She also seem to have signs of urinary tract infection, though cultures were negative, both blood and urine cultures. She did receive ceftriaxone for the last one week and completed the course and she does not require any further antibiotics. She is hemodynamically stable. We will transfer her back to her shelter facility. Regarding her left below-knee amputation, she is expected to follow up with Dr. Gonzalez per their clinic appointment. DISCHARGE INSTRUCTIONS: 1. Activity with supervision as she has both bilateral below-knee amputation. 2. Renal diet. 3. Follow up with PCP in 1 week. Discharge time took over 35 minutes. Job ID: [id number] [facility]
--- NOTE | 2020-06-17 09:14 | PQF ---
CLINICAL DOCUMENTATION CLARIFICATION FORM: Dear : Lenora Arteaga Date / Time: 06/17/2020 09:13 Please exercise your independent, professional judgment in responding to the clarification form. Clinical indicators are provided on the bottom of this form for your review Please check appropriate box(es) to clarify if the following diagnosis has been ruled in our ruled out: Sepsis [ ] Ruled in diagnosis [ ] Continue to treat [ ] Resolved [ x] Ruled out diagnosis [ ] Improving [ ] Cannot rule out diagnosis [ ] Other diagnosis [ ] Unable to determine If ruled in can you please clarify if: [ ] Sepsis is a complication of recent left BKA [ ] Sepsis is not a complication of recent left BKA [ ] Unable to determine Physician Signature: Date/Time: For continuity of documentation, please document condition throughout progress notes and discharge summary. Thank You. To be completed by CDI/Coding staff for physician review: Present Clinical Indicators - Signs / Symptoms / Labs Results and Location in Medical Record [x] could be early sepsis HP 06/07 [x] fever ED Notes 06/07 [x] CC: low blood pressure HP 06/07 [x] s/p left BKA ED Notes 06/07 [x] hypotension probably due to hypovolemia PN 06/13 [x] Temp=97.4 Pulse=81 Respi=20 JU=801/59 Vital Signs 06/07 [x] WBC: 06/07=15.9 06/08=12.7 Labs 06/07 [x] Lactic: 1.3 Labs 06/07 [x] blood culture: no growth Collected 06/07 [x] urine culture: no growth Collected 06/07 Present Risk Factors Results and Location in Medical Record [x] 59 years old female ED Notes 06/07 [x] DM ED Notes 06/07 [x] ESRD HP 06/07 [x] s/p left BKA HP 06/07 [x] UTI HP 06/07 Present Treatments Results and Location in Medical Record [x] Maxipime 2gm IV DEC 23 [x] Rocephin 1gm IV DEC 23 [x] IVF DEC 23 [x] Blood culture Collected 06/07 [x] Urine culture Collected 06/07 CDS/Manager Gaming Signature: Leo Jackman Phone #: [facility] [phone] Date/Time: 06/17/20 09:13 This is a permanent part of the Medical Record [facility]
--- NOTE | 2020-06-17 09:16 | PQF ---
CLINICAL DOCUMENTATION CLARIFICATION FORM: Dear : Lenora Arteaga Date / Time: 06/17/2020 09:15 Please exercise your independent, professional judgment in responding to the clarification form. Clinical indicators are provided on the bottom of this form for your review Please check appropriate box(es): [ x] Hypovolemia as a complication of dialysis [ ] Hypovolemia as a complication of recent left BKA [ ] Hypovolemia not a complication of recent left BKA and dialysis [ ] Other diagnosis [ ] Unable to determine Physician Signature: Date/Time: For continuity of documentation, please document condition throughout progress notes and discharge summary. Thank You. To be completed by CDI/Coding staff for physician review: Present Clinical Indicators - Signs / Symptoms / Labs Results and Location in Medical Record [x] CC: low blood pressure HP 06/07 [x] s/p left BKA ED Notes 06/07 [x] hypotension probably due to hypovolemia PN 06/13 [x] Temp=97.4 Pulse=81 Respi=20 BU=887/59 Vital Signs 06/07 [x] while undergoing dialysis was found to be hypotensive and hypoxic HP 06/07 Present Risk Factors Results and Location in Medical Record [x] 59 years old female ED Notes 06/07 [x] DM ED Notes 06/07 [x] ESRD HP 06/07 [x] s/p left BKA HP 06/07 [x] UTI HP 06/07 Present Treatments Results and Location in Medical Record [x] Maxipime 2gm IV DEC 23 [x] Rocephin 1gm IV DEC 23 [x] IVF DEC 23 CDS/Administrative Support Manager Signature: Leo Jackman Phone #: [phone] Date/Time06/17/20 09:15 This is a permanent part of the Medical Record [facility]
== END 2020-06-14 17:25 | DRG 811 ==
LOC: ERS 17:16 → 2NO 19:42
PROVIDERS: ADMIT Internal Medicine; ATTEND Internal Medicine
PROC: 5A1D70Z Performance of Urinary Filtration, Intermittent, Less than 6 Hours Per Day (ICD-10-PCS; principal; 2020-06-08)
DX: T80.89XA Other complications following infusion, transfusion and therapeutic injection, initial encounter (principal); N18.6 End stage renal disease; I13.2 Hypertensive heart and chronic kidney disease with heart failure and with stage 5 chronic kidney disease, or end stage renal disease; I50.32 Chronic diastolic (congestive) heart failure; N39.0 Urinary tract infection, site not specified; E86.1 Hypovolemia; E11.22 Type 2 diabetes mellitus with diabetic chronic kidney disease; E11.51 Type 2 diabetes mellitus with diabetic peripheral angiopathy without gangrene; E78.5 Hyperlipidemia, unspecified; E78.00 Pure hypercholesterolemia, unspecified; R09.02 Hypoxemia; D63.1 Anemia in chronic kidney disease; E87.6 Hypokalemia; H54.8 Legal blindness, as defined in USA; R79.89 Other specified abnormal findings of blood chemistry; Z89.512 Acquired absence of left leg below knee; Z99.2 Dependence on renal dialysis; Z89.611 Acquired absence of right leg above knee; Z90.710 Acquired absence of both cervix and uterus; Y84.8 Other medical procedures as the cause of abnormal reaction of the patient, or of later complication, without mention of misadventure at the time of the procedure
CPT/HCPCS: 36415; 36416; 51701; 71045; 71275; 74018; 74177; 80048; 80053; 81003; 81015; 82553; 83605; 84484; 85025; 87040; 87086; 87635; 90935; 96365; G0257; J0692; J0696; J1644; J1815; J2270; J2405; J3490; Q5105; Q9967; U0003

== ENCOUNTER 2020-07-26 10:21 | Emergency (ER) | payer MEDICARE, MEDICAID ==
[2020-07-26 11:08] LABS: #Basophils 0.1 thou/uL (0.0-0.2); #Eosinphils 0.1 thou/uL (0.0-0.7); #Lymphocytes 3.5 thou/uL (1.20-3.40); #Monocytes 1.5 thou/uL (0.11-0.59); #Neutrophils 12.8 thou/uL (1.40-6.50); %Basophils 0.3 % (0.0-1.0); %Eosinophils 0.8 % (0.0-10.0); %Lymphocytes 19.2 % (21.0-51.0); %Monocytes 8.6 % (0.0-10.0); %Neutrophils 71.1 % (42.0-75.0); Hemoglobin 9.6 g/dL (12.0-16.0); Mean Corpuscular HGB CONC 33.6 g/dL (32.0-36.0); Mean Corpuscular Hemoglobin 32.8 pg (27.0-31.0); Mean Corpuscular Volume 97.7 fL (78.0-98.0); Mean Platelet Volume 7.8 fL (7.4-10.4); Platelet Count 348 thou/uL (130-400); RBC Distribution Width 13.6 % (11.5-14.5); Red Blood Cell (RBC) Count 2.92 mill/uL (4.20-5.40)
--- NOTE | 2020-07-26 11:09 | RAD ---
Exam: Chest one view HISTORY:Altered mental status. Hypotension Comparison: 06/07/2020 FINDINGS: Cardiac silhouette: Normal Aorta: Unremarkable Pulmonary vessels: Normal Costophrenic angles: Clear LUNGS: No masses or consolidation. Diminished lung volumes, likely due to a poor inspiratory effort. Pneumothorax: None Osseous abnormalities: None IMPRESSION: No acute cardiopulmonary process.
[2020-07-26 11:23] LABS: ALT (SGPT) Less than 7 U/L (8-55); AST (SGOT) 14 U/L (5-34); Albumin 3.3 g/dL (3.4-4.8); Alkaline Phosphatase 108 U/L (40-110); Anion Gap 16 mmol/L (10-20); BUN (Urea Nitrogen) 41 mg/dL (9.8-20.1); Bilirubin, Total 0.4 mg/dL (0.2-1.2); CK (CPK) 33 U/L (29-168); Calc. Creatinine Clearance 0 mL/min (70-130); Carbon Dioxide 15 mmol/L (23-31); Chloride 104 mmol/L (98-107); Estimated GFR-MDRD 8; Globulin 3.5 g/dL (2.4-3.5); Glucose 215 mg/dL (80-115); Lipase 24 U/L (8-78); Protein, Total 6.8 g/dL (6.0-8.3); Sodium 133 mmol/L (136-145)
[2020-07-26 11:41] LABS: Potassium 2.1 mmol/L (3.5-5.1)
[2020-07-26] MEDS ORDERED: Vancomycin 1 GM/200 ML BAG ONE (12:11)
[2020-07-26] MEDS ORDERED: Norepinephrine 8 MG/0.9% NS 250 ML ONE (12:11)
[2020-07-26] MEDS ORDERED: Cefepime 2 GM VIAL ONE (12:11)
--- NOTE | 2020-07-26 12:26 | RAD ---
PORTABLE CHEST 1 VIEW: Date: 07/26/2020 Time: 1154 hours HISTORY: Hypotension, altered mental status. Central line placement. FINDINGS/IMPRESSION: Comparison made with earlier exam at 1058 hours from the same date. There has been interval placement of a right internal jugular central venous catheter with tip in the projection of the SVC. No pneumothorax is seen. The remainder of the exam is otherwise stable. POS: AH
[2020-07-26] MEDS ORDERED: Potassium Chloride 20 MEQ in Premix Bag 1 BAG IVPB SCH (12:45)
[2020-07-26] MEDS ORDERED: metroNIDAZOLE 500 MG in Premix Bag 1 BAG IVPB SCH (13:15)
--- NOTE | 2020-07-26 13:27 | CT ---
EXAM: CT ABDOMEN AND PELVIS HISTORY: Abdominal pain COMPARISON: 06/07/2020 Procedure: Multiple contiguous axial images were obtained and a CT of the abdomen and pelvis with IV contrast. C oronal reformats were performed. FINDINGS: Lower Chest: Scarring and atelectasis in the lung bases. Vessels: Normal caliber aorta. Heart: Normal heart size. No significant pericardial effusion. Abdomen: Portal vein:Patent. Gallbladder: Surgically absent. Liver: within normal limits. Pancreas: within normal limits. Spleen: within normal limits. Adrenals: within normal limits. Kidneys: Symmetric enhancement. No obstructive uropathy. Bilateral nonobstructing intrarenal calculi. Peritoneum: No ascites or free air, no fluid collection. Bowel: Limited evaluation by the lack of oral contrast. Multiple dilated fluid-filled loops of small bowel. Normal ileocecal junction. Transition point appears to be in the right hemiabdomen. Normal caliber appendix. Colon is not distended. However, there is lack of well-formed stool in the colon. R ather there is fluid attenuation throughout the colon. Diffusely, there is enhancement of the small bowel and colon mucosa. Mesentery and Retroperitoneum: No enlarged mesenteric or retroperitoneal lymph nodes. Abdominal Wall: within normal limits. Pelvis: Reproductive Organs: Surgically absent uterus. Pelvis: No mass, lymphadenopathy, free air or free fluid. Bladder: within normal limits. Bones: within normal limits. IMPRESSION: Distended small bowel loops, fluid-filled. There are also fluid-filled loops of colon. There is enhan cement involving multiple loops of small bowel and colon. Correlate for enterocolitis. Transcribed Date/Time: 07/26/2020 1:35 PM
--- NOTE | 2020-07-26 14:32 | CT ---
CT OF LEFT LOWER EXTREMITY PERFORMED WITH CONTRAST: HISTORY: The patient has type 2 diabetes, end stage renal disease, bilateral lower extremity BKA with recent w ound procedure on the left now with pain. FINDINGS: The patient is status post below the knee amputation. I do not see any signs of any defined fluid co llection at this time. There is no air within the soft tissue. Vascular calcifications are noted wi th generalized muscle atrophy. IMPRESSION: Status post below knee amputation. No acute bony or soft tissue changes. POS: MCKENZIE
== END 2020-07-26 14:55 | disposition short-term general hospital (02) ==
LOC: ERS 10:21
DX: A41.9 Sepsis, unspecified organism (principal); R65.21 Severe sepsis with septic shock; E87.6 Hypokalemia; K52.9 Noninfective gastroenteritis and colitis, unspecified; E11.9 Type 2 diabetes mellitus without complications; E78.5 Hyperlipidemia, unspecified; E78.00 Pure hypercholesterolemia, unspecified; I10 Essential (primary) hypertension; Z99.2 Dependence on renal dialysis; Z79.4 Long term (current) use of insulin; Z79.82 Long term (current) use of aspirin; Z79.899 Other long term (current) drug therapy
CPT/HCPCS: 36415; 36556; 71045; 74177; 80053; 82550; 83605; 83690; 83880; 84484; 85025; 87040; 93005; 96361; 96365; 96366; 96367; J0692; J3370

== ENCOUNTER 2020-10-19 15:08 | Emergency (ER) | payer MEDICARE, MEDICAID ==
[2020-10-19 15:55] LABS: Hemoglobin 11.7 g/dL (12.0-16.0); Mean Corpuscular Hemoglobin 30.8 pg (27.0-31.0); Mean Corpuscular Volume 96.3 fL (78.0-98.0); Mean Platelet Volume 6.6 fL (7.4-10.4); Platelet Count 239 thou/uL (130-400); RBC Distribution Width 15.8 % (11.5-14.5); Red Blood Cell (RBC) Count 3.81 mill/uL (4.20-5.40)
[2020-10-19 16:17] LABS: Band 4 % (5-11); Lymphocytes 12 % (21-51); MDiff Complete? YES; Monocytes 5 % (0-10); Neutrophil 44 % (42-75); Platelet Morphology Comment Appears Adequate; Polychromasia SLIGHT = 2-3 cells (100X) (0-2/hpf); Reactive Lymphocytes 35 % (0-10); Reflex for Review?? NO; Target Cells SLIGHT = 2-5 cells (100X) (0-1/hpf)
[2020-10-19 16:18] LABS: ALT (SGPT) 10 U/L (8-55); AST (SGOT) 20 U/L (5-34); Albumin 2.6 g/dL (3.4-4.8); Alkaline Phosphatase 190 U/L (40-110); Anion Gap 13 mmol/L (10-20); BUN (Urea Nitrogen) 14 mg/dL (9.8-20.1); Bilirubin, Total 0.3 mg/dL (0.2-1.2); CK (CPK) 20 U/L (29-168); Calc. Creatinine Clearance 0 mL/min (70-130); Calcium 8.3 mg/dL (7.8-10.44); Carbon Dioxide 24 mmol/L (23-31); Chloride 110 mmol/L (98-107); Globulin 3.7 g/dL (2.4-3.5); Glucose 131 mg/dL (80-115); Protein, Total 6.3 g/dL (6.0-8.3); Sodium 144 mmol/L (136-145)
[2020-10-19 16:22] LABS: Potassium 2.5 mmol/L (3.5-5.1)
[2020-10-19 16:34] LABS: CKMB 1.4 ng/mL (0-6.6)
--- NOTE | 2020-10-19 16:38 | RAD ---
EXAM: CHEST ONE VIEW PORTABLE: 10/19/20 HISTORY: Shortness of breath. COMPARISON: 08/07/20 FINDINGS: Heart size is borderline. Mild bilateral vascular congestion but no confluent pneumonia, overt edema, or pleural effusions. IMPRESSION: Mild bilateral vascular congestion without other acute process. POS: RRE
[2020-10-19 20:08] LABS: CKMB 1.2 ng/mL (0-6.6)
== END 2020-10-19 22:00 | disposition home or self-care (01) ==
LOC: ERS 15:08
DX: I12.9 Hypertensive chronic kidney disease with stage 1 through stage 4 chronic kidney disease, or unspecified chronic kidney disease (principal); E11.22 Type 2 diabetes mellitus with diabetic chronic kidney disease; N18.9 Chronic kidney disease, unspecified; E78.5 Hyperlipidemia, unspecified; E78.00 Pure hypercholesterolemia, unspecified; Z99.2 Dependence on renal dialysis; Z79.899 Other long term (current) drug therapy
CPT/HCPCS: 36415; 71045; 80053; 82550; 82553; 83605; 84484; 85025; 93005

== ENCOUNTER 2020-11-09 16:08 | Inpatient (IN) | payer MEDICARE, MEDICAID ==
[2020-11-09] MEDS ORDERED: Ondansetron PF 4 MG/2 ML Vial ONE ×2 (16:42→17:31)
[2020-11-09] MEDS ORDERED: Fentanyl 100 MCG/2 ML VIAL ONE (17:56)
[2020-11-09] MEDS ORDERED: Cefepime 2 GM VIAL ONE (17:59)
[2020-11-09] MEDS ORDERED: Vancomycin 1 GM/200 ML BAG ONE (17:59)
[2020-11-09] MEDS ORDERED: Promethazine HCl 25 MG/ML VIAL ONE (17:59)
--- NOTE | 2020-11-09 18:10 | RAD ---
Chest one view HISTORY: Chest pain. COMPARISON: 10/19/2020. FINDINGS: Cardiac silhouette is magnified by projection. Pulmonary vasculature are unremarkable. Mediastinum is midline. No lobar consolidation or evidence of pneumothorax. IMPRESSION : No abnormalities are demonstrated.
[2020-11-09 18:14] LABS: Mean Corpuscular HGB CONC 30.6 g/dL (32.0-36.0); Mean Corpuscular Hemoglobin 30.7 pg (27.0-31.0); Mean Platelet Volume 6.8 fL (7.4-10.4); Platelet Count 320 thou/uL (130-400); RBC Distribution Width 15.8 % (11.5-14.5); Red Blood Cell (RBC) Count 4.56 mill/uL (4.20-5.40)
[2020-11-09 18:26] LABS: Anisocytosis SLIGHT = 6-15 cells (100X) (0-5/hpf); Band 4 % (5-11); Lymphocytes 46 % (21-51); MDiff Complete? YES; Macrocytosis SLIGHT = 6-15 cells (100X) (0-5/hpf); Monocytes 4 % (0-10); Neutrophil 46 % (42-75); Platelet Morphology Comment Appears Adequate; Polychromasia SLIGHT = 2-3 cells (100X) (0-2/hpf); White Blood Cell (WBC) Count 13.7 thou/uL (4.8-10.8)
--- NOTE | 2020-11-09 18:32 | CT ---
CT abdomen and pelvis noncontrast HISTORY: Abdominal pain. Diarrhea. COMPARISON: 08/02/2020. FINDINGS: Mild atelectasis at the left lung base. Gallbladder is surgically absent. Each renal collec ting system, ureter, and urinary bladder are decompressed. Calcification at each kidney favored to be arterial. Schmorl's node through the L4 superior endplate again demonstrated. Lack of contrast limits evaluation of the soft tissues. A large amount of gas is present within the p ortal venous system, including the main portal vein. Gas is present within the right lower quadrant mesenteric veins and within the wall of small bowel loops in the right lower quadrant. No free air or free fluid. Gas and fluid distention of the distal colon and rectum. Retroaortic left renal vein. IMPRESSION : Pneumatosis distal small bowel with large amount of portal venous gas. Correlate for ischemia/necroti c distal small bowel. Findings were called to Dr. Lima in the emergency department at 1825 hours. Code CR.
[2020-11-09 18:36] LABS: ALT (SGPT) 8 U/L (8-55); AST (SGOT) 21 U/L (5-34); Alkaline Phosphatase 163 U/L (40-110); Anion Gap 18 mmol/L (10-20); BUN (Urea Nitrogen) 26 mg/dL (9.8-20.1); Bilirubin, Total 0.4 mg/dL (0.2-1.2); Calc. Creatinine Clearance 0 mL/min (70-130); Calcium 9.2 mg/dL (7.8-10.44); Carbon Dioxide 18 mmol/L (23-31); Chloride 109 mmol/L (98-107); Globulin 4.8 g/dL (2.4-3.5); Glucose 91 mg/dL (80-115); Lipase 17 U/L (8-78); Magnesium 1.9 mg/dL (1.6-2.6); Potassium 3.5 mmol/L (3.5-5.1); Protein, Total 7.8 g/dL (5.8-8.1); Sodium 141 mmol/L (136-145)
--- NOTE | 2020-11-09 19:16 | RAD ---
Abdomen one view HISTORY: Nasogastric tube placement. FINDINGS: Proximal sidehole of the nasogastric tube is at the level of the left hemidiaphragm. There is gaseous distention of the stomach. Peripherally branching lucencies project over the upper l iver. Metallic clips over the gallbladder fossa. IMPRESSION : Nasogastric tube should probably be advanced 5-10 cm for better positioning. Portal venous gas, better detailed on CT abdomen.
[2020-11-09] MEDS ORDERED: Acetaminophen 650 MG Suppository PR PRN (19:19)
[2020-11-09] MEDS ORDERED: Calcium Carbonate 500 MG ChewTAB PO PRN (19:19)
[2020-11-09] MEDS ORDERED: Ondansetron ODT 4 MG TAB PO PRN (19:19)
--- NOTE | 2020-11-09 19:28 | PDOC.HHP ---
Hospitalist HPI - History of Present Illness abdominal pain History of Present Illness: Case of an 59y/o female with a pmhx who esrd on h/d, DM, CAD, pvd, diastolic chf and hld who comes to hospital due to abdominal pain. patient is a poor historian, refers 4-day history of intermittent nausea vomiting and watery diarrhea, nonbloody, nonbilious, pain is described as 9/10 of intensity located in the LLQ and is constant and non radiating. Patient has been unable to keep anything down over the past 24 hours. Patient also notes chest tightness no radiation. Patient has not taken any medication for her vomiting. Patient denies any urinary symptoms or vaginal discharge. Patient denies fever/chills dysuria or cough. Patient has been getting wound care for her gluteal wound. Hospitalist ROS - Review of Systems All other systems reviewed; all pertinent +/- noted in HPI/Subj Hospitalist History - Past Medical History Renal/: reports: Other (ESRD/HD) Endocrine: reports: Diabetes - Past Surgical History Past Surgical History: reports: (x5), Hysterectomy, Other (Dialysis shunt to right chest fistula to left arm bilateral eye surgeries. Bilateral BKA's.) - Family History Family History: reports: diabetes mellitus, hyperlipidemia, hypertension - Social History Alcohol: reports: None Drugs: reports: none - Exam General Appearance: ill appearing Eye: anicteric sclera ENT: normocephalic atraumatic, no oropharyngeal lesions Neck: supple, symmetric, no JVD Heart: RRR, no murmur, no gallops, no rubs Respiratory: CTAB, no wheezes, no rales, no ronchi Gastrointestinal: soft, normal bowel sounds, tender to palpation, distended Extremities - other findings: bl bka Skin: normal turgor, no lesions, no rashes Neurological: cranial nerve grossly intact, normal sensation to touch, no weakness Musculoskeletal: normal tone Psychiatric: normal affect, normal behavior, A&O x 3 Hospitalist Results - Labs Result Diagrams: 11/09/20 17:50 11/09/20 17:55 Lab results: WBC 13.7 thou/uL (4.8-10.8) H 11/09/20 17:50 Hgb 14.0 g/dL (12.0-16.0) 11/09/20 17:50 Hct 45.8 % (36.0-47.0) 11/09/20 17:50 MCV 100.0 fL (78.0-98.0) H 11/09/20 17:50 Plt Count 320 thou/uL (130-400) 11/09/20 17:50 Band Neuts % (Manual) 4 % (5-11) L 11/09/20 17:50 Sodium 141 mmol/L (136-145) 11/09/20 17:55 Potassium 3.5 mmol/L (3.5-5.1) 11/09/20 17:55 Chloride 109 mmol/L (98-107) H 11/09/20 17:55 Carbon Dioxide 18 mmol/L (23-31) L 11/09/20 17:55 BUN 26 mg/dL (9.8-20.1) H 11/09/20 17:55 Creatinine 3.64 mg/dL (0.6-1.1) H 11/09/20 17:55 Glucose 91 mg/dL (80-115) 11/09/20 17:55 Lactic Acid 1.9 mmol/L (0.5-2.2) 11/09/20 17:50 Calcium 9.2 mg/dL (7.8-10.44) 11/09/20 17:55 Total Bilirubin 0.4 mg/dL (0.2-1.2) 11/09/20 17:55 AST 21 U/L (5-34) 11/09/20 17:55 ALT 8 U/L (8-55) 11/09/20 17:55 Alkaline Phosphatase 163 U/L (40-110) H 11/09/20 17:55 CK-MB (CK-2) 1.0 ng/mL (0-6.6) 11/09/20 17:55 Troponin I 0.037 ng/mL (< 0.028) H 11/09/20 17:55 B-Natriuretic Peptide 165.1 pg/mL (0-100) H 11/09/20 17:50 Serum Total Protein 7.8 g/dL (5.8-8.1) 11/09/20 17:55 Albumin 3.0 g/dL (3.4-4.8) L 11/09/20 17:55 Lipase 17 U/L (8-78) 11/09/20 17:55 Hospitalist H&P A/P - Problem (1) Pneumatosis intestinalis Code(s): K63.89 - OTHER SPECIFIED DISEASES OF INTESTINE Status: Acute (2) Nausea & vomiting Code(s): R11.2 - NAUSEA WITH VOMITING, UNSPECIFIED Status: Acute (3) Diabetes mellitus Code(s): E11.9 - TYPE 2 DIABETES MELLITUS WITHOUT COMPLICATIONS Status: Chronic Qualifiers: Diabetes mellitus type: type 2 Diabetes mellitus complication status: with kidney complications (4) Diastolic congestive heart failure Code(s): I50.30 - UNSPECIFIED DIASTOLIC (CONGESTIVE) HEART FAILURE Status: Chronic Qualifiers: (5) ESRD (end stage renal disease) on dialysis Code(s): N18.6 - END STAGE RENAL DISEASE; Z99.2 - DEPENDENCE ON RENAL DIALYSIS Status: Chronic (6) HLD (hyperlipidemia) Code(s): E78.5 - HYPERLIPIDEMIA, UNSPECIFIED Status: Chronic Qualifiers: Hyperlipidemia type: unspecified Qualified Code(s): E78.5 - Hyperlipidemia, unspecified (7) HTN (hypertension) Code(s): I10 - ESSENTIAL (PRIMARY) HYPERTENSION Status: Chronic Qualifiers: (8) Peripheral artery disease Code(s): I73.9 - PERIPHERAL VASCULAR DISEASE, UNSPECIFIED Status: Chronic - Plan Plan: case of an 59y/o female who presented with acute abdominal pain, ct showed pneumatosis intestinalis pneumatosis intestinalis - gen surgery called by ED, stated no emergent surgery needed at this time. wanted to follow as advanced manufacturing consultant - bowel rest - ngt - will start zosyn - normal LA - gentle hydration - monitor v/s - npo - pain management - f/u cultures diarrhea - watery diarrhea observed by me - recent use of abx for uti + OM - will test for c dif + cultures + wbc in stool nausea + vomiting - symptomatic tx prn esrd - h/d on wednesday and wednesday - Dr Monk patient - nephro consulted DM -npo -ss+acc q 6hr elevated troponin - will trend gluteal wound - continue wound care
[2020-11-09] MEDS ORDERED: HumaLOG 300 UNITS/3 ML VIAL SC PRN (19:35)
[2020-11-09] MEDS ORDERED: Dextrose 5% in Water 1,000 ML IV PRN (19:35)
--- NOTE | 2020-11-09 19:44 | RAD ---
Abdomen one view HISTORY: Nasogastric tube adjustment. FINDINGS: The distal tip and sidehole of the nasogastric tube now project over the gastric body and t he left abdomen. Portal venous gas and other findings are stable.
[2020-11-09] MEDS ORDERED: Piperacillin/Tazobactam 1.125 GM in Sodium Chloride 0.9% 100 ML IVPB SCH (20:00)
[2020-11-09 20:19] LABS: Bacteria/HPF 4+ HPF (None Seen); Bilirubin Negative (Negative); Blood, Urine 2+ (Negative); Clarity Extra Turbid (Clear); Glucose, Urine (Dipstick) Normal (Negative); Ketone, Urine Negative (Negative); Leukocyte 500 Leu/uL (Negative); Nitrite Negative (Negative); Protein, Urine (Dipstick) 300 mg/dL (Neg-Trace); RBC/HPF Greater than 50 HPF (0-3); Squamous Epithelial None Seen HPF (0-3); Urobilinogen Normal mg/dL (Less than 2); WBC/HPF Greater than 50 HPF (0-3); pH, Urine 7.5 (5.0-9.0)
[2020-11-09 20:56] LABS: SARS-CoV-2 NAA Rapid Test Not Detected (NotDetected)
[2020-11-09 21:31] LABS: Troponin I 0.019 ng/mL (< 0.028)
[2020-11-09] MEDS ORDERED: metroNIDAZOLE 500 MG/100 ML BAG ONE (22:13)
[2020-11-10] MEDS: Lactated Ringer's 1,000 ML IV SCH ×2 (00:26→09:04)
[2020-11-10] MEDS: Heparin 5,000 UNITS/ML VIAL SC SCH ×4 (00:26→19:56)
[2020-11-10] MEDS: Piperacillin/Tazobactam 2.25 GM in Sodium Chloride 0.9% 100 ML IVPB SCH ×3 (00:27→19:56)
[2020-11-10] MEDS: Famotidine 20 MG TAB PO SCH ×3 (00:27→19:56)
[2020-11-10 01:42] LABS: #Lymphocytes 2.9 thou/uL (1.20-3.40); #Monocytes 1.5 thou/uL (0.11-0.59); #Neutrophils 14.1 thou/uL (1.40-6.50); %Basophils 0.2 % (0.0-1.0); %Eosinophils 0.2 % (0.0-10.0); %Lymphocytes 15.6 % (21.0-51.0); %Monocytes 8.1 % (0.0-10.0); %Neutrophils 75.9 % (42.0-75.0); Hemoglobin 14.7 g/dL (12.0-16.0); Mean Corpuscular HGB CONC 30.6 g/dL (32.0-36.0); Mean Corpuscular Hemoglobin 31.5 pg (27.0-31.0); Mean Platelet Volume 6.8 fL (7.4-10.4); Platelet Count 249 thou/uL (130-400); RBC Distribution Width 15.7 % (11.5-14.5); Red Blood Cell (RBC) Count 4.65 mill/uL (4.20-5.40); White Blood Cell (WBC) Count 18.6 thou/uL (4.8-10.8)
[2020-11-10 02:07] LABS: Anion Gap 16 mmol/L (10-20); BUN (Urea Nitrogen) 29 mg/dL (9.8-20.1); Calc. Creatinine Clearance 13 mL/min (70-130); Calcium 8.8 mg/dL (7.8-10.44); Carbon Dioxide 14 mmol/L (23-31); Chloride 109 mmol/L (98-107); Glucose 159 mg/dL (80-115); Potassium 3.4 mmol/L (3.5-5.1); Sodium 136 mmol/L (136-145)
[2020-11-10 02:13] LABS: Troponin I 0.035 ng/mL (< 0.028)
--- NOTE | 2020-11-10 07:47 | CON ---
DATE OF CONSULTATION: 11/10/2020 CHIEF COMPLAINT: Abdominal pain, nausea, vomiting, and diarrhea. HISTORY OF PRESENT ILLNESS: The patient is a chronically-ill 59-year-old diabetic female with end-stage renal disease, on hemodialysis. She was recently hospitalized for a lengthy period of time in July of 2020. She returns to the emergency room this evening, complaining of abdominal pain for the past couple of days. She has had some nausea and vomiting and diarrhea. She has also noted some abdominal distention. In the emergency room, she underwent thorough evaluation with laboratory and radiologic studies. The CT scan of her abdomen and pelvis concerningly showed a substantial amount of portal venous gas within the liver and a suggestion of some pneumatosis of the distal small bowel. Her laboratory studies, however, showed very mild leukocytosis with a white blood cell count of 13.7. Her lactate level was normal at 1.9. She had mild metabolic acidosis with a carbon dioxide level of 18, which is not unusual for somebody with renal failure. Per emergency room physician, she clearly did not have an acute abdomen. At the time of this consultation, I became involved with two level 1 traumas in a [id number] fashion, one of whom required a lengthy emergency surgery taking up over 5 hours of my time. I had ordered some followup laboratory studies which looked much more concerning. Her carbon dioxide had dropped down to 14. Her lactate level had risen to 3.0. Her white blood cell count had gone from 13.7 to 18.6. I therefore presented to her room shortly after attending to the trauma fully anticipating, finding the patient who would require a laparotomy. She was being attended by her nurse and nurse assistant health educator and was on her side. I therefore decided to proceed with a rectal examination first while she was in that position. There was no concerning abnormality internally. Mild dilatation of the anus resulted in expression of a large volume of liquid stool and fecal matter along with a large volume of gas all of which came out under pressure. There was no blood within this. Shortly thereafter, I was able to perform abdominal examination and surprisingly, her abdomen was soft and essentially nontender in all 4 quadrants. There were no audible bowel sounds. Her abdominal distention appeared substantially improved from the facilitated bowel movement that she has just had. She had done a nasogastric tube which was put out several 100 mL. PAST MEDICAL HISTORY: Significant for end-stage renal disease, on hemodialysis; diabetes mellitus; and hypertension. PAST SURGICAL HISTORY: 1. Bilateral below-knee amputations, most recently this past year. 2. section. 3. Hysterectomy. 4. Dialysis shunt and dialysis catheter. MEDICATIONS: Include: 1. Lantus insulin. 2. Lisinopril. 3. Metoprolol. 4. Pantoprazole. 5. Gabapentin. 6. Hydralazine. 7. Isosorbide mononitrate. PERSONAL AND SOCIAL HISTORY: She apparently lives in a skilled nursing. She does not drink nor does she smoke. PHYSICAL EXAMINATION: VITAL SIGNS: Her temperature is 98.2, pulse 103, and blood pressure 104/53. GENERAL: She is resting in bed and tells me she feels diffusely uncomfortable. If she has to describe the area of discomfort, she moreover mentions the left lower quadrant. ABDOMEN: Bowel sounds are hypoactive and minimally present. Her abdomen is surprisingly soft, and she allows full deep compression in all 4 quadrants. There is no focal tenderness. There is certainly no peritonitis. There is no definite focal area of increased discomfort. EXTREMITIES: She has bilateral below-knee amputations. LABORATORY DATA: Labs are as above. ASSESSMENT: The patient who has several different issues occurring simultaneously. Most concerningly, she has portal venous gas within the liver that could of course be associated with ischemic or infarcted bowel. She however does not have an examination consistent with this at all. In light of her otherwise tenuous medical status, I have recommended observation for now. She has been started on IV antibiotics and IV fluids and bowel rest and we will see if she improves or not. If her laboratory studies continued to deteriorate, then I would likely recommend proceeding with surgery even if her abdomen remains benign. She also has anal sphincter spasm with inability to release her fecal contents appropriately. This was helped with my examination today, which led to expulsion of fecal contents all of which was liquid under pressure. This may need to be addressed further and this may have something to do with why she is not having bowel movements appropriately. Morning labs have been obtained today, and I will recheck them. If they continue to progress in in the wrong location, I would plan to proceed with a laparoscopy versus laparotomy. Job ID: [id number]
[2020-11-10 10:44] LABS: Lactic Acid 2.1 mmol/L (0.5-2.2)
[2020-11-10 10:50] LABS: Phosphorus 2.8 mg/dL (2.3-4.7)
[2020-11-10 10:53] LABS: ALT (SGPT) 7 U/L (8-55); AST (SGOT) 16 U/L (5-34); Albumin 2.3 g/dL (3.4-4.8); Alkaline Phosphatase 118 U/L (40-110); Anion Gap 17 mmol/L (10-20); BUN (Urea Nitrogen) 39 mg/dL (9.8-20.1); Bilirubin, Total 0.5 mg/dL (0.2-1.2); Calc. Creatinine Clearance 12 mL/min (70-130); Calcium 7.7 mg/dL (7.8-10.44); Carbon Dioxide 15 mmol/L (23-31); Chloride 109 mmol/L (98-107); Globulin 3.6 g/dL (2.4-3.5); Glucose 155 mg/dL (80-115); Protein, Total 5.9 g/dL (5.8-8.1); Sodium 139 mmol/L (136-145)
[2020-11-10 10:56] LABS: Potassium 2.4 mmol/L (3.5-5.1)
[2020-11-10 11:07] LABS: Hemoglobin 12.7 g/dL (12.0-16.0); Mean Corpuscular HGB CONC 30.5 g/dL (32.0-36.0); Mean Corpuscular Hemoglobin 30.8 pg (27.0-31.0); Mean Platelet Volume 7.1 fL (7.4-10.4); Platelet Count 249 thou/uL (130-400); RBC Distribution Width 15.3 % (11.5-14.5); Red Blood Cell (RBC) Count 4.11 mill/uL (4.20-5.40); White Blood Cell (WBC) Count 18.4 thou/uL (4.8-10.8)
[2020-11-10 12:32] LABS: Anisocytosis SLIGHT = 6-15 cells (100X) (0-5/hpf); Band 10 % (5-11); Large Platelets SLIGHT; Lymphocytes 22 % (21-51); MDiff Complete? YES; Macrocytosis SLIGHT = 6-15 cells (100X) (0-5/hpf); Metamyelocyte 1 % (0-0); Monocytes 4 % (0-10); Neutrophil 61 % (42-75); Platelet Morphology Comment PLT clumps seen-ADEQ; Polychromasia SLIGHT = 2-3 cells (100X) (0-2/hpf); Reactive Lymphocytes 2 % (0-10)
[2020-11-10] MEDS: NS 0.9% w/ 40 MEQ KCL 1,000 ML IV SCH ×2 (13:29→23:59)
[2020-11-10] MEDS: Morphine 2 MG/ML VIAL SLOW IVP PRN (13:30)
[2020-11-10] MEDS: Potassium Chloride 20 MEQ in Premix Bag 1 BAG IVPB SCH ×2 (15:32→17:36)
--- NOTE | 2020-11-10 16:22 | PDOC.HOSPP ---
- Subjective Encounter Date: 11/10/20 Encounter Time: 14:10 Subjective: f/u for abd pain/N/V with CT imaging showing pneumatosis intestinalis tx with NGT placement/NPO with Gen surgery consult. Receiving Zosyn/IVF's. Nursing reports low K+ this am. - Objective Vital Signs & Weight: Vital Signs (12 hours) Temp Pulse Resp BP Pulse Ox 11/10/20 12:00 98.1 F 99 18 113/59 L 100 11/10/20 08:00 99 11/10/20 07:57 96.1 F L 101 H 17 91/51 L 99 Weight Weight 118 lb Result Diagrams: 11/10/20 09:59 11/10/20 09:59 Additional Labs: Accuchecks 11/10/20 11/10/20 11:40 05:57 POC Glucose 138 H 147 H Microbiology 11/10/20 Unknown Stool C. difficile GDH Antigen & Toxins - Final 11/09/20 19:50 Stool - Pending Escherichia coli 0157 Culture - Final 11/09/20 19:50 Stool - Pending Campylobacter Antigen Assay - Final 11/09/20 19:50 Stool - Pending Shiga Toxin Test - Final 11/09/20 19:50 Stool - Pending C. difficile GDH Antigen & Toxins - Final 11/18/18 14:27 Venous blood - Right Hand Blood Culture - Preliminary Specimen has been received and culture in progress. No Growth to date. 11/18/18 14:26 Venous blood - Right Arm Blood Culture - Preliminary Specimen has been received and culture in progress. No Growth to date. 11/09/20 19:50 Stool - Pending Stool Culture - Preliminary 11/09/20 17:50 Venous blood - Left Arm Blood Culture - Preliminary Specimen has been received and culture in progress. No Growth to date. 11/09/20 17:50 Venous blood - Left Arm Blood Culture - Preliminary Specimen has been received and culture in progress. No Growth to date. Laboratory Tests 11/18/18 11/18/18 11/18/18 14:26 14:26 14:26 WBC Hgb 11.6 L Sodium 135 L Potassium Carbon Dioxide BUN 38 H Creatinine 5.78 H Lactic Acid 0.9 Phosphorus Magnesium B-Natriuretic Peptide Lipase Influenza A RNA INAAT Influenza B RNA INAAT SARS-CoV-2 Rap RNA(RT-PCR) 11/09/20 11/09/20 11/09/20 17:50 17:50 17:50 WBC 13.7 H Hgb Sodium Potassium Carbon Dioxide BUN Creatinine Lactic Acid 1.9 Phosphorus Magnesium B-Natriuretic Peptide 165.1 H Lipase Influenza A RNA INAAT Influenza B RNA INAAT SARS-CoV-2 Rap RNA(RT-PCR) 11/09/20 11/09/20 11/10/20 17:55 20:01 01:36 WBC Hgb Sodium Potassium 3.5 3.4 L Carbon Dioxide 18 L 14 L BUN Creatinine 3.64 H 3.75 H Lactic Acid Phosphorus Magnesium 1.9 B-Natriuretic Peptide Lipase 17 Influenza A RNA INAAT Not Detected Influenza B RNA INAAT Not Detected SARS-CoV-2 Rap RNA(RT-PCR) Not Detected 11/10/20 11/10/20 11/10/20 01:36 01:36 09:59 WBC 18.6 H Hgb Sodium Potassium Carbon Dioxide BUN Creatinine Lactic Acid 3.0 H 2.1 Phosphorus Magnesium B-Natriuretic Peptide Lipase Influenza A RNA INAAT Influenza B RNA INAAT SARS-CoV-2 Rap RNA(RT-PCR) 11/10/20 10:07 WBC Hgb Sodium Potassium Carbon Dioxide BUN Creatinine Lactic Acid Phosphorus 2.8 Magnesium B-Natriuretic Peptide Lipase Influenza A RNA INAAT Influenza B RNA INAAT SARS-CoV-2 Rap RNA(RT-PCR) Radiology Reviewed by me: Yes (CT abd/pel - pneumatosis distal sm bowel, portal venous gas) EKG Reviewed by me: Yes (Tele - SR, short run of non-sustained SVT) Hospitalist ROS - Medication Medications: Active Medications Generic Name Dose Route Start Last Admin Trade Name Quintenq PRN Reason Stop Dose Admin Famotidine 20 mg 11/09/20 21:00 11/10/20 08:52 Famotidine 20 Mg Tab PO Not Given BID JONATHAN Heparin Sodium (Porcine) 5,000 units 11/09/20 21:00 11/10/20 15:32 Heparin 5,000 Units/Ml Vial SC 5,000 units TID JONATHAN Administration Piperacillin Sod/Tazobactam 100 mls @ 100 mls/hr 11/09/20 20:00 11/10/20 08:51 Sod 2.25 gm/ Sodium Chloride IVPB 100 mls 0800,2000 JONATHAN Administration Potassium Chloride/Sodium Chloride 1,000 mls @ 100 mls/hr 11/10/20 12:45 11/10/20 13:29 Ns 0.9% W/ 40 Meq Kcl IV 1,000 mls .Q10H JONATHAN Administration Potassium Chloride 20 meq/ 100 mls @ 50 mls/hr 11/10/20 14:00 11/10/20 15:32 Device IVPB 11/10/20 17:59 100 mls Q2H JONATHAN Administration Morphine Sulfate 2 mg 11/09/20 19:19 11/10/20 13:30 Morphine 2 Mg/Ml Vial SLOW IVP 2 mg Q4H PRN Administration Pain - Exam General Appearance: ill appearing General - other findings: somnolent Eye: PERRL, anicteric sclera ENT: normocephalic atraumatic, no oropharyngeal lesions ENT - other findings: NGT in place with bilious drainage Neck: supple, symmetric, no JVD, no thyromegaly, no lymphadenopathy Heart: RRR, no gallops, no rubs, normal peripheral pulses Heart - other findings: S1, S2 Respiratory: no ronchi, normal chest expansion, no tachypnea Respiratory - other findings: diminished in bases Gastrointestinal: soft, normal bowel sounds, no guarding, no rigidity Gastrointestinal - other findings: mild TTP in LLQ Extremities: no cyanosis, no clubbing, no edema Skin: normal turgor Neurological: cranial nerve grossly intact, no new deficit Musculoskeletal: normal tone, generalized weakness Psychiatric: A&O x 3, flat affect, somnolent Hosp A/P (1) Pneumatosis intestinalis Code(s): K63.89 - OTHER SPECIFIED DISEASES OF INTESTINE Status: Acute Plan: Suspicious for infectious process vs ischemic or combination, NPO/NGT, continue Zosyn IV, Gen surgery following closely, repeat imaging in 24-48h (2) Abdominal pain Code(s): R10.9 - UNSPECIFIED ABDOMINAL PAIN Status: Acute Qualifiers: Abdominal location: lower abdomen, unspecified Qualified Code(s): R10.30 - Lower abdominal pain, unspecified Plan: Secondary to #1, see above for mgmt (3) Acute metabolic encephalopathy Code(s): G93.41 - METABOLIC ENCEPHALOPATHY Status: Acute Plan: Secondary to #1, supportive mgmt, monitor for clinical improvement (4) Enterocolitis Code(s): K52.9 - NONINFECTIVE GASTROENTERITIS AND COLITIS, UNSPECIFIED Status: Acute Plan: Suspected, continue Zosyn (5) Hypokalemia Code(s): E87.6 - HYPOKALEMIA Status: Acute Plan: KCL supplementation, serial K+ monitoring (6) Nausea & vomiting Code(s): R11.2 - NAUSEA WITH VOMITING, UNSPECIFIED Status: Acute Plan: Secondary to #1, NGT placed, antiemetics, IVF's (7) ESRD (end stage renal disease) on dialysis Code(s): N18.6 - END STAGE RENAL DISEASE; Z99.2 - DEPENDENCE ON RENAL DIALYSIS Status: Chronic Plan: HD per Renal service - Plan continue antibiotics, protective services social worker, DVT proph w/SCDs Continue supportive mgmt Continue Zosyn HD per Renal service Change IVF NS with 40meq KCL @ 100ml/h Serial abd exams Continue NPO/NGT LIWS AM lab: BMP, CBC
--- NOTE | 2020-11-10 20:07 | PRG ---
DATE OF SERVICE: 11/10/2020 SUBJECTIVE: Ms. Saldivar was seen yesterday after she was admitted with pneumatosis of distal small bowel and a significant amount of portal venous gas within the liver. She also had anal sphincter spasm, preventing her from releasing large volumes of liquid stool and gas. In spite of the worrisome radiologic studies and laboratory studies, her abdomen remained benign yesterday, and I therefore opted for continued conservative management with bowel rest and antibiotics. Today, she complains of pain at her nose from her nasogastric tube. She specifically denies any abdominal pain. She does note that she has anorectal discomfort from mild stretching of her anal sphincter. PHYSICAL EXAMINATION: VITAL SIGNS: She is afebrile, her pulse is 99, blood pressure is 127/54, and oxygen saturation is good on room air. LUNGS: Clear to auscultation. ABDOMEN: Soft and nondistended. There are hypoactive, but present bowel sounds. She has a distinctly soft abdomen with no guarding or focal tenderness present in any quadrant. RECTAL: Examination again reveals a high volume of liquid and gaseous material with mild anal dilatation. LABORATORY DATA: White blood cell count is stable at 18.4, hemoglobin is 12.7. Chemistry panel shows that her potassium is low at 2.4. Her CO2 level is up a little bit from 14 earlier this morning to 15. Her lactate that was elevated at 1 o'clock this morning, came down to 2.1. ASSESSMENT: Although she had a worrisome CT scan and laboratory studies upon presentation, her benign abdominal examination is led me to recommend conservative management. She continues on intravenous Zosyn and IV fluids and nasogastric decompression. I will continue to follow her closely. I would have a low threshold for proceeding to the operating room. Continue with serial abdominal exams and laboratory studies. Job ID: [id number]
[2020-11-10] MEDS: Famotidine/PF 20 mg/2ml Vial SLOW IVP SCH (20:40)
[2020-11-10] MEDS ORDERED: FLU VACC QS2020-21(6MOS UP)/PF 60 MCG/0.5 ML SYRINGE IM ONE (21:00)
[2020-11-11] MEDS: NS 0.9% w/ 40 MEQ KCL 1,000 ML IV SCH ×2 (04:42→20:46)
[2020-11-11] MEDS: Morphine 2 MG/ML VIAL SLOW IVP PRN ×3 (04:42→20:48)
[2020-11-11 04:55] LABS: Anion Gap 16 mmol/L (10-20); BUN (Urea Nitrogen) 43 mg/dL (9.8-20.1); Calc. Creatinine Clearance 11 mL/min (70-130); Calcium 7.7 mg/dL (7.8-10.44); Carbon Dioxide 13 mmol/L (23-31); Chloride 114 mmol/L (98-107); Glucose 81 mg/dL (80-115); Potassium 3.7 mmol/L (3.5-5.1); Sodium 139 mmol/L (136-145)
[2020-11-11 05:00] LABS: Band 19 % (5-11); Hemoglobin 12.8 g/dL (12.0-16.0); Lymphocytes 19 % (21-51); MDiff Complete? YES; Mean Corpuscular HGB CONC 30.8 g/dL (32.0-36.0); Mean Platelet Volume 7.2 fL (7.4-10.4); Monocytes 6 % (0-10); Neutrophil 56 % (42-75); Platelet Count 240 thou/uL (130-400); Platelet Morphology Comment Appears Adequate; RBC Distribution Width 15.3 % (11.5-14.5); Red Blood Cell (RBC) Count 4.12 mill/uL (4.20-5.40); White Blood Cell (WBC) Count 20.3 thou/uL (4.8-10.8)
[2020-11-11] MEDS: Dextrose 50% Abboject 50 ML SYRINGE SLOW IVP PRN (06:01)
--- NOTE | 2020-11-11 06:18 | CON ---
DATE OF CONSULTATION: 11/10/2020 HISTORY OF PRESENT ILLNESS: Ms. Saldivar is a 59-year-old female with ESRD - on maintenance hemodialysis and was admitted due to complaints of abdominal pain. This has been characterized by intermittent nausea and vomiting, watery diarrhea. The patient has not been doing well for the last several months. During the last hospitalization on August 09, 2020, the patient was diagnosed to have mesenteric ischemia/mesenteric stenosis. At that time, conservative management was preferred by the patient. A surgical consult has been done with Dr. Carrillo. He is currently evaluating the patient. The possibility of exploratory laparotomy remains if the patient's clinical condition worsens. She currently has no acute abdomen appreciated at the present time. We are also being consulted for management of her ESRD, on maintenance hemodialysis. Her schedule is a Wednesday, Wednesday, and Wednesday dialysis. In the past, she has been noted to be hypophosphatemic and for that reason, has been given sodium phosphorus tablets, which the patient, unfortunately, is not taking. REVIEW OF SYSTEMS: Positive for generalized malaise. Positive for decreased appetite, decreased energy level. Positive for abdominal pain and intermittent diarrhea. No fever or chills. No chest pain. No shortness of breath. Appetite is decreased. No headache. No dysuria. No hematochezia. No melena. No hematemesis. MEDICATIONS: Currently on; 1. Tylenol 650 mg q.4 p.r.n. 2. Pepcid 20 mg p.o. b.i.d. 3. Humalog sliding scale. 4. Lactated Ringer's at 100 mL/h. 5. Morphine sulfate p.r.n. 6. Zosyn 2.25 g IV q.8. PAST MEDICAL HISTORY: 1. History of mesenteric ischemia/mesenteric vessel stenosis. 2. The patient has ESRD, currently on maintenance hemodialysis. 3. Type 2 diabetes mellitus. 4. Status post CHF. 5. Hypertension. 6. Coronary artery disease. 7. Peripheral vascular disease. 8. Diabetic neuropathy. 9. Hyperlipidemia. 10. Hypothyroidism. PAST SURGICAL HISTORY: Status post right AKA, status post left AKA, status post AV fistula placement, status post cuffed hemodialysis catheter placement, status post hysterectomy, status post aortogram with right lower extremity runoff with SPECIAL EDUCATION SUPERINTENDENT and stent placement of the right anterior tibial artery, and status post colonoscopy. SOCIAL HISTORY: The patient lives at home. , lives in [place]. Four children. Sedentary lifestyle. Status post multiple blood transfusion. No smoking. No alcohol intake. No IV drug abuse. ALLERGIES: NONE. TRAUMA: None. IMMUNIZATIONS: Up-to-date. HOSPITALIZATIONS: Please see past medical history. FAMILY HISTORY: No family history of ESRD. PHYSICAL EXAMINATION: VITAL SIGNS: Blood pressure is noted at 91/51, heart rate 101, respiratory rate 17, temperature 96.1, and O2 saturation 99% room air. GENERAL: Awake, lethargic, in mild distress - having pain. SKIN: Adequate decreased turgor. HEENT: She has pinkish conjunctivae. Anicteric sclerae. NECK: No neck mass. No carotid bruits. No JVD. CHEST: No deformities. LUNGS: Clear breath sounds. HEART: Normal sinus rhythm. No murmur. No gallops. No rubs. ABDOMEN: Globular, soft, and nontender. No masses. EXTREMITIES: Bilateral leg amputation. NEUROLOGICAL: Awake, oriented to 3 spheres. Able to move all extremities. LABORATORY DATA: Laboratories of November 10, 2020; sodium 136, potassium 3.4, chloride 109, carbon dioxide 14, BUN 29, creatinine 3.75, glucose 159, and calcium 8.8. Lactic acid is 3. CK-MB is 1. On November 09, 2020, CT scan of the abdomen and pelvis, finding of pneumatosis distal small bowel with large amount of portal venous gas. ASSESSMENT AND PLAN: 1. Abdominal pain, mesenteric ischemia - continue supportive care. Surgery is evaluating the patient. 2. End-stage renal disease, stable. No indication for any emergent hemodialysis. We will be continuing Wednesday, Wednesday, and Wednesday hemodialysis. 3. Hypophosphatemia. We will be repeating serum phosphorus and we will try to correct this as needed. 4. Overall, prognosis with this patient remains guarded. Recheck CBC and basic metabolic panel in a.m. Job ID: [id number]
[2020-11-11] MEDS: Piperacillin/Tazobactam 2.25 GM in Sodium Chloride 0.9% 100 ML IVPB SCH ×2 (09:14→20:47)
--- NOTE | 2020-11-11 09:39 | PRG ---
DATE OF SERVICE: 11/11/2020 SUBJECTIVE: Ms. Saldivar is a 59-year-old female with ESRD - maintenance hemodialysis and admitted for abdominal pain. CT scan of the abdomen showed pneumatosis of distal small bowel with large amount of portal venous gas, possibility of ischemic or necrotic intestine. Please note, the patient has a previous workup, which showed mesenteric ischemia with mesenteric vessel stenosis. At that time, conservative management was preferred by the patient. This morning, she denies any abdominal pain. No chest pain or shortness of breath, but she does complain of a right hand pain. No acute events noted last night. OBJECTIVE: VITAL SIGNS: Blood pressure is noted at 107/53, heart rate 101, respiratory rate 24, temperature 99.1, and O2 saturation 99%. GENERAL: The patient is awake, in mild pain, not in respiratory distress. SKIN: Adequate turgor. HEENT: She has a pinkish conjunctivae. Anicteric sclerae. NECK: No neck mass. No carotid bruits. No JVD. CHEST: No deformities. LUNGS: Clear breath sounds. No wheezing. No crackles. HEART: Normal sinus rhythm. No murmurs. No gallops. No rubs. ABDOMEN: Globular, soft, and nontender. No masses. EXTREMITIES: No edema. Right hand is cold. No cyanosis. MEDICATIONS: Medications of November 11, 2020, was reviewed. LABORATORY DATA: Laboratories of November 11, 2020, white count 20.3 and hemoglobin 12.8. Sodium 139, potassium 3.7, chloride 104, carbon dioxide 13, BUN 43, creatinine 4.68, and calcium 7.7. November 10, 2020, phosphorus was 2.8. ASSESSMENT AND PLAN: 1. Hypophosphatemia - much improved. We had previous outpatient supplementation of sodium phosphate tablets. 2. End-stage renal disease, we will continue current Wednesday, Wednesday, and Wednesday hemodialysis. Fluid removal only as tolerated. We will probably minimize fluid removal today due to her decreased BP and dehydration. 3. Abdominal pain - consider ischemic bowel. Conservative management. There is no indication for any acute exploratory laparotomy at the present time. Surgery is following. 4. Right hand pain, supportive care. Overall prognosis remains guarded with this patient. Recheck CBC and basic metabolic in a.m. Job ID: [id number]
[2020-11-11] MEDS ORDERED: Ondansetron PF 4 MG/2 ML Vial ONE (11:17)
[2020-11-11] MEDS ORDERED: ePHEDrine 50 MG/ML VIAL ONE (11:17)
[2020-11-11] MEDS ORDERED: Dexamethasone 20 MG/5 ML VIAL ONE (11:17)
[2020-11-11] MEDS ORDERED: Lidocaine 1% PF 5 ML VIAL ONE (11:17)
[2020-11-11] MEDS ORDERED: Rocuronium Bromide 10 MG/ML (10ML VIAL) ONE (11:17)
[2020-11-11] MEDS ORDERED: PHENYLEPHRINE-NS 100 MCG/ML 10 ML SYRINGE ONE (11:17)
[2020-11-11] MEDS ORDERED: PROPOFOL 200 MG/20 ML VIAL ONE (11:17)
[2020-11-11] MEDS ORDERED: Fentanyl 100 MCG/2 ML VIAL ONE ×2 (12:27→13:13)
[2020-11-11] MEDS ORDERED: EPINEPHrine 1 MG/ML AMP ONE (12:39)
[2020-11-11] MEDS ORDERED: Bupivacaine 0.25% HCL 30 ML VIAL ONE (12:39)
[2020-11-11] MEDS ORDERED: Ketamine 50 MG/ML (10ML VIAL) ONE (13:14)
[2020-11-11] MEDS ORDERED: SUGAMMADEX SODIUM 200 MG/2 ML VIAL ONE (14:17)
[2020-11-11] MEDS ORDERED: Promethazine HCl 25 MG/ML VIAL IM PRN (14:49)
[2020-11-11] MEDS ORDERED: Promethazine HCl 25 MG/ML VIAL SLOW IVP PRN (14:49)
[2020-11-11] MEDS ORDERED: Ondansetron HCl/PF 4 MG/2 ML Vial IVP PRN (14:49)
--- NOTE | 2020-11-11 18:52 | PDOC.HOSPP ---
- Subjective Encounter Date: 11/11/20 Encounter Time: 18:45 Subjective: f/u for abd pain with suspected ischemic bowel undergoing exploratory laparoscopy with RAVEN today. Receiving IV Zosyn/IVF's. Feels better overall. - Objective Vital Signs & Weight: Vital Signs (12 hours) Temp Pulse Resp BP Pulse Ox 11/11/20 15:57 97.1 F L 100 20 120/51 L 97 11/11/20 08:50 97.5 F L 95 19 107/51 L 100 Weight Admit Weight 118 lb Weight 118 lb I&O: 11/10/20 11/11/20 11/12/20 06:59 06:59 06:59 Intake Total 2100 1210 Output Total 100 200 Balance 2000 1010 Result Diagrams: 11/11/20 04:12 11/11/20 04:12 Additional Labs: Accuchecks 11/11/20 11/11/20 11/11/20 15:21 10:52 06:28 POC Glucose 79 72 134 H 11/11/20 11/10/20 11/10/20 05:48 23:57 18:47 POC Glucose 65 L 90 110 H Microbiology 11/10/20 Unknown Stool C. difficile GDH Antigen & Toxins - Final 11/09/20 19:50 Stool - Pending Escherichia coli 0157 Culture - Final 11/09/20 19:50 Stool - Pending Campylobacter Antigen Assay - Final 11/09/20 19:50 Stool - Pending Shiga Toxin Test - Final 11/09/20 19:50 Stool - Pending C. difficile GDH Antigen & Toxins - Final 11/18/18 14:27 Venous blood - Right Hand Blood Culture - Preliminary Specimen has been received and culture in progress. No Growth to date. 11/18/18 14:26 Venous blood - Right Arm Blood Culture - Preliminary Specimen has been received and culture in progress. No Growth to date. 11/09/20 19:50 Stool - Pending Stool Culture - Preliminary 11/09/20 17:50 Venous blood - Left Arm Blood Culture - Preliminary Specimen has been received and culture in progress. No Growth to date. 11/09/20 17:50 Venous blood - Left Arm Blood Culture - Preliminary Specimen has been received and culture in progress. No Growth to date. Laboratory Tests 11/18/18 11/18/18 11/18/18 14:26 14:26 14:26 WBC Hgb 11.6 L Sodium 135 L Potassium Carbon Dioxide BUN 38 H Creatinine 5.78 H Lactic Acid 0.9 Phosphorus Magnesium B-Natriuretic Peptide Lipase Influenza A RNA INAAT Influenza B RNA INAAT SARS-CoV-2 Rap RNA(RT-PCR) 11/09/20 11/09/20 11/09/20 17:50 17:50 17:50 WBC 13.7 H Hgb Sodium Potassium Carbon Dioxide BUN Creatinine Lactic Acid 1.9 Phosphorus Magnesium B-Natriuretic Peptide 165.1 H Lipase Influenza A RNA INAAT Influenza B RNA INAAT SARS-CoV-2 Rap RNA(RT-PCR) 11/09/20 11/09/20 11/10/20 17:55 20:01 01:36 WBC Hgb Sodium Potassium 3.5 3.4 L Carbon Dioxide 18 L 14 L BUN Creatinine 3.64 H 3.75 H Lactic Acid Phosphorus Magnesium 1.9 B-Natriuretic Peptide Lipase 17 Influenza A RNA INAAT Not Detected Influenza B RNA INAAT Not Detected SARS-CoV-2 Rap RNA(RT-PCR) Not Detected 11/10/20 11/10/20 11/10/20 01:36 01:36 09:59 WBC 18.6 H Hgb Sodium Potassium Carbon Dioxide BUN Creatinine Lactic Acid 3.0 H 2.1 Phosphorus Magnesium B-Natriuretic Peptide Lipase Influenza A RNA INAAT Influenza B RNA INAAT SARS-CoV-2 Rap RNA(RT-PCR) 11/10/20 10:07 WBC Hgb Sodium Potassium Carbon Dioxide BUN Creatinine Lactic Acid Phosphorus 2.8 Magnesium B-Natriuretic Peptide Lipase Influenza A RNA INAAT Influenza B RNA INAAT SARS-CoV-2 Rap RNA(RT-PCR) EKG Reviewed by me: Yes (Tele - SR) Hospitalist ROS - Medication Medications: Active Medications Generic Name Dose Route Start Last Admin Trade Name Freq PRN Reason Stop Dose Admin Dextrose/Water 25 gm 11/09/20 19:35 11/11/20 06:01 Dextrose 50% Abboject 50 Ml Syringe SLOW IVP 25 gm PRN PRN Administration Hypoglycemia Famotidine 20 mg 11/10/20 21:00 11/10/20 20:40 Famotidine/Pf 20 Mg/2ml Vial SLOW IVP 20 mg 2100 JONATHAN Administration Piperacillin Sod/Tazobactam 100 mls @ 100 mls/hr 11/09/20 20:00 11/11/20 09:14 Sod 2.25 gm/ Sodium Chloride IVPB 100 mls 0800,2000 JONATHAN Administration Potassium Chloride/Sodium Chloride 1,000 mls @ 100 mls/hr 11/10/20 12:45 11/11/20 04:42 Ns 0.9% W/ 40 Meq Kcl IV 1,000 mls .Q10H JONATHAN Administration Morphine Sulfate 2 mg 11/09/20 19:19 11/11/20 09:12 Morphine 2 Mg/Ml Vial SLOW IVP 2 mg Q4H PRN Administration Pain Sodium Chloride 10 ml 11/10/20 21:00 11/11/20 09:14 Flush - Normal Saline 10 Ml Syringe IVF 10 ml Q12HR JONATHAN Administration - Exam General Appearance: NAD, awake alert Eye: anicteric sclera ENT: normocephalic atraumatic, no oropharyngeal lesions Neck: supple, symmetric, no JVD, no thyromegaly, no lymphadenopathy Heart: RRR, no gallops, no rubs, normal peripheral pulses Heart - other findings: S1, S2 Respiratory: CTAB, no wheezes, no rales, no ronchi, normal chest expansion Gastrointestinal: soft, non-distended, normal bowel sounds, no guarding, no rigidity Gastrointestinal - other findings: mild TTP Extremities: no cyanosis, no clubbing, no edema Skin: normal turgor Neurological: cranial nerve grossly intact, no new deficit Musculoskeletal: normal tone, generalized weakness Psychiatric: oriented to person, oriented to place Hosp A/P (1) Pneumatosis intestinalis Code(s): K63.89 - OTHER SPECIFIED DISEASES OF INTESTINE Status: Acute Plan: s/p exp lap with RAVEN today, supportive mgmt, continue IV Zosyn/IVF's (2) Abdominal pain Code(s): R10.9 - UNSPECIFIED ABDOMINAL PAIN Status: Acute Qualifiers: Abdominal location: lower abdomen, unspecified Qualified Code(s): R10.30 - Lower abdominal pain, unspecified Plan: Improved s/p exp lap with RAVEN, supportive mgmt (3) Acute metabolic encephalopathy Code(s): G93.41 - METABOLIC ENCEPHALOPATHY Status: Acute Plan: Slow improvement, likely due to #1 and multifactorial, supportive mgmt (4) Enterocolitis Code(s): K52.9 - NONINFECTIVE GASTROENTERITIS AND COLITIS, UNSPECIFIED Status: Acute (5) Hypokalemia Code(s): E87.6 - HYPOKALEMIA Status: Acute Plan: Improved, continue serial K+ monitoring (6) Nausea & vomiting Code(s): R11.2 - NAUSEA WITH VOMITING, UNSPECIFIED Status: Acute Plan: Resolving (7) ESRD (end stage renal disease) on dialysis Code(s): N18.6 - END STAGE RENAL DISEASE; Z99.2 - DEPENDENCE ON RENAL DIALYSIS Status: Chronic Plan: HD per Renal service - Plan continue antibiotics, rn social services, incentive spirometry, DVT proph w/SCDs Continue supportive mgmt Continue Zosyn HD per Renal service Change IVF NS with 40meq KCL @ 100ml/h Serial abd exams Continue clear liquids AM lab: BMP, CBC
[2020-11-11] MEDS: Acetaminophen 325 MG TAB PO PRN (19:21)
[2020-11-11] MEDS: Famotidine/PF 20 mg/2ml Vial SLOW IVP SCH (20:48)
[2020-11-12] MEDS: NS 0.9% w/ 40 MEQ KCL 1,000 ML IV SCH (03:54)
[2020-11-12 05:16] LABS: #Basophils 0.1 thou/uL (0.0-0.2); #Eosinphils 0.1 thou/uL (0.0-0.7); #Lymphocytes 3.1 thou/uL (1.20-3.40); #Monocytes 0.8 thou/uL (0.11-0.59); %Basophils 0.4 % (0.0-1.0); %Eosinophils 0.3 % (0.0-10.0); %Lymphocytes 19.3 % (21.0-51.0); %Monocytes 4.9 % (0.0-10.0); %Neutrophils 75.1 % (42.0-75.0); Hemoglobin 10.9 g/dL (12.0-16.0); Hypochromia SLIGHT = 6-15 cells (100X) (0-5/hpf); MDiff Complete? YES; Mean Corpuscular HGB CONC 31.5 g/dL (32.0-36.0); Mean Corpuscular Hemoglobin 32.2 pg (27.0-31.0); Mean Platelet Volume 7.9 fL (7.4-10.4); Platelet Count 80 thou/uL (130-400); Platelet Morphology Comment Appears Decreased; RBC Distribution Width 15.3 % (11.5-14.5); Red Blood Cell (RBC) Count 3.38 mill/uL (4.20-5.40); White Blood Cell (WBC) Count 16.1 thou/uL (4.8-10.8)
[2020-11-12 05:19] LABS: Anion Gap 17 mmol/L (10-20); BUN (Urea Nitrogen) 47 mg/dL (9.8-20.1); Calc. Creatinine Clearance 9 mL/min (70-130); Calcium 7.2 mg/dL (7.8-10.44); Chloride 120 mmol/L (98-107); Glucose 93 mg/dL (80-115); Potassium 4.5 mmol/L (3.5-5.1); Sodium 140 mmol/L (136-145)
[2020-11-12 05:24] LABS: Carbon Dioxide 8 mmol/L (23-31)
[2020-11-12] MEDS: Dextrose 50% Abboject 50 ML SYRINGE SLOW IVP PRN (06:20)
--- NOTE | 2020-11-12 09:34 | PRG ---
DATE OF SERVICE: 11/12/2020 SUBJECTIVE: Ms. Saldivar is a 59-year-old female with ESRD and on maintenance hemodialysis. She is currently undergoing hemodialysis. Fluid removal only as tolerated. No heparin is being used. The patient underwent an exploratory laparoscopy yesterday for a possible ischemic bowel. We are awaiting for the official operative findings by Dr. Carrillo. The patient tells me abdominal pain is actually better. She denies any chest pain or shortness of breath. OBJECTIVE: VITAL SIGNS: Blood pressure is 113/59, heart rate 98, respiratory rate 16, temperature 98.4, O2 saturation 98%. GENERAL: Patient is awake, comfortable, not in overt distress. SKIN: Adequate turgor. HEENT: She has a slightly pale conjunctivae. Anicteric sclerae. No neck mass. No carotid bruits. No JVD. CHEST: No deformities. LUNGS: Clear breath sounds. No wheezing. No crackles. HEART: Normal sinus rhythm. No murmurs. No gallops. No rubs. ABDOMEN: Globular, soft, nontender. No masses. Positive for abdominal surgical dressing. EXTREMITIES: No edema. No deformities. MEDICATIONS: Medications of November 12, 2020 were reviewed. LABORATORY DATA: Laboratories of November 12, 2020; white count 16.1, hemoglobin 10.9, sodium 140, potassium 4.5, chloride 120, carbon dioxide 8, BUN 47, creatinine 5.38, calcium 7.2. ASSESSMENT AND PLAN: 1. Anemia -- start Epogen 7500 units subcu every week. 2. Abdominal/ischemic bowel -- status post laparoscopy. Surgery is following. Awaiting for the official operative finding. 3. End-stage renal disease, stable. We will continue heparin free hemodialysis with this patient. We will try to correct metabolic acidosis with hemodialysis. Please note, this patient is also on empiric IV antibiotics. 4. Overall prognosis remains guarded. Recheck CBC, basic metabolic in a.m. Job ID: [id number]
[2020-11-12 09:39] LABS: HBSAg Index 0.19 S/CO (0-0.99); Hep B Surf Ag Non-Reactive S/CO (NonReactive)
--- NOTE | 2020-11-12 09:47 | OP ---
DATE OF PROCEDURE: 11/11/2020 PREOPERATIVE DIAGNOSES: Pneumatosis of small bowel, portal venous gas within the liver, progressive leukocytosis and acidosis. POSTOPERATIVE DIAGNOSES: Pneumatosis of small bowel, portal venous gas within the liver, progressive leukocytosis and acidosis. Findings of patchy areas of potential ischemic change to the bowel without findings of any distinctly ischemic or gangrenous segments, anterior abdominal wall adhesions preventing access to the operative site. OPERATION PERFORMED: Diagnostic laparoscopy, lysis of intraabdominal adhesions, evaluation of entirety of her small bowel and right colon without any bowel resection. ANESTHESIA: General endotracheal. INDICATIONS: The patient is a chronically ill 59-year-old female. She has had bilateral below-knee amputations and is on chronic hemodialysis. She presented to the hospital few days previously with abdominal complaints and a CT scan was obtained revealing extensive portal venous gas and what appeared to be pneumatosis of the distal small bowel. In spite of these findings, she had a very benign abdominal exam and I observed her with conservative management for a couple of days. Earlier today (on November 11) her laboratory studies were noted to have been trending unfavorably with progression of acidosis. Her CO2 had dropped from 15 the day before to 13 and her white blood cell count had risen from 18 up to 20. I therefore felt laparoscopy was appropriate to evaluate the small bowel, even though she continued to have a benign abdominal exam. DESCRIPTION OF OPERATION: Informed consent was obtained. Patient was taken to the operating room where general endotracheal anesthesia obtained. Placed in supine position. Abdomen was prepped with ChloraPrep and draped in sterile fashion. Local anesthetic was infiltrated using 0.25% Marcaine with epinephrine. A 5 mm left lateral mid abdominal incision was created through which a Veress needle was passed in the peritoneal cavity. Pneumoperitoneum established. Carbon dioxide up to pressure of 15 mmHg. A 5 mm trocar port was passed through the same incision. Laparoscopic camera was passed through this port. Under direct vision, a 5 mm port was placed in the left upper abdomen. I then began lysing omental adhesions to the anterior abdominal wall. These were likely from her hysterectomy in her lower midline abdominal incision. There was no bowel involved in the lysis of adhesions. The adhesions were carefully mobilized heading down to the pelvis. All of the adhesions were not lysed enough that I could safely access the right side of the abdomen. Finally, I placed a third 5 mm port in the left lower abdomen. Attention was then turned to the right side of the abdomen. I was able to identify the cecum and the appendix. I then identified the ileocecal valve and traced the small bowel retrograde up to the level of the ligament of Treitz. In so doing, I found several areas of what appeared to be patchy segments of possible early devitalized bowel with some degree of ischemia. In these segments, the bowel appeared to be a little darker than typical and probably a little more thin walled. There was no area that was frankly gangrenous and there was certainly no perforation. The 1st of these segments began about 30-40 cm from the ileocecal valve. This was probably about 8-10 cm long and then the bowel returned to normal for a segment of another 10-20 cm at which point another patchy area of abnormality was visualized. As I traced through the small bowel, there were 4-5 of these areas. All of these appeared to be abnormal, but none of them appeared to be frankly gangrenous or definitively requiring resection. There was nothing that did not appear to potentially be salvageable. I therefore decided against bowel resection at this time. I irrigated the abdominal cavity. Aspirated all irrigant. Pneumoperitoneum was carefully evacuated. All ports and instruments were removed under direct vision. Skin edges approximated with 4-0 Monocryl subcuticular suture. Dermabond was placed externally. There were no complications. Blood loss was negligible. The patient tolerated the procedure well and was taken to recovery room in stable condition. Job ID: [id number]
[2020-11-12] MEDS: Morphine 2 MG/ML VIAL SLOW IVP PRN ×2 (11:54→19:05)
[2020-11-12] MEDS: Piperacillin/Tazobactam 2.25 GM in Sodium Chloride 0.9% 100 ML IVPB SCH ×2 (12:50→20:34)
[2020-11-12] MEDS ORDERED: D5 LR w/20 mEq KCL 1,000 ML IV SCH (13:30)
--- NOTE | 2020-11-12 14:11 | PRG ---
DATE OF SERVICE: 11/12/2020 SUBJECTIVE: Ms. Saldivar is postoperative day #1 following diagnostic laparoscopy and lysis of adhesions yesterday. I decided to remove her nasogastric tube. There was no real bowel distention at the time of her surgery. She unfortunately is able to provide limited input in regard to her care. As usual, she is lying in bed with eyes closed and does not open them when I speak to her. Her answers are usually one-word answers. She tells me she is feeling okay and denies any significant pain. I think she is happy that her nasogastric tube was removed. OBJECTIVE: VITAL SIGNS: She is afebrile. Pulse is 97, blood pressure 117/56. LUNGS: Clear to auscultation. ABDOMEN: Protuberant, as usual, but nondistended. Her three laparoscopic incision sites are healing nicely. There are no significant bowel sounds that I can appreciate. She has mild diffuse discomfort without acute pain. LABORATORY DATA: Her white blood cell count has trended downward from 20 to 16, hemoglobin is 10.9 down from 12.8, platelet count inexplicably has dropped from 240 down to 80. Chemistry profile reveals that her chloride is high at 120, her CO2 is very low at 8. Her creatinine has trended up to 5.4. Glucoses has been both elevated and decreased, but she has at least three episodes of low sugars today and is low again currently. ASSESSMENT: The patient with a difficult problem. She appeared to have diffuse ischemic change to parts of her small intestine at the time of examination yesterday. I did feel it was appropriate to remove five separate segments of the small intestine and therefore, I removed none. I am hoping that with antibiotics and time that this can get better. She has been here for several days now and still is not eating. We may need to consider TPN on her. In regard to her acidosis, this may be because she has not dialyzed in a few days. Perhaps this will improve with her dialysis. I will write for clear liquids and see if she takes any or tolerates them and then we will check on her tomorrow. I will get abdominal x-rays tomorrow as well. If this situation appears to persist, then we will get either a PICC line or central line for TPN administration. Job ID: [id number]
--- NOTE | 2020-11-12 16:31 | PDOC.HOSPP ---
- Subjective Encounter Date: 11/12/20 Encounter Time: 16:30 Subjective: f/u for abd pain s/p exp laparoscopic procedure with RAVEN POD #1. Pt denies any abd pain currently and no N/V. Started on D5 IVF's due to hypoglycemia and acidosis. - Objective Vital Signs & Weight: Vital Signs (12 hours) Temp Pulse Resp BP Pulse Ox 11/12/20 16:00 98.0 F 100 18 102/55 L 100 11/12/20 11:50 98.3 F 102 H 16 131/57 L 100 11/12/20 07:55 98.0 F 97 18 117/56 L 98 Weight Admit Weight 118 lb Weight 118 lb I&O: 11/11/20 11/12/20 11/13/20 06:59 06:59 06:59 Intake Total 2100 1210 Output Total 100 200 Balance 2000 1010 Result Diagrams: 11/12/20 04:35 11/12/20 04:35 Additional Labs: Accuchecks 11/12/20 11/12/20 11/12/20 14:50 12:00 06:34 POC Glucose 74 64 L 201 H 11/12/20 11/12/20 11/11/20 06:17 05:55 23:24 POC Glucose 59 L* 64 L 165 H 11/11/20 17:15 POC Glucose 110 H Microbiology 11/10/20 Unknown Stool C. difficile GDH Antigen & Toxins - Final 11/09/20 19:50 Stool - Pending Escherichia coli 0157 Culture - Final 11/09/20 19:50 Stool - Pending Campylobacter Antigen Assay - Final 11/09/20 19:50 Stool - Pending Shiga Toxin Test - Final 11/09/20 19:50 Stool - Pending C. difficile GDH Antigen & Toxins - Final 11/18/18 14:27 Venous blood - Right Hand Blood Culture - Preliminary Specimen has been received and culture in progress. No Growth to date. 11/18/18 14:26 Venous blood - Right Arm Blood Culture - Preliminary Specimen has been received and culture in progress. No Growth to date. 11/09/20 19:50 Stool - Pending Stool Culture - Preliminary 11/09/20 17:50 Venous blood - Left Arm Blood Culture - Preliminary Specimen has been received and culture in progress . No Growth to date. 11/09/20 17:50 Venous blood - Left Arm Blood Culture - Preliminary Specimen has been received and culture in [facility]. No Growth to date. Laboratory Tests 11/18/18 11/18/18 11/18/18 14:26 14:26 14:26 WBC Hgb 11.6 L Sodium 135 L Potassium Carbon Dioxide BUN 38 H Creatinine 5.78 H Lactic Acid 0.9 Phosphorus Magnesium B-Natriuretic Peptide Lipase Hep Bs Antigen Influenza A RNA INAAT Influenza B RNA INAAT SARS-CoV-2 Rap RNA(RT-PCR) 11/09/20 11/09/20 11/09/20 17:50 17:50 17:50 WBC 13.7 H Hgb Sodium Potassium Carbon Dioxide BUN Creatinine Lactic Acid 1.9 Phosphorus Magnesium B-Natriuretic Peptide 165.1 H Lipase Hep Bs Antigen Influenza A RNA INAAT Influenza B RNA INAAT SARS-CoV-2 Rap RNA(RT-PCR) 11/09/20 11/09/20 11/10/20 17:55 20:01 01:36 WBC Hgb Sodium Potassium 3.5 3.4 L Carbon Dioxide 18 L 14 L BUN Creatinine 3.64 H 3.75 H Lactic Acid Phosphorus Magnesium 1.9 B-Natriuretic Peptide Lipase 17 Hep Bs Antigen Influenza A RNA INAAT Not Detected Influenza B RNA INAAT Not Detected SARS-CoV-2 Rap RNA(RT-PCR) Not Detected 11/10/20 11/10/20 11/10/20 01:36 01:36 09:59 WBC 18.6 H Hgb Sodium Potassium Carbon Dioxide BUN Creatinine Lactic Acid 3.0 H 2.1 Phosphorus Magnesium B-Natriuretic Peptide Lipase Hep Bs Antigen Influenza A RNA INAAT Influenza B RNA INAAT SARS-CoV-2 Rap RNA(RT-PCR) 11/10/20 11/11/20 11/11/20 10:07 04:12 04:12 WBC 20.3 H Hgb Sodium Potassium Carbon Dioxide 13 L BUN Creatinine Lactic Acid Phosphorus 2.8 Magnesium B-Natriuretic Peptide Lipase Hep Bs Antigen Influenza A RNA INAAT Influenza B RNA INAAT SARS-CoV-2 Rap RNA(RT-PCR) 11/12/20 08:20 WBC Hgb Sodium Potassium Carbon Dioxide BUN Creatinine Lactic Acid Phosphorus Magnesium B-Natriuretic Peptide Lipase Hep Bs Antigen Non-Reactive Influenza A RNA INAAT Influenza B RNA INAAT SARS-CoV-2 Rap RNA(RT-PCR) EKG Reviewed by me: Yes (Tele - SR) Hospitalist GIN Kennedy Medication Medications: Active Medications Generic Name Dose Route Start Last Admin Trade Name Freq PRN Reason Stop Dose Admin Acetaminophen 650 mg 11/09/20 19:19 11/11/20 19:21 Acetaminophen 325 Mg Tab PO 650 mg Q4H PRN Administration Headache/Fever/Mild Pain (1-3) Dextrose/Water 25 gm 11/09/20 19:35 11/12/20 06:20 Dextrose 50% Abboject 50 Ml Syringe SLOW IVP 25 gm PRN PRN Administration Hypoglycemia Famotidine 20 mg 11/10/20 21:00 11/11/20 20:48 Famotidine/Pf 20 Mg/2ml Vial SLOW IVP 20 mg 2100 JONATHAN Administration Dextrose/Water 1,000 mls @ 0 mls/hr 11/09/20 19:35 11/12/20 13:20 D5w IV 1,000 mls .Q0M PRN Administration Hypoglycemia As Directed Piperacillin Sod/Tazobactam 100 mls @ 100 mls/hr 11/09/20 20:00 11/12/20 12:50 Sod 2.25 gm/ Sodium Chloride IVPB 100 mls 0800,2000 [facility] Administration Morphine Sulfate 2 mg 11/09/20 19:19 11/12/20 11:54 Morphine 2 Mg/Ml Vial SLOW IVP 2 mg Q4H PRN Administration Pain Sodium Chloride 10 ml 11/10/20 21:00 11/12/20 12:03 Flush - Normal Saline 10 Ml Syringe IVF Not Given Q12HR [facility] Hospitalist Exam Vitals: Vital Signs (12 hours) Temp Pulse Resp BP Pulse Ox 11/12/20 16:00 98.0 F 100 18 102/55 L 100 11/12/20 11:50 98.3 F 102 H 16 131/57 L 100 11/12/20 07:55 98.0 F 97 18 117/56 L 98 Weight Admit Weight 118 lb Weight 118 lb General Appearance: awake alert General - other findings: answers questions Eye: anicteric sclera ENT: normocephalic atraumatic, no oropharyngeal lesions Neck: supple, symmetric, no JVD, no thyromegaly, no lymphadenopathy Heart: RRR, no gallops, no rubs, normal peripheral pulses Heart - other findings: S1, S2 Respiratory: CTAB, no wheezes, no rales, no ronchi, normal chest expansion Gastrointestinal: soft, non-tender, non-distended, normal bowel sounds, no palpable masses, no guarding, no rigidity Extremities: no cyanosis, no clubbing, no edema Extremities - other findings: BLE BKA's, stumps intact Skin: normal turgor Neurological: no new deficit Musculoskeletal: generalized weakness Psychiatric: oriented to person, oriented to place Hosp A/P (1) Pneumatosis intestinalis Code(s): K63.89 - OTHER SPECIFIED DISEASES OF INTESTINE Status: Acute Plan: Suspicion for ischemic bowel but exp laparoscopy negative but RAVEN was successful, continue Zosyn and supportive mgmt, considering TPN (2) Abdominal pain Code(s): R10.9 - UNSPECIFIED ABDOMINAL PAIN Status: Acute Qualifiers: Abdominal location: lower abdomen, unspecified Qualified Code(s): R10.30 - Lower abdominal pain, unspecified (3) Acute metabolic encephalopathy Code(s): G93.41 - METABOLIC ENCEPHALOPATHY Status: Acute (4) Enterocolitis Code(s): K52.9 - NONINFECTIVE GASTROENTERITIS AND COLITIS, UNSPECIFIED Status: Acute (5) Hypokalemia Code(s): E87.6 - HYPOKALEMIA Status: Acute (6) Nausea & vomiting Code(s): R11.2 - NAUSEA WITH VOMITING, UNSPECIFIED Status: Acute (7) ESRD (end stage renal disease) on dialysis Code(s): N18.6 - END STAGE RENAL DISEASE; Z99.2 - DEPENDENCE ON RENAL DIALYSIS Status: Chronic Plan: Metabolic acidosis noted, HD per Renal service, will need sodium bicarbonate - Plan continue antibiotics, PT/OT, drug abuse social worker Continue supportive mgmt Continue Zosyn HD per Renal service Continue D5 NS @ 75ml/h Serial abd exams Consider TPN Continue clear liquids AM lab: BMP, CBC
[2020-11-12] MEDS: Dextrose 5%-Lactated Ringers 1,000 ML IV SCH (16:49)
[2020-11-12] MEDS: Famotidine/PF 20 mg/2ml Vial SLOW IVP SCH (20:35)
[2020-11-13 03:38] LABS: #Basophils 0.1 thou/uL (0.0-0.2); #Eosinphils 0.1 thou/uL (0.0-0.7); #Monocytes 0.7 thou/uL (0.11-0.59); #Neutrophils 8.3 thou/uL (1.40-6.50); %Basophils 0.4 % (0.0-1.0); %Eosinophils 0.8 % (0.0-10.0); %Lymphocytes 24.9 % (21.0-51.0); %Monocytes 5.4 % (0.0-10.0); %Neutrophils 68.5 % (42.0-75.0); Hemoglobin 11.1 g/dL (12.0-16.0); Mean Corpuscular HGB CONC 31.2 g/dL (32.0-36.0); Mean Corpuscular Volume 99.2 fL (78.0-98.0); Mean Platelet Volume 7.7 fL (7.4-10.4); Platelet Count 192 thou/uL (130-400); RBC Distribution Width 15.4 % (11.5-14.5); Red Blood Cell (RBC) Count 3.58 mill/uL (4.20-5.40); White Blood Cell (WBC) Count 12.2 thou/uL (4.8-10.8)
[2020-11-13 03:58] LABS: Anion Gap 15 mmol/L (10-20); BUN (Urea Nitrogen) 14 mg/dL (9.8-20.1); Calc. Creatinine Clearance 18 mL/min (70-130); Carbon Dioxide 20 mmol/L (23-31); Chloride 106 mmol/L (98-107); Glucose 191 mg/dL (80-115); Sodium 138 mmol/L (136-145)
[2020-11-13] MEDS: Dextrose 5%-Lactated Ringers 1,000 ML IV SCH (04:57)
--- NOTE | 2020-11-13 07:10 | PRG ---
DATE OF SERVICE: 11/13/2020 SUBJECTIVE: Ms. Saldivar is a 59-year-old female, followed up by the Renal Service for ESRD. She underwent hemodialysis yesterday and tolerated the said treatment. We pulled minimal fluid due to her decreased p.o. intake. In addition, the patient was initially admitted for abdominal pain. She has undergone operative procedure - diagnostic laparoscopy with subsequent lysis of intraabdominal adhesions. Finding of ischemic bowel, but no necrotic bowel per se. As per recommendation by Surgery, a conservative approach will be most appropriate. She still has decreased p.o. intake. No complaints of chest pain or shortness of breath. OBJECTIVE: VITAL SIGNS: Blood pressure 158/85, heart rate 102, respiratory rate 18, temperature 98.2, O2 saturation 98%. GENERAL: The patient is awake, comfortable, not in overt distress. SKIN: Adequate turgor. HEENT: She has pinkish conjunctivae. Anicteric sclerae. No neck mass. No carotid bruits. No JVD. CHEST: No deformities. LUNGS: Clear breath sounds. No wheezing. No crackles. HEART: Normal sinus rhythm. No murmurs. No gallops. No rubs. ABDOMEN: Globular, soft, nontender. No masses. EXTREMITIES: Bilateral leg amputation. MEDICATIONS: Medications of November 13, 2020, were reviewed. LABORATORY DATA: On November 13, 2020; white count 12.2, hemoglobin 11.1. Sodium 138, potassium 3, chloride 106, carbon dioxide 30, BUN 14, creatinine 2.7, glucose 191, calcium 7. ASSESSMENT AND PLAN: 1. Mild hypokalemia. We will try to correct this with dialysis. We will be changing the dialysis bath to a 4.0 potassium bath. 2. ESRD. The patient is scheduled for regular dialysis today. The patient will be done for a total of 3 hours. Minimal fluid removal due to decreased p.o. intake. As previously mentioned, we will correct potassium bath to a 4.0 potassium bath due to the low potassium in this patient. 3. Metabolic acidosis, much improved with dialysis yesterday. We will continue Wednesday, Wednesday, Wednesday regular hemodialysis. 4. Abdominal pain - ischemic bowel - continuing supportive care. Surgery is following. Consideration for TPN is being entertained due to the decreased p.o. intake. We will recheck CBC, basic metabolic in a.m. Job ID: [id number]
[2020-11-13] MEDS: Piperacillin/Tazobactam 2.25 GM in Sodium Chloride 0.9% 100 ML IVPB SCH ×2 (08:28→20:37)
--- NOTE | 2020-11-13 10:42 | RAD ---
RADIOGRAPH ABDOMEN 1 VIEW: Date: 11/13/2020 Time: 0845 hours HISTORY: 59-year-old female. Follow-up bowel distention. COMPARISON: 11/09/2020. FINDINGS: The portal venous gas is no longer evident. There continues to be a large amount of gas in multiple l oops of large intestine, and some in a few small bowel loops at right lower quadrant. No evidence of organomegaly. The esophagogastric tube has been removed. The stomach is not excessively distended. IMPRESSION: 1. Significant interval improvement in portal venous gas throughout the liver. 2. Large amount of bowel gas remains, suggestive of ileus. POS: [facility]
--- NOTE | 2020-11-13 14:09 | PDOC.HOSPP ---
- Subjective Encounter Date: 11/13/20 Encounter Time: 14:00 Subjective: f/u for ischemic bowel/ileus s/p laparoscopic RAVEN. Overall feels ok and states she is hungry. Clear liquids ordered. No BM today. - Objective Vital Signs & Weight: Vital Signs (12 hours) Temp Pulse Resp BP Pulse Ox 11/13/20 11:24 98.0 F 95 16 160/73 H 97 11/13/20 07:34 97.3 F L 93 16 122/58 L 99 11/13/20 03:08 98.2 F 102 H 18 158/85 H 98 Weight Admit Weight 118 lb Weight 120 lb I&O: 11/12/20 11/13/20 11/14/20 06:59 06:59 06:59 Intake Total 1210 825 Output Total 200 0 Balance 1010 825 Result Diagrams: 11/13/20 03:27 11/13/20 03:27 Additional Labs: Accuchecks 11/13/20 11/13/20 11/13/20 12:14 05:59 00:20 POC Glucose 79 83 73 11/12/20 11/12/20 14:50 13:09 POC Glucose 74 53 L* Microbiology 11/10/20 Unknown Stool C. difficile GDH Antigen & Toxins - Final 11/09/20 19:50 Stool - Pending Escherichia coli 0157 Culture - Final 11/09/20 19:50 Stool - Pending Campylobacter Antigen Assay - Final 11/09/20 19:50 Stool - Pending Shiga Toxin Test - Final 11/09/20 19:50 Stool - Pending C. difficile GDH Antigen & Toxins - Final 11/18/18 14:27 Venous blood - Right Hand Blood Culture - Preliminary Specimen has been received and culture in progress. No Growth to date. 11/18/18 14:26 Venous blood - Right Arm Blood Culture - Preliminary Specimen has been received and culture in progress. No Growth to date. 11/09/20 19:50 Stool - Pending Stool Culture - Preliminary 11/09/20 17:50 Venous blood - Left Arm Blood Culture - Preliminary Specimen has been received and culture in progress. No Growth to date. 11/09/20 17:50 Venous blood - Left Arm Blood Culture - Preliminary Specimen has been received and culture in progress. No Growth to date. Laboratory Tests 11/18/18 11/18/1811/18/19 14:26 14:26 14:26 WBC Hgb 11.6 L Sodium 135 L Potassium Carbon Dioxide BUN 38 H Creatinine 5.78 H Lactic Acid 0.9 Phosphorus Magnesium B-Natriuretic Peptide Lipase Hep Bs Antigen Influenza A RNA INAAT Influenza B RNA INAAT SARS-CoV-2 Rap RNA(RT-PCR) 11/09/20 11/09/20 11/09/20 17:50 17:50 17:50 WBC 13.7 H Hgb Sodium Potassium Carbon Dioxide BUN Creatinine Lactic Acid 1.9 Phosphorus Magnesium B-Natriuretic Peptide 165.1 H Lipase Hep Bs Antigen Influenza A RNA INAAT Influenza B RNA INAAT SARS-CoV-2 Rap RNA(RT-PCR) 11/09/20 11/09/20 11/10/20 17:55 20:01 01:36 WBC Hgb Sodium Potassium 3.5 3.4 L Carbon Dioxide 18 L 14 L BUN Creatinine 3.64 H 3.75 H Lactic Acid Phosphorus Magnesium 1.9 B-Natriuretic Peptide Lipase 17 Hep Bs Antigen Influenza A RNA INAAT Not Detected Influenza B RNA INAAT Not Detected SARS-CoV-2 Rap RNA(RT-PCR) Not Detected 11/10/20 11/10/20 11/10/20 01:36 01:36 09:59 WBC 18.6 H Hgb Sodium Potassium Carbon Dioxide BUN Creatinine Lactic Acid 3.0 H 2.1 Phosphorus Magnesium B-Natriuretic Peptide Lipase Hep Bs Antigen Influenza A RNA INAAT Influenza B RNA INAAT SARS-CoV-2 Rap RNA(RT-PCR) 11/10/20 11/11/20 11/11/20 10:07 04:12 04:12 WBC 20.3 H Hgb Sodium Potassium Carbon Dioxide 13 L BUN Creatinine Lactic Acid Phosphorus 2.8 Magnesium B-Natriuretic Peptide Lipase Hep Bs Antigen Influenza A RNA INAAT Influenza B RNA INAAT SARS-CoV-2 Rap RNA(RT-PCR) 11/12/20 08:20 WBC Hgb Sodium Potassium Carbon Dioxide BUN Creatinine Lactic Acid Phosphorus Magnesium B-Natriuretic Peptide Lipase Hep Bs Antigen Non-Reactive Influenza A RNA INAAT Influenza B RNA INAAT SARS-CoV-2 Rap RNA(RT-PCR) Radiology Reviewed by me: Yes (KUB - + ileus) EKG Reviewed by me: Yes (Tele - SR) Hospitalist ROS - Medication Medications: Active Medications Generic Name Dose Route Start Last Admin Trade Name Freq PRN Reason Stop Dose Admin Acetaminophen 650 mg 11/09/20 19:19 11/11/20 19:21 Acetaminophen 325 Mg Tab PO 650 mg Q4H PRN Administration Headache/Fever/Mild Pain (1-3) Dextrose/Water 25 gm 11/09/20 19:35 11/12/20 06:20 Dextrose 50% Abboject 50 Ml Syringe SLOW IVP 25 gm PRN PRN Administration Hypoglycemia Famotidine 20 mg 11/10/20 21:00 11/12/20 20:35 Famotidine/Pf 20 Mg/2ml Vial SLOW IVP 20 mg 2100 JONATHAN Administration Dextrose/Water 1,000 mls @ 0 mls/hr 11/09/20 19:35 11/12/20 13:20 D5w IV 1,000 mls .Q0M PRN Administration Hypoglycemia As Directed Piperacillin Sod/Tazobactam 100 mls @ 100 mls/hr 11/09/20 20:00 11/13/20 08:28 Sod 2.25 gm/ Sodium Chloride IVPB 100 mls 0800,2000 JONATHAN Administration Dextrose/Lactated Ringer's 1,000 mls @ 75 mls/hr 11/12/20 14:45 11/13/20 04:57 D5 Lr IV 1,000 mls .[id number] JONATHAN Administration Morphine Sulfate 2 mg 11/09/20 19:19 11/12/20 19:05 Morphine 2 Mg/Ml Vial SLOW IVP 2 mg Q4H PRN Administration Pain Ondansetron HCl 4 mg 11/09/20 19:19 11/13/20 11:22 Ondansetron Odt 4 Mg Tab PO 4 mg Q6H PRN Administration Nausea/Vomiting Sodium Chloride 10 ml 11/10/20 21:00 11/13/20 08:30 Flush - Normal Saline 10 Ml Syringe IVF 10 ml Q12HR JONATHAN Administration Hospitalist Exam Vitals: Vital Signs (12 hours) Temp Pulse Resp BP Pulse Ox 11/13/20 11:24 98.0 F 95 16 160/73 H 97 11/13/20 07:34 97.3 F L 93 16 122/58 L 99 11/13/20 03:08 98.2 F 102 H 18 158/85 H 98 Weight Admit Weight 118 lb Weight 120 lb General Appearance: awake alert Eye: anicteric sclera ENT: normocephalic atraumatic, no oropharyngeal lesions Neck: supple Heart: RRR, no gallops, no rubs, normal peripheral pulses Heart - other findings: S1, S2 Respiratory: CTAB, no wheezes, no rales, no ronchi, normal chest expansion Gastrointestinal: soft, non-tender, non-distended, no guarding, no rigidity, diminished bowl sounds Extremities: no cyanosis, no clubbing, no edema Extremities - other findings: Bilat BKA Skin: normal turgor Neurological: no new deficit Musculoskeletal: generalized weakness Psychiatric: oriented to person Hosp A/P (1) Pneumatosis intestinalis Code(s): K63.89 - OTHER SPECIFIED DISEASES OF INTESTINE Status: Acute Plan: s/p laparoscopic RAVEN, ischemic bowel noted but no necrosis and conservatively managed, clear liquids (2) Abdominal pain Code(s): R10.9 - UNSPECIFIED ABDOMINAL PAIN Status: Acute Qualifiers: Abdominal location: lower abdomen, unspecified Qualified Code(s): R10.30 - Lower abdominal pain, unspecified (3) Acute metabolic encephalopathy Code(s): G93.41 - METABOLIC ENCEPHALOPATHY Status: Acute (4) Enterocolitis Code(s): K52.9 - NONINFECTIVE GASTROENTERITIS AND COLITIS, UNSPECIFIED Status: Acute (5) Hypokalemia Code(s): E87.6 - HYPOKALEMIA Status: Acute (6) Nausea & vomiting Code(s): R11.2 - NAUSEA WITH VOMITING, UNSPECIFIED Status: Acute (7) ESRD (end stage renal disease) on dialysis Code(s): N18.6 - END STAGE RENAL DISEASE; Z99.2 - DEPENDENCE ON RENAL DIALYSIS Status: Chronic Plan: HD per Renal service - Plan continue antibiotics, protective services social worker Continue supportive mgmt Continue Zosyn HD per Renal service Continue D5 NS @ 75ml/h Serial abd exams Consider TPN Continue clear liquids AM lab: BMP, CBC
--- NOTE | 2020-11-13 16:43 | PRG ---
DATE OF SERVICE: 11/13/2020 SUBJECTIVE: Ms. Saldivar is postoperative day #2 following diagnostic laparoscopy and lysis of adhesions. I started her on a clear liquid diet yesterday. She tells me she has been drinking some and feels nauseated, but she tells me she has not vomited. I obtained a KUB today that shows diffuse dilatation of multiple loops of bowel. PHYSICAL EXAMINATION: VITAL SIGNS: She is afebrile. Pulse is 103, blood pressure 116/59. LUNGS: Clear to auscultation. ABDOMEN: Entirely soft with incisions healing nicely. I am unable to appreciate any bowel sounds. LABORATORY DATA: Her white blood cell count has dropped from 16 yesterday down to 12.2. Hemoglobin stable at 11.1. Her chemistries are improved following her dialysis yesterday. Her carbon dioxide is up to 20. She is hypokalemic with a potassium of 3. ASSESSMENT: The patient is stable following her surgery. She is still clearly ready to eat however. She was admitted to the hospital on the , and she has been without substantial nutrition during that time. If she does not show evidence of being able to tolerate oral intake tomorrow, I would anticipate we will need to place a central line and initiate TPN. Job ID: [id number]
[2020-11-13] MEDS: Famotidine/PF 20 mg/2ml Vial SLOW IVP SCH (20:38)
[2020-11-14] MEDS: Dextrose 5%-Lactated Ringers 1,000 ML IV SCH ×2 (01:32→18:21)
[2020-11-14 04:30] LABS: #Basophils 0.1 thou/uL (0.0-0.2); #Eosinphils 0.1 thou/uL (0.0-0.7); #Lymphocytes 2.9 thou/uL (1.20-3.40); #Monocytes 0.6 thou/uL (0.11-0.59); #Neutrophils 4.8 thou/uL (1.40-6.50); %Basophils 1.1 % (0.0-1.0); %Lymphocytes 34.3 % (21.0-51.0); %Monocytes 7.5 % (0.0-10.0); %Neutrophils 56.1 % (42.0-75.0); Hemoglobin 11.5 g/dL (12.0-16.0); Mean Corpuscular HGB CONC 31.4 g/dL (32.0-36.0); Mean Corpuscular Hemoglobin 31.1 pg (27.0-31.0); Mean Corpuscular Volume 99.1 fL (78.0-98.0); Mean Platelet Volume 7.2 fL (7.4-10.4); Platelet Count 163 thou/uL (130-400); RBC Distribution Width 15.2 % (11.5-14.5); Red Blood Cell (RBC) Count 3.69 mill/uL (4.20-5.40); White Blood Cell (WBC) Count 8.6 thou/uL (4.8-10.8)
[2020-11-14 04:43] LABS: Anion Gap 10 mmol/L (10-20); BUN (Urea Nitrogen) 6 mg/dL (9.8-20.1); Calc. Creatinine Clearance 28 mL/min (70-130); Calcium 6.9 mg/dL (7.8-10.44); Carbon Dioxide 27 mmol/L (23-31); Chloride 105 mmol/L (98-107); Glucose 77 mg/dL (80-115); Potassium 3.2 mmol/L (3.5-5.1); Sodium 139 mmol/L (136-145)
[2020-11-14] MEDS: Morphine 2 MG/ML VIAL SLOW IVP PRN ×2 (08:11→17:25)
[2020-11-14] MEDS: Piperacillin/Tazobactam 2.25 GM in Sodium Chloride 0.9% 100 ML IVPB SCH ×2 (08:18→21:31)
--- NOTE | 2020-11-14 09:17 | PRG ---
DATE OF SERVICE: 11/14/2020 SUBJECTIVE: Ms. Saldivar is a 59-year-old white female with ESRD and currently on maintenance hemodialysis. She underwent hemodialysis yesterday without any difficulty. Fluid removal was done. She still complains of abdominal pain. She recently had a diagnostic laparoscopy and lysis of adhesions. She has still significant decreased p.o. intake. Possibility of initiating TPN is being considered by her surgeon. The patient denies any chest pain or shortness of breath. OBJECTIVE: VITAL SIGNS: Blood pressure 145/65, heart rate 88, respiratory rate 16, temperature 98.1, O2 saturation 99%. GENERAL: The patient is awake, alert, comfortable, not in overt distress. SKIN: Adequate turgor. HEENT: She has pinkish conjunctivae. Anicteric sclerae. No neck mass. No carotid bruits. No JVD. CHEST: No deformities. LUNGS: Clear breath sounds. No wheezing. No crackles. HEART: Normal sinus rhythm. No murmurs, no gallops, no rubs. ABDOMEN: Globular, soft, nontender. No masses. EXTREMITIES: No edema. No deformities. MEDICATIONS: Medications of November 14, 2020, were reviewed. LABORATORY DATA: On November 14, 2020; white count 8.6, hemoglobin 11.5. Sodium 139, potassium 3.2, chloride 105, carbon dioxide 27, BUN 6, creatinine 1.79, calcium 6.9. ASSESSMENT AND PLAN: 1. ESRD, stable. No indication for any emergent hemodialysis. Continue Wednesday, Wednesday, and Wednesday dialysis regimen. Fluid removal only as tolerated. 2. Mild hypokalemia/mild hypocalcemia. Currently, on lactated Ringer solution. 3. Decreased p.o. intake - consideration for TPN is being entertained by her surgeon. 4. Abdominal pain - the patient is status post laparoscopic procedure with lysis of adhesions, stable. We will be rechecking a CBC, basic metabolic in a.m. Job ID: [id number]
[2020-11-14 09:52] LABS: Anion Gap 12 mmol/L (10-20); BUN (Urea Nitrogen) 7 mg/dL (9.8-20.1); Calc. Creatinine Clearance 24 mL/min (70-130); Calcium 6.8 mg/dL (7.8-10.44); Carbon Dioxide 25 mmol/L (23-31); Chloride 105 mmol/L (98-107); Glucose 73 mg/dL (80-115); Sodium 139 mmol/L (136-145)
--- NOTE | 2020-11-14 10:20 | PDOC.HOSPP ---
- Subjective Encounter Date: 11/14/20 Encounter Time: 09:40 Subjective: f/u for ileus/ischemic bowel s/p exp lap with RAVEN POD #2. Feels better overall and tolerating clear liquids. + flatus but no BM. No new complaints. - Objective Vital Signs & Weight: Vital Signs (12 hours) Temp Pulse Resp BP Pulse Ox 11/14/20 03:31 98.1 F 88 16 145/65 H 99 Weight Admit Weight 118 lb Weight 123 lb I&O: 11/13/20 11/14/20 11/15/20 06:59 06:59 06:59 Intake Total 825 1525 Output Total 0 500 Balance 825 1025 Result Diagrams: 11/14/20 03:58 11/14/20 09:18 Additional Labs: Accuchecks 11/14/20 11/13/20 11/13/20 05:48 19:36 12:14 POC Glucose 81 72 79 Microbiology 11/10/20 Unknown Stool C. difficile GDH Antigen & Toxins - Final 11/09/20 19:50 Stool - Pending Escherichia coli 0157 Culture - Final 11/09/20 19:50 Stool - Pending Campylobacter Antigen Assay - Final 11/09/20 19:50 Stool - Pending Shiga Toxin Test - Final 11/09/20 19:50 Stool - Pending C. difficile GDH Antigen & Toxins - Final 11/18/18 14:27 Venous blood - Right Hand Blood Culture - Preliminary Specimen has been received and culture in progress. No Growth to date. 11/18/18 14:26 Venous blood - Right Arm Blood Culture - Preliminary Specimen has been received and culture in progress. No Growth to date. 11/09/20 19:50 Stool - Pending Stool Culture - Preliminary 11/09/20 17:50 Venous blood - Left Arm Blood Culture - Preliminary Specimen has been received and culture in progress. No Growth to date. 11/09/20 17:50 Venous blood - Left Arm Blood Culture - Preliminary Specimen has been received and culture in progress. No Growth to date. Laboratory Tests 11/18/18 11/18/18 11/18/18 14:26 14:26 14:26 WBC Hgb 11.6 L Sodium 135 L Potassium Carbon Dioxide BUN 38 H Creatinine 5.78 H Lactic Acid 0.9 Phosphorus Magnesium B-Natriuretic Peptide Lipase Hep Bs Antigen Influenza A RNA INAAT Influenza B RNA INAAT SARS-CoV-2 Rap RNA(RT-PCR) 11/09/20 11/09/20 11/09/20 17:50 17:50 17:50 WBC 13.7 H Hgb Sodium Potassium Carbon Dioxide BUN Creatinine Lactic Acid 1.9 Phosphorus Magnesium B-Natriuretic Peptide 165.1 H Lipase Hep Bs Antigen Influenza A RNA INAAT Influenza B RNA INAAT SARS-CoV-2 Rap RNA(RT-PCR) 11/09/20 11/09/20 11/10/20 17:55 20:01 01:36 WBC Hgb Sodium Potassium 3.5 3.4 L Carbon Dioxide 18 L 14 L BUN Creatinine 3.64 H 3.75 H Lactic Acid Phosphorus Magnesium 1.9 B-Natriuretic Peptide Lipase 17 Hep Bs Antigen Influenza A RNA INAAT Not Detected Influenza B RNA INAAT Not Detected SARS-CoV-2 Rap RNA(RT-PCR) Not Detected 11/10/20 11/10/20 11/10/20 01:36 01:36 09:59 WBC 18.6 H Hgb Sodium Potassium Carbon Dioxide BUN Creatinine Lactic Acid 3.0 H 2.1 Phosphorus Magnesium B-Natriuretic Peptide Lipase Hep Bs Antigen Influenza A RNA INAAT Influenza B RNA INAAT SARS-CoV-2 Rap RNA(RT-PCR) 11/10/20 11/11/20 11/11/20 10:07 04:12 04:12 WBC 20.3 H Hgb Sodium Potassium Carbon Dioxide 13 L BUN Creatinine Lactic Acid Phosphorus 2.8 Magnesium B-Natriuretic Peptide Lipase Hep Bs Antigen Influenza A RNA INAAT Influenza B RNA INAAT SARS-CoV-2 Rap RNA(RT-PCR) 11/12/20 08:20 WBC Hgb Sodium Potassium Carbon Dioxide BUN Creatinine Lactic Acid Phosphorus Magnesium B-Natriuretic Peptide Lipase Hep Bs Antigen Non-Reactive Influenza A RNA INAAT Influenza B RNA INAAT SARS-CoV-2 Rap RNA(RT-PCR) EKG Reviewed by me: Yes (Tele - SR) Hospitalist ROS - Medication Medications: Active Medications Generic Name Dose Route Start Last Admin Trade Name Freq PRN Reason Stop Dose Admin Acetaminophen 650 mg 11/09/20 19:19 11/11/20 19:21 Acetaminophen 325 Mg Tab PO 650 mg Q4H PRN Administration Headache/Fever/Mild Pain (1-3) Dextrose/Water 25 gm 11/09/20 19:35 11/12/20 06:20 Dextrose 50% Abboject 50 Ml Syringe SLOW IVP 25 gm PRN PRN Administration Hypoglycemia Famotidine 20 mg 11/10/20 21:00 11/13/20 20:38 Famotidine/Pf 20 Mg/2ml Vial SLOW IVP 20 mg 2100 JONATHAN Administration Dextrose/Water 1,000 mls @ 0 mls/hr 11/09/20 19:35 11/12/20 13:20 D5w IV 1,000 mls .Q0M PRN Administration Hypoglycemia As Directed Piperacillin Sod/Tazobactam 100 mls @ 100 mls/hr 11/09/20 20:00 11/14/20 08:18 Sod 2.25 gm/ Sodium Chloride IVPB 100 mls 0800,2000 JONATHAN Administration Morphine Sulfate 2 mg 11/09/20 19:19 11/14/20 08:11 Morphine 2 Mg/Ml Vial SLOW IVP 2 mg Q4H PRN Administration Pain Ondansetron HCl 4 mg 11/09/20 19:19 11/13/20 11:22 Ondansetron Odt 4 Mg Tab PO 4 mg Q6H PRN Administration Nausea/Vomiting Sodium Chloride 10 ml 11/10/20 21:00 11/14/20 08:17 Flush - Normal Saline 10 Ml Syringe IVF 10 ml Q12HR JONATHAN Administration Hospitalist Exam Vitals: Vital Signs (12 hours) Temp Pulse Resp BP Pulse Ox 11/14/20 03:31 98.1 F 88 16 145/65 H 99 Weight Admit Weight 118 lb Weight 123 lb General Appearance: NAD, awake alert Eye: anicteric sclera ENT: normocephalic atraumatic, no oropharyngeal lesions Neck: supple, symmetric, no JVD, no thyromegaly, no lymphadenopathy Heart: RRR, no gallops, no rubs, normal peripheral pulses Heart - other findings: S1, S2 Respiratory: CTAB, no wheezes, no rales, no ronchi, normal chest expansion Gastrointestinal: soft, non-tender, non-distended, normal bowel sounds, no palpable masses Extremities: no cyanosis, no clubbing Extremities - other findings: bilat BKA's, stumps intact Skin: normal turgor Neurological: no new deficit Musculoskeletal: normal tone, generalized weakness Psychiatric: normal affect, A&O x 3 Hosp A/P (1) Pneumatosis intestinalis Code(s): K63.89 - OTHER SPECIFIED DISEASES OF INTESTINE Status: Acute Plan: Secondary to ischemic bowel s/p RAVEN POD #2, overall improved, advance to full liquid diet (2) Abdominal pain Code(s): R10.9 - UNSPECIFIED ABDOMINAL PAIN Status: Acute Qualifiers: Abdominal location: lower abdomen, unspecified Qualified Code(s): R10.30 - Lower abdominal pain, unspecified Plan: Improved, post-op ileus improved (3) Acute metabolic encephalopathy Code(s): G93.41 - METABOLIC ENCEPHALOPATHY Status: Acute Plan: resolved (4) Enterocolitis Code(s): K52.9 - NONINFECTIVE GASTROENTERITIS AND COLITIS, UNSPECIFIED Status: Acute (5) Hypokalemia Code(s): E87.6 - HYPOKALEMIA Status: Acute (6) Nausea & vomiting Code(s): R11.2 - NAUSEA WITH VOMITING, UNSPECIFIED Status: Acute (7) ESRD (end stage renal disease) on dialysis Code(s): N18.6 - END STAGE RENAL DISEASE; Z99.2 - DEPENDENCE ON RENAL DIALYSIS Status: Chronic Plan: HD per Renal service - Plan continue antibiotics, PT/OT, delinquency prevention social worker Continue supportive mgmt Continue Zosyn HD per Renal service Continue D5 NS @ 50ml/h Serial abd exams Full liquid diet Continue clear liquids AM lab: BMP, CBC [facility]
[2020-11-14] MEDS: Famotidine/PF 20 mg/2ml Vial SLOW IVP SCH (21:32)
[2020-11-15 06:25] LABS: #Basophils 0.1 thou/uL (0.0-0.2); #Eosinphils 0.1 thou/uL (0.0-0.7); #Lymphocytes 2.7 thou/uL (1.20-3.40); #Monocytes 0.9 thou/uL (0.11-0.59); %Basophils 0.6 % (0.0-1.0); %Eosinophils 0.9 % (0.0-10.0); %Lymphocytes 25.6 % (21.0-51.0); Hemoglobin 11.9 g/dL (12.0-16.0); Mean Corpuscular Hemoglobin 30.8 pg (27.0-31.0); Mean Corpuscular Volume 99.4 fL (78.0-98.0); Mean Platelet Volume 7.2 fL (7.4-10.4); Platelet Count 146 thou/uL (130-400); RBC Distribution Width 14.9 % (11.5-14.5); Red Blood Cell (RBC) Count 3.85 mill/uL (4.20-5.40); White Blood Cell (WBC) Count 10.7 thou/uL (4.8-10.8)
[2020-11-15] MEDS: Piperacillin/Tazobactam 2.25 GM in Sodium Chloride 0.9% 100 ML IVPB SCH ×2 (08:24→19:41)
--- NOTE | 2020-11-15 08:25 | PDOC.GSPN ---
Surgery Progress Note: Subj - Subjective Patient reports: positive flatus, tolerating liquids well Narrative: Ms. Saldivar is a 59 y/o female with a history of ESRD on h/d, DM on insulin, CAD, PVD, diastoli CHF, HLD who is POD 4 for diagnostic laparoscopy, lysis of intrabdominal adhesions, evaluation of small bowell and righ colon without any bowel resection. Pt stated she did not sleep well overnight and that her pain level is a 9 out of 10. She noted she has been able to tolerate her liquid diet without any nausea, vomiting, or diarrhea. She stated she has been able to pass flatulence but is unsure if she has had a bowel movement. She is eating well without any problems swallowing or choking. Surgery Progress Note: Obj - Vital signs Vital signs: Vital Signs - Most Recent Temp Pulse Resp BP Pulse Ox 98.1 F 88 16 151/71 H 100 11/15/20 07:31 11/15/20 07:31 11/15/20 07:31 11/15/20 07:31 11/15/20 07:31 - Physical Exam General: no distress, chronically ill Neck: no lymphadectomy Cardiovascular: regular rate and rhythm Respiratory: clear to auscultation, normal respiratory effort, breath sounds present Abdomen: distended, tender (tender to palpation in mid-epigastric area), other (hypoactive bowel sounds) Wound: dressing clean,dry,intact, healing well Surgery Progress Note: Results - Labs Result Diagrams: 11/15/20 05:55 11/14/20 09:18 Lab results: Laboratory Results - last 12 hr 11/15/20 11/15/20 11/15/20 03:02 05:55 06:15 WBC 10.7 RBC 3.85 L Hgb 11.9 L Hct 38.3 MCV 99.4 H MCH 30.8 MCHC 31.0 L RDW 14.9 H Plt Count 146 MPV 7.2 L Neutrophils % 65.0 Lymphocytes % 25.6 Monocytes % 8.0 Eosinophils % 0.9 Basophils % 0.6 Neutrophils # 7.0 H Lymphocytes # 2.7 Monocytes # 0.9 H Eosinophils # 0.1 Basophils # 0.1 POC Glucose 66 L 94 Surgery Progress Note: A/P - Plan Plan: MS. Saldivar is a 59 y/o female with a history of ESRD on h/d, CAD, PVD, DM on insulin, diastolic CHF, and HLD who is POD 4 for exploartory laparoscopy, lysis of intrabdominal adhesions, and evaluation of entire small bowel and right colon without resection. She is progressing as she can now tolerate PO intake and expressed the want of eating. -Monitor patients pain level and treat pain with PRN morhpine and acetaminophen -monitor patient's BP: consider restarting patient's home medication of metoprolol -continue patient on clear liquid diet -continue to monitor patient for bowel movement -continue patient on hemodialysis while hospitalized
--- NOTE | 2020-11-15 10:05 | PRG ---
DATE OF SERVICE: 11/15/2020 SUBJECTIVE: Ms. Saldivar is a 59-year-old female with ESRD and currently on maintenance hemodialysis. She is undergoing hemodialysis at the present time. Ms. Saldivar also came with an abdominal pain. She underwent the diagnostic laparoscopy with lysis of intraabdominal adhesions. No bowel resection was done at that time. She is eating a little better in the last 24 hours. She denies any chest pain, shortness of breath, or abdominal pain. OBJECTIVE: VITAL SIGNS: Blood pressure is 151/71, heart rate 88, respiratory rate 16, temperature 98.1, O2 saturation 100%. GENERAL: The patient is awake, alert, comfortable, not in overt distress. SKIN: Adequate turgor. HEENT: Pinkish conjunctivae. Anicteric sclerae. NECK: No neck mass. No carotid bruits. No JVD. CHEST: No deformities. LUNGS: Clear breath sounds. No wheezing. No crackles. HEART: Normal sinus rhythm. No murmur. No gallops. No rubs. ABDOMEN: Globular. Soft. Nontender. No masses. EXTREMITIES: Bilateral leg amputation. MEDICATIONS: November 15, 2020, was reviewed. LABORATORY DATA: November 15, 2020, white count 10.7, hemoglobin 11.9, hematocrit 38.3. November 14, 2020, sodium potassium 3, chloride 105, carbon dioxide 25, BUN 7, creatinine 2.18, calcium 6.8. ASSESSMENT AND PLAN: 1. End-stage renal disease stable. We will continue current hemodialysis regimen of Wednesday, Wednesday, and Wednesday. Fluid removal only as tolerated with the patient. 2. Mild hypokalemia - currently on a 4.0 potassium bath. 3. Abdominal pain - clinically improving, status post diagnostic laparoscopy with lysis of adhesions. 4. We will recheck CBC and basic metabolic in the a.m. Job ID: [id number]
--- NOTE | 2020-11-15 15:31 | PDOC.HOSPP ---
- Subjective Encounter Date: 11/15/20 Encounter Time: 15:30 Subjective: f/u for ischemic bowel/ileus s/p exp laparoscopy with RAVEN. Overall feeling ok but abd remains distended. Rectal tube placed due to inability to consistently empty rectum on own. Tolerating full liquid diet. - Objective Vital Signs & Weight: Vital Signs (12 hours) Temp Pulse Resp BP Pulse Ox 11/15/20 13:30 98.1 F 100 20 110/70 100 11/15/20 08:20 100 11/15/20 07:31 98.1 F 88 16 151/71 H 100 11/15/20 04:00 97.5 F L 94 18 142/64 H 100 Weight Admit Weight 118 lb Weight 120 lb I&O: 11/14/20 11/15/20 11/16/20 06:59 06:59 06:59 Intake Total 1525 1530 Output Total 500 Balance 1025 1530 Result Diagrams: 11/15/20 05:55 11/14/20 09:18 Additional Labs: Accuchecks 11/15/20 11/15/20 11/15/20 13:23 06:15 04:55 POC Glucose 105 H 94 96 11/15/20 11/14/20 03:02 18:34 POC Glucose 66 L 79 Microbiology 11/10/20 Unknown Stool C. difficile GDH Antigen & Toxins - Final 11/09/20 19:50 Stool - Pending Escherichia coli 0157 Culture - Final 11/09/20 19:50 Stool - Pending Campylobacter Antigen Assay - Final 11/09/20 19:50 Stool - Pending Shiga Toxin Test - Final 11/09/20 19:50 Stool - Pending C. difficile GDH Antigen & Toxins - Final 11/18/18 14:27 Venous blood - Right Hand Blood Culture - Preliminary Specimen has been received and culture in progress. No Growth to date. 11/18/18 14:26 Venous blood - Right Arm Blood Culture - Preliminary Specimen has been received and culture in progress. No Growth to date. 11/09/20 19:50 Stool - Pending Stool Culture - Preliminary 11/09/20 17:50 Venous blood - Left Arm Blood Culture - Preliminary Specimen has been received and culture in progress. No Growth to date. 11/09/20 17:50 Venous blood - Left Arm Blood Culture - Preliminary Specimen has been received and culture in progress. No Growth to date. Laboratory Tests 11/18/18 11/18/18 11/18/18 14:26 14:26 14:26 WBC Hgb 11.6 L Sodium 135 L Potassium Carbon Dioxide BUN 38 H Creatinine 5.78 H Lactic Acid 0.9 Phosphorus Magnesium B-Natriuretic Peptide Lipase Hep Bs Antigen Influenza A RNA INAAT Influenza B RNA INAAT SARS-CoV-2 Rap RNA(RT-PCR) 11/09/20 11/09/20 11/09/20 17:50 17:50 17:50 WBC 13.7 H Hgb Sodium Potassium Carbon Dioxide BUN Creatinine Lactic Acid 1.9 Phosphorus Magnesium B-Natriuretic Peptide 165.1 H Lipase Hep Bs Antigen Influenza A RNA INAAT Influenza B RNA INAAT SARS-CoV-2 Rap RNA(RT-PCR) 11/09/20 11/09/20 11/10/20 17:55 20:01 01:36 WBC Hgb Sodium Potassium 3.5 3.4 L Carbon Dioxide 18 L 14 L BUN Creatinine 3.64 H 3.75 H Lactic Acid Phosphorus Magnesium 1.9 B-Natriuretic Peptide Lipase 17 Hep Bs Antigen Influenza A RNA INAAT Not Detected Influenza B RNA INAAT Not Detected SARS-CoV-2 Rap RNA(RT-PCR) Not Detected 11/10/20 11/10/20 11/10/20 01:36 01:36 09:59 WBC 18.6 H Hgb Sodium Potassium Carbon Dioxide BUN Creatinine Lactic Acid 3.0 H 2.1 Phosphorus Magnesium B-Natriuretic Peptide Lipase Hep Bs Antigen Influenza A RNA INAAT Influenza B RNA INAAT SARS-CoV-2 Rap RNA(RT-PCR) 11/10/20 11/11/20 11/11/20 10:07 04:12 04:12 WBC 20.3 H Hgb Sodium Potassium Carbon Dioxide 13 L BUN Creatinine Lactic Acid Phosphorus 2.8 Magnesium B-Natriuretic Peptide Lipase Hep Bs Antigen Influenza A RNA INAAT Influenza B RNA INAAT SARS-CoV-2 Rap RNA(RT-PCR) 11/12/20 08:20 WBC Hgb Sodium Potassium Carbon Dioxide BUN Creatinine Lactic Acid Phosphorus Magnesium B-Natriuretic Peptide Lipase Hep Bs Antigen Non-Reactive Influenza A RNA INAAT Influenza B RNA INAAT SARS-CoV-2 Rap RNA(RT-PCR) Hospitalist ROS - Medication Medications: Active Medications Generic Name Dose Route Start Last Admin Trade Name Freq PRN Reason Stop Dose Admin Acetaminophen 650 mg 11/09/20 19:19 11/11/20 19:21 Acetaminophen 325 Mg Tab PO 650 mg Q4H PRN Administration Headache/Fever/Mild Pain (1-3) Dextrose/Water 25 gm 11/09/20 19:35 11/12/20 06:20 Dextrose 50% Abboject 50 Ml Syringe SLOW IVP 25 gm PRN PRN Administration Hypoglycemia Famotidine 20 mg 11/10/20 21:00 11/14/20 21:32 Famotidine/Pf 20 Mg/2ml Vial SLOW IVP 20 mg 2100 JONATHAN Administration Dextrose/Water 1,000 mls @ 0 mls/hr 11/09/20 19:35 11/12/20 13:20 D5w IV 1,000 mls .Q0M PRN Administration Hypoglycemia As Directed Piperacillin Sod/Tazobactam 100 mls @ 100 mls/hr 11/09/20 20:00 11/15/20 08:24 Sod 2.25 gm/ Sodium Chloride IVPB 100 mls 0800,2000 JONATHAN Administration Dextrose/Lactated Ringer's 1,000 mls @ 50 mls/hr 11/14/20 09:10 11/14/20 18: 21 D5 Lr IV 1,000 mls .Q20H JONATHAN Administration Morphine Sulfate 2 mg 11/09/20 19:19 11/14/20 17:25 Morphine 2 Mg/Ml Vial SLOW IVP 2 mg Q4H PRN Administration Pain Ondansetron HCl 4 mg 11/09/20 19:19 11/13/20 11:22 Ondansetron Odt 4 Mg Tab PO 4 mg Q6H PRN Administration Nausea/Vomiting Sodium Chloride 10 ml 11/10/20 21:00 11/15/20 08:29 Flush - Normal Saline 10 Ml Syringe IVF 10 ml Q12HR JONATHAN Administration Hospitalist Exam Vitals: Vital Signs (12 hours) Temp Pulse Resp BP Pulse Ox 11/15/20 13:30 98.1 F 100 20 110/70 100 11/15/20 08:20 100 11/15/20 07:31 98.1 F 88 16 151/71 H 100 11/15/20 04:00 97.5 F L 94 18 142/64 H 100 Weight Admit Weight 118 lb Weight 120 lb General Appearance: NAD, awake alert Eye: anicteric sclera ENT: normocephalic atraumatic, no oropharyngeal lesions Neck: supple, symmetric, no JVD, no thyromegaly, no lymphadenopathy Heart: RRR, no gallops, no rubs, normal peripheral pulses Heart - other findings: S1, S2 Respiratory: CTAB, no wheezes, no rales, no ronchi, normal chest expansion Gastrointestinal: non-tender, no guarding, no rigidity, distended, diminished bowl sounds Extremities: no cyanosis, no clubbing Extremities - other findings: Bilat BKA's Skin: normal turgor Neurological: no new deficit 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 Musculoskeletal: normal tone, generalized weakness Psychiatric: normal affect, A&O x 3 Hosp A/P (1) Pneumatosis intestinalis Code(s): K63.89 - OTHER SPECIFIED DISEASES OF INTESTINE Status: Acute Plan: Ischemic bowel noted on laparoscopy with RAVEN, continue supportive mgmt, rectal tube placed due to inability to empty rectum consistently with ileus (2) Abdominal pain Code(s): R10.9 - UNSPECIFIED ABDOMINAL PAIN Status: Acute Qualifiers: Abdominal location: lower abdomen, unspecified Qualified Code(s): R10.30 - Lower abdominal pain, unspecified (3) Acute metabolic encephalopathy Code(s): G93.41 - METABOLIC ENCEPHALOPATHY Status: Acute Plan: resolved (4) Enterocolitis Code(s): K52.9 - NONINFECTIVE GASTROENTERITIS AND COLITIS, UNSPECIFIED Status: Acute (5) Hypokalemia Code(s): E87.6 - HYPOKALEMIA Status: Acute (6) Nausea & vomiting Code(s): R11.2 - NAUSEA WITH VOMITING, UNSPECIFIED Status: Acute (7) ESRD (end stage renal disease) on dialysis Code(s): N18.6 - END STAGE RENAL DISEASE; Z99.2 - DEPENDENCE ON RENAL DIALYSIS Status: Chronic Plan: HD per Renal service - Plan continue antibiotics, PT/OT, 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
[2020-11-15] MEDS: Dextrose 5%-Lactated Ringers 1,000 ML IV SCH (15:34)
--- NOTE | 2020-11-15 15:46 | PRG ---
DATE OF SERVICE: 11/15/2020 SUBJECTIVE: Ms. Saldivar is postoperative day #4 from a diagnostic laparoscopy and lysis of abdominal adhesions. She tolerated clear liquid diet followed by a full liquid diet. She has not had a bowel movement recently. She is lying in bed as usual without complaint. OBJECTIVE: VITAL SIGNS: She is afebrile. Pulse is between 88 and 100, blood pressure 110/70. LUNGS: Clear to auscultation. ABDOMEN: Substantially more distended. There are tympanitic bowel sounds. RECTAL: Again reveals some degree of anal tenderness. She again did not tolerate the examination well, however, with mild anal dilatation, she has expression of a large volume of liquid stool and gas under pressure. Her rectal examination filled up her bed around her. At this point, I placed a rectal tube and inflated the balloon to allow continued drainage of her stool as she is simply not allowing the stool to come out. LABORATORY DATA: White blood cell count is 10, hemoglobin is 11.9. Chemistry panel was not obtained today. ASSESSMENT: The patient with an anal sphincter spasm. I suspect she has some degree of dementia and underlying medical problems that is keeping her from passing her stool leading to a bowel dilatation that is potentially what led to the problems that she presented with. Hopefully, the rectal tube that I just placed will allow continued decompression of her gastrointestinal tract. Unfortunately, I am not certain of a way to force her to have bowel movements without performing a sphincterotomy or considering giving her a permanent colostomy. I will advance her diet up to a diabetic diet and leave the rectal tube in over the weekend. Today is Wednesday. I will see her again on Wednesday. In the interim, she can stay on antibiotics, although we can probably discontinue these soon. Job ID: [id number]
[2020-11-15] MEDS: Morphine 2 MG/ML VIAL SLOW IVP PRN (19:38)
[2020-11-15] MEDS: Famotidine/PF 20 mg/2ml Vial SLOW IVP SCH (21:11)
[2020-11-16] MEDS: Acetaminophen 325 MG TAB PO PRN (01:34)
[2020-11-16 05:56] LABS: #Basophils 0.1 thou/uL (0.0-0.2); #Eosinphils 0.1 thou/uL (0.0-0.7); #Lymphocytes 3.8 thou/uL (1.20-3.40); #Monocytes 0.9 thou/uL (0.11-0.59); #Neutrophils 4.7 thou/uL (1.40-6.50); %Basophils 1.1 % (0.0-1.0); %Eosinophils 1.1 % (0.0-10.0); %Lymphocytes 39.6 % (21.0-51.0); %Monocytes 9.4 % (0.0-10.0); %Neutrophils 48.8 % (42.0-75.0); Hemoglobin 11.7 g/dL (12.0-16.0); Mean Corpuscular HGB CONC 31.4 g/dL (32.0-36.0); Mean Corpuscular Hemoglobin 30.6 pg (27.0-31.0); Mean Corpuscular Volume 97.6 fL (78.0-98.0); Mean Platelet Volume 7.7 fL (7.4-10.4); Platelet Count 168 thou/uL (130-400); RBC Distribution Width 14.6 % (11.5-14.5); Red Blood Cell (RBC) Count 3.83 mill/uL (4.20-5.40); White Blood Cell (WBC) Count 9.6 thou/uL (4.8-10.8)
[2020-11-16 06:18] LABS: Anion Gap 11 mmol/L (10-20); BUN (Urea Nitrogen) 5 mg/dL (9.8-20.1); Calc. Creatinine Clearance 24 mL/min (70-130); Calcium 6.8 mg/dL (7.8-10.44); Carbon Dioxide 26 mmol/L (23-31); Chloride 104 mmol/L (98-107); Glucose 82 mg/dL (80-115); Potassium 3.2 mmol/L (3.5-5.1); Sodium 138 mmol/L (136-145)
[2020-11-16] MEDS: Morphine 2 MG/ML VIAL SLOW IVP PRN (06:37)
[2020-11-16] MEDS: Piperacillin/Tazobactam 2.25 GM in Sodium Chloride 0.9% 100 ML IVPB SCH ×2 (08:46→20:06)
[2020-11-16] MEDS ORDERED: Potassium Chloride 20 MEQ TAB PO SCH (11:45)
[2020-11-16] MEDS: Dextrose 5%-Lactated Ringers 1,000 ML IV SCH (12:11)
--- NOTE | 2020-11-16 14:20 | PDOC.HOSPP ---
- Subjective Subjective: Patient was seen examined at bedside. Patient complaining of discomfort from rectal tube. She denies any abdominal pain. - Objective Vital Signs & Weight: Vital Signs (12 hours) Temp Pulse Resp BP Pulse Ox 11/16/20 08:00 98 11/16/20 07:46 99.7 F H 115 H 18 130/60 100 11/16/20 06:00 98.2 F 94 17 137/73 Weight Admit Weight 118 lb Weight 122 lb I&O: 11/15/20 11/16/20 11/17/20 06:59 06:59 06:59 Intake Total 1530 1700 Output Total 2200 Balance 1530 -500 Result Diagrams: 11/16/20 05:24 11/16/20 05:24 Additional Labs: Accuchecks 11/16/20 11/16/20 11/15/20 06:24 00:44 15:38 POC Glucose 78 93 112 H Hospitalist ROS - Medication Medications: Active Medications Generic Name Dose Route Start Last Admin Trade Name Freq PRN Reason Stop Dose Admin Acetaminophen 650 mg 11/09/20 19:19 11/16/20 01:34 Acetaminophen 325 Mg Tab PO 650 mg Q4H PRN Administration Headache/Fever/Mild Pain (1-3) Dextrose/Water 25 gm 11/09/20 19:35 11/12/20 06:20 Dextrose 50% Abboject 50 Ml Syringe SLOW IVP 25 gm PRN PRN Administration Hypoglycemia Famotidine 20 mg 11/10/20 21:00 11/15/20 21:11 Famotidine/Pf 20 Mg/2ml Vial SLOW IVP 20 mg 2100 JONATHAN Administration Dextrose/Water 1,000 mls @ 0 mls/hr 11/09/20 19:35 11/12/20 13:20 D5w IV 1,000 mls .Q0M PRN Administration Hypoglycemia As Directed Piperacillin Sod/Tazobactam 100 mls @ 100 mls/hr 11/09/20 20:00 11/16/20 08:46 Sod 2.25 gm/ Sodium Chloride IVPB 100 mls 0800,2000 JONATHAN Administration Dextrose/Lactated Ringer's 1,000 mls @ 50 mls/hr 11/14/20 09:10 11/16/20 12:11 D5 Lr IV 1,000 mls .Q20H JONATHAN Administration Morphine Sulfate 2 mg 11/09/20 19:19 11/16/20 06:37 Morphine 2 Mg/Ml Vial SLOW IVP 2 mg Q4H PRN Administration Pain Ondansetron HCl 4 mg 11/09/20 19:19 11/13/20 11:22 Ondansetron Odt 4 Mg Tab PO 4 mg Q6H PRN Administration Nausea/Vomiting Sodium Chloride 10 ml 11/10/20 21:00 11/16/20 08:46 Flush - Normal Saline 10 Ml Syringe IVF 10 ml Q12HR JONATHAN Administration Hospitalist Exam Vitals: Vital Signs (12 hours) Temp Pulse Resp BP Pulse Ox 11/16/20 08:00 98 11/16/20 07:46 99.7 F H 115 H 18 130/60 100 11/16/20 06:00 98.2 F 94 17 137/73 Weight Admit Weight 118 lb Weight 122 lb General Appearance: NAD Eye: PERRL ENT: normocephalic atraumatic Neck: supple Heart: RRR Respiratory: CTAB Gastrointestinal: soft Extremities: no cyanosis Skin: normal turgor Neurological: cranial nerve grossly intact Musculoskeletal: normal tone Hosp A/P - Plan (1) Pneumatosis intestinalis Code(s): K63.89 - OTHER SPECIFIED DISEASES OF INTESTINE Status: Acute Plan: Ischemic bowel noted on laparoscopy with RAVEN, continue supportive mgmt, rectal tube placed due to inability to empty rectum consistently with ileus (2) Abdominal pain Code(s): R10.9 - UNSPECIFIED ABDOMINAL PAIN Status: Acute Qualifiers: Abdominal location: lower abdomen, unspecified Qualified Code(s): R10.30 - Lower abdominal pain, unspecified (3) Acute metabolic encephalopathy Code(s): G93.41 - METABOLIC ENCEPHALOPATHY Status: Acute Plan: resolved (4) Enterocolitis Code(s): K52.9 - NONINFECTIVE GASTROENTERITIS AND COLITIS, UNSPECIFIED Status: Acute (5) Hypokalemia Code(s): E87.6 - HYPOKALEMIA Status: Acute (6) Nausea & vomiting Code(s): R11.2 - NAUSEA WITH VOMITING, UNSPECIFIED Status: Acute (7) ESRD (end stage renal disease) on dialysis Code(s): N18.6 - END STAGE RENAL DISEASE; Z99.2 - DEPENDENCE ON RENAL DIALYSIS Status: Chronic Plan: HD per Renal service - Plan Continue supportive mgmt Continue Zosyn HD per Renal service Continue D5 NS @ 50ml/h Serial abd exams Rectal tube placed 11/15/20 Replaced lytes. Follow AM labs.
[2020-11-16] MEDS: Famotidine/PF 20 mg/2ml Vial SLOW IVP SCH (20:06)
[2020-11-17] MEDS: Dextrose 5%-Lactated Ringers 1,000 ML IV SCH (06:28)
[2020-11-17] MEDS ORDERED: Piperacillin/Tazobactam 2.25 GM VIAL ONE (08:30)
[2020-11-17] MEDS: Piperacillin/Tazobactam 2.25 GM in Sodium Chloride 0.9% 100 ML IVPB SCH ×2 (08:39→20:17)
--- NOTE | 2020-11-17 11:07 | PDOC.HOSPP ---
- Subjective Subjective: labs ordered but not available to reviewed pt reports of having dysphagia, currently npo, pending speech eval no acute event overnight denies of abd pain - Objective Vital Signs & Weight: Vital Signs (12 hours) Temp Pulse Resp BP Pulse Ox 11/17/20 07:36 98.1 F 105 H 15 163/79 H 100 11/17/20 04:32 98.5 F 97 20 131/72 100 11/16/20 23:47 98.1 F 103 H 20 137/61 100 Weight Admit Weight 118 lb Weight 122 lb I&O: 11/16/20 11/17/20 11/18/20 06:59 06:59 06:59 Intake Total 1700 1815 Output Total 2200 400 Balance -500 1415 Result Diagrams: 11/16/20 05:24 11/16/20 05:24 Additional Labs: Accuchecks 11/17/20 11/16/20 04:26 19:45 POC Glucose 78 103 H Radiology Reviewed by me: Yes EKG Reviewed by me: Yes Hospitalist ROS - Medication Medications: Active Medications Generic Name Dose Route Start Last Admin Trade Name Freq PRN Reason Stop Dose Admin Acetaminophen 650 mg 11/09/20 19:19 11/16/20 01:34 Acetaminophen 325 Mg Tab PO 650 mg Q4H PRN Administration Headache/Fever/Mild Pain (1-3) Dextrose/Water 25 gm 11/09/20 19:35 11/12/20 06:20 Dextrose 50% Abboject 50 Ml Syringe SLOW IVP 25 gm PRN PRN Administration Hypoglycemia Famotidine 20 mg 11/10/20 21:00 11/16/20 20:06 Famotidine/Pf 20 Mg/2ml Vial SLOW IVP 20 mg 2100 JONATHAN Administration Dextrose/Water 1,000 mls @ 0 mls/hr 11/09/20 19:35 11/12/20 13:20 D5w IV 1,000 mls .Q0M PRN Administration Hypoglycemia As Directed Piperacillin Sod/Tazobactam 100 mls @ 100 mls/hr 11/09/20 20:00 11/17/20 08:39 Sod 2.25 gm/ Sodium Chloride IVPB 100 mls 0800,2000 JONATHAN Administration Dextrose/Lactated Ringer's 1,000 mls @ 50 mls/hr 11/14/20 09:10 11/17/20 06:28 D5 Lr IV Not Given .Q20H [facility] Morphine Sulfate 2 mg 11/09/20 19:19 11/16/20 06:37 Morphine 2 Mg/Ml Vial SLOW IVP 2 mg Q4H PRN Administration Pain Ondansetron HCl 4 mg 11/09/20 19:19 11/13/20 11:22 Ondansetron Odt 4 Mg Tab PO 4 mg Q6H PRN Administration Nausea/Vomiting Sodium Chloride 10 ml 11/10/20 21:00 11/17/20 08:40 Flush - Normal Saline 10 Ml Syringe IVF 10 ml Q12HR [facility] Administration Hospitalist Exam Vitals: Vital Signs (12 hours) Temp Pulse Resp BP Pulse Ox 11/17/20 07:36 98.1 F 105 H 15 163/79 H 100 11/17/20 04:32 98.5 F 97 20 131/72 100 11/16/20 23:47 98.1 F 103 H 20 137/61 100 Weight Admit Weight 118 lb Weight 122 lb General Appearance: NAD Eye: PERRL ENT: normocephalic atraumatic Neck: supple Heart: RRR Respiratory: CTAB Gastrointestinal: non-tender, no guarding, diminished bowl sounds Skin: normal turgor Neurological: cranial nerve grossly intact Psychiatric: normal affect Hosp A/P - Plan (1) Pneumatosis intestinalis Code(s): K63.89 - OTHER SPECIFIED DISEASES OF INTESTINE Status: Acute Plan: Ischemic bowel noted on laparoscopy with RAVEN, continue supportive mgmt, rectal tube placed due to inability to empty rectum consistently with ileus (2) Abdominal pain Code(s): R10.9 - UNSPECIFIED ABDOMINAL PAIN Status: Acute Qualifiers: Abdominal location: lower abdomen, unspecified Qualified Code(s): R10.30 - Lower abdominal pain, unspecified (3) Acute metabolic encephalopathy Code(s): G93.41 - METABOLIC ENCEPHALOPATHY Status: Acute Plan: resolved (4) Enterocolitis Code(s): K52.9 - NONINFECTIVE GASTROENTERITIS AND COLITIS, UNSPECIFIED Status: Acute (5) Hypokalemia Code(s): E87.6 - HYPOKALEMIA Status: Acute (6) Nausea & vomiting Code(s): R11.2 - NAUSEA WITH VOMITING, UNSPECIFIED Status: Acute (7) ESRD (end stage renal disease) on dialysis Code(s): N18.6 - END STAGE RENAL DISEASE; Z99.2 - DEPENDENCE ON RENAL DIALYSIS Status: Chronic Plan: HD per Renal service - Plan Continue supportive mgmt Continue Zosyn HD per Renal service Continue D5 NS @ 50ml/h Serial abd exams Rectal tube placed 11/15/20 labs pending Pt is currently NPO d/t dysphagia, pending speech eval.
[2020-11-17 11:53] LABS: #Eosinphils 0.2 thou/uL (0.0-0.7); #Lymphocytes 3.7 thou/uL (1.20-3.40); #Monocytes 0.9 thou/uL (0.11-0.59); #Neutrophils 6.5 thou/uL (1.40-6.50); %Basophils 0.4 % (0.0-1.0); %Eosinophils 1.5 % (0.0-10.0); %Lymphocytes 32.8 % (21.0-51.0); %Monocytes 8.1 % (0.0-10.0); %Neutrophils 57.3 % (42.0-75.0); Hemoglobin 11.3 g/dL (12.0-16.0); Mean Corpuscular HGB CONC 31.2 g/dL (32.0-36.0); Mean Corpuscular Hemoglobin 30.6 pg (27.0-31.0); Mean Platelet Volume 7.3 fL (7.4-10.4); Platelet Count 180 thou/uL (130-400); RBC Distribution Width 14.3 % (11.5-14.5); Red Blood Cell (RBC) Count 3.68 mill/uL (4.20-5.40); White Blood Cell (WBC) Count 11.4 thou/uL (4.8-10.8)
[2020-11-17 12:28] LABS: Anion Gap 14 mmol/L (10-20); BUN (Urea Nitrogen) 10 mg/dL (9.8-20.1); Calc. Creatinine Clearance 15 mL/min (70-130); Calcium 6.8 mg/dL (7.8-10.44); Carbon Dioxide 24 mmol/L (23-31); Chloride 104 mmol/L (98-107); Glucose 82 mg/dL (80-115); Magnesium 1.3 mg/dL (1.6-2.6); Potassium 3.6 mmol/L (3.5-5.1); Sodium 138 mmol/L (136-145)
[2020-11-17] MEDS: Acetaminophen 325 MG TAB PO PRN (19:11)
[2020-11-17] MEDS: Famotidine/PF 20 mg/2ml Vial SLOW IVP SCH (20:18)
[2020-11-18] MEDS: Dextrose 5%-Lactated Ringers 1,000 ML IV SCH ×2 (04:10→23:30)
[2020-11-18] MEDS: Acetaminophen 325 MG TAB PO PRN (04:55)
[2020-11-18 07:10] LABS: #Eosinphils 0.2 thou/uL (0.0-0.7); #Lymphocytes 2.4 thou/uL (1.20-3.40); #Monocytes 0.9 thou/uL (0.11-0.59); #Neutrophils 8.7 thou/uL (1.40-6.50); %Basophils 0.3 % (0.0-1.0); %Eosinophils 1.5 % (0.0-10.0); %Lymphocytes 19.7 % (21.0-51.0); %Monocytes 7.1 % (0.0-10.0); %Neutrophils 71.4 % (42.0-75.0); Hemoglobin 10.8 g/dL (12.0-16.0); Mean Corpuscular HGB CONC 31.6 g/dL (32.0-36.0); Mean Corpuscular Hemoglobin 31.2 pg (27.0-31.0); Mean Corpuscular Volume 98.5 fL (78.0-98.0); Mean Platelet Volume 7.2 fL (7.4-10.4); Platelet Count 184 thou/uL (130-400); RBC Distribution Width 14.4 % (11.5-14.5); Red Blood Cell (RBC) Count 3.48 mill/uL (4.20-5.40); White Blood Cell (WBC) Count 12.1 thou/uL (4.8-10.8)
[2020-11-18 07:23] LABS: Anion Gap 14 mmol/L (10-20); BUN (Urea Nitrogen) 12 mg/dL (9.8-20.1); Calc. Creatinine Clearance 12 mL/min (70-130); Calcium 6.7 mg/dL (7.8-10.44); Carbon Dioxide 21 mmol/L (23-31); Chloride 105 mmol/L (98-107); Glucose 89 mg/dL (80-115); Potassium 3.7 mmol/L (3.5-5.1); Sodium 136 mmol/L (136-145)
[2020-11-18] MEDS ORDERED: Magnesium 2 GM/50 ML 2 GM in Premix Bag 1 BAG IVPB SCH (07:30)
[2020-11-18] MEDS ORDERED: EPOETIN ALFA-EPBX (ESRD) 4,000 UNIT/ML VIAL SC SCH (08:45)
--- NOTE | 2020-11-18 08:52 | PRG ---
DATE OF SERVICE: 11/18/2020 SUBJECTIVE: Ms. Saldivar is a 59-year-old female with ESRD and followed by the Renal Service for her maintenance hemodialysis. She is currently undergoing hemodialysis today. Fluid removal as tolerated. The patient voices no new complaints. Her abdominal pain is actually better. Her p.o. intake is still decreased. No complaints of chest pain or shortness of breath. OBJECTIVE: VITAL SIGNS: Blood pressure 126/64, heart rate 93, respiratory rate 18, temperature 97.7, O2 saturation 100% on room air. GENERAL: Awake, supine, comfortable, not in overt distress. SKIN: Adequate turgor. HEENT: She has pinkish conjunctivae, anicteric sclerae. NECK: No neck mass. No carotid bruits. No JVD. CHEST: No deformities. LUNGS: Clear breath sounds. HEART: Normal sinus rhythm. No murmur. No gallops. No rubs. ABDOMEN: Globular, soft, nontender. No masses. EXTREMITIES: Bilateral leg amputation. MEDICATIONS: Medications of November 18, 2020, was reviewed. LABORATORY DATA: Laboratories of November 18, 2020; white count 12.1, hemoglobin 10.8. Sodium 136, potassium 3.7, chloride 105, carbon dioxide 21, BUN is 12, creatinine 4.2, calcium is 6.7. ASSESSMENT AND PLAN: 1. End-stage renal disease, stable. We will continue current hemodialysis regimen. Fluid removal only as tolerated. 2. Anemia. We will initiate Epogen 7500 units subcu every week. 3. Abdominal pain - Patient is status post diagnostic laparoscopy. Continue supportive care. She seems to be tolerating some degree of p.o. intake. Holding TPN. 4. We will recheck CBC, basic metabolic in a.m. Job ID: [id number]
[2020-11-18] MEDS: Piperacillin/Tazobactam 2.25 GM in Sodium Chloride 0.9% 100 ML IVPB SCH ×2 (13:00→20:48)
--- NOTE | 2020-11-18 14:05 | PRG ---
DATE OF SERVICE: 11/18/2020 SUBJECTIVE: Ms. Saldivar is resting in her bed. She has no complaints. She tells me in general she is doing well. She is currently asking for help with eating. Apparently, she is blind and has trouble feeding herself. She denies any pain. She still has a rectal tube in place that I placed on Wednesday. The volume of liquid stool coming out has varied between 150 and 400 mL per day. PHYSICAL EXAMINATION: VITAL SIGNS: She is afebrile. Pulse is 93 to 101, blood pressure is 115/67. LUNGS: Clear to auscultation. ABDOMEN: Soft. Bowel sounds are hypoactive. There is no focal tenderness in any quadrant. LABORATORY DATA: Her white blood cell count is trending upwards with a white blood cell count of 12.1 today and hemoglobin of 10.8, platelet count is 184. She has a mild left shift. Her chemistries reveal essentially normal electrolytes. ASSESSMENT: She has remained stable from a surgical standpoint. I will obtain a KUB today to see to what extent her bowel loops are decompressed with having had the rectal tube in place for the past 3 days. I would anticipate removing the rectal tube thereafter. It seems that she can eat and drink and urinate. As soon as we know that she can have bowel movements, then she can probably look toward being discharged. If she continues to withhold her stool leading to bowel dilatation and potentially bowel compromise, then she may need either a surgical sphincterotomy or a colostomy to keep her from developing abdominal distention. Job ID: [id number]
--- NOTE | 2020-11-18 14:36 | RAD ---
KUB: 11/18/2020 COMPARISON: 11/13/2020 HISTORY: Evaluate bowel distention FINDINGS: Supine KUB provided, limiting assessment for free intraperitoneal air. There is gaseous dis tention of bowel within the abdomen/pelvis, slightly less conspicuous than on the 11/13/2020 exam. Clips in the right upper quadrant suggest prior cholecystectomy. The distended bowel appears to primarily represent colon but there are distended loops of small bowel , especially within the mid left abdomen. IMPRESSION: Persistent gaseous distention of bowel,
--- NOTE | 2020-11-18 16:48 | PDOC.HOSPP ---
- Subjective Subjective: Patient was seen examined at bedside. She still had her rectal tube in place. Abdominal x-ray, continue to show persistent gaseous distention of her bowel. Surgery is following. Patient is not eating much per nursing staff. She just recently came back from dialysis unit. Electrolytes has been repleted. - Objective Vital Signs & Weight: Vital Signs (12 hours) Temp Pulse Resp BP Pulse Ox 11/18/20 13:15 98.0 F 98 20 115/67 100 11/18/20 08:00 97.7 F 93 18 126/64 100 11/18/20 05:00 98.5 F 101 H 18 156/79 H 100 Weight Admit Weight 118 lb Weight 122 lb I&O: 11/17/20 11/18/20 11/19/20 06:59 06:59 06:59 Intake Total 1815 2250 Output Total 400 150 Balance 1415 2100 Result Diagrams: 11/18/20 06:53 11/18/20 06:53 Additional Labs: Accuchecks 11/18/20 11/18/20 11/18/20 16:00 13:44 05:57 POC Glucose 90 95 76 11/18/20 11/17/20 11/16/20 04:27 19:45 16:32 POC Glucose 62 L 91 102 H 11/16/20 12:18 POC Glucose 97 Hospitalist ROS - Medication Medications: Active Medications Generic Name Dose Route Start Last Admin Trade Name Freq PRN Reason Stop Dose Admin Acetaminophen 650 mg 11/09/20 19:19 11/18/20 04:55 Acetaminophen 325 Mg Tab PO 650 mg Q4H PRN Administration Headache/Fever/Mild Pain (1-3) Dextrose/Water 25 gm 11/09/20 19:35 11/12/20 06:20 Dextrose 50% Abboject 50 Ml Syringe SLOW IVP 25 gm PRN PRN Administration Hypoglycemia Epoetin Marcelo-epbx 7,500 unit 11/18/20 08:45 11/18/20 09:48 Epoetin Marcelo-Epbx (Esrd) 4,000 Unit/Ml Vial SC 7,500 unit Q7D JONATHAN Administration Famotidine 20 mg 11/10/20 21:00 11/17/20 20:18 Famotidine/Pf 20 Mg/2ml Vial SLOW IVP 20 mg 2100 JONATHAN Administration Dextrose/Water 1,000 mls @ 0 mls/hr 11/09/20 19:35 11/12/20 13:20 D5w IV 1,000 mls .Q0M PRN Administration Hypoglycemia As Directed Piperacillin Sod/Tazobactam 100 mls @ 100 mls/hr 11/09/20 20:00 11/18/20 13:00 Sod 2.25 gm/ Sodium Chloride IVPB 100 mls 0800,2000 JONATHAN Administration Dextrose/Lactated Ringer's 1,000 mls @ 50 mls/hr 11/14/20 09:10 11/18/20 04:10 D5 Lr IV Not Given .Q20H JONATHAN Morphine Sulfate 2 mg 11/09/20 19:19 11/16/20 06:37 Morphine 2 Mg/Ml Vial SLOW IVP 2 mg Q4H PRN Administration Pain Ondansetron HCl 4 mg 11/09/20 19:19 11/13/20 11:22 Ondansetron Odt 4 Mg Tab PO 4 mg Q6H PRN Administration Nausea/Vomiting Sodium Chloride 10 ml 11/10/20 21:00 11/18/20 09:11 Flush - Normal Saline 10 Ml Syringe IVF Not Given Q12HR [facility] Hospitalist Exam Vitals: Vital Signs (12 hours) Temp Pulse Resp BP Pulse Ox 11/18/20 13:15 98.0 F 98 20 115/67 100 11/18/20 08:00 97.7 F 93 18 126/64 100 11/18/20 05:00 98.5 F 101 H 18 156/79 H 100 Weight Admit Weight 118 lb Weight 122 lb General Appearance: NAD Eye: PERRL ENT: normocephalic atraumatic Neck: supple Heart: RRR Respiratory: CTAB Gastrointestinal: soft, non-tender, distended, diminished bowl sounds Extremities: no cyanosis Skin: normal turgor Neurological: cranial nerve grossly intact Musculoskeletal: normal tone Psychiatric: normal affect, normal behavior, A&O x 3 Hosp A/P - Plan (1) Pneumatosis intestinalis Code(s): K63.89 - OTHER SPECIFIED DISEASES OF INTESTINE Status: Acute Plan: Ischemic bowel noted on laparoscopy with RAVEN, continue supportive mgmt, rectal tube placed due to inability to empty rectum consistently with ileus (2) Abdominal pain Code(s): R10.9 - UNSPECIFIED ABDOMINAL PAIN Status: Acute Qualifiers: Abdominal location: lower abdomen, unspecified Qualified Code(s): R10.30 - Lower abdominal pain, unspecified (3) Acute metabolic encephalopathy Code(s): G93.41 - METABOLIC ENCEPHALOPATHY Status: Acute Plan: resolved (4) Enterocolitis Code(s): K52.9 - NONINFECTIVE GASTROENTERITIS AND COLITIS, UNSPECIFIED Status: Acute (5) Hypokalemia Code(s): E87.6 - HYPOKALEMIA Status: Acute (6) Nausea & vomiting Code(s): R11.2 - NAUSEA WITH VOMITING, UNSPECIFIED Status: Acute (7) ESRD (end stage renal disease) on dialysis Code(s): N18.6 - END STAGE RENAL DISEASE; Z99.2 - DEPENDENCE ON RENAL DIALYSIS Status: Chronic Plan: HD per Renal service - Plan No significant changes. poor PO intake KUB reviewed, surgery is following repleting mitch Nephrology is following and assisting with HD cont supportive cares. AM labs
[2020-11-18] MEDS: Aluminum & Magnesium Hydroxide 60 ML, diphenhydrAMINE 150 MG, Lidocaine 2% Viscous Solu... SSW SCH ×2 (17:00→20:50)
[2020-11-18] MEDS: Famotidine/PF 20 mg/2ml Vial SLOW IVP SCH (20:51)
[2020-11-19 05:44] LABS: #Basophils 0.1 thou/uL (0.0-0.2); #Eosinphils 0.1 thou/uL (0.0-0.7); #Lymphocytes 3.5 thou/uL (1.20-3.40); #Monocytes 0.9 thou/uL (0.11-0.59); #Neutrophils 8.8 thou/uL (1.40-6.50); %Basophils 0.7 % (0.0-1.0); %Eosinophils 0.8 % (0.0-10.0); %Lymphocytes 25.9 % (21.0-51.0); %Monocytes 6.8 % (0.0-10.0); %Neutrophils 65.8 % (42.0-75.0); Hemoglobin 10.9 g/dL (12.0-16.0); Mean Corpuscular HGB CONC 32.2 g/dL (32.0-36.0); Mean Corpuscular Volume 99.3 fL (78.0-98.0); Mean Platelet Volume 7.4 fL (7.4-10.4); Platelet Count 204 thou/uL (130-400); RBC Distribution Width 14.3 % (11.5-14.5); Red Blood Cell (RBC) Count 3.42 mill/uL (4.20-5.40); White Blood Cell (WBC) Count 13.4 thou/uL (4.8-10.8)
[2020-11-19 06:11] LABS: Anion Gap 13 mmol/L (10-20); BUN (Urea Nitrogen) 6 mg/dL (9.8-20.1); Calc. Creatinine Clearance 19 mL/min (70-130); Calcium 7.2 mg/dL (7.8-10.44); Carbon Dioxide 24 mmol/L (23-31); Chloride 104 mmol/L (98-107); Glucose 93 mg/dL (80-115); Potassium 3.2 mmol/L (3.5-5.1); Sodium 138 mmol/L (136-145)
[2020-11-19] MEDS: Aluminum & Magnesium Hydroxide 60 ML, diphenhydrAMINE 150 MG, Lidocaine 2% Viscous Solu... SSW SCH ×5 (08:34→22:34)
[2020-11-19] MEDS: Piperacillin/Tazobactam 2.25 GM in Sodium Chloride 0.9% 100 ML IVPB SCH (08:35)
[2020-11-19] MEDS ORDERED: Potassium Chloride 20 MEQ TAB PO SCH (10:00)
--- NOTE | 2020-11-19 10:12 | PRG ---
DATE OF SERVICE: 11/19/2020 SUBJECTIVE: Ms. Saldivar is resting in her bed on the medical floor. She is in good spirits when I arrive today. She has had her rectal tube in place for 4 days now. She is postoperative day #7 from diagnostic laparoscopy. Rectal tube was placed secondary to anal sphincter spasm and retention of colon contents. Even with a rectal tubing draining her distal GI tract, her exertion yesterday showed persistent dilated loops of bowel. She denies any abdominal pain. She tells me she is eating well. OBJECTIVE: VITAL SIGNS: She is afebrile. Her vital signs are essentially normal. LUNGS: Clear. ABDOMEN: Distended as usual. Bowel sounds are present. There is no definite tympanitic bowel sounds today. RECTAL: I removed her rectal tube after deflating the balloon. She had been passing liquid stool per rectal tube over the past few days. When I remove this, I again inspected her anus. She seems to have discomfort. She may have a fissure at that level. She does not, however, have a distended rectum with any large volume of liquid or gaseous contents (as she had before), indicating that the tube was draining in this area appropriately. LABORATORY DATA: Her electrolytes are unremarkable. She has mildly low potassium. She of course remains on dialysis. Her CBC shows a white count is trending upwards and is 13 today. Hemoglobin is stable. She does not have a left shift. ASSESSMENT AND PLAN: She is stable at this time. She is taking a solid diet. I am not certain why white blood cell count is going up, but I do not believe that there is any value in further antibiotics at this point, which she has been on for over a week. I therefore discontinued her Zosyn. Hopefully, with the rectal tube out, she will be able to resume a normal bowel function. I think that most of her problems were caused by stool retention secondary to anal sphincter spasm. As mentioned previously, we would need to consider either a full sphincterotomy or a colostomy placement if she has recurrent problems with sphincter spasm and not passing her digestive material. I will continue to follow. For now, she can eat and drink whatever she is comfortable with. Job ID: [id number]
[2020-11-19] MEDS ORDERED: Permethrin 5% Cream 60 GM TUBE TOP SCH (12:00)
[2020-11-19] MEDS: Metoclopramide HCl 10 MG TAB PO SCH ×3 (13:06→22:30)
--- NOTE | 2020-11-19 14:55 | PDOC.HOSPP ---
- Subjective Subjective: Patient was seen at the bedside. She only had juice overnight. In the morning, she was able to eat half of her breakfast which is an improvement from yesterday. Rectal output was 400 mL at 7:30. - Objective Vital Signs & Weight: Vital Signs (12 hours) Temp Pulse Resp BP BP Pulse Ox 11/19/20 11:58 98.2 F 95 20 121/76 99 11/19/20 08:00 98.5 F 93 20 114/62 100 11/19/20 04:49 98.2 F 92 16 114/63 100 Weight Admit Weight 53.524 kg Weight 57.5 kg I&O: 11/18/20 11/19/20 11/20/20 06:59 06:59 06:59 Intake Total 2250 1800 Output Total 150 550 Balance 2100 1250 Result Diagrams: 11/19/20 05:27 11/19/20 05:27 Additional Labs: Accuchecks 11/19/20 11/19/20 11/19/20 11:17 04:36 02:07 POC Glucose 113 H 99 72 11/18/20 11/18/20 11/18/20 19:34 16:00 12:14 POC Glucose 84 90 58 L* Hospitalist ROS - Review of Systems Constitutional: denies: fever ENT: denies: throat pain Gastrointestinal: denies: abdominal pain, melena, hematochezia - Medication Medications: Active Medications Generic Name Dose Route Start Last Admin Trade Name Freq PRN Reason Stop Dose Admin Acetaminophen 650 mg 11/09/20 19:19 11/18/20 04:55 Acetaminophen 325 Mg Tab PO 650 mg Q4H PRN Administration Headache/Fever/Mild Pain (1-3) Al Hydroxide/Mg Hydroxide 60 0 ml 11/18/20 17:00 11/19/20 13:06 ml/ Diphenhydramine HCl 150 mg SSW 10 ml / Lidocaine HCl 60 ml/ ACHS JONATHAN Administration Nystatin 6,000,000 units Dextrose/Water 25 gm 11/09/20 19:35 11/12/20 06:20 Dextrose 50% Abboject 50 Ml Syringe SLOW IVP 25 gm PRN PRN Administration Hypoglycemia Epoetin Marcelo-epbx 7,500 unit 11/18/20 08:45 11/18/20 09:48 Epoetin Marcelo-Epbx (Esrd) 4,000 Unit/Ml Vial SC 7,500 unit Q7D JONATHAN Administration Famotidine 20 mg 11/10/20 21:00 11/18/20 20:51 Famotidine/Pf 20 Mg/2ml Vial SLOW IVP 20 mg 2100 JONATHAN Administration Dextrose/Water 1,000 mls @ 0 mls/hr 11/09/20 19:35 11/12/20 13:20 D5w IV 1,000 mls .Q0M PRN Administration Hypoglycemia As Directed Dextrose/Lactated Ringer's 1,000 mls @ 50 mls/hr 11/14/20 09:10 11/18/20 23:30 D5 Lr IV 1,000 mls .Q20H JONATHAN Administration Metoclopramide HCl 10 mg 11/19/20 11:30 11/19/20 13:06 Metoclopramide Hcl 10 Mg Tab PO 10 mg ACHS JONATHAN Administration Morphine Sulfate 2 mg 11/09/20 19:19 11/16/20 06:37 Morphine 2 Mg/Ml Vial SLOW IVP 2 mg Q4H PRN Administration Pain Ondansetron HCl 4 mg 11/09/20 19:19 11/13/20 11:22 Ondansetron Odt 4 Mg Tab PO 4 mg Q6H PRN Administration Nausea/Vomiting Sodium Chloride 10 ml 11/10/20 21:00 11/19/20 08:38 Flush - Normal Saline 10 Ml Syringe IVF 10 ml Q12HR JONATHAN Administration Hospitalist Exam Vitals: Vital Signs (12 hours) Temp Pulse Resp BP BP Pulse Ox 11/19/20 11:58 98.2 F 95 20 121/76 99 11/19/20 08:00 98.5 F 93 20 114/62 100 11/19/20 04:49 98.2 F 92 16 114/63 100 Weight Admit Weight 53.524 kg Weight 57.5 kg General Appearance: awake alert ENT: normocephalic atraumatic Heart: RRR, no murmur, no gallops, no rubs Respiratory: no wheezes, no rales, no ronchi, normal chest expansion Gastrointestinal: soft, non-tender, non-distended, no rigidity, diminished bowl sounds Hosp A/P (1) Pneumatosis intestinalis Code(s): K63.89 - OTHER SPECIFIED DISEASES OF INTESTINE Status: Acute Plan: Rectal tube is still in patient. Rectal tube can be removed after being evaluated by general surgeon. (2) Hypokalemia Code(s): E87.6 - HYPOKALEMIA Status: Acute Plan: Potassium will be replenished with Potassium Chloride 20 mEq PO today before eating lunch. (3) Abdominal pain Code(s): R10.9 - UNSPECIFIED ABDOMINAL PAIN Status: Acute Qualifiers: Abdominal location: lower abdomen, unspecified Qualified Code(s): R10.30 - Lower abdominal pain, unspecified Plan: Denies any more abdominal pain. Continue Metoclopramide as prescribed. (4) Nausea & vomiting Code(s): R11.2 - NAUSEA WITH VOMITING, UNSPECIFIED Status: Acute Plan: Continue Odansetron HCl as prescribed - Plan Continue all active medications. *Please note: this is for educational purpose only. Please refer to my separate progress notes.
--- NOTE | 2020-11-19 16:45 | PDOC.HOSPP ---
- Subjective Subjective: Seen examined at bedside. Patient is doing better today. She actually ate 50% of her breakfast this morning. Her rectal tube is in place, plan to remove it later today once evaluated by surgery. Electrolytes has been repleted. - Objective Vital Signs & Weight: Vital Signs (12 hours) Temp Pulse Resp BP BP Pulse Ox 11/19/20 12:00 98.2 F 95 11/19/20 11:58 98.2 F 95 20 121/76 99 11/19/20 08:00 98.5 F 93 20 114/62 100 11/19/20 04:49 98.2 F 92 16 114/63 100 Weight Admit Weight 118 lb Weight 126 lb 12.253 oz I&O: 11/18/20 11/19/20 11/20/20 06:59 06:59 06:59 Intake Total 2250 1800 800 Output Total 150 550 Balance 2100 1250 800 Result Diagrams: 11/19/20 05:27 11/19/20 05:27 Additional Labs: Accuchecks 11/19/20 11/19/20 11/19/20 11:17 04:36 02:07 POC Glucose 113 H 99 72 11/18/20 11/18/20 19:34 12:14 POC Glucose 84 58 L* Radiology Reviewed by me: Yes EKG Reviewed by me: Yes Hospitalist ROS - Medication Medications: Active Medications Generic Name Dose Route Start Last Admin Trade Name Freq PRN Reason Stop Dose Admin Acetaminophen 650 mg 11/09/20 19:19 11/18/20 04:55 Acetaminophen 325 Mg Tab PO 650 mg Q4H PRN Administration Headache/Fever/Mild Pain (1-3) Al Hydroxide/Mg Hydroxide 60 0 ml 11/18/20 17:00 11/19/20 13:06 ml/ Diphenhydramine HCl 150 mg SSW 10 ml / Lidocaine HCl 60 ml/ ACHS JONATHAN Administration Nystatin 6,000,000 units Dextrose/Water 25 gm 11/09/20 19:35 11/12/20 06:20 Dextrose 50% Abboject 50 Ml Syringe SLOW IVP 25 gm PRN PRN Administration Hypoglycemia Epoetin Marcelo-epbx 7,500 unit 11/18/20 08:45 11/18/20 09:48 Epoetin Marcelo-Epbx (Esrd) 4,000 Unit/Ml Vial SC 7,500 unit Q7D JNOATHAN Administration Famotidine 20 mg 11/10/20 21:00 11/18/20 20:51 Famotidine/Pf 20 Mg/2ml Vial SLOW IVP 20 mg 2100 JONATHAN Administration Dextrose/Water 1,000 mls @ 0 mls/hr 11/09/20 19:35 11/12/20 13:20 D5w IV 1,000 mls .Q0M PRN Administration Hypoglycemia As Directed Dextrose/Lactated Ringer's 1,000 mls @ 50 mls/hr 11/14/20 09:10 11/18/20 23:30 D5 Lr IV 1,000 mls .Q20H JONATHAN Administration Metoclopramide HCl 10 mg 11/19/20 11:30 11/19/20 13:06 Metoclopramide Hcl 10 Mg Tab PO 10 mg ACHS JONATHAN Administration Morphine Sulfate 2 mg 11/09/20 19:19 11/16/20 06:37 Morphine 2 Mg/Ml Vial SLOW IVP 2 mg Q4H PRN Administration Pain Ondansetron HCl 4 mg 11/09/20 19:19 11/13/20 11:22 Ondansetron Odt 4 Mg Tab PO 4 mg Q6H PRN Administration Nausea/Vomiting Sodium Chloride 10 ml 11/10/20 21:00 11/19/20 08:38 Flush - Normal Saline 10 Ml Syringe IVF 10 ml Q12HR JONATHAN Administration Hospitalist Exam Vitals: Vital Signs (12 hours) Temp Pulse Resp BP BP Pulse Ox 11/19/20 12:00 98.2 F 95 11/19/20 11:58 98.2 F 95 20 121/76 99 11/19/20 08:00 98.5 F 93 20 114/62 100 11/19/20 04:49 98.2 F 92 16 114/63 100 Weight Admit Weight 118 lb Weight 126 lb 12.253 oz General Appearance: NAD Eye: PERRL ENT: normocephalic atraumatic Neck: supple Heart: RRR Respiratory: CTAB Gastrointestinal: soft, diminished bowl sounds Extremities: no cyanosis Extremities - other findings: b/l amputee Skin: normal turgor Neurological: cranial nerve grossly intact Musculoskeletal: normal tone Psychiatric: normal affect, normal behavior, A&O x 3 Hosp A/P - Plan (1) Pneumatosis intestinalis Code(s): K63.89 - OTHER SPECIFIED DISEASES OF INTESTINE Status: Acute Plan: Ischemic bowel noted on laparoscopy with RAVEN, continue supportive mgmt, rectal tube placed due to inability to empty rectum consistently with ileus (2) Abdominal pain Code(s): R10.9 - UNSPECIFIED ABDOMINAL PAIN Status: Acute Qualifiers: Abdominal location: lower abdomen, unspecified Qualified Code(s): R10.30 - Lower abdominal pain, unspecified (3) Acute metabolic encephalopathy Code(s): G93.41 - METABOLIC ENCEPHALOPATHY Status: Acute Plan: resolved (4) Enterocolitis Code(s): K52.9 - NONINFECTIVE GASTROENTERITIS AND COLITIS, UNSPECIFIED Status: Acute (5) Hypokalemia Code(s): E87.6 - HYPOKALEMIA Status: Acute (6) Nausea & vomiting Code(s): R11.2 - NAUSEA WITH VOMITING, UNSPECIFIED Status: Acute (7) ESRD (end stage renal disease) on dialysis Code(s): N18.6 - END STAGE RENAL DISEASE; Z99.2 - DEPENDENCE ON RENAL DIALYSIS Status: Chronic Plan: HD per Renal service - Plan PO intake improved, she ate about 50% of her meal Rectal tube plan to d/c today per surgery Lyte replaced. continue supportive cares. PO/OT eval
[2020-11-19] MEDS: Dextrose 5%-Lactated Ringers 1,000 ML IV SCH (18:24)
[2020-11-19] MEDS: Famotidine/PF 20 mg/2ml Vial SLOW IVP SCH (22:31)
[2020-11-20] MEDS ORDERED: Lice Shampoo 120 ML BOT TOP SCH (00:15)
[2020-11-20] MEDS ORDERED: Potassium Chloride 20 MEQ TAB PO SCH (08:00)
[2020-11-20] MEDS: Metoclopramide HCl 10 MG TAB PO SCH ×4 (08:16→20:42)
[2020-11-20] MEDS: Aluminum & Magnesium Hydroxide 60 ML, diphenhydrAMINE 150 MG, Lidocaine 2% Viscous Solu... SSW SCH ×4 (08:17→21:53)
[2020-11-20] MEDS: Potassium Chloride 20 MEQ TAB PO SCH (08:17)
--- NOTE | 2020-11-20 10:05 | PRG ---
DATE OF SERVICE: 11/20/2020 SUBJECTIVE: Ms. Saldivar is a 59-year-old female with ESRD. We are following up for maintenance hemodialysis. She is tolerating current dialysis regimen. Please note, she came in with abdominal pain and underwent a diagnostic laparoscopy. Her p.o. intake is much improved and she is able to take solid food. In addition, as per note by Surgery if she might need a full sphincterectomy or colostomy if she has recurrent problems with sphincter spasm and not able to pass her food. No complaints of chest pain or shortness of breath. She is tolerating p.o. 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 OBJECTIVE: VITAL SIGNS: Blood pressure 146/76, heart rate 94, respiratory rate 20, temperature 98, O2 saturation is 99%. GENERAL: The patient is awake, alert, comfortable, not in overt distress. SKIN: Adequate turgor. HEENT: She has pinkish conjunctivae. Anicteric sclerae. NECK: No neck mass. No carotid bruits. No JVD. CHEST: No deformities. LUNGS: Clear breath sounds. HEART: Normal sinus rhythm. No murmur. No gallops. No rubs. ABDOMEN: Globular, soft, nontender. No masses. EXTREMITIES: No edema. No deformities. MEDICATIONS: Medications of November 20, 2020, were reviewed. LABORATORY DATA: Laboratories of November 19, 2020; white count 13.4, hemoglobin 10.9. Sodium 138, potassium 3.2, chloride 104, carbon dioxide 24, BUN 6, creatinine 2.68, glucose 93, calcium 7.2, magnesium 2.0. ASSESSMENT AND PLAN: 1. End-stage renal disease. We will continue Wednesday, Wednesday, and Wednesday hemodialysis regimen. Fluid removal only as tolerated by the patient. 2. Mild hypokalemia. Adjust potassium bath in the dialysis - we will change to 4.0 potassium bath. Anemia, continuing weekly Epogen. 3. Abdominal pain, resolved, status post diagnostic laparoscopy. 4. C. diff - currently on isolation. Job ID: [id number] [facility]
[2020-11-20 13:52] VITALS: BMI 26.4
[2020-11-20] MEDS: Dextrose 5%-Lactated Ringers 1,000 ML IV SCH (14:36)
--- NOTE | 2020-11-20 14:43 | PRG ---
DATE OF SERVICE: 11/20/2020 SUBJECTIVE: Ms. Saldivar remains in her bed on the medical floor. She is in good spirits and smiling this morning. She tells me she is tolerating her diet well. She also notes that she has had a few bowel movements since I removed her rectal tube yesterday. She denies any abdominal pain, nausea, or vomiting. PHYSICAL EXAMINATION: VITAL SIGNS: She is afebrile. Pulse 94, blood pressure 146/76. LUNGS: Clear to auscultation. ABDOMEN: Soft, nontender, nondistended with normoactive bowel sounds. There is no tympany that is appreciated. LABORATORY DATA: CBC was not obtained today. Blood sugars are reasonably well controlled. ASSESSMENT: The patient appears to be stable following removal of her rectal tube. She previously underwent laparoscopy to rule out gangrenous bowel. No bowel was resected at that time. From a surgical standpoint, she currently appears to be stable. She has an entirely benign abdomen and is tolerating her diet and having bowel movements. From my standpoint, she is cleared for discharge at any time. I have already discontinued her antibiotics. Hopefully, the sphincter dilatation I performed will allow her to continue to have bowel movements that will avoid the colonic distention that she had when she presented. Job ID: [id number]
--- NOTE | 2020-11-20 17:03 | PDOC.HOSPP ---
- Subjective Subjective: Examined at bedside. She had a rectal tube yesterday, so far tolerated well. No other acute events overnight. Her p.o. intake appears to be improving. Surgery recommended potentially discharge home as she is now tolerating her diet and abdominal pain has resolved. However, if her abdominal pain recur, she might need a full sphincterotomy or colostomy if she had recurrent problem with splinters spasm and not able to pass stool. - Objective Vital Signs & Weight: Vital Signs (12 hours) Temp Pulse Resp BP BP Pulse Ox 11/20/20 09:50 111/69 11/20/20 08:00 98.0 F 94 20 146/76 H 99 Weight Admit Weight 118 lb Weight 126 lb 12.253 oz I&O: 11/19/20 11/20/20 11/21/20 06:59 06:59 06:59 Intake Total 1800 1930 480 Output Total 550 302 Balance 1250 1628 480 Result Diagrams: 11/19/20 05:27 11/19/20 05:27 Additional Labs: Accuchecks 11/20/20 11/20/20 11/19/20 10:56 04:38 19:43 POC Glucose 119 H 79 135 H Radiology Reviewed by me: Yes EKG Reviewed by me: Yes Hospitalist ROS - Medication Medications: Active Medications Generic Name Dose Route Start Last Admin Trade Name Freq PRN Reason Stop Dose Admin Acetaminophen 650 mg 11/09/20 19:19 11/18/20 04:55 Acetaminophen 325 Mg Tab PO 650 mg Q4H PRN Administration Headache/Fever/Mild Pain (1-3) Al Hydroxide/Mg Hydroxide 60 0 ml 11/18/20 17:00 11/20/20 16:45 ml/ Diphenhydramine HCl 150 mg SSW 10 ml / Lidocaine HCl 60 ml/ ACHS JONATHAN Administration Nystatin 6,000,000 units Dextrose/Water 25 gm 11/09/20 19:35 11/12/20 06:20 Dextrose 50% Abboject 50 Ml Syringe SLOW IVP 25 gm PRN PRN Administration Hypoglycemia Epoetin Marcelo-epbx 7,500 unit 11/18/20 08:45 11/18/20 09:48 Epoetin Marcelo-Epbx (Esrd) 4,000 Unit/Ml Vial SC 7,500 unit Q7D JONATHAN Administration Famotidine 20 mg 11/10/20 21:00 11/19/20 22:31 Famotidine/Pf 20 Mg/2ml Vial SLOW IVP 20 mg 2100 JONATHAN Administration Dextrose/Water 1,000 mls @ 0 mls/hr 11/09/20 19:35 11/12/20 13:20 D5w IV 1,000 mls .Q0M PRN Administration Hypoglycemia As Directed Dextrose/Lactated Ringer's 1,000 mls @ 50 mls/hr 11/14/20 09:10 11/20/20 14:36 D5 Lr IV 1,000 mls .Q20H JONATHAN Administration Metoclopramide HCl 10 mg 11/19/20 11:30 11/20/20 16:42 Metoclopramide Hcl 10 Mg Tab PO 10 mg ACHS JONATHAN Administration Ondansetron HCl 4 mg 11/09/20 19:19 11/13/20 11:22 Ondansetron Odt 4 Mg Tab PO 4 mg Q6H PRN Administration Nausea/Vomiting Potassium Chloride 20 meq 11/20/20 08:00 11/20/20 08:17 Potassium Chloride 20 Meq Tab PO 20 meq QAM-WM JONATHAN Administration Sodium Chloride 10 ml 11/10/20 21:00 11/20/20 08:17 Flush - Normal Saline 10 Ml Syringe IVF 10 ml Q12HR JONATHAN Administration Hospitalist Exam Vitals: Vital Signs (12 hours) Temp Pulse Resp BP BP Pulse Ox 11/20/20 09:50 111/69 11/20/20 08:00 98.0 F 94 20 146/76 H 99 Weight Admit Weight 118 lb Weight 126 lb 12.253 oz General Appearance: NAD Eye: PERRL ENT: normocephalic atraumatic Neck: supple Heart: RRR Respiratory: CTAB, no wheezes Gastrointestinal: soft Extremities: no cyanosis Skin: normal turgor Hosp A/P - Plan (1) Pneumatosis intestinalis Code(s): K63.89 - OTHER SPECIFIED DISEASES OF INTESTINE Status: Acute Plan: Ischemic bowel noted on laparoscopy with RAVEN, continue supportive mgmt, rectal tube placed due to inability to empty rectum consistently with ileus (2) Abdominal pain Code(s): R10.9 - UNSPECIFIED ABDOMINAL PAIN Status: Acute Qualifiers: Abdominal location: lower abdomen, unspecified Qualified Code(s): R10.30 - Lower abdominal pain, unspecified (3) Acute metabolic encephalopathy Code(s): G93.41 - METABOLIC ENCEPHALOPATHY Status: Acute Plan: resolved (4) Enterocolitis Code(s): K52.9 - NONINFECTIVE GASTROENTERITIS AND COLITIS, UNSPECIFIED Status: Acute (5) Hypokalemia Code(s): E87.6 - HYPOKALEMIA Status: Acute (6) Nausea & vomiting Code(s): R11.2 - NAUSEA WITH VOMITING, UNSPECIFIED Status: Acute (7) ESRD (end stage renal disease) on dialysis Code(s): N18.6 - END STAGE RENAL DISEASE; Z99.2 - DEPENDENCE ON RENAL DIALYSIS Status: Chronic Plan: HD per Renal service - Plan She is tolerating PO intake, denies of abd pain. Nephrology plan for dialysis today. Plan for d/c home with HH in AM if she continues to improve. She might needs a full sphincterotomy, and colostomy in the future if her problem recurs
[2020-11-20] MEDS: Famotidine/PF 20 mg/2ml Vial SLOW IVP SCH (20:42)
[2020-11-21 08:03] LABS: Anion Gap 12 mmol/L (10-20); BUN (Urea Nitrogen) 8 mg/dL (9.8-20.1); Calc. Creatinine Clearance 22 mL/min (70-130); Carbon Dioxide 28 mmol/L (23-31); Chloride 100 mmol/L (98-107); Glucose 135 mg/dL (80-115); Potassium 3.2 mmol/L (3.5-5.1); Sodium 137 mmol/L (136-145)
[2020-11-21] MEDS: Potassium Chloride 20 MEQ TAB PO SCH (08:15)
[2020-11-21] MEDS: Metoclopramide HCl 10 MG TAB PO SCH ×2 (08:15→11:04)
[2020-11-21] MEDS: Dextrose 5%-Lactated Ringers 1,000 ML IV SCH (08:26)
--- NOTE | 2020-11-21 09:25 | PDOC.DS.DS ---
Provider Date of Admission: 11/09/20 19:19 Date of Discharge: 11/21/20 Admitting Provider: Josh Newman Consultations: General Surgery, Nephrology Primary Care Physician: Unknown Course Hospital Course: The patient is unfortunate 59 years old female who has multiple comorbidities including diabetes with multiple complications including ESRD on dialysis, Wednesday and Wednesday, bilateral amputee, who initially presented to ED with complaint of abdominal pain. Patient undergone a diagnostic laparoscopy, without bowel resection. Patient tolerated procedure well. Postoperatively, patient had problem with anal sphincter spasm, and unable to move her bowel completely. For that reason, she had a rectal tube placed. Subsequently discontinued as patient tolerated well and able to void without problem. She is tolerating diet. Surgery has signed off, and cleared to discharge home. However, if her symptoms of abdominal pain recurred due to anal sphincter spasm and unable to pass stool. She will need a full sphincterotomy and colostomy. At this time, patient stable to discharge home. Patient to follow-up with her PCP. Follow-up with Dr. Monk for ongoing dialysis needs. Procedures: Diagnostic laparoscopy, lysis of adhesion. No bowel resection. Procedure performed on November 11, 2020 Resuscitation Status: 11/09/20 19:19 Resuscitation Status Routine Resuscitation Status: FULL: Full Resuscitation Lab Results: 11/19/20 05:27 11/21/20 06:37 Abnormal Lab Results - Last 48 hrs 11/21/20 06:37: Potassium 3.2 L, BUN 8 L, Creatinine 2.30 H, Calcium 7.0 L, Phosphorus 1.0 L Microbiology - Entire Visit 11/09/20 17:50 Venous blood - Left Arm Blood Culture - Final NO GROWTH IN 5 DAYS 11/09/20 17:50 Venous blood - Left Arm Blood Culture - Final NO GROWTH IN 5 DAYS 11/09/20 19:50 Stool - Pending Stool Culture - Final 11/10/20 Unknown Stool C. difficile GDH Antigen & Toxins - Final 11/09/20 19:50 Stool - Pending Campylobacter Antigen Assay - Final 11/09/20 19:50 Stool - Pending Shiga Toxin Test - Final 11/09/20 19:50 Stool - Pending C. difficile GDH Antigen & Toxins - Final 11/09/20 19:50 Stool - Pending Escherichia coli 0157 Culture - Final Vitals: Vital Signs (12 hours) Temp Pulse Resp BP Pulse Ox 11/21/20 08:02 97.6 F 90 16 146/72 H 96 Weight Admit Weight 118 lb Weight 121 lb 9.6 oz Physical Exam: The patient was seen and examined on the day of discharge. General Appearance: NAD Eye: PERRL ENT: normocephalic atraumatic Neck: supple Respiratory: CTAB Cardiovascular: RRR Gastrointestinal: soft Extremities: no cyanosis Extremities - other findings: bl amputee Skin: normal turgor Neurological: cranial nerve grossly intact Musculoskeletal: normal tone Problem (1) Pneumatosis intestinalis Code(s): K63.89 - OTHER SPECIFIED DISEASES OF INTESTINE Status: Acute (2) Hypokalemia Code(s): E87.6 - HYPOKALEMIA Status: Acute (3) Abdominal pain Code(s): R10.9 - UNSPECIFIED ABDOMINAL PAIN Status: Acute Qualifiers: Abdominal location: lower abdomen, unspecified Qualified Code(s): R10.30 - Lower abdominal pain, unspecified (4) Nausea & vomiting Code(s): R11.2 - NAUSEA WITH VOMITING, UNSPECIFIED Status: Acute (5) Anal sphincter spasm Code(s): K59.4 - ANAL SPASM Status: Acute (6) Diabetes mellitus type 2, uncontrolled Code(s): E11.65 - TYPE 2 DIABETES MELLITUS WITH HYPERGLYCEMIA Status: Chronic (7) Diastolic congestive heart failure Code(s): I50.30 - UNSPECIFIED DIASTOLIC (CONGESTIVE) HEART FAILURE Status: Chronic Qualifiers: (8) ESRD (end stage renal disease) on dialysis Code(s): N18.6 - END STAGE RENAL DISEASE; Z99.2 - DEPENDENCE ON RENAL DIALYSIS Status: Chronic Time Spent in discharge related activities (mins): 35 Plan Home Medications: Medication Instructions Recorded Confirmed Type Aspirin [Ecotrin Low Strength] 81 mg PO DAILY 12/30/15 11/09/20 History Ferrous Sulfate [Feosol] 325 mg PO DAILY 10/14/19 11/09/20 History Isosorbide Mononitrate [Isosorbide 15 mg PO DAILY 10/14/19 11/09/20 History Mononitrate ER] Lisinopril [Zestril] 10 mg PO DAILY 06/08/20 11/09/20 History Promethazine [Phenergan] 25 mg PO Q6HR PRN 06/08/20 11/09/20 History Acetaminophen [Tylenol Regular 650 mg PO DAILY 11/09/20 11/09/20 History Strength] Atorvastatin Calcium 20 mg PO DAILY 11/09/20 11/09/20 History Benzonatate [Tessalon] 100 mg PO DAILY 11/09/20 11/09/20 History Clopidogrel Bisulfate [Plavix] 75 mg PO DAILY 11/09/20 11/09/20 History Metoprolol Tartrate [Lopressor] 25 mg PO DAILY 11/09/20 11/09/20 History Midodrine 10 mg PO Q8HR PRN 11/09/20 11/09/20 History Ondansetron [Zofran ODT] 4 mg PO Q6HR PRN 11/09/20 11/09/20 History Polyethylene Glycol 3350 [Miralax] 17 gm PO DAILY PRN 11/09/20 11/09/20 History Potassium Chloride 1 tab PO DAILY 11/09/20 11/09/20 History Sevelamer Carbonate [Renvela] 800 mg PO DAILY 11/09/20 11/09/20 History cloNIDine [Catapres] 0.2 mg PO DAILY 11/09/20 11/09/20 History Allergies: No Known Allergies Allergy (Verified 11/09/20 23:11) Activity:: Activity as Tolerated Nourishment:: Low Sodium Diet Referrals: Shayne Carrillo MD [Active] - ( DIRECTED ) Humberto Monk MD [Active] - (FOR DIALYSIS ) Unknown,Unknown [Primary Care Provider] - 7 Days Disposition: HOME HEALTH Quality CORE MEASURES:: N/A
--- NOTE | 2020-11-21 09:58 | PRG ---
DATE OF SERVICE: 11/21/2020 SUBJECTIVE: Ms. Saldivar is a 59-year-old female with ESRD followed by [facility] for her maintenance hemodialysis. She underwent hemodialysis yesterday without any difficulty. Abdominal pain with this patient has much improved. She has undergone a diagnostic laparoscopy. No complaints of chest pain or shortness of breath. OBJECTIVE: VITAL SIGNS: Blood pressure is 146/72, heart rate 90, respiratory rate 16, temperature 97.6, O2 saturation 96% on room air. GENERAL: Awake, alert, comfortable, not in distress. SKIN: Adequate turgor. HEENT: Pinkish conjunctivae. Anicteric sclerae. NECK: No neck mass. No carotid bruits. No JVD. CHEST: No deformities. LUNGS: Clear breath sounds. No wheezing. No crackles. HEART: Normal sinus rhythm. No murmurs, gallops, or rubs. ABDOMEN: Globular, soft, nontender. No masses. EXTREMITIES: No edema. No deformities. MEDICATIONS: On November 21, 2020, were reviewed. LABORATORY DATA: On November 19, 2020; white count 13.4, hemoglobin 10.9. On November 21, 2020; sodium 137, potassium 3.2, chloride 100, carbon dioxide 28, BUN 8, creatinine 2.3, phosphorus is 1, calcium is 7. ASSESSMENT AND PLAN: 1. Hypophosphatemia. Start phosphorus tablet replacement with this patient/powder on a b.i.d. dosing. 2. Mild hypokalemia observed. Adjust potassium bath with dialysis tomorrow. 3. End-stage renal disease, stable. No indication for any emergent hemodialysis. Continue Wednesday, Wednesday, and Wednesday dialysis schedule. 4. Abdominal pain, resolved, status post diagnostic laparoscopy, doing well, tolerating p.o. 5. Agree with current management. Job ID: [id number]
[2020-11-21] MEDS: Aluminum & Magnesium Hydroxide 60 ML, diphenhydrAMINE 150 MG, Lidocaine 2% Viscous Solu... SSW SCH (10:58)
[2020-11-21 11:43] VITALS: TEMP 98.2
[2020-11-21 16:25] VITALS: BP 138/73
[2020-11-21] MEDS ORDERED: PHOS-NAK 1 PKT PACK PO SCH (21:00)
== END 2020-11-21 16:48 | disposition home health service (06) | DRG 335 ==
LOC: ERS 16:08 → 2NO 19:19 → T4-B 11-14 21:11
PROVIDERS: ADMIT Internal Medicine; ATTEND Family Medicine
PROC: 0DNW4ZZ Release Peritoneum, Percutaneous Endoscopic Approach (ICD-10-PCS; principal; 2020-11-11)
PROC: 5A1D70Z Performance of Urinary Filtration, Intermittent, Less than 6 Hours Per Day (ICD-10-PCS; 2020-11-12)
DX: K63.89 Other specified diseases of intestine (principal); N18.6 End stage renal disease; G93.41 Metabolic encephalopathy; E87.2 Acidosis; I50.32 Chronic diastolic (congestive) heart failure; K56.7 Ileus, unspecified; Z20.822 Contact with and (suspected) exposure to COVID-19; E87.6 Hypokalemia; E11.65 Type 2 diabetes mellitus with hyperglycemia; E78.5 Hyperlipidemia, unspecified; E78.00 Pure hypercholesterolemia, unspecified; E11.22 Type 2 diabetes mellitus with diabetic chronic kidney disease; R77.8 Other specified abnormalities of plasma proteins; E11.51 Type 2 diabetes mellitus with diabetic peripheral angiopathy without gangrene; F03.90 Unspecified dementia, unspecified severity, without behavioral disturbance, psychotic disturbance, mood disturbance, and anxiety; D63.1 Anemia in chronic kidney disease; K52.9 Noninfective gastroenteritis and colitis, unspecified; E83.39 Other disorders of phosphorus metabolism; K59.4 Anal spasm; M79.641 Pain in right hand; E11.649 Type 2 diabetes mellitus with hypoglycemia without coma; E83.51 Hypocalcemia; R13.10 Dysphagia, unspecified; Z99.2 Dependence on renal dialysis; Z28.21 Immunization not carried out because of patient refusal; Z89.512 Acquired absence of left leg below knee; Z89.511 Acquired absence of right leg below knee; Z90.710 Acquired absence of both cervix and uterus; Z83.3 Family history of diabetes mellitus; Z82.49 Family history of ischemic heart disease and other diseases of the circulatory system; Z83.49 Family history of other endocrine, nutritional and metabolic diseases; Z79.899 Other long term (current) drug therapy; Z79.4 Long term (current) use of insulin
CPT/HCPCS: 0240U; 36415; 36416; 51701; 71045; 74018; 74176; 80048; 80053; 81003; 81015; 82553; 83605; 83690; 83735; 83880; 84100; 84484; 85007; 85025; 85027; 87040; 87045; 87046; 87324; 87340; 87427; 87449; 90935; 93005; 96365; 96367; 96368; 96375; 96376; G0257; J0171; J0692; J1100; J1644; J2270; J2405; J2543; J2550; J2704; J3010; J3370; J3475; J3480; J3490; Q0162; Q0163; Q5105; S0020; S0028

== ENCOUNTER 2020-12-30 22:40 | Inpatient (IN) | payer MEDICARE, MEDICAID ==
[2020-12-30 23:37] LABS: #Eosinphils 0.1 thou/uL (0.0-0.7); #Lymphocytes 2.2 thou/uL (1.20-3.40); #Monocytes 0.7 thou/uL (0.11-0.59); #Neutrophils 8.3 thou/uL (1.40-6.50); %Basophils 0.4 % (0.0-1.0); %Eosinophils 0.7 % (0.0-10.0); %Lymphocytes 19.5 % (21.0-51.0); %Monocytes 6.2 % (0.0-10.0); %Neutrophils 73.2 % (42.0-75.0); Hemoglobin 13.4 g/dL (12.0-16.0); Mean Corpuscular HGB CONC 31.3 g/dL (32.0-36.0); Mean Corpuscular Hemoglobin 31.1 pg (27.0-31.0); Mean Corpuscular Volume 99.4 fL (78.0-98.0); Mean Platelet Volume 6.9 fL (7.4-10.4); Platelet Count 293 thou/uL (130-400); RBC Distribution Width 13.7 % (11.5-14.5); White Blood Cell (WBC) Count 11.3 thou/uL (4.8-10.8)
[2020-12-30] MEDS ORDERED: Ondansetron PF 4 MG/2 ML Vial ONE (23:52)
[2020-12-30 23:53] LABS: ALT (SGPT) 13 U/L (8-55); AST (SGOT) 24 U/L (5-34); Albumin 3.3 g/dL (3.4-4.8); Alkaline Phosphatase 206 U/L (40-110); Anion Gap 15 mmol/L (10-20); BUN (Urea Nitrogen) 12 mg/dL (9.8-20.1); Bilirubin, Total 0.3 mg/dL (0.2-1.2); Calc. Creatinine Clearance 0 mL/min (70-130); Carbon Dioxide 26 mmol/L (23-31); Chloride 107 mmol/L (98-107); Globulin 4.4 g/dL (2.4-3.5); Glucose 175 mg/dL (80-115); Lipase 170 U/L (8-78); Protein, Total 7.7 g/dL (5.8-8.1); Sodium 144 mmol/L (136-145)
[2020-12-31] MEDS ORDERED: Ondansetron ODT 4 MG TAB PO PRN (02:28)
[2020-12-31] MEDS ORDERED: Lactated Ringer's 1,000 ML IV SCH (05:00)
[2020-12-31] MEDS ORDERED: Lactated Ringer's 500 ML IV SCH (05:00)
[2020-12-31] MEDS ORDERED: Piperacillin/Tazobactam 4.5 GM in Sodium Chloride 0.9% 100 ML IVPB SCH ×2 (05:15→14:00)
[2020-12-31] MEDS ORDERED: Lactated Ringer's 250 ML IV SCH (06:15)
[2020-12-31 06:30] VITALS: BMI 41.8
[2020-12-31 06:45] LABS: #Basophils 0.1 thou/uL (0.0-0.2); #Eosinphils 0.1 thou/uL (0.0-0.7); #Monocytes 0.8 thou/uL (0.11-0.59); #Neutrophils 5.8 thou/uL (1.40-6.50); %Basophils 0.8 % (0.0-1.0); %Eosinophils 0.8 % (0.0-10.0); %Lymphocytes 30.8 % (21.0-51.0); %Monocytes 7.8 % (0.0-10.0); %Neutrophils 59.8 % (42.0-75.0); Hemoglobin 12.8 g/dL (12.0-16.0); Mean Corpuscular HGB CONC 31.9 g/dL (32.0-36.0); Mean Corpuscular Hemoglobin 31.8 pg (27.0-31.0); Mean Corpuscular Volume 99.7 fL (78.0-98.0); Mean Platelet Volume 6.9 fL (7.4-10.4); Platelet Count 259 thou/uL (130-400); RBC Distribution Width 13.7 % (11.5-14.5); Red Blood Cell (RBC) Count 4.03 mill/uL (4.20-5.40); White Blood Cell (WBC) Count 9.7 thou/uL (4.8-10.8)
[2020-12-31 07:04] LABS: Anion Gap 14 mmol/L (10-20); BUN (Urea Nitrogen) 14 mg/dL (9.8-20.1); Calc. Creatinine Clearance 28 mL/min (70-130); Carbon Dioxide 27 mmol/L (23-31); Chloride 108 mmol/L (98-107); Glucose 113 mg/dL (80-115); Sodium 145 mmol/L (136-145)
[2020-12-31] MEDS: Enoxaparin Sodium 30 MG/0.3 ML SYRINGE SC SCH (10:56)
[2020-12-31] MEDS ORDERED: Dextrose 50% Abboject 50 ML SYRINGE ONE (11:44)
[2020-12-31 14:30] LABS: SARS-CoV-2 PCR by NAA Not Detected (NotDetected)
[2020-12-31] MEDS: Dextrose 5 % And 0.9 % NaCl 1,000 ML IV SCH (18:25)
[2021-01-01] MEDS: Dextrose 5 % And 0.9 % NaCl 1,000 ML IV SCH (06:09)
[2021-01-01 06:59] LABS: #Basophils 0.1 thou/uL (0.0-0.2); #Eosinphils 0.2 thou/uL (0.0-0.7); #Lymphocytes 3.9 thou/uL (1.20-3.40); #Monocytes 0.9 thou/uL (0.11-0.59); #Neutrophils 6.7 thou/uL (1.40-6.50); %Basophils 0.5 % (0.0-1.0); %Eosinophils 1.6 % (0.0-10.0); %Lymphocytes 33.3 % (21.0-51.0); %Monocytes 7.9 % (0.0-10.0); %Neutrophils 56.8 % (42.0-75.0); Hemoglobin 12.2 g/dL (12.0-16.0); Mean Corpuscular Hemoglobin 31.1 pg (27.0-31.0); Mean Platelet Volume 7.2 fL (7.4-10.4); Platelet Count 268 thou/uL (130-400); RBC Distribution Width 13.6 % (11.5-14.5); Red Blood Cell (RBC) Count 3.92 mill/uL (4.20-5.40); White Blood Cell (WBC) Count 11.8 thou/uL (4.8-10.8)
[2021-01-01 07:20] LABS: ALT (SGPT) 10 U/L (8-55); AST (SGOT) 26 U/L (5-34); Albumin 2.8 g/dL (3.4-4.8); Alkaline Phosphatase 161 U/L (40-110); Anion Gap 16 mmol/L (10-20); BUN (Urea Nitrogen) 21 mg/dL (9.8-20.1); Bilirubin, Total 0.3 mg/dL (0.2-1.2); Calc. Creatinine Clearance 20 mL/min (70-130); Calcium 8.8 mg/dL (7.8-10.44); Carbon Dioxide 23 mmol/L (23-31); Chloride 107 mmol/L (98-107); Glucose 84 mg/dL (80-115); Magnesium 1.8 mg/dL (1.6-2.6); Potassium 3.8 mmol/L (3.5-5.1); Protein, Total 6.8 g/dL (5.8-8.1); Sodium 142 mmol/L (136-145)
[2021-01-01] MEDS ORDERED: Polyethylene Glycol 3350 17 GM Packet PO PRN (08:11)
[2021-01-01] MEDS: Metoprolol Tartrate 25 MG TAB PO SCH (10:53)
[2021-01-01] MEDS: Sevelamer Carbonate 800 MG TAB PO SCH (14:31)
[2021-01-01] MEDS: Aspirin 81 mg Enteric Coated Tablet PO SCH (14:31)
[2021-01-01] MEDS: Enoxaparin Sodium 30 MG/0.3 ML SYRINGE SC SCH (14:32)
[2021-01-01] MEDS: Clopidogrel Bisulfate 75 MG TAB PO SCH (14:32)
[2021-01-01 15:00] LABS: Phosphorus 2.8 mg/dL (2.3-4.7)
[2021-01-02] MEDS: Dextrose 5 % And 0.9 % NaCl 1,000 ML IV SCH ×2 (01:23→11:39)
[2021-01-02] MEDS: Enoxaparin Sodium 30 MG/0.3 ML SYRINGE SC SCH (08:24)
[2021-01-02] MEDS: Aspirin 81 mg Enteric Coated Tablet PO SCH (08:24)
[2021-01-02] MEDS: Clopidogrel Bisulfate 75 MG TAB PO SCH (08:24)
[2021-01-02] MEDS: Sevelamer Carbonate 800 MG TAB PO SCH (08:24)
[2021-01-02] MEDS: Metoprolol Tartrate 25 MG TAB PO SCH (08:49)
[2021-01-03] MEDS: Dextrose 5 % And 0.9 % NaCl 1,000 ML IV SCH ×2 (05:55→10:00)
[2021-01-03 07:07] LABS: #Eosinphils 0.2 thou/uL (0.0-0.7); #Lymphocytes 3.1 thou/uL (1.20-3.40); #Monocytes 0.7 thou/uL (0.11-0.59); #Neutrophils 3.9 thou/uL (1.40-6.50); %Basophils 0.6 % (0.0-1.0); %Eosinophils 2.7 % (0.0-10.0); %Lymphocytes 39.4 % (21.0-51.0); %Monocytes 8.7 % (0.0-10.0); %Neutrophils 48.6 % (42.0-75.0); Hemoglobin 11.8 g/dL (12.0-16.0); Mean Corpuscular HGB CONC 32.5 g/dL (32.0-36.0); Mean Corpuscular Hemoglobin 32.1 pg (27.0-31.0); Mean Corpuscular Volume 98.7 fL (78.0-98.0); Mean Platelet Volume 7.6 fL (7.4-10.4); Platelet Count 267 thou/uL (130-400); RBC Distribution Width 12.9 % (11.5-14.5); Red Blood Cell (RBC) Count 3.67 mill/uL (4.20-5.40); White Blood Cell (WBC) Count 7.9 thou/uL (4.8-10.8)
[2021-01-03 07:20] LABS: Anion Gap 11 mmol/L (10-20); BUN (Urea Nitrogen) 11 mg/dL (9.8-20.1); Calc. Creatinine Clearance 22 mL/min (70-130); Calcium 7.6 mg/dL (7.8-10.44); Carbon Dioxide 24 mmol/L (23-31); Chloride 103 mmol/L (98-107); Glucose 67 mg/dL (80-115); Potassium 3.2 mmol/L (3.5-5.1); Sodium 135 mmol/L (136-145)
[2021-01-03] MEDS: Enoxaparin Sodium 30 MG/0.3 ML SYRINGE SC SCH (10:00)
[2021-01-03] MEDS: Clopidogrel Bisulfate 75 MG TAB PO SCH (10:04)
[2021-01-03] MEDS: Sevelamer Carbonate 800 MG TAB PO SCH (10:04)
[2021-01-03] MEDS: Aspirin 81 mg Enteric Coated Tablet PO SCH (10:04)
[2021-01-03] MEDS: Metoprolol Tartrate 25 MG TAB PO SCH (10:04)
[2021-01-04] MEDS: Dextrose 5 % And 0.9 % NaCl 1,000 ML IV SCH ×3 (05:22→15:23)
[2021-01-04 06:02] LABS: #Basophils 0.1 thou/uL (0.0-0.2); #Eosinphils 0.1 thou/uL (0.0-0.7); #Lymphocytes 2.4 thou/uL (1.20-3.40); #Monocytes 0.6 thou/uL (0.11-0.59); #Neutrophils 3.9 thou/uL (1.40-6.50); %Basophils 1.2 % (0.0-1.0); %Eosinophils 1.8 % (0.0-10.0); %Lymphocytes 33.3 % (21.0-51.0); %Monocytes 8.6 % (0.0-10.0); %Neutrophils 55.1 % (42.0-75.0); Hemoglobin 11.5 g/dL (12.0-16.0); Mean Corpuscular HGB CONC 31.5 g/dL (32.0-36.0); Mean Corpuscular Hemoglobin 30.8 pg (27.0-31.0); Mean Corpuscular Volume 97.6 fL (78.0-98.0); Mean Platelet Volume 6.9 fL (7.4-10.4); Platelet Count 242 thou/uL (130-400); RBC Distribution Width 12.9 % (11.5-14.5); Red Blood Cell (RBC) Count 3.73 mill/uL (4.20-5.40); White Blood Cell (WBC) Count 7.1 thou/uL (4.8-10.8)
[2021-01-04 06:32] LABS: Anion Gap 10 mmol/L (10-20); BUN (Urea Nitrogen) 4 mg/dL (9.8-20.1); Calc. Creatinine Clearance 39 mL/min (70-130); Calcium 7.2 mg/dL (7.8-10.44); Carbon Dioxide 26 mmol/L (23-31); Chloride 103 mmol/L (98-107); Glucose 78 mg/dL (80-115); Sodium 136 mmol/L (136-145)
[2021-01-04 06:35] LABS: Potassium 2.9 mmol/L (3.5-5.1)
[2021-01-04] MEDS ORDERED: Electrolyte Replacement Protocol FS PRN (07:00)
[2021-01-04] MEDS: Potassium Bicarbonate/Cit Ac 20 MEQ TAB PO SCH ×2 (07:42→10:12)
[2021-01-04] MEDS: Metoprolol Tartrate 25 MG TAB PO SCH (07:43)
[2021-01-04] MEDS: Aspirin 81 mg Enteric Coated Tablet PO SCH (07:43)
[2021-01-04] MEDS: Sevelamer Carbonate 800 MG TAB PO SCH (07:43)
[2021-01-04] MEDS: Clopidogrel Bisulfate 75 MG TAB PO SCH (07:43)
[2021-01-04] MEDS: Enoxaparin Sodium 30 MG/0.3 ML SYRINGE SC SCH (07:43)
[2021-01-04] MEDS ORDERED: Potassium Chloride 20 MEQ TAB PO SCH (12:00)
[2021-01-04] MEDS ORDERED: Potassium Bicarbonate/Cit Ac 20 MEQ TAB PO SCH (12:15)
[2021-01-05 06:42] LABS: #Basophils 0.1 thou/uL (0.0-0.2); #Eosinphils 0.2 thou/uL (0.0-0.7); #Monocytes 0.8 thou/uL (0.11-0.59); #Neutrophils 4.8 thou/uL (1.40-6.50); %Basophils 0.6 % (0.0-1.0); %Eosinophils 2.7 % (0.0-10.0); %Lymphocytes 33.7 % (21.0-51.0); %Monocytes 8.7 % (0.0-10.0); %Neutrophils 54.3 % (42.0-75.0); Hemoglobin 12.1 g/dL (12.0-16.0); Mean Corpuscular HGB CONC 31.3 g/dL (32.0-36.0); Mean Corpuscular Volume 98.8 fL (78.0-98.0); Mean Platelet Volume 6.8 fL (7.4-10.4); Platelet Count 262 thou/uL (130-400); Red Blood Cell (RBC) Count 3.92 mill/uL (4.20-5.40); White Blood Cell (WBC) Count 8.8 thou/uL (4.8-10.8)
[2021-01-05 07:03] LABS: Anion Gap 12 mmol/L (10-20); BUN (Urea Nitrogen) 7 mg/dL (9.8-20.1); Calc. Creatinine Clearance 26 mL/min (70-130); Calcium 7.5 mg/dL (7.8-10.44); Carbon Dioxide 22 mmol/L (23-31); Chloride 106 mmol/L (98-107); Glucose 79 mg/dL (80-115); Potassium 3.9 mmol/L (3.5-5.1); Sodium 136 mmol/L (136-145)
[2021-01-05] MEDS ORDERED: Amlodipine 5 MG TAB PO SCH (09:00)
[2021-01-05] MEDS: Sevelamer Carbonate 800 MG TAB PO SCH (09:41)
[2021-01-05] MEDS: Enoxaparin Sodium 30 MG/0.3 ML SYRINGE SC SCH (09:41)
[2021-01-05] MEDS: Amlodipine 10 MG TAB PO SCH (09:41)
[2021-01-05] MEDS: Aspirin 81 mg Enteric Coated Tablet PO SCH (09:41)
[2021-01-05] MEDS: Clopidogrel Bisulfate 75 MG TAB PO SCH (09:41)
[2021-01-05] MEDS: Metoprolol Tartrate 25 MG TAB PO SCH (09:41)
[2021-01-05] MEDS: Dextrose 5 % And 0.9 % NaCl 1,000 ML IV SCH ×2 (09:42→22:45)
[2021-01-05] MEDS: Simethicone Chewable 80 MG TAB PO PRN (22:45)
[2021-01-06 06:27] LABS: #Basophils 0.1 thou/uL (0.0-0.2); #Eosinphils 0.2 thou/uL (0.0-0.7); #Lymphocytes 2.8 thou/uL (1.20-3.40); #Monocytes 0.8 thou/uL (0.11-0.59); #Neutrophils 6.3 thou/uL (1.40-6.50); %Basophils 0.8 % (0.0-1.0); %Eosinophils 2.3 % (0.0-10.0); %Lymphocytes 27.7 % (21.0-51.0); %Monocytes 7.3 % (0.0-10.0); %Neutrophils 61.9 % (42.0-75.0); Hemoglobin 11.9 g/dL (12.0-16.0); Mean Corpuscular HGB CONC 31.7 g/dL (32.0-36.0); Mean Corpuscular Hemoglobin 31.4 pg (27.0-31.0); Mean Corpuscular Volume 98.9 fL (78.0-98.0); Mean Platelet Volume 6.8 fL (7.4-10.4); Platelet Count 251 thou/uL (130-400); RBC Distribution Width 12.8 % (11.5-14.5); White Blood Cell (WBC) Count 10.2 thou/uL (4.8-10.8)
[2021-01-06 06:44] LABS: Anion Gap 16 mmol/L (10-20); BUN (Urea Nitrogen) 12 mg/dL (9.8-20.1); Calc. Creatinine Clearance 21 mL/min (70-130); Calcium 7.3 mg/dL (7.8-10.44); Carbon Dioxide 16 mmol/L (23-31); Chloride 109 mmol/L (98-107); Glucose 82 mg/dL (80-115); Potassium 3.6 mmol/L (3.5-5.1); Sodium 137 mmol/L (136-145)
[2021-01-06] MEDS: Enoxaparin Sodium 30 MG/0.3 ML SYRINGE SC SCH (08:30)
[2021-01-06] MEDS: Aspirin 81 mg Enteric Coated Tablet PO SCH (13:37)
[2021-01-06] MEDS: Metoprolol Tartrate 25 MG TAB PO SCH (13:37)
[2021-01-06] MEDS: Sevelamer Carbonate 800 MG TAB PO SCH (13:37)
[2021-01-06] MEDS: Clopidogrel Bisulfate 75 MG TAB PO SCH (13:37)
[2021-01-06] MEDS: Dextrose 5 % And 0.9 % NaCl 1,000 ML IV SCH ×2 (13:38→16:49)
[2021-01-06] MEDS: Amlodipine 10 MG TAB PO SCH (13:45)
[2021-01-06] MEDS ORDERED: cefOXitin Sodium/Dextrose,Iso 2 GM in Premix Bag 1 BAG IVPB SCH (15:30)
[2021-01-07] MEDS: Dextrose 5 % And 0.9 % NaCl 1,000 ML IV SCH ×2 (05:38→16:28)
[2021-01-07 06:02] LABS: #Basophils 0.1 thou/uL (0.0-0.2); #Eosinphils 0.3 thou/uL (0.0-0.7); #Lymphocytes 3.2 thou/uL (1.20-3.40); #Monocytes 0.8 thou/uL (0.11-0.59); %Basophils 1.1 % (0.0-1.0); %Lymphocytes 34.4 % (21.0-51.0); %Monocytes 8.8 % (0.0-10.0); %Neutrophils 52.7 % (42.0-75.0); Hemoglobin 11.8 g/dL (12.0-16.0); Mean Corpuscular HGB CONC 31.4 g/dL (32.0-36.0); Mean Corpuscular Hemoglobin 30.8 pg (27.0-31.0); Mean Corpuscular Volume 98.2 fL (78.0-98.0); Mean Platelet Volume 7.2 fL (7.4-10.4); Platelet Count 258 thou/uL (130-400); RBC Distribution Width 12.9 % (11.5-14.5); Red Blood Cell (RBC) Count 3.83 mill/uL (4.20-5.40); White Blood Cell (WBC) Count 9.4 thou/uL (4.8-10.8)
[2021-01-07 06:21] LABS: Anion Gap 8 mmol/L (10-20); BUN (Urea Nitrogen) 7 mg/dL (9.8-20.1); Calc. Creatinine Clearance 34 mL/min (70-130); Calcium 7.5 mg/dL (7.8-10.44); Carbon Dioxide 25 mmol/L (23-31); Chloride 105 mmol/L (98-107); Glucose 74 mg/dL (80-115); Potassium 3.4 mmol/L (3.5-5.1); Sodium 135 mmol/L (136-145)
[2021-01-07 06:26] LABS: Phosphorus 1.8 mg/dL (2.3-4.7)
[2021-01-07] MEDS ORDERED: Potassium Chloride 20 MEQ TAB PO SCH (08:15)
[2021-01-07] MEDS: PHOS-NAK 1 PKT PACK PO SCH ×2 (08:18→17:17)
[2021-01-07] MEDS: Sevelamer Carbonate 800 MG TAB PO SCH (08:18)
[2021-01-07] MEDS: Amlodipine 10 MG TAB PO SCH (08:20)
[2021-01-07] MEDS: Metoprolol Tartrate 25 MG TAB PO SCH (08:20)
[2021-01-07] MEDS: Aspirin 81 mg Enteric Coated Tablet PO SCH (08:20)
[2021-01-07] MEDS: Clopidogrel Bisulfate 75 MG TAB PO SCH (08:21)
[2021-01-07] MEDS: Enoxaparin Sodium 30 MG/0.3 ML SYRINGE SC SCH (08:21)
[2021-01-07] MEDS ORDERED: Fentanyl 100 MCG/2 ML VIAL ONE ×2 (10:22→12:25)
[2021-01-07] MEDS ORDERED: Midazolam HCl 2 mg/2 ml Vial ONE (10:22)
[2021-01-07] MEDS ORDERED: Glycopyrrolate 0.2 MG/ML 5 ML SYRINGE ONE (13:04)
[2021-01-07] MEDS ORDERED: PROPOFOL 200 MG/20 ML VIAL ONE (13:04)
[2021-01-07] MEDS ORDERED: Dexamethasone 20 MG/5 ML VIAL ONE (13:04)
[2021-01-07] MEDS ORDERED: ePHEDrine 50 MG/ML VIAL ONE (13:04)
[2021-01-07] MEDS ORDERED: Lidocaine 1% PF 5 ML VIAL ONE (13:04)
[2021-01-07] MEDS ORDERED: Rocuronium Bromide 10 MG/ML (10ML VIAL) ONE (13:04)
[2021-01-07] MEDS ORDERED: PHENYLEPHRINE-NS 100 MCG/ML 10 ML SYRINGE ONE (13:04)
[2021-01-07] MEDS ORDERED: Bupivacaine HCl 0.5%/Epinephrine 1:200,000/PF 30 ml Vial ONE (13:04)
[2021-01-07] MEDS ORDERED: Lidocaine 1% w/Epinephrine 1:100K 20 ML VIAL ONE (13:27)
[2021-01-07] MEDS ORDERED: Bupivacaine 0.25% HCL 30 ML VIAL ONE (13:27)
[2021-01-07] MEDS ORDERED: Promethazine HCl 25 MG/ML VIAL ONE (15:58)
[2021-01-07] MEDS: Morphine 2 MG/ML VIAL SLOW IVP PRN ×2 (18:39→22:46)
[2021-01-07] MEDS: Ondansetron PF 4 MG/2 ML Vial IVP PRN (22:46)
[2021-01-08] MEDS: Dextrose 5 % And 0.9 % NaCl 1,000 ML IV SCH ×2 (02:33→23:46)
[2021-01-08] MEDS: Morphine 2 MG/ML VIAL SLOW IVP PRN ×2 (06:22→14:10)
[2021-01-08] MEDS: Ondansetron PF 4 MG/2 ML Vial IVP PRN (06:22)
[2021-01-08 07:05] LABS: Hemoglobin 11.2 g/dL (12.0-16.0); Mean Corpuscular Hemoglobin 31.4 pg (27.0-31.0); Mean Corpuscular Volume 98.3 fL (78.0-98.0); Mean Platelet Volume 7.2 fL (7.4-10.4); Platelet Count 272 thou/uL (130-400); RBC Distribution Width 12.8 % (11.5-14.5); Red Blood Cell (RBC) Count 3.58 mill/uL (4.20-5.40); White Blood Cell (WBC) Count 18.8 thou/uL (4.8-10.8)
[2021-01-08 07:11] LABS: Anion Gap 16 mmol/L (10-20); BUN (Urea Nitrogen) 13 mg/dL (9.8-20.1); Calc. Creatinine Clearance 24 mL/min (70-130); Calcium 7.5 mg/dL (7.8-10.44); Carbon Dioxide 20 mmol/L (23-31); Chloride 103 mmol/L (98-107); Glucose 207 mg/dL (80-115); Potassium 4.5 mmol/L (3.5-5.1); Sodium 134 mmol/L (136-145)
[2021-01-08 07:25] LABS: Phosphorus 3.6 mg/dL (2.3-4.7)
[2021-01-08] MEDS: Metoprolol Tartrate 25 MG TAB PO SCH (08:21)
[2021-01-08] MEDS: Amlodipine 10 MG TAB PO SCH (08:21)
[2021-01-08 09:05] LABS: Band 5 % (5-11); Lymphocytes 8 % (21-51); MDiff Complete? YES; Monocytes 6 % (0-10); Neutrophil 81 % (42-75); Platelet Morphology Comment Appears Adequate; Polychromasia SLIGHT = 2-3 cells (100X) (0-2/hpf)
[2021-01-08] MEDS: Sevelamer Carbonate 800 MG TAB PO SCH (12:43)
[2021-01-08] MEDS: Clopidogrel Bisulfate 75 MG TAB PO SCH (12:43)
[2021-01-08] MEDS: Enoxaparin Sodium 30 MG/0.3 ML SYRINGE SC SCH (12:44)
[2021-01-08] MEDS: Aspirin 81 mg Enteric Coated Tablet PO SCH (12:44)
[2021-01-08] MEDS ORDERED: Lactated Ringer's 500 ML IV SCH (14:15)
[2021-01-08] MEDS: cefOXitin Sodium/Dextrose,Iso 1 GM in Premix Bag 1 BAG IVPB SCH ×2 (17:06→23:47)
[2021-01-08] MEDS: HYDROcodone/Acetaminophen 7.5/325 mg Tablet PO PRN (20:26)
[2021-01-09] MEDS: cefOXitin Sodium/Dextrose,Iso 1 GM in Premix Bag 1 BAG IVPB SCH ×3 (05:28→17:11)
[2021-01-09 06:33] LABS: #Eosinphils 0.1 thou/uL (0.0-0.7); #Lymphocytes 2.3 thou/uL (1.20-3.40); #Monocytes 0.8 thou/uL (0.11-0.59); #Neutrophils 10.2 thou/uL (1.40-6.50); %Basophils 0.2 % (0.0-1.0); %Eosinophils 0.8 % (0.0-10.0); %Lymphocytes 16.8 % (21.0-51.0); %Monocytes 5.8 % (0.0-10.0); %Neutrophils 76.3 % (42.0-75.0); Hemoglobin 10.5 g/dL (12.0-16.0); Mean Corpuscular HGB CONC 31.8 g/dL (32.0-36.0); Mean Corpuscular Hemoglobin 31.5 pg (27.0-31.0); Mean Platelet Volume 7.5 fL (7.4-10.4); Platelet Count 217 thou/uL (130-400); RBC Distribution Width 12.9 % (11.5-14.5); Red Blood Cell (RBC) Count 3.33 mill/uL (4.20-5.40); White Blood Cell (WBC) Count 13.4 thou/uL (4.8-10.8)
[2021-01-09 06:56] LABS: Anion Gap 14 mmol/L (10-20); BUN (Urea Nitrogen) 9 mg/dL (9.8-20.1); Calc. Creatinine Clearance 27 mL/min (70-130); Calcium 7.3 mg/dL (7.8-10.44); Carbon Dioxide 27 mmol/L (23-31); Chloride 100 mmol/L (98-107); Glucose 145 mg/dL (80-115); Potassium 3.7 mmol/L (3.5-5.1); Sodium 137 mmol/L (136-145)
[2021-01-09] MEDS: Amlodipine 10 MG TAB PO SCH (08:02)
[2021-01-09] MEDS: Sevelamer Carbonate 800 MG TAB PO SCH (08:02)
[2021-01-09] MEDS: Aspirin 81 mg Enteric Coated Tablet PO SCH (08:02)
[2021-01-09] MEDS: Enoxaparin Sodium 30 MG/0.3 ML SYRINGE SC SCH (08:02)
[2021-01-09] MEDS: Clopidogrel Bisulfate 75 MG TAB PO SCH (08:02)
[2021-01-09] MEDS: Metoprolol Tartrate 25 MG TAB PO SCH (08:02)
[2021-01-09] MEDS: Dextrose 5 % And 0.9 % NaCl 1,000 ML IV SCH ×2 (11:35→16:10)
[2021-01-09] MEDS: Morphine 2 MG/ML VIAL SLOW IVP PRN ×2 (13:11→16:13)
[2021-01-09] MEDS: HYDROcodone/Acetaminophen 7.5/325 mg Tablet PO PRN ×2 (14:11→21:51)
[2021-01-09] MEDS ORDERED: Clopidogrel Bisulfate 75 MG TAB ONE (16:54)
[2021-01-09] MEDS: Simethicone Chewable 80 MG TAB PO PRN (17:15)
[2021-01-09] MEDS ORDERED: Ketorolac Tromethamine 30 MG/ML VIAL IVP SCH (19:00)
[2021-01-10] MEDS: Dextrose 5 % And 0.9 % NaCl 1,000 ML IV SCH ×2 (00:23→05:24)
[2021-01-10] MEDS: Ondansetron PF 4 MG/2 ML Vial IVP PRN ×2 (00:23→14:23)
[2021-01-10] MEDS: cefOXitin Sodium/Dextrose,Iso 1 GM in Premix Bag 1 BAG IVPB SCH ×4 (00:23→20:03)
[2021-01-10 07:00] LABS: Hemoglobin 9.8 g/dL (12.0-16.0); Mean Corpuscular HGB CONC 31.7 g/dL (32.0-36.0); Mean Corpuscular Hemoglobin 31.6 pg (27.0-31.0); Mean Corpuscular Volume 99.5 fL (78.0-98.0); Mean Platelet Volume 7.9 fL (7.4-10.4); Platelet Count 186 thou/uL (130-400); RBC Distribution Width 12.9 % (11.5-14.5); Red Blood Cell (RBC) Count 3.11 mill/uL (4.20-5.40)
[2021-01-10 07:26] LABS: Anion Gap 16 mmol/L (10-20); BUN (Urea Nitrogen) 16 mg/dL (9.8-20.1); Calc. Creatinine Clearance 17 mL/min (70-130); Calcium 7.5 mg/dL (7.8-10.44); Carbon Dioxide 30 mmol/L (23-31); Chloride 96 mmol/L (98-107); Glucose 138 mg/dL (80-115); Potassium 3.5 mmol/L (3.5-5.1); Sodium 138 mmol/L (136-145)
[2021-01-10] MEDS ORDERED: Potassium Chloride 20 MEQ TAB PO SCH (08:45)
[2021-01-10 09:19] LABS: MDiff Complete? YES
[2021-01-10 09:20] LABS: Band 28 % (5-11); Eosinophils 1 % (0-10); Lymphocytes 18 % (21-51); Monocytes 8 % (0-10); Neutrophil 45 % (42-75); Platelet Morphology Comment Appears Adequate; Polychromasia SLIGHT = 2-3 cells (100X) (0-2/hpf)
[2021-01-10] MEDS: Amlodipine 10 MG TAB PO SCH (11:44)
[2021-01-10] MEDS: Metoprolol Tartrate 25 MG TAB PO SCH (11:45)
[2021-01-10] MEDS: Sevelamer Carbonate 800 MG TAB PO SCH (13:19)
[2021-01-10] MEDS: Clopidogrel Bisulfate 75 MG TAB PO SCH (13:19)
[2021-01-10] MEDS: Aspirin 81 mg Enteric Coated Tablet PO SCH (13:19)
[2021-01-10] MEDS: Enoxaparin Sodium 30 MG/0.3 ML SYRINGE SC SCH (13:20)
[2021-01-10] MEDS ORDERED: Iopamidol-370 76% 500 ML 1 ML ONE (14:36)
[2021-01-10] MEDS ORDERED: Iopamidol 370 76% 50 ML VIAL FS ONE (14:36)
[2021-01-10] MEDS ORDERED: Sodium Chloride 0.9% 1,000 ML IV SCH (19:45)
[2021-01-10] MEDS ORDERED: Fentanyl 100 MCG/2 ML VIAL SLOW IVP PRN (23:25)
[2021-01-10] MEDS: Dextrose 5 %-0.45 % NaCl 1,000 ML IV SCH (23:34)
[2021-01-11] MEDS: cefOXitin Sodium/Dextrose,Iso 1 GM in Premix Bag 1 BAG IVPB SCH ×4 (01:09→17:21)
[2021-01-11] MEDS ORDERED: Fentanyl 100 MCG/2 ML VIAL SLOW IVP PRN (02:01)
[2021-01-11] MEDS: Amlodipine 10 MG TAB PO SCH (08:44)
[2021-01-11] MEDS: Sevelamer Carbonate 800 MG TAB PO SCH (08:44)
[2021-01-11] MEDS: Aspirin 81 mg Enteric Coated Tablet PO SCH (08:44)
[2021-01-11] MEDS: Metoprolol Tartrate 25 MG TAB PO SCH (08:44)
[2021-01-11] MEDS: Clopidogrel Bisulfate 75 MG TAB PO SCH (08:44)
[2021-01-11 08:47] LABS: Anion Gap 14 mmol/L (10-20); BUN (Urea Nitrogen) 8 mg/dL (9.8-20.1); Calc. Creatinine Clearance 31 mL/min (70-130); Calcium 7.1 mg/dL (7.8-10.44); Carbon Dioxide 26 mmol/L (23-31); Chloride 101 mmol/L (98-107); Glucose 87 mg/dL (80-115); Potassium 3.4 mmol/L (3.5-5.1); Sodium 138 mmol/L (136-145)
[2021-01-11] MEDS: Enoxaparin Sodium 30 MG/0.3 ML SYRINGE SC SCH (08:49)
[2021-01-11] MEDS ORDERED: Potassium Chloride 20 MEQ TAB PO SCH (10:30)
[2021-01-11] MEDS ORDERED: Potassium Chloride 40 MEQ in Sodium Chloride 0.9% 250 ML 250 ML IVPB SCH (11:00)
[2021-01-11] MEDS: Dextrose 5 %-0.45 % NaCl 1,000 ML IV SCH ×2 (12:00→12:58)
[2021-01-11] MEDS: Morphine 2 MG/ML VIAL SLOW IVP PRN (14:01)
[2021-01-12] MEDS: cefOXitin Sodium/Dextrose,Iso 1 GM in Premix Bag 1 BAG IVPB SCH ×2 (00:57→05:17)
[2021-01-12] MEDS: Dextrose 5 %-0.45 % NaCl 1,000 ML IV SCH ×3 (01:17→16:04)
[2021-01-12] MEDS: Morphine 2 MG/ML VIAL SLOW IVP PRN ×3 (01:25→21:17)
[2021-01-12] MEDS: cefOXitin Sodium 1 GM in Sodium Chloride 0.9% 100 ML IVPB SCH ×3 (05:30→18:06)
[2021-01-12] MEDS: Aspirin 81 mg Enteric Coated Tablet PO SCH (08:13)
[2021-01-12] MEDS: Amlodipine 10 MG TAB PO SCH (08:13)
[2021-01-12] MEDS: Sevelamer Carbonate 800 MG TAB PO SCH (08:14)
[2021-01-12] MEDS: Clopidogrel Bisulfate 75 MG TAB PO SCH (08:14)
[2021-01-12] MEDS: Metoprolol Tartrate 25 MG TAB PO SCH (08:14)
[2021-01-12] MEDS: Enoxaparin Sodium 30 MG/0.3 ML SYRINGE SC SCH (08:45)
[2021-01-12 09:07] LABS: Band 32 % (5-11); Eosinophils 1 % (0-10); Hemoglobin 8.7 g/dL (12.0-16.0); Lymphocytes 16 % (21-51); MDiff Complete? YES; Mean Corpuscular HGB CONC 32.3 g/dL (32.0-36.0); Mean Corpuscular Hemoglobin 31.5 pg (27.0-31.0); Mean Corpuscular Volume 97.6 fL (78.0-98.0); Mean Platelet Volume 8.2 fL (7.4-10.4); Metamyelocyte 1 % (0-0); Neutrophil 47 % (42-75); Platelet Count 142 thou/uL (130-400); RBC Distribution Width 12.8 % (11.5-14.5); Reactive Lymphocytes 3 % (0-10); Red Blood Cell (RBC) Count 2.75 mill/uL (4.20-5.40)
[2021-01-12 14:07] LABS: Anion Gap 13 mmol/L (10-20); BUN (Urea Nitrogen) 12 mg/dL (9.8-20.1); Calc. Creatinine Clearance 19 mL/min (70-130); Calcium 7.1 mg/dL (7.8-10.44); Carbon Dioxide 27 mmol/L (23-31); Chloride 101 mmol/L (98-107); Glucose 90 mg/dL (80-115); Sodium 137 mmol/L (136-145)
[2021-01-13] MEDS: cefOXitin Sodium 1 GM in Sodium Chloride 0.9% 100 ML IVPB SCH ×4 (01:00→17:35)
[2021-01-13] MEDS: Dextrose 5 %-0.45 % NaCl 1,000 ML IV SCH ×2 (05:05→21:59)
[2021-01-13] MEDS: Aspirin 81 mg Enteric Coated Tablet PO SCH (08:30)
[2021-01-13] MEDS: Amlodipine 10 MG TAB PO SCH (08:30)
[2021-01-13] MEDS: Clopidogrel Bisulfate 75 MG TAB PO SCH (08:30)
[2021-01-13] MEDS: Sevelamer Carbonate 800 MG TAB PO SCH (08:31)
[2021-01-13] MEDS: Enoxaparin Sodium 30 MG/0.3 ML SYRINGE SC SCH (08:31)
[2021-01-13] MEDS: Metoprolol Tartrate 25 MG TAB PO SCH (08:31)
[2021-01-13] MEDS: Morphine 2 MG/ML VIAL SLOW IVP PRN (09:33)
[2021-01-13] MEDS: EPOETIN ALFA-EPBX (ESRD) 4,000 UNIT/ML VIAL SC SCH (09:59)
[2021-01-13] MEDS ORDERED: MD-Gastroview 120 ML BOT ONE (10:19)
[2021-01-13] MEDS ORDERED: Hydrocortisone Acetate 25 MG Suppository PR PRN (13:37)
[2021-01-13] MEDS ORDERED: Lidocaine 1% w/Epinephrine 1:100K 20 ML VIAL ONE (13:49)
[2021-01-13] MEDS ORDERED: Bupivacaine 0.25% HCL 30 ML VIAL ONE (13:49)
[2021-01-13] MEDS ORDERED: ceFOXitin 1 GM VIAL ONE (13:59)
[2021-01-13] MEDS ORDERED: Sodium Chloride 0.9% 100 ML ONE (13:59)
[2021-01-13] MEDS ORDERED: Midazolam HCl 2 mg/2 ml Vial ONE (14:00)
[2021-01-13] MEDS ORDERED: Fentanyl 100 MCG/2 ML VIAL ONE (14:00)
[2021-01-13] MEDS ORDERED: Ondansetron PF 4 MG/2 ML Vial ONE (14:25)
[2021-01-13] MEDS ORDERED: PROPOFOL 200 MG/20 ML VIAL ONE (14:25)
[2021-01-13] MEDS ORDERED: PHENYLEPHRINE-NS 100 MCG/ML 10 ML SYRINGE ONE (14:25)
[2021-01-13] MEDS ORDERED: Glycopyrrolate 0.2 MG/ML 5 ML SYRINGE ONE (14:25)
[2021-01-13] MEDS ORDERED: Lidocaine 1% PF 5 ML VIAL ONE (14:25)
[2021-01-13] MEDS ORDERED: Rocuronium Bromide 10 MG/ML (10ML VIAL) ONE (14:25)
[2021-01-13] MEDS ORDERED: SUGAMMADEX SODIUM 200 MG/2 ML VIAL ONE (15:16)
[2021-01-13] MEDS ORDERED: Dextrose 50% Abboject 50 ML SYRINGE ONE (16:54)
[2021-01-13] MEDS: Ondansetron PF 4 MG/2 ML Vial IVP PRN (18:10)
[2021-01-13 18:39] LABS: Hemoglobin 8.7 g/dL (12.0-16.0); Mean Corpuscular HGB CONC 32.2 g/dL (32.0-36.0); Mean Corpuscular Hemoglobin 31.3 pg (27.0-31.0); Mean Corpuscular Volume 97.4 fL (78.0-98.0); Mean Platelet Volume 9.4 fL (7.4-10.4); Platelet Count 96 thou/uL (130-400); RBC Distribution Width 12.8 % (11.5-14.5); Red Blood Cell (RBC) Count 2.77 mill/uL (4.20-5.40); White Blood Cell (WBC) Count 13.1 thou/uL (4.8-10.8)
[2021-01-13 18:52] LABS: Anion Gap 13 mmol/L (10-20); BUN (Urea Nitrogen) 16 mg/dL (9.8-20.1); Calc. Creatinine Clearance 16 mL/min (70-130); Calcium 6.9 mg/dL (7.8-10.44); Carbon Dioxide 22 mmol/L (23-31); Chloride 104 mmol/L (98-107); Glucose 117 mg/dL (80-115); Potassium 3.9 mmol/L (3.5-5.1); Sodium 135 mmol/L (136-145)
[2021-01-14] MEDS: cefOXitin Sodium 1 GM in Sodium Chloride 0.9% 100 ML IVPB SCH ×4 (00:50→18:06)
[2021-01-14] MEDS: Metoprolol Tartrate 25 MG TAB PO SCH (08:16)
[2021-01-14] MEDS: Amlodipine 10 MG TAB PO SCH (08:16)
[2021-01-14] MEDS: Aspirin 81 mg Enteric Coated Tablet PO SCH (08:16)
[2021-01-14] MEDS: Clopidogrel Bisulfate 75 MG TAB PO SCH (08:16)
[2021-01-14] MEDS: Sevelamer Carbonate 800 MG TAB PO SCH (08:16)
[2021-01-14] MEDS ORDERED: Albumin 25% 25 GM/100 ML BOT IVPB SCH (08:45)
[2021-01-14 11:48] LABS: Hemoglobin 7.4 g/dL (12.0-16.0); Mean Corpuscular HGB CONC 32.8 g/dL (32.0-36.0); Mean Corpuscular Hemoglobin 31.7 pg (27.0-31.0); Mean Corpuscular Volume 96.8 fL (78.0-98.0); Mean Platelet Volume 9.6 fL (7.4-10.4); Platelet Count 68 thou/uL (130-400); RBC Distribution Width 12.9 % (11.5-14.5); Red Blood Cell (RBC) Count 2.32 mill/uL (4.20-5.40); White Blood Cell (WBC) Count 9.5 thou/uL (4.8-10.8)
[2021-01-14 12:09] LABS: Band 9 % (5-11); Eosinophils 1 % (0-10); Lymphocytes 19 % (21-51); MDiff Complete? YES; Monocytes 9 % (0-10); Neutrophil 62 % (42-75); Platelet Morphology Comment Appears Decreased; Polychromasia SLIGHT = 2-3 cells (100X) (0-2/hpf)
[2021-01-14 12:11] LABS: Anion Gap 10 mmol/L (10-20); BUN (Urea Nitrogen) 5 mg/dL (9.8-20.1); Calc. Creatinine Clearance 42 mL/min (70-130); Calcium 7.3 mg/dL (7.8-10.44); Carbon Dioxide 30 mmol/L (23-31); Chloride 103 mmol/L (98-107); Glucose 81 mg/dL (80-115); Potassium 3.2 mmol/L (3.5-5.1); Sodium 140 mmol/L (136-145)
[2021-01-14] MEDS ORDERED: Potassium Chloride 20 MEQ TAB PO SCH (12:30)
[2021-01-14] MEDS: Enoxaparin Sodium 30 MG/0.3 ML SYRINGE SC SCH (12:39)
[2021-01-14] MEDS: Dextrose 5 %-0.45 % NaCl 1,000 ML IV SCH ×2 (15:05→21:15)
[2021-01-14] MEDS: Morphine 2 MG/ML VIAL SLOW IVP PRN (15:10)
[2021-01-14] MEDS: Potassium Chloride 20 MEQ in Premix Bag 1 BAG IVPB SCH ×2 (15:12→16:52)
[2021-01-14] MEDS ORDERED: Multivitamins, Adult 10 ML, TRACE ELEMENT CONCENTRATE 1 ML in D15W-AA 5% w/o Lytes 2,00... IV SCH (22:00)
[2021-01-15] MEDS: cefOXitin Sodium 1 GM in Sodium Chloride 0.9% 100 ML IVPB SCH ×3 (00:19→12:22)
[2021-01-15] MEDS: Morphine 2 MG/ML VIAL SLOW IVP PRN ×3 (05:28→23:33)
[2021-01-15 06:24] LABS: Phosphorus Less than 1.0 mg/dL (2.3-4.7)
[2021-01-15 06:31] LABS: ALT (SGPT) Less than 7 U/L (8-55); AST (SGOT) 23 U/L (5-34); Albumin 1.6 g/dL (3.4-4.8); Alkaline Phosphatase 304 U/L (40-110); Anion Gap 10 mmol/L (10-20); BUN (Urea Nitrogen) 7 mg/dL (9.8-20.1); Bilirubin, Total 0.9 mg/dL (0.2-1.2); Calc. Creatinine Clearance 26 mL/min (70-130); Calcium 7.4 mg/dL (7.8-10.44); Carbon Dioxide 31 mmol/L (23-31); Chloride 102 mmol/L (98-107); Globulin 3.1 g/dL (2.4-3.5); Glucose 80 mg/dL (80-115); Magnesium 1.2 mg/dL (1.6-2.6); Potassium 4.2 mmol/L (3.5-5.1); Protein, Total 4.7 g/dL (5.8-8.1); Sodium 139 mmol/L (136-145)
[2021-01-15 07:05] LABS: Band 16 % (5-11); Hemoglobin 7.9 g/dL (12.0-16.0); Lymphocytes 15 % (21-51); MDiff Complete? YES; Mean Corpuscular HGB CONC 32.7 g/dL (32.0-36.0); Mean Corpuscular Hemoglobin 31.6 pg (27.0-31.0); Mean Corpuscular Volume 96.5 fL (78.0-98.0); Mean Platelet Volume 10.2 fL (7.4-10.4); Monocytes 3 % (0-10); Neutrophil 66 % (42-75); Platelet Count 63 thou/uL (130-400); Platelet Morphology Comment Appears Decreased; Red Blood Cell (RBC) Count 2.51 mill/uL (4.20-5.40); White Blood Cell (WBC) Count 10.8 thou/uL (4.8-10.8)
[2021-01-15] MEDS ORDERED: Electrolyte Replacement Protocol 1 EACH FS SCH (08:30)
[2021-01-15] MEDS: Amlodipine 10 MG TAB PO SCH (10:27)
[2021-01-15] MEDS: Metoprolol Tartrate 25 MG TAB PO SCH (10:28)
[2021-01-15] MEDS: Clopidogrel Bisulfate 75 MG TAB PO SCH (10:28)
[2021-01-15] MEDS: Aspirin 81 mg Enteric Coated Tablet PO SCH (10:28)
[2021-01-15] MEDS: Sevelamer Carbonate 800 MG TAB PO SCH (10:29)
[2021-01-15] MEDS: Enoxaparin Sodium 30 MG/0.3 ML SYRINGE SC SCH (10:39)
[2021-01-15] MEDS ORDERED: Multivitamins, Adult 10 ML, ZINC/COPPER/MANGANESE/SELENIUM 1 ML in D15W-AA 5% w/o Lytes... IV SCH (14:00)
[2021-01-15] MEDS ORDERED: Electrolyte Replacement Protocol 1 EACH FS PRN (14:11)
[2021-01-15] MEDS: Magnesium 2 GM/50 ML 2 GM in Premix Bag 1 BAG IVPB SCH ×2 (15:12→16:15)
[2021-01-15] MEDS: Piperacillin/Tazobactam 3.375 GM in Sodium Chloride 0.9% 100 ML IVPB SCH ×2 (15:17→21:21)
[2021-01-15] MEDS: Pantoprazole 40 MG VIAL IVP SCH (21:25)
[2021-01-16] MEDS ORDERED: Fleet Enema 133 ML BOT FS SCH (00:30)
[2021-01-16] MEDS: Piperacillin/Tazobactam 3.375 GM in Sodium Chloride 0.9% 100 ML IVPB SCH ×4 (04:00→20:52)
[2021-01-16 05:33] LABS: #Eosinphils 0.1 thou/uL (0.0-0.7); #Monocytes 0.3 thou/uL (0.11-0.59); #Neutrophils 8.7 thou/uL (1.40-6.50); %Eosinophils 0.8 % (0.0-10.0); %Neutrophils 78.3 % (42.0-75.0); Hemoglobin 7.1 g/dL (12.0-16.0); Mean Corpuscular HGB CONC 31.9 g/dL (32.0-36.0); Mean Corpuscular Volume 97.2 fL (78.0-98.0); Mean Platelet Volume 11.1 fL (7.4-10.4); Platelet Count 46 thou/uL (130-400); Red Blood Cell (RBC) Count 2.29 mill/uL (4.20-5.40); White Blood Cell (WBC) Count 11.1 thou/uL (4.8-10.8)
[2021-01-16 05:38] LABS: ALT (SGPT) Less than 7 U/L (8-55); AST (SGOT) 18 U/L (5-34); Albumin 1.5 g/dL (3.4-4.8); Alkaline Phosphatase 257 U/L (40-110); Anion Gap 9 mmol/L (10-20); BUN (Urea Nitrogen) 12 mg/dL (9.8-20.1); Bilirubin, Total 0.7 mg/dL (0.2-1.2); Calc. Creatinine Clearance 21 mL/min (70-130); Calcium 7.1 mg/dL (7.8-10.44); Carbon Dioxide 29 mmol/L (23-31); Chloride 101 mmol/L (98-107); Globulin 2.7 g/dL (2.4-3.5); Glucose 272 mg/dL (80-115); Potassium 3.5 mmol/L (3.5-5.1); Protein, Total 4.2 g/dL (5.8-8.1); Sodium 135 mmol/L (136-145)
[2021-01-16 05:54] LABS: Phosphorus Less than 1.0 mg/dL (2.3-4.7)
[2021-01-16] MEDS: Pantoprazole 40 MG VIAL IVP SCH ×2 (07:53→20:56)
[2021-01-16] MEDS: Amlodipine 10 MG TAB PO SCH (07:59)
[2021-01-16] MEDS: Metoprolol Tartrate 25 MG TAB PO SCH (08:00)
[2021-01-16] MEDS: Aspirin 81 mg Enteric Coated Tablet PO SCH (08:00)
[2021-01-16] MEDS: Clopidogrel Bisulfate 75 MG TAB PO SCH (08:00)
[2021-01-16] MEDS: Sevelamer Carbonate 800 MG TAB PO SCH (08:00)
[2021-01-16] MEDS ORDERED: Sodium Phosphate 30 MMOL in Sodium Chloride 0.9% 250 ML 250 ML IVPB SCH (09:30)
[2021-01-16] MEDS: Morphine 2 MG/ML VIAL SLOW IVP PRN ×3 (10:00→19:13)
[2021-01-16] MEDS: Multivitamins, Adult 10 ML, ZINC/COPPER/MANGANESE/SELENIUM 1 ML in D15W-AA 5% with Lyte... IV SCH (14:57)
[2021-01-16 19:42] LABS: HBSAg Index 0.31 S/CO (0-0.99); Hep B Surf Ag Non-Reactive S/CO (NonReactive)
[2021-01-17] MEDS: Piperacillin/Tazobactam 3.375 GM in Sodium Chloride 0.9% 100 ML IVPB SCH (05:34)
[2021-01-17 06:29] LABS: Hemoglobin 8.9 g/dL (12.0-16.0); Mean Corpuscular HGB CONC 31.9 g/dL (32.0-36.0); Mean Corpuscular Hemoglobin 29.4 pg (27.0-31.0); Mean Corpuscular Volume 92.3 fL (78.0-98.0); Mean Platelet Volume 12.9 fL (7.4-10.4); Platelet Count 34 thou/uL (130-400); RBC Distribution Width 15.8 % (11.5-14.5); Red Blood Cell (RBC) Count 3.04 mill/uL (4.20-5.40); White Blood Cell (WBC) Count 16.6 thou/uL (4.8-10.8)
[2021-01-17] MEDS: Morphine 2 MG/ML VIAL SLOW IVP PRN ×3 (06:48→23:22)
[2021-01-17 06:49] LABS: Anion Gap 10 mmol/L (10-20); BUN (Urea Nitrogen) 12 mg/dL (9.8-20.1); Calc. Creatinine Clearance 35 mL/min (70-130); Calcium 7.3 mg/dL (7.8-10.44); Carbon Dioxide 28 mmol/L (23-31); Chloride 100 mmol/L (98-107); Glucose 379 mg/dL (80-115); Potassium 3.8 mmol/L (3.5-5.1); Sodium 134 mmol/L (136-145)
[2021-01-17 06:53] LABS: Phosphorus Less than 1.0 mg/dL (2.3-4.7)
[2021-01-17] MEDS: Amlodipine 10 MG TAB PO SCH (09:25)
[2021-01-17] MEDS: Aspirin 81 mg Enteric Coated Tablet PO SCH (09:25)
[2021-01-17] MEDS: Metoprolol Tartrate 25 MG TAB PO SCH (09:25)
[2021-01-17] MEDS: Clopidogrel Bisulfate 75 MG TAB PO SCH (09:26)
[2021-01-17] MEDS: Pantoprazole 40 MG VIAL IVP SCH ×2 (09:27→20:13)
[2021-01-17] MEDS: MEROPENEM 1 GM/50 ML 1 GM in Premix Bag 1 BAG IVPB SCH ×2 (09:27→17:33)
[2021-01-17] MEDS ORDERED: Sodium Phosphate 30 MMOL in Sodium Chloride 0.9% 250 ML 250 ML IVPB SCH ×2 (12:15→21:00)
[2021-01-17] MEDS: HYDROcodone/Acetaminophen 7.5/325 mg Tablet PO PRN (13:27)
[2021-01-17] MEDS ORDERED: Dextrose 5% in Water 1,000 ML IV PRN (13:51)
[2021-01-17] MEDS ORDERED: Dextrose 50% Abboject 50 ML SYRINGE SLOW IVP PRN (13:51)
[2021-01-17] MEDS: Multivitamins, Adult 10 ML, ZINC/COPPER/MANGANESE/SELENIUM 1 ML in D15W-AA 5% with Lyte... IV SCH (14:44)
[2021-01-17] MEDS: HumaLOG 300 UNITS/3 ML VIAL SC PRN ×2 (15:55→21:20)
[2021-01-18] MEDS: MEROPENEM 1 GM/50 ML 1 GM in Premix Bag 1 BAG IVPB SCH ×3 (01:17→16:18)
[2021-01-18 04:01] LABS: Hemoglobin 8.7 g/dL (12.0-16.0); Mean Corpuscular HGB CONC 32.9 g/dL (32.0-36.0); Mean Corpuscular Hemoglobin 30.3 pg (27.0-31.0); Mean Platelet Volume 14.2 fL (7.4-10.4); Platelet Count 29 thou/uL (130-400); RBC Distribution Width 15.6 % (11.5-14.5); Red Blood Cell (RBC) Count 2.86 mill/uL (4.20-5.40); White Blood Cell (WBC) Count 16.2 thou/uL (4.8-10.8)
[2021-01-18 04:19] LABS: Anion Gap 16 mmol/L (10-20); BUN (Urea Nitrogen) 26 mg/dL (9.8-20.1); Calc. Creatinine Clearance 29 mL/min (70-130); Calcium 7.2 mg/dL (7.8-10.44); Carbon Dioxide 24 mmol/L (23-31); Chloride 99 mmol/L (98-107); Glucose 332 mg/dL (80-115); Phosphorus 4.7 mg/dL (2.3-4.7); Potassium 3.8 mmol/L (3.5-5.1); Sodium 135 mmol/L (136-145)
[2021-01-18] MEDS: HumaLOG 300 UNITS/3 ML VIAL SC PRN ×2 (05:55→17:57)
[2021-01-18] MEDS: Morphine 2 MG/ML VIAL SLOW IVP PRN ×2 (06:35→12:01)
[2021-01-18] MEDS: Aspirin 81 mg Enteric Coated Tablet PO SCH (13:46)
[2021-01-18] MEDS: Amlodipine 10 MG TAB PO SCH (13:46)
[2021-01-18] MEDS: Metoprolol Tartrate 25 MG TAB PO SCH (13:46)
[2021-01-18] MEDS: Clopidogrel Bisulfate 75 MG TAB PO SCH (13:46)
[2021-01-18] MEDS: Pantoprazole 40 MG VIAL IVP SCH ×2 (13:47→20:23)
[2021-01-18] MEDS: Multivitamins, Adult 10 ML, ZINC/COPPER/MANGANESE/SELENIUM 1 ML in D15W-AA 5% with Lyte... IV SCH (15:04)
[2021-01-18] MEDS ORDERED: HumaLOG 300 UNITS/3 ML VIAL SC PRN (20:44)
[2021-01-18 21:53] LABS: Anion Gap 13 mmol/L (10-20); BUN (Urea Nitrogen) 17 mg/dL (9.8-20.1); Calc. Creatinine Clearance 43 mL/min (70-130); Calcium 7.3 mg/dL (7.8-10.44); Carbon Dioxide 28 mmol/L (23-31); Chloride 99 mmol/L (98-107); Glucose 290 mg/dL (80-115); Potassium 4.6 mmol/L (3.5-5.1); Sodium 135 mmol/L (136-145)
[2021-01-18] MEDS ORDERED: Calcium Gluconate 4.6 MEQ in Sodium Chloride 0.9% 100 ML IVPB SCH (22:30)
[2021-01-19] MEDS: MEROPENEM 1 GM/50 ML 1 GM in Premix Bag 1 BAG IVPB SCH ×3 (00:54→17:40)
[2021-01-19] MEDS: Morphine 2 MG/ML VIAL SLOW IVP PRN ×6 (02:00→22:50)
[2021-01-19 05:26] LABS: Mean Corpuscular HGB CONC 32.2 g/dL (32.0-36.0); Mean Corpuscular Hemoglobin 29.6 pg (27.0-31.0); Mean Corpuscular Volume 91.9 fL (78.0-98.0); Mean Platelet Volume 14.2 fL (7.4-10.4); Platelet Count 36 thou/uL (130-400); RBC Distribution Width 15.3 % (11.5-14.5); Red Blood Cell (RBC) Count 2.69 mill/uL (4.20-5.40); White Blood Cell (WBC) Count 13.4 thou/uL (4.8-10.8)
[2021-01-19] MEDS: HumaLOG 300 UNITS/3 ML VIAL SC PRN ×3 (05:28→17:40)
[2021-01-19 05:42] LABS: ALT (SGPT) 11 U/L (8-55); AST (SGOT) 38 U/L (5-34); Albumin 1.6 g/dL (3.4-4.8); Alkaline Phosphatase 676 U/L (40-110); Anion Gap 9 mmol/L (10-20); BUN (Urea Nitrogen) 23 mg/dL (9.8-20.1); Bilirubin, Total 0.7 mg/dL (0.2-1.2); Calc. Creatinine Clearance 38 mL/min (70-130); Calcium 7.4 mg/dL (7.8-10.44); Carbon Dioxide 33 mmol/L (23-31); Chloride 99 mmol/L (98-107); Globulin 3.2 g/dL (2.4-3.5); Glucose 288 mg/dL (80-115); Magnesium 1.8 mg/dL (1.6-2.6); Potassium 4.4 mmol/L (3.5-5.1); Protein, Total 4.8 g/dL (5.8-8.1); Sodium 137 mmol/L (136-145)
[2021-01-19 05:52] LABS: Band 12 % (5-11); Lymphocytes 8 % (21-51); MDiff Complete? YES; Metamyelocyte 1 % (0-0); Monocytes 11 % (0-10); Neutrophil 68 % (42-75); Platelet Morphology Comment Appears Decreased
[2021-01-19] MEDS: Clopidogrel Bisulfate 75 MG TAB PO SCH (08:19)
[2021-01-19] MEDS: Metoprolol Tartrate 25 MG TAB PO SCH (08:19)
[2021-01-19] MEDS: Aspirin 81 mg Enteric Coated Tablet PO SCH (08:19)
[2021-01-19] MEDS: Pantoprazole 40 MG VIAL IVP SCH ×2 (08:19→21:31)
[2021-01-19] MEDS: Amlodipine 10 MG TAB PO SCH (08:19)
[2021-01-19] MEDS: Multivitamins, Adult 10 ML, ZINC/COPPER/MANGANESE/SELENIUM 1 ML in D15W-AA 5% with Lyte... IV SCH (14:45)
[2021-01-19 16:27] LABS: Lactic Acid 0.7 mmol/L (0.5-2.2)
[2021-01-20] MEDS: MEROPENEM 1 GM/50 ML 1 GM in Premix Bag 1 BAG IVPB SCH ×2 (01:50→08:10)
[2021-01-20] MEDS: HumaLOG 300 UNITS/3 ML VIAL SC PRN ×2 (04:45→14:05)
[2021-01-20] MEDS: Morphine 2 MG/ML VIAL SLOW IVP PRN (05:12)
[2021-01-20 05:44] LABS: Hemoglobin 8.6 g/dL (12.0-16.0); Hypochromia SLIGHT = 6-15 cells (100X) (0-5/hpf); Lymphocytes 19 % (21-51); MDiff Complete? YES; Mean Corpuscular HGB CONC 32.5 g/dL (32.0-36.0); Mean Corpuscular Volume 92.2 fL (78.0-98.0); Mean Platelet Volume 13.3 fL (7.4-10.4); Monocytes 4 % (0-10); Neutrophil 77 % (42-75); Platelet Count 55 thou/uL (130-400); Platelet Morphology Comment Appears Decreased; RBC Distribution Width 15.1 % (11.5-14.5); Red Blood Cell (RBC) Count 2.87 mill/uL (4.20-5.40); White Blood Cell (WBC) Count 15.1 thou/uL (4.8-10.8)
[2021-01-20 05:54] LABS: Anion Gap 12 mmol/L (10-20); BUN (Urea Nitrogen) 42 mg/dL (9.8-20.1); Calc. Creatinine Clearance 28 mL/min (70-130); Calcium 7.6 mg/dL (7.8-10.44); Carbon Dioxide 29 mmol/L (23-31); Chloride 97 mmol/L (98-107); Glucose 323 mg/dL (80-115); Phosphorus 4.1 mg/dL (2.3-4.7); Sodium 133 mmol/L (136-145)
[2021-01-20] MEDS: EPOETIN ALFA-EPBX (ESRD) 4,000 UNIT/ML VIAL SC SCH (08:09)
[2021-01-20] MEDS: Pantoprazole 40 MG VIAL IVP SCH (08:11)
[2021-01-20] MEDS ORDERED: Calcium Gluc 4.6 MEQ/10 ML (100 MG/ML) SLOW IVP SCH (09:11)
[2021-01-20] MEDS: Amlodipine 10 MG TAB PO SCH ×2 (10:51→13:52)
[2021-01-20] MEDS: Metoprolol Tartrate 25 MG TAB PO SCH ×2 (10:52→13:52)
[2021-01-20] MEDS ORDERED: Permethrin 5% Cream 60 GM TUBE TOP SCH (11:15)
[2021-01-20] MEDS: Multivitamins, Adult 10 ML, ZINC/COPPER/MANGANESE/SELENIUM 1 ML in D15W-AA 5% with Lyte... IV SCH (14:16)
[2021-01-20] MEDS ORDERED: Polyethylene Glycol 3350 17 GM Packet PO SCH (15:15)
[2021-01-21] MEDS: HumaLOG 300 UNITS/3 ML VIAL SC PRN ×4 (03:16→16:48)
[2021-01-21] MEDS: Morphine 2 MG/ML VIAL SLOW IVP PRN (05:33)
[2021-01-21 05:56] LABS: Hemoglobin 8.2 g/dL (12.0-16.0); Mean Corpuscular HGB CONC 32.2 g/dL (32.0-36.0); Mean Corpuscular Hemoglobin 29.4 pg (27.0-31.0); Mean Corpuscular Volume 91.5 fL (78.0-98.0); Platelet Count 96 thou/uL (130-400); RBC Distribution Width 15.6 % (11.5-14.5)
[2021-01-21 06:12] LABS: Band 3 % (5-11); Eosinophils 1 % (0-10); Lymphocytes 20 % (21-51); MDiff Complete? YES; Metamyelocyte 1 % (0-0); Monocytes 8 % (0-10); Neutrophil 66 % (42-75); Nucleated RBC 1 % (0); Platelet Morphology Comment Appears Decreased
[2021-01-21 06:16] LABS: Anion Gap 10 mmol/L (10-20); BUN (Urea Nitrogen) 37 mg/dL (9.8-20.1); Calc. Creatinine Clearance 38 mL/min (70-130); Calcium 7.5 mg/dL (7.8-10.44); Carbon Dioxide 30 mmol/L (23-31); Chloride 99 mmol/L (98-107); Glucose 327 mg/dL (80-115); Potassium 4.1 mmol/L (3.5-5.1); Sodium 135 mmol/L (136-145)
[2021-01-21] MEDS: Metoprolol Tartrate 25 MG TAB PO SCH (08:48)
[2021-01-21] MEDS: Amlodipine 10 MG TAB PO SCH (08:48)
[2021-01-21] MEDS: Pantoprazole 40 MG GRANULES PACKET PO SCH (08:48)
[2021-01-21] MEDS: Polyethylene Glycol 3350 17 GM Packet PO SCH (08:49)
[2021-01-21] MEDS: Permethrin 5% Cream 60 GM TUBE TOP SCH (10:57)
[2021-01-21] MEDS: HYDROcodone/Acetaminophen 5/325 mg Tablet PO PRN ×2 (14:26→21:41)
[2021-01-21] MEDS: Multivitamins, Adult 10 ML, ZINC/COPPER/MANGANESE/SELENIUM 1 ML in D15W-AA 5% with Lyte... IV SCH (14:27)
[2021-01-22] MEDS: HYDROcodone/Acetaminophen 5/325 mg Tablet PO PRN ×4 (03:42→21:16)
[2021-01-22 06:09] LABS: Band 3 % (5-11); Hemoglobin 8.3 g/dL (12.0-16.0); Hypochromia SLIGHT = 6-15 cells (100X) (0-5/hpf); Lymphocytes 22 % (21-51); MDiff Complete? YES; Mean Corpuscular HGB CONC 32.3 g/dL (32.0-36.0); Mean Corpuscular Hemoglobin 29.3 pg (27.0-31.0); Mean Platelet Volume 11.2 fL (7.4-10.4); Monocytes 2 % (0-10); Neutrophil 73 % (42-75); Platelet Count 152 thou/uL (130-400); Platelet Morphology Comment Appears Adequate; RBC Distribution Width 15.9 % (11.5-14.5); Red Blood Cell (RBC) Count 2.84 mill/uL (4.20-5.40); White Blood Cell (WBC) Count 16.2 thou/uL (4.8-10.8)
[2021-01-22 06:11] LABS: Phosphorus 4.4 mg/dL (2.3-4.7)
[2021-01-22 06:13] LABS: ALT (SGPT) 18 U/L (8-55); AST (SGOT) 66 U/L (5-34); Albumin 1.5 g/dL (3.4-4.8); Alkaline Phosphatase 1520 U/L (40-110); Anion Gap 11 mmol/L (10-20); BUN (Urea Nitrogen) 57 mg/dL (9.8-20.1); Bilirubin, Total 0.5 mg/dL (0.2-1.2); Calc. Creatinine Clearance 29 mL/min (70-130); Calcium 7.4 mg/dL (7.8-10.44); Carbon Dioxide 27 mmol/L (23-31); Chloride 96 mmol/L (98-107); Globulin 3.3 g/dL (2.4-3.5); Glucose 324 mg/dL (80-115); Magnesium 1.7 mg/dL (1.6-2.6); Potassium 4.4 mmol/L (3.5-5.1); Protein, Total 4.8 g/dL (5.8-8.1); Sodium 130 mmol/L (136-145)
[2021-01-22] MEDS: HumaLOG 300 UNITS/3 ML VIAL SC PRN ×2 (06:16→12:53)
[2021-01-22] MEDS: Metoprolol Tartrate 25 MG TAB PO SCH (08:23)
[2021-01-22] MEDS: Amlodipine 10 MG TAB PO SCH (08:23)
[2021-01-22] MEDS: Pantoprazole 40 MG GRANULES PACKET PO SCH (08:23)
[2021-01-22] MEDS: Polyethylene Glycol 3350 17 GM Packet PO SCH (08:23)
[2021-01-22] MEDS: Permethrin 5% Cream 60 GM TUBE TOP SCH (09:59)
[2021-01-22 11:29] LABS: ALT (SGPT) 23 U/L (8-55); AST (SGOT) 90 U/L (5-34); Albumin 1.4 g/dL (3.4-4.8); Alkaline Phosphatase 1810 U/L (40-110); Bilirubin, Direct 0.1 mg/dL (0.1-0.3); Bilirubin, Total 0.5 mg/dL (0.2-1.2); Protein, Total 5.3 g/dL (5.8-8.1)
[2021-01-22] MEDS ORDERED: Dextrose 50% Abboject 50 ML SYRINGE SLOW IVP PRN (11:30)
[2021-01-22] MEDS ORDERED: Dextrose 5% in Water 1,000 ML IV PRN (11:30)
[2021-01-22] MEDS ORDERED: Iopamidol-370 76% 500 ML 1 ML ONE (12:15)
[2021-01-22] MEDS: Dronabinol 2.5 MG CAP PO SCH (16:30)
[2021-01-23] MEDS: HYDROcodone/Acetaminophen 5/325 mg Tablet PO PRN ×2 (01:33→12:15)
[2021-01-23 05:43] LABS: Anion Gap 11 mmol/L (10-20); BUN (Urea Nitrogen) 68 mg/dL (9.8-20.1); Calc. Creatinine Clearance 24 mL/min (70-130); Calcium 6.8 mg/dL (7.8-10.44); Carbon Dioxide 26 mmol/L (23-31); Chloride 95 mmol/L (98-107); Glucose 115 mg/dL (80-115); Potassium 4.3 mmol/L (3.5-5.1); Sodium 128 mmol/L (136-145)
[2021-01-23 05:53] LABS: Eosinophils 1 % (0-10); Lymphocytes 14 % (21-51); MDiff Complete? YES; Mean Corpuscular HGB CONC 33.5 g/dL (32.0-36.0); Mean Corpuscular Hemoglobin 30.4 pg (27.0-31.0); Mean Corpuscular Volume 90.8 fL (78.0-98.0); Mean Platelet Volume 10.3 fL (7.4-10.4); Monocytes 1 % (0-10); Neutrophil 84 % (42-75); Platelet Count 210 thou/uL (130-400); Platelet Morphology Comment Appears Adequate; RBC Distribution Width 16.5 % (11.5-14.5); Red Blood Cell (RBC) Count 2.62 mill/uL (4.20-5.40); White Blood Cell (WBC) Count 24.8 thou/uL (4.8-10.8)
[2021-01-23] MEDS: Amlodipine 10 MG TAB PO SCH (08:04)
[2021-01-23] MEDS: Metoprolol Tartrate 25 MG TAB PO SCH (08:05)
[2021-01-23 09:41] LABS: Lactic Acid 0.9 mmol/L (0.5-2.2)
[2021-01-23 09:46] LABS: ALT (SGPT) 14 U/L (8-55); AST (SGOT) 66 U/L (5-34); Albumin 1.6 g/dL (3.4-4.8); Alkaline Phosphatase 1414 U/L (40-110); Bilirubin, Direct 0.3 mg/dL (0.1-0.3); Bilirubin, Total 0.4 mg/dL (0.2-1.2); Protein, Total 4.9 g/dL (5.8-8.1)
[2021-01-23] MEDS: Polyethylene Glycol 3350 17 GM Packet PO SCH (11:02)
[2021-01-23] MEDS: Pantoprazole 40 MG GRANULES PACKET PO SCH (11:02)
[2021-01-23] MEDS: Dronabinol 2.5 MG CAP PO SCH ×2 (11:02→17:12)
[2021-01-23] MEDS: Sodium Chloride 0.9% 1,000 ML IV SCH (12:13)
[2021-01-23] MEDS: Meropenem 2 GM in Sodium Chloride 0.9% 100 ML IVPB SCH ×2 (12:26→20:09)
[2021-01-23] MEDS ORDERED: Lidocaine 2% w/Epinephrine 1:200K 20 ML VIAL ONE (19:28)
[2021-01-23] MEDS ORDERED: Bupivacaine 0.25% HCL 30 ML VIAL ONE (19:28)
[2021-01-23] MEDS ORDERED: Fentanyl 100 MCG/2 ML VIAL ONE ×3 (19:29→23:20)
[2021-01-23] MEDS ORDERED: Ondansetron PF 4 MG/2 ML Vial ONE (21:05)
[2021-01-23] MEDS ORDERED: Rocuronium Bromide 10 MG/ML (10ML VIAL) ONE (21:05)
[2021-01-23] MEDS ORDERED: PROPOFOL 200 MG/20 ML VIAL ONE (21:05)
[2021-01-23] MEDS ORDERED: PHENYLEPHRINE-NS 100 MCG/ML 10 ML SYRINGE ONE (21:05)
[2021-01-23] MEDS ORDERED: Lidocaine 1% PF 5 ML VIAL ONE (21:05)
[2021-01-23] MEDS ORDERED: Succinylcholine 200 MG/10 ml SYRINGE FS ONE (21:05)
[2021-01-23] MEDS ORDERED: SUGAMMADEX SODIUM 200 MG/2 ML VIAL ONE (22:06)
[2021-01-23] MEDS ORDERED: Promethazine HCl 25 MG/ML VIAL SLOW IVP PRN (22:32)
[2021-01-23] MEDS ORDERED: Promethazine HCl 25 MG/ML VIAL IM PRN ×2 (22:32→23:33)
[2021-01-23] MEDS ORDERED: Ondansetron HCl/PF 4 MG/2 ML Vial IVP PRN (22:32)
[2021-01-23] MEDS ORDERED: Dextrose 50% Abboject 50 ML SYRINGE ONE (22:50)
[2021-01-23] MEDS ORDERED: Morphine 2 MG/ML VIAL SLOW IVP PRN (23:17)
[2021-01-23] MEDS ORDERED: Morphine 4 MG/ML VIAL SLOW IVP PRN (23:17)
[2021-01-23] MEDS ORDERED: diphenhydrAMINE 50 MG/ML VIAL IM PRN (23:33)
[2021-01-23] MEDS ORDERED: Naloxone HCl 0.4 mg/ml Vial IV PRN (23:33)
[2021-01-23] MEDS ORDERED: Communication Order-Pharmacy FS SCH (23:45)
[2021-01-24] MEDS: Sodium Chloride 0.9% 1,000 ML IV SCH (05:56)
[2021-01-24 06:14] LABS: Hemoglobin 7.3 g/dL (12.0-16.0); Mean Corpuscular HGB CONC 32.1 g/dL (32.0-36.0); Mean Corpuscular Hemoglobin 29.7 pg (27.0-31.0); Mean Corpuscular Volume 92.3 fL (78.0-98.0); Mean Platelet Volume 9.5 fL (7.4-10.4); Platelet Count 289 thou/uL (130-400); RBC Distribution Width 16.7 % (11.5-14.5); Red Blood Cell (RBC) Count 2.47 mill/uL (4.20-5.40); White Blood Cell (WBC) Count 31.6 thou/uL (4.8-10.8)
[2021-01-24 06:30] LABS: Anion Gap 13 mmol/L (10-20); BUN (Urea Nitrogen) 43 mg/dL (9.8-20.1); Calc. Creatinine Clearance 29 mL/min (70-130); Calcium 6.9 mg/dL (7.8-10.44); Carbon Dioxide 26 mmol/L (23-31); Chloride 100 mmol/L (98-107); Glucose 88 mg/dL (80-115); Sodium 135 mmol/L (136-145)
[2021-01-24 06:34] LABS: Band 12 % (5-11); Lymphocytes 6 % (21-51); MDiff Complete? YES; Monocytes 3 % (0-10); Neutrophil 78 % (42-75)
[2021-01-24] MEDS: Amlodipine 10 MG TAB PO SCH (10:22)
[2021-01-24] MEDS: Metoprolol Tartrate 25 MG TAB PO SCH (10:22)
[2021-01-24] MEDS: Polyethylene Glycol 3350 17 GM Packet PO SCH (11:55)
[2021-01-24] MEDS: Pantoprazole 40 MG GRANULES PACKET PO SCH (11:56)
[2021-01-24] MEDS: Dronabinol 2.5 MG CAP PO SCH ×2 (13:31→16:39)
[2021-01-24] MEDS: Meropenem 2 GM in Sodium Chloride 0.9% 100 ML IVPB SCH ×2 (13:32→20:56)
[2021-01-24 15:00] LABS: Anisocytosis SLIGHT = 6-15 cells (100X) (0-5/hpf); Band 30 % (5-11); Hemoglobin 6.9 g/dL (12.0-16.0); Hypochromia SLIGHT = 6-15 cells (100X) (0-5/hpf); Lymphocytes 5 % (21-51); MDiff Complete? YES; Mean Corpuscular HGB CONC 32.7 g/dL (32.0-36.0); Mean Corpuscular Hemoglobin 30.4 pg (27.0-31.0); Mean Corpuscular Volume 93.1 fL (78.0-98.0); Mean Platelet Volume 9.1 fL (7.4-10.4); Monocytes 4 % (0-10); Neutrophil 58 % (42-75); Platelet Count 310 thou/uL (130-400); Platelet Morphology Comment Appears Adequate; Polychromasia MODERATE = 3-4 cells (100X) (0-2/hpf); Reactive Lymphocytes 3 % (0-10); Red Blood Cell (RBC) Count 2.26 mill/uL (4.20-5.40); Stomatocytes SLIGHT = 2-5 cells (100X) (0-1/hpf); White Blood Cell (WBC) Count 31.1 thou/uL (4.8-10.8)
[2021-01-25] MEDS: Sodium Chloride 0.9% 1,000 ML IV SCH (02:36)
[2021-01-25] MEDS: fentaNYL Citrate/PF 2,000 MCG in Sodium Chloride 0.9% 60 ML IV PRN (03:23)
[2021-01-25 06:22] LABS: Hemoglobin 9.2 g/dL (12.0-16.0); Mean Corpuscular HGB CONC 32.7 g/dL (32.0-36.0); Mean Corpuscular Hemoglobin 30.5 pg (27.0-31.0); Mean Corpuscular Volume 93.4 fL (78.0-98.0); Mean Platelet Volume 8.6 fL (7.4-10.4); Platelet Count 321 thou/uL (130-400); RBC Distribution Width 16.3 % (11.5-14.5); Red Blood Cell (RBC) Count 3.03 mill/uL (4.20-5.40); White Blood Cell (WBC) Count 26.3 thou/uL (4.8-10.8)
[2021-01-25 06:34] LABS: Anion Gap 10 mmol/L (10-20); BUN (Urea Nitrogen) 26 mg/dL (9.8-20.1); Calc. Creatinine Clearance 33 mL/min (70-130); Calcium 6.6 mg/dL (7.8-10.44); Carbon Dioxide 29 mmol/L (23-31); Chloride 101 mmol/L (98-107); Glucose 72 mg/dL (80-115); Potassium 3.2 mmol/L (3.5-5.1); Sodium 137 mmol/L (136-145)
[2021-01-25 06:46] LABS: Band 7 % (5-11); Eosinophils 1 % (0-10); Lymphocytes 9 % (21-51); MDiff Complete? YES; Monocytes 2 % (0-10); Neutrophil 81 % (42-75)
[2021-01-25] MEDS: Amlodipine 10 MG TAB PO SCH (08:15)
[2021-01-25] MEDS: Polyethylene Glycol 3350 17 GM Packet PO SCH (08:15)
[2021-01-25] MEDS: Metoprolol Tartrate 25 MG TAB PO SCH (08:15)
[2021-01-25] MEDS: Pantoprazole 40 MG GRANULES PACKET PO SCH (08:15)
[2021-01-25] MEDS: Dronabinol 2.5 MG CAP PO SCH ×2 (11:15→11:44)
[2021-01-25] MEDS: Meropenem 2 GM in Sodium Chloride 0.9% 100 ML IVPB SCH (11:44)
[2021-01-25] MEDS ORDERED: Pharmacy to MANAGE TPN ELECTROLYTES IVPB PRN (13:43)
[2021-01-25] MEDS: Multivitamins, Adult 10 ML, TRACE ELEMENT CONCENTRATE 1 ML in D15W-AA 5% with Lytes 2,0... IV SCH (22:37)
[2021-01-26 05:59] LABS: Phosphorus 5.1 mg/dL (2.3-4.7)
[2021-01-26 06:00] LABS: Anion Gap 15 mmol/L (10-20); BUN (Urea Nitrogen) 30 mg/dL (9.8-20.1); Calc. Creatinine Clearance 26 mL/min (70-130); Calcium 6.9 mg/dL (7.8-10.44); Carbon Dioxide 24 mmol/L (23-31); Chloride 101 mmol/L (98-107); Glucose 112 mg/dL (80-115); Sodium 137 mmol/L (136-145)
[2021-01-26 07:51] LABS: Anisocytosis MODERATE=16-30 cells (100X) (0-5/hpf); Band 9 % (5-11); Eosinophils 1 % (0-10); Hemoglobin 8.2 g/dL (12.0-16.0); Lymphocytes 10 % (21-51); MDiff Complete? YES; Mean Corpuscular HGB CONC 31.8 g/dL (32.0-36.0); Mean Corpuscular Hemoglobin 29.9 pg (27.0-31.0); Mean Corpuscular Volume 94.1 fL (78.0-98.0); Mean Platelet Volume 8.1 fL (7.4-10.4); Monocytes 3 % (0-10); Neutrophil 77 % (42-75); Platelet Count 462 thou/uL (130-400); Polychromasia SLIGHT = 2-3 cells (100X) (0-2/hpf); RBC Distribution Width 16.1 % (11.5-14.5); Red Blood Cell (RBC) Count 2.75 mill/uL (4.20-5.40); White Blood Cell (WBC) Count 28.9 thou/uL (4.8-10.8)
[2021-01-26] MEDS: Amlodipine 5 MG TAB PO SCH (08:44)
[2021-01-26] MEDS: Pantoprazole 40 MG GRANULES PACKET PO SCH (08:44)
[2021-01-26] MEDS: Polyethylene Glycol 3350 17 GM Packet PO SCH (08:45)
[2021-01-26] MEDS: Metoprolol Tartrate 25 MG TAB PO SCH (08:45)
[2021-01-26] MEDS: Folic Acid 1 MG TAB PO SCH (08:45)
[2021-01-26] MEDS: Cyanocobalamin (Vitamin B-12) 1,000 MCG TAB PO SCH (08:45)
[2021-01-26] MEDS: Dronabinol 2.5 MG CAP PO SCH ×2 (08:46→16:17)
[2021-01-26] MEDS ORDERED: Potassium Chloride 20 MEQ/100 ML PREMIX BAG IVPB SCH (09:00)
[2021-01-26] MEDS ORDERED: Potassium Chloride 20 MEQ in Premix Bag 1 BAG IVPB SCH (09:15)
[2021-01-26] MEDS ORDERED: Potassium Chloride 20 MEQ TAB PO SCH (10:00)
[2021-01-26] MEDS: fentaNYL Citrate/PF 2,000 MCG in Sodium Chloride 0.9% 60 ML IV PRN (12:50)
[2021-01-26] MEDS: Meropenem 500 MG in Sodium Chloride 0.9% 100 ML IVPB SCH (16:16)
[2021-01-26] MEDS: Magnesium Chloride 64 MG TAB PO SCH (20:54)
[2021-01-26] MEDS: Multivitamins, Adult 10 ML, TRACE ELEMENT CONCENTRATE 1 ML in D15W-AA 5% with Lytes 2,0... IV SCH (22:56)
[2021-01-27 05:49] LABS: Anion Gap 16 mmol/L (10-20); BUN (Urea Nitrogen) 36 mg/dL (9.8-20.1); Calc. Creatinine Clearance 22 mL/min (70-130); Calcium 6.5 mg/dL (7.8-10.44); Carbon Dioxide 21 mmol/L (23-31); Chloride 101 mmol/L (98-107); Glucose 146 mg/dL (80-115); Sodium 135 mmol/L (136-145)
[2021-01-27 05:55] LABS: Potassium 2.8 mmol/L (3.5-5.1)
[2021-01-27] MEDS ORDERED: Potassium Chloride 20 MEQ TAB PO SCH (06:15)
[2021-01-27 06:22] LABS: #Eosinphils 0.1 thou/uL (0.0-0.7); #Lymphocytes 2.3 thou/uL (1.20-3.40); #Monocytes 1.6 thou/uL (0.11-0.59); #Neutrophils 19.4 thou/uL (1.40-6.50); %Basophils 0.1 % (0.0-1.0); %Eosinophils 0.2 % (0.0-10.0); %Lymphocytes 9.9 % (21.0-51.0); %Monocytes 6.7 % (0.0-10.0); Hemoglobin 7.5 g/dL (12.0-16.0); Mean Corpuscular HGB CONC 31.1 g/dL (32.0-36.0); Mean Corpuscular Hemoglobin 29.2 pg (27.0-31.0); Mean Corpuscular Volume 94.1 fL (78.0-98.0); Mean Platelet Volume 7.5 fL (7.4-10.4); Platelet Count 479 thou/uL (130-400); RBC Distribution Width 15.6 % (11.5-14.5); Red Blood Cell (RBC) Count 2.57 mill/uL (4.20-5.40); White Blood Cell (WBC) Count 23.4 thou/uL (4.8-10.8)
[2021-01-27] MEDS: Dronabinol 2.5 MG CAP PO SCH ×2 (14:10→17:15)
[2021-01-27] MEDS: Magnesium Chloride 64 MG TAB PO SCH (14:10)
[2021-01-27] MEDS: Amlodipine 5 MG TAB PO SCH (14:19)
[2021-01-27] MEDS: Cyanocobalamin (Vitamin B-12) 1,000 MCG TAB PO SCH (14:20)
[2021-01-27] MEDS: Metoprolol Tartrate 25 MG TAB PO SCH ×3 (14:20→20:07)
[2021-01-27] MEDS: Folic Acid 1 MG TAB PO SCH (14:20)
[2021-01-27] MEDS: EPOETIN ALFA-EPBX (ESRD) 4,000 UNIT/ML VIAL SC SCH (14:21)
[2021-01-27] MEDS: Pantoprazole 40 MG GRANULES PACKET PO SCH (14:21)
[2021-01-27] MEDS: Polyethylene Glycol 3350 17 GM Packet PO SCH (14:21)
[2021-01-27] MEDS: Meropenem 500 MG in Sodium Chloride 0.9% 100 ML IVPB SCH (14:25)
[2021-01-27] MEDS: HumaLOG 300 UNITS/3 ML VIAL SC PRN (17:18)
[2021-01-27] MEDS: Multivitamins, Adult 10 ML, TRACE ELEMENT CONCENTRATE 1 ML in D15W-AA 5% with Lytes 2,0... IV SCH (22:25)
[2021-01-27] MEDS: fentaNYL Citrate/PF 2,000 MCG in Sodium Chloride 0.9% 60 ML IV PRN (23:01)
[2021-01-28 06:48] LABS: Mean Corpuscular HGB CONC 32.6 g/dL (32.0-36.0); Mean Corpuscular Hemoglobin 30.8 pg (27.0-31.0); Mean Corpuscular Volume 94.5 fL (78.0-98.0); Mean Platelet Volume 7.5 fL (7.4-10.4); Platelet Count 524 thou/uL (130-400); RBC Distribution Width 15.7 % (11.5-14.5); Red Blood Cell (RBC) Count 2.58 mill/uL (4.20-5.40)
[2021-01-28 06:57] LABS: ALT (SGPT) Less than 7 U/L (8-55); AST (SGOT) 33 U/L (5-34); Albumin 1.5 g/dL (3.4-4.8); Alkaline Phosphatase 896 U/L (40-110); Anion Gap 13 mmol/L (10-20); BUN (Urea Nitrogen) 20 mg/dL (9.8-20.1); Bilirubin, Total 0.4 mg/dL (0.2-1.2); Calc. Creatinine Clearance 33 mL/min (70-130); Calcium 6.7 mg/dL (7.8-10.44); Carbon Dioxide 25 mmol/L (23-31); Chloride 101 mmol/L (98-107); Globulin 3.5 g/dL (2.4-3.5); Glucose 162 mg/dL (80-115); Phosphorus 3.5 mg/dL (2.3-4.7); Potassium 3.1 mmol/L (3.5-5.1); Sodium 136 mmol/L (136-145)
[2021-01-28] MEDS ORDERED: Potassium Chloride 20 MEQ in Premix Bag 1 BAG IVPB SCH (08:00)
[2021-01-28] MEDS: Pantoprazole 40 MG GRANULES PACKET PO SCH (08:45)
[2021-01-28] MEDS: Folic Acid 1 MG TAB PO SCH (08:45)
[2021-01-28] MEDS: Cyanocobalamin (Vitamin B-12) 1,000 MCG TAB PO SCH (08:45)
[2021-01-28] MEDS: Metoprolol Tartrate 25 MG TAB PO SCH ×2 (08:46→21:12)
[2021-01-28] MEDS: Polyethylene Glycol 3350 17 GM Packet PO SCH (08:46)
[2021-01-28] MEDS: Dronabinol 2.5 MG CAP PO SCH ×2 (08:48→17:19)
[2021-01-28 09:44] LABS: Band 3 % (5-11); Eosinophils 1 % (0-10); Lymphocytes 18 % (21-51); MDiff Complete? YES; Monocytes 2 % (0-10); Neutrophil 74 % (42-75); Platelet Morphology Comment Appears Increased; Polychromasia SLIGHT = 2-3 cells (100X) (0-2/hpf); Reactive Lymphocytes 2 % (0-10)
[2021-01-28] MEDS: HumaLOG 300 UNITS/3 ML VIAL SC PRN (12:42)
[2021-01-28] MEDS: Meropenem 500 MG in Sodium Chloride 0.9% 100 ML IVPB SCH (15:11)
[2021-01-28] MEDS: Multivitamins, Adult 10 ML, TRACE ELEMENT CONCENTRATE 1 ML in D15W-AA 5% with Lytes 2,0... IV SCH (21:43)
[2021-01-28] MEDS: Linezolid 600 MG in Premix Bag 1 BAG IVPB SCH (21:43)
[2021-01-29] MEDS: fentaNYL Citrate/PF 2,000 MCG in Sodium Chloride 0.9% 60 ML IV PRN (01:32)
[2021-01-29 05:22] LABS: #Basophils 0.1 thou/uL (0.0-0.2); #Eosinphils 0.1 thou/uL (0.0-0.7); #Lymphocytes 2.5 thou/uL (1.20-3.40); #Monocytes 1.7 thou/uL (0.11-0.59); #Neutrophils 14.5 thou/uL (1.40-6.50); %Basophils 0.4 % (0.0-1.0); %Eosinophils 0.3 % (0.0-10.0); %Lymphocytes 13.2 % (21.0-51.0); %Monocytes 9.1 % (0.0-10.0); Hemoglobin 7.7 g/dL (12.0-16.0); Mean Corpuscular Hemoglobin 30.4 pg (27.0-31.0); Mean Corpuscular Volume 94.7 fL (78.0-98.0); Mean Platelet Volume 7.2 fL (7.4-10.4); Platelet Count 503 thou/uL (130-400); RBC Distribution Width 15.4 % (11.5-14.5); Red Blood Cell (RBC) Count 2.55 mill/uL (4.20-5.40); White Blood Cell (WBC) Count 18.8 thou/uL (4.8-10.8)
[2021-01-29 05:44] LABS: Anion Gap 14 mmol/L (10-20); BUN (Urea Nitrogen) 27 mg/dL (9.8-20.1); Calc. Creatinine Clearance 28 mL/min (70-130); Calcium 6.9 mg/dL (7.8-10.44); Carbon Dioxide 23 mmol/L (23-31); Chloride 100 mmol/L (98-107); Glucose 151 mg/dL (80-115); Potassium 3.2 mmol/L (3.5-5.1); Sodium 134 mmol/L (136-145)
[2021-01-29] MEDS: Dronabinol 2.5 MG CAP PO SCH ×2 (09:21→17:02)
[2021-01-29] MEDS: Pantoprazole 40 MG GRANULES PACKET PO SCH (14:00)
[2021-01-29] MEDS: Linezolid 600 MG in Premix Bag 1 BAG IVPB SCH ×2 (14:01→20:26)
[2021-01-29] MEDS: Folic Acid 1 MG TAB PO SCH (14:01)
[2021-01-29] MEDS: Cyanocobalamin (Vitamin B-12) 1,000 MCG TAB PO SCH (14:01)
[2021-01-29] MEDS ORDERED: Metoprolol Tartrate 5 MG/5 ML VIAL ONE (14:07)
[2021-01-29] MEDS: Polyethylene Glycol 3350 17 GM Packet PO SCH (14:09)
[2021-01-29] MEDS: Metoprolol Tartrate 25 MG TAB PO SCH ×3 (14:09→21:10)
[2021-01-29] MEDS: Meropenem 500 MG in Sodium Chloride 0.9% 100 ML IVPB SCH (15:49)
[2021-01-29] MEDS: HumaLOG 300 UNITS/3 ML VIAL SC PRN (17:04)
[2021-01-29] MEDS: Multivitamins, Adult 10 ML, TRACE ELEMENT CONCENTRATE 1 ML in D15W-AA 5% with Lytes 2,0... IV SCH (22:03)
[2021-01-29] MEDS ORDERED: Sterile Water 10 ML VIAL IVP SCH (23:00)
[2021-01-29] MEDS ORDERED: Activase 2 MG VIAL CATH SCH (23:00)
[2021-01-30 06:11] LABS: #Basophils 0.1 thou/uL (0.0-0.2); #Lymphocytes 2.3 thou/uL (1.20-3.40); #Monocytes 1.8 thou/uL (0.11-0.59); #Neutrophils 11.8 thou/uL (1.40-6.50); %Basophils 0.3 % (0.0-1.0); %Eosinophils 0.3 % (0.0-10.0); %Lymphocytes 14.5 % (21.0-51.0); %Monocytes 11.4 % (0.0-10.0); %Neutrophils 73.5 % (42.0-75.0); Hemoglobin 7.4 g/dL (12.0-16.0); Mean Corpuscular Hemoglobin 31.5 pg (27.0-31.0); Mean Corpuscular Volume 95.6 fL (78.0-98.0); Mean Platelet Volume 7.2 fL (7.4-10.4); Platelet Count 457 thou/uL (130-400); RBC Distribution Width 15.4 % (11.5-14.5); Red Blood Cell (RBC) Count 2.34 mill/uL (4.20-5.40); White Blood Cell (WBC) Count 16.1 thou/uL (4.8-10.8)
[2021-01-30 06:57] LABS: Anion Gap 7 mmol/L (10-20); BUN (Urea Nitrogen) 16 mg/dL (9.8-20.1); Calc. Creatinine Clearance 40 mL/min (70-130); Calcium 6.8 mg/dL (7.8-10.44); Carbon Dioxide 29 mmol/L (23-31); Chloride 100 mmol/L (98-107); Glucose 108 mg/dL (80-115); Potassium 3.2 mmol/L (3.5-5.1); Sodium 133 mmol/L (136-145)
[2021-01-30 07:37] LABS: Magnesium 1.6 mg/dL (1.6-2.6)
[2021-01-30] MEDS: Dronabinol 2.5 MG CAP PO SCH ×2 (09:19→17:04)
[2021-01-30] MEDS: Metoprolol Tartrate 25 MG TAB PO SCH ×2 (09:20→20:47)
[2021-01-30] MEDS: Cyanocobalamin (Vitamin B-12) 1,000 MCG TAB PO SCH (09:20)
[2021-01-30] MEDS: Pantoprazole 40 MG GRANULES PACKET PO SCH (09:20)
[2021-01-30] MEDS: Linezolid 600 MG in Premix Bag 1 BAG IVPB SCH ×2 (09:20→20:47)
[2021-01-30] MEDS: Polyethylene Glycol 3350 17 GM Packet PO SCH (09:20)
[2021-01-30] MEDS: Folic Acid 1 MG TAB PO SCH (09:20)
[2021-01-30] MEDS: Morphine 4 MG/ML VIAL SLOW IVP PRN ×4 (10:07→20:47)
[2021-01-30] MEDS: Meropenem 500 MG in Sodium Chloride 0.9% 100 ML IVPB SCH (15:27)
[2021-01-30] MEDS: Ondansetron PF 4 MG/2 ML Vial IVP PRN (15:30)
[2021-01-30] MEDS: Multivitamins, Adult 10 ML, TRACE ELEMENT CONCENTRATE 1 ML in D15W-AA 5% with Lytes 2,0... IV SCH (22:06)
[2021-01-31] MEDS: Dronabinol 2.5 MG CAP PO SCH ×2 (09:35→17:13)
[2021-01-31] MEDS: Metoprolol Tartrate 25 MG TAB PO SCH ×2 (12:15→21:07)
[2021-01-31] MEDS: Linezolid 600 MG in Premix Bag 1 BAG IVPB SCH ×2 (14:49→15:26)
[2021-01-31] MEDS: Cyanocobalamin (Vitamin B-12) 1,000 MCG TAB PO SCH (14:49)
[2021-01-31] MEDS: Polyethylene Glycol 3350 17 GM Packet PO SCH (14:50)
[2021-01-31] MEDS: Folic Acid 1 MG TAB PO SCH (14:50)
[2021-01-31] MEDS: Pantoprazole 40 MG GRANULES PACKET PO SCH (14:50)
[2021-01-31] MEDS: Meropenem 500 MG in Sodium Chloride 0.9% 100 ML IVPB SCH (15:07)
[2021-01-31] MEDS: Multivitamins, Adult 10 ML, TRACE ELEMENT CONCENTRATE 1 ML in D15W-AA 5% with Lytes 2,0... IV SCH (22:07)
[2021-01-31] MEDS: Morphine 4 MG/ML VIAL SLOW IVP PRN (23:13)
[2021-02-01] MEDS: Linezolid 600 MG in Premix Bag 1 BAG IVPB SCH ×2 (02:52→15:00)
[2021-02-01] MEDS: Morphine 4 MG/ML VIAL SLOW IVP PRN ×2 (05:43→22:57)
[2021-02-01 06:23] LABS: #Eosinphils 0.1 thou/uL (0.0-0.7); #Lymphocytes 2.3 thou/uL (1.20-3.40); #Monocytes 1.3 thou/uL (0.11-0.59); #Neutrophils 12.3 thou/uL (1.40-6.50); %Basophils 0.1 % (0.0-1.0); %Eosinophils 0.5 % (0.0-10.0); %Lymphocytes 14.3 % (21.0-51.0); %Monocytes 8.2 % (0.0-10.0); %Neutrophils 76.9 % (42.0-75.0); Hemoglobin 7.2 g/dL (12.0-16.0); Mean Corpuscular HGB CONC 32.2 g/dL (32.0-36.0); Mean Corpuscular Hemoglobin 30.8 pg (27.0-31.0); Mean Corpuscular Volume 95.6 fL (78.0-98.0); Mean Platelet Volume 7.3 fL (7.4-10.4); Platelet Count 416 thou/uL (130-400); Red Blood Cell (RBC) Count 2.33 mill/uL (4.20-5.40)
[2021-02-01 06:39] LABS: Anion Gap 9 mmol/L (10-20); BUN (Urea Nitrogen) 16 mg/dL (9.8-20.1); Calc. Creatinine Clearance 46 mL/min (70-130); Calcium 6.7 mg/dL (7.8-10.44); Carbon Dioxide 28 mmol/L (23-31); Chloride 99 mmol/L (98-107); Glucose 169 mg/dL (80-115); Potassium 3.4 mmol/L (3.5-5.1); Sodium 133 mmol/L (136-145)
[2021-02-01] MEDS: Pantoprazole 40 MG GRANULES PACKET PO SCH (09:21)
[2021-02-01] MEDS: Cyanocobalamin (Vitamin B-12) 1,000 MCG TAB PO SCH (09:21)
[2021-02-01] MEDS: Folic Acid 1 MG TAB PO SCH (09:21)
[2021-02-01] MEDS: Dronabinol 2.5 MG CAP PO SCH ×2 (09:21→19:59)
[2021-02-01] MEDS: Polyethylene Glycol 3350 17 GM Packet PO SCH (09:21)
[2021-02-01] MEDS: Metoprolol Tartrate 25 MG TAB PO SCH ×2 (09:31→21:06)
[2021-02-01] MEDS: Meropenem 500 MG in Sodium Chloride 0.9% 100 ML IVPB SCH (18:00)
[2021-02-01] MEDS: Multivitamins, Adult 10 ML, TRACE ELEMENT CONCENTRATE 1 ML in D15W-AA 5% with Lytes 2,0... IV SCH (22:45)
[2021-02-02] MEDS: Linezolid 600 MG in Premix Bag 1 BAG IVPB SCH ×2 (02:52→13:50)
[2021-02-02] MEDS: Morphine 4 MG/ML VIAL SLOW IVP PRN ×2 (06:13→11:41)
[2021-02-02] MEDS: Dronabinol 2.5 MG CAP PO SCH ×2 (09:23→17:22)
[2021-02-02] MEDS: Cyanocobalamin (Vitamin B-12) 1,000 MCG TAB PO SCH (09:24)
[2021-02-02] MEDS: Metoprolol Tartrate 25 MG TAB PO SCH ×2 (09:24→19:59)
[2021-02-02] MEDS: Polyethylene Glycol 3350 17 GM Packet PO SCH (09:24)
[2021-02-02] MEDS: Pantoprazole 40 MG GRANULES PACKET PO SCH (09:24)
[2021-02-02] MEDS: Folic Acid 1 MG TAB PO SCH (09:24)
[2021-02-02] MEDS ORDERED: Lidocaine 5% Patch TD SCH (12:45)
[2021-02-02] MEDS: Meropenem 500 MG in Sodium Chloride 0.9% 100 ML IVPB SCH (16:43)
[2021-02-02] MEDS: diphenhydrAMINE 25 MG CAP PO PRN (19:59)
[2021-02-02] MEDS: Transdermal Patch Removal TOP SCH (20:15)
[2021-02-02] MEDS: Multivitamins, Adult 10 ML, TRACE ELEMENT CONCENTRATE 1 ML in D15W-AA 5% with Lytes 2,0... IV SCH (23:24)
[2021-02-03] MEDS: Linezolid 600 MG in Premix Bag 1 BAG IVPB SCH ×2 (01:28→13:29)
[2021-02-03] MEDS: Ondansetron PF 4 MG/2 ML Vial IVP PRN ×2 (05:40→19:50)
[2021-02-03 06:38] LABS: Hemoglobin 8.1 g/dL (12.0-16.0); Mean Corpuscular HGB CONC 31.6 g/dL (32.0-36.0); Mean Corpuscular Hemoglobin 29.5 pg (27.0-31.0); Mean Corpuscular Volume 93.2 fL (78.0-98.0); Mean Platelet Volume 7.1 fL (7.4-10.4); Platelet Count 419 thou/uL (130-400); RBC Distribution Width 14.9 % (11.5-14.5); Red Blood Cell (RBC) Count 2.74 mill/uL (4.20-5.40); White Blood Cell (WBC) Count 18.8 thou/uL (4.8-10.8)
[2021-02-03 06:46] LABS: Anion Gap 12 mmol/L (10-20); BUN (Urea Nitrogen) 31 mg/dL (9.8-20.1); Calc. Creatinine Clearance 27 mL/min (70-130); Carbon Dioxide 23 mmol/L (23-31); Chloride 95 mmol/L (98-107); Glucose 110 mg/dL (80-115); Phosphorus 4.4 mg/dL (2.3-4.7); Potassium 3.5 mmol/L (3.5-5.1); Sodium 126 mmol/L (136-145)
[2021-02-03 06:47] LABS: Band 5 % (5-11); Eosinophils 6 % (0-10); Lymphocytes 15 % (21-51); MDiff Complete? YES; Monocytes 3 % (0-10); Neutrophil 69 % (42-75); Platelet Morphology Comment Appears Increased; Reactive Lymphocytes 2 % (0-10)
[2021-02-03] MEDS: Dronabinol 2.5 MG CAP PO SCH ×2 (08:06→17:41)
[2021-02-03] MEDS: Metoprolol Tartrate 25 MG TAB PO SCH ×2 (10:11→21:03)
[2021-02-03] MEDS: Polyethylene Glycol 3350 17 GM Packet PO SCH (10:11)
[2021-02-03] MEDS: Lidocaine 5% Patch TD SCH ×2 (13:28→15:02)
[2021-02-03] MEDS: Folic Acid 1 MG TAB PO SCH (13:29)
[2021-02-03] MEDS: Pantoprazole 40 MG GRANULES PACKET PO SCH (13:29)
[2021-02-03] MEDS: Cyanocobalamin (Vitamin B-12) 1,000 MCG TAB PO SCH (13:29)
[2021-02-03] MEDS: EPOETIN ALFA-EPBX (ESRD) 4,000 UNIT/ML VIAL SC SCH (13:36)
[2021-02-03] MEDS: Meropenem 500 MG in Sodium Chloride 0.9% 100 ML IVPB SCH (16:12)
[2021-02-03] MEDS: Morphine 2 MG/ML VIAL SLOW IVP PRN ×2 (17:42→22:21)
[2021-02-03] MEDS: Transdermal Patch Removal TOP SCH (21:03)
[2021-02-03] MEDS: Multivitamins, Adult 10 ML, TRACE ELEMENT CONCENTRATE 1 ML in D15W-AA 5% with Lytes 2,0... IV SCH (22:04)
[2021-02-04] MEDS: Linezolid 600 MG in Premix Bag 1 BAG IVPB SCH ×2 (02:19→14:16)
[2021-02-04] MEDS: Morphine 2 MG/ML VIAL SLOW IVP PRN ×4 (02:20→21:04)
[2021-02-04] MEDS: Ondansetron PF 4 MG/2 ML Vial IVP PRN (04:56)
[2021-02-04 05:45] LABS: #Eosinphils 0.4 thou/uL (0.0-0.7); #Lymphocytes 2.3 thou/uL (1.20-3.40); #Neutrophils 11.7 thou/uL (1.40-6.50); %Basophils 0.2 % (0.0-1.0); %Eosinophils 2.5 % (0.0-10.0); %Lymphocytes 14.9 % (21.0-51.0); %Monocytes 6.5 % (0.0-10.0); %Neutrophils 75.9 % (42.0-75.0); Mean Corpuscular HGB CONC 31.9 g/dL (32.0-36.0); Mean Corpuscular Hemoglobin 29.8 pg (27.0-31.0); Mean Corpuscular Volume 93.7 fL (78.0-98.0); Mean Platelet Volume 7.1 fL (7.4-10.4); Platelet Count 322 thou/uL (130-400); RBC Distribution Width 14.8 % (11.5-14.5); Red Blood Cell (RBC) Count 2.34 mill/uL (4.20-5.40); White Blood Cell (WBC) Count 15.4 thou/uL (4.8-10.8)
[2021-02-04 06:06] LABS: ALT (SGPT) 7 U/L (8-55); AST (SGOT) 45 U/L (5-34); Albumin 1.3 g/dL (3.4-4.8); Alkaline Phosphatase 844 U/L (40-110); Anion Gap 9 mmol/L (10-20); BUN (Urea Nitrogen) 19 mg/dL (9.8-20.1); Bilirubin, Total Less than 0.2 mg/dL (0.2-1.2); Calc. Creatinine Clearance 40 mL/min (70-130); Calcium 6.7 mg/dL (7.8-10.44); Carbon Dioxide 27 mmol/L (23-31); Chloride 98 mmol/L (98-107); Globulin 3.5 g/dL (2.4-3.5); Glucose 145 mg/dL (80-115); Potassium 3.6 mmol/L (3.5-5.1); Protein, Total 4.8 g/dL (5.8-8.1); Sodium 130 mmol/L (136-145)
[2021-02-04] MEDS: Folic Acid 1 MG TAB PO SCH (08:27)
[2021-02-04] MEDS: Metoprolol Tartrate 25 MG TAB PO SCH ×2 (08:27→21:03)
[2021-02-04] MEDS: Pantoprazole 40 MG GRANULES PACKET PO SCH (08:27)
[2021-02-04] MEDS: Cyanocobalamin (Vitamin B-12) 1,000 MCG TAB PO SCH (08:27)
[2021-02-04] MEDS: Polyethylene Glycol 3350 17 GM Packet PO SCH (08:28)
[2021-02-04] MEDS: Dronabinol 2.5 MG CAP PO SCH ×2 (08:38→18:40)
[2021-02-04] MEDS: Lidocaine 5% Patch TD SCH (11:06)
[2021-02-04] MEDS: diphenhydrAMINE 25 MG CAP PO PRN (11:12)
[2021-02-04] MEDS: Meropenem 500 MG in Sodium Chloride 0.9% 100 ML IVPB SCH (16:29)
[2021-02-04] MEDS: Transdermal Patch Removal TOP SCH (21:03)
[2021-02-04] MEDS: Multivitamins, Adult 10 ML, TRACE ELEMENT CONCENTRATE 1 ML in D15W-AA 5% with Lytes 2,0... IV SCH (21:46)
[2021-02-04] MEDS ORDERED: Lidocaine 2% Viscous Solution 10 ML, Aluminum & Magnesium Hydroxide 30 ML SSW SCH (23:00)
[2021-02-05] MEDS: Zolpidem Tartrate 5 MG TAB PO PRN (00:57)
[2021-02-05] MEDS: Linezolid 600 MG in Premix Bag 1 BAG IVPB SCH ×2 (02:46→14:01)
[2021-02-05] MEDS: Dronabinol 2.5 MG CAP PO SCH ×2 (08:00→18:00)
[2021-02-05 09:02] LABS: #Eosinphils 0.3 thou/uL (0.0-0.7); #Lymphocytes 2.3 thou/uL (1.20-3.40); #Monocytes 0.9 thou/uL (0.11-0.59); #Neutrophils 11.9 thou/uL (1.40-6.50); %Basophils 0.3 % (0.0-1.0); %Eosinophils 1.9 % (0.0-10.0); %Lymphocytes 14.6 % (21.0-51.0); %Monocytes 5.9 % (0.0-10.0); %Neutrophils 77.3 % (42.0-75.0); Hemoglobin 7.2 g/dL (12.0-16.0); Mean Corpuscular HGB CONC 33.8 g/dL (32.0-36.0); Mean Corpuscular Hemoglobin 31.2 pg (27.0-31.0); Mean Corpuscular Volume 92.5 fL (78.0-98.0); Mean Platelet Volume 6.7 fL (7.4-10.4); Platelet Count 313 thou/uL (130-400); RBC Distribution Width 14.8 % (11.5-14.5); Red Blood Cell (RBC) Count 2.29 mill/uL (4.20-5.40); White Blood Cell (WBC) Count 15.4 thou/uL (4.8-10.8)
[2021-02-05 09:19] LABS: Anion Gap 11 mmol/L (10-20); BUN (Urea Nitrogen) 27 mg/dL (9.8-20.1); Calc. Creatinine Clearance 34 mL/min (70-130); Calcium 6.6 mg/dL (7.8-10.44); Carbon Dioxide 26 mmol/L (23-31); Chloride 97 mmol/L (98-107); Glucose 116 mg/dL (80-115); Potassium 3.8 mmol/L (3.5-5.1); Sodium 130 mmol/L (136-145)
[2021-02-05] MEDS: Pantoprazole 40 MG GRANULES PACKET PO SCH (13:53)
[2021-02-05] MEDS: Folic Acid 1 MG TAB PO SCH (13:54)
[2021-02-05] MEDS: Metoprolol Tartrate 25 MG TAB PO SCH ×2 (13:54→20:16)
[2021-02-05] MEDS: Cyanocobalamin (Vitamin B-12) 1,000 MCG TAB PO SCH (13:54)
[2021-02-05] MEDS: Polyethylene Glycol 3350 17 GM Packet PO SCH (13:55)
[2021-02-05] MEDS: Lidocaine 5% Patch TD SCH (14:04)
[2021-02-05] MEDS: Morphine 2 MG/ML VIAL SLOW IVP PRN ×2 (16:07→20:13)
[2021-02-05] MEDS: Meropenem 500 MG in Sodium Chloride 0.9% 100 ML IVPB SCH (16:08)
[2021-02-05] MEDS: Transdermal Patch Removal TOP SCH (20:14)
[2021-02-05] MEDS: Multivitamins, Adult 10 ML, TRACE ELEMENT CONCENTRATE 1 ML in D15W-AA 5% with Lytes 2,0... IV SCH (21:59)
[2021-02-05] MEDS: diphenhydrAMINE 25 MG CAP PO PRN (21:59)
[2021-02-06] MEDS: Zolpidem Tartrate 5 MG TAB PO PRN (00:59)
[2021-02-06] MEDS: Linezolid 600 MG in Premix Bag 1 BAG IVPB SCH ×2 (01:06→13:04)
[2021-02-06] MEDS: Morphine 2 MG/ML VIAL SLOW IVP PRN (03:36)
[2021-02-06] MEDS: Polyethylene Glycol 3350 17 GM Packet PO SCH (08:21)
[2021-02-06] MEDS: Dronabinol 2.5 MG CAP PO SCH ×2 (08:21→17:34)
[2021-02-06] MEDS: Folic Acid 1 MG TAB PO SCH (08:21)
[2021-02-06] MEDS: Pantoprazole 40 MG GRANULES PACKET PO SCH (08:21)
[2021-02-06] MEDS: Metoprolol Tartrate 25 MG TAB PO SCH ×2 (08:21→20:36)
[2021-02-06] MEDS: Cyanocobalamin (Vitamin B-12) 1,000 MCG TAB PO SCH (08:21)
[2021-02-06] MEDS: Morphine 4 MG/ML VIAL SLOW IVP PRN ×3 (08:22→18:09)
[2021-02-06] MEDS: Lidocaine 5% Patch TD SCH (08:54)
[2021-02-06 08:58] LABS: #Eosinphils 0.2 thou/uL (0.0-0.7); #Lymphocytes 2.5 thou/uL (1.20-3.40); #Monocytes 0.7 thou/uL (0.11-0.59); #Neutrophils 10.4 thou/uL (1.40-6.50); %Basophils 0.2 % (0.0-1.0); %Eosinophils 1.3 % (0.0-10.0); %Monocytes 5.3 % (0.0-10.0); %Neutrophils 75.2 % (42.0-75.0); Hemoglobin 8.8 g/dL (12.0-16.0); Mean Corpuscular HGB CONC 33.9 g/dL (32.0-36.0); Mean Corpuscular Hemoglobin 31.3 pg (27.0-31.0); Mean Corpuscular Volume 92.3 fL (78.0-98.0); Mean Platelet Volume 6.7 fL (7.4-10.4); Platelet Count 269 thou/uL (130-400); RBC Distribution Width 14.4 % (11.5-14.5); Red Blood Cell (RBC) Count 2.82 mill/uL (4.20-5.40); White Blood Cell (WBC) Count 13.8 thou/uL (4.8-10.8)
[2021-02-06 09:20] LABS: Anion Gap 7 mmol/L (10-20); BUN (Urea Nitrogen) 20 mg/dL (9.8-20.1); Calc. Creatinine Clearance 42 mL/min (70-130); Carbon Dioxide 29 mmol/L (23-31); Chloride 98 mmol/L (98-107); Glucose 113 mg/dL (80-115); Potassium 3.9 mmol/L (3.5-5.1); Sodium 130 mmol/L (136-145)
[2021-02-06] MEDS: Meropenem 500 MG in Sodium Chloride 0.9% 100 ML IVPB SCH (15:03)
[2021-02-06] MEDS: diphenhydrAMINE 25 MG CAP PO PRN (20:36)
[2021-02-06] MEDS: Transdermal Patch Removal TOP SCH (20:50)
[2021-02-06] MEDS: Multivitamins, Adult 10 ML, TRACE ELEMENT CONCENTRATE 1 ML in D15W-AA 5% with Lytes 2,0... IV SCH (22:35)
[2021-02-07] MEDS: Linezolid 600 MG in Premix Bag 1 BAG IVPB SCH ×2 (01:24→13:53)
[2021-02-07] MEDS: Morphine 4 MG/ML VIAL SLOW IVP PRN ×2 (04:22→15:47)
[2021-02-07 05:01] LABS: #Eosinphils 0.3 thou/uL (0.0-0.7); #Lymphocytes 2.4 thou/uL (1.20-3.40); #Monocytes 0.8 thou/uL (0.11-0.59); #Neutrophils 11.7 thou/uL (1.40-6.50); %Basophils 0.2 % (0.0-1.0); %Eosinophils 1.8 % (0.0-10.0); %Monocytes 5.2 % (0.0-10.0); %Neutrophils 76.8 % (42.0-75.0); Hemoglobin 8.6 g/dL (12.0-16.0); Mean Corpuscular HGB CONC 33.3 g/dL (32.0-36.0); Mean Corpuscular Hemoglobin 30.7 pg (27.0-31.0); Mean Corpuscular Volume 92.1 fL (78.0-98.0); Mean Platelet Volume 6.7 fL (7.4-10.4); Platelet Count 258 thou/uL (130-400); RBC Distribution Width 14.3 % (11.5-14.5); White Blood Cell (WBC) Count 15.2 thou/uL (4.8-10.8)
[2021-02-07 05:35] LABS: Anion Gap 10 mmol/L (10-20); BUN (Urea Nitrogen) 28 mg/dL (9.8-20.1); Calc. Creatinine Clearance 33 mL/min (70-130); Calcium 7.3 mg/dL (7.8-10.44); Carbon Dioxide 25 mmol/L (23-31); Chloride 95 mmol/L (98-107); Glucose 102 mg/dL (80-115); Sodium 126 mmol/L (136-145)
[2021-02-07] MEDS: Dronabinol 2.5 MG CAP PO SCH ×3 (08:06→18:53)
[2021-02-07] MEDS: Cyanocobalamin (Vitamin B-12) 1,000 MCG TAB PO SCH (08:07)
[2021-02-07] MEDS: Lidocaine 5% Patch TD SCH (08:07)
[2021-02-07] MEDS: Metoprolol Tartrate 25 MG TAB PO SCH ×2 (08:07→21:54)
[2021-02-07] MEDS: Pantoprazole 40 MG GRANULES PACKET PO SCH (08:07)
[2021-02-07] MEDS: Folic Acid 1 MG TAB PO SCH (08:07)
[2021-02-07] MEDS: Meropenem 500 MG in Sodium Chloride 0.9% 100 ML IVPB SCH (15:41)
[2021-02-07 16:32] LABS: #Eosinphils 0.2 thou/uL (0.0-0.7); #Lymphocytes 1.9 thou/uL (1.20-3.40); #Monocytes 0.7 thou/uL (0.11-0.59); #Neutrophils 10.5 thou/uL (1.40-6.50); %Basophils 0.2 % (0.0-1.0); %Eosinophils 1.2 % (0.0-10.0); %Lymphocytes 14.1 % (21.0-51.0); %Monocytes 4.9 % (0.0-10.0); %Neutrophils 79.6 % (42.0-75.0); Hemoglobin 8.2 g/dL (12.0-16.0); Mean Corpuscular HGB CONC 33.2 g/dL (32.0-36.0); Mean Corpuscular Hemoglobin 30.7 pg (27.0-31.0); Mean Corpuscular Volume 92.3 fL (78.0-98.0); Mean Platelet Volume 6.6 fL (7.4-10.4); Platelet Count 227 thou/uL (130-400); RBC Distribution Width 14.2 % (11.5-14.5); Red Blood Cell (RBC) Count 2.68 mill/uL (4.20-5.40); White Blood Cell (WBC) Count 13.2 thou/uL (4.8-10.8)
[2021-02-07] MEDS: Multivitamins, Adult 10 ML, TRACE ELEMENT CONCENTRATE 1 ML in D15W-AA 5% with Lytes 2,0... IV SCH (21:39)
[2021-02-07] MEDS: diphenhydrAMINE 25 MG CAP PO PRN (21:39)
[2021-02-07] MEDS: Transdermal Patch Removal TOP SCH (21:39)
[2021-02-08] MEDS: Morphine 4 MG/ML VIAL SLOW IVP PRN ×3 (01:57→21:31)
[2021-02-08] MEDS: Linezolid 600 MG in Premix Bag 1 BAG IVPB SCH ×2 (01:58→14:03)
[2021-02-08] MEDS: diphenhydrAMINE 25 MG CAP PO PRN (02:14)
[2021-02-08] MEDS: Zolpidem Tartrate 5 MG TAB PO PRN ×2 (02:14→23:41)
[2021-02-08 05:52] LABS: #Eosinphils 0.3 thou/uL (0.0-0.7); #Lymphocytes 2.1 thou/uL (1.20-3.40); #Monocytes 0.6 thou/uL (0.11-0.59); #Neutrophils 8.4 thou/uL (1.40-6.50); %Basophils 0.4 % (0.0-1.0); %Eosinophils 2.2 % (0.0-10.0); %Lymphocytes 18.3 % (21.0-51.0); %Monocytes 5.3 % (0.0-10.0); %Neutrophils 73.8 % (42.0-75.0); Anion Gap 10 mmol/L (10-20); BUN (Urea Nitrogen) 17 mg/dL (9.8-20.1); Calc. Creatinine Clearance 47 mL/min (70-130); Carbon Dioxide 28 mmol/L (23-31); Chloride 98 mmol/L (98-107); Glucose 90 mg/dL (80-115); Hemoglobin 7.9 g/dL (12.0-16.0); Mean Corpuscular HGB CONC 33.1 g/dL (32.0-36.0); Mean Corpuscular Hemoglobin 30.7 pg (27.0-31.0); Mean Corpuscular Volume 92.8 fL (78.0-98.0); Mean Platelet Volume 6.7 fL (7.4-10.4); Platelet Count 214 thou/uL (130-400); Potassium 3.9 mmol/L (3.5-5.1); RBC Distribution Width 14.2 % (11.5-14.5); Red Blood Cell (RBC) Count 2.57 mill/uL (4.20-5.40); Sodium 132 mmol/L (136-145); White Blood Cell (WBC) Count 11.4 thou/uL (4.8-10.8)
[2021-02-08] MEDS: Dronabinol 2.5 MG CAP PO SCH ×2 (06:11→17:15)
[2021-02-08] MEDS: Pantoprazole 40 MG GRANULES PACKET PO SCH (08:29)
[2021-02-08] MEDS: Metoprolol Tartrate 25 MG TAB PO SCH ×2 (08:29→21:52)
[2021-02-08] MEDS: Lidocaine 5% Patch TD SCH (08:29)
[2021-02-08] MEDS: Folic Acid 1 MG TAB PO SCH (08:29)
[2021-02-08] MEDS: Cyanocobalamin (Vitamin B-12) 1,000 MCG TAB PO SCH (08:29)
[2021-02-08] MEDS: Meropenem 500 MG in Sodium Chloride 0.9% 100 ML IVPB SCH (14:04)
[2021-02-08] MEDS: diphenhydrAMINE 50 MG/ML VIAL IVP PRN (21:30)
[2021-02-08] MEDS: Transdermal Patch Removal TOP SCH (21:52)
[2021-02-08] MEDS: Multivitamins, Adult 10 ML, TRACE ELEMENT CONCENTRATE 1 ML in D15W-AA 5% with Lytes 2,0... IV SCH (22:05)
[2021-02-09] MEDS: Morphine 4 MG/ML VIAL SLOW IVP PRN ×3 (01:34→18:18)
[2021-02-09] MEDS: diphenhydrAMINE 50 MG/ML VIAL IVP PRN (01:35)
[2021-02-09] MEDS: Linezolid 600 MG in Premix Bag 1 BAG IVPB SCH ×2 (01:35→14:10)
[2021-02-09] MEDS: Dronabinol 2.5 MG CAP PO SCH ×2 (06:20→16:27)
[2021-02-09 06:47] LABS: #Basophils 0.1 thou/uL (0.0-0.2); #Eosinphils 0.4 thou/uL (0.0-0.7); #Lymphocytes 2.6 thou/uL (1.20-3.40); #Monocytes 0.6 thou/uL (0.11-0.59); #Neutrophils 9.1 thou/uL (1.40-6.50); %Basophils 0.5 % (0.0-1.0); %Lymphocytes 20.1 % (21.0-51.0); %Monocytes 4.9 % (0.0-10.0); %Neutrophils 71.6 % (42.0-75.0); Hemoglobin 7.8 g/dL (12.0-16.0); Mean Corpuscular HGB CONC 33.9 g/dL (32.0-36.0); Mean Corpuscular Hemoglobin 31.3 pg (27.0-31.0); Mean Corpuscular Volume 92.5 fL (78.0-98.0); Mean Platelet Volume 6.7 fL (7.4-10.4); Platelet Count 200 thou/uL (130-400); RBC Distribution Width 14.4 % (11.5-14.5); Red Blood Cell (RBC) Count 2.48 mill/uL (4.20-5.40); White Blood Cell (WBC) Count 12.8 thou/uL (4.8-10.8)
[2021-02-09 07:06] LABS: Anion Gap 12 mmol/L (10-20); BUN (Urea Nitrogen) 27 mg/dL (9.8-20.1); Calc. Creatinine Clearance 33 mL/min (70-130); Calcium 7.3 mg/dL (7.8-10.44); Carbon Dioxide 25 mmol/L (23-31); Chloride 95 mmol/L (98-107); Glucose 83 mg/dL (80-115); Potassium 4.4 mmol/L (3.5-5.1); Sodium 128 mmol/L (136-145)
[2021-02-09] MEDS: Cyanocobalamin (Vitamin B-12) 1,000 MCG TAB PO SCH (08:23)
[2021-02-09] MEDS: Folic Acid 1 MG TAB PO SCH (08:23)
[2021-02-09] MEDS: Pantoprazole 40 MG GRANULES PACKET PO SCH (08:23)
[2021-02-09] MEDS: Metoprolol Tartrate 25 MG TAB PO SCH ×2 (08:24→20:42)
[2021-02-09] MEDS: Lidocaine 5% Patch TD SCH (09:00)
[2021-02-09] MEDS: HYDROcodone/Acetaminophen 5/325 mg Tablet PO PRN ×3 (12:27→20:43)
[2021-02-09] MEDS: Meropenem 500 MG in Sodium Chloride 0.9% 100 ML IVPB SCH (14:10)
[2021-02-09] MEDS: diphenhydrAMINE 25 MG CAP PO PRN ×2 (16:27→20:43)
[2021-02-09] MEDS: Transdermal Patch Removal TOP SCH (20:58)
[2021-02-09] MEDS: Multivitamins, Adult 10 ML, TRACE ELEMENT CONCENTRATE 1 ML in D15W-AA 5% with Lytes 2,0... IV SCH (22:22)
[2021-02-10] MEDS: Linezolid 600 MG in Premix Bag 1 BAG IVPB SCH ×2 (01:41→14:14)
[2021-02-10] MEDS: diphenhydrAMINE 25 MG CAP PO PRN (02:07)
[2021-02-10] MEDS: HYDROcodone/Acetaminophen 5/325 mg Tablet PO PRN (02:07)
[2021-02-10] MEDS: Ondansetron PF 4 MG/2 ML Vial IVP PRN (05:50)
[2021-02-10] MEDS: Dronabinol 2.5 MG CAP PO SCH ×2 (06:38→19:11)
[2021-02-10 06:57] LABS: #Eosinphils 0.1 thou/uL (0.0-0.7); #Lymphocytes 2.1 thou/uL (1.20-3.40); #Monocytes 0.6 thou/uL (0.11-0.59); #Neutrophils 13.3 thou/uL (1.40-6.50); %Basophils 0.2 % (0.0-1.0); %Eosinophils 0.8 % (0.0-10.0); %Lymphocytes 12.7 % (21.0-51.0); %Monocytes 3.7 % (0.0-10.0); %Neutrophils 82.6 % (42.0-75.0); Hemoglobin 7.7 g/dL (12.0-16.0); Mean Corpuscular HGB CONC 33.1 g/dL (32.0-36.0); Mean Corpuscular Hemoglobin 30.5 pg (27.0-31.0); Mean Platelet Volume 6.8 fL (7.4-10.4); Platelet Count 210 thou/uL (130-400); RBC Distribution Width 14.5 % (11.5-14.5); Red Blood Cell (RBC) Count 2.52 mill/uL (4.20-5.40); White Blood Cell (WBC) Count 16.1 thou/uL (4.8-10.8)
[2021-02-10 07:19] LABS: Phosphorus 4.9 mg/dL (2.3-4.7)
[2021-02-10 07:22] LABS: ALT (SGPT) 8 U/L (8-55); AST (SGOT) 36 U/L (5-34); Albumin 1.6 g/dL (3.4-4.8); Alkaline Phosphatase 570 U/L (40-110); Anion Gap 15 mmol/L (10-20); BUN (Urea Nitrogen) 38 mg/dL (9.8-20.1); Bilirubin, Total 0.3 mg/dL (0.2-1.2); Calc. Creatinine Clearance 27 mL/min (70-130); Calcium 7.4 mg/dL (7.8-10.44); Carbon Dioxide 23 mmol/L (23-31); Chloride 93 mmol/L (98-107); Globulin 3.9 g/dL (2.4-3.5); Glucose 70 mg/dL (80-115); Magnesium 1.6 mg/dL (1.6-2.6); Potassium 4.8 mmol/L (3.5-5.1); Protein, Total 5.5 g/dL (5.8-8.1); Sodium 126 mmol/L (136-145)
[2021-02-10] MEDS: Cyanocobalamin (Vitamin B-12) 1,000 MCG TAB PO SCH (08:26)
[2021-02-10] MEDS: Folic Acid 1 MG TAB PO SCH (08:26)
[2021-02-10] MEDS: Metoprolol Tartrate 25 MG TAB PO SCH ×2 (08:26→21:40)
[2021-02-10] MEDS: Pantoprazole 40 MG GRANULES PACKET PO SCH (08:26)
[2021-02-10] MEDS: EPOETIN ALFA-EPBX (ESRD) 4,000 UNIT/ML VIAL SC SCH (10:31)
[2021-02-10] MEDS: Lidocaine 5% Patch TD SCH (10:32)
[2021-02-10 12:59] LABS: Actual Bicarbonate (HCO3a) 23.8 mEq/L (22-28); Base Excess (BEa) -0.1 mEq/L (-2.0 to +3.0); CO2 Tension 35.4 mmHg (35.0-45.0); Calcium, Ionized (arterial) 1.03 mmol/L (1.12-1.30); Carboxyhemoglobin (COHb) 0.4 gm% (0.0-3.0); Potassium - ABG Lab 5.19 mmol/L (3.70-5.30); pH, Arterial 7.45 (7.35-7.45)
[2021-02-10 13:01] LABS: O2 Tension (PaO2), arterial 54.8 mmHg (> 80.0); Puncture Site RRA
[2021-02-10] MEDS: Meropenem 500 MG in Sodium Chloride 0.9% 100 ML IVPB SCH (21:40)
[2021-02-10] MEDS: Multivitamins, Adult 10 ML, TRACE ELEMENT CONCENTRATE 1 ML in D15W-AA 5% with Lytes 2,0... IV SCH (23:00)
[2021-02-10] MEDS: Transdermal Patch Removal TOP SCH (23:43)
[2021-02-11] MEDS ORDERED: Acetaminophen 325 MG TAB PO SCH (00:15)
[2021-02-11] MEDS: Linezolid 600 MG in Premix Bag 1 BAG IVPB SCH ×2 (02:06→14:00)
[2021-02-11] MEDS: HYDROcodone/Acetaminophen 5/325 mg Tablet PO PRN ×3 (02:34→21:31)
[2021-02-11] MEDS: diphenhydrAMINE 25 MG CAP PO PRN ×2 (02:34→21:31)
[2021-02-11] MEDS: Dronabinol 2.5 MG CAP PO SCH ×2 (06:36→17:58)
[2021-02-11 07:39] LABS: #Lymphocytes 0.9 thou/uL (1.20-3.40); #Monocytes 0.3 thou/uL (0.11-0.59); #Neutrophils 10.9 thou/uL (1.40-6.50); %Basophils 0.2 % (0.0-1.0); %Eosinophils 0.2 % (0.0-10.0); %Lymphocytes 7.7 % (21.0-51.0); %Monocytes 2.2 % (0.0-10.0); %Neutrophils 89.8 % (42.0-75.0); Hemoglobin 6.5 g/dL (12.0-16.0); Mean Corpuscular HGB CONC 34.4 g/dL (32.0-36.0); Mean Corpuscular Hemoglobin 31.6 pg (27.0-31.0); Mean Corpuscular Volume 91.7 fL (78.0-98.0); Mean Platelet Volume 6.9 fL (7.4-10.4); Platelet Count 144 thou/uL (130-400); RBC Distribution Width 14.6 % (11.5-14.5); Red Blood Cell (RBC) Count 2.06 mill/uL (4.20-5.40); White Blood Cell (WBC) Count 12.1 thou/uL (4.8-10.8)
[2021-02-11 07:40] LABS: Anion Gap 13 mmol/L (10-20); BUN (Urea Nitrogen) 26 mg/dL (9.8-20.1); Calc. Creatinine Clearance 35 mL/min (70-130); Calcium 7.1 mg/dL (7.8-10.44); Carbon Dioxide 27 mmol/L (23-31); Chloride 96 mmol/L (98-107); Glucose 115 mg/dL (80-115); Potassium 3.5 mmol/L (3.5-5.1); Sodium 132 mmol/L (136-145)
[2021-02-11] MEDS: Cyanocobalamin (Vitamin B-12) 1,000 MCG TAB PO SCH (08:40)
[2021-02-11] MEDS: Folic Acid 1 MG TAB PO SCH (08:40)
[2021-02-11] MEDS: Metoprolol Tartrate 25 MG TAB PO SCH ×2 (08:40→21:27)
[2021-02-11] MEDS: Lidocaine 5% Patch TD SCH (08:41)
[2021-02-11] MEDS: Pantoprazole 40 MG GRANULES PACKET PO SCH (08:41)
[2021-02-11] MEDS: Megestrol Acetate 800 MG/20 ML UDCUP PO SCH (17:18)
[2021-02-11] MEDS: Meropenem 500 MG in Sodium Chloride 0.9% 100 ML IVPB SCH (19:25)
[2021-02-11 20:12] LABS: Glucose 72 mg/dL (80-115)
[2021-02-11] MEDS: Transdermal Patch Removal TOP SCH (21:27)
[2021-02-11] MEDS: Multivitamins, Adult 10 ML, TRACE ELEMENT CONCENTRATE 1 ML in D15W-AA 5% with Lytes 2,0... IV SCH (23:10)
[2021-02-12] MEDS: diphenhydrAMINE 25 MG CAP PO PRN ×2 (05:00→22:53)
[2021-02-12] MEDS: HYDROcodone/Acetaminophen 5/325 mg Tablet PO PRN ×3 (05:00→22:53)
[2021-02-12] MEDS: Dronabinol 2.5 MG CAP PO SCH ×2 (06:24→17:42)
[2021-02-12 08:49] LABS: Hemoglobin 7.1 g/dL (12.0-16.0); Platelet Count 143 thou/uL (130-400)
[2021-02-12 09:05] LABS: Glucose 83 mg/dL (80-115)
[2021-02-12] MEDS: Lidocaine 5% Patch TD SCH (09:56)
[2021-02-12] MEDS: Cyanocobalamin (Vitamin B-12) 1,000 MCG TAB PO SCH (13:43)
[2021-02-12] MEDS: Folic Acid 1 MG TAB PO SCH (13:43)
[2021-02-12] MEDS: Metoprolol Tartrate 25 MG TAB PO SCH ×2 (13:44→21:13)
[2021-02-12] MEDS: Pantoprazole 40 MG GRANULES PACKET PO SCH (13:44)
[2021-02-12] MEDS ORDERED: Fluconazole 100 MG TAB PO SCH (15:00)
[2021-02-12] MEDS: Fluconazole 100 MG TAB PO SCH (17:21)
[2021-02-12 17:28] LABS: Glucose 71 mg/dL (80-115)
[2021-02-12] MEDS: Megestrol Acetate 800 MG/20 ML UDCUP PO SCH (17:42)
[2021-02-12] MEDS: Transdermal Patch Removal TOP SCH (21:14)
[2021-02-13] MEDS: Haloperidol 1 MG TAB PO PRN (00:37)
[2021-02-13] MEDS ORDERED: HYDROcodone/Acetaminophen 5/325 mg Tablet PO SCH (02:45)
[2021-02-13] MEDS: Simethicone Chewable 80 MG TAB PO PRN (04:25)
[2021-02-13 06:06] LABS: #Eosinphils 0.1 thou/uL (0.0-0.7); #Lymphocytes 1.6 thou/uL (1.20-3.40); #Monocytes 0.7 thou/uL (0.11-0.59); #Neutrophils 6.3 thou/uL (1.40-6.50); %Basophils 0.3 % (0.0-1.0); %Eosinophils 0.8 % (0.0-10.0); %Lymphocytes 18.3 % (21.0-51.0); %Neutrophils 72.7 % (42.0-75.0); Hemoglobin 10.3 g/dL (12.0-16.0); Mean Corpuscular HGB CONC 33.5 g/dL (32.0-36.0); Mean Corpuscular Hemoglobin 30.1 pg (27.0-31.0); Mean Corpuscular Volume 89.9 fL (78.0-98.0); Mean Platelet Volume 7.6 fL (7.4-10.4); Platelet Count 128 thou/uL (130-400); RBC Distribution Width 15.6 % (11.5-14.5); Red Blood Cell (RBC) Count 3.41 mill/uL (4.20-5.40); White Blood Cell (WBC) Count 8.7 thou/uL (4.8-10.8)
[2021-02-13] MEDS: Dronabinol 2.5 MG CAP PO SCH ×2 (06:13→17:24)
[2021-02-13 06:21] LABS: Anion Gap 12 mmol/L (10-20); BUN (Urea Nitrogen) 23 mg/dL (9.8-20.1); Calc. Creatinine Clearance 39 mL/min (70-130); Calcium 7.3 mg/dL (7.8-10.44); Carbon Dioxide 26 mmol/L (23-31); Chloride 100 mmol/L (98-107); Glucose 84 mg/dL (80-115); Potassium 3.1 mmol/L (3.5-5.1); Sodium 135 mmol/L (136-145)
[2021-02-13] MEDS: Lidocaine 5% Patch TD SCH (08:09)
[2021-02-13] MEDS: Cyanocobalamin (Vitamin B-12) 1,000 MCG TAB PO SCH (08:09)
[2021-02-13] MEDS: Folic Acid 1 MG TAB PO SCH (08:10)
[2021-02-13] MEDS: Metoprolol Tartrate 25 MG TAB PO SCH ×2 (08:10→20:04)
[2021-02-13] MEDS: Pantoprazole 40 MG GRANULES PACKET PO SCH (08:10)
[2021-02-13] MEDS ORDERED: Potassium Chloride 20 MEQ in Premix Bag 1 BAG IVPB SCH (09:00)
[2021-02-13] MEDS ORDERED: Potassium Chloride 20 MEQ TAB PO SCH (11:15)
[2021-02-13] MEDS: Fluconazole 100 MG TAB PO SCH (17:12)
[2021-02-13] MEDS: Megestrol Acetate 800 MG/20 ML UDCUP PO SCH (17:12)
[2021-02-13] MEDS: HYDROcodone/Acetaminophen 5/325 mg Tablet PO PRN (17:15)
[2021-02-13] MEDS: diphenhydrAMINE 25 MG CAP PO PRN (20:04)
[2021-02-13] MEDS: Zolpidem Tartrate 5 MG TAB PO PRN (20:04)
[2021-02-13] MEDS: Transdermal Patch Removal TOP SCH (20:33)
[2021-02-14] MEDS: Zolpidem Tartrate 5 MG TAB PO PRN (00:32)
[2021-02-14] MEDS: HYDROcodone/Acetaminophen 5/325 mg Tablet PO PRN (00:32)
[2021-02-14] MEDS: Haloperidol 1 MG TAB PO PRN (01:51)
[2021-02-14 04:24] VITALS: TEMP 98.6
[2021-02-14 06:25] LABS: #Basophils 0.1 thou/uL (0.0-0.2); #Eosinphils 0.1 thou/uL (0.0-0.7); #Lymphocytes 2.4 thou/uL (1.20-3.40); #Neutrophils 5.9 thou/uL (1.40-6.50); %Basophils 0.6 % (0.0-1.0); %Eosinophils 0.7 % (0.0-10.0); %Lymphocytes 25.3 % (21.0-51.0); %Monocytes 10.7 % (0.0-10.0); %Neutrophils 62.7 % (42.0-75.0); Hemoglobin 10.1 g/dL (12.0-16.0); Mean Corpuscular Hemoglobin 30.9 pg (27.0-31.0); Mean Corpuscular Volume 90.7 fL (78.0-98.0); Mean Platelet Volume 7.5 fL (7.4-10.4); Platelet Count 120 thou/uL (130-400); RBC Distribution Width 15.2 % (11.5-14.5); Red Blood Cell (RBC) Count 3.26 mill/uL (4.20-5.40); White Blood Cell (WBC) Count 9.4 thou/uL (4.8-10.8)
[2021-02-14 06:47] LABS: Anion Gap 14 mmol/L (10-20); BUN (Urea Nitrogen) 33 mg/dL (9.8-20.1); Calc. Creatinine Clearance 28 mL/min (70-130); Calcium 7.3 mg/dL (7.8-10.44); Carbon Dioxide 25 mmol/L (23-31); Chloride 102 mmol/L (98-107); Glucose 75 mg/dL (80-115); Potassium 3.8 mmol/L (3.5-5.1); Sodium 137 mmol/L (136-145)
[2021-02-14] MEDS: Dronabinol 2.5 MG CAP PO SCH (06:47)
[2021-02-14 07:52] VITALS: BP 155/82
[2021-02-14] MEDS: Folic Acid 1 MG TAB PO SCH (08:17)
[2021-02-14] MEDS: Pantoprazole 40 MG GRANULES PACKET PO SCH (08:17)
[2021-02-14] MEDS: Cyanocobalamin (Vitamin B-12) 1,000 MCG TAB PO SCH (08:17)
[2021-02-14] MEDS: Metoprolol Tartrate 25 MG TAB PO SCH (08:17)
[2021-02-14] MEDS: Lidocaine 5% Patch TD SCH (10:48)
== END 2021-02-14 09:05 | DRG 329 ==
LOC: ERS 22:40 → T4-B 12-31 01:08 → SURG A 02-08 00:30
PROVIDERS: ADMIT Student in an Organized Health Care Education/Training Program; ATTEND Internal Medicine
PROC: 0D9670Z Drainage of Stomach with Drainage Device, Via Natural or Artificial Opening (ICD-10-PCS; 2020-12-31)
PROC: 5A1D70Z Performance of Urinary Filtration, Intermittent, Less than 6 Hours Per Day (ICD-10-PCS; 2021-01-01)
PROC: 0DBN0ZZ Excision of Sigmoid Colon, Open Approach (ICD-10-PCS; principal; 2021-01-07)
PROC: 0D1N0Z4 Bypass Sigmoid Colon to Cutaneous, Open Approach (ICD-10-PCS; 2021-01-07)
PROC: 3E0T3BZ Introduction of Anesthetic Agent into Peripheral Nerves and Plexi, Percutaneous Approach (ICD-10-PCS; 2021-01-07)
PROC: 0DNN4ZZ Release Sigmoid Colon, Percutaneous Endoscopic Approach (ICD-10-PCS; 2021-01-14)
PROC: 0DNU4ZZ Release Omentum, Percutaneous Endoscopic Approach (ICD-10-PCS; 2021-01-14)
PROC: 3E0436Z Introduction of Nutritional Substance into Central Vein, Percutaneous Approach (ICD-10-PCS; 2021-01-14)
PROC: 02HV33Z Insertion of Infusion Device into Superior Vena Cava, Percutaneous Approach (ICD-10-PCS; 2021-01-14)
PROC: 30233N1 Transfusion of Nonautologous Red Blood Cells into Peripheral Vein, Percutaneous Approach (ICD-10-PCS; 2021-01-16)
PROC: 0JB80ZZ Excision of Abdomen Subcutaneous Tissue and Fascia, Open Approach (ICD-10-PCS; 2021-01-23)
PROC: 0D1N0Z4 Bypass Sigmoid Colon to Cutaneous, Open Approach (ICD-10-PCS; 2021-01-23)
PROC: 8E0ZXY6 Isolation (ICD-10-PCS; 2021-02-04)
DX: K56.0 Paralytic ileus (principal); L89.153 Pressure ulcer of sacral region, stage 3; T80.211A Bloodstream infection due to central venous catheter, initial encounter; E43 Unspecified severe protein-calorie malnutrition; N18.6 End stage renal disease; A41.9 Sepsis, unspecified organism; R65.20 Severe sepsis without septic shock; J69.0 Pneumonitis due to inhalation of food and vomit; E87.1 Hypo-osmolality and hyponatremia; K94.02 Colostomy infection; I96 Gangrene, not elsewhere classified; I82.611 Acute embolism and thrombosis of superficial veins of right upper extremity; T81.49XA Infection following a procedure, other surgical site, initial encounter; Z16.21 Resistance to vancomycin; L03.311 Cellulitis of abdominal wall; B37.89 Other sites of candidiasis; I12.0 Hypertensive chronic kidney disease with stage 5 chronic kidney disease or end stage renal disease; E11.52 Type 2 diabetes mellitus with diabetic peripheral angiopathy with gangrene; N28.0 Ischemia and infarction of kidney; Z68.41 Body mass index [BMI] 40.0-44.9, adult; K56.51 Intestinal adhesions [bands], with partial obstruction; Z20.822 Contact with and (suspected) exposure to COVID-19; K59.81 Ogilvie syndrome; E11.22 Type 2 diabetes mellitus with diabetic chronic kidney disease; E78.5 Hyperlipidemia, unspecified; E78.00 Pure hypercholesterolemia, unspecified; F03.90 Unspecified dementia, unspecified severity, without behavioral disturbance, psychotic disturbance, mood disturbance, and anxiety; D63.1 Anemia in chronic kidney disease; K59.4 Anal spasm; I25.10 Atherosclerotic heart disease of native coronary artery without angina pectoris; D73.5 Infarction of spleen; K31.7 Polyp of stomach and duodenum; E66.01 Morbid (severe) obesity due to excess calories; K63.89 Other specified diseases of intestine; I87.8 Other specified disorders of veins; E83.39 Other disorders of phosphorus metabolism; D69.6 Thrombocytopenia, unspecified; E87.6 Hypokalemia; R19.5 Other fecal abnormalities; Y83.3 Surgical operation with formation of external stoma as the cause of abnormal reaction of the patient, or of later complication, without mention of misadventure at the time of the procedure; B85.2 Pediculosis, unspecified; B95.2 Enterococcus as the cause of diseases classified elsewhere; E83.42 Hypomagnesemia; R79.89 Other specified abnormal findings of blood chemistry; B96.20 Unspecified Escherichia coli [E. coli] as the cause of diseases classified elsewhere; B96.6 Bacteroides fragilis [B. fragilis] as the cause of diseases classified elsewhere; B96.4 Proteus (mirabilis) (morganii) as the cause of diseases classified elsewhere; R09.02 Hypoxemia; R41.82 Altered mental status, unspecified; Y84.8 Other medical procedures as the cause of abnormal reaction of the patient, or of later complication, without mention of misadventure at the time of the procedure; Z89.511 Acquired absence of right leg below knee; Z79.82 Long term (current) use of aspirin; Z79.02 Long term (current) use of antithrombotics/antiplatelets; Z79.899 Other long term (current) drug therapy; Z99.2 Dependence on renal dialysis; Z90.710 Acquired absence of both cervix and uterus; Z89.512 Acquired absence of left leg below knee; Z79.4 Long term (current) use of insulin
CPT/HCPCS: 36415; 36416; 36430; 36600; 71045; 74018; 74019; 74160; 74177; 74250; 76705; 80048; 80053; 80076; 82040; 82140; 82274; 82805; 82947; 83605; 83690; 83735; 84100; 84134; 85014; 85018; 85025; 85027; 85049; 85652; 86140; 86850; 86900; 86901; 87040; 87070; 87076; 87186; 87205; 87324; 87340; 87449; 87635; 90935; 93005; 93010; 93970; 96374; C9113; G0257; J0690; J0694; J1100; J1200; J1650; J1815; J1885; J2001; J2020; J2185; J2250; J2270; J2405; J2543; J2550; J2704; J2997; J3010; J3475; J3480; J3490; J7050; P9016; Q0163; Q0167; Q5105; Q9963; Q9967; S0020; U0003; U0005